=== PATIENT | male | born 1955 | race Caucasian/White ===

== ENCOUNTER 2017-11-19 21:02 | Inpatient (IN) | payer OTHER ==
[2017-11-19] MEDS ORDERED: AMPICILLIN-SULBACTAM 3 GM in SODIUM CHLORIDE 0.9% 100 ML IVPB STA (21:57)
[2017-11-19 22:37] LABS: Basophils % (A) 0 %; Eosinophils # (A) 0.2 k/uL (0-0.7); Eosinophils % (A) 2 %; HCT 48.6 % (39.0-53.0); HGB 16.4 gm/dL (13.0-17.5); Lymphocytes % (A) 14 %; MCH 30.3 pg (25.0-35.0); MCHC 33.7 g/dL (31.0-37.0); MCV 90.1 fL (80.0-100.0); Mean Platelet Volume 7.6; Monocytes # (A) 0.8 k/uL (0-1.0); Monocytes % (A) 6 %; Neutrophils # (A) 11.4 k/uL (1.3-7.7); Neutrophils % (A) 77 %; Platelet Count 415 k/uL (150-450); RDW 12.3 % (11.5-15.5); WBC 14.7 k/uL (3.8-10.6)
[2017-11-19 22:45] LABS: ALT 18 U/L (21-72); AST 21 U/L (17-59); Albumin 4.5 g/dL (3.5-5.0); Alkaline Phosphatase 119 U/L (38-126); Anion Gap 12 mmol/L; Blood Urea Nitrogen 7 mg/dL (9-20); Calcium 10.1 mg/dL (8.4-10.2); Carbon Dioxide 26 mmol/L (22-30); Chloride 101 mmol/L (98-107); Glucose 111 mg/dL (74-99); Potassium 3.8 mmol/L (3.5-5.1); Sodium 139 mmol/L (137-145); Total Bilirubin 2.7 mg/dL (0.2-1.3); Total Protein 8.1 g/dL (6.3-8.2)
[2017-11-19] MEDS: SODIUM CHLORIDE 0.9% 500 ML 500 ML IV SCH (23:20)
--- NOTE | 2017-11-19 23:38 | CT ---
EXAMINATION TYPE: CT soft tissue neck w con DATE OF EXAM: 11/19/2017 11:17 PM COMPARISON: None HISTORY: congestion CT DLP: 325.5 mGycm Automated exposure control for dose reduction was used. CONTRAST: CT scan of the neck is performed following with IV Contrast, patient injected with 100mL mL of Isovue 300. Axial images are obtained, coronal and sagittal reformatted images are reviewed. FINDINGS: There is normal branching pattern of the great vessels on the aortic arch. There is some heterogeneit y in the thyroid gland consistent with multinodular goiter. There is arterial flow in the vertebral and carotid arteries. There is normal contrast opacification of the jugular veins. Epiglottis appears normal. Subglottic trachea appears normal. Submandibular salivary glands appear normal. Parotid glands are symmetric. There is a 4 x 3 cm mixed density mass involving the right tonsil. This extends inferiorly into the h ypopharynx on the right side. The superior inferior extent of this abnormality is a proximally 6 cm. The mass crosses the midline and there is lobulated density on the left side of the posterior orophar ynx. There is mild mucosal thickening in the right-sided ethmoid sinus and to some extent the right side s phenoid sinus. There is minimal mucosal thickening at the floor right maxillary sinus. There is no ev idence of orbital mass. There are some spondylotic changes in the cervical spine. I see no bony destr uctive process. Mandible and maxilla appear intact. There is significant enlarged lymph nodes or tumor mass involving the anterior triangle on the right side. There is elevation of the right sternocleidomastoid mastoid muscle. This abnormality measures 4 x 3 cm. 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 There is a lso apparent tumor extension involving the anterior triangle right-sided cervical lymph nodes. Minimal ethmoid sphenoid and maxillary sinusitis.
[2017-11-19 23:58] LABS: Appearance,Urine Cloudy (Clear); Bilirubin,Urine Negative (Negative); Blood,Urine Small (Negative); Calcium Oxalate Crystals,Urine Moderate /hpf; Color,Urine Yellow; Glucose,Urine (UA) Negative (Negative); Hyaline Casts,Urine 1 /lpf (0-2); Ketones,Urine Negative (Negative); Leukocyte Esterase,Urine Negative (Negative); Mucus,Urine Moderate /hpf; Nitrite,Urine Negative (Negative); Protein,Urine 1+ (Negative); RBC,Urine 3 /hpf (0-5); Specific Gravity,Urine 1.018 (1.001-1.035); Squamous Epithelial Cell,Urine 1 /hpf (0-4); WBC,Urine 2 /hpf (0-5)
--- NOTE | 2017-11-20 00:15 | ED ---
General Adult HPI - General Source: patient, RN notes reviewed Mode of arrival: ambulatory Limitations: no limitations <Pipe Pereira - Last Filed: 11/19/17 23:58> <Priyanka Napoles P - Last Filed: 11/20/17 00:33> - General Chief complaint: Upper Respiratory Infection Stated complaint: congestion/poss sinus infection Time Seen by Provider: 11/19/17 21:37 - History of Present Illness Initial comments: 62-year-old male without any known past medical history presents to the emergency department for a chief complaint of congestion times one month. Patient states he has felt pressure in his face for about one month. He states he has swelling to the right side of his neck as well. Patient admits he has noticed that his voice began to sound different a few months ago. Patient states he has been a smoker his whole life but recently quit smoking a few weeks ago. Patient denies fevers or chills at home. Patient denies a sore throat but does admit that the right side of his tongue has been painful. Patient denies fevers or chills at home. Patient denies cough, shortness of breath, or difficulty breathing. Patient states he has not seen a doctor in over 35 years. Patient has no other complaints at this time including shortness of breath, chest pain, abdominal pain, nausea or vomiting, headache, or visual changes. (Pipe Pereira) - Related Data Allergies Allergy/AdvReac Type Severity Reaction Status Date / Time No Known Allergies Allergy Verified 11/19/17 21:14 Review of Systems ROS Other: All systems not noted in ROS Statement are negative. <Pipe Pereira - Last Filed: 11/19/17 23:58> ROS Other: All systems not noted in ROS Statement are negative. <Priyanka Napoles P - Last Filed: 11/20/17 00:33> ROS Statement: Those systems with pertinent positive or pertinent negative responses have been documented in the HPI. Past Medical History Past Medical History: No Reported History History of Any Multi-Drug Resistant Organisms: None Reported Past Surgical History: No Surgical Hx Reported Past Psychological History: No Psychological Hx Reported Smoking Status: Former smoker Past Alcohol Use History: None Reported Past Drug Use History: None Reported <Pipe Pereira - Last Filed: 11/19/17 23:58> General Exam Limitations: no limitations General appearance: alert, in no apparent distress Head exam: Present: atraumatic, normocephalic, normal inspection Eye exam: Present: normal appearance, PERRL, EOMI. Absent: scleral icterus, conjunctival injection, periorbital swelling ENT exam: Present: TM's normal bilaterally, normal external ear exam. Absent: normal oropharynx (Oropharynx appears erythematous/beefy and tonsillar pillars on right side of the pharynx appear irregular. ) Neck exam: Present: full ROM, lymphadenopathy (Patient has a very large cervical and submandibular lymph nodes noted to the right side of the neck.). Absent: tenderness, meningismus Respiratory exam: Present: normal lung sounds bilaterally. Absent: respiratory distress, wheezes, rales, rhonchi, stridor Cardiovascular Exam: Present: regular rate, normal rhythm, normal heart sounds. Absent: systolic murmur, diastolic murmur, rubs, gallop, clicks Neurological exam: Present: alert, oriented X3, CN II-XII intact Psychiatric exam: Present: normal affect, normal mood <Pipe Pereira P - Last Filed: 11/19/17 23:58> Vital Signs 11/19/17 11/20/17 21:10 00:02 Temperature 99.7 F H 98.0 F Pulse Rate 111 H 90 Respiratory 16 18 Rate Blood Pressure 142/84 174/92 O2 Sat by Pulse 98 98 Oximetry Medical Decision Making - Lab Data Result diagrams: 11/19/17 20:55 11/19/17 20:55 <Pipe Pereira P - Last Filed: 11/19/17 23:58> - Lab Data Result diagrams: 11/19/17 20:55 11/19/17 20:55 <Priyanka Napoles P - Last Filed: 11/20/17 00:33> - Medical Decision Making Pleasant 62-year-old male presents to the emergency department for a chief complaint of congestion times one month. Patient has not seen a doctor in over 35 years and does not have any known past medical history. Patient has been a smoker his whole life but recently quit "a few weeks ago." Patient admits he has noticed a change in his voice which began a few months ago. Patient thought this could be related to quitting smoking. On exam patient has large submandibular and cervical lymph nodes noted on the right side of the neck. Oropharynx appears beefy and erythematous. Right-sided tonsillar pillars appear irregular. Right side of the tongue is erythematous and there is mild breakdown. Suspected tumor involvement on exam. However as patient was mildly tachycardic with a low-grade temp of 99.7 and a chief complaint of sinusitis sepsis protocol was initiated and patient was started on IV antibiotics at the time. CBC showed a white count of 14.7. Bilirubin 2.7, CMP otherwise unremarkable. CT soft tissue neck with contrast shows a large lobulated right- sided pharyngeal mass consistent with tumor. There is also apparent tumor extension involving the anterior triangle right-sided cervical lymph nodes. Minimal sinusitis noted. Sepsis protocol was discontinued once pharyngeal mass was confirmed. Discussed these results with patient. At this time patient agrees to admission for the hospital for further evaluation. Will be admitted to medicine with ENT consult. (Pipe Pereira) I was available for consultation in the emergency department. The history and physical exam were done by the midlevel provider. I was consulted for this patient's care. I reviewed the case with the midlevel provider and based on their presentation of the patient, I agree with the assessment, medical decision making and plan of care as documented. (Priyanka Napoles) - Lab Data Lab Results 11/19/17 11/19/17 11/19/17 Range/Units 20:55 20:55 20:55 WBC 14.7 H (3.8-10.6) k/uL RBC 5.40 (4.30-5.90) m/uL Hgb 16.4 (13.0-17.5) gm/dL Hct 48.6 (39.0-53.0) % MCV 90.1 (80.0-100.0) fL MCH 30.3 (25.0-35.0) pg MCHC 33.7 (31.0-37.0) g/dL RDW 12.3 (11.5-15.5) % Plt Count 415 (150-450) k/uL Neutrophils % 77 % Lymphocytes % 14 % Monocytes % 6 % Eosinophils % 2 % Basophils % 0 % Neutrophils # 11.4 H (1.3-7.7) k/uL Lymphocytes # 2.0 (1.0-4.8) k/uL Monocytes # 0.8 (0-1.0) k/uL Eosinophils # 0.2 (0-0.7) k/uL Basophils # 0.0 (0-0.2) k/uL Sodium 139 (137-145) mmol/L Potassium 3.8 (3.5-5.1) mmol/L Chloride 101 (98-107) mmol/L Carbon Dioxide 26 (22-30) mmol/L Anion Gap 12 mmol/L BUN 7 L (9-20) mg/dL Creatinine 0.59 L (0.66-1.25) mg/dL Est GFR (CKD-EPI)AfAm >90 (>60 ml/min/1.73 sqM) Est GFR (CKD-EPI)NonAf >90 (>60 ml/min/1.73 sqM) Glucose 111 H (74-99) mg/dL Plasma Lactic Acid Sherman 1.6 (0.7-2.0) mmol/L Calcium 10.1 (8.4-10.2) mg/dL Total Bilirubin 2.7 H (0.2-1.3) mg/dL AST 21 (17-59) U/L ALT 18 L (21-72) U/L Alkaline Phosphatase 119 (38-126) U/L Total Protein 8.1 (6.3-8.2) g/dL Albumin 4.5 (3.5-5.0) g/dL Urine Color Urine Appearance (Clear) Urine pH (5.0-8.0) Ur Specific Interior (1.001-1.035) Urine Protein (Negative) Urine Glucose (UA) (Negative) Urine Ketones (Negative) Urine Blood (Negative) Urine Nitrite (Negative) Urine Bilirubin (Negative) Urine Urobilinogen (<2.0) mg/dL Ur Leukocyte Esterase (Negative) Urine RBC (0-5) /hpf Urine WBC (0-5) /hpf Ur Squamous Epith Cells (0-4) /hpf Calcium Oxalate Crystal (None) /hpf Hyaline Casts (0-2) /lpf Urine Mucus (None) /hpf 11/19/17 Range/Units 23:45 WBC (3.8-10.6) k/uL RBC (4.30-5.90) m/uL Hgb (13.0-17.5) gm/dL Hct (39.0-53.0) % MCV (80.0-100.0) fL MCH (25.0-35.0) pg MCHC (31.0-37.0) g/dL RDW (11.5-15.5) % Plt Count (150-450) k/uL Neutrophils % % Lymphocytes % % Monocytes % % Eosinophils % % Basophils % % Neutrophils # (1.3-7.7) k/uL Lymphocytes # (1.0-4.8) k/uL Monocytes # (0-1.0) k/uL Eosinophils # (0-0.7) k/uL Basophils # (0-0.2) k/uL Sodium (137-145) mmol/L Potassium (3.5-5.1) mmol/L Chloride (98-107) mmol/L Carbon Dioxide (22-30) mmol/L Anion Gap mmol/L BUN (9-20) mg/dL Creatinine (0.66-1.25) mg/dL Est GFR (CKD-EPI)AfAm (>60 ml/min/1.73 sqM) Est GFR (CKD-EPI)NonAf (>60 ml/min/1.73 sqM) Glucose (74-99) mg/dL Plasma Lactic Acid Sherman (0.7-2.0) mmol/L Calcium (8.4-10.2) mg/dL Total Bilirubin (0.2-1.3) mg/dL AST (17-59) U/L ALT (21-72) U/L Alkaline Phosphatase (38-126) U/L Total Protein (6.3-8.2) g/dL Albumin (3.5-5.0) g/dL Urine Color Yellow Urine Appearance Cloudy (Clear) Urine pH 6.0 (5.0-8.0) Ur Specific Interior 1.018 (1.001-1.035) Urine Protein 1+ H (Negative) Urine Glucose (UA) Negative (Negative) Urine Ketones Negative (Negative) Urine Blood Small H (Negative) Urine Nitrite Negative (Negative) Urine Bilirubin Negative (Negative) Urine Urobilinogen 8.0 (<2.0) mg/dL Ur Leukocyte Esterase Negative (Negative) Urine RBC 3 (0-5) /hpf Urine WBC 2 (0-5) /hpf Ur Squamous Epith Cells 1 (0-4) /hpf Calcium Oxalate Crystal Moderate H (None) /hpf Hyaline Casts 1 (0-2) /lpf Urine Mucus Moderate H (None) /hpf Disposition Time of Disposition: 00:15 <Pipe Pereira P - Last Filed: 11/19/17 23:58> <Priyanka Napoles P - Last Filed: 11/20/17 00:33> Clinical Impression: Pharyngeal mass Disposition: ADMITTED IP TO THIS HOSP Condition: Good Referrals: None,Stated [Primary Care Provider] - 1-2 days
[2017-11-20] MEDS ORDERED: NALOXONE 0.4 MG/ML 1 ML VIAL IV PRN (00:17)
[2017-11-20] MEDS ORDERED: ACETAMINOPHEN TAB 325 MG TAB PO PRN (00:17)
[2017-11-20] MEDS: SODIUM CHLORIDE 0.9% 500 ML 500 ML IV SCH ×3 (01:11→06:39)
[2017-11-20] MEDS: SODIUM CHLORIDE 0.9% 1,000 ML IV SCH ×3 (01:14→20:07)
[2017-11-20] MEDS: KETOROLAC 30 MG/ML 1 ML VIAL IVP PRN ×4 (01:15→20:06)
--- NOTE | 2017-11-20 13:45 | P.HPIM ---
History of Present Illness 62-year-old gentleman came in with the complaints of passing condition going on for about a month without any significant mass or discharge denied any cough runny nose. Patient the did smoke for years started noticing a mass in the right side of the neck patient had a soft tissue CAT scan which did show pharyngeal mass which is lobulated, ENT was consulted. Patient denied any fever chills nausea vomiting, any dental pain. She quit smoking a 3 weeks ago, denied any shortness of breath lightheadedness Review of Systems REVIEW OF SYSTEMS: CONSTITUTIONAL: No fever, no malaise, no fatigue. HEENT: No recent visual problems or hearing problems. Denied any sore throat. CARDIOVASCULAR: No chest pain, orthopnea, PND, no palpitations, no syncope. PULMONARY: No shortness of breath, no cough, no hemoptysis. GASTROINTESTINAL: No diarrhea, no nausea, no vomiting, no abdominal pain. Normoactive bowel sounds. NEUROLOGICAL: No headaches, no weakness, no numbness. HEMATOLOGICAL: Denies any bleeding or petechiae. GENITOURINARY: Denies any burning micturition, frequency, or urgency. MUSCULOSKELETAL/RHEUMATOLOGICAL: Denies any joint pain, swelling, or any muscle pain. ENDOCRINE: Denies any polyuria or polydipsia. The rest of the 14-point review of systems is negative. Past Medical History Past Medical History: No Reported History History of Any Multi-Drug Resistant Organisms: None Reported Past Surgical History: No Surgical Hx Reported Past Anesthesia/Blood Transfusion Reactions: No Reported Reaction Smoking Status: Former smoker - Past Family History Father Family Medical History: Cancer Additional Family Medical History / Comment(s): prostate cancer that spread to the brain Mother Family Medical History: Cancer Additional Family Medical History / Comment(s): ovarian cancer Sister(s) Family Medical History: Cancer Additional Family Medical History / Comment(s): breast cancer Medications and Allergies Home Medications Medication Instructions Recorded Confirmed Type Loratadine [Claritin] 10 mg PO DAILY PRN #30 tab 11/20/17 Rx Allergies Allergy/AdvReac Type Severity Reaction Status Date / Time No Known Allergies Allergy Verified 11/20/17 08:11 Physical Exam Vitals: Vital Signs Temp Pulse Pulse Resp BP BP Pulse Ox 11/20/17 07:13 98.2 F 73 16 147/83 99 11/20/17 05:30 89 18 11/20/17 01:48 98.3 F 89 18 164/89 97 11/20/17 01:40 89 18 11/20/17 01:17 98.2 F 86 20 147/89 98 11/20/17 00:02 98.0 F 90 18 174/92 98 11/19/17 21:10 99.7 F H 111 H 16 142/84 98 Intake and Output 11/19/17 11/20/17 11/20/17 22:59 06:59 14:59 Intake Total 1500 Balance 1500 Intake: Intake, IV Titration 1500 Amount Sodium Chloride 0.9% 1, 500 000 ml @ 100 mls/hr IV . Q10H DIANE Rx#:[id number] Sodium Chloride 0.9% 500 1000 ml @ 1000 mls/hr IV Q35M DIANE Rx#:[id number] Other: Voiding Method Toilet Toilet # Voids 2 Weight 81.647 kg 69.9 kg PHYSICAL EXAMINATION: GENERAL: The patient is alert and oriented x3, not in any acute distress. Well developed, well nourished. HEENT: Pupils are round and equally reacting to light. EOMI. No scleral icterus. No conjunctival pallor. Normocephalic, atraumatic. No pharyngeal erythema. No thyromegaly. Patient to no significant definitely congested but there is no tenderness in the maxillary ethmoid R mandibular sinus areas. Patient has a definite palpable right neck mass, hard in consistency CARDIOVASCULAR: S1 and S2 present. No murmurs, rubs, or gallops. PULMONARY: Chest is clear to auscultation, no wheezing or crackles. ABDOMEN: Soft, nontender, nondistended, normoactive bowel sounds. No palpable organomegaly. MUSCULOSKELETAL: No joint swelling or deformity. EXTREMITIES: No cyanosis, clubbing, or pedal edema. NEUROLOGICAL: Gross neurological examination did not reveal any focal deficits. SKIN: No rashes. Results CBC & Chem 7: 11/19/17 20:55 11/19/17 20:55 Labs: Abnormal Lab Results - Last 24 Hours (Table) 11/19/17 11/19/17 11/19/17 Range/Units 20:55 20:55 23:45 WBC 14.7 H (3.8-10.6) k/uL Neutrophils # 11.4 H (1.3-7.7) k/uL BUN 7 L (9-20) mg/dL Creatinine 0.59 L (0.66-1.25) mg/dL Glucose 111 H (74-99) mg/dL Total Bilirubin 2.7 H (0.2-1.3) mg/dL ALT 18 L (21-72) U/L Urine Protein 1+ H (Negative) Urine Blood Small H (Negative) Calcium Oxalate Crystal Moderate H (None) /hpf Urine Mucus Moderate H (None) /hpf Microbiology - Last 24 Hours (Table) 11/19/17 23:45 Urine Culture - Preliminary Urine,Clean Catch Thrombosis Risk Factor Assmnt - Choose All That Apply Any of the Below Risk Factors Present?: Yes Other Risk Factors: Yes Each Risk Factor Represents 2 Points: Age 61-74 years Other congenital or acquired thrombophilia - If yes, enter type in comment: No Thrombosis Risk Factor Assessment Total Risk Factor Score: 2 Thrombosis Risk Factor Assessment Level: Low Risk Assessment and Plan Plan: -Cough and congestion probably due to ALLERGIC rhinitis as a part do not believe patient needs antibiotics unless after ENT evaluation they believe antibiotics and patient will be discharged on antibiotics. Patient will be started on Claritin may benefit from Flonase. -Right-sided pharyngeal mass: Which may need biopsy and ENT will evaluate the patient and will decide on further plan depending on that will decide on his discharge -Leukocytosis reactive in nature -History of nicotine use which she recently quit Rule out urinary tract infection
--- NOTE | 2017-11-20 13:46 | P.DS ---
Providers Date of admission: 11/19/17 23:58 Attending physician: Tara Kumar Consults: 11/20/17 00:17 Consult Physician Stat Consulting Provider: Trevon Westbrook Reason/Comments: pharyngeal mass consistent with tumor Do you want consulting provider notified?: Yes Primary care physician: Stated None Hospital Course: Please refer to HPI and patient will be referred to Dr. Gatica as an outpatient and will follow-up with ENT as an outpatient Patient Condition at Discharge: Good Plan - Discharge Summary Discharge Rx Participant: No New Discharge Prescriptions: New Loratadine [Claritin] 10 mg PO DAILY PRN #30 tab PRN Reason: Cold Symptoms Discharge Medication List Loratadine [Claritin] 10 mg PO DAILY PRN #30 tab 11/20/17 [Rx] Follow up Appointment(s)/Referral(s): Raffi Gatica MD [REFERRING] - 1 Week None,Stated [Primary Care Provider] - 1-2 days Discharge Disposition: HOME SELF-CARE
[2017-11-20] MEDS ORDERED: RX INFO: IV CONTRAST WAS GIVEN 1 EACH MISC MISCELLANE PRN (17:02)
--- NOTE | 2017-11-20 17:16 | P.GSCN ---
History of Present Illness Consult date: 11/20/17 Reason for Consult: Throat swelling Requesting physician: Tara Kumar History of present illness: This is a 62-year-old white male who tells me that he's had a 50 pound weight loss in 2 months of significant difficulty swallowing. He feels a fullness to the right side of his throat and has developed a hot potato voice. 6 months ago he started noticing some swelling to the right neck and right throat. He ignored this but did quit smoking about 2 months ago. He has a 60-[id number]-apem history of smoking. His breathing has become slightly stridorous. He's not able to eat anything but a small amount of liquids. He is not in any distress but is concerned about his progressive throat closure and dysphagia and weight loss. CAT scan evaluation was done showing a large mass of the right oropharynx measuring about 6 cm with some cervical lymphadenopathy. I've been asked to consult regarding this mass. Review of Systems - Constitutional Reports lethargy, Reports malaise, Reports weakness, Reports weight loss, Denies chronic headaches, Denies sweats - EENT Ears, nose, mouth and throat: Reports ant. neck pain, Reports dysphagia, Reports odynophagia, Reports sore throat - Cardiovascular Denies claudication - Respiratory Reports cough - Gastrointestinal Denies bloating - Genitourinary Denies discharge - Musculoskeletal Denies atrophy - Integumentary Denies brittle nails - Neurological Denies balance difficulties - Psychiatric Denies anxiety attacks - Endocrine Endocrine Comment(s): Hot potato voice - Hematologic/Lymphatic Reports lymphadenopathy - Allergic/Immunologic Denies allergic rhinitis Past Medical History Past Medical History: No Reported History History of Any Multi-Drug Resistant Organisms: None Reported Past Surgical History: No Surgical Hx Reported Past Anesthesia/Blood Transfusion Reactions: No Reported Reaction Smoking Status: Former smoker - Past Family History Father Family Medical History: Cancer Additional Family Medical History / Comment(s): prostate cancer that spread to the brain Mother Family Medical History: Cancer Additional Family Medical History / Comment(s): ovarian cancer Sister(s) Family Medical History: Cancer Additional Family Medical History / Comment(s): breast cancer Medications and Allergies Home Medications Medication Instructions Recorded Confirmed Type Loratadine [Claritin] 10 mg PO DAILY PRN #30 tab 11/20/17 Rx Allergies Allergy/AdvReac Type Severity Reaction Status Date / Time No Known Allergies Allergy Verified 11/20/17 08:11 Surgical - Exam Osteopathic Statement: *. No significant issues noted on an osteopathic structural exam other than those noted in the History and Physical/Consult. Vital Signs Temp Pulse Resp BP Pulse Ox 99.7 F H 111 H 16 142/84 98 11/19/17 21:10 11/19/17 21:10 11/19/17 21:10 11/19/17 21:10 11/19/17 21:10 - General cachectic, chronically ill - Eyes PERRL, normal ocular movement - ENT Head is normal cephalic the face is symmetric. Ears the auricles are well- formed canals are clear. Nose is patent with a deviated septum. 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 normal pinna, normal nares, no no congestion - Neck no no masses, no no lymphadectomy - Respiratory normal expansion - Integumentary no rash, no growths - Neurologic normal coordination, normal sensation - Musculoskeletal normal gait - Psychiatric oriented to time, oriented to person, oriented to place, no speech is normal Results - Labs 11/19/17 20:55 11/19/17 20:55 Abnormal Lab Results - Last 24 Hours (Table) 11/19/17 11/19/17 11/19/17 Range/Units 20:55 20:55 23:45 WBC 14.7 H (3.8-10.6) k/uL Neutrophils # 11.4 H (1.3-7.7) k/uL BUN 7 L (9-20) mg/dL Creatinine 0.59 L (0.66-1.25) mg/dL Glucose 111 H (74-99) mg/dL Total Bilirubin 2.7 H (0.2-1.3) mg/dL ALT 18 L (21-72) U/L Urine Protein 1+ H (Negative) Urine Blood Small H (Negative) Calcium Oxalate Crystal Moderate H (None) /hpf Urine Mucus Moderate H (None) /hpf Microbiology - Last 24 Hours (Table) 11/19/17 23:45 Urine Culture - Preliminary Urine,Clean Catch Diabetes panel 11/19/17 Range/Units 20:55 Sodium 139 (137-145) mmol/L Potassium 3.8 (3.5-5.1) mmol/L Chloride 101 (98-107) mmol/L Carbon Dioxide 26 (22-30) mmol/L BUN 7 L (9-20) mg/dL Creatinine 0.59 L (0.66-1.25) mg/dL Glucose 111 H (74-99) mg/dL Calcium 10.1 (8.4-10.2) mg/dL AST 21 (17-59) U/L ALT 18 L (21-72) U/L Alkaline Phosphatase 119 (38-126) U/L Total Protein 8.1 (6.3-8.2) g/dL Albumin 4.5 (3.5-5.0) g/dL Calcium panel 11/19/17 Range/Units 20:55 Calcium 10.1 (8.4-10.2) mg/dL Albumin 4.5 (3.5-5.0) g/dL Pituitary panel 11/19/17 Range/Units 20:55 Sodium 139 (137-145) mmol/L Potassium 3.8 (3.5-5.1) mmol/L Chloride 101 (98-107) mmol/L Carbon Dioxide 26 (22-30) mmol/L BUN 7 L (9-20) mg/dL Creatinine 0.59 L (0.66-1.25) mg/dL Glucose 111 H (74-99) mg/dL Calcium 10.1 (8.4-10.2) mg/dL Adrenal panel 11/19/17 Range/Units 20:55 Sodium 139 (137-145) mmol/L Potassium 3.8 (3.5-5.1) mmol/L Chloride 101 (98-107) mmol/L Carbon Dioxide 26 (22-30) mmol/L BUN 7 L (9-20) mg/dL Creatinine 0.59 L (0.66-1.25) mg/dL Glucose 111 H (74-99) mg/dL Calcium 10.1 (8.4-10.2) mg/dL Total Bilirubin 2.7 H (0.2-1.3) mg/dL AST 21 (17-59) U/L ALT 18 L (21-72) U/L Alkaline Phosphatase 119 (38-126) U/L Total Protein 8.1 (6.3-8.2) g/dL Albumin 4.5 (3.5-5.0) g/dL Assessment and Plan (1) Cervical lymphadenopathy Current Visit: Yes Status: Acute Code(s): R59.0 - LOCALIZED ENLARGED LYMPH NODES SNOMED Code(s): 114482194 (2) Chronic stridor Current Visit: Yes Status: Acute Code(s): R06.1 - STRIDOR SNOMED Code(s): 48321400 (3) Dysphagia Current Visit: Yes Status: Acute Code(s): R13.10 - DYSPHAGIA, UNSPECIFIED SNOMED Code(s): 50901472 (4) Abnormal weight loss Current Visit: Yes Status: Acute Code(s): R63.4 - ABNORMAL WEIGHT LOSS SNOMED Code(s): 550976108 Plan: This patient has a very large 6 cm mass of the oropharynx extending from the nasopharynx down into the hypopharynx crossing the midline. He is developing some stridor and I do think a tracheotomy is needed along with a biopsy of this mass. A fine-needle aspiration is also recommended. Imaging has been ordered and I've consult did GI along with oncology as I suspect this mass is most likely malignant. We will be doing imaging tomorrow and biopsy on along with a tracheotomy. I anticipate he will be in the hospital for several days after tracheotomy. I talked to him and his in detail and have answered all her questions. I did tell him that I suspect this could be a malignancy and they understand this possibility. We will try to get him to eat a pured diet until a feeding tube can be placed. This patient's prognosis is guarded. A referral to a tertiary care center was also discussed and they will think about this option.
--- NOTE | 2017-11-20 17:18 | P.OP ---
Date of Procedure: 11/20/17 Preoperative Diagnosis: Oral pharyngeal mass, stridor, dysphagia Postoperative Diagnosis: Same Procedure(s) Performed: Flexible nasopharyngeal laryngoscopy Anesthesia: none Surgeon: Trevon Westbrook Estimated Blood Loss (ml): 0 Pathology: none sent Condition: stable Disposition: PACU Indications for Procedure: This patient has developed a hot potato voice dysphasia and weight loss. A mass was noted in his oropharynx and then evaluation of his airway was recommended. Operative Findings: Patient is a large 6 cm mass crossing the midline extending from the nasopharynx to the hypopharynx centered around the right tonsillar region. Description of Procedure: An EF type GP nasopharyngoscope was inserted and the patient's left nares and right nares. There is a mass noted in the right nasopharynx we passed the scope along the floor on the left side into the oropharynx and then into the hypopharynx. There was a mass obliterating most of the hypopharynx. The patient is able to breathe but there is some stridor developing. This is suspicious for malignancy.
[2017-11-20] MEDS: LORATADINE 10 MG TAB PO PRN (20:15)
[2017-11-21] MEDS: KETOROLAC 30 MG/ML 1 ML VIAL IVP PRN ×3 (01:18→13:19)
[2017-11-21] MEDS: SODIUM CHLORIDE 0.9% 1,000 ML IV SCH ×2 (05:33→18:44)
[2017-11-21] MEDS: IOPAMIDOL-300 CONTRAST 30 ML VIAL (ORAL USE) PO PRN ×2 (07:00→08:16)
--- NOTE | 2017-11-21 10:16 | CT ---
EXAMINATION TYPE: CT ChestAbdPelvis w con DATE OF EXAM: 11/21/2017 COMPARISON: None HISTORY: pharyngeal mass, possible mets CT DLP: 632.10 mGycm Automated exposure control for dose reduction was used. CONTRAST: CT scan of the chest, abdomen and pelvis is performed with Oral Contrast and with IV Contrast, patien t injected with 100 mL of Isovue 300. FINDINGS: LUNGS: The lungs are remarkable for emphysematous change, paraseptal emphysematous change at the apic es. No evident lung mass. There is no pleural effusion or pneumothorax seen. The tracheobronchial tr ee is patent. MEDIASTINUM: There are no greater than 1 cm hilar or mediastinal lymph nodes. No pericardial effusi on is seen. AORTA: No significant abnormality is seen. OTHER: No additional significant abnormality is seen. LIVER/GB: Within the posterior aspect of the right lobe of the liver at the level of the dome, axial image 44, coronal image 54 there is an enhancing focus measuring approximately 1.5 x 2 cm. Gallbladde r is normal. PANCREAS: No significant abnormality is seen. SPLEEN: No significant abnormality is seen. ADRENALS: No significant abnormality is seen. KIDNEYS: No significant abnormality is seen. REPRODUCTIVE ORGANS: No gross abnormality seen. BOWEL: No significant abnormality is seen. The appendix fills with contrast and is unremarkable. FREE AIR: No Free Air visible. ASCITES: None seen. RETROPERITONEAL ADENOPATHY: No retroperitoneal adenopathy is seen. LYMPH NODES: No greater than 1 cm abdominal or pelvic lymph nodes are appreciated. URINARY BLADDER: No significant abnormality is seen. PELVIC ADENOPATHY: None visualized. OSSEOUS STRUCTURES: Degenerative disc changes are present in the lumbar spine, there is multilevel sp ondylosis. IMPRESSION: Indeterminate right lobe liver lesion. Metastasis within the differential. Liver MRI with contrast may be of benefit.
--- NOTE | 2017-11-21 10:21 | P.CONS ---
History of Present Illness - Reason for Consult Consult date: 11/21/17 Dysphagia PEG tube evaluation Requesting physician: Tara Kumar - Chief Complaint Right neck swelling congestion - History of Present Illness 62-year-old male admitted with multiple complaints hoarseness, rhinitis, facial swelling, right neck edema with difficulty swallowing solids and liquids with mild odynophagia. CT soft tissue neck for 3 cm mixed with the mass involving the right tonsil extending inferiorly into the hypopharynx on the right side the mass crosses the midline and there is lobulated density in the left side of the posterior oropharynx. He underwent flexible nasopharyngeal laryngoscopy yesterday with findings of a large 6 m mass crossing the midline extending from the nasopharynx to the hypopharynx centered around the right tonsillar region. Consult requested for PEG tube evaluation for nutrition support and dysphagia secondary to the above CT endoscopic findings. Denies hematemesis hematochezia or melena. No history of gastric or bowel surgeries. Quit smoking 3 weeks ago. He is scheduled for triple endoscopy tracheostomy FNA tomorrow with ENT. White count 14.7. Hemoglobin 16.4. BUN 7. Creatinine 0.5. No aspirin and NSAIDs or anticoagulant medications. Review of Systems Constitutional: Denies fever, chills, sweats, weight gain, reports mild weight loss. HEENT: Negative for migraines, blurred vision or loss, earaches, reports increased nasal drainage, tinnitus, see HPI right neck swelling, reports dysphagia, and mild odynophagia. Cardiac: Negative for chest pain, arrhythmias, or palpitation. Respiratory: Negative for shortness of breath, hemoptysis, cough, or sputum production. Gastrointestinal: See HPI for pertinent findings. Genitourinary: Negative for hematuria, urgency, frequency, polyuria, dysuria, or penile discharge. Musculoskeletal: Negative for muscle aches, swelling, arthritis, and arthralgias. Neurologic: Negative for stroke or TIA. Endocrine: Negative for thyroid problems. Skin: Negative for rash or itching. Psychiatric: Negative history for depression and anxiety Past Medical History Past Medical History: No Reported History History of Any Multi-Drug Resistant Organisms: None Reported Past Surgical History: No Surgical Hx Reported Past Anesthesia/Blood Transfusion Reactions: No Reported Reaction Smoking Status: Former smoker - Past Family History Father Family Medical History: Cancer Additional Family Medical History / Comment(s): prostate cancer that spread to the brain Mother Family Medical History: Cancer Additional Family Medical History / Comment(s): ovarian cancer Sister(s) Family Medical History: Cancer Additional Family Medical History / Comment(s): breast cancer Medications and Allergies Home Medications Medication Instructions Recorded Confirmed Type Loratadine [Claritin] 10 mg PO DAILY PRN #30 tab 11/20/17 Rx Allergies Allergy/AdvReac Type Severity Reaction Status Date / Time No Known Allergies Allergy Verified 11/20/17 08:11 Physical Exam Vitals: Vital Signs Temp Pulse Resp BP BP Pulse Ox 11/21/17 07:15 97.9 F 79 18 137/87 98 11/21/17 04:00 15 11/20/17 23:57 98.2 F 63 15 125/72 97 11/20/17 23:42 71 16 11/20/17 20:10 71 16 11/20/17 19:32 97.4 F L 16 147/73 98 11/20/17 16:57 98 11/20/17 15:46 97.8 F 71 18 138/76 98 Intake and Output 11/20/17 11/21/17 11/21/17 22:59 06:59 14:59 Intake Total 565 Balance 565 Intake: Intake, IV Titration 300 Amount Sodium Chloride 0.9% 1, 300 000 ml @ 100 mls/hr IV . Q10H DIANE Rx#:[id number] Oral 265 Other: Voiding Method Toilet Toilet # Voids 2 General appearance: The patient is alert, oriented, in no acute distress. Voice is hoarse. HET: Head is normocephalic and atraumatic. Pupils are equal and reactive. Oropharynx is with noticeable right tonsillar mass erythematous with mild . Neck: Supple. Trachea midline. Heart: S1 S2. Regular rate and rhythm. Lungs: No crackles or wheezes are heard. Abdomen: Soft, nontender, nondistended with bowel sounds. No peritoneal signs. No palpable organomegaly or masses. Extremities: Normal skin color and turgor. No cyanosis, rash, ulceration, clubbing, or edema. Radial and pedal pulses are 2/4 bilaterally. Neurological: No focal deficits. Strength and sensation are grossly intact. Results CBC & Chem 7: 11/19/17 20:55 11/19/17 20:55 Labs: Microbiology - Last 24 Hours (Table) 11/19/17 20:55 Blood Culture - Preliminary Blood No Growth after 24 hours 11/19/17 23:45 Urine Culture - Preliminary Urine,Clean Catch Comments: CT neck report reviewed by Dr. Medina Assessment and Plan (1) Dysphagia Narrative/Plan: 62-year-old male admitted with multiple constitutional symptoms including rhinitis hoarseness right neck swelling and dysphagia mild odynophagia secondary to large 6 cm mass crossing the midline extending from the nasopharynx to the hypopharynx and around the right tonsillar region status post flexible nasopharyngeal laryngoscopy. Patient is unable to meet his nutritional needs secondary to tonsillar mass. Current Visit: Yes Status: Acute Code(s): R13.10 - DYSPHAGIA, UNSPECIFIED SNOMED Code(s): 61093949 (2) Pharyngeal mass Current Visit: Yes Status: Acute Code(s): J39.2 - OTHER DISEASES OF PHARYNX SNOMED Code(s): 872598203 Plan: 1. PEG tube insertion tomorrow morning 0700. Patient is scheduled for tracheostomy triple endoscopy FNA tomorrow with ENT. 2. Prealbumin. Dietary consultation for tube feeds. The orbitread operator has discussed the risks, benefits and alternative therapies for the above-mentioned procedure and for both sedation/analgesia as well as necessary blood product administration, if indicated, as they pertain to this patient. The patient has indicated understanding and acceptance of the risks and procedures discussed. Thank you for this kind referral and the opportunity to participate in the care of your patient. This consultation was discussed with Dr. Medina. The impression and plan of care have been directed as dictated.
--- NOTE | 2017-11-21 15:33 | P.PN ---
Subjective 60-year-old man was admitted the parapharyngeal mass in the right side found to have mass in the right nares extending up to the posterior hypopharynx there is a concern about airway obstruction because of which she and is recommending an emergency tracheostomy followed by PEG tube placement and then biopsy. Although at this point of time doesn't have any stridor. Constitutional: Denied any fatigue denied any fever. Cardio vascular: denied any chest pain, palpitations Gastrointestinal denied any nausea vomiting Pulmonary: Denied any shortness of breath cough Neurologic denied any new focal deficits Objective - Vital Signs Vital signs: Vital Signs Temp 98.0 F 11/21/17 11:15 Pulse 81 11/21/17 11:15 Resp 18 11/21/17 11:15 BP 143/76 11/21/17 11:15 Pulse Ox 98 11/21/17 11:15 Intake & Output 11/20/17 11/21/17 11/21/17 18:59 06:59 18:59 Intake Total 604 565 598 Balance 604 565 598 Weight 69.9 kg 69.9 kg Intake: Intake, IV Titration 300 Amount Sodium Chloride 0.9% 1, 300 000 ml @ 100 mls/hr IV . Q10H DIANE Rx#:[id number] Oral 604 265 598 Other: Voiding Method Toilet Toilet Toilet # Voids 1 2 3 - Exam PHYSICAL EXAMINATION: GENERAL: The patient is alert and oriented x3, not in any acute distress. Well developed, well nourished. HEENT: Pupils are round and equally reacting to light. EOMI. No scleral icterus. No conjunctival pallor. Normocephalic, atraumatic. No pharyngeal erythema. No thyromegaly. Patient has a right pharyngeal mass which is hard to palpate CARDIOVASCULAR: S1 and S2 present. No murmurs, rubs, or gallops. PULMONARY: Chest is clear to auscultation, no wheezing or crackles. ABDOMEN: Soft, nontender, nondistended, normoactive bowel sounds. No palpable organomegaly. MUSCULOSKELETAL: No joint swelling or deformity. EXTREMITIES: No cyanosis, clubbing, or pedal edema. NEUROLOGICAL: Gross neurological examination did not reveal any focal deficits. SKIN: No rashes. - Labs CBC & Chem 7: 11/19/17 20:55 11/19/17 20:55 Labs: Microbiology - Last 24 Hours (Table) 11/19/17 23:45 Urine Culture - Final Urine,Clean Catch 11/19/17 20:55 Blood Culture - Preliminary Blood No Growth after 24 hours Assessment and Plan Plan: -Right-sided nasopharyngeal mass: There is a concern of airway and the esophageal obstruction because of which patient will undergo tracheostomy and PEG tube placement followed by biopsy of this mass ENT evaluated the patient. -Leukocytosis reactive in nature -History of nicotine use which she recently quit Ruled out urinary tract infection
--- NOTE | 2017-11-21 16:17 | P.CONS ---
History of Present Illness - Reason for Consult Consult date: 11/21/17 oropharyngeal mass Requesting physician: Trevon Westbrook - Chief Complaint congestion, facila pressure, right neck mass - History of Present Illness Mr. Dotson is a very pleasant male pt with a benign past medical history. In the last month pt has had progressive swelling in the right neck, associated changes in speech,feelings of nasal congestion, mild dysphagia and audible breathing changes. The mass is hard but not painful. Pt denied fevers, night sweats, odynophagia, nausea, vomiting,chest pain, new cough, hemoptysis, abd pain, acute changes in bowel or bladder habits, swelling, bleeding or pain. Review of Systems 14 point ROS as stated in HPI Past Medical History Past Medical History: No Reported History History of Any Multi-Drug Resistant Organisms: None Reported Past Surgical History: No Surgical Hx Reported Past Anesthesia/Blood Transfusion Reactions: No Reported Reaction Past Psychological History: No Psychological Hx Reported Smoking Status: Former smoker Additional Past Alcohol Use History / Comment(s): Used to drink quite a bit of beer, quit several years ago Past Drug Use History: None Reported - Past Family History Father Family Medical History: Cancer Additional Family Medical History / Comment(s): prostate cancer that spread to the brain Mother Family Medical History: Cancer Additional Family Medical History / Comment(s): ovarian cancer Sister(s) Family Medical History: Cancer Additional Family Medical History / Comment(s): breast cancer Medications and Allergies Home Medications Medication Instructions Recorded Confirmed Type Loratadine [Claritin] 10 mg PO DAILY PRN #30 tab 11/20/17 Rx Allergies Allergy/AdvReac Type Severity Reaction Status Date / Time No Known Allergies Allergy Verified 11/20/17 08:11 Physical Exam Vitals: Vital Signs Temp Pulse Resp BP BP Pulse Ox 11/21/17 15:46 97.5 F L 75 18 139/81 98 11/21/17 11:15 98.0 F 81 18 143/76 98 11/21/17 07:15 97.9 F 79 18 137/87 98 11/21/17 04:00 15 11/20/17 23:57 98.2 F 63 15 125/72 97 11/20/17 23:42 71 16 11/20/17 20:10 71 16 11/20/17 19:32 97.4 F L 16 147/73 98 11/20/17 16:57 98 Intake and Output 11/21/17 11/21/17 11/21/17 06:59 14:59 22:59 Intake Total 598 Balance 598 Intake: Oral 598 Other: Voiding Method Toilet Toilet # Voids 3 Weight 69.9 kg - Constitutional General appearance: average body habitus, cooperative, no acute distress - EENT posterior, right soft palet deformity noted, not bleeding or draining Eyes: anicteric sclerae - Neck Elongated, hard, fixed mass approx 5cm in the anterior cervical chain, lymph node superior to that is palpable, there is mild trach deviation to the left, audible respirations, speech is impacted, nasal sounding Neck: lymphadenopathy, stridor - Respiratory Respiratory: bilateral: CTA - Cardiovascular Rhythm: regular Heart sounds: normal: S1, S2 Abnormal Heart Sounds: no systolic murmur, no diastolic murmur, no rub, no S3 Gallop, no S4 Gallop, no click, no other leg Peripheral Edema: bilateral: None - Gastrointestinal General gastrointestinal: no absent bowel sounds, no decreased bowel sounds, no distended, no hepatomegaly, no hyperactive bowel sounds, normal bowel sounds, no organomegaly, no rigid, no scaphoid, soft, no splenomegaly, no tenderness, no umbilical hernia, no ventral hernia - Integumentary Integumentary: normal - Neurologic Neurologic: CNII-XII intact - Musculoskeletal Musculoskeletal: strength equal bilaterally - Psychiatric Psychiatric: A&O x's 3, appropriate affect, intact judgment & insight Results CBC & Chem 7: 11/19/17 20:55 11/19/17 20:55 Labs: Microbiology - Last 24 Hours (Table) 11/19/17 23:45 Urine Culture - Final Urine,Clean Catch 11/19/17 20:55 Blood Culture - Preliminary Blood No Growth after 24 hours Comments: CT neck soft tissue report reviewed CT scan - abdomen: report reviewed CT scan - chest: report reviewed CT scan - pelvis: report reviewed Assessment and Plan (1) Pharyngeal mass Narrative/Plan: Pending biopsy with ENT Dr. Westbrook. Reviewed with pt concerns for malignancy and need for biopsy to determine origin-squamous cell, lymphoma...It was explained that no treatment plan or prognosis can be given until diagnosis and staging is complete. Pt verbalized understanding, is going to proceed with biopsy. We will plan for a PET outpatient and a f/u with Dr. Barron 3-5 days later for biopsy results/diagnosis, prognosis and treatment options. Current Visit: Yes Status: Acute Priority: High Code(s): J39.2 - OTHER DISEASES OF PHARYNX SNOMED Code(s): 003135780 (2) Cervical lymphadenopathy Current Visit: Yes Status: Acute Priority: High Code(s): R59.0 - LOCALIZED ENLARGED LYMPH NODES SNOMED Code(s): 544405868 (3) Dysphagia Narrative/Plan: PEG tube for feeding has already been discussed with pt and there is a consult for GI. Current Visit: Yes Status: Acute Priority: High Code(s): R13.10 - DYSPHAGIA, UNSPECIFIED SNOMED Code(s): 04326967 (4) Abnormal weight loss Narrative/Plan: Secondary to malignancy and from diet modification due to dysphagia Current Visit: Yes Status: Acute Priority: High Code(s): R63.4 - ABNORMAL WEIGHT LOSS SNOMED Code(s): 447540195 Plan: Attests: I have performed H&P and developed impression and plan of care of patient, discussed with dictator. I agree with dictated note, documented as a scribe.
[2017-11-21] MEDS: MORPHINE SULFATE 4 MG/ML SYRINGE IVP PRN ×2 (18:36→22:03)
[2017-11-21 20:20] LABS: INR 1.1 (<1.2); Prothrombin Time 10.8 sec (9.0-12.0)
[2017-11-22] MEDS: ONDANSETRON 4 MG/2 ML VIAL IVP PRN ×2 (01:00→13:41)
[2017-11-22] MEDS: SODIUM CHLORIDE 0.9% 1,000 ML IV SCH ×2 (03:47→15:55)
[2017-11-22] MEDS ORDERED: ceFAZolin IN SWFI 2 GM/20 ML SYRINGE IVP ONE (06:00)
[2017-11-22] MEDS ORDERED: DEXAMETHASONE SOD PHOSPHATE 10 MG/ML 1 ML VIAL IV ONE (06:01)
[2017-11-22] MEDS ORDERED: SCOPOLAMINE 1.5MG/72HR PATCH TRANSDERM ONE (06:01)
[2017-11-22] MEDS ORDERED: LACTATED RINGERS 1,000 ML IV SCH ×2 (06:01)
[2017-11-22] MEDS ORDERED: ONDANSETRON 4 MG/2 ML VIAL IVP ONE ×2 (06:01→08:42)
[2017-11-22] MEDS ORDERED: MIDAZOLAM 2 MG/2 ML VIAL IV PRN (06:01)
[2017-11-22] MEDS: MORPHINE SULFATE 4 MG/ML SYRINGE IVP PRN (06:40)
[2017-11-22] MEDS ORDERED: IV FLUID CONTINUATION 600 ML IV ONE (07:08)
--- NOTE | 2017-11-22 07:38 | P.PCN ---
Date of Procedure: 11/22/17 Procedure(s) Performed: Brief history: Patient is a 62-year-old pleasant white male, admitted to the hospital with cough dysphagia and hoarseness associated with loss of several weeks duration. He was diagnosed with a large hypopharyngeal mass and he scheduled for a couple of endoscopy today by Dr. Westbrook. In the meantime because of severe dysphagia and he is scheduled for an EGD with PEG tube placement today. Procedure performed: EGD with PEG tube placement Preoperative diagnosis: Hypopharyngeal mass/severe dysphagia to solids IV sedation by anesthesia Procedure: After informed consent was obtained with the patient as well as the family the patient was brought into the endoscopy unit. IV conscious sedation was administered by anesthesia under continuous monitoring. The Olympus GF 160 video endoscope was inserted into the mouth. There was a hypopharyngeal mass located on the right side of the hypopharynx. The esophagus intubated without any difficulty and was gradually advanced to the stomach and duodenum. The bulb and second part of the duodenum was visualized which appeared normal. The scope at this time was withdrawn to the stomach adequately insufflated with air. Adequate transillumination was achieved onto the anterior abdominal wall. At the site of adequate transillumination and maximal finger indentation, on the anterior abdominal wall, this area was sterilely prepped and draped. One percent Xylocaine was infiltrated into the skin and a small incision was made. Trocar and cannula was passed through the incision into the stomach cavity. The trocar was removed. Guidewire was passed through the cannula into the stomach cavity which was held by the snare that was passed through the scope. The guidewire along with the scope was gently withdrawn from the stomach esophagus out of the mouth. A 20-[place] [employer] PEG tube was passed over the guidewire and was gently advanced into the mouth and esophagus and stomach. With gentle traction the guidewire along with the PEG tube was pulled from the anterior abdominal wall until the internal bumper appeared to be in secure position. Repeat EGD was performed and the esophagus intubated without any difficulty and was advanced into the stomach. The internal bumper appeared to be in secure position. The visualized portions of the antrum body cardia and fundus of the stomach appeared normal. The esophagus was carefully examined as the scope was gradually being withdrawn which appeared normal. At this time external bumper was placed on the PEG tube closer to the anterior abdominal wall at 3 cm mohinder. The patient tolerated the procedure well. Impression: Successful 20-[place] [employer] PEG tube placement as described above. Recommendations: Findings of this examination were discussed with the patient's family. The patient will be started on tube feeds tomorrow. Post-PEG tube orders were written.
[2017-11-22] MEDS ORDERED: PHENYLEPHRINE-0.9% NACL SYG 1 MG/10 ML SYRINGE ONE (10:56)
[2017-11-22] MEDS ORDERED: LIDOCAINE 1% INJ 10MG/ML (20 ML MDV) ONE (10:56)
[2017-11-22] MEDS ORDERED: KETAMINE 10 MG/ML 20 ML VIAL ONE (10:56)
[2017-11-22] MEDS ORDERED: PROPOFOL 10 MG/ML 20 ML VIAL IV ONE (10:56)
[2017-11-22] MEDS ORDERED: MIDAZOLAM 2 MG/2 ML VIAL ONE (10:56)
[2017-11-22] MEDS ORDERED: IV FLUID CONTINUATION 1,000 ML IV ONE (10:59)
[2017-11-22] MEDS ORDERED: ceFAZolin 1,000 MG VIAL IVPB ONE (11:10)
[2017-11-22] MEDS ORDERED: LIDOCAINE 1%-EPI 1:100,000 30 ML VIAL SQ ONE (11:13)
[2017-11-22] MEDS ORDERED: FLUORESCEIN STRIPS 1 MG STRIP MISCELLANE ONE (11:14)
[2017-11-22] MEDS ORDERED: BUPIVACAIN-EPI 0.5%-1:200,000 30 ML VIAL SQ ONE (11:14)
[2017-11-22] MEDS ORDERED: EPINEPHrine 1 MG/ML (MDV) 30 ML VIAL IRRIGATION ONE (11:14)
[2017-11-22] MEDS ORDERED: LACTATED RINGERS 1,000 ML IV ONE (11:33)
--- NOTE | 2017-11-22 12:26 | OP ---
OPERATIVE REPORT DATE OF SERVICE: 11/22/2017. SURGEON: Trevon Westbrook D.O. ANESTHESIA: General. 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 OPERATIVE PROCEDURE: 1. Tracheotomy with ligation of thyroid isthmus and the isthmusectomy. 2. Fine-needle aspiration right neck mass and direct microscopic laryngoscopy with biopsy of oropharyngeal mass. BLOOD LOSS: Minimal. COMPLICATIONS: None. CONDITION: Excellent. OPERATIVE INDICATIONS: This patient has a large mass of the oropharynx causing stridor. Tracheotomy to secure his airway was recommended and biopsy of course was recommended. All risks, benefits, and alternative therapies were discussed. Consent was obtained and all questions were answered. OPERATIVE FINDINGS: Patient had a massive oropharyngeal mass, appears to be emanating from the right oropharynx in the tonsillar area emanating up into the nasopharynx down into the hypopharynx and across the midline to the left side of the throat. OPERATIVE PROCEDURE: This patient was taken to the operating room, placed in the supine position. IV sedation minimally was given to the patient. Neck was sterilely prepped and draped in usual fashion and the neck was injected with lidocaine 1% with epinephrine 1:100,000. A midline incision was made from the cricoid to the suprasternal notch and dissection was carried down to the strap muscles. The strap muscles were in the midline. The thyroid isthmus was identified and a thyroid isthmusectomy was performed utilizing a LigaSure, exposing the trachea. However, made an incision into the trachea between the second and third tracheal rings and an inferiorly-based flap was developed, an XLT Shiley tube #8 was inserted and nonfenestrated. The incision was closed with Vicryl utilizing a 4-0 Vicryl. The trach plates were sutured to the skin with the use of 3.0 and 2.0 silk and a trach tie was placed and the trach incision was closed appropriately. Excellent hemostasis was obtained. After the trach tube was inserted and the thyroid isthmusectomy was performed and the incision was closed, we ended at mouth and throat with an Jako laryngoscope. The patient had terrible dental care and his teeth were severely decayed. The laryngoscopy and biopsy was a bit limited and we did utilize the microscope, but because of the massive tumor, we were unable to extend into the entire length of the hypopharynx. Biopsies were taken of the right oropharynx and all instrumentation was removed. The patient tolerated this well. Neck underwent a fine-needle aspiration with a 22-gauge needle into a right neck mass. This was sent for pathology. Patient tolerated this well. Follow up will be in the office in 1 week. The patient is to be taken to the intensive care unit for close observation. His tracheotomy care by Respiratory Therapy has been ordered. MMODL / IJN: [id number] /
[2017-11-22 13:36] LABS: Glucose,Whole Blood 108 mg/dL (75-99)
--- NOTE | 2017-11-22 14:33 | P.CNPUL ---
History of Present Illness Consult date: 11/22/17 Requesting physician: Servando Jiménez Reason for consult: other (ICU management) Chief complaint: Right neck mass History of present illness: This is a 62-year-old white male, [id number] smoker, however he quit smoking about 2 months ago. Patient presented with 1 month history of progressive swelling in the right neck associated with speech changes and nasal congestion, dysphasia,and dysphagia. Patient has also been complaining of weight loss, lost about 40 pounds in the last few months. Mass was noted to be hard but not painful, he had no night sweats, no nausea no vomiting, no chest pain, no cough , no wheezing, no hemoptysis. Patient also developed a hot potato voice. Recently his breathing has become slightly stridorous, also unable to eat anything but a small amount of liquids patient was mostly concerned about the progressive closure of his throat and difficulty swallowing. He was also concerned about the weight loss. CT of the neck showed large mass in the right oropharynx measuring 6 AM with some cervical lymphadenopathy. Admitted and he was seen already by many consultants including ENT, oncology, gastroenterology, and he underwent tracheostomy today, lymph node biopsy and pharyngeal biopsy done by Dr. Zamarripa. Patient had fine-needle aspiration of the right neck mass, and direct microscopic H Heron P with biopsy of oropharyngeal mass. Postoperatively patient had tracheostomy in place, on 40% trach collar, admitted to the ICU, and I was asked to see him on consultation. Patient also underwent EGD and PEG tube placement by Dr. Rajan. Review of Systems 14 point review of systems were obtained, please refer to pertinent positives in HPI, otherwise remaining systems are negative. Past Medical History Past Medical History: No Reported History History of Any Multi-Drug Resistant Organisms: None Reported Past Surgical History: No Surgical Hx Reported Past Anesthesia/Blood Transfusion Reactions: No Reported Reaction Past Psychological History: No Psychological Hx Reported Smoking Status: Former smoker Additional Past Alcohol Use History / Comment(s): Used to drink quite a bit of beer, quit several years ago Past Drug Use History: None Reported - Past Family History Father Family Medical History: Cancer Additional Family Medical History / Comment(s): prostate cancer that spread to the brain Mother Family Medical History: Cancer Additional Family Medical History / Comment(s): ovarian cancer Sister(s) Family Medical History: Cancer Additional Family Medical History / Comment(s): breast cancer Medications and Allergies Home Medications Medication Instructions Recorded Confirmed Type Loratadine [Claritin] 10 mg PO DAILY PRN #30 tab 11/20/17 Rx Allergies Allergy/AdvReac Type Severity Reaction Status Date / Time No Known Allergies Allergy Verified 11/20/17 08:11 Physical Exam Vitals: Vital Signs Temp Pulse Pulse Resp BP Pulse Ox 11/22/17 13:00 99 18 146/72 98 11/22/17 12:45 97 18 133/82 99 11/22/17 12:30 99 18 147/81 99 11/22/17 12:14 98.3 F 96 20 124/73 94 L 11/22/17 10:32 79 18 137/82 97 11/22/17 10:00 78 20 133/71 94 L 11/22/17 09:30 76 20 135/70 93 L 11/22/17 09:00 77 20 124/74 96 11/22/17 08:53 80 18 154/79 95 11/22/17 08:45 85 20 154/79 96 11/22/17 08:30 83 20 150/62 96 11/22/17 08:15 90 20 155/62 97 11/22/17 08:00 85 20 162/83 96 11/22/17 07:51 97.3 F L 91 22 159/79 97 11/22/17 03:42 16 11/22/17 00:00 16 11/21/17 23:33 98.0 F 67 15 132/76 98 11/21/17 20:00 15 11/21/17 19:19 98.0 F 79 15 133/81 97 11/21/17 16:57 98 11/21/17 16:00 18 11/21/17 15:46 97.5 F L 75 18 139/81 98 Intake and Output 11/21/17 11/22/17 11/22/17 22:59 06:59 14:59 Intake Total 118 1000 Output Total 5 Balance 118 995 Intake: IV 1000 Oral 118 Output: Estimated Blood Loss 5 Other: Voiding Method Toilet Toilet # Voids 1 1 Physical Exam: Revealed a 62-year-old white male, resting in bed, tracheostomy in place, in no form of distress. Head: Atraumatic, normocephalic. HEENT:[Neck is supple.] Tracheostomy and trach collar in place, hard fixed mass approximately 5 cm in the anterior cervical chain, and superior lymph nodes palpable. PERRLA, EOMI, no icterus. Chest: [Harsh breath sound bilaterally, some rhonchi noted, no wheezes. Symmetrical expansion. No chest wall tenderness. Cardiac Exam: [Normal S1 and S2, no S3 gallop, no murmur.] Abdomen: [Soft, nontender, no megaly, no rebound, no guarding, normal bowel sounds.] Extremities: [No clubbing, no edema, no cyanosis.] Neurological Exam: [No focal neurologic deficit.] Lymphatics: As noted above. Musculoskeletal: Normal range of motion, no deformities. Psychiatric: Normal mood affect and mental status examination. Results - Laboratory Findings CBC and BMP: 11/19/17 20:55 11/19/17 20:55 PT/INR, D-dimer PT 10.8 sec (9.0-12.0) 11/21/17 19:45 INR 1.1 (<1.2) 11/21/17 19:45 Abnormal lab findings: Abnormal Labs 11/19/17 11/19/17 11/19/17 20:55 20:55 23:45 WBC 14.7 H Neutrophils # 11.4 H BUN 7 L Creatinine 0.59 L Glucose 111 H POC Glucose (mg/dL) Total Bilirubin 2.7 H ALT 18 L Prealbumin Urine Protein 1+ H Urine Blood Small H Calcium Oxalate Crystal Moderate H Urine Mucus Moderate H 11/21/17 11/22/17 19:45 13:34 WBC Neutrophils # BUN Creatinine Glucose POC Glucose (mg/dL) 108 H Total Bilirubin ALT Prealbumin 8.0 L Urine Protein Urine Blood Calcium Oxalate Crystal Urine Mucus - Diagnostic Findings Comments: CT of abdomen and chest neck pelvis report was noted. Assessment and Plan Assessment: Impression: 1 status post tracheostomy for impending respiratory failure secondary to large pharyngeal mass, status post biopsy of the mass, and fine-needle aspiration of cervical lymph node. 2 cervical lymphadenopathy considered to be malignant unless proven otherwise. 3 dysphagia secondary to neck mass 4 significant weight loss secondary to underlying malignancy 5 suspect some component of chronic obstructive lung disease 6 status post EGD and PEG tube placement 7 intermediate right lower lobe lesion may have to be further investigated once a tissue diagnosis is made on the pharyngeal mass. Recommendation: I fully agree with the present treatment plan, continue trach collar, titrate FiO2 to keep saturation above 90%, placed on bronchodilators, nutritional support via PEG to be started tomorrow, await final pathology from the biopsy of the pharyngeal mass and the lymph nodes. We'll continue to follow. Patient will be monitored in the ICU overnight. Time with Patient: Greater than 30
--- NOTE | 2017-11-22 15:37 | XR ---
EXAMINATION TYPE: XR chest 1V portable DATE OF EXAM: 11/22/2017 CLINICAL HISTORY: Difficulty breathing progress study. Tracheostomy tube placed today. TECHNIQUE: Single AP portable upright view of the chest is obtained. COMPARISON: CT from one day earlier FINDINGS: There is background chronic emphysematous change. There is suspected new tiny right apical pneumothorax. New tracheostomy tube is satisfactory in position. There is new pneumomediastinum supr aclavicular region, right greater than left. Some new patchy left basilar atelectasis is present. Rigo e subcutaneous emphysema may be present in the left lower lateral chest wall. Cardiac silhouette size is within normal limits. New pneumomediastinum is noted along left heart border. Osseous structures are intact. IMPRESSION: New tracheostomy tube satisfactory in position. New Pneumomediastinum is present. Suspect left-sided subcutaneous emphysema. Tiny right apical pneumothorax is noted. New left Basilar atelect asis. A Yellow level critical message alert has been initiated for Trevon Westbrook via the [employer] Critical Results System on 11/22/2017 3:34 PM. This message alert has been sent to Trevon benz via the preferences provided by the clinician for the receipt of Radiology Critical Findin gs. Message ID [id number].
[2017-11-22] MEDS: KETOROLAC 30 MG/ML 1 ML VIAL IVP PRN (15:54)
[2017-11-22] MEDS: IPRATROPIUM-ALBUTEROL 3 ML NEB INHALATION SCH ×2 (16:06→20:51)
[2017-11-22] MEDS ORDERED: METOCLOPRAMIDE 5 MG/ML 2 ML VIAL ONE (16:22)
--- NOTE | 2017-11-22 16:37 | P.PN ---
Subjective 62-year-old man was admitted the parapharyngeal mass in the right side found to have mass in the right nares extending up to the posterior hypopharynx there is a concern about airway obstruction because of which she and is recommending an emergency tracheostomy followed by PEG tube placement and then biopsy. Although at this point of time doesn't have any stridor. 11/22/2017 Patient underwent the tracheostomy, biopsy as well as PEG tube placement is admitted to ICU nonverbal now Objective - Vital Signs Vital signs: Vital Signs Temp 98.3 F 11/22/17 12:14 Pulse 93 11/22/17 16:23 Resp 18 11/22/17 13:00 BP 146/72 11/22/17 13:00 Pulse Ox 98 11/22/17 13:00 Intake & Output 11/21/17 11/22/17 11/22/17 18:59 06:59 18:59 Intake Total 716 1000 Output Total 5 Balance 716 995 Weight 69.9 kg Intake: IV 1000 Oral 716 Output: Estimated Blood Loss 5 Other: Voiding Method Toilet Toilet # Voids 3 1 - Exam PHYSICAL EXAMINATION: GENERAL: The patient is alert and oriented x3, not in any acute distress. Well developed, well nourished. Tracheostomy in place HEENT: Pupils are round and equally reacting to light. EOMI. No scleral icterus. No conjunctival pallor. Normocephalic, atraumatic. No pharyngeal erythema. No thyromegaly. Patient has a right pharyngeal mass which is hard to palpate CARDIOVASCULAR: S1 and S2 present. No murmurs, rubs, or gallops. PULMONARY: Chest is clear to auscultation, no wheezing or crackles. ABDOMEN: Soft, nontender, nondistended, normoactive bowel sounds. No palpable organomegaly. PEG Tube in place MUSCULOSKELETAL: No joint swelling or deformity. EXTREMITIES: No cyanosis, clubbing, or pedal edema. NEUROLOGICAL: Gross neurological examination did not reveal any focal deficits. SKIN: No rashes. - Labs CBC & Chem 7: 11/19/17 20:55 11/19/17 20:55 Labs: Abnormal Lab Results - Last 24 Hours (Table) 11/21/17 11/22/17 Range/Units 19:45 13:34 POC Glucose (mg/dL) 108 H (75-99) mg/dL Prealbumin 8.0 L (18.0-42.0) mg/dL Microbiology - Last 24 Hours (Table) 11/19/17 20:55 Blood Culture - Preliminary Blood No Growth after 48 hours Assessment and Plan Plan: -Right-sided nasopharyngeal mass: There is a concern of airway and the esophageal obstruction because of which patient went tracheostomy and PEG tube placement and biopsy biopsy for his nasopharyngeal mass -Leukocytosis reactive in nature -History of nicotine use which she recently quit Ruled out urinary tract infection
[2017-11-22] MEDS: PANTOPRAZOLE 40 MG/10 ML VIAL IV SCH (21:54)
[2017-11-23] MEDS: MORPHINE SULFATE 4 MG/ML SYRINGE IVP PRN ×3 (02:40→22:02)
[2017-11-23] MEDS: SODIUM CHLORIDE 0.9% 1,000 ML IV SCH ×2 (05:12→11:51)
[2017-11-23 05:15] LABS: Basophils % (A) 0 %; Eosinophils # (A) 0.1 k/uL (0-0.7); Eosinophils % (A) 1 %; HCT 39.8 % (39.0-53.0); Lymphocytes # (A) 1.5 k/uL (1.0-4.8); Lymphocytes % (A) 9 %; MCHC 32.8 g/dL (31.0-37.0); MCV 91.3 fL (80.0-100.0); Mean Platelet Volume 7.5; Monocytes # (A) 1.1 k/uL (0-1.0); Monocytes % (A) 7 %; Neutrophils # (A) 12.6 k/uL (1.3-7.7); Neutrophils % (A) 82 %; Platelet Count 353 k/uL (150-450); RBC 4.36 m/uL (4.30-5.90); RDW 12.4 % (11.5-15.5); WBC 15.3 k/uL (3.8-10.6)
[2017-11-23 05:19] LABS: HGB 13.1 gm/dL (13.0-17.5)
[2017-11-23 05:27] LABS: Anion Gap 8 mmol/L; Blood Urea Nitrogen 5 mg/dL (9-20); Calcium 8.8 mg/dL (8.4-10.2); Carbon Dioxide 25 mmol/L (22-30); Chloride 103 mmol/L (98-107); Glucose 74 mg/dL (74-99); Magnesium 1.6 mg/dL (1.6-2.3); Phosphorus 3.5 mg/dL (2.5-4.5); Potassium 3.6 mmol/L (3.5-5.1); Sodium 136 mmol/L (137-145)
[2017-11-23] MEDS ORDERED: Potassium Replacement Protocol 1 EACH MISC MISCELLANE PRN (05:33)
[2017-11-23] MEDS ORDERED: Magnesium Replacement Protocol 1 EACH MISC MISCELLANE PRN (05:34)
[2017-11-23] MEDS: MAGNESIUM SULFATE-D5W PMX 1 GM in DEXTROSE/WATER 1 100ML.BAG IVPB SCH ×2 (05:49→07:44)
[2017-11-23] MEDS: POTASSIUM CHLORIDE 10 MEQ in WATER FOR INJECTION 1 100ML.BAG IVPB SCH ×2 (05:49→11:12)
[2017-11-23] MEDS: PANTOPRAZOLE 40 MG/10 ML VIAL IV SCH ×2 (08:08→22:02)
[2017-11-23] MEDS: ENOXAPARIN 40 MG/0.4 ML SYRINGE SQ SCH (08:08)
[2017-11-23] MEDS: IPRATROPIUM-ALBUTEROL 3 ML NEB INHALATION SCH ×4 (09:06→20:48)
--- NOTE | 2017-11-23 10:16 | XR ---
EXAMINATION TYPE: XR chest 1V portable DATE OF EXAM: 11/23/2017 COMPARISON: 11/22/2017 INDICATION: Pneumomediastinum TECHNIQUE: Single frontal view of the chest is obtained. FINDINGS: The heart size is normal. The pulmonary vasculature is normal. The lungs are clear. Pneumomediastinum remains present. Tracheostomy tube is in the midline. Subcutaneous air is in the ri ght neck. This is diminished from comparison. IMPRESSION: 1. Persistent pneumomediastinum. 2. Diminishing right neck subcutaneous air. 3. Tracheostomy tube within the midline
--- NOTE | 2017-11-23 10:52 | P.PN ---
Subjective Progress Note Date: 11/23/17 Principal diagnosis: Large pharyngeal mass, status post tracheostomy postoperative day #1 This is a 62-year-old white male, [id number] smoker, however he quit smoking about 2 months ago. Patient presented with 1 month history of progressive swelling in the right neck associated with speech changes and nasal congestion, dysphasia,and dysphagia. Patient has also been complaining of weight loss, lost about 40 pounds in the last few months. Mass was noted to be hard but not painful, he had no night sweats, no nausea no vomiting, no chest pain, no cough , no wheezing, no hemoptysis. Patient also developed a hot potato voice. Recently his breathing has become slightly stridorous, also unable to eat anything but a small amount of liquids patient was mostly concerned about the progressive closure of his throat and difficulty swallowing. He was also concerned about the weight loss. CT of the neck showed large mass in the right oropharynx measuring 6 AM with some cervical lymphadenopathy. Admitted and he was seen already by many consultants including ENT, oncology, gastroenterology, and he underwent tracheostomy today, lymph node biopsy and pharyngeal biopsy done by Dr. Zamarripa. Patient had fine-needle aspiration of the right neck mass, and direct microscopic H Heron P with biopsy of oropharyngeal mass. Postoperatively patient had tracheostomy in place, on 40% trach collar, admitted to the ICU, and I was asked to see him on consultation. Patient also underwent EGD and PEG tube placement by Dr. Rajan. Patient was reevaluated today on 11/23/2017, doing well, he is postoperative day #1, status post tracheostomy, pharyngeal mass biopsy, cervical lymph node biopsy, and PEG tube placement. Patient remains on trach collar, doing quite well, relatively asymptomatic. Today we have started using the PEG tube, patient seems to be tolerating the feeding relatively well. No major issues overnight. His chest x-ray yesterday and today showed a small pneumomediastinum and small tiny apical pneumothorax. Basically the same today compared to yesterday. And there is some subcutaneous emphysema in the supraclavicular area noted. Hence I plan to transfer the patient out of the ICU to a medical floor today. Labs were reviewed relatively normal electrolytes , normal renal profile, and normal CBC except for WBC count of 15.3. Objective - Vital Signs Vital signs: Vital Signs Temp 98.5 F 11/23/17 08:00 Pulse 86 11/23/17 09:22 Resp 12 11/23/17 09:00 BP 160/90 11/23/17 09:00 Pulse Ox 99 11/23/17 09:00 Intake & Output 11/22/17 11/23/17 11/23/17 18:59 06:59 18:59 Intake Total 1150 1175 325 Output Total 455 300 0 Balance 695 875 325 Weight 46.6 kg 45 kg 45 kg Intake: IV 1150 1100 325 Magnesium Sulfate-D5w Pmx 100 100 1 gm In Dextrose/Water 1 100ml.bag @ 100 mls/hr IVPB Q1H DIANE Rx#: [id number] Potassium Chloride 10 meq 100 In Water For Injection 1 100ml.bag @ 100 mls/hr IVPB Q1H DIANE Rx#: [id number] Sodium Chloride 0.9% 1, 150 900 225 000 ml @ 75 mls/hr IV . [id number] DIANE Rx#:[id number] Oral 75 Output: Urine 450 300 0 Estimated Blood Loss 5 Other: Voiding Method Bedside Commode Bedside Commode Urinal Urinal # Bowel Movements 1 - Exam Physical Exam: 62-year-old in no distress tracheostomy in place, Head: Atraumatic, normocephalic. HEENT:[Neck is supple.] Tracheostomy and trach collar in place, hard fixed mass approximately 5 cm in the anterior cervical chain, and superior lymph nodes palpable. Chest: [Good and clear breath sounds bilaterally, no rhonchi no wheezes Cardiac Exam: [Normal S1 and S2, no S3 gallop, no murmur.] Abdomen: [Soft, nontender, no megaly, no rebound, no guarding, normal bowel sounds.] PEG tube is intact. Extremities: [No clubbing, no edema, no cyanosis.] Neurological Exam: [No focal neurologic deficit.] Alert oriented 3, nonverbal because of his tracheostomy Lymphatics: As noted above. Musculoskeletal: Normal range of motion, no deformities. Psychiatric: Normal mood affect and mental status examination. - Labs CBC & Chem 7: 11/23/17 04:21 11/23/17 04:21 Labs: Abnormal Lab Results - Last 24 Hours (Table) 11/22/17 11/23/17 11/23/17 Range/Units 13:34 04:21 04:21 WBC 15.3 H (3.8-10.6) k/uL Neutrophils # 12.6 H (1.3-7.7) k/uL Monocytes # 1.1 H (0-1.0) k/uL Sodium 136 L (137-145) mmol/L BUN 5 L (9-20) mg/dL Creatinine 0.49 L (0.66-1.25) mg/dL POC Glucose (mg/dL) 108 H (75-99) mg/dL Microbiology - Last 24 Hours (Table) 11/19/17 20:55 Blood Culture - Preliminary Blood No Growth after 72 hours Assessment and Plan Assessment: Impression: 1 status post tracheostomy for impending respiratory failure secondary to large pharyngeal mass, status post biopsy of the mass, and fine-needle aspiration of cervical lymph node. 2 cervical lymphadenopathy considered to be malignant unless proven otherwise. 3 dysphagia secondary to neck mass 4 significant weight loss secondary to underlying malignancy 5 suspect some component of chronic obstructive lung disease 6 status post EGD and PEG tube placement 7 intermediate right lower lobe of the liver lesion may have to be further investigated once a tissue diagnosis is made on the pharyngeal mass. Recommendation: Continue present supportive care measures, patient will be transferred out of the ICU to a regular medical floor, continue PEG tube feeding , nutritional support, GI and DVT prophylaxis, will follow. Time with Patient: Less than 30
--- NOTE | 2017-11-23 11:31 | P.PN ---
Subjective Progress Note Date: 11/23/17 Principal diagnosis: Dysphagia 62-year-old gentleman admitted with oropharyngeal mass dysphagia status post tracheotomy isthmusectomy FNA and PEG tube placement. Patient receiving tube feeds this morning without difficulty. Denies abdominal pain redness or drainage around site. Afebrile. Objective - Vital Signs Vital signs: Vital Signs Temp 98.5 F 11/23/17 08:00 Pulse 90 11/23/17 11:00 Resp 19 11/23/17 11:00 BP 146/84 11/23/17 11:00 Pulse Ox 100 11/23/17 11:00 Intake & Output 11/22/17 11/23/17 11/23/17 18:59 06:59 18:59 Intake Total 1150 1175 575 Output Total 455 300 0 Balance 695 875 575 Weight 46.6 kg 45 kg 45 kg Intake: IV 1150 1100 575 Magnesium Sulfate-D5w Pmx 100 100 1 gm In Dextrose/Water 1 100ml.bag @ 100 mls/hr IVPB Q1H DIANE Rx#: [id number] Potassium Chloride 10 meq 100 100 In Water For Injection 1 100ml.bag @ 100 mls/hr IVPB Q1H DIANE Rx#: [id number] Sodium Chloride 0.9% 1, 150 900 375 000 ml @ 75 mls/hr IV . [id number] DIANE Rx#:[id number] Oral 75 Output: Urine 450 300 0 Estimated Blood Loss 5 Other: Voiding Method Bedside Commode Bedside Commode Urinal Urinal # Bowel Movements 1 - Exam General appearance: The patient is alert, oriented, in no acute distress. HET: Head is normocephalic and atraumatic. Pupils are equal and reactive. Oropharynx is clear without lesions. Neck: Supple without lymphadenopathy. Trachea midline. Trach collar intact. Heart: S1 S2. Regular rate and rhythm. Lungs: No crackles or wheezes are heard. Abdomen: Soft, nontender, nondistended with bowel sounds. PEG tube infusing with feeds. No erythema or drainage. No peritoneal signs. No palpable organomegaly or masses. Extremities: Normal skin color and turgor. No cyanosis, rash, ulceration, clubbing, or edema. Radial and pedal pulses are 2/4 bilaterally. Neurological: No focal deficits. Strength and sensation are grossly intact. - Labs CBC & Chem 7: 11/23/17 04:21 11/23/17 04:21 Labs: Abnormal Lab Results - Last 24 Hours (Table) 11/22/17 11/23/17 11/23/17 Range/Units 13:34 04:21 04:21 WBC 15.3 H (3.8-10.6) k/uL Neutrophils # 12.6 H (1.3-7.7) k/uL Monocytes # 1.1 H (0-1.0) k/uL Sodium 136 L (137-145) mmol/L BUN 5 L (9-20) mg/dL Creatinine 0.49 L (0.66-1.25) mg/dL POC Glucose (mg/dL) 108 H (75-99) mg/dL Microbiology - Last 24 Hours (Table) 11/19/17 20:55 Blood Culture - Preliminary Blood No Growth after 72 hours Assessment and Plan (1) Dysphagia Narrative/Plan: 62-year-old male admitted with multiple constitutional symptoms including rhinitis hoarseness right neck swelling and dysphagia mild odynophagia secondary to large 6 cm mass crossing the midline extending from the nasopharynx to the hypopharynx and around the right tonsillar region status post tracheotomy isthmusectomy FNA PEG tube placement. Current Visit: Yes Status: Acute Priority: High Code(s): R13.10 - DYSPHAGIA, UNSPECIFIED SNOMED Code(s): 45875587 (2) Pharyngeal mass Current Visit: Yes Status: Acute Priority: High Code(s): J39.2 - OTHER DISEASES OF PHARYNX SNOMED Code(s): 501064831 Plan: 1. Continue with feeds as advised by dietitian. Continue GI prophylaxis. We' ll sign off and be available for questions or concerns. Assessment care discussed with Dr. Uriarte
[2017-11-23 12:31] LABS: Glucose,Whole Blood 111 mg/dL (75-99)
--- NOTE | 2017-11-23 15:37 | P.PN ---
Subjective 62-year-old man was admitted the parapharyngeal mass in the right side found to have mass in the right nares extending up to the posterior hypopharynx there is a concern about airway obstruction because of which she and is recommending an emergency tracheostomy followed by PEG tube placement and then biopsy. Although at this point of time doesn't have any stridor. 11/22/2017 Patient underwent the tracheostomy, biopsy as well as PEG tube placement is admitted to ICU nonverbal now 11/23/2017 Patient is clinically doing well family will undergo teaching for tracheostomy. Patient is at the 20 mL/h of PEG tube feedings which will be advanced to 50 mL an probably will be discharged home tomorrow. Objective - Vital Signs Vital signs: Vital Signs Temp 98.4 F 11/23/17 15:00 Pulse 96 11/23/17 15:00 Resp 16 11/23/17 15:00 BP 150/53 11/23/17 15:00 Pulse Ox 99 11/23/17 15:00 Intake & Output 11/22/17 11/23/17 11/23/17 18:59 06:59 18:59 Intake Total 1150 1175 575 Output Total 455 300 0 Balance 695 875 575 Weight 46.6 kg 45 kg 80 kg Intake: IV 1150 1100 575 Magnesium Sulfate-D5w Pmx 100 100 1 gm In Dextrose/Water 1 100ml.bag @ 100 mls/hr IVPB Q1H DIANE Rx#: [id number] Potassium Chloride 10 meq 100 100 In Water For Injection 1 100ml.bag @ 100 mls/hr IVPB Q1H DIANE Rx#: [id number] Sodium Chloride 0.9% 1, 150 900 375 000 ml @ 75 mls/hr IV . [id number] DIANE Rx#:[id number] Oral 75 Output: Urine 450 300 0 Estimated Blood Loss 5 Other: Voiding Method Bedside Commode Bedside Commode Urinal Urinal # Bowel Movements 1 - Exam PHYSICAL EXAMINATION: GENERAL: The patient is alert and oriented x3, not in any acute distress. Well developed, well nourished. Tracheostomy in place HEENT: Pupils are round and equally reacting to light. EOMI. No scleral icterus. No conjunctival pallor. Normocephalic, atraumatic. No pharyngeal erythema. No thyromegaly. Patient has a right pharyngeal mass which is hard to palpate CARDIOVASCULAR: S1 and S2 present. No murmurs, rubs, or gallops. PULMONARY: Chest is clear to auscultation, no wheezing or crackles. ABDOMEN: Soft, nontender, nondistended, normoactive bowel sounds. No palpable organomegaly. PEG Tube in place MUSCULOSKELETAL: No joint swelling or deformity. EXTREMITIES: No cyanosis, clubbing, or pedal edema. NEUROLOGICAL: Gross neurological examination did not reveal any focal deficits. SKIN: No rashes. - Labs CBC & Chem 7: 11/23/17 04:21 11/23/17 04:21 Labs: Abnormal Lab Results - Last 24 Hours (Table) 11/23/17 11/23/17 11/23/17 Range/Units 04:21 04:21 12:28 WBC 15.3 H (3.8-10.6) k/uL Neutrophils # 12.6 H (1.3-7.7) k/uL Monocytes # 1.1 H (0-1.0) k/uL Sodium 136 L (137-145) mmol/L BUN 5 L (9-20) mg/dL Creatinine 0.49 L (0.66-1.25) mg/dL POC Glucose (mg/dL) 111 H (75-99) mg/dL Microbiology - Last 24 Hours (Table) 11/19/17 20:55 Blood Culture - Preliminary Blood No Growth after 72 hours Assessment and Plan Plan: -Right-sided nasopharyngeal mass: There is a concern of airway and the esophageal obstruction because of which patient went tracheostomy and PEG tube placement and biopsy biopsy for his nasopharyngeal mass -Leukocytosis reactive in nature -History of nicotine use which she recently quit Ruled out urinary tract infection
[2017-11-23 18:14] LABS: Glucose,Whole Blood 130 mg/dL (75-99)
[2017-11-23] MEDS: KETOROLAC 30 MG/ML 1 ML VIAL IVP PRN (18:33)
[2017-11-23 20:08] LABS: Hemoglobin A1C 5.5 % (4.0-6.0)
[2017-11-23] MEDS: ONDANSETRON 4 MG/2 ML VIAL IVP PRN (22:34)
[2017-11-24 01:13] LABS: Glucose,Whole Blood 106 mg/dL (75-99)
[2017-11-24] MEDS: SODIUM CHLORIDE 0.9% 1,000 ML IV SCH ×2 (04:20→16:12)
[2017-11-24 06:43] LABS: Glucose,Whole Blood 141 mg/dL (75-99)
[2017-11-24] MEDS: IPRATROPIUM-ALBUTEROL 3 ML NEB INHALATION SCH ×4 (08:18→20:39)
[2017-11-24 08:32] LABS: Basophils % (A) 0 %; Eosinophils # (A) 0.2 k/uL (0-0.7); Eosinophils % (A) 2 %; HCT 39.4 % (39.0-53.0); HGB 12.6 gm/dL (13.0-17.5); Lymphocytes # (A) 0.9 k/uL (1.0-4.8); Lymphocytes % (A) 7 %; MCH 29.8 pg (25.0-35.0); MCHC 32.1 g/dL (31.0-37.0); Mean Platelet Volume 7.8; Monocytes % (A) 8 %; Neutrophils # (A) 10.3 k/uL (1.3-7.7); Neutrophils % (A) 83 %; Platelet Count 366 k/uL (150-450); RBC 4.24 m/uL (4.30-5.90); RDW 12.5 % (11.5-15.5); WBC 12.5 k/uL (3.8-10.6)
[2017-11-24 08:42] LABS: Anion Gap 7 mmol/L; Blood Urea Nitrogen 7 mg/dL (9-20); Calcium 8.7 mg/dL (8.4-10.2); Carbon Dioxide 27 mmol/L (22-30); Chloride 106 mmol/L (98-107); Glucose 130 mg/dL (74-99); Magnesium 1.9 mg/dL (1.6-2.3); Phosphorus 2.5 mg/dL (2.5-4.5); Potassium 3.5 mmol/L (3.5-5.1); Sodium 140 mmol/L (137-145)
[2017-11-24] MEDS: PANTOPRAZOLE 40 MG/10 ML VIAL IV SCH ×2 (09:41→21:54)
[2017-11-24] MEDS: ENOXAPARIN 40 MG/0.4 ML SYRINGE SQ SCH (09:41)
[2017-11-24 11:04] VITALS: BMI 27.3
[2017-11-24] MEDS ORDERED: POTASSIUM CHLORIDE ER 20 MEQ TAB.ER PO STA (12:09)
[2017-11-24 12:14] LABS: Glucose,Whole Blood 125 mg/dL (75-99)
[2017-11-24] MEDS: MORPHINE SULFATE 4 MG/ML SYRINGE IVP PRN (12:55)
[2017-11-24] MEDS: LORATADINE 10 MG TAB PO PRN (13:41)
[2017-11-24] MEDS: ONDANSETRON 4 MG/2 ML VIAL IVP PRN (13:43)
--- NOTE | 2017-11-24 16:03 | P.PN ---
Subjective 62-year-old man was admitted the parapharyngeal mass in the right side found to have mass in the right nares extending up to the posterior hypopharynx there is a concern about airway obstruction because of which she and is recommending an emergency tracheostomy followed by PEG tube placement and then biopsy. Although at this point of time doesn't have any stridor. 11/22/2017 Patient underwent the tracheostomy, biopsy as well as PEG tube placement is admitted to ICU nonverbal now 11/23/2017 Patient is clinically doing well family will undergo teaching for tracheostomy. Patient is at the 20 mL/h of PEG tube feedings which will be advanced to 50 mL an probably will be discharged home tomorrow. 11/24/2017 Tracheostomy oxygenation settings and the PEG tube feedings are being optimized Objective - Vital Signs Vital signs: Vital Signs Temp 98.2 F 11/24/17 15:00 Pulse 89 11/24/17 15:00 Resp 16 11/24/17 15:14 BP 138/78 11/24/17 15:00 Pulse Ox 97 11/24/17 15:00 Intake & Output 11/23/17 11/24/17 11/24/17 18:59 06:59 18:59 Intake Total 575 120 150 Output Total 0 Balance 575 120 150 Weight 80 kg 77 kg 77 kg Intake: IV 575 Magnesium Sulfate-D5w Pmx 100 1 gm In Dextrose/Water 1 100ml.bag @ 100 mls/hr IVPB Q1H DIANE Rx#: [id number] Potassium Chloride 10 meq 100 In Water For Injection 1 100ml.bag @ 100 mls/hr IVPB Q1H DIANE Rx#: [id number] Sodium Chloride 0.9% 1, 375 000 ml @ 75 mls/hr IV . [id number] DIANE Rx#:[id number] Tube Feeding 120 150 Output: Urine 0 Other: Voiding Method Bedside Commode Bedside Commode Urinal Urinal # Voids 1 2 - Exam PHYSICAL EXAMINATION: GENERAL: The patient is alert and oriented x3, not in any acute distress. Well developed, well nourished. Tracheostomy in place HEENT: Pupils are round and equally reacting to light. EOMI. No scleral icterus. No conjunctival pallor. Normocephalic, atraumatic. No pharyngeal erythema. No thyromegaly. Patient has a right pharyngeal mass which is hard to palpate CARDIOVASCULAR: S1 and S2 present. No murmurs, rubs, or gallops. PULMONARY: Chest is clear to auscultation, no wheezing or crackles. ABDOMEN: Soft, nontender, nondistended, normoactive bowel sounds. No palpable organomegaly. PEG Tube in place MUSCULOSKELETAL: No joint swelling or deformity. EXTREMITIES: No cyanosis, clubbing, or pedal edema. NEUROLOGICAL: Gross neurological examination did not reveal any focal deficits. SKIN: No rashes. - Labs CBC & Chem 7: 11/24/17 07:36 11/24/17 07:36 Labs: Abnormal Lab Results - Last 24 Hours (Table) 11/23/17 11/24/17 11/24/17 Range/Units 18:02 00:59 06:39 WBC (3.8-10.6) k/uL RBC (4.30-5.90) m/uL Hgb (13.0-17.5) gm/dL Neutrophils # (1.3-7.7) k/uL Lymphocytes # (1.0-4.8) k/uL BUN (9-20) mg/dL Creatinine (0.66-1.25) mg/dL Glucose (74-99) mg/dL POC Glucose (mg/dL) 130 H 106 H 141 H (75-99) mg/dL 11/24/17 11/24/17 11/24/17 Range/Units 07:36 07:36 12:13 WBC 12.5 H (3.8-10.6) k/uL RBC 4.24 L (4.30-5.90) m/uL Hgb 12.6 L (13.0-17.5) gm/dL Neutrophils # 10.3 H (1.3-7.7) k/uL Lymphocytes # 0.9 L (1.0-4.8) k/uL BUN 7 L (9-20) mg/dL Creatinine 0.51 L (0.66-1.25) mg/dL Glucose 130 H (74-99) mg/dL POC Glucose (mg/dL) 125 H (75-99) mg/dL Microbiology - Last 24 Hours (Table) 11/19/17 20:55 Blood Culture - Preliminary Blood No Growth after 96 hours Assessment and Plan Plan: -Right-sided nasopharyngeal mass: There is a concern of airway and the esophageal obstruction because of which patient went tracheostomy and PEG tube placement and biopsy biopsy for his nasopharyngeal mass -Leukocytosis reactive in nature -History of nicotine use which she recently quit Ruled out urinary tract infection
[2017-11-24 19:03] LABS: Glucose,Whole Blood 133 mg/dL (75-99)
[2017-11-24] MEDS: KETOROLAC 30 MG/ML 1 ML VIAL IVP PRN (20:19)
[2017-11-25 00:09] LABS: Glucose,Whole Blood 116 mg/dL (75-99)
[2017-11-25] MEDS: MORPHINE SULFATE 4 MG/ML SYRINGE IVP PRN (01:47)
[2017-11-25] MEDS: ONDANSETRON 4 MG/2 ML VIAL IVP PRN ×3 (05:53→20:48)
[2017-11-25] MEDS: SODIUM CHLORIDE 0.9% 1,000 ML IV SCH ×2 (05:54→18:18)
[2017-11-25 06:28] LABS: Glucose,Whole Blood 92 mg/dL (75-99)
[2017-11-25] MEDS: PANTOPRAZOLE 40 MG/10 ML VIAL IV SCH ×2 (07:56→20:45)
[2017-11-25] MEDS: ENOXAPARIN 40 MG/0.4 ML SYRINGE SQ SCH (07:56)
[2017-11-25] MEDS: IPRATROPIUM-ALBUTEROL 3 ML NEB INHALATION SCH ×4 (08:52→20:58)
[2017-11-25 09:26] LABS: Basophils % (A) 0 %; Eosinophils # (A) 0.5 k/uL (0-0.7); Eosinophils % (A) 3 %; HCT 38.7 % (39.0-53.0); HGB 13.1 gm/dL (13.0-17.5); Lymphocytes # (A) 1.3 k/uL (1.0-4.8); Lymphocytes % (A) 9 %; MCH 30.4 pg (25.0-35.0); MCHC 33.9 g/dL (31.0-37.0); MCV 89.9 fL (80.0-100.0); Mean Platelet Volume 7.7; Monocytes # (A) 0.9 k/uL (0-1.0); Monocytes % (A) 6 %; Neutrophils # (A) 11.3 k/uL (1.3-7.7); Neutrophils % (A) 80 %; Platelet Count 406 k/uL (150-450); RDW 12.4 % (11.5-15.5); WBC 14.1 k/uL (3.8-10.6)
[2017-11-25 09:41] LABS: Anion Gap 6 mmol/L; Blood Urea Nitrogen 8 mg/dL (9-20); Calcium 8.5 mg/dL (8.4-10.2); Carbon Dioxide 28 mmol/L (22-30); Chloride 108 mmol/L (98-107); Glucose 110 mg/dL (74-99); Magnesium 1.8 mg/dL (1.6-2.3); Phosphorus 2.9 mg/dL (2.5-4.5); Sodium 142 mmol/L (137-145)
[2017-11-25 09:45] LABS: Potassium 3.7 mmol/L (3.5-5.1)
[2017-11-25] MEDS: LORATADINE 10 MG TAB PO PRN (10:10)
--- NOTE | 2017-11-25 12:03 | P.PN ---
Subjective 62-year-old man was admitted the parapharyngeal mass in the right side found to have mass in the right nares extending up to the posterior hypopharynx there is a concern about airway obstruction because of which she and is recommending an emergency tracheostomy followed by PEG tube placement and then biopsy. Although at this point of time doesn't have any stridor. 11/22/2017 Patient underwent the tracheostomy, biopsy as well as PEG tube placement is admitted to ICU nonverbal now 11/23/2017 Patient is clinically doing well family will undergo teaching for tracheostomy. Patient is at the 20 mL/h of PEG tube feedings which will be advanced to 50 mL an probably will be discharged home tomorrow. 11/24/2017 Tracheostomy oxygenation settings and the PEG tube feedings are being optimized 11/25/2017 no overnight events Objective - Vital Signs Vital signs: Vital Signs Temp 98.4 F 11/25/17 06:11 Pulse 87 11/25/17 09:17 Resp 16 11/25/17 06:11 BP 163/81 11/25/17 06:11 Pulse Ox 98 11/25/17 06:11 Intake & Output 11/24/17 11/25/17 11/25/17 18:59 06:59 18:59 Intake Total 150 150 Balance 150 150 Weight 77 kg 79 kg Intake: Tube Feeding 150 150 Other: Voiding Method Bedside Commode Urinal # Voids 2 1 3 # Bowel Movements 3 - Exam PHYSICAL EXAMINATION: GENERAL: The patient is alert and oriented x3, not in any acute distress. Well developed, well nourished. Tracheostomy in place HEENT: Pupils are round and equally reacting to light. EOMI. No scleral icterus. No conjunctival pallor. Normocephalic, atraumatic. No pharyngeal erythema. No thyromegaly. Patient has a right pharyngeal mass which is hard to palpate CARDIOVASCULAR: S1 and S2 present. No murmurs, rubs, or gallops. PULMONARY: Chest is clear to auscultation, no wheezing or crackles. ABDOMEN: Soft, nontender, nondistended, normoactive bowel sounds. No palpable organomegaly. PEG Tube in place MUSCULOSKELETAL: No joint swelling or deformity. EXTREMITIES: No cyanosis, clubbing, or pedal edema. NEUROLOGICAL: Gross neurological examination did not reveal any focal deficits. SKIN: No rashes. - Labs CBC & Chem 7: 11/25/17 08:59 11/25/17 08:59 Labs: Abnormal Lab Results - Last 24 Hours (Table) 11/24/17 11/24/17 11/25/17 Range/Units 12:13 18:57 00:06 WBC (3.8-10.6) k/uL Hct (39.0-53.0) % Neutrophils # (1.3-7.7) k/uL Chloride (98-107) mmol/L BUN (9-20) mg/dL Creatinine (0.66-1.25) mg/dL Glucose (74-99) mg/dL POC Glucose (mg/dL) 125 H 133 H 116 H (75-99) mg/dL 11/25/17 11/25/17 Range/Units 08:59 08:59 WBC 14.1 H (3.8-10.6) k/uL Hct 38.7 L (39.0-53.0) % Neutrophils # 11.3 H (1.3-7.7) k/uL Chloride 108 H (98-107) mmol/L BUN 8 L (9-20) mg/dL Creatinine 0.48 L (0.66-1.25) mg/dL Glucose 110 H (74-99) mg/dL POC Glucose (mg/dL) (75-99) mg/dL Microbiology - Last 24 Hours (Table) 11/19/17 20:55 Blood Culture - Preliminary Blood No Growth after 120 hours Assessment and Plan Plan: -Right-sided nasopharyngeal mass: Status post tracheostomy and PEG tube placement and biopsy biopsy for his nasopharyngeal mass -Leukocytosis reactive in nature -History of nicotine use which she recently quit Ruled out urinary tract infection
[2017-11-25 12:17] LABS: Glucose,Whole Blood 134 mg/dL (75-99)
[2017-11-25] MEDS: HYDROcodone/APAP 5-325MG 1 EACH TAB PO PRN ×2 (13:10→21:59)
[2017-11-26 00:56] VITALS: RESP 18
[2017-11-26 01:16] LABS: Glucose,Whole Blood 128 mg/dL (75-99)
[2017-11-26] MEDS: ONDANSETRON 4 MG/2 ML VIAL IVP PRN ×2 (03:30→14:47)
[2017-11-26] MEDS: SODIUM CHLORIDE 0.9% 1,000 ML IV SCH (05:44)
[2017-11-26 06:37] LABS: Glucose,Whole Blood 114 mg/dL (75-99)
[2017-11-26 07:11] VITALS: BP 151/79; TEMP 98.6
[2017-11-26] MEDS: IPRATROPIUM-ALBUTEROL 3 ML NEB INHALATION SCH ×2 (07:20→10:52)
[2017-11-26 08:36] LABS: Anion Gap 5 mmol/L; Blood Urea Nitrogen 6 mg/dL (9-20); Calcium 8.7 mg/dL (8.4-10.2); Carbon Dioxide 33 mmol/L (22-30); Chloride 103 mmol/L (98-107); Glucose 97 mg/dL (74-99); Magnesium 1.8 mg/dL (1.6-2.3); Phosphorus 3.6 mg/dL (2.5-4.5); Sodium 141 mmol/L (137-145)
[2017-11-26 08:48] LABS: Basophils # (A) 0.1 k/uL (0-0.2); Basophils % (A) 0 %; Eosinophils # (A) 0.5 k/uL (0-0.7); Eosinophils % (A) 4 %; HGB 12.3 gm/dL (13.0-17.5); Lymphocytes # (A) 1.4 k/uL (1.0-4.8); Lymphocytes % (A) 12 %; MCH 30.1 pg (25.0-35.0); MCHC 33.2 g/dL (31.0-37.0); MCV 90.7 fL (80.0-100.0); Mean Platelet Volume 6.8; Monocytes # (A) 0.8 k/uL (0-1.0); Monocytes % (A) 7 %; Neutrophils # (A) 8.5 k/uL (1.3-7.7); Neutrophils % (A) 75 %; Platelet Count 428 k/uL (150-450); RBC 4.08 m/uL (4.30-5.90); RDW 12.5 % (11.5-15.5); WBC 11.4 k/uL (3.8-10.6)
[2017-11-26] MEDS: ENOXAPARIN 40 MG/0.4 ML SYRINGE SQ SCH (10:33)
[2017-11-26] MEDS: PANTOPRAZOLE 40 MG/10 ML VIAL IV SCH (10:33)
[2017-11-26 11:10] VITALS: PULSE 86
[2017-11-26 12:04] LABS: Glucose,Whole Blood 101 mg/dL (75-99)
--- NOTE | 2017-11-26 16:45 | P.DS ---
Providers Date of admission: 11/19/17 23:58 Expected date of discharge: 11/26/17 Attending physician: Tara Jiménez Consults: 11/20/17 00:17 Consult Physician Stat Consulting Provider: Trevon Trujillo Consult Reason/Comments: pharyngeal mass consistent with tumor Do you want consulting provider notified?: Yes 11/20/17 17:02 Consult Physician Routine Consulting Provider: Hemanth Gamboa Consult Reason/Comments: Oropharyngeal mass with neck nodes, biopsy Do you want consulting provider notified?: Yes, Notify in am 11/22/17 13:13 Consult Physician Stat Consulting Provider: Cory Chavez Consult Reason/Comments: ICU Management Do you want consulting provider notified?: Yes Primary care physician: Stated None Hospital Course: Final Diagnoses: -Right-sided nasopharyngeal mass: Status post tracheostomy and PEG tube placement and biopsy biopsy for his nasopharyngeal mass, pathology. -Leukocytosis reactive in nature -History of nicotine use which she recently quit Ruled out urinary tract infection, urine culture negative, asymptomatic Hospital course:62-year-old man was admitted the parapharyngeal mass in the right side found to have mass in the right nares extending up to the posterior hypopharynx there is a concern about airway obstruction because of which she and is recommending an emergency tracheostomy followed by PEG tube placement and then biopsy. Although at this point of time doesn't have any stridor. 11/22/2017 Patient underwent the tracheostomy, biopsy as well as PEG tube placement is admitted to ICU nonverbal now 11/23/2017 Patient is clinically doing well family will undergo teaching for tracheostomy. Patient is at the 20 mL/h of PEG tube feedings which will be advanced to 50 mL an probably will be discharged home tomorrow. 11/24/2017 Tracheostomy oxygenation settings and the PEG tube feedings are being optimized 11/25/2017 no overnight events 11/26/2017 pathology pending, home care /DME/supplies arranged/confirmed. Patient has been cleared by all consults for discharge. Patient is being discharged home in a stable condition with guarded prognosis. EXAMINATION: GENERAL: The patient is alert and oriented x3, not in any acute distress. Well developed, well nourished. Tracheostomy in place CARDIOVASCULAR: S1 and S2 present. No murmurs, rubs, or gallops. PULMONARY: Chest is clear to auscultation, no wheezing or crackles. ABDOMEN: Soft, nontender, nondistended, normoactive bowel sounds. No palpable organomegaly. PEG Tube in place NEUROLOGICAL: Gross neurological examination did not reveal any focal deficits. The impression and plan of care has been dictated as directed. : I performed a history and examination of this patient, discussed the same with the dictator. I agree with the dictator's note ,documented as a scribe. Any additional findings or plans will be noted. Time taken: 35 minutes Patient Condition at Discharge: Stable Plan - Discharge Summary Discharge Rx Participant: No New Discharge Prescriptions: New Loratadine [Claritin] 10 mg PO DAILY PRN #30 tab PRN Reason: Cold Symptoms HYDROcodone/APAP 5-325MG [[place] 5-325] 1 each PO Q6HR PRN #12 tab PRN Reason: Moderate Pain Ondansetron HCl [Zofran] 4 mg PO Q6HR PRN #20 tablet PRN Reason: Nausea Pantoprazole Sodium [Protonix] 40 mg PO DAILY #30 tablet.dr Discharge Medication List Loratadine [Claritin] 10 mg PO DAILY PRN #30 tab 11/20/17 [Rx] HYDROcodone/APAP 5-325MG [[place] 5-325] 1 each PO Q6HR PRN #12 tab 11/26/17 [Rx] Ondansetron HCl [Zofran] 4 mg PO Q6HR PRN #20 tablet 11/26/17 [Rx] Pantoprazole Sodium [Protonix] 40 mg PO DAILY #30 tablet. 11/26/17 [Rx] Follow up Appointment(s)/Referral(s): Cory Chavez MD [STAFF PHYSICIAN] - 2 Weeks Iván Barron MD [STAFF PHYSICIAN] - 1 Week Raffi Gatica MD [REFERRING] - 1 Week Trevon Trujillo DO [Doctor of Osteopathic Medicine] - 11/29/17 [facility], [NON-STAFF] - [facility], [REFERRING] - Ambulatory/Diagnostic Orders: Complete Blood Count w/diff [LAB.AMB] Time Frame: 3 Days, Location: None Selected Patient Instructions/Handouts: Tracheostomy Care (DC) Activity/Diet/Wound Care/Special Instructions: 1. [facility] to deliver trach supplies: (they contacted already to arrange delivery) - [phone] 2. Tube Feed Supplies: [facility] - will be delivered on 11/24/17 Rec: [facility] 1.5 BOLUS 5 cans daily=>1200cc, 1800kcal with 250cc H2O 4 x daily 3. stitches from trach site may be removed after 7 days. 11/29/17. should follow up with dr. trujillo's office for this.
== END 2017-11-26 16:55 | disposition home health service (06) | DRG 12 ==
LOC: EC 21:02 → 3OBS 23:58 → OBSVTOIN 23:58 → 6ICU 11-22 10:26 → 4MS4W 11-23 11:36
PROVIDERS: ADMIT Internal Medicine; ATTEND Internal Medicine
PROC: 0CJS8ZZ Inspection of Larynx, Via Natural or Artificial Opening Endoscopic (ICD-10-PCS; principal; 2017-11-20)
PROC: 0GBJ0ZZ Excision of Thyroid Gland Isthmus, Open Approach (ICD-10-PCS; 2017-11-22)
PROC: 07B Lymphatic and Hemic Systems, Excision (ICD-10-PCS; 2017-11-22)
PROC: 0CBM8ZX Excision of Pharynx, Via Natural or Artificial Opening Endoscopic, Diagnostic (ICD-10-PCS; 2017-11-22)
PROC: 0CB Mouth and Throat, Excision (ICD-10-PCS; 2017-11-22)
PROC: 0DH63UZ Insertion of Feeding Device into Stomach, Percutaneous Approach (ICD-10-PCS; 2017-11-22)
PROC: 0DJ08ZZ Inspection of Upper Intestinal Tract, Via Natural or Artificial Opening Endoscopic (ICD-10-PCS; 2017-11-22)
PROC: 3E0G76Z Introduction of Nutritional Substance into Upper GI, Via Natural or Artificial Opening (ICD-10-PCS; 2017-11-22)
PROC: 0B110F4 Bypass Trachea to Cutaneous with Tracheostomy Device, Open Approach (ICD-10-PCS; 2017-11-22 09:45)
DX: C11.8 Malignant neoplasm of overlapping sites of nasopharynx (principal); C77.0 Secondary and unspecified malignant neoplasm of lymph nodes of head, face and neck; T79.7XXA Traumatic subcutaneous emphysema, initial encounter; Z87.891 Personal history of nicotine dependence; J30.9 Allergic rhinitis, unspecified; K76.9 Liver disease, unspecified; R13.12 Dysphagia, oropharyngeal phase; Z80.3 Family history of malignant neoplasm of breast; Z80.42 Family history of malignant neoplasm of prostate; D72.828 Other elevated white blood cell count; Z80.41 Family history of malignant neoplasm of ovary; R63.4 Abnormal weight loss; Z68.28 Body mass index [BMI] 28.0-28.9, adult; R06.1 Stridor
CPT/HCPCS: 36415; 43246; 70491; 71045; 71260; 74177; 80048; 80053; 81001; 83036; 83605; 83735; 84100; 84134; 85025; 85610; 87040; 87086; 88173; 88305; 88342; 94640; 94760; 96361; 96365; 96374; 99284

== ENCOUNTER → 2017-12-01 | Outpatient (CLI) | payer SELFPAY ==
[2017-12-01 11:57] LABS: Basophils # (A) 0.1 k/uL (0-0.2); Basophils % (A) 0 %; Eosinophils # (A) 0.5 k/uL (0-0.7); Eosinophils % (A) 3 %; HCT 41.9 % (39.0-53.0); HGB 13.4 gm/dL (13.0-17.5); Lymphocytes # (A) 1.9 k/uL (1.0-4.8); Lymphocytes % (A) 14 %; MCV 93.8 fL (80.0-100.0); Mean Platelet Volume 7.2; Monocytes # (A) 0.9 k/uL (0-1.0); Monocytes % (A) 6 %; Neutrophils # (A) 10.6 k/uL (1.3-7.7); Neutrophils % (A) 75 %; Platelet Count 567 k/uL (150-450); RBC 4.47 m/uL (4.30-5.90); RDW 12.6 % (11.5-15.5); WBC 14.2 k/uL (3.8-10.6)
[2017-12-01 12:10] LABS: Anion Gap 11 mmol/L; Blood Urea Nitrogen 12 mg/dL (9-20); Calcium 9.9 mg/dL (8.4-10.2); Carbon Dioxide 28 mmol/L (22-30); Chloride 100 mmol/L (98-107); Glucose 97 mg/dL (74-99); Potassium 5.6 mmol/L (3.5-5.1); Sodium 139 mmol/L (137-145)
== END ==
LOC: LABWHC1 10:38
PROVIDERS: ATTEND Nurse Practitioner
DX: D64.9 Anemia, unspecified (principal); J39.2 Other diseases of pharynx
CPT/HCPCS: 36415; 80048; 85025

== ENCOUNTER → 2017-12-01 | Outpatient (CLI) | payer SELFPAY ==
--- NOTE | 2017-12-02 18:29 | PE ---
EXAMINATION TYPE: PET CT fusion skull to thigh DATE OF EXAM: 12/01/2017 CLINICAL HISTORY: 62-year-old male initial staging head and neck cancer. Patient with tracheostomy Oc tober 2017. TECHNIQUE: Following the intravenous administration of 10.5 mCi of F-18 FDG, initial coned-down therese ging of the head and neck was performed followed by whole body images from the skull base to the midt high. Images are reviewed on the computer in the coronal, axial, and sagittal planes. Reconstructed rotating images are created on independent workstation and reviewed on the computer. A localizatio n and attenuation correction CT is performed in conjunction with the PET scan. Glucose level: 87 mg/dL CTDI: 3.42 & 3.25 mGy DLP: 264.06 & 97.81 mGy-cm COMPARISON: CT neck 11/19/[address] body 11/21/2017. FINDINGS: PET: There is a very large hypermetabolic fungating mass extending along the lower nasopharynx left parame tom region but then involving the soft palate and region of the palatine tonsils, right greater than left and irregular extension into the right base of the tongue and extending into the right paraphar yngeal space. There is essentially obliterates the lower nasopharyngeal airway. The mass measures up to 6.6 cm wide, refer to PET image 36 and up to 5.6 cm craniocaudal on the sagittal reconstruction im ages. Max SUV 22.2. In addition, there is a 1.3 cm soft tissue nodularity in the right parapharyngeal space showing inten se uptake, max SUV 8.4. Large conglomerate soft tissue mass right level 2A measuring up to 4.0 cm, max SUV 11.0. A couple submandibular lymph nodes measure up to 1.7 cm, max SUV 7.1. Right-sided level 2/3 lymph node located deep to the sternocleidomastoid measures 1.9 cm, max SUV 8.4 . Right-sided level 4 lymph node measuring up to 1.7 cm, access to the 9.2. There is soft tissue thickening and increased signal along the patient's tracheostomy, max SUV 16.2, suspected to be postsurgical inflammation. Focal intense nodular uptake along the skin surface marginating the tracheostomy, axial image 59 and 61, measuring 7 mm on the right and 1.4 cm on the left shows intense uptake as well, max SUV 10.7 on the right and 9.0 on the left. Again, given cutaneous location marginating the tracheostomy, reactive inflammation is suspected. Focal borderline moderate increased uptake along the left side of the cricoid cartilage without CT co rrelate. Average liver SUV 1.9. There is focal moderate uptake at the patient's PEG tube site at the level of the anterior abdominal wall, max SUV 3.9 likely reactive inflammation. There is focal intense uptake at the anus, max SUV without any clear CT correlate. Otherwise, physiologic FDG uptake within the abdomen and pelvis. Scattered mild to borderline moderate uptake within the spine especially the mid thoracic vertebra an d lower lumbar vertebra, max SUV 3.3 [address] degenerative. ATTENUATION CORRECTION CT: Heart normal size without pericardial effusion. Coronary vessel calcifications are present. No thora cic lymphadenopathy by CT size criteria. Tracheostomy tube is present. Biapical pleural-parenchymal scarring with mild diffuse bronchial wall thickening and mild centrilobular emphysema. No consolidati on or pleural effusion. No suspicious pulmonary nodules. No dilated small bowel, free fluid, or free air. No mesenteric or retroperitoneal lymphadenopathy. No rmal appendix. No significant stool burden. No pericolonic inflammatory change. Circumferential bladder wall thickening. Vas deferens calcifications can be seen with diabetes. No ab normal fluid collection the pelvis or pelvic lymphadenopathy. Bones: Degenerative changes throughout the spine. Osseous process. Accentuated upper thoracic kyphosi s. IMPRESSION: 1. Intensely hypermetabolic fungating mass extending along (and obliterating) the lower nasopharynx, extending to involve the soft palate, down along the palatine tonsils, and the right base of the tong ue. The mass crosses the midline but has asymmetrically greater involvement towards the right with ov erall size measuring up to 6.6 x 5.6 cm. 2. Right-sided metastatic cervical lymphadenopathy including levels station 1B, 2A (largest conglomer ate mass measuring up to 4.0 cm), station 2/3, and station 4. Additional metastatic focus to the righ t parapharyngeal space. 3. There is intense metabolic uptake with soft tissue thickening along the patient's tracheostomy and additional nodular thickened areas (measuring up to 1.4 cm) involving the skin surface on either soraya e of the tracheostomy. This is suspected to be secondary to postsurgical inflammation rather than goyo plasm. Similarly, focal uptake at the patient's PEG site is also felt to be reactive to the procedure . 4. Otherwise, no evidence for metastatic disease in the chest, abdomen, or pelvis. Specifically, no h ypermetabolism at the posteromedial right liver lobe lesion seen on 11/21/2017. This finding may repr esent a flash filling hemangioma or area of vascular shunting. 5. Incidental: COPD with mild emphysema and circumferential bladder wall thickening that could be sec ondary to cystitis or chronic bladder wall hypertrophy.
== END | disposition home or self-care (01) ==
LOC: RADPETMAIN 11:20
PROVIDERS: ATTEND Internal Medicine Hematology & Oncology
DX: C13.2 Malignant neoplasm of posterior wall of hypopharynx (principal); R59.0 Localized enlarged lymph nodes; R93.89 Abnormal findings on diagnostic imaging of other specified body structures; Z98.890 Other specified postprocedural states
CPT/HCPCS: 78815; A9552

== ENCOUNTER → 2018-02-09 | Outpatient (CLI) | payer OTHER ==
--- NOTE | 2018-02-11 10:11 | PE ---
EXAMINATION TYPE: PET CT fusion skull to thigh DATE OF EXAM: 02/09/2018 COMPARISON: CT soft tissue neck 11/19/2017 Prior PET/CT: 12/01/2017 HISTORY: Squamous cell carcinoma head and neck TECHNIQUE: Following the intravenous administration of 9.03 mCi of F-18 FDG, whole body images are p erformed from the skull base to the midthigh. Images are reviewed on the computer in the coronal, ax ial, and sagittal planes. Reconstructed rotating images are created on independent workstation and r eviewed on the computer. A localization and attenuation correction CT is performed in conjunction w ith the PET scan. DLP: 99.42 and 263.85 mGycm SCAN: Subsequent Blood glucose: 74 mg/dL Average Mediastinum SUV: 1.5 Average Liver SUV: 2.21 FINDINGS: NECK: Tracheostomy tube is evident. There is a large soft tissue mass extending from the skull base to the posterior nasal pharynx extend ing into the posterior oral and hypopharynx. This has marked increased radiotracer within the range o f 10-12. There is extension posteriorly laterally into the neck greater on the right side. A small fo cus of the left jugulodigastric region is likely a metastatic node. Example image 24, SUV of 6.2. The re may be some extension into the posterior right maxillary sinus, SUV 3.3. There is a right submandibular lymph node with SUV of 3.75 suspicious for metastatic lesion. PET imag e 35 there is a focus of radiotracer accumulation within the posterior larynx on the left. PET image 35, SUV 4.0. There is a focus of radiotracer accumulation within the right supraclavicular region wit h an SUV value of 3.09 suspicious for metastatic lesion. PET image 33. There is some intense uptake in the right neck lateral to the thyroid, PET image 41. This has an SUV value of 4.2 and is suspicious for metastatic lymph node. THORAX: There is some mild increased uptake within the left posterior hilar region, patent image 67 w ith an SUV value of 2.23. This is nonspecific. Early metastasis is not excluded. This is a new findin g. ABDOMEN: Liver appears heterogenous. Suspicious uptake within the abdomen. There is some inflammatory change of the PEG tube insertion site. PELVIS: There may be some focal uptake within the L5 anterior right portion of the vertebral body. OSSEOUS STRUCTURES: There is some mild uptake within the mid to upper thoracic vertebral body, at therese ge 59, this appears to be approximately T5. Metastatic lesion is not excluded. Some increase uptake m ay be within the body of T8 as well. SUV value 2.13, PET image 79. LOCALIZATION CT: Thyroid is slightly prominent. Soft tissue mass in the posterior nasopharynx hypopha rynx is again evident. Soft tissue extension posterior lateral right neck is evident. There are enlar ged lymph nodes bilaterally corresponding to the areas of radiotracer uptake. Right submandibular butch nopathy appears more extensive than PET scan images. Small left submandibular lymph nodes are present . Right supraclavicular lymphadenopathy is again evident. The ascending thoracic aorta at the level t he main pulmonary artery is 3.4 cm. The main pulmonary artery the bifurcation is 2.3 cm. Some prostat e prominence is present. This appears to have posterior impression on the urinary bladder with calcif ication of the seminal vesicles. COMPARISON: The left parotid region lymph node appears to be increasing in size and radiotracer uptak e from comparison. Previous sites of radiotracer accumulation within the neck appears stable. Inflamm atory change around the tracheostomy tube has diminished over the interval. The left hilar uptake is new. Heterogeneity within the liver is increased over the interval. Radiotracer within the spine disc ussed above appears unchanged. IMPRESSION: 1. Extensive radiotracer accumulation within the posterior nasopharynx into the hypopharynx. There ar e multiple previously identified lymph nodes in the right neck, right submandibular region and right supraclavicular region compatible with the patient's reported neoplasm with metastatic lesions. 2. A left jugulodigastric lymph node has increased in size and radiotracer from previous examination. 3. There is some new intermediate signal in the posterior left hilar region.
== END | disposition home or self-care (01) ==
LOC: RADPETMAIN 12:22
PROVIDERS: ATTEND Radiology Radiation Oncology
DX: C44.42 Squamous cell carcinoma of skin of scalp and neck (principal); Z87.891 Personal history of nicotine dependence; R59.0 Localized enlarged lymph nodes
CPT/HCPCS: 78815; A9552

== ENCOUNTER 2018-02-20 12:57 | Observation (INO) | payer OTHER ==
--- NOTE | 2018-02-20 14:36 | ED ---
Recheck HPI - General Chief Complaint: Recheck/Abnormal Lab/Rx Stated Complaint: bleeding from trach Time Seen by Provider: 02/20/18 14:23 Source: family, RN notes reviewed, old records reviewed Mode of arrival: ambulatory Limitations: no limitations - History of Present Illness Initial Comments: This is a 63-year-old male the ER for evaluation, patient resents ER for evaluation. Tracheostomy recheck, patient states history gastric is not been working for the last 2 weeks especially the last week he has lost ability to talk having constant mucus feeling his trach, inability to breathe or sleep, difficulty with eating. Denies fevers. Has no specific pain. Patient very emotional, and anxious currently. MD Complaint: wound re-check (Tracheostomy recheck) -: week(s) Returns Today for: wound recheck Symptoms Since Prior Visit: no new symptoms Context: planned re-check Associated Symptoms: none Treatments Prior to Arrival: other - Related Data Home Medications Medication Instructions Recorded Confirmed HYDROcodone/APAP 5-325MG [[place] 1 - 2 tab PO Q4H PRN 02/20/18 02/20/18 5-325] Hyoscyamine Sulfate [Levsin-Sl] 0.125 mg SUBLINGUAL Q4H 02/20/18 02/20/18 Mag Hydrox/Al Hydrox/Simeth 30 ml PO Q4H PRN 02/20/18 02/20/18 [Maalox] Ranitidine HCl [Zantac] 150 mg PO DAILY 02/20/18 02/20/18 Sennosides [Senna] 8.6 mg PO HS 02/20/18 02/20/18 fentaNYL 25MCG/HR PATCH [Duragesic 1 patch TRANSDERM Q72H 02/20/18 02/20/18 25MCG/HR] Previous Rx's Medication Instructions Recorded Loratadine [Claritin] 10 mg PO DAILY PRN #30 tab 11/20/17 Ondansetron HCl [Zofran] 4 mg PO Q6HR PRN #20 tablet 11/26/17 Allergies Allergy/AdvReac Type Severity Reaction Status Date / Time No Known Allergies Allergy Verified 02/20/18 14:22 Review of Systems ROS Statement: Those systems with pertinent positive or pertinent negative responses have been documented in the HPI. ROS Other: All systems not noted in ROS Statement are negative. Past Medical History Past Medical History: No Reported History Additional Past Medical History / Comment(s): throat cancer History of Any Multi-Drug Resistant Organisms: None Reported Past Surgical History: No Surgical Hx Reported Past Anesthesia/Blood Transfusion Reactions: No Reported Reaction Past Psychological History: Anxiety Smoking Status: Former smoker Past Alcohol Use History: None Reported Past Drug Use History: None Reported - Past Family History Father Family Medical History: Cancer Additional Family Medical History / Comment(s): prostate cancer that spread to the brain Mother Family Medical History: Cancer Additional Family Medical History / Comment(s): ovarian cancer Sister(s) Family Medical History: Cancer Additional Family Medical History / Comment(s): breast cancer General Exam - General Exam Comments Initial Comments: Stridor is Limitations: no limitations General appearance: alert, in no apparent distress Head exam: Present: atraumatic, normocephalic, normal inspection Eye exam: Present: normal appearance, PERRL, EOMI. Absent: scleral icterus, conjunctival injection, periorbital swelling ENT exam: Present: normal exam, mucous membranes moist Neck exam: Present: normal inspection. Absent: tenderness, meningismus, lymphadenopathy Respiratory exam: Present: normal lung sounds bilaterally. Absent: respiratory distress, wheezes, rales, rhonchi, stridor Cardiovascular Exam: Present: regular rate, normal rhythm, normal heart sounds. Absent: systolic murmur, diastolic murmur, rubs, gallop, clicks GI/Abdominal exam: Present: soft, normal bowel sounds. Absent: distended, tenderness, guarding, rebound, rigid Extremities exam: Present: normal inspection, full ROM, normal capillary refill. Absent: tenderness, pedal edema, joint swelling, calf tenderness Back exam: Present: normal inspection Neurological exam: Present: alert, oriented X3, CN II-XII intact Psychiatric exam: Present: normal affect, normal mood Skin exam: Present: warm, dry, intact, normal color. Absent: rash Course Vital Signs 02/20/18 13:20 Temperature 98 F Pulse Rate 86 Respiratory 20 Rate Blood Pressure 119/76 O2 Sat by Pulse 99 Oximetry - Reevaluation(s) Reevaluation #1: 02/20/18 18:02 Records reviewed Reevaluation #2: 02/20/18 18:[address] Valles regarding patient, advised is CAT scan soft tissue neck as well as chest Reevaluation #3: 02/20/18 18:03 Spoke with patient and at length regarding findings, they're aware, family various that it frequency of which he takes to clean the trach as well as patient's shortness of breath and inability to get rest as well as inability to eat, they're uneasy about prognosis, Priyanka comfortable being discharged - Consultations Consultation #1: Spoke with Dr. Kaufman, except for admission Medical Decision Making - Medical Decision Making 63 male the ER for evaluation, patient feels that is tracheostomy is malfunction , we did do a CAT scan here today which is negative, patient is to be admitted for both continued ENT consult as well as oncology consult - Lab Data Result diagrams: 02/20/18 15:36 02/20/18 15:36 Lab Results 02/20/18 02/20/18 02/20/18 Range/Units 15:36 15:36 15:36 WBC 11.6 H (3.8-10.6) k/uL RBC 4.64 (4.30-5.90) m/uL Hgb 13.8 (13.0-17.5) gm/dL Hct 42.5 (39.0-53.0) % MCV 91.6 (80.0-100.0) fL MCH 29.7 (25.0-35.0) pg MCHC 32.4 (31.0-37.0) g/dL RDW 13.6 (11.5-15.5) % Plt Count 407 (150-450) k/uL Neutrophils % 75 % Lymphocytes % 12 % Monocytes % 7 % Eosinophils % 3 % Basophils % 1 % Neutrophils # 8.7 H (1.3-7.7) k/uL Lymphocytes # 1.4 (1.0-4.8) k/uL Monocytes # 0.8 (0-1.0) k/uL Eosinophils # 0.4 (0-0.7) k/uL Basophils # 0.1 (0-0.2) k/uL Sodium 139 (137-145) mmol/L Potassium 4.3 (3.5-5.1) mmol/L Chloride 101 (98-107) mmol/L Carbon Dioxide 30 (22-30) mmol/L Anion Gap 8 mmol/L BUN 14 (9-20) mg/dL Creatinine 0.55 L (0.66-1.25) mg/dL Est GFR (CKD-EPI)AfAm >90 (>60 ml/min/1.73 sqM) Est GFR (CKD-EPI)NonAf >90 (>60 ml/min/1.73 sqM) Glucose 95 (74-99) mg/dL Calcium 9.7 (8.4-10.2) mg/dL Phosphorus 4.7 H (2.5-4.5) mg/dL Magnesium 1.9 (1.6-2.3) mg/dL Total Bilirubin 0.6 (0.2-1.3) mg/dL AST 27 (17-59) U/L ALT 37 (21-72) U/L Alkaline Phosphatase 131 H (38-126) U/L Total Creatine Kinase 21 L (55-170) U/L CK-MB (CK-2) 0.5 (0.0-2.4) ng/mL CK-MB (CK-2) Rel Index 2.4 Total Protein 6.7 (6.3-8.2) g/dL Albumin 3.6 (3.5-5.0) g/dL Disposition Clinical Impression: Pharyngeal mass, Chronic stridor, Dysphagia Disposition: ADMITTED IP TO THIS HOSP Condition: Fair Is patient prescribed a controlled substance at d/c from ED?: No Referrals: Iván Barron MD [STAFF PHYSICIAN] - 1-2 days
--- NOTE | 2018-02-20 14:46 | XR ---
EXAMINATION TYPE: XR chest 1V portable DATE OF EXAM: 02/20/2018 COMPARISON: Chest x-ray November 23, 2017. Most recent PET/CT February 09, 2018 HISTORY: Chest pain per order. Bleeding from trach per patient. History of metastatic throat cancer. TECHNIQUE: Single frontal view of the chest is obtained. FINDINGS: There is background chronic emphysematous change without suspicious focal air space opacit y, pleural effusion, or pneumothorax seen. Tracheostomy tube is redemonstrated. Interval resolution of pneumomediastinum noted. The cardiac silhouette size remains within normal limits. The osseous s tructures remain somewhat demineralized. IMPRESSION: Chronic emphysematous change without acute pulmonary process.
[2018-02-20] MEDS ORDERED: SODIUM CHLORIDE 0.9% 1,000 ML IV STA (15:18)
[2018-02-20] MEDS ORDERED: RX INFO: IV CONTRAST WAS GIVEN 1 EACH MISC MISCELLANE PRN (15:18)
[2018-02-20 16:16] LABS: Basophils # (A) 0.1 k/uL (0-0.2); Basophils % (A) 1 %; Eosinophils # (A) 0.4 k/uL (0-0.7); Eosinophils % (A) 3 %; HCT 42.5 % (39.0-53.0); HGB 13.8 gm/dL (13.0-17.5); Lymphocytes # (A) 1.4 k/uL (1.0-4.8); Lymphocytes % (A) 12 %; MCH 29.7 pg (25.0-35.0); MCHC 32.4 g/dL (31.0-37.0); MCV 91.6 fL (80.0-100.0); Mean Platelet Volume 7.1; Monocytes # (A) 0.8 k/uL (0-1.0); Monocytes % (A) 7 %; Neutrophils # (A) 8.7 k/uL (1.3-7.7); Neutrophils % (A) 75 %; Platelet Count 407 k/uL (150-450); RBC 4.64 m/uL (4.30-5.90); RDW 13.6 % (11.5-15.5); WBC 11.6 k/uL (3.8-10.6)
[2018-02-20 16:41] LABS: ALT 37 U/L (21-72); AST 27 U/L (17-59); Albumin 3.6 g/dL (3.5-5.0); Alkaline Phosphatase 131 U/L (38-126); Anion Gap 8 mmol/L; Blood Urea Nitrogen 14 mg/dL (9-20); Calcium 9.7 mg/dL (8.4-10.2); Carbon Dioxide 30 mmol/L (22-30); Chloride 101 mmol/L (98-107); Glucose 95 mg/dL (74-99); Magnesium 1.9 mg/dL (1.6-2.3); Phosphorus 4.7 mg/dL (2.5-4.5); Potassium 4.3 mmol/L (3.5-5.1); Sodium 139 mmol/L (137-145); Total Bilirubin 0.6 mg/dL (0.2-1.3); Total Protein 6.7 g/dL (6.3-8.2)
--- NOTE | 2018-02-20 16:48 | CT ---
EXAMINATION TYPE: CT neck chest w con DATE OF EXAM: 02/20/2018 COMPARISON: CT chest abdomen and pelvis November 21, 2017. PET/CT February 09, 2018. HISTORY: Patient pulled on trach today and is having bleeding from trach. Known metastatic throat can cer. CT DLP: 495.6 mGycm. Automated Exposure Control for Dose Reduction was Utilized. TECHNIQUE: CT scan of the neck and thorax are performed following with IV Contrast, patient injected with 100 mL of Isovue 300. FINDINGS: NECK: Extensive tumor filling nasopharyngeal and oropharyngeal airway is redemonstrated with metastat ic neck adenopathy bilaterally again seen. Below this tracheostomy tube is satisfactory and stable in position just below the vocal cords. There is mass effect on the internal carotid arteries due to la rge tumor burden but patency is seen near [place]. LUNGS: Mild emphysematous change in the upper lungs is redemonstrated with scattered bleb formation a nd reticulation. There is new reticulation in the lower lungs. There is new patchy groundglass opacit y in the left lower lobe axial image 39. No pleural effusion or pneumothorax is identified bilaterall y. Additional foci of groundglass opacity are developing in the inferior right upper lobe as well as portions of right middle and lower lobes. No suspicious new nodules or masses are identified MEDIASTINUM: There are no greater than 1 cm hilar or mediastinal lymph nodes. No LAD distribution i s present cardiomegaly or pericardial effusion is seen. Moderate coronary artery calcification is pre sent. OTHER: Multilevel spurring in the spine is redemonstrated. Percutaneous gastrostomy tube is stable a nd satisfactory in position. Excretion in kidneys is noted. IMPRESSION: No suspicious new finding seen to account for tracheostomy bleeding. Known diffuse metast atic throat cancer redemonstrated without significant interval change. Developing multifocal alveolar opacities could reflect edema, hemorrhage, or infiltrates.
[2018-02-20 16:51] LABS: Creatine Kinase MB 0.5 ng/mL (0.0-2.4)
[2018-02-20] MEDS ORDERED: methylPREDNISolone SOD SUCCI 125 MG/2 ML VIAL IV STA (17:53)
[2018-02-20] MEDS: methylPREDNISolone SOD SUCCI 125 MG/2 ML VIAL IV SCH (19:19)
[2018-02-20] MEDS: IPRATROPIUM-ALBUTEROL 3 ML NEB INHALATION SCH (19:48)
[2018-02-20 20:51] LABS: Glucose,Whole Blood 145 mg/dL (75-99)
[2018-02-20] MEDS ORDERED: MAG HYDROX/AL HYDROX/SIMETH 30 ML CUP PO PRN (21:06)
[2018-02-20] MEDS: HYOSCYAMINE ORAL DROPS 1.875 MG/15 ML BOTTLE SUBLINGUAL SCH (21:45)
[2018-02-20] MEDS: SENNOSIDES 8.6 MG TAB PO SCH (21:45)
[2018-02-20] MEDS: ONDANSETRON 4 MG TAB PO PRN (21:45)
[2018-02-20] MEDS: HYDROcodone/APAP 5-325MG 1 EACH TAB PO PRN (21:47)
[2018-02-20] MEDS: SODIUM CHLORIDE 0.9% 1,000 ML IV SCH (22:07)
--- NOTE | 2018-02-20 23:44 | P.CNPUL ---
History of Present Illness Consult date: 02/20/18 Reason for consult: dyspnea, cough, COPD Chief complaint: Increased shortness of breath and excessive mucus production History of present illness: 63-year-old male has limited capacity to express himself due to tracheostomy, patient has a history of throat cancer, he is status post tracheostomy for the last 1 week having excessive amount of respiratory secretions thick tenacious came into the hospital for further evaluation has been admitted into the hospital for trach care, tracheostomy appears to be working fairly well, his admitted chest x-ray is suggestive of COPD-like finding no active infiltrates have been noted, the computed tomography scan of the neck and chest revealed extensive tumor filling the nasopharyngeal and oropharyngeal airway with metastatic cervical lymphadenopathy bilaterally, the tracheostomy is in a stable position below the cords, extensive tumor extension around internal carotid and [place] noted, the lung windows reveal emphysematous changes with blebs formation, patchy infiltrate in the left lower lobe cannot be excluded, some infiltrate patchy interstitial with a groundglass attenuation in the right upper lobe and right midlung field area, no nodule or mass noted, oxygenation is stable on the trach collar as well as on room air in mid 90s, white cell count is 11,000, patient did receive a dose of IV steroid which was helpful would benefit from the broad-spectrum antibiotics as well Review of Systems All systems: negative Past Medical History Past Medical History: No Reported History Additional Past Medical History / Comment(s): throat cancer History of Any Multi-Drug Resistant Organisms: None Reported Past Surgical History: No Surgical Hx Reported Past Anesthesia/Blood Transfusion Reactions: No Reported Reaction Past Psychological History: Anxiety Smoking Status: Former smoker Past Alcohol Use History: None Reported Additional Past Alcohol Use History / Comment(s): Used to drink quite a bit of beer, quit several years ago Past Drug Use History: None Reported - Past Family History Father Family Medical History: Cancer Additional Family Medical History / Comment(s): prostate cancer that spread to the brain Mother Family Medical History: Cancer Additional Family Medical History / Comment(s): ovarian cancer Sister(s) Family Medical History: Cancer Additional Family Medical History / Comment(s): breast cancer Medications and Allergies Home Medications Medication Instructions Recorded Confirmed Type Loratadine [Claritin] 10 mg PO DAILY PRN #30 tab 11/20/17 02/20/18 Rx Ondansetron HCl [Zofran] 4 mg PO Q6HR PRN #20 tablet 11/26/17 02/20/18 Rx HYDROcodone/APAP 5-325MG [[place] 1 - 2 tab PO Q4H PRN 02/20/18 02/20/18 History 5-325] Hyoscyamine Sulfate [Levsin-Sl] 0.125 mg SUBLINGUAL Q4H 02/20/18 02/20/18 History Mag Hydrox/Al Hydrox/Simeth 30 ml PO Q4H PRN 02/20/18 02/20/18 History [Maalox] Ranitidine HCl [Zantac] 150 mg PO DAILY 02/20/18 02/20/18 History Sennosides [Senna] 8.6 mg PO HS 02/20/18 02/20/18 History fentaNYL 25MCG/HR PATCH [Durages[place] 1 patch TRANSDERM Q72H 02/20/18 02/20/18 History 25MCG/HR] Allergies Allergy/AdvReac Type Severity Reaction Status Date / Time No Known Allergies Allergy Verified 02/20/18 14:22 Physical Exam Vitals: Vital Signs Temp Pulse Pulse Resp BP BP Pulse Ox 02/20/18 23:00 96.8 F L 86 20 111/65 94 L 02/20/18 20:02 81 02/20/18 19:55 97.4 F L 85 17 113/76 96 02/20/18 19:49 81 02/20/18 18:17 81 18 107/77 94 L 02/20/18 13:20 98 F 86 20 119/76 99 Intake and Output 02/20/18 02/20/18 02/21/18 14:59 22:59 06:59 Other: Weight 70.307 kg 70.3 kg - Constitutional General appearance: average body habitus, cooperative, disheveled, mild distress - EENT Eyes: EOMI, PERRLA, poor dentition Ears: bilateral: normal - Neck Tracheostomy intact, Neck: normal ROM Thyroid: bilateral: normal size - Respiratory Respiratory: bilateral: diminished, rhonchi, wheezing - Cardiovascular Rhythm: regular Heart sounds: normal: S1, S2 - Gastrointestinal General gastrointestinal: normal bowel sounds, soft - Neurologic Neurologic: CNII-XII intact - Musculoskeletal Musculoskeletal: gait normal, generalized weakness, strength equal bilaterally - Psychiatric Psychiatric: A&O x's 3, appropriate affect, intact judgment & insight Results - Laboratory Findings CBC and BMP: 02/20/18 15:36 02/20/18 15:36 Abnormal lab findings: Abnormal Labs 02/20/18 02/20/18 02/20/18 15:36 15:36 15:36 WBC 11.6 H Neutrophils # 8.7 H Creatinine 0.55 L POC Glucose (mg/dL) Phosphorus 4.7 H Alkaline Phosphatase 131 H Total Creatine Kinase 21 L 02/20/18 20:41 WBC Neutrophils # Creatinine POC Glucose (mg/dL) 145 H Phosphorus Alkaline Phosphatase Total Creatine Kinase - Diagnostic Findings Chest x-ray: report reviewed, image reviewed CT scan - chest: report reviewed, image reviewed (Finding as noted above) Assessment and Plan Assessment: Acute purulent tracheobronchitis Acute COPD exacerbation Stance is stage IV throat cancer Tracheostomy appears to be intact with good air movement and flow and stable hemodynamics and saturation Plan: IV steroids Trach cares suctioning and cleaning Broad-spectrum antibiotics Other recommendations pending plan of care as per clinical response of the patient Time with Patient: Greater than 30
[2018-02-21] MEDS: HYOSCYAMINE ORAL DROPS 1.875 MG/15 ML BOTTLE SUBLINGUAL SCH ×6 (01:24→21:19)
[2018-02-21] MEDS: methylPREDNISolone SOD SUCCI 125 MG/2 ML VIAL IV SCH ×4 (01:24→17:44)
[2018-02-21] MEDS: SODIUM CHLORIDE 0.9% 1,000 ML IV SCH ×2 (05:55→12:52)
[2018-02-21] MEDS: HYDROcodone/APAP 5-325MG 1 EACH TAB PO PRN ×2 (05:58→20:00)
[2018-02-21] MEDS: ONDANSETRON 4 MG TAB PO PRN (05:58)
[2018-02-21] MEDS: IPRATROPIUM-ALBUTEROL 3 ML NEB INHALATION SCH ×4 (07:15→20:19)
--- NOTE | 2018-02-21 07:21 | P.PN ---
Subjective Progress Note Date: 02/21/18 Principal diagnosis: Acute COPD exacerbation, purulent tracheobronchitis, metastatic stage IV throat cancer, respiratory failure related to above and multifactorial process 02/21/2018, patient seen eval reexamined during the morning rounds clinically has been doing relatively better cough congestion shortness of breath is still there, patient is somewhat anxious has difficulty in expressing himself, patient feels that IV steroids have been helping, broad-spectrum antibiotics have been ordered, follow clinical course closely 63-year-old male has limited capacity to express himself due to tracheostomy, patient has a history of throat cancer, he is status post tracheostomy for the last 1 week having excessive amount of respiratory secretions thick tenacious came into the hospital for further evaluation has been admitted into the hospital for trach care, tracheostomy appears to be working fairly well, his admitted chest x-ray is suggestive of COPD-like finding no active infiltrates have been noted, the computed tomography scan of the neck and chest revealed extensive tumor filling the nasopharyngeal and oropharyngeal airway with metastatic cervical lymphadenopathy bilaterally, the tracheostomy is in a stable position below the cords, extensive tumor extension around internal carotid and [place] noted, the lung windows reveal emphysematous changes with blebs formation, patchy infiltrate in the left lower lobe cannot be excluded, some infiltrate patchy interstitial with a groundglass attenuation in the right upper lobe and right midlung field area, no nodule or mass noted, oxygenation is stable on the trach collar as well as on room air in mid 90s, white cell count is 11,000, patient did receive a dose of IV steroid which was helpful would benefit from the broad-spectrum antibiotics as well Objective - Vital Signs Vital signs: Vital Signs Temp 96.8 F L 02/20/18 23:00 Pulse 86 02/20/18 23:00 Resp 20 02/20/18 23:00 BP 111/65 02/20/18 23:00 Pulse Ox 94 L 02/20/18 23:00 Intake & Output 02/20/18 02/21/18 02/21/18 18:59 06:59 18:59 Weight 70.307 kg 70.3 kg Other: # Voids 2 - Exam Constitutional General appearance: average body habitus, cooperative, disheveled, mild distress - EENT Eyes: EOMI, PERRLA, poor dentition Ears: bilateral: normal - Neck Tracheostomy intact, Neck: normal ROM Thyroid: bilateral: normal size - Respiratory Respiratory: bilateral: diminished, rhonchi, wheezing - Cardiovascular Rhythm: regular Heart sounds: normal: S1, S2 - Gastrointestinal General gastrointestinal: normal bowel sounds, soft - Neurologic Neurologic: CNII-XII intact - Musculoskeletal Musculoskeletal: gait normal, generalized weakness, strength equal bilaterally - Psychiatric Psychiatric: A&O x's 3, appropriate affect, intact judgment & insight - Labs CBC & Chem 7: 02/20/18 15:36 02/20/18 15:36 Labs: Abnormal Lab Results - Last 24 Hours (Table) 02/20/18 02/20/18 02/20/18 Range/Units 15:36 15:36 15:36 WBC 11.6 H (3.8-10.6) k/uL Neutrophils # 8.7 H (1.3-7.7) k/uL Creatinine 0.55 L (0.66-1.25) mg/dL POC Glucose (mg/dL) (75-99) mg/dL Phosphorus 4.7 H (2.5-4.5) mg/dL Alkaline Phosphatase 131 H (38-126) U/L Total Creatine Kinase 21 L (55-170) U/L 02/20/18 Range/Units 20:41 WBC (3.8-10.6) k/uL Neutrophils # (1.3-7.7) k/uL Creatinine (0.66-1.25) mg/dL POC Glucose (mg/dL) 145 H (75-99) mg/dL Phosphorus (2.5-4.5) mg/dL Alkaline Phosphatase (38-126) U/L Total Creatine Kinase (55-170) U/L Assessment and Plan Assessment: Acute purulent tracheobronchitis Acute COPD exacerbation Stance is stage IV throat cancer Tracheostomy appears to be intact with good air movement and flow and stable hemodynamics and saturation Plan: IV steroids Trach cares suctioning and cleaning Broad-spectrum antibiotics Other recommendations pending plan of care as per clinical response of the patient Time with Patient: Greater than 30
[2018-02-21 07:37] LABS: Glucose,Whole Blood 163 mg/dL (75-99)
[2018-02-21] MEDS: ENOXAPARIN 40 MG/0.4 ML SYRINGE SQ SCH (08:20)
[2018-02-21] MEDS: LORazepam 1 MG TAB PO PRN ×2 (08:20→15:41)
[2018-02-21] MEDS: FAMOTIDINE 20 MG TAB PO SCH (08:20)
[2018-02-21] MEDS: INSULIN ASPART 100 UNIT/ML 1 ML 10 ML VIAL SQ SCH ×4 (08:20→20:50)
--- NOTE | 2018-02-21 08:58 | XR ---
EXAMINATION TYPE: XR chest 1V portable DATE OF EXAM: 02/21/2018 CLINICAL HISTORY: Difficulty breathing progress study. TECHNIQUE: Single AP portable upright view of the chest is obtained. COMPARISON: Chest x-ray and CT neck/chest from one day earlier FINDINGS: A tracheostomy tube is redemonstrated. Chronic emphysematous change with faint opacities i n the bases left greater than right is better appreciated on CT than plain film. No new suspicious fo emily airspace opacity, pleural effusion, or pneumothorax is evident. Cardiac silhouette size is stable and within normal limits. Multilevel spurring in the spine is redemonstrated. IMPRESSION: Patchy left greater than right bibasilar opacities seen better on CT than plain film. No new focal infiltrate is present.
[2018-02-21] MEDS ORDERED: LORATADINE 10 MG TAB PO PRN (09:00)
[2018-02-21] MEDS ORDERED: AZITHROMYCIN 500 MG TAB PO SCH (09:00)
[2018-02-21] MEDS: ONDANSETRON 4 MG/2 ML VIAL IVP PRN ×2 (11:49→20:00)
[2018-02-21 12:29] LABS: Glucose,Whole Blood 136 mg/dL (75-99)
[2018-02-21 14:03] LABS: Hemoglobin A1C 5.6 % (4.0-6.0)
--- NOTE | 2018-02-21 16:56 | P.GSCN ---
History of Present Illness Consult date: 02/21/18 Reason for Consult: Shortness of breath Requesting physician: Raphael Kaufman History of present illness: This is a 63-year-old white male with a unresectable oral pharyngeal mass currently in hospice. He presented to the emergency room last night and the emergency room physician performed a CAT scan. Patient has a trach tube in place. I've been asked to consult regarding the shortness of breath. Review of Systems - Constitutional Reports anorexia, Reports weakness, Denies chronic headaches - EENT Ears, nose, mouth and throat: Reports headache, Reports mouth pain - Cardiovascular Denies claudication - Respiratory Reports cough with sputum - Gastrointestinal Denies belching - Genitourinary Denies discharge - Musculoskeletal Denies gait dysfunction - Integumentary Denies change in hair/nails - Neurological Denies balance difficulties - Psychiatric Denies anxiety attacks - Endocrine Denies excessive thirst - Hematologic/Lymphatic Denies easy bleeding - Allergic/Immunologic Denies allergic rhinitis Past Medical History Past Medical History: No Reported History Additional Past Medical History / Comment(s): throat cancer History of Any Multi-Drug Resistant Organisms: None Reported Past Surgical History: No Surgical Hx Reported Past Anesthesia/Blood Transfusion Reactions: No Reported Reaction Past Psychological History: Anxiety Smoking Status: Former smoker Past Alcohol Use History: None Reported Additional Past Alcohol Use History / Comment(s): Used to drink quite a bit of beer, quit several years ago Past Drug Use History: None Reported - Past Family History Father Family Medical History: Cancer Additional Family Medical History / Comment(s): prostate cancer that spread to the brain Mother Family Medical History: Cancer Additional Family Medical History / Comment(s): ovarian cancer Sister(s) Family Medical History: Cancer Additional Family Medical History / Comment(s): breast cancer Medications and Allergies Home Medications Medication Instructions Recorded Confirmed Type Loratadine [Claritin] 10 mg PO DAILY PRN #30 tab 11/20/17 02/20/18 Rx Ondansetron HCl [Zofran] 4 mg PO Q6HR PRN #20 tablet 11/26/17 02/20/18 Rx HYDROcodone/APAP 5-325MG [[place] 1 - 2 tab PO Q4H PRN 02/20/18 02/20/18 History 5-325] Hyoscyamine Sulfate [Levsin-Sl] 0.125 mg SUBLINGUAL Q4H 02/20/18 02/20/18 History Mag Hydrox/Al Hydrox/Simeth 30 ml PO Q4H PRN 02/20/18 02/20/18 History [Maalox] Ranitidine HCl [Zantac] 150 mg PO DAILY 02/20/18 02/20/18 History Sennosides [Senna] 8.6 mg PO HS 02/20/18 02/20/18 History fentaNYL 25MCG/HR PATCH [Duragesic 1 patch TRANSDERM Q72H 02/20/18 02/20/18 History 25MCG/HR] Allergies Allergy/AdvReac Type Severity Reaction Status Date / Time No Known Allergies Allergy Verified 02/20/18 14:22 Surgical - Exam Osteopathic Statement: *. No significant issues noted on an osteopathic structural exam other than those noted in the History and Physical/Consult. Vital Signs Temp Pulse Resp BP Pulse Ox 98 F 86 20 119/76 99 02/20/18 13:20 02/20/18 13:20 02/20/18 13:20 02/20/18 13:20 02/20/18 13:20 Head is normocephalic the face is symmetric there's no abnormal movements is no tenderness to the sinuses are mastoids is no nodules ruptured and parasites on scalp. Auricles are well-formed canals are clear. Nose is patent. Mouth and throat large oral pharyngeal mass noted. Neck shows cervical lymphadenopathy and a obstructed trach tube in place that trach tube is in #8 nonfenestrated trach tube that is filled with crusting and scabbing. - Eyes PERRL - ENT normal pinna - Respiratory normal expansion - Abdomen Abdomen: soft - Integumentary no rash - Neurologic normal sensation - Musculoskeletal normal gait, normal posture - Psychiatric oriented to time, oriented to person, oriented to place, memory intact Results - Labs 02/20/18 15:36 02/20/18 15:36 Abnormal Lab Results - Last 24 Hours (Table) 02/20/18 02/21/18 02/21/18 Range/Units 20:41 07:34 12:27 POC Glucose (mg/dL) 145 H 163 H 136 H (75-99) mg/dL Diabetes panel 02/20/18 Range/Units 21:05 Hemoglobin A1c 5.6 (4.0-6.0) % Assessment and Plan Assessment: Throat cancer (1) Shortness of breath Current Visit: Yes Status: Acute Code(s): R06.02 - SHORTNESS OF BREATH SNOMED Code(s): 322187323 (2) Tracheostomy malfunction Current Visit: Yes Status: Acute Code(s): J95.03 - MALFUNCTION OF TRACHEOSTOMY STOMA SNOMED Code(s): 004740687 Plan: This patient's shortness of breath is secondary to an obstructed trach tube. I changed the trach tube to a #8 Silver Ajit tube. Patient had immediate relief of his shortness of breath. Trach care was recommended through the respiratory therapist. Patient will follow up with me on an as-needed basis.
[2018-02-21 17:09] LABS: Glucose,Whole Blood 168 mg/dL (75-99)
--- NOTE | 2018-02-21 17:40 | HP ---
HISTORY AND PHYSICAL CHIEF COMPLAINT: A 63-year-old white male with tracheostomy with obstruction of tracheostomy on high dose because he could not breathe. He actually could not breathe. He just had a trach replaced with a metal trach today. He is breathing much better. He is having severe runny nose, nose plugging. Chest x-ray shows COPD. No active infiltrates. CT showed extensive tumor filling the nasopharyngeal and oropharyngeal airway with metastatic cervical lymphadenopathy. He is going to been taken off the hospice. He is supposed to be getting chemotherapy on discharge. His emphysema with blebs. Patchy infiltrate in the lower lobes. He is on antibiotics at this time. REVIEW OF SYSTEMS: Fourteen point review of systems negative except for mentioned. PAST MEDICAL HISTORY: Throat cancer, anxiety. SOCIAL HISTORY: Former smoker. He used to drink bear a lot. Quit several years ago. FAMILY HISTORY: Father with prostate cancer. Mother with cancer ovarian, sister cancer of the breast. HOME MEDICINES: 1. Fentanyl patch. 2. Senna. 3. Zantac. 4. Levsin. 5. Gates. 6. Zofran. 7. Claritin. 8. High dose anxiety medicines. ALLERGIES: No known drug allergies. PHYSICAL EXAM: VITAL SIGNS: O2 sats 94 to 99% on 2 L. Blood pressure is 107-119 over 70s. Pulse is 80s, temp 98, weight is 70 kg, average body habitus. HEENT pupils equal, round, reactive to light and accommodation. NECK: Trachea is intact. Cardiovascular: S1-S2. GI: Soft. NEUROLOGIC: Cranial nerves are intact. PSYCH: Fair mood and affect. LABORATORY DATA: White count 11.6, hemoglobin is 13.8. CT scan of the chest as mentioned above. ASSESSMENT: 1. Purulent tracheobronchitis. 2. Chronic obstructive pulmonary disease exacerbation. 3. Stage IV throat cancer. 4. Tracheostomy. PLAN: Steroids IV, broad-spectrum antibiotics, await for Pulmonary to clear from discharge from pulmonary standpoint prior to going home. MMODL / IJN: [id number] /
--- NOTE | 2018-02-21 17:49 | P.CONS ---
History of Present Illness - Reason for Consult Consult date: 02/21/18 head/neck malignancy Requesting physician: Curtis Johnson - Chief Complaint aspiration, trach tube malfunction - History of Present Illness Mr. Dotson is a pleasant male pt of Dr. Barron who was initially seen in consult at [facility] 11/19/17. He presented with 1 month of progressive swelling in the right neck, associated with changes in speech, feeling of nasal congestion, audible changes in breath sounds and difficulty swallowing. The mass was hard but not painful. CT neck showed a 4 by 3 cm mass involving the right tonsil extending inferiorly into the hypopharynx on the right, downward extension measuring approximately 6 cm, mass crossed the midline. Tumor was also felt to involve anterior triangle right-sided cervical lymph nodes. CT CAP was negative other than a 1.5 x 2 cm focus in the liver, which was felt to be indeterminate. Patient was seen by various specialties, including ENT, gastroenterology, and pulmonary medicine. He was felt to be in danger of imminent airway compromise and underwent tracheostomy. As he was having significant difficulty in swallowing already, he also had an EGD with PEG placement. He had biopsies on 11/22/17, from the pharyngeal mass, as well as FNA of one of the right-sided neck nodes. 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 The mass measured 6.6 cm by 5.6 cm. 1.3 cm nodularity in the right parapharyngeal space was noted showing intense uptake with SUV of 8.4, while SUV in the mass was 22.2. There was large , dominant soft tissue mass in the right level IIA measuring 4 cm with max SUV 11. A couple of submandibular nodes were involved measuring 1.7 cm with SUV of 7.1 There was evidence of right cervical lymph node involvement, with level 2/3 lymph nodes measuring 1.9 cm, SUV 8.4, level IV lymph node measuring 1.7 cm, SUV 9.2. There was no evidence of distant metastatic disease. Plan was for neoadjuvant chemo/XRT with curative intent. He was seen for his first office visit on 12/04/17. He was referred to Rad Onc. After their evaluation of his PET, it was felt that he would benefit from induction chemo then concurrent treatment. Pt was unable to psychologically manage his diagnosis initially so, he opted out of treatment for hosipce. Pt closed his case with hospice and is seeking active treatment at this time. Pt is admitted for aspiration pneumonia, his states he has had trouble since the length of his trach tube was shortened. Pt has not had fevers, mass is bigger, still not painful. No other c/o on a 14 point ROS. Review of Systems 14 point ROS is negative except as stated HPI Past Medical History Past Medical History: No Reported History Additional Past Medical History / Comment(s): throat cancer History of Any Multi-Drug Resistant Organisms: None Reported Past Surgical History: No Surgical Hx Reported Past Anesthesia/Blood Transfusion Reactions: No Reported Reaction Past Psychological History: Anxiety Smoking Status: Former smoker Past Alcohol Use History: None Reported Additional Past Alcohol Use History / Comment(s): Used to drink quite a bit of beer, quit several years ago Past Drug Use History: None Reported - Past Family History Father Family Medical History: Cancer Additional Family Medical History / Comment(s): prostate cancer that spread to the brain Mother Family Medical History: Cancer Additional Family Medical History / Comment(s): ovarian cancer Sister(s) Family Medical History: Cancer Additional Family Medical History / Comment(s): breast cancer Medications and Allergies Home Medications Medication Instructions Recorded Confirmed Type Loratadine [Claritin] 10 mg PO DAILY PRN #30 tab 11/20/17 02/20/18 Rx Ondansetron HCl [Zofran] 4 mg PO Q6HR PRN #20 tablet 11/26/17 02/20/18 Rx HYDROcodone/APAP 5-325MG [[place] 1 - 2 tab PO Q4H PRN 02/20/18 02/20/18 History 5-325] Hyoscyamine Sulfate [Levsin-Sl] 0.125 mg SUBLINGUAL Q4H 02/20/18 02/20/18 History Mag Hydrox/Al Hydrox/Simeth 30 ml PO Q4H PRN 02/20/18 02/20/18 History [Maalox] Ranitidine HCl [Zantac] 150 mg PO DAILY 02/20/18 02/20/18 History Sennosides [Senna] 8.6 mg PO HS 02/20/18 02/20/18 History fentaNYL 25MCG/HR PATCH [[place] 1 patch TRANSDERM Q72H 02/20/18 02/20/18 History 25MCG/HR] Allergies Allergy/AdvReac Type Severity Reaction Status Date / Time No Known Allergies Allergy Verified 02/20/18 14:22 Physical Exam Vitals: Vital Signs Temp Pulse Pulse Resp BP BP Pulse Ox 02/21/18 07:00 97.5 F L 119 H 18 131/78 100 02/20/18 23:00 96.8 F L 86 20 111/65 94 L 02/20/18 20:02 81 02/20/18 19:55 97.4 F L 85 17 113/76 96 02/20/18 19:49 81 02/20/18 18:17 81 18 107/77 94 L Intake and Output 02/20/18 02/21/18 02/21/18 22:59 06:59 14:59 Intake Total 1200 Balance 1200 Intake: Tube Feeding 1200 Other: # Voids 2 Weight 70.3 kg 70.3 kg - Constitutional General appearance: average body habitus, cooperative, no acute distress - EENT 3-4 cm mass on the right neck, anterior supraclavicular adenpathy, 1 area of adenopathy on the left Eyes: anicteric sclerae, EOMI - Neck Neck: lymphadenopathy - Respiratory Respiratory: bilateral: CTA - Cardiovascular Heart sounds: normal: S1, S2 leg Peripheral Edema: bilateral: Trace - Gastrointestinal General gastrointestinal: no absent bowel sounds, no decreased bowel sounds, no distended, no hepatomegaly, no hyperactive bowel sounds, normal bowel sounds, no organomegaly, no rigid, no scaphoid, soft, no splenomegaly, no tenderness, no umbilical hernia, no ventral hernia - Integumentary Integumentary: normal - Neurologic Neurologic: CNII-XII intact - Musculoskeletal Musculoskeletal: strength equal bilaterally - Psychiatric Psychiatric: A&O x's 3, appropriate affect, intact judgment & insight Results CBC & Chem 7: 02/20/18 15:36 02/20/18 15:36 Labs: Abnormal Lab Results - Last 24 Hours (Table) 02/20/18 02/20/18 02/20/18 Range/Units 15:36 15:36 15:36 WBC 11.6 H (3.8-10.6) k/uL Neutrophils # 8.7 H (1.3-7.7) k/uL Creatinine 0.55 L (0.66-1.25) mg/dL POC Glucose (mg/dL) (75-99) mg/dL Phosphorus 4.7 H (2.5-4.5) mg/dL Alkaline Phosphatase 131 H (38-126) U/L Total Creatine Kinase 21 L (55-170) U/L 02/20/18 02/21/18 02/21/18 Range/Units 20:41 07:34 12:27 WBC (3.8-10.6) k/uL Neutrophils # (1.3-7.7) k/uL Creatinine (0.66-1.25) mg/dL POC Glucose (mg/dL) 145 H 163 H 136 H (75-99) mg/dL Phosphorus (2.5-4.5) mg/dL Alkaline Phosphatase (38-126) U/L Total Creatine Kinase (55-170) U/L Comments: CT report of neck,chest reviewed Chest x-ray: report reviewed Assessment and Plan (1) Squamous cell carcinoma Narrative/Plan: Of the head/neck. Pt is interested in treatment. Dr. Barron did review the images and the disease still looks limited and there may still be a possibility of cure. Chemo/Radiation was discussed. Pt has had time to work through his personal issues and does want active treatment and is willing to proceed. Orders have been sent in the office for the same. Treatment will begin outpatient. Pt does understand that he needs to be treated for the aspiration pneumonia before treatment can begin. Will defer mgmt of the same to appropriate specialties. Current Visit: Yes Status: Acute Priority: High Code(s): C44.92 - SQUAMOUS CELL CARCINOMA OF SKIN, UNSPECIFIED SNOMED Code(s): 037545009 Plan: Attests: I have performed H&P and developed impression and plan of care for pt, discussed with dictator. I agree with dictated note, documented as a scribe.
[2018-02-21] MEDS: DOXYCYCLINE 100 MG CAP PO SCH (20:01)
[2018-02-21] MEDS: SENNOSIDES 8.6 MG TAB PO SCH (20:01)
[2018-02-21 20:42] LABS: Glucose,Whole Blood 133 mg/dL (75-99)
[2018-02-22] MEDS: methylPREDNISolone SOD SUCCI 125 MG/2 ML VIAL IV SCH ×3 (01:06→13:01)
[2018-02-22] MEDS: ONDANSETRON 4 MG/2 ML VIAL IVP PRN ×4 (01:07→20:44)
[2018-02-22] MEDS: HYOSCYAMINE ORAL DROPS 1.875 MG/15 ML BOTTLE SUBLINGUAL SCH ×8 (01:07→23:09)
[2018-02-22] MEDS: SODIUM CHLORIDE 0.9% 1,000 ML IV SCH ×3 (01:07→20:44)
[2018-02-22] MEDS: HYDROcodone/APAP 5-325MG 1 EACH TAB PO PRN (05:41)
[2018-02-22 07:16] LABS: Glucose,Whole Blood 199 mg/dL (75-99)
[2018-02-22] MEDS: IPRATROPIUM-ALBUTEROL 3 ML NEB INHALATION SCH ×4 (07:17→19:14)
[2018-02-22] MEDS: INSULIN ASPART 100 UNIT/ML 1 ML 10 ML VIAL SQ SCH ×4 (07:54→20:51)
[2018-02-22] MEDS: DOXYCYCLINE 100 MG CAP PO SCH ×2 (07:55→20:45)
[2018-02-22] MEDS: ENOXAPARIN 40 MG/0.4 ML SYRINGE SQ SCH (07:55)
[2018-02-22] MEDS: FAMOTIDINE 20 MG TAB PO SCH (07:55)
[2018-02-22 08:11] LABS: Basophils % (A) 0 %; Eosinophils % (A) 0 %; HCT 39.3 % (39.0-53.0); HGB 12.8 gm/dL (13.0-17.5); Lymphocytes # (A) 1.2 k/uL (1.0-4.8); Lymphocytes % (A) 5 %; MCH 30.4 pg (25.0-35.0); MCHC 32.6 g/dL (31.0-37.0); MCV 93.2 fL (80.0-100.0); Monocytes # (A) 0.9 k/uL (0-1.0); Monocytes % (A) 4 %; Neutrophils # (A) 24.3 k/uL (1.3-7.7); Neutrophils % (A) 91 %; Platelet Count 463 k/uL (150-450); RBC 4.22 m/uL (4.30-5.90); RDW 13.9 % (11.5-15.5); WBC 26.7 k/uL (3.8-10.6)
[2018-02-22 08:32] LABS: ALT 31 U/L (21-72); AST 27 U/L (17-59); Albumin 3.2 g/dL (3.5-5.0); Alkaline Phosphatase 101 U/L (38-126); Anion Gap 6 mmol/L; Blood Urea Nitrogen 18 mg/dL (9-20); Calcium 9.7 mg/dL (8.4-10.2); Carbon Dioxide 25 mmol/L (22-30); Chloride 113 mmol/L (98-107); Glucose 165 mg/dL (74-99); Potassium 4.5 mmol/L (3.5-5.1); Sodium 144 mmol/L (137-145); Total Bilirubin 0.4 mg/dL (0.2-1.3); Total Protein 6.1 g/dL (6.3-8.2)
--- NOTE | 2018-02-22 10:24 | XR ---
EXAMINATION TYPE: XR chest 1V portable DATE OF EXAM: 02/22/2018 COMPARISON: 02/21/2018 HISTORY: Alveolar edema. Shortness of breath. TECHNIQUE: Single frontal view of the chest is obtained. FINDINGS: There is redemonstration of a median tracheostomy tube. Again there is chronic emphysemato us changes. A faint opacity seen on the prior CT of 02/20/2018 are better appreciated on CT than on rad iograph. Radiographically no focal consolidation, pleural effusion or pneumothorax is seen. Cardia me diastinal silhouette is within normal limits. Mild multilevel degenerative changes of the thoracic sp ine are noted. IMPRESSION: Radiographically there is no acute cardiopulmonary process. The known bibasilar opacitie s are best seen on CT.
[2018-02-22 11:48] LABS: Glucose,Whole Blood 125 mg/dL (75-99)
--- NOTE | 2018-02-22 15:36 | P.PN ---
Subjective Progress Note Date: 02/22/18 Principal diagnosis: Acute COPD exacerbation, purulent tracheobronchitis, metastatic stage IV throat cancer, respiratory failure related to above and multifactorial process 02/22/2018, patient seen wayne examined during rounds clinically she is today he is doing slightly better complaining of some issues associated with IV steroid with nausea, patient is status post new #8 Silver Ajit tube 02/21/2018, patient seen eval reexamined during the morning rounds clinically has been doing relatively better cough congestion shortness of breath is still there, patient is somewhat anxious has difficulty in expressing himself, patient feels that IV steroids have been helping, broad-spectrum antibiotics have been ordered, follow clinical course closely 63-year-old male has limited capacity to express himself due to tracheostomy, patient has a history of throat cancer, he is status post tracheostomy for the last 1 week having excessive amount of respiratory secretions thick tenacious came into the hospital for further evaluation has been admitted into the hospital for [facility] care, tracheostomy appears to be working fairly well, his admitted chest x-ray is suggestive of COPD-like finding no active infiltrates have been noted, the computed tomography scan of the neck and chest revealed extensive tumor filling the nasopharyngeal and oropharyngeal airway with metastatic cervical lymphadenopathy bilaterally, the tracheostomy is in a stable position below the cords, extensive tumor extension around internal carotid and [place] noted, the lung windows reveal emphysematous changes with blebs formation, patchy infiltrate in the left lower lobe cannot be excluded, some infiltrate patchy interstitial with a groundglass attenuation in the right upper lobe and right midlung field area, no nodule or mass noted, oxygenation is stable on the trach collar as well as on room air in mid 90s, white cell count is 11,000, patient did receive a dose of IV steroid which was helpful would benefit from the broad-spectrum antibiotics as well Objective - Vital Signs Vital signs: Vital Signs Temp 98.4 F 02/22/18 15:00 Pulse 93 02/22/18 15:00 Resp 18 02/22/18 15:00 BP 129/76 02/22/18 15:00 Pulse Ox 99 02/22/18 15:00 Intake & Output 02/21/18 02/22/18 02/22/18 18:59 06:59 18:59 Intake Total 2400 1250 Balance 2400 1250 Weight 70.3 kg 68 kg Intake: IV 850 Sodium Chloride 0.9% 1, 800 000 ml @ 100 mls/hr IV . Q10H DIANE Rx#:[id number] cefTRIAXone 1,000 mg In 50 Sodium Chloride 0.9% 50 ml @ 100 mls/hr IVPB Q24HR DIANE Rx#:[id number] Tube Feeding 2400 400 - Exam Constitutional General appearance: average body habitus, cooperative, disheveled, mild distress - EENT Eyes: EOMI, PERRLA, poor dentition Ears: bilateral: normal - Neck Tracheostomy intact, Neck: normal ROM Thyroid: bilateral: normal size - Respiratory Respiratory: bilateral: diminished, rhonchi, wheezing - Cardiovascular Rhythm: regular Heart sounds: normal: S1, S2 - Gastrointestinal General gastrointestinal: normal bowel sounds, soft - Neurologic Neurologic: CNII-XII intact - Musculoskeletal Musculoskeletal: gait normal, generalized weakness, strength equal bilaterally - Psychiatric Psychiatric: A&O x's 3, appropriate affect, intact judgment & insight - Labs CBC & Chem 7: 02/22/18 07:39 02/22/18 07:39 Labs: Abnormal Lab Results - Last 24 Hours (Table) 02/21/18 02/21/18 02/22/18 Range/Units 17:07 20:40 07:14 WBC (3.8-10.6) k/uL RBC (4.30-5.90) m/uL Hgb (13.0-17.5) gm/dL Plt Count (150-450) k/uL Neutrophils # (1.3-7.7) k/uL Chloride (98-107) mmol/L Creatinine (0.66-1.25) mg/dL Glucose (74-99) mg/dL POC Glucose (mg/dL) 168 H 133 H 199 H (75-99) mg/dL Total Protein (6.3-8.2) g/dL Albumin (3.5-5.0) g/dL 02/22/18 02/22/18 02/22/18 Range/Units 07:39 07:39 11:40 WBC 26.7 H (3.8-10.6) k/uL RBC 4.22 L (4.30-5.90) m/uL Hgb 12.8 L (13.0-17.5) gm/dL Plt Count 463 H (150-450) k/uL Neutrophils # 24.3 H (1.3-7.7) k/uL Chloride 113 H (98-107) mmol/L Creatinine 0.60 L (0.66-1.25) mg/dL Glucose 165 H (74-99) mg/dL POC Glucose (mg/dL) 125 H (75-99) mg/dL Total Protein 6.1 L (6.3-8.2) g/dL Albumin 3.2 L (3.5-5.0) g/dL Assessment and Plan Assessment: Acute purulent tracheobronchitis Acute COPD exacerbation Stance is stage IV throat cancer Tracheostomy changed as per ENT services Plan: IV steroids, we'll lower down Trach cares suctioning and cleaning Broad-spectrum antibiotics Other recommendations pending plan of care as per clinical response of the patient Time with Patient: Greater than 30
[2018-02-22 15:37] VITALS: BMI 24.2
[2018-02-22 17:01] LABS: Glucose,Whole Blood 167 mg/dL (75-99)
[2018-02-22 20:32] LABS: Glucose,Whole Blood 135 mg/dL (75-99)
[2018-02-22] MEDS: methylPREDNISolone SOD SUCCI 40 MG/ML 1 ML VIAL IV SCH (20:45)
[2018-02-22] MEDS: SENNOSIDES 8.6 MG TAB PO SCH (20:45)
[2018-02-22] MEDS: LORazepam 1 MG TAB PO PRN (23:21)
[2018-02-23] MEDS: ONDANSETRON 4 MG/2 ML VIAL IVP PRN ×3 (01:44→20:16)
[2018-02-23] MEDS: HYOSCYAMINE ORAL DROPS 1.875 MG/15 ML BOTTLE SUBLINGUAL SCH ×6 (03:31→23:37)
[2018-02-23] MEDS: SODIUM CHLORIDE 0.9% 1,000 ML IV SCH ×2 (06:00→15:07)
[2018-02-23 07:13] LABS: Glucose,Whole Blood 130 mg/dL (75-99)
[2018-02-23] MEDS: IPRATROPIUM-ALBUTEROL 3 ML NEB INHALATION SCH ×4 (07:18→19:32)
[2018-02-23] MEDS: FAMOTIDINE 20 MG TAB PO SCH (07:53)
[2018-02-23] MEDS: ENOXAPARIN 40 MG/0.4 ML SYRINGE SQ SCH (07:53)
[2018-02-23] MEDS: DOXYCYCLINE 100 MG CAP PO SCH (07:53)
[2018-02-23] MEDS: INSULIN ASPART 100 UNIT/ML 1 ML 10 ML VIAL SQ SCH ×4 (07:54→20:28)
[2018-02-23] MEDS: methylPREDNISolone SOD SUCCI 40 MG/ML 1 ML VIAL IV SCH ×2 (07:54→20:16)
--- NOTE | 2018-02-23 11:36 | PN ---
PROGRESS NOTE DATE OF SERVICE: 02/22/2018 SUBJECTIVE: A 63-year-old white male with COPD, tracheobronchitis, metastatic stage IV throat cancer, respiratory failure secondary to the above, status post new tracheostomy placement which required high-dose Ativan for him to breathe at home due to significant nervousness over his breathing. Tracheostomy stable position with extension around the internal carotid [place] with associated chemotherapy starting up when he goes home. Chest x-ray shows left lower lobe infiltrate, ground-glass attenuation right upper lobe, right lung mid lobe. He is on broad-spectrum antibiotics and steroids. Blood pressure over 120s/70s, temp 98.4, pulse 93, respiratory rate 16 to 18, O2 is 93. GENERAL: Thin, cachectic, nervous-appearing man, trachea intact. CARDIOVASCULAR: S1, S2. LUNGS: Diminished lung flow. GI: Soft. NEUROLOGIC: Cranial nerves are intact. PSYCH: Fair mood and affect. White count 26.7, hemoglobin 12.3. ASSESSMENT: 1. Acute purulent tracheobronchitis. 2. Chronic obstructive pulmonary disease exacerbation. 3. Stage IV throat cancer. Trach in place. Cut down his steroids. Trach care, broad-spectrum antibiotics. Possible discharge if patient is cleared for discharge by Pulmonology. MMODL / IJN: [id number] /
[2018-02-23 12:05] LABS: Glucose,Whole Blood 118 mg/dL (75-99)
[2018-02-23 12:21] LABS: Basophils % (A) 0 %; Eosinophils # (A) 0.2 k/uL (0-0.7); Eosinophils % (A) 1 %; HCT 41.9 % (39.0-53.0); HGB 14.3 gm/dL (13.0-17.5); Lymphocytes # (A) 2.4 k/uL (1.0-4.8); Lymphocytes % (A) 10 %; MCH 30.8 pg (25.0-35.0); MCHC 34.2 g/dL (31.0-37.0); MCV 90.1 fL (80.0-100.0); Monocytes # (A) 1.4 k/uL (0-1.0); Monocytes % (A) 6 %; Neutrophils # (A) 20.1 k/uL (1.3-7.7); Neutrophils % (A) 83 %; Platelet Count 473 k/uL (150-450); RBC 4.65 m/uL (4.30-5.90); WBC 24.3 k/uL (3.8-10.6)
[2018-02-23 15:39] LABS: Anion Gap 9 mmol/L; Blood Urea Nitrogen 18 mg/dL (9-20); Calcium 9.8 mg/dL (8.4-10.2); Carbon Dioxide 19 mmol/L (22-30); Chloride 117 mmol/L (98-107); Glucose 120 mg/dL (74-99); Potassium 4.6 mmol/L (3.5-5.1); Sodium 145 mmol/L (137-145)
[2018-02-23 17:15] LABS: Glucose,Whole Blood 106 mg/dL (75-99)
[2018-02-23] MEDS: SENNOSIDES 8.6 MG TAB PO SCH (20:16)
[2018-02-23 20:24] LABS: Glucose,Whole Blood 110 mg/dL (75-99)
--- NOTE | 2018-02-23 21:21 | PN ---
PROGRESS NOTE SUBJECTIVE: 63-year-old white male with trach care, shortness of breath due to pneumonia, leukocytosis, a white count [id number], steroids have been decreased to 40 q.12. Antibiotics have been switched off doxycycline to something else per pulmonology due to GI upset. Ativan has not been used hardly at all as he is breathing better with a trach. CARDIOVASCULAR: S1-S2. LUNGS: Scattered rhonchi and wheeze. : No suprapubic tenderness. HEMATOLOGY: Negative Homans. ASSESSMENT: 1. Esophageal cancer metastatic. 2. Shortness of breath secondary to above with trach prior tracheostomy plugging with new trach placed. Please see further orders. MMODL / IJN: [id number] /
[2018-02-24] MEDS: SODIUM CHLORIDE 0.9% 1,000 ML IV SCH ×3 (02:18→22:36)
[2018-02-24] MEDS: HYOSCYAMINE ORAL DROPS 1.875 MG/15 ML BOTTLE SUBLINGUAL SCH ×5 (03:13→21:12)
[2018-02-24] MEDS: methylPREDNISolone SOD SUCCI 40 MG/ML 1 ML VIAL IV SCH ×2 (07:24→21:11)
[2018-02-24] MEDS: ENOXAPARIN 40 MG/0.4 ML SYRINGE SQ SCH (07:25)
[2018-02-24] MEDS: INSULIN ASPART 100 UNIT/ML 1 ML 10 ML VIAL SQ SCH ×4 (07:25→21:11)
[2018-02-24] MEDS: FAMOTIDINE 20 MG TAB PO SCH (07:25)
[2018-02-24] MEDS: IPRATROPIUM-ALBUTEROL 3 ML NEB INHALATION SCH ×4 (07:33→20:24)
[2018-02-24 07:39] LABS: Glucose,Whole Blood 131 mg/dL (75-99)
[2018-02-24 08:37] LABS: Basophils % (A) 0 %; Eosinophils # (A) 0.1 k/uL (0-0.7); Eosinophils % (A) 1 %; HCT 42.1 % (39.0-53.0); HGB 13.2 gm/dL (13.0-17.5); Lymphocytes # (A) 2.4 k/uL (1.0-4.8); Lymphocytes % (A) 12 %; MCHC 31.4 g/dL (31.0-37.0); MCV 92.3 fL (80.0-100.0); Mean Platelet Volume 6.9; Monocytes # (A) 1.3 k/uL (0-1.0); Monocytes % (A) 7 %; Neutrophils # (A) 15.4 k/uL (1.3-7.7); Neutrophils % (A) 79 %; Platelet Count 461 k/uL (150-450); RBC 4.56 m/uL (4.30-5.90); RDW 13.7 % (11.5-15.5); WBC 19.6 k/uL (3.8-10.6)
[2018-02-24 08:50] LABS: ALT 95 U/L (21-72); AST 62 U/L (17-59); Albumin 3.3 g/dL (3.5-5.0); Alkaline Phosphatase 105 U/L (38-126); Anion Gap 7 mmol/L; Blood Urea Nitrogen 12 mg/dL (9-20); Calcium 9.3 mg/dL (8.4-10.2); Carbon Dioxide 29 mmol/L (22-30); Chloride 106 mmol/L (98-107); Glucose 122 mg/dL (74-99); Potassium 3.6 mmol/L (3.5-5.1); Sodium 142 mmol/L (137-145); Total Bilirubin 0.9 mg/dL (0.2-1.3); Total Protein 6.2 g/dL (6.3-8.2)
--- NOTE | 2018-02-24 10:08 | P.PN ---
Subjective Progress Note Date: 02/23/18 Principal diagnosis: Acute COPD exacerbation, purulent tracheobronchitis, metastatic stage IV throat cancer, respiratory failure related to above and multifactorial process 02/23/2018, patient seen eval examined during the rounds, patient had transient episode of some numbness in the hand bilaterally after antibiotics which has been stopped the numbness has resolved now no more episode has been noted, patient overall has been doing well will monitor observe for another 24 hours patient has been refusing steroids as well, patient has been having some nausea but has refused Zofran 02/22/2018, patient seen evrios examined during rounds clinically she is today he is doing slightly better complaining of some issues associated with IV steroid with nausea, patient is status post new #8 Silver Ajit tube 02/21/2018, patient seen evrios reexamined during the morning rounds clinically has been doing relatively better cough congestion shortness of breath is still there, patient is somewhat anxious has difficulty in expressing himself, patient feels that IV steroids have been helping, broad-spectrum antibiotics have been ordered, follow clinical course closely 63-year-old male has limited capacity to express himself due to tracheostomy, patient has a history of throat cancer, he is status post tracheostomy for the last 1 week having excessive amount of respiratory secretions thick tenacious came into the hospital for further evaluation has been admitted into the [facility], tracheostomy appears to be working fairly well, his admitted chest x-ray is suggestive of COPD-like finding no active infiltrates have been noted, the computed tomography scan of the neck and chest revealed extensive tumor filling the nasopharyngeal and oropharyngeal airway with metastatic cervical lymphadenopathy bilaterally, the tracheostomy is in a stable position below the cords, extensive tumor extension around internal carotid and [place] noted, the lung windows reveal emphysematous changes with blebs formation, patchy infiltrate in the left lower lobe cannot be excluded, some infiltrate patchy interstitial with a groundglass attenuation in the right upper lobe and right midlung field area, no nodule or mass noted, oxygenation is stable on the trach collar as well as on room air in mid 90s, white cell count is 11,000, patient did receive a dose of IV steroid which was helpful would benefit from the broad-spectrum antibiotics as well Objective - Vital Signs Vital signs: Vital Signs Temp 98.7 F 02/24/18 07:00 Pulse 75 02/24/18 07:00 Resp 18 02/24/18 07:00 BP 158/81 02/24/18 07:00 Pulse Ox 98 02/24/18 07:00 Intake & Output 02/23/18 02/24/18 02/24/18 18:59 06:59 18:59 Intake Total 800 1200 400 Output Total 450 Balance 800 750 400 Weight 68.5 kg Intake: Tube Feeding 800 1200 400 Output: Urine 450 Other: Voiding Method Toilet Toilet Toilet # Bowel Movements 1 - Exam Constitutional General appearance: average body habitus, cooperative, disheveled, mild distress - EENT Eyes: EOMI, PERRLA, poor dentition Ears: bilateral: normal - Neck Tracheostomy intact, Neck: normal ROM Thyroid: bilateral: normal size - Respiratory Respiratory: bilateral: diminished, rhonchi, wheezing - Cardiovascular Rhythm: regular Heart sounds: normal: S1, S2 - Gastrointestinal General gastrointestinal: normal bowel sounds, soft - Neurologic Neurologic: CNII-XII intact - Musculoskeletal Musculoskeletal: gait normal, generalized weakness, strength equal bilaterally - Psychiatric Psychiatric: A&O x's 3, appropriate affect, intact judgment & insight - Labs CBC & Chem 7: 02/24/18 08:13 02/24/18 08:13 Labs: Abnormal Lab Results - Last 24 Hours (Table) 02/23/18 02/23/18 02/23/18 Range/Units 11:43 12:03 14:30 WBC 24.3 H (3.8-10.6) k/uL Plt Count 473 H (150-450) k/uL Neutrophils # 20.1 H (1.3-7.7) k/uL Monocytes # 1.4 H (0-1.0) k/uL Chloride 117 H (98-107) mmol/L Carbon Dioxide 19 L (22-30) mmol/L Creatinine 0.56 L (0.66-1.25) mg/dL Glucose 120 H (74-99) mg/dL POC Glucose (mg/dL) 118 H (75-99) mg/dL AST (17-59) U/L ALT (21-72) U/L Total Protein (6.3-8.2) g/dL Albumin (3.5-5.0) g/dL 02/23/18 02/23/18 02/24/18 Range/Units 17:05 20:20 07:21 WBC (3.8-10.6) k/uL Plt Count (150-450) k/uL Neutrophils # (1.3-7.7) k/uL Monocytes # (0-1.0) k/uL Chloride (98-107) mmol/L Carbon Dioxide (22-30) mmol/L Creatinine (0.66-1.25) mg/dL Glucose (74-99) mg/dL POC Glucose (mg/dL) 106 H 110 H 131 H (75-99) mg/dL AST (17-59) U/L ALT (21-72) U/L Total Protein (6.3-8.2) g/dL Albumin (3.5-5.0) g/dL 02/24/18 02/24/18 Range/Units 08:13 08:13 WBC 19.6 H (3.8-10.6) k/uL Plt Count 461 H (150-450) k/uL Neutrophils # 15.4 H (1.3-7.7) k/uL Monocytes # 1.3 H (0-1.0) k/uL Chloride (98-107) mmol/L Carbon Dioxide (22-30) mmol/L Creatinine 0.64 L (0.66-1.25) mg/dL Glucose 122 H (74-99) mg/dL POC Glucose (mg/dL) (75-99) mg/dL AST 62 H (17-59) U/L ALT 95 H (21-72) U/L Total Protein 6.2 L (6.3-8.2) g/dL Albumin 3.3 L (3.5-5.0) g/dL Assessment and Plan Assessment: Nonspecific symptoms of numbness in the hand for transient episode time likely related to hyperventilation and severe anxiety improved and resolved now Acute purulent tracheobronchitis, symptoms have improved will monitor off of antibiotics and the steroids Acute COPD exacerbation, continued to improve plan as above Stance is stage IV throat cancer Tracheostomy changed as per ENT services Plan: Observe off of antibiotics breathing treatment and steroids Trach cares suctioning and cleaning Other recommendations pending plan of care as per clinical response of the patient Time with Patient: Greater than 30
--- NOTE | 2018-02-24 10:09 | P.PN ---
Subjective Progress Note Date: 02/24/18 Principal diagnosis: Acute COPD exacerbation, purulent tracheobronchitis, metastatic stage IV throat cancer, respiratory failure related to above and multifactorial process 02/24/2018, patient seen eval examined during the rounds he is sitting upright in the bed breathing comfortably hemodynamic status stable patient has refused to on the antibiotics breathing treatments and steroids, he is complaining of some stomach discomfort, he has been on Pepcid he has some stool which is negative for C. diff, agree with discharge planning later on today or tomorrow 02/23/2018, patient seen eval examined during the rounds, patient had transient episode of some numbness in the hand bilaterally after antibiotics which has been stopped the numbness has resolved now no more episode has been noted, patient overall has been doing well will monitor observe for another 24 hours patient has been refusing steroids as well, patient has been having some nausea but has refused Zofran 02/22/2018, patient seen eval examined during rounds clinically she is today he is doing slightly better complaining of some issues associated with IV steroid with nausea, patient is status post new #8 Silver Ajit tube 02/21/2018, patient seen eval reexamined during the morning rounds clinically has been doing relatively better cough congestion shortness of breath is still there, patient is somewhat anxious has difficulty in expressing himself, patient feels that IV steroids have been helping, broad-spectrum antibiotics have been ordered, follow clinical course closely 63-year-old male has limited capacity to express himself due to tracheostomy, patient has a history of throat cancer, he is status post tracheostomy for the last 1 week having excessive amount of respiratory secretions thick tenacious came into the hospital for further evaluation has been admitted into the hospital for trach care, tracheostomy appears to be working fairly well, his admitted chest x-ray is suggestive of COPD-like finding no active infiltrates have been noted, the computed tomography scan of the neck and chest revealed extensive tumor filling the nasopharyngeal and oropharyngeal airway with metastatic cervical lymphadenopathy bilaterally, the tracheostomy is in a stable position below the cords, extensive tumor extension around internal carotid and [place] of [place] noted, the lung windows reveal emphysematous changes with blebs formation, patchy infiltrate in the left lower lobe cannot be excluded, some infiltrate patchy interstitial with a groundglass attenuation in the right upper lobe and right midlung field area, no nodule or mass noted, oxygenation is stable on the trach collar as well as on room air in mid 90s, white cell count is 11,000, patient did receive a dose of IV steroid which was helpful would benefit from the broad-spectrum antibiotics as well Objective - Vital Signs Vital signs: Vital Signs Temp 98.7 F 02/24/18 07:00 Pulse 75 02/24/18 07:00 Resp 18 02/24/18 07:00 BP 158/81 02/24/18 07:00 Pulse Ox 98 02/24/18 07:00 Intake & Output 02/23/18 02/24/18 02/24/18 18:59 06:59 18:59 Intake Total 800 1200 400 Output Total 450 Balance 800 750 400 Weight 68.5 kg Intake: Tube Feeding 800 1200 400 Output: Urine 450 Other: Voiding Method Toilet Toilet Toilet # Bowel Movements 1 - Exam Constitutional General appearance: average body habitus, cooperative, disheveled, mild distress - EENT Eyes: EOMI, PERRLA, poor dentition Ears: bilateral: normal - Neck Tracheostomy intact, Neck: normal ROM Thyroid: bilateral: normal size - Respiratory Respiratory: bilateral: diminished, rhonchi, wheezing - Cardiovascular Rhythm: regular Heart sounds: normal: S1, S2 - Gastrointestinal General gastrointestinal: normal bowel sounds, soft - Neurologic Neurologic: CNII-XII intact - Musculoskeletal Musculoskeletal: gait normal, generalized weakness, strength equal bilaterally - Psychiatric Psychiatric: A&O x's 3, appropriate affect, intact judgment & insight - Labs CBC & Chem 7: 02/24/18 08:13 02/24/18 08:13 Labs: Abnormal Lab Results - Last 24 Hours (Table) 02/23/18 02/23/18 02/23/18 Range/Units 11:43 12:03 14:30 WBC 24.3 H (3.8-10.6) k/uL Plt Count 473 H (150-450) k/uL Neutrophils # 20.1 H (1.3-7.7) k/uL Monocytes # 1.4 H (0-1.0) k/uL Chloride 117 H (98-107) mmol/L Carbon Dioxide 19 L (22-30) mmol/L Creatinine 0.56 L (0.66-1.25) mg/dL Glucose 120 H (74-99) mg/dL POC Glucose (mg/dL) 118 H (75-99) mg/dL AST (17-59) U/L ALT (21-72) U/L Total Protein (6.3-8.2) g/dL Albumin (3.5-5.0) g/dL 02/23/18 02/23/18 02/24/18 Range/Units 17:05 20:20 07:21 WBC (3.8-10.6) k/uL Plt Count (150-450) k/uL Neutrophils # (1.3-7.7) k/uL Monocytes # (0-1.0) k/uL Chloride (98-107) mmol/L Carbon Dioxide (22-30) mmol/L Creatinine (0.66-1.25) mg/dL Glucose (74-99) mg/dL POC Glucose (mg/dL) 106 H 110 H 131 H (75-99) mg/dL AST (17-59) U/L ALT (21-72) U/L Total Protein (6.3-8.2) g/dL Albumin (3.5-5.0) g/dL 02/24/18 02/24/18 Range/Units 08:13 08:13 WBC 19.6 H (3.8-10.6) k/uL Plt Count 461 H (150-450) k/uL Neutrophils # 15.4 H (1.3-7.7) k/uL Monocytes # 1.3 H (0-1.0) k/uL Chloride (98-107) mmol/L Carbon Dioxide (22-30) mmol/L Creatinine 0.64 L (0.66-1.25) mg/dL Glucose 122 H (74-99) mg/dL POC Glucose (mg/dL) (75-99) mg/dL AST 62 H (17-59) U/L ALT 95 H (21-72) U/L Total Protein 6.2 L (6.3-8.2) g/dL Albumin 3.3 L (3.5-5.0) g/dL Assessment and Plan Assessment: Nonspecific symptoms of numbness in the hand for transient episode time likely related to hyperventilation and severe anxiety improved and resolved now Acute purulent tracheobronchitis, symptoms have improved will monitor off of antibiotics and the steroids Acute COPD exacerbation, continued to improve plan as above Stance is stage IV throat cancer Tracheostomy changed as per ENT services Plan: Observe off of antibiotics breathing treatment and steroids Trach cares suctioning and cleaning Other recommendations pending plan of care as per clinical response of the patient Time with Patient: Greater than 30
[2018-02-24 12:03] LABS: Glucose,Whole Blood 137 mg/dL (75-99)
--- NOTE | 2018-02-24 17:04 | PN ---
PROGRESS NOTE DATE OF SERVICE: 02/24/2018 He was seen on February2018. He is complaining of abdominal pain. He has been tolerating his tube feeds. His tracheostomy has been changed. On physical examination, blood pressure is 122/70, respiratory rate of 22, pulse rate 85, temperature 99 degrees Fahrenheit, O2 saturation on trach collar is 98%. HEENT reveals tracheostomy in place. Chest is relatively clear. Abdomen is soft, mildly tender. PEG tube is in place. There is no edema. Labs and medications were reviewed. IMPRESSION: 1. Head and neck cancer, status post tracheostomy. 2. Esophageal cancer. 3. Abdominal pain, etiology which is unclear for which we will have the patient seen by General surgery and await their evaluation. MMODL / IJN: [id number] /
[2018-02-24 17:26] LABS: Glucose,Whole Blood 118 mg/dL (75-99)
[2018-02-24] MEDS: LORazepam 1 MG TAB PO PRN ×2 (18:21→22:33)
[2018-02-24] MEDS: HYDROcodone/APAP 5-325MG 1 EACH TAB PO PRN ×2 (18:21→22:34)
[2018-02-24 20:37] LABS: Glucose,Whole Blood 124 mg/dL (75-99)
[2018-02-24] MEDS: SENNOSIDES 8.6 MG TAB PO SCH (21:11)
[2018-02-25] MEDS: HYOSCYAMINE ORAL DROPS 1.875 MG/15 ML BOTTLE SUBLINGUAL SCH ×4 (00:20→12:11)
[2018-02-25 06:06] VITALS: BP 126/70; RESP 18; TEMP 98.8
[2018-02-25 07:11] LABS: Glucose,Whole Blood 151 mg/dL (75-99)
[2018-02-25] MEDS: IPRATROPIUM-ALBUTEROL 3 ML NEB INHALATION SCH ×5 (07:22→15:27)
[2018-02-25] MEDS: FAMOTIDINE 20 MG TAB PO SCH (08:12)
[2018-02-25] MEDS: HYDROcodone/APAP 5-325MG 1 EACH TAB PO PRN (08:12)
[2018-02-25] MEDS: INSULIN ASPART 100 UNIT/ML 1 ML 10 ML VIAL SQ SCH ×2 (08:14→12:49)
[2018-02-25] MEDS: ENOXAPARIN 40 MG/0.4 ML SYRINGE SQ SCH (08:14)
[2018-02-25] MEDS: LORazepam 1 MG TAB PO PRN ×2 (08:14→15:02)
[2018-02-25] MEDS: methylPREDNISolone SOD SUCCI 40 MG/ML 1 ML VIAL IV SCH (08:14)
--- NOTE | 2018-02-25 08:15 | P.GSCN ---
History of Present Illness Consult date: 02/25/18 History of present illness: Mr. 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 This area was found in November 2017 and was concerning for imminent airway compromise. Secondary to this, he did undergo a tracheostomy and PEG placement. After this initial diagnosis, recommendation was made for neoadjuvant chemotherapy and radiation therapy with curative intent. Initially, the patient did not opt for treatment and opted for hospice instead. He recently closed this case with hospice and is seeking active treatment. He was admitted for aspiration pneumonia. While admitted, he has been on consistent tube feeding and states that he is feeling distended and bloated and having abdominal pain. He is also complaining of diarrhea. With his complaints yesterday, the rate of tube feeding was lowered and he states he feels much better since the tube feeding rate was lowered. He normally is on bolus tube feeding at home. He also states that he has had improvement in his bowel function. Currently, he does not have any abdominal pain. He denies any nausea or vomiting episodes. He denies any fevers, chills , chest pain or shortness of breath at this time. Review of Systems All systems: negative Past Medical History Past Medical History: No Reported History Additional Past Medical History / Comment(s): throat cancer History of Any Multi-Drug Resistant Organisms: None Reported Past Surgical History: No Surgical Hx Reported Past Anesthesia/Blood Transfusion Reactions: No Reported Reaction Past Psychological History: Anxiety Smoking Status: Former smoker Past Alcohol Use History: None Reported Additional Past Alcohol Use History / Comment(s): Used to drink quite a bit of beer, quit several years ago Past Drug Use History: None Reported - Past Family History Father Family Medical History: Cancer Additional Family Medical History / Comment(s): prostate cancer that spread to the brain Mother Family Medical History: Cancer Additional Family Medical History / Comment(s): ovarian cancer Sister(s) Family Medical History: Cancer Additional Family Medical History / Comment(s): breast cancer Medications and Allergies Home Medications Medication Instructions Recorded Confirmed Type Loratadine [Claritin] 10 mg PO DAILY PRN #30 tab 11/20/17 02/20/18 Rx Ondansetron HCl [Zofran] 4 mg PO Q6HR PRN #20 tablet 11/26/17 02/20/18 Rx HYDROcodone/APAP 5-325MG [[place] 1 - 2 tab PO Q4H PRN 02/20/18 02/20/18 History 5-325] Hyoscyamine Sulfate [Levsin-Sl] 0.125 mg SUBLINGUAL Q4H 02/20/18 02/20/18 History Mag Hydrox/Al Hydrox/Simeth 30 ml PO Q4H PRN 02/20/18 02/20/18 History [Maalox] Ranitidine HCl [Zantac] 150 mg PO DAILY 02/20/18 02/20/18 History Sennosides [Senna] 8.6 mg PO HS 02/20/18 02/20/18 History fentaNYL 25MCG/HR PATCH [Duragesic 1 patch TRANSDERM Q72H 02/20/18 02/20/18 History 25MCG/HR] Allergies Allergy/AdvReac Type Severity Reaction Status Date / Time No Known Allergies Allergy Verified 02/20/18 14:22 Surgical - Exam Osteopathic Statement: *. No significant issues noted on an osteopathic structural exam other than those noted in the History and Physical/Consult. Vital Signs Temp Pulse Resp BP Pulse Ox 98 F 86 20 119/76 99 02/20/18 13:20 02/20/18 13:20 02/20/18 13:20 02/20/18 13:20 02/20/18 13:20 - General no distress - Eyes PERRL, normal ocular movement - ENT Trach in place - Respiratory No difficulty with respiration - Abdomen Soft, nontender, nondistended, no rebound, no guarding, PEG tube is in place with no surrounding skin changes - Psychiatric oriented to time, oriented to person, oriented to place Results - Labs 02/24/18 08:13 02/24/18 08:13 Abnormal Lab Results - Last 24 Hours (Table) 02/24/18 02/24/18 02/24/18 Range/Units 08:13 08:13 11:58 WBC 19.6 H (3.8-10.6) k/uL Plt Count 461 H (150-450) k/uL Neutrophils # 15.4 H (1.3-7.7) k/uL Monocytes # 1.3 H (0-1.0) k/uL Creatinine 0.64 L (0.66-1.25) mg/dL Glucose 122 H (74-99) mg/dL POC Glucose (mg/dL) 137 H (75-99) mg/dL AST 62 H (17-59) U/L ALT 95 H (21-72) U/L Total Protein 6.2 L (6.3-8.2) g/dL Albumin 3.3 L (3.5-5.0) g/dL 02/24/18 02/24/18 02/25/18 Range/Units 17:07 20:37 07:09 WBC (3.8-10.6) k/uL Plt Count (150-450) k/uL Neutrophils # (1.3-7.7) k/uL Monocytes # (0-1.0) k/uL Creatinine (0.66-1.25) mg/dL Glucose (74-99) mg/dL POC Glucose (mg/dL) 118 H 124 H 151 H (75-99) mg/dL AST (17-59) U/L ALT (21-72) U/L Total Protein (6.3-8.2) g/dL Albumin (3.5-5.0) g/dL Diabetes panel 02/24/18 Range/Units 08:13 Sodium 142 (137-145) mmol/L Potassium 3.6 (3.5-5.1) mmol/L Chloride 106 (98-107) mmol/L Carbon Dioxide 29 (22-30) mmol/L BUN 12 (9-20) mg/dL Creatinine 0.64 L (0.66-1.25) mg/dL Glucose 122 H (74-99) mg/dL Calcium 9.3 (8.4-10.2) mg/dL AST 62 H (17-59) U/L ALT 95 H (21-72) U/L Alkaline Phosphatase 105 (38-126) U/L Total Protein 6.2 L (6.3-8.2) g/dL Albumin 3.3 L (3.5-5.0) g/dL Calcium panel 02/24/18 Range/Units 08:13 Calcium 9.3 (8.4-10.2) mg/dL Albumin 3.3 L (3.5-5.0) g/dL Pituitary panel 02/24/18 Range/Units 08:13 Sodium 142 (137-145) mmol/L Potassium 3.6 (3.5-5.1) mmol/L Chloride 106 (98-107) mmol/L Carbon Dioxide 29 (22-30) mmol/L BUN 12 (9-20) mg/dL Creatinine 0.64 L (0.66-1.25) mg/dL Glucose 122 H (74-99) mg/dL Calcium 9.3 (8.4-10.2) mg/dL Adrenal panel 02/24/18 Range/Units 08:13 Sodium 142 (137-145) mmol/L Potassium 3.6 (3.5-5.1) mmol/L Chloride 106 (98-107) mmol/L Carbon Dioxide 29 (22-30) mmol/L BUN 12 (9-20) mg/dL Creatinine 0.64 L (0.66-1.25) mg/dL Glucose 122 H (74-99) mg/dL Calcium 9.3 (8.4-10.2) mg/dL Total Bilirubin 0.9 (0.2-1.3) mg/dL AST 62 H (17-59) U/L ALT 95 H (21-72) U/L Alkaline Phosphatase 105 (38-126) U/L Total Protein 6.2 L (6.3-8.2) g/dL Albumin 3.3 L (3.5-5.0) g/dL Assessment and Plan Plan: 63-year-old male with abdominal pain - Abdominal pain is likely secondary to intolerance towards tube feeding. Abdominal pain did resolve with lowering of the rate of the tube feeding. I do recommend that when the patient is discharged that he continues his bolus tube feeding. He states that he does see a newspaper reporter outside of the hospital and tube feeding should be adjusted according to the newspaper reporter recommendations based on laboratory values. - The PEG tube looks to be in place without any significant leakage around the tube site. - Continue tube feeding as tolerated - No plan for any acute surgical intervention Thank you for this consultation, I look forward in providing in this patient's care
[2018-02-25] MEDS: SODIUM CHLORIDE 0.9% 1,000 ML IV SCH (08:52)
[2018-02-25] MEDS: ONDANSETRON 4 MG/2 ML VIAL IVP PRN (08:52)
--- NOTE | 2018-02-25 11:43 | P.PN ---
Subjective Progress Note Date: 02/25/18 Principal diagnosis: Acute COPD exacerbation, purulent tracheobronchitis, metastatic stage IV throat cancer, respiratory failure related to above and multifactorial process 02/25/2018, patient seen eval reexamined during the rounds clinically has been doing well cuff congestion shortness of breath has been stable intermittent abdominal discomfort has been stable as well patient has been eval by surgical services no active surgical plans patient to continue his tube feed as recommended and follow-up with the nutritional services on outpatient basis standpoint patient can be discharged home with follow-up on outpatient basis 02/24/2018, patient seen eval examined during the rounds he is sitting upright in the bed breathing comfortably hemodynamic status stable patient has refused to on the antibiotics breathing treatments and steroids, he is complaining of some stomach discomfort, he has been on Pepcid he has some stool which is negative for C. diff, agree with discharge planning later on today or tomorrow 02/23/2018, patient seen eval examined during the rounds, patient had transient episode of some numbness in the hand bilaterally after antibiotics which has been stopped the numbness has resolved now no more episode has been noted, patient overall has been doing well will monitor observe for another 24 hours patient has been refusing steroids as well, patient has been having some nausea but has refused Zofran 02/22/2018, patient seen eval examined during rounds clinically she is today he is doing slightly better complaining of some issues associated with IV steroid with nausea, patient is status post new #8 Silver Ajit tube 02/21/2018, patient seen eval reexamined during the morning rounds clinically has been doing relatively better cough congestion shortness of breath is still there, patient is somewhat anxious has difficulty in expressing himself, patient feels that IV steroids have been helping, broad-spectrum antibiotics have been ordered, follow clinical course closely 63-year-old male has limited capacity to express himself due to tracheostomy, patient has a history of throat cancer, he is status post tracheostomy for the last 1 week having excessive amount of respiratory secretions thick tenacious came into the hospital for further evaluation has been admitted into the hospital for trach care, tracheostomy appears to be working fairly well, his admitted chest x-ray is suggestive of COPD-like finding no active infiltrates have been noted, the computed tomography scan of the neck and chest revealed extensive tumor filling the nasopharyngeal and oropharyngeal airway with metastatic cervical lymphadenopathy bilaterally, the tracheostomy is in a stable position below the cords, extensive tumor extension around internal carotid and seminole of [place] noted, the lung windows reveal emphysematous changes with blebs formation, patchy infiltrate in the left lower lobe cannot be excluded, some infiltrate patchy interstitial with a groundglass attenuation in the right upper lobe and right midlung field area, no nodule or mass noted, oxygenation is stable on the trach collar as well as on room air in mid 90s, white cell count is 11,000, patient did receive a dose of IV steroid which was helpful would benefit from the broad-spectrum antibiotics as well Objective - Vital Signs Vital signs: Vital Signs Temp 98.8 F 02/25/18 06:05 Pulse 88 02/25/18 07:45 Resp 18 02/25/18 06:05 BP 126/70 02/25/18 06:05 Pulse Ox 97 02/25/18 06:05 Intake & Output 02/24/18 02/25/18 02/25/18 18:59 06:59 18:59 Intake Total 800 1200 400 Balance 800 1200 400 Weight 68.5 kg Intake: Tube Feeding 800 1200 400 Other: Voiding Method Toilet # Voids 1 - Exam Constitutional General appearance: average body habitus, cooperative, disheveled, mild distress - EENT Eyes: EOMI, PERRLA, poor dentition Ears: bilateral: normal - Neck Tracheostomy intact, Neck: normal ROM Thyroid: bilateral: normal size - Respiratory Respiratory: bilateral: diminished, rhonchi, wheezing - Cardiovascular Rhythm: regular Heart sounds: normal: S1, S2 - Gastrointestinal General gastrointestinal: normal bowel sounds, soft - Neurologic Neurologic: CNII-XII intact - Musculoskeletal Musculoskeletal: gait normal, generalized weakness, strength equal bilaterally - Psychiatric Psychiatric: A&O x's 3, appropriate affect, intact judgment & insight - Labs CBC & Chem 7: 02/24/18 08:13 02/24/18 08:13 Labs: Abnormal Lab Results - Last 24 Hours (Table) 02/24/18 02/24/18 02/24/18 Range/Units 11:58 17:07 20:37 POC Glucose (mg/dL) 137 H 118 H 124 H (75-99) mg/dL 02/25/18 Range/Units 07:09 POC Glucose (mg/dL) 151 H (75-99) mg/dL Assessment and Plan Assessment: Nonspecific symptoms of numbness in the hand for transient episode time likely related to hyperventilation and severe anxiety improved and resolved now Nonspecific abdominal pain likely related to tube feed patient to go back on his original feeding formula as well as bolus as he was getting before Acute purulent tracheobronchitis, symptoms have improved will monitor off of antibiotics and the steroids Acute COPD exacerbation, continued to improve plan as above stage IV throat cancer Tracheostomy changed as per ENT services Plan: Observe off of antibiotics breathing treatment and steroids Trach cares suctioning and cleaning Other recommendations pending plan of care as per clinical response of the patient Time with Patient: Greater than 30
[2018-02-25 12:36] LABS: Glucose,Whole Blood 165 mg/dL (75-99)
[2018-02-25 15:45] VITALS: PULSE 84
== END 2018-02-25 16:27 | disposition home health service (06) ==
LOC: EC 12:57 → 4MS4W 17:53
PROVIDERS: ADMIT Family Medicine; ATTEND Family Medicine
DX: J69.0 Pneumonitis due to inhalation of food and vomit (principal); C77.0 Secondary and unspecified malignant neoplasm of lymph nodes of head, face and neck; J44.1 Chronic obstructive pulmonary disease with (acute) exacerbation; R13.10 Dysphagia, unspecified; R64 Cachexia; J20.9 Acute bronchitis, unspecified; J44.0 Chronic obstructive pulmonary disease with (acute) lower respiratory infection; R19.7 Diarrhea, unspecified; F41.9 Anxiety disorder, unspecified; J95.03 Malfunction of tracheostomy stoma; Z80.3 Family history of malignant neoplasm of breast; Z80.42 Family history of malignant neoplasm of prostate; Z93.1 Gastrostomy status; Z87.891 Personal history of nicotine dependence; J96.90 Respiratory failure, unspecified, unspecified whether with hypoxia or hypercapnia; C14.0 Malignant neoplasm of pharynx, unspecified; Z79.899 Other long term (current) drug therapy; Z79.891 Long term (current) use of opiate analgesic
CPT/HCPCS: 96376 ×5; 96361 ×5; 96365; 96366 ×3; 96372 ×5; 96375 ×2; 99285; 36415; 94640 ×2; 80053 ×3; 80048; 82550; 82553; 83735; 84100; 85025 ×4; 83036; 71045 ×3; 70491; 71260; G0378 ×6; J2920 ×3; J2930 ×3; J2405 ×4; J1650 ×5; J0696 ×3; Q9967

== ENCOUNTER 2018-03-28 10:25 | Emergency (ER) | payer OTHER ==
[2018-03-28 10:31] VITALS: RESP 18
[2018-03-28] MEDS ORDERED: DEXAMETHASONE SOD PHOSPHATE 10 MG/ML 1 ML VIAL IV STA (11:00)
[2018-03-28] MEDS ORDERED: SODIUM CHLORIDE 0.9% 1,000 ML IV STA (11:01)
--- NOTE | 2018-03-28 11:13 | ED ---
General Adult HPI <Carlos Washburn - Last Filed: 03/28/18 15:59> - General Source: patient, RN notes reviewed, old records reviewed Mode of arrival: ambulatory Limitations: no limitations <Manish Pineda - Last Filed: 03/28/18 20:54> - General Chief complaint: Shortness of Breath Stated complaint: spike, Ca patient Time Seen by Provider: 03/28/18 10:37 - History of Present Illness Initial comments: 62-year-old male patient with past medical history of stage IV esophageal cancer currently receiving chemotherapy, patient has a tracheostomy as well as a PEG tube. Patient reports that he feels as if the mass in his esophagus is pushing on his tracheostomy tube as concerned that it may fall out. Pt denies all other complaints today. Systemic: Pt denies fatigue, myalgia, fever/chills, rash. Pt denies weakness, night sweats, weight loss. Neuro: Pt denies headache, visual disturbances, syncope or pre-syncope. HEENT: Pt denies ocular discharge or irritation, otalgia, rhinorrhea, pharyngitis or notable lymphadenopathy. Cardiopulmonary: Pt denies chest pain, SOB, heart palpitations, dyspnea on exertion. Abdominal/GI: Pt denies abdominal pain, n/v/d. : Pt denies dysuria, burning w/ urination, frequency/urgency. Denies new onset urinary or bowel incontinence. MSK: Pt denies myalgia, loss of strength or function in extremities. Neuro: Pt denies new onset weakness, paresthesias. (Manish Pineda) - Related Data Home Medications Medication Instructions Recorded Confirmed HYDROcodone/APAP 5-325MG [Howell 1 - 2 tab PO Q4H PRN 02/20/18 03/28/18 5-325] Hyoscyamine Sulfate [Levsin-Sl] 0.125 mg SUBLINGUAL Q4H 02/20/18 03/28/18 fentaNYL 25MCG/HR PATCH [Duragesic 1 patch TRANSDERM Q72H 02/20/18 03/28/18 25MCG/HR] LORazepam [Ativan] 1 mg PO TID PRN 03/04/18 03/28/18 Pantoprazole [Protonix] 40 mg PO DAILY 03/04/18 03/28/18 Previous Rx's Medication Instructions Recorded Loratadine [Claritin] 10 mg PO DAILY PRN #30 tab 11/20/17 Ondansetron HCl [Zofran] 4 mg PO Q6HR PRN #20 tablet 11/26/17 Allergies Allergy/AdvReac Type Severity Reaction Status Date / Time No Known Allergies Allergy Verified 03/28/18 10:50 Review of Systems ROS Other: All systems not noted in ROS Statement are negative. <Carlos Washburn - Last Filed: 03/28/18 15:59> ROS Other: All systems not noted in ROS Statement are negative. <Manish Pineda - Last Filed: 03/28/18 20:54> ROS Statement: Those systems with pertinent positive or pertinent negative responses have been documented in the HPI. Past Medical History Past Medical History: Cancer Additional Past Medical History / Comment(s): throat cancer History of Any Multi-Drug Resistant Organisms: None Reported Past Surgical History: No Surgical Hx Reported Additional Past Surgical History / Comment(s): tracheostomy, and PEG tube Past Anesthesia/Blood Transfusion Reactions: No Reported Reaction Past Psychological History: Anxiety Smoking Status: Former smoker Past Alcohol Use History: None Reported Past Drug Use History: None Reported - Past Family History Father Family Medical History: Cancer Additional Family Medical History / Comment(s): prostate cancer that spread to the brain Mother Family Medical History: Cancer Additional Family Medical History / Comment(s): ovarian cancer Sister(s) Family Medical History: Cancer Additional Family Medical History / Comment(s): breast cancer <Manish Pineda - Last Filed: 03/28/18 20:54> General Exam <Carlos Washburn - Last Filed: 03/28/18 15:59> Limitations: no limitations <Manish Pineda - Last Filed: 03/28/18 20:54> - General Exam Comments Initial Comments: Constitutional: NAD, AOX3, Pt has pleasant affect. HEENT: NC/AT, trachea midline, neck supple, no lymphadenopathy. External ears appear normal, without discharge. Mucous membranes moist. Eyes PERRLA, EOM intact. There is no scleral icterus. No pallor noted. Tracheostomy tube in place. Cardiopulmonary: RRR, no murmurs, rubs or gallops, no JVD noted. Lungs CTAB in anterior and posterior alegria. No peripheral edema. Tracheostomy tube in place, patent. Abdominal exam: Abdomen soft and non-distended. Abdomen non-tender to palpation in all 4 quadrants. Bowel sounds active in LLQ. No hepatosplenomegaly. No ecchymosis Neuro: CN II-XII grossly intact. No nuchal rigidity. MSK: No posterior calf tenderness bilaterally, homans sign negative bilaterally. Posterior tibialis and radial pulse +2 bilaterally. Sensation intact in upper and lower extremities. Full active ROM in upper and lower extremities, 5/5 stregnth. (Manish Pineda) Vital Signs 03/28/18 03/28/18 03/28/18 10:26 11:30 12:19 Temperature 97.5 F L Pulse Rate 100 93 Respiratory 18 18 Rate Blood Pressure 142/91 120/80 O2 Sat by Pulse 99 100 100 Oximetry 03/28/18 03/28/18 15:27 16:28 Temperature 98.6 F Pulse Rate 98 94 Respiratory 18 18 Rate Blood Pressure 126/82 122/87 O2 Sat by Pulse 100 98 Oximetry Medical Decision Making - Lab Data Result diagrams: 03/28/18 11:50 03/28/18 11:50 <Carlos Washburn - Last Filed: 03/28/18 15:59> - Lab Data Result diagrams: 03/28/18 11:50 03/28/18 11:50 - EKG Data -: EKG Interpreted by Pr (and dr morocho) <Manish Pineda - Last Filed: 03/28/18 20:54> - Medical Decision Making 62-year-old male with dyspnea, history of oropharyngeal cancer, status post tracheostomy. Patient's trach is patent, with suction in the emergency department with no blood, no malocclusion. CT is performed that shows improvement of oropharyngeal cancer cells, this is above the level of the tracheostomy. Airway is patent, trach is patent. I discussed case with Dr. Moeller who is familiar with this patient. It was felt at that this time the patient is stable for outpatient follow-up. I did feel anxiety may be a component of the patient's symptoms. (Carlos Washburn) 62-year-old male patient with past medical history of stage IV esophageal cancer currently receiving chemotherapy, patient has a tracheostomy as well as a PEG tube. Patient reports that he feels as if the mass in his esophagus is pushing on his tracheostomy tube as concerned that it may fall out. Pt denies all other complaints today. Patient vital signs stable. Physical exam displayed patent tracheostomy. O2 investigations revealed nonpresence of CBC, CMP, coagulation studies. Troponin negative. EKG not concerning for acute ischemia. Chest x-ray displayed no acute process. Ultrasound of head and neck is nondiagnostic. CT is performed that shows improvement of oropharyngeal cancer cells, this is above the level of the tracheostomy. Patient was seen by Dr. Morocho who discussed case with Dr. Carranza. Conjunctivae of the patient is stable for outpatient follow-up. Patient is agreeable with this plan. Patient edition follow-up with respective oncologist and primary care provider. Patient to return to ED if new signs symptoms develop or condition worsens in any way. Case discussed in depth and seen by Dr. Morocho. (Manish Pineda) - Lab Data Lab Results 03/28/18 03/28/18 03/28/18 Range/Units 11:50 11:50 11:50 WBC 10.9 H (3.8-10.6) k/uL RBC 4.64 (4.30-5.90) m/uL Hgb 14.0 (13.0-17.5) gm/dL Hct 42.4 (39.0-53.0) % MCV 91.4 (80.0-100.0) fL MCH 30.1 (25.0-35.0) pg MCHC 33.0 (31.0-37.0) g/dL RDW 14.2 (11.5-15.5) % Plt Count 379 (150-450) k/uL Neutrophils % 87 % Lymphocytes % 8 % Monocytes % 3 % Eosinophils % 2 % Basophils % 0 % Neutrophils # 9.5 H (1.3-7.7) k/uL Lymphocytes # 0.8 L (1.0-4.8) k/uL Monocytes # 0.3 (0-1.0) k/uL Eosinophils # 0.2 (0-0.7) k/uL Basophils # 0.0 (0-0.2) k/uL PT 10.1 (9.0-12.0) sec INR 0.9 (<1.2) APTT 24.9 (22.0-30.0) sec Sodium 140 (137-145) mmol/L Potassium 4.4 (3.5-5.1) mmol/L Chloride 104 (98-107) mmol/L Carbon Dioxide 26 (22-30) mmol/L Anion Gap 10 mmol/L BUN 17 (9-20) mg/dL Creatinine 0.58 L (0.66-1.25) mg/dL Est GFR (CKD-EPI)AfAm >90 (>60 ml/min/1.73 sqM) Est GFR (CKD-EPI)NonAf >90 (>60 ml/min/1.73 sqM) Glucose 114 H (74-99) mg/dL Calcium 9.9 (8.4-10.2) mg/dL Total Bilirubin 1.5 H (0.2-1.3) mg/dL AST 35 (17-59) U/L ALT 85 H (21-72) U/L Alkaline Phosphatase 101 (38-126) U/L Troponin I (0.000-0.034) ng/mL Total Protein 7.0 (6.3-8.2) g/dL Albumin 4.2 (3.5-5.0) g/dL 03/28/18 Range/Units 11:50 WBC (3.8-10.6) k/uL RBC (4.30-5.90) m/uL Hgb (13.0-17.5) gm/dL Hct (39.0-53.0) % MCV (80.0-100.0) fL MCH (25.0-35.0) pg MCHC (31.0-37.0) g/dL RDW (11.5-15.5) % Plt Count (150-450) k/uL Neutrophils % % Lymphocytes % % Monocytes % % Eosinophils % % Basophils % % Neutrophils # (1.3-7.7) k/uL Lymphocytes # (1.0-4.8) k/uL Monocytes # (0-1.0) k/uL Eosinophils # (0-0.7) k/uL Basophils # (0-0.2) k/uL PT (9.0-12.0) sec INR (<1.2) APTT (22.0-30.0) sec Sodium (137-145) mmol/L Potassium (3.5-5.1) mmol/L Chloride (98-107) mmol/L Carbon Dioxide (22-30) mmol/L Anion Gap mmol/L BUN (9-20) mg/dL Creatinine (0.66-1.25) mg/dL Est GFR (CKD-EPI)AfAm (>60 ml/min/1.73 sqM) Est GFR (CKD-EPI)NonAf (>60 ml/min/1.73 sqM) Glucose (74-99) mg/dL Calcium (8.4-10.2) mg/dL Total Bilirubin (0.2-1.3) mg/dL AST (17-59) U/L ALT (21-72) U/L Alkaline Phosphatase (38-126) U/L Troponin I <0.012 (0.000-0.034) ng/mL Total Protein (6.3-8.2) g/dL Albumin (3.5-5.0) g/dL - EKG Data EKG Comments: Ventricular rate 109, MS interval 142, QRS 80, QT/QTC 322/433. Sinus tachycardia, otherwise normal EKG. (Manish Pineda) Disposition <Carlos Washburn Carlos - Last Filed: 03/28/18 15:59> Is patient prescribed a controlled substance at d/c from ED?: No Time of Disposition: 16:03 <Manish Pineda - Last Filed: 03/28/18 20:54> Clinical Impression: Esophageal carcinoma Disposition: HOME SELF-CARE Condition: Stable Instructions (If sedation given, give patient instructions): Tracheostomy Care (ED), Tracheotomy (DC) Additional Instructions: Patient to adhere to previously discussed treatment plan and will take medication(s) as directed. Patient to follow up with PCP in 1-2 days. Patient to return to ED if symptoms do not improve. Please follow up with Dr. Velazquez tomorrow Please follow up with oncologist and pcp in 1-2 days Please return to ED if new signs or symptoms develop Referrals: Raphael Kaufman MD [Primary Care Provider] - 1-2 days Tonio Velazquez MD [STAFF PHYSICIAN] - 1-2 days
[2018-03-28 12:04] LABS: Basophils % (A) 0 %; Eosinophils # (A) 0.2 k/uL (0-0.7); Eosinophils % (A) 2 %; HCT 42.4 % (39.0-53.0); Lymphocytes # (A) 0.8 k/uL (1.0-4.8); Lymphocytes % (A) 8 %; MCH 30.1 pg (25.0-35.0); MCV 91.4 fL (80.0-100.0); Mean Platelet Volume 7.9; Monocytes # (A) 0.3 k/uL (0-1.0); Monocytes % (A) 3 %; Neutrophils # (A) 9.5 k/uL (1.3-7.7); Neutrophils % (A) 87 %; Platelet Count 379 k/uL (150-450); RBC 4.64 m/uL (4.30-5.90); RDW 14.2 % (11.5-15.5); WBC 10.9 k/uL (3.8-10.6)
[2018-03-28 12:14] LABS: ALT 85 U/L (21-72); AST 35 U/L (17-59); Albumin 4.2 g/dL (3.5-5.0); Alkaline Phosphatase 101 U/L (38-126); Anion Gap 10 mmol/L; Blood Urea Nitrogen 17 mg/dL (9-20); Calcium 9.9 mg/dL (8.4-10.2); Carbon Dioxide 26 mmol/L (22-30); Chloride 104 mmol/L (98-107); Glucose 114 mg/dL (74-99); Potassium 4.4 mmol/L (3.5-5.1); Sodium 140 mmol/L (137-145); Total Bilirubin 1.5 mg/dL (0.2-1.3)
[2018-03-28 12:15] LABS: INR 0.9 (<1.2); Partial Thromboplastin Time 24.9 sec (22.0-30.0); Prothrombin Time 10.1 sec (9.0-12.0)
--- NOTE | 2018-03-28 12:52 | XR ---
EXAMINATION TYPE: XR chest 2V DATE OF EXAM: 03/28/2018 COMPARISON: 02/22/2018 INDICATION: Difficulty breathing TECHNIQUE: Frontal and lateral views of the chest are obtained. FINDINGS: The heart size is normal. The pulmonary vasculature is normal. The lungs are clear. Tracheostomy tube is in the midline. No significant interval changes evident. IMPRESSION: 1. No acute pulmonary process.
--- NOTE | 2018-03-28 13:00 | CT ---
EXAMINATION TYPE: CT soft tissue neck w con DATE OF EXAM: 03/28/2018 HISTORY: Pt feels mass behind tracheostomy, IMANI, history of throat CA COMPARISON: 02/20/2018 CT DLP: 220.5 mGycm. Automated Exposure Control for Dose Reduction was Utilized. TECHNIQUE: CT scan of the neck is performed with IV Contrast, patient injected with 100 mL of Isovue 300, axial images are obtained, coronal and sagittal reformatted images are reviewed. FINDINGS: Airway: The tracheostomy creates spray artifact and obscures visualization posterior to the tracheost bree with the patient feels a mass. Tracheostomy terminates above the francisca and is appropriately plac ed. The previously seen large oropharyngeal mass appears to have been surgically resected in the interim. There is irregularity and contour of the right oropharynx at the level of the uvula bilaterally that may represent residual mass or granulation tissue. Follow-up PET/CT could further evaluate this find ing. Parotid/submandibular glands: No gross abnormality seen. Carotid/Vascular Structures: No hemodynamically significant stenosis is seen of the carotid or verteb ral vasculature of the neck. Left vertebral artery is dominant. Osseous Structures: Moderate multilevel degenerative changes of the cervical spine are noted. Paranas al sinuses are well aerated. Other: Thyroid gland is enlarged and heterogenous. Mild centrilobular and paraseptal emphysematous ch anges are seen of the lung apices. Pathologic adenopathy is seen within the right neck posterior to the sternocleidomastoid at the level of the hyoid measuring 1.0 cm in short axis and posterior to the sternocleidomastoid at the level of angle of mandible measuring 1.4 cm in short axis as well as at the level of the thyroid measuring 1. 3 cm in short axis. IMPRESSION: 1. In the location of the patient's stated mass posterior to the tracheostomy there is extensive spra y artifact created from the tracheostomy and exam is nondiagnostic at this location. Ultrasound could be attempted to be performed. The enlarged and heterogenous thyroid gland is seen posterior to the t racheostomy. 2. There appears to be interval surgical resection of the patient's known oropharyngeal carcinoma how ever irregular contour of the oropharynx at the level of the uvula is seen and may represent granulat ion tissue or residual mass. Follow-up PET CT as clinically indicated. 3. Pathologic right cervical chain adenopathy from the level of the mandible to the level of the thyr oid gland.
[2018-03-28] MEDS ORDERED: MORPHINE SULFATE 4 MG/ML SYRINGE IV STA (14:42)
[2018-03-28] MEDS ORDERED: LORazepam 2 MG/ML INJ IV STA (14:42)
--- NOTE | 2018-03-28 14:46 | US ---
EXAMINATION TYPE: US thyroid st tissue head/neck DATE OF EXAM: 03/28/2018 COMPARISON: CT CLINICAL HISTORY: Pain. Patient states feeling pressure at trache tube. Attempted visualization of trache tube area. Unable to sonographically see abnormality of patient ar ea of complaint due to trache tube base and bone structures. IMPRESSION: 1. Ultrasound is nondiagnostic.
[2018-03-28] MEDS ORDERED: HYDROcodone/APAP 7.5-325MG 1 EACH TAB PO ONE (14:54)
[2018-03-28 16:29] VITALS: BP 122/87; PULSE 94; TEMP 98.6
== END 2018-03-28 16:27 | disposition home or self-care (01) ==
LOC: EC 10:25
DX: C15.9 Malignant neoplasm of esophagus, unspecified (principal); R00.0 Tachycardia, unspecified; Z93.0 Tracheostomy status; Z93.1 Gastrostomy status; Z92.21 Personal history of antineoplastic chemotherapy; Z87.891 Personal history of nicotine dependence; Z79.891 Long term (current) use of opiate analgesic; Z79.899 Other long term (current) drug therapy; Z53.8 Procedure and treatment not carried out for other reasons
CPT/HCPCS: 36415; 93005; 36410; 76937; 80053; 84484; 85025; 85610; 85730; 71046; 76536; 70491; 99285; 96374; 96375; 96361; J2060; J1100; Q9967

== ENCOUNTER 2018-03-30 11:20 | Inpatient (IN) | payer OTHER ==
[2018-03-30] MEDS ORDERED: SODIUM CHLORIDE 0.9% 1,000 ML IV STA ×2 (12:06→13:57)
[2018-03-30] MEDS ORDERED: LORazepam 2 MG/ML INJ IV STA (12:21)
[2018-03-30] MEDS ORDERED: MORPHINE SULFATE 4 MG/ML SYRINGE IVP STA (12:23)
[2018-03-30 12:47] LABS: Basophils % (A) 0 %; Eosinophils # (A) 0.3 k/uL (0-0.7); Eosinophils % (A) 3 %; HCT 42.3 % (39.0-53.0); HGB 14.6 gm/dL (13.0-17.5); Lymphocytes # (A) 0.9 k/uL (1.0-4.8); Lymphocytes % (A) 10 %; MCH 31.1 pg (25.0-35.0); MCHC 34.5 g/dL (31.0-37.0); Mean Platelet Volume 8.2; Monocytes # (A) 0.2 k/uL (0-1.0); Monocytes % (A) 2 %; Neutrophils # (A) 7.6 k/uL (1.3-7.7); Neutrophils % (A) 84 %; Platelet Count 355 k/uL (150-450); WBC 9.1 k/uL (3.8-10.6)
[2018-03-30 12:54] LABS: ALT 69 U/L (21-72); AST 35 U/L (17-59); Albumin 4.3 g/dL (3.5-5.0); Alkaline Phosphatase 102 U/L (38-126); Amylase 118 U/L (30-110); Anion Gap 12 mmol/L; Blood Urea Nitrogen 19 mg/dL (9-20); Calcium 10.2 mg/dL (8.4-10.2); Carbon Dioxide 23 mmol/L (22-30); Chloride 107 mmol/L (98-107); Glucose 105 mg/dL (74-99); Lipase 177 U/L (23-300); Potassium 4.6 mmol/L (3.5-5.1); Sodium 142 mmol/L (137-145); Total Protein 7.3 g/dL (6.3-8.2)
--- NOTE | 2018-03-30 12:55 | ED ---
General Adult HPI <Delon Treviño - Last Filed: 03/30/18 15:34> - General Source: patient, EMS Mode of arrival: EMS <Gris Sosa - Last Filed: 03/30/18 18:39> - General Chief complaint: Abdominal Pain Stated complaint: abd pain Time Seen by Provider: 03/30/18 12:04 - History of Present Illness Initial comments: 63-year-old male with recent diagnosis of throat cancer with trach in place as well as headache 2. Presents today for chief complaint of abdominal pain x 1 day. Family states patient told him last night he was vomiting and having diarrhea last night throughout the course of the night and complaining of abdominal pain. She denies any melena, hematochezia or hematemesis. She is unable to localize a dull pain, stating it is diffuse. Patient denies any radiation of pain. Eyes having experienced this in the past. Familed stated they did note a small amount of redness and discharge from the PEG tube, deny dysfunction. Pt PEG tube was placed by Dr. García. Patient was evaluated 2 days prior for PEG tube placement and difficulty breathing. Patient states when patient's anxiety appears high and he has not taken his medication he appear short of breath, however when he does take his medication he appears comfortable. Patient states that since discharge patient has not been complaining of shortness of breath however this new complaint of abdominal pain nausea, vomiting and diarrhea. Patient is due for chemotherapy on Sunday. Patient uses board, nodding and shaking head to answer review of systems, denies any other positive, patient denies any recent fever, chills, chest pain, back pain, numbness or tingling, dysuria or hematuria, headaches or visual changes, or any other complaints. Upon arrival pt appears uncomfortable. HR elevated. (Gris Sosa) - Related Data Home Medications Medication Instructions Recorded Confirmed HYDROcodone/APAP 5-325MG [[place] 1 - 2 tab PO Q4H PRN 02/20/18 03/30/18 5-325] Hyoscyamine Sulfate [Levsin-Sl] 0.125 mg SUBLINGUAL Q4H 02/20/18 03/30/18 fentaNYL 25MCG/HR PATCH [Duragesic 1 patch TRANSDERM Q72H 02/20/18 03/30/18 25MCG/HR] LORazepam [Ativan] 1 mg PO TID PRN 03/04/18 03/30/18 Pantoprazole [Protonix] 40 mg PO DAILY 03/04/18 03/30/18 Previous Rx's Medication Instructions Recorded Loratadine [Claritin] 10 mg PO DAILY PRN #30 tab 11/20/17 Ondansetron HCl [Zofran] 4 mg PO Q6HR PRN #20 tablet 11/26/17 Allergies Allergy/AdvReac Type Severity Reaction Status Date / Time No Known Allergies Allergy Verified 03/30/18 14:53 Review of Systems ROS Other: All systems not noted in ROS Statement are negative. <Delon Treviño - Last Filed: 03/30/18 15:34> ROS Other: All systems not noted in ROS Statement are negative. <Gris Sosa - Last Filed: 03/30/18 18:39> ROS Statement: Those systems with pertinent positive or pertinent negative responses have been documented in the HPI. Past Medical History Past Medical History: Cancer Additional Past Medical History / Comment(s): throat cancer History of Any Multi-Drug Resistant Organisms: None Reported Past Surgical History: No Surgical Hx Reported Additional Past Surgical History / Comment(s): tracheostomy, and PEG tube Past Anesthesia/Blood Transfusion Reactions: No Reported Reaction Past Psychological History: Anxiety Smoking Status: Former smoker Past Alcohol Use History: None Reported Past Drug Use History: None Reported - Past Family History Father Family Medical History: Cancer Additional Family Medical History / Comment(s): prostate cancer that spread to the brain Mother Family Medical History: Cancer Additional Family Medical History / Comment(s): ovarian cancer Sister(s) Family Medical History: Cancer Additional Family Medical History / Comment(s): breast cancer <Gris Sosa - Last Filed: 03/30/18 18:39> General Exam <Delon Treviño - Last Filed: 03/30/18 15:34> <Gris Sosa - Last Filed: 03/30/18 18:39> - General Exam Comments Initial Comments: General: The patient is awake and alert, in no distress, and does not appear acutely ill. Eye: +3 mm pupils are equal, round and reactive to light, extra-ocular movements are intact. No nystagmus. There is normal conjunctiva bilaterally. No signs of icterus. Ears, nose, mouth and throat: There are moist mucous membranes and no oral lesions. Neck: The neck is supple, trachea in place. No evidence of redness or drainage. Cardiovascular: There is a regular rate and rhythm. No murmur, rub or gallop is appreciated. Respiratory: Lungs are clear to auscultation,breath sounds are equal. No wheezes, stridor, rales, or rhonchi. Pt does appear short of breath, mildly labored. Gastrointestinal: No noted diaphoresis, jaundice, pallor, protecting postures or squirming. Symmetrical pigmentation of abdomen without signs of inflammation. PEG tube in place small amount of yellowish discharge near site, mild erythema.. Umbilicus mildline, inverted without swelling. No dilated veins. Abdomen no noted abdominal distention. No visible masses. No peristalsis, aortic pulsations, or ventral hernia. Bowel sounds audible in all 4 quadrants, unremarkable. Patient diffusely tender to palpation. However no rigidity or guarding. Liver edge, not palpable. Spleen edge, right and left kidney not palpable. Superior bladder margin non-tender. Special Testing: Negative Humphreys, Rovsing, McBurney, Scarlett, cutaneous hyperesthesia. Iliopsoas and obturator tests negative bilaterally. (+) heel jar.. No CVA tenderness. Negative leo turners or cullens sign Musculoskeletal: Normal ROM, no tenderness. Strength 5/5. Sensation intact. Radial pulses equal bilaterally 2+. Neurological: A&O x 3. CN II-XII intact, There are no obvious motor or sensory deficits. Coordination appears grossly intact. Unable to speak clearly due to trach. Skin: Skin is warm and dry and no rashes or lesions are noted. Psychiatric: Cooperative, appropriate mood & affect, normal judgment. (Gris Sosa) Course <Delon Treviño - Last Filed: 03/30/18 15:34> <Gris Sosa - Last Filed: 03/30/18 18:39> Vital Signs 03/30/18 03/30/18 03/30/18 11:22 14:28 16:00 Temperature 97.3 F L 97.7 F Pulse Rate 107 H 82 Pulse Rate [ 76 Left Sitting Brachial] Respiratory 24 16 16 Rate Blood Pressure 127/89 121/79 Blood Pressure 121/79 [Left Arm Sitting] O2 Sat by Pulse 100 100 100 Oximetry 03/30/18 16:14 Temperature Pulse Rate 86 Pulse Rate [ Left Sitting Brachial] Respiratory 20 Rate Blood Pressure 130/77 Blood Pressure [Left Arm Sitting] O2 Sat by Pulse 100 Oximetry - Reevaluation(s) Reevaluation #1: 03/30/18 13:56 Patient reevaluated by myself, Dr. Treviño. Abdomen is soft, nondistended. Nonrigid. There is mild tenderness more so to the lower abdomen. Patient and family updated. Patient does have history of mouth cancer. There has been no involvement known of the abdomen. Patient does not have a regular surgeon that he sees. Case was discussed in detail with Dr. العلي, who will assess patient. She does recommend IV fluid resuscitation and antibiotics such as Zosyn. Dr. Kaufman has been paged. 03/30/18 15:14 Call again received from Dr. العلي who did notice if patient has previously seen Dr. Cespedes and recommend calling him. Case was discussed with Dr. Cespedes stated that Dr. brar is on-call and recommends calling him. Case was discussed with Dr. brar who is in the OR and defers the case to surgical on- call. 03/30/18 15:35 Case was again discussed with Dr. العلي who did come evaluate patient. ( Delon Treviño) Procedures - Sepsis Sepsis Focused Exam #1 Time Sepsis Criteria Met: 13:55 Sepsis Focused Exam Date: 03/30/18 Sepsis Focused Exam Time: 14:00 Sepsis Focused Exam Complete: Yes Vital Signs & RN Notes Reviewed: Yes Capillary Refill: < 2 Seconds: Fingers, Toes Peripheral Pulses: Normal: Radial (R), Radial (L) Skin Color: Normal for Patient Respiratory Exam: normal lung sounds Cardiovascular Exam: tachycardia <Delon Treviño - Last Filed: 03/30/18 15:34> Medical Decision Making - Lab Data Result diagrams: 03/30/18 11:42 03/30/18 11:42 <Delon Treviño - Last Filed: 03/30/18 15:34> - Lab Data Result diagrams: 03/30/18 11:42 03/30/18 11:42 <Gris Sosa - Last Filed: 03/30/18 18:39> - Medical Decision Making 63-year-old male presenting for abdominal pain nausea vomiting diarrhea. Laboratory values revealed elevated lactic acid of 4.5 patient was given IV hydration. Patient's abdominal pain concerning for acute abdomen, patient received CT abdomen and pelvis with contrast revealing findings concerning for pneumoperitoneum with possible pneumatosis, and free air was noted. In addition patient had complaints of shortness of breath and was tachycardic with history of cancer concerned for possibility of pulmonary and was on, patient received CT angiogram which revealed (-) study for PE. Surgery was consulted recommended starting patient on zosyn. Patient is NPO with peg and was give IV hydration. At this time feel patient is stable, patient will be admitted to the floor with medicine consult. Hemonc will be on consult as patient has active cancer with current chemotherapy regime. Pt admitted to the floor in stable condition, appearing comfortable with improvement of abdominal pain. ( Gris Sosa) - Lab Data Lab Results 03/30/18 03/30/18 03/30/18 Range/Units 11:42 11:42 11:42 WBC 9.1 (3.8-10.6) k/uL RBC 4.70 (4.30-5.90) m/uL Hgb 14.6 (13.0-17.5) gm/dL Hct 42.3 (39.0-53.0) % MCV 90.0 (80.0-100.0) fL MCH 31.1 (25.0-35.0) pg MCHC 34.5 (31.0-37.0) g/dL RDW 14.0 (11.5-15.5) % Plt Count 355 (150-450) k/uL Neutrophils % 84 % Lymphocytes % 10 % Monocytes % 2 % Eosinophils % 3 % Basophils % 0 % Neutrophils # 7.6 (1.3-7.7) k/uL Lymphocytes # 0.9 L (1.0-4.8) k/uL Monocytes # 0.2 (0-1.0) k/uL Eosinophils # 0.3 (0-0.7) k/uL Basophils # 0.0 (0-0.2) k/uL PT (9.0-12.0) sec INR (<1.2) APTT (22.0-30.0) sec Sodium 142 (137-145) mmol/L Potassium 4.6 (3.5-5.1) mmol/L Chloride 107 (98-107) mmol/L Carbon Dioxide 23 (22-30) mmol/L Anion Gap 12 mmol/L BUN 19 (9-20) mg/dL Creatinine 0.50 L (0.66-1.25) mg/dL Est GFR (CKD-EPI)AfAm >90 (>60 ml/min/1.73 sqM) Est GFR (CKD-EPI)NonAf >90 (>60 ml/min/1.73 sqM) Glucose 105 H (74-99) mg/dL Lactic Ac Sepsis Rflx Plasma Lactic Acid Sherman 4.7 H* (0.7-2.0) mmol/L Calcium 10.2 (8.4-10.2) mg/dL Total Bilirubin 3.0 H (0.2-1.3) mg/dL AST 35 (17-59) U/L ALT 69 (21-72) U/L Alkaline Phosphatase 102 (38-126) U/L Troponin I (0.000-0.034) ng/mL Total Protein 7.3 (6.3-8.2) g/dL Albumin 4.3 (3.5-5.0) g/dL Amylase 118 H (30-110) U/L Lipase 177 (23-300) U/L Urine Color Urine Appearance (Clear) Urine pH (5.0-8.0) Ur Specific [place] (1.001-1.035) Urine Protein (Negative) Urine Glucose (UA) (Negative) Urine Ketones (Negative) Urine Blood (Negative) Urine Nitrite (Negative) Urine Bilirubin (Negative) Urine Urobilinogen (<2.0) mg/dL Ur Leukocyte Esterase (Negative) Urine RBC (0-5) /hpf Urine WBC (0-5) /hpf Amorphous Sediment (None) /hpf 03/30/18 03/30/18 03/30/18 Range/Units 11:42 11:42 13:00 WBC (3.8-10.6) k/uL RBC (4.30-5.90) m/uL Hgb (13.0-17.5) gm/dL Hct (39.0-53.0) % MCV (80.0-100.0) fL MCH (25.0-35.0) pg MCHC (31.0-37.0) g/dL RDW (11.5-15.5) % Plt Count (150-450) k/uL Neutrophils % % Lymphocytes % % Monocytes % % Eosinophils % % Basophils % % Neutrophils # (1.3-7.7) k/uL Lymphocytes # (1.0-4.8) k/uL Monocytes # (0-1.0) k/uL Eosinophils # (0-0.7) k/uL Basophils # (0-0.2) k/uL PT 10.2 (9.0-12.0) sec INR 0.9 (<1.2) APTT 25.0 (22.0-30.0) sec Sodium (137-145) mmol/L Potassium (3.5-5.1) mmol/L Chloride (98-107) mmol/L Carbon Dioxide (22-30) mmol/L Anion Gap mmol/L BUN (9-20) mg/dL Creatinine (0.66-1.25) mg/dL Est GFR (CKD-EPI)AfAm (>60 ml/min/1.73 sqM) Est GFR (CKD-EPI)NonAf (>60 ml/min/1.73 sqM) Glucose (74-99) mg/dL Lactic Ac Sepsis Rflx Plasma Lactic Acid Sherman (0.7-2.0) mmol/L Calcium (8.4-10.2) mg/dL Total Bilirubin (0.2-1.3) mg/dL AST (17-59) U/L ALT (21-72) U/L Alkaline Phosphatase (38-126) U/L Troponin I <0.012 (0.000-0.034) ng/mL Total Protein (6.3-8.2) g/dL Albumin (3.5-5.0) g/dL Amylase (30-110) U/L Lipase (23-300) U/L Urine Color Yellow Urine Appearance Turbid (Clear) Urine pH 7.5 (5.0-8.0) Ur Specific [place] 1.014 (1.001-1.035) Urine Protein Trace H (Negative) Urine Glucose (UA) Negative (Negative) Urine Ketones Negative (Negative) Urine Blood Negative (Negative) Urine Nitrite Negative (Negative) Urine Bilirubin Negative (Negative) Urine Urobilinogen 2.0 (<2.0) mg/dL Ur Leukocyte Esterase Negative (Negative) Urine RBC 4 (0-5) /hpf Urine WBC 5 (0-5) /hpf Amorphous Sediment Occasional H (None) /hpf 03/30/18 Range/Units 13:06 WBC (3.8-10.6) k/uL RBC (4.30-5.90) m/uL Hgb (13.0-17.5) gm/dL Hct (39.0-53.0) % MCV (80.0-100.0) fL MCH (25.0-35.0) pg MCHC (31.0-37.0) g/dL RDW (11.5-15.5) % Plt Count (150-450) k/uL Neutrophils % % Lymphocytes % % Monocytes % % Eosinophils % % Basophils % % Neutrophils # (1.3-7.7) k/uL Lymphocytes # (1.0-4.8) k/uL Monocytes # (0-1.0) k/uL Eosinophils # (0-0.7) k/uL Basophils # (0-0.2) k/uL PT (9.0-12.0) sec INR (<1.2) APTT (22.0-30.0) sec Sodium (137-145) mmol/L Potassium (3.5-5.1) mmol/L Chloride (98-107) mmol/L Carbon Dioxide (22-30) mmol/L Anion Gap mmol/L BUN (9-20) mg/dL Creatinine (0.66-1.25) mg/dL Est GFR (CKD-EPI)AfAm (>60 ml/min/1.73 sqM) Est GFR (CKD-EPI)NonAf (>60 ml/min/1.73 sqM) Glucose (74-99) mg/dL Lactic Ac Sepsis Rflx Y Plasma Lactic Acid [place] (0.7-2.0) mmol/L Calcium (8.4-10.2) mg/dL Total Bilirubin (0.2-1.3) mg/dL AST (17-59) U/L ALT (21-72) U/L Alkaline Phosphatase (38-126) U/L Troponin I (0.000-0.034) ng/mL Total Protein (6.3-8.2) g/dL Albumin (3.5-5.0) g/dL Amylase (30-110) U/L Lipase (23-300) U/L Urine Color Urine Appearance (Clear) Urine pH (5.0-8.0) Ur Specific [place] (1.001-1.035) Urine Protein (Negative) Urine Glucose (UA) (Negative) Urine Ketones (Negative) Urine Blood (Negative) Urine Nitrite (Negative) Urine Bilirubin (Negative) Urine Urobilinogen (<2.0) mg/dL Ur Leukocyte Esterase (Negative) Urine RBC (0-5) /hpf Urine WBC (0-5) /hpf Amorphous Sediment (None) /hpf Disposition <Delon Treviño - Last Filed: 03/30/18 15:34> Is patient prescribed a controlled substance at d/c from ED?: No Time of Disposition: 14:24 Decision to Admit Reason: Admit from EC Decision Date: 03/30/18 Decision Time: 14:25 <Gris Sosa - Last Filed: 03/30/18 18:39> Clinical Impression: Pneumatosis intestinalis of large intestine, Lactic acidosis, Large bowel ischemia Disposition: ADMITTED IP TO THIS HOSP Condition: Critical
[2018-03-30 12:58] LABS: INR 0.9 (<1.2); Prothrombin Time 10.2 sec (9.0-12.0)
[2018-03-30 13:19] LABS: Amorphous Sediment,Urine Occasional /hpf; Appearance,Urine Turbid (Clear); Bilirubin,Urine Negative (Negative); Blood,Urine Negative (Negative); Color,Urine Yellow; Glucose,Urine (UA) Negative (Negative); Ketones,Urine Negative (Negative); Leukocyte Esterase,Urine Negative (Negative); Nitrite,Urine Negative (Negative); PH, Urine 7.5 (5.0-8.0); Protein,Urine Trace (Negative); RBC,Urine 4 /hpf (0-5); Specific Gravity,Urine 1.014 (1.001-1.035); WBC,Urine 5 /hpf (0-5)
--- NOTE | 2018-03-30 13:37 | CT ---
EXAMINATION TYPE: CT angio chest DATE OF EXAM: 03/30/2018 COMPARISON: HISTORY: elevated ddimer CT DLP: 518.8 mGycm CONTRAST: CT chest with contrast and 3D reconstruction with MIP imaging is performed with IV Contrast, patient injected with 100 mL of Isovue 370. Contrast-enhanced CT of the chest was performed through the course of the pulmonary arteries with drake g and mediastinal window settings submitted. 3D reconstruction with MIP imaging was also performed. PULMONARY ARTERIES: The pulmonary arteries and their major tributaries are patent. I do not see jocelyne dence for sizable filling defect to suggest pulmonary embolic process. LUNGS: The lungs are clear and free of infiltrate. No evidence for atelectasis. No pulmonary nodule or mass is detected. No pleural effusion. Emphysematous changes noted. Tracheostomy tube identifie d. MEDIASTINUM: Thoracic aorta is of normal caliber.The heart is not enlarged. No evidence for mediast inal mass. No mediastinal lymph nodes greater than 1cm. HILAR STRUCTURES: No evidence for mass. No hilar lymph nodes greater than 1 cm. UPPER ABDOMEN: No significant abnormality is seen. IMPRESSION: 1. No evidence for Pulmonary embolism at this time.
--- NOTE | 2018-03-30 13:43 | CT ---
EXAMINATION TYPE: CT abdomen pelvis w con DATE OF EXAM: 03/30/2018 COMPARISON: HISTORY: Abd pain CT DLP: 357.6 mGycm CONTRAST: CT scan of the abdomen and pelvis is performed without Oral Contrast and with IV Contrast, patient in jected with 100 mL of Isovue 300. FINDINGS: LUNG BASES-: No visible nodule. No infiltrate. LIVER/GB: No calcified gallstones. No space occupying hepatic lesion. Biliary tree is of normal ca liber. PANCREAS: No inflammation. No distinct mass. SPLEEN: No splenic enlargement. No lesion seen. ADRENALS: No nodule. No thickening. KIDNEYS/BLADDER: No hydronephrosis. No nephrolithiasis. No distinct renal mass. Urinary bladder ca lcification noted measuring 1.7 cm BOWEL: There is evidence of pneumoperitoneum. There appears to be pneumatosis within the right hemico carrie. Correlate for possible ischemic/ infarcted bowel. There is evidence of a PEG tube. Small bowel i leus noted. No inflammation. Normal-appearing appendix. GENITAL ORGANS: No gross abnormality. LYMPH NODES: No greater than 1cm abdominal or pelvic lymph nodes are appreciated. AORTA: No significant abnormality. OSSEOUS STRUCTURES: Degenerative changes lumbar spine. OTHER: No significant additional abnormality is seen. IMPRESSION: 1. There is evidence of pneumoperitoneum. There appears to be pneumatosis within the right hemicolon. Correlate for possible ischemic/ infarcted bowel. Discussed with ER staff at the time of interpretation.
[2018-03-30] MEDS ORDERED: SODIUM CHLORIDE 0.9% 500 ML 500 ML IV STA (13:59)
[2018-03-30] MEDS ORDERED: NALOXONE 0.4 MG/ML 1 ML VIAL IV PRN (14:29)
--- NOTE | 2018-03-30 15:59 | P.GSCN ---
History of Present Illness Consult date: 03/30/18 History of present illness: CHIEF COMPLAINT: Abdominal pain HISTORY OF PRESENT ILLNESS: The patient is a 63-year-old male who was recently seen in the emergency room on , 3 days ago as he complains of moderate secretions along his tracheostomy. 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 He had triple upper endoscopy including awake tracheostomy placed by Dr. Westbrook 11/22/2017. He is 4 months out. He has seen oncologist Dr. Barron. He presents today with vague right upper quadrant abdominal pain. CT of the chest including abdomen and pelvis is consistent with localized pneumoperitoneum involving the right colon. No reports of fevers or chills. No peritonitis. His main concern includes increased secretions along his metal tracheostomy. His reports that prior to his diagnosis, he had not seen a doctor any denies any abdominal surgeries with exception of placement of the PEG tube. PAST MEDICAL HISTORY: See list. PAST SURGICAL HISTORY: See list. MEDICATIONS: See list. ALLERGIES: See list. SOCIAL HISTORY: No illicit drug use FAMILY HISTORY: No reports of Crohn's disease or inflammatory bowel disease REVIEW OF ORGAN SYSTEMS: CONSTITUTIONAL: No fevers or chills HEENT: Has trouble swallowing. History of pharyngeal mass including oral pharyngeal cancer. ENDOCRINE: No reports of thyroid disorders. No diabetes. CARDIOVASCULAR: No heart attack. No chest pain. Last EKG 03/28/2018 demonstrates sinus bradycardia RESPIRATORY: No shortness of breath or pneumonia. GASTROINTESTINAL: No reports of recent blood in stools. History of gastroesophageal reflux disease NEURO: No reports of stroke or seizure disorders. PSYCH: No depression or suicidal ideation. Has anxiety HEMATOLOGIC: No easy bruising or bleeding LYMPHATIC: The patient denies any lumps and bumps around the neck. GENITOURINARY: Denies any blood in urine or increased urinary frequency. MUSCULOSKELETAL: Denies back pain, stiffness or joint arthritis. SKIN: No skin cancer or rash. PHYSICAL EXAM: VITAL SIGNS: Reviewed GENERAL: Well-developed in no acute distress. Nontoxic in appearance. HEENT: No sclera icterus. Extraocular movements grossly intact. Moist buccal mucosa. Head is atraumatic, normocephalic. Hears conversational speech. No nasal drainage. NECK: Metal tracheostomy tube with secretions. No cellulitis. CHEST: Non-labored respirations and equal bilateral excursions. CARDIOVASCULAR: Regular rate with regular rhythm. Palpable 2+ radial pulses. ABDOMEN: Soft. Nondistended. No peritonitis. Minimal right upper quadrant tenderness. No abdominal wall cellulitis. PEG tube intact left upper abdomen. MUSCULOSKELETAL: No clubbing, cyanosis or edema. NEUROLOGIC: No focal or lateralizing signs. Cranial nerves II through XII grossly intact. PSYCH: Appropriate affect. Alert and oriented to person, place and time. SKIN: Well perfused. Good skin turgor. LABS: Reviewed STUDIES: Reviewed ASSESSMENT: 1. Abnormal computed tomography scan 2. Abdominal pain 3. Pneumatosis, right colon 4. Oropharyngeal cancer 5. PEG tube status PLAN: 1. Surgical intervention with exploratory laparotomy right hemicolectomy possible ostomy was described to the patient and family. 2. IV fluid hydration for elevated lactic acidosis 3. IV antibiotics 4. DVT prophylaxis 5. Consultation to ENT for history of metal tracheostomy including complications per patient 6. EKG review demonstrated sinus bradycardia. Patient reports 2 separate procedures within the last 4 months without sequelae following surgery 7. Continue nothing by mouth status 8. Agree with oncology consultation with history of oropharyngeal cancer Thank you for this kind consultation. Past Medical History Past Medical History: Cancer Additional Past Medical History / Comment(s): throat cancer History of Any Multi-Drug Resistant Organisms: None Reported Past Surgical History: No Surgical Hx Reported Additional Past Surgical History / Comment(s): tracheostomy, and PEG tube Past Anesthesia/Blood Transfusion Reactions: No Reported Reaction Past Psychological History: Anxiety Smoking Status: Former smoker Past Alcohol Use History: None Reported Past Drug Use History: None Reported - Past Family History Father Family Medical History: Cancer Additional Family Medical History / Comment(s): prostate cancer that spread to the brain Mother Family Medical History: Cancer Additional Family Medical History / Comment(s): ovarian cancer Sister(s) Family Medical History: Cancer Additional Family Medical History / Comment(s): breast cancer Medications and Allergies Home Medications Medication Instructions Recorded Confirmed Type Loratadine [Claritin] 10 mg PO DAILY PRN #30 tab 11/20/17 03/30/18 Rx Ondansetron HCl [Zofran] 4 mg PO Q6HR PRN #20 tablet 11/26/17 03/30/18 Rx HYDROcodone/APAP 5-325MG [[place] 1 - 2 tab PO Q4H PRN 02/20/18 03/30/18 History 5-325] Hyoscyamine Sulfate [Levsin-Sl] 0.125 mg SUBLINGUAL Q4H 02/20/18 03/30/18 History fentaNYL 25MCG/HR PATCH [Duragesic 1 patch TRANSDERM Q72H 02/20/18 03/30/18 History 25MCG/HR] LORazepam [Ativan] 1 mg PO TID PRN 03/04/18 03/30/18 History Pantoprazole [Protonix] 40 mg PO DAILY 03/04/18 03/30/18 History Allergies Allergy/AdvReac Type Severity Reaction Status Date / Time No Known Allergies Allergy Verified 03/30/18 14:53 Surgical - Exam Vital Signs Temp Pulse Resp BP Pulse Ox 97.3 F L 107 H 24 127/89 100 03/30/18 11:22 03/30/18 11:22 03/30/18 11:22 03/30/18 11:22 03/30/18 11:22 Results - Labs 03/30/18 11:42 03/30/18 11:42 Abnormal Lab Results - Last 24 Hours (Table) 03/30/18 03/30/18 03/30/18 Range/Units 11:42 11:42 11:42 Lymphocytes # 0.9 L (1.0-4.8) k/uL Creatinine 0.50 L (0.66-1.25) mg/dL Glucose 105 H (74-99) mg/dL Plasma Lactic Acid Sherman 4.7 H* (0.7-2.0) mmol/L Total Bilirubin 3.0 H (0.2-1.3) mg/dL Amylase 118 H (30-110) U/L Urine Protein (Negative) Amorphous Sediment (None) /hpf 03/30/18 Range/Units 13:00 Lymphocytes # (1.0-4.8) k/uL Creatinine (0.66-1.25) mg/dL Glucose (74-99) mg/dL Plasma Lactic Acid Sherman (0.7-2.0) mmol/L Total Bilirubin (0.2-1.3) mg/dL Amylase (30-110) U/L Urine Protein Trace H (Negative) Amorphous Sediment Occasional H (None) /hpf Diabetes panel 03/30/18 Range/Units 11:42 Sodium 142 (137-145) mmol/L Potassium 4.6 (3.5-5.1) mmol/L Chloride 107 (98-107) mmol/L Carbon Dioxide 23 (22-30) mmol/L BUN 19 (9-20) mg/dL Creatinine 0.50 L (0.66-1.25) mg/dL Glucose 105 H (74-99) mg/dL Calcium 10.2 (8.4-10.2) mg/dL AST 35 (17-59) U/L ALT 69 (21-72) U/L Alkaline Phosphatase 102 (38-126) U/L Total Protein 7.3 (6.3-8.2) g/dL Albumin 4.3 (3.5-5.0) g/dL Calcium panel 03/30/18 Range/Units 11:42 Calcium 10.2 (8.4-10.2) mg/dL Albumin 4.3 (3.5-5.0) g/dL Pituitary panel 03/30/18 Range/Units 11:42 Sodium 142 (137-145) mmol/L Potassium 4.6 (3.5-5.1) mmol/L Chloride 107 (98-107) mmol/L Carbon Dioxide 23 (22-30) mmol/L BUN 19 (9-20) mg/dL Creatinine 0.50 L (0.66-1.25) mg/dL Glucose 105 H (74-99) mg/dL Calcium 10.2 (8.4-10.2) mg/dL Adrenal panel 03/30/18 Range/Units 11:42 Sodium 142 (137-145) mmol/L Potassium 4.6 (3.5-5.1) mmol/L Chloride 107 (98-107) mmol/L Carbon Dioxide 23 (22-30) mmol/L BUN 19 (9-20) mg/dL Creatinine 0.50 L (0.66-1.25) mg/dL Glucose 105 H (74-99) mg/dL Calcium 10.2 (8.4-10.2) mg/dL Total Bilirubin 3.0 H (0.2-1.3) mg/dL AST 35 (17-59) U/L ALT 69 (21-72) U/L Alkaline Phosphatase 102 (38-126) U/L Total Protein 7.3 (6.3-8.2) g/dL Albumin 4.3 (3.5-5.0) g/dL - Imaging CT scan - abdomen: report reviewed, image reviewed CT scan - pelvis: report reviewed, image reviewed (No free fluid in the pelvis. Localized free air involving the right colon.) Assessment and Plan (1) Lactic acidosis Current Visit: Yes Status: Acute Code(s): E87.2 - ACIDOSIS SNOMED Code(s) : 26581754 (2) Large bowel ischemia Current Visit: Yes Status: Acute Code(s): K55.9 - VASCULAR DISORDER OF INTESTINE, UNSPECIFIED SNOMED Code(s): 84640603 (3) Pneumatosis intestinalis of large intestine Current Visit: Yes Status: Acute Code(s): K63.89 - OTHER SPECIFIED DISEASES OF INTESTINE SNOMED Code(s): 959420784 (4) Dysphagia Current Visit: No Status: Acute Priority: High Code(s): R13.10 - DYSPHAGIA , UNSPECIFIED SNOMED Code(s): 18047161 (5) Esophageal carcinoma Current Visit: No Status: Acute Code(s): C15.9 - MALIGNANT NEOPLASM OF ESOPHAGUS, UNSPECIFIED SNOMED Code(s): 760102738 (6) Pharyngeal mass Current Visit: No Status: Acute Priority: High Code(s): J39.2 - OTHER DISEASES OF PHARYNX SNOMED Code(s): 685537928 (7) Squamous cell carcinoma Current Visit: No Status: Acute Priority: High Code(s): C44.92 - SQUAMOUS CELL CARCINOMA OF SKIN, UNSPECIFIED SNOMED Code(s): 709508912 (8) Tracheostomy malfunction Current Visit: No Status: Acute Code(s): J95.03 - MALFUNCTION OF TRACHEOSTOMY STOMA SNOMED Code(s): 501138605 (9) Gastroesophageal reflux Current Visit: Yes Status: Acute Code(s): K21.9 - GASTRO-ESOPHAGEAL REFLUX DISEASE WITHOUT ESOPHAGITIS SNOMED Code(s): 761636810 (10) Anxiety Current Visit: Yes Status: Acute Code(s): F41.9 - ANXIETY DISORDER, UNSPECIFIED SNOMED Code(s): 10646789
--- NOTE | 2018-03-30 17:02 | P.CONS ---
History of Present Illness - Reason for Consult Consult date: 03/30/18 chemotherapy current head and neck cancer Requesting physician: Gris Sosa - Chief Complaint depression, pain - History of Present Illness Mr. Dotson is a pleasant male pt of Dr. Barron who was initially seen in consult at [facility] 11/19/17. He presented with 1 month of progressive swelling in the right neck, associated with changes in speech, feeling of nasal congestion, audible changes in breath sounds and difficulty swallowing. The mass was hard but not painful. CT neck showed a 4 by 3 cm mass involving the right tonsil extending inferiorly into the hypopharynx on the right, downward extension measuring approximately 6 cm, mass crossed the midline. Tumor was also felt to involve anterior triangle right-sided cervical lymph nodes. CT CAP was negative other than a 1.5 x 2 cm focus in the liver, which was felt to be indeterminate. Patient was seen by various specialties, including ENT, gastroenterology, and pulmonary medicine. He was felt to be in danger of imminent airway compromise and underwent tracheostomy. As he was having significant difficulty in swallowing already, he also had an EGD with PEG placement. He had biopsies on 11/22/17, from the pharyngeal mass, as well as FNA of one of the right-sided neck nodes. 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 The mass measured 6.6 cm by 5.6 cm. 1.3 cm nodularity in the right parapharyngeal space was noted showing intense uptake with SUV of 8.4, while SUV in the mass was 22.2. There was large , dominant soft tissue mass in the right level IIA measuring 4 cm with max SUV 11. A couple of submandibular nodes were involved measuring 1.7 cm with SUV of 7.1 There was evidence of right cervical lymph node involvement, with level 2/3 lymph nodes measuring 1.9 cm, SUV 8.4, level IV lymph node measuring 1.7 cm, SUV 9.2. There was no evidence of distant metastatic disease. Plan was for neoadjuvant chemo/XRT with curative intent. He was seen for his first office visit on 12/04/17. He was referred to Rad Onc. After their evaluation of his PET, it was felt that he would benefit from induction chemo then concurrent treatment. Pt was unable to psychologically manage his diagnosis initially so, he opted out of treatment for hosipce. He later changed his mind and decided to pursue treatment. He was started on concurrent treatment with Taxol, Carboplatin and weekly erbitux. He is status post two cycles, last on 03/24/18. Seen in office in follow-up on 03/19/18. Patient had rash under control, feedings through J tube tolerated, he was tired and his biggest anticipation was the hope of swallowing and eating again. We discussed seeing speech therapy after next cycle to re-assess. he does have trach and did have a recent admission for aspiration pneumonia. On Sunday I received a call from [employer] who stated the patients called and left a message about the patient. She stated in the message the patient was striking himself, he did proceed to Emergency for further evaluation. He was complaining of diarrhea, abdominal pain and cramping with associated nausea. The area can not be pinpointed. CT of the chest including abdomen and pelvis is consistent with localized pneumoperitoneum involving the right colon. No reports of fevers or chills. No peritonitis. His main concern includes increased secretions along his metal tracheostomy. He also is concerned about his future treatments not having a port as he is a hard IV start. General Surgery did evaluate patient and exp lap with poss hemicolectomy and ostomy were discussed with him and his . This was to further assess the findings on CT scan. Oncology has been consulted as he is currently undergoing chemotherapy and radiation under the care of Dr. Barron Pt is admitted for aspiration pneumonia, his states he has had trouble since the length of his trach tube was shortened. Review of Systems A 14 point review assessed and completed and all neg except hpi Past Medical History Past Medical History: Cancer Additional Past Medical History / Comment(s): throat cancer History of Any Multi-Drug Resistant Organisms: None Reported Past Surgical History: No Surgical Hx Reported Additional Past Surgical History / Comment(s): tracheostomy, and PEG tube Past Anesthesia/Blood Transfusion Reactions: No Reported Reaction Past Psychological History: Anxiety Smoking Status: Former smoker Past Alcohol Use History: None Reported Past Drug Use History: None Reported - Past Family History Father Family Medical History: Cancer Additional Family Medical History / Comment(s): prostate cancer that spread to the brain Mother Family Medical History: Cancer Additional Family Medical History / Comment(s): ovarian cancer Sister(s) Family Medical History: Cancer Additional Family Medical History / Comment(s): breast cancer Medications and Allergies Home Medications Medication Instructions Recorded Confirmed Type Loratadine [Claritin] 10 mg PO DAILY PRN #30 tab 11/20/17 03/30/18 Rx Ondansetron HCl [Zofran] 4 mg PO Q6HR PRN #20 tablet 11/26/17 03/30/18 Rx HYDROcodone/APAP 5-325MG [[place] 1 - 2 tab PO Q4H PRN 02/20/18 03/30/18 History 5-325] Hyoscyamine Sulfate [Levsin-Sl] 0.125 mg SUBLINGUAL Q4H 02/20/18 03/30/18 History fentaNYL 25MCG/HR PATCH [Duragesic 1 patch TRANSDERM Q72H 02/20/18 03/30/18 History 25MCG/HR] LORazepam [Ativan] 1 mg PO TID PRN 03/04/18 03/30/18 History Pantoprazole [Protonix] 40 mg PO DAILY 03/04/18 03/30/18 History Allergies Allergy/AdvReac Type Severity Reaction Status Date / Time No Known Allergies Allergy Verified 03/30/18 14:53 Physical Exam Vitals: Vital Signs Temp Pulse Resp BP Pulse Ox 03/30/18 16:14 86 20 130/77 100 03/30/18 14:28 82 16 121/79 100 03/30/18 11:22 97.3 F L 107 H 24 127/89 100 Intake and Output 03/30/18 03/30/18 03/30/18 06:59 14:59 22:59 Other: Weight 66.678 kg Gen: No acute distress alert Next: trach collar rashing from treatment on face and neck Lungs: Rhonchi and diminished, no increased effort Heart: tachy, Reg Abdomen: Sofdt, Tender, Gaurding Extrem: No edema Neuurolog: Alert and appropriate Results CBC & Chem 7: 03/30/18 11:42 03/30/18 11:42 Labs: Abnormal Lab Results - Last 24 Hours (Table) 03/30/18 03/30/18 03/30/18 Range/Units 11:42 11:42 11:42 Lymphocytes # 0.9 L (1.0-4.8) k/uL Creatinine 0.50 L (0.66-1.25) mg/dL Glucose 105 H (74-99) mg/dL Plasma Lactic Acid Sherman 4.7 H* (0.7-2.0) mmol/L Total Bilirubin 3.0 H (0.2-1.3) mg/dL Amylase 118 H (30-110) U/L Urine Protein (Negative) Amorphous Sediment (None) /hpf 03/30/18 Range/Units 13:00 Lymphocytes # (1.0-4.8) k/uL Creatinine (0.66-1.25) mg/dL Glucose (74-99) mg/dL Plasma Lactic Acid Sherman (0.7-2.0) mmol/L Total Bilirubin (0.2-1.3) mg/dL Amylase (30-110) U/L Urine Protein Trace H (Negative) Amorphous Sediment Occasional H (None) /hpf CT scan - abdomen: report reviewed CT scan - chest: report reviewed CT scan - pelvis: report reviewed Assessment and Plan Plan: Assessment and Recommendations: 1. Head and Neck Cancer: - Currently on Chemotherapy, status Post Cycle Two with Carboplatin, Taxol and Erbitux (Antibody) - Treatment on hold until acute situation improved/resolved 2. Persistent abdomen Pain, Nausea, Vomiting and Diarrhea: - CT Scan of abd revealed CT of the chest including abdomen and pelvis is consistent with localized pneumoperitoneum involving the right colon. - Surgery is following and possible plan of exp lap per Dr. Hernandez - Supportive care, NPO, IV Hydration at this time to continue 3. Depression and Anxiety further related to diagnosis and treatment entities - Property Condition Assessor in cancer center is following along with patient 4. Increased Secretions secondary to treatment and malignancy - this appears to be one of patients main focus's of distress - Speech therapy after initial acute situation resolved. Plan: - Continue home fentanyl patch 25mcg - After surgery and recovery plan for psychiatric consultation and recs for long tern anti-depressants. Patient states he needs 1mg of ativan every 2 hours at home sometimes to control anxiety and he still does not sleep through this, he cries and describes him as being in a bad and sad place. thank you for allowing us to participate in the care of your patient Physician Attest: I have discussed the above history and physical and devloped the complete impression and plan and agree with dictation, dictated as a scribe.
[2018-03-30] MEDS: SODIUM CHLORIDE 0.9% 1,000 ML IV SCH (17:34)
[2018-03-30] MEDS: MORPHINE SULFATE 4 MG/ML SYRINGE IV PRN ×2 (17:39→21:16)
[2018-03-30] MEDS: PIPERACILLIN-TAZOBACTAM 3.375 GM in SODIUM CHLORIDE 0.9% 100 ML IVPB SCH ×2 (17:41→23:10)
[2018-03-30] MEDS ORDERED: ONDANSETRON 4 MG TAB PO PRN (18:11)
[2018-03-30] MEDS: LORazepam 2 MG/ML INJ IV PRN (21:53)
[2018-03-31] MEDS: MORPHINE SULFATE 4 MG/ML SYRINGE IV PRN ×2 (03:52→09:18)
[2018-03-31] MEDS: SODIUM CHLORIDE 0.9% 1,000 ML IV SCH ×2 (06:29→17:26)
[2018-03-31 06:50] LABS: Basophils % (A) 0 %; Eosinophils # (A) 0.6 k/uL (0-0.7); Eosinophils % (A) 5 %; HCT 35.7 % (39.0-53.0); Lymphocytes # (A) 1.2 k/uL (1.0-4.8); Lymphocytes % (A) 11 %; MCH 30.8 pg (25.0-35.0); MCHC 32.7 g/dL (31.0-37.0); MCV 94.3 fL (80.0-100.0); Mean Platelet Volume 7.5; Monocytes # (A) 0.2 k/uL (0-1.0); Monocytes % (A) 2 %; Neutrophils # (A) 8.8 k/uL (1.3-7.7); Neutrophils % (A) 81 %; Platelet Count 279 k/uL (150-450); RBC 3.78 m/uL (4.30-5.90); RDW 14.2 % (11.5-15.5); WBC 10.8 k/uL (3.8-10.6)
[2018-03-31 06:59] LABS: HGB 11.6 gm/dL (13.0-17.5)
[2018-03-31 07:01] LABS: Prothrombin Time 10.8 sec (9.0-12.0)
[2018-03-31 07:04] LABS: ALT 50 U/L (21-72); AST 25 U/L (17-59); Alkaline Phosphatase 67 U/L (38-126); Anion Gap 5 mmol/L; Blood Urea Nitrogen 11 mg/dL (9-20); Calcium 8.6 mg/dL (8.4-10.2); Carbon Dioxide 23 mmol/L (22-30); Chloride 114 mmol/L (98-107); Glucose 83 mg/dL (74-99); Potassium 3.5 mmol/L (3.5-5.1); Sodium 142 mmol/L (137-145); Total Bilirubin 2.6 mg/dL (0.2-1.3); Total Protein 5.5 g/dL (6.3-8.2)
[2018-03-31] MEDS: PIPERACILLIN-TAZOBACTAM 3.375 GM in SODIUM CHLORIDE 0.9% 100 ML IVPB SCH ×3 (08:06→23:11)
--- NOTE | 2018-03-31 08:11 | HP ---
HISTORY AND PHYSICAL SUBJECTIVE: 63-year-old white male admitted with acute abdominal pain, ischemic bowel. He is going to be taken to surgery tonight or tomorrow morning due to increased abdominal pain and ischemic bowel. He is severely anxious. No chest pain or shortness of breath. REVIEW OF SYSTEMS: Fourteen point review of systems negative except for mentioned in HPI. PHYSICAL EXAMINATION: Vital signs stable. Afebrile. Cardiovascular S1, S2. LUNGS: Clear. GI: Increased bowel sounds. Increased tenderness, diffuse across the abdomen. Hematology: Negative Homans. Psych: Fair mood and affect. ASSESSMENT: 1. Acute abdominal pain. 2. Ischemic bowel. 3. Metastatic cancer. 4. Esophageal cancer. 5. Tracheostomy tube. 6. Anxiety. Please see further orders. Possible surgery soon. Clearance with EKG will be done. Please see further orders. MMODL / IJN: [id number] /
[2018-03-31] MEDS ORDERED: ceFAZolin IN SWFI 2 GM/20 ML SYRINGE IVP ONE (10:00)
[2018-03-31] MEDS ORDERED: metroNIDAZOLE-NS PMX 500 MG in SALINE 100 100ML.BAG IVPB ONE (10:00)
[2018-03-31] MEDS ORDERED: SODIUM CHLORIDE 0.9% 1,000 ML IV ONE (11:50)
[2018-03-31] MEDS ORDERED: MIDAZOLAM 2 MG/2 ML VIAL IVP ONE (12:03)
[2018-03-31] MEDS ORDERED: fentaNYL (PF) 50 MCG/ML 2 ML AMP IVP ONE ×2 (12:06→12:14)
[2018-03-31] MEDS ORDERED: PROPOFOL 10 MG/ML 20 ML VIAL IV ONE (12:15)
[2018-03-31] MEDS ORDERED: PHENYLEPHRINE-0.9% NACL SYG 1 MG/10 ML SYRINGE ONE (12:15)
[2018-03-31] MEDS ORDERED: ROCURONIUM BROMIDE 10 MG/ML 10 ML VIAL IV ONE (12:15)
[2018-03-31] MEDS ORDERED: ePHEDrine SULFATE/0.9% NACL/PF 50 MG/5 ML SYRINGE IV ONE (12:15)
[2018-03-31] MEDS ORDERED: GLYCOPYRROLATE 0.2 MG/ML 2 ML VIAL ONE (12:15)
[2018-03-31] MEDS ORDERED: NEOSTIGMINE 1 MG/ML 10 ML VIAL ONE (12:15)
--- NOTE | 2018-03-31 12:23 | P.HPADDEND ---
H&P Addendum H&P Addendum Date: 03/31/18 Extended discussion performed with patient's family including that he was due for port placement on Sunday04/05/2018 for chemotherapy for oropharyngeal cancer. As a result, laparotomy with ostomy creation will be performed to allow for chemotherapy without sequelae. At this time, port placement contraindicated for contaminated case. Alternatives for central venous catheter may be discussed with interventional radiology. Anticipated inpatient hospitalization at least 7-10 days described. Patient has a PEG tube which may allow for early nutrition. Patient will be full CODE STATUS for duration of operation. Patient is aware that he will be full CODE STATUS for his surgery. Time for coordination of care including discussion of care plan and goals 32 minutes
[2018-03-31] MEDS ORDERED: LACTATED RINGERS 1,000 ML IV ONE ×5 (12:45→13:45)
[2018-03-31] MEDS ORDERED: NALOXONE 0.4 MG/ML 1 ML VIAL IV PRN (13:07)
[2018-03-31] MEDS ORDERED: ONDANSETRON 4 MG/2 ML VIAL IVP PRN (15:18)
[2018-03-31] MEDS ORDERED: METOCLOPRAMIDE 5 MG/ML 2 ML VIAL IVP PRN (15:18)
--- NOTE | 2018-03-31 15:45 | P.OP ---
Date of Procedure: 03/31/18 Description of Procedure: SURGEON: KAVON FLOWERS MD AWARD CLERK: NONE. PREOPERATIVE DIAGNOSIS: 1. Pneumoperitoneum per abnormal computed tomography scan 2. Ischemic right colon per abnormal computed tomography scan 3. Oropharyngeal cancer 4. Tracheostomy status 5. Gastrostomy tube status 6. Gastroesophageal reflux disease 7. Anxiety disorder POSTOPERATIVE DIAGNOSIS: 1. Pneumoperitoneum per abnormal computed tomography scan 2. Ischemic right colon per abnormal computed tomography scan 3. Oropharyngeal cancer 4. Tracheostomy status 5. Gastrostomy tube status 6. Gastroesophageal reflux disease 7. Anxiety disorder OPERATION: 1. Open exploratory laparotomy with extended right hemicolectomy 2. Placement of right lower quadrant end ileostomy 3. Abdominal lavage 3 L normal saline ANESTHESIA: General with epidural. ESTIMATED BLOOD LOSS: 50 cc. SPECIMENS REMOVED: Right colon resection, extended CONDITION: Stable. DISPOSITION: To the Floor. COMPLICATIONS: None. OPERATIVE FINDINGS: 1. Confirm pneumoperitoneum along the colon mesentery involving the ascending coaling to proximal transverse colon 2. Ischemic changes confirmed of the right colon with ischemic demarcation at mid transverse colon resected to viable tissue 3. Sigmoid colon unremarkable with the exception of diverticulosis 4. No diffuse peritonitis identified 5. Gastrostomy tube with anchor embedded in subcutaneous tissue at midline of abdomen adding complexity to case 6. Liver unremarkable for metastatic disease 7. Gallbladder mildly dilated 8. Distal transverse colon and descending colon unremarkable 9. Small bowel unremarkable 10. Resection performed 10 cm proximal to ileocecal valve INDICATIONS: The patient is a 63-year-old male who 4 months ago was diagnosed with oropharyngeal cancer. The tracheostomy and gastrostomy tube were placed 4 months ago. Patient came in with a normal computed tomography scan demonstrating pneumoperitoneum involving the right abdomen as well as bowel ischemia involving the right colon. Separately, patient's family report he was scheduled to undergo placement of a port placement for chemotherapy. Surgical intervention was advised with exploratory laparotomy and bowel resection and ostomy creation. Benefits and risks of the procedures were discussed. Informed consent was obtained. The patient's family were at bedside. Patient was initially no code however turned to full code only for duration of the surgery. He was also on scheduled antibiotics. DESCRIPTION: An epidural was placed per anesthesia. The patient was brought to the operating room. After general induction, a Dean catheter was placed. The abdomen was prepped and draped in standard sterile fashion. Ioban draping was also placed. Prior to incision, a timeout protocol was confirmed with surgical team regarding patient's name including procedures to be performed. Preoperative medications were confirmed. A #10 blade was used to enter along the epigastrium and extended down to the pubis. Carefully the abdomen was entered using electro- Bovie cautery. The small bowel was unremarkable. Separately, a gastrostomy tube was found directly at the midline of the upper abdomen adding complexity to case for incision. Further investigation of the gastrostomy tube demonstrated abnormal placement of the gastrostomy anchor embedded in the subcutaneous tissue. An off mid-line incision was carefully extended below the subxiphoid after protecting the gastrostomy tube. Initial attention was brought to the right colon where the mesentery had moderate pockets of air consistent with pneumoperitoneum. Dusky appearance of the right colon to the midtransverse colon was confirmed with clear demarcation and nondistended distal colon was confirmed. The sigmoid colon was remarkable only for diverticulosis. The rest of the small intestine was unremarkable. The liver was unremarkable. The gallbladder was slightly distended. The posterior aspect of the stomach was unremarkable. Next, the area of demarcation along the mid transverse colon was found and an extended right hemicolectomy was performed after creating windows along the transverse mesocolon using Bovie cautery. Enseal was used to divide the transverse mesocolon and mesentery. The mid transverse colon was resected using 60 mm purple Covidien tri-stapler. The staple line was hemostatic. The rest of the right colon was mobilized carefully to the ileocecal valve. Hemostasis was excellent. At 10 cm proximal to the ileocecal valve, the ileum was resected using 45 mm morocho staple load Covidien tri-stapler. The rest of the colon, cecum, appendix was mobilized using combination of electrocautery cautery including Enseal and passed off as specimen en total. The remnant distal transverse colon was marked using 2-0 Prolene. An end ileostomy was brought out through the right lower quadrant after making a circular 1 cm incision along the subcutaneous tissue using a #10 blade. Muscle-splitting technique was performed to deliver the end ileostomy to the right lower quadrant. The abdomen had been copiously irrigated with 3 L warm normal saline solution prior to bringing out the ileostomy. Hemostasis was excellent with minimal blood loss. The abdomen was dried using towels. All sponge count was verified as correct. Gloves were exchanged to minimize contamination for incisional closure and Ioban draping was used throughout the case. The abdomen was closed using double stranded 0 PDS. The subcutaneous tissue was irrigated in a similar fashion. The skin incision along the umbilicus was reapproximated using interrupted 3-0 Vicryl for the dermis. An Optifoam incisional length dressing was placed. Attempted PREVENA device was used however moderate air leak was confirmed for involvement of his PEG tube and wound vac device was abandoned. The end ileostomy was matured using 3-0 Vicryl along each quadrant using dermal , serosal, mucosal bites for projection of 1 cm above the skin. An ostomy appliance was measured and placed after cleansing the skin and using an adhesive sure prep. At the end of the procedure, needle, sponge, and instrument count had been verified correct by the surgical services coordinator. The patient was sent to the postanesthesia care unit in stable condition. Intraoperative findings were described to the patient's family who were very pleased with the level of care. Ostomy education including management of disconnected distal colon were reviewed with the family.
[2018-03-31] MEDS: ROPIVACAINE 300 MG, HYDROMORPHONE (PF) 5 MG in SODIUM CHLORIDE 0.9% 190 ML EPIDURAL PRN (15:46)
--- NOTE | 2018-03-31 18:41 | PN ---
PROGRESS NOTE SUBJECTIVE: This is a CARDIOVASCULAR: S1, S2. LUNGS: Clear. GI: Soft. HEMATOLOGY: Negative Homans. PSYCH: Fair mood and affect. He is status post surgery per Dr. Yap. Prognosis guarded. Follow up in next 24 to 48 hours. DIAGNOSES: 1. Pneumoperitoneum. 2. Ischemic right colon. 3. Oropharyngeal cancer. 4. Tracheostomy. 5. Gastrostomy. 6. Gastroesophageal reflux disease. 7. Anxiety. Follow up in next 24-48 hours for postop care. MMODL / IJN: [id number] /
[2018-03-31] MEDS: LORazepam 2 MG/ML INJ IV PRN (19:56)
[2018-03-31] MEDS: HYDROmorphone 0.5 MG/0.5 ML SYRINGE IVP PRN (20:41)
[2018-03-31] MEDS: HEPARIN SODIUM,PORCINE 5,000 UNIT/ML 1 ML VIAL SQ SCH (20:42)
[2018-04-01] MEDS: LORazepam 2 MG/ML INJ IV PRN ×3 (02:43→21:54)
[2018-04-01] MEDS: HYDROmorphone 0.5 MG/0.5 ML SYRINGE IVP PRN ×2 (02:43→07:21)
--- NOTE | 2018-04-01 06:15 | P.PN ---
Progress Note - Text Progress Note Date: 04/01/18 63-year-old male status post exploratory laparotomy right colectomy. Epidural catheter running at 12 ML's an hour, patient has a history of chronic pain secondary to malignancy. No motor sensory deficits. Pain control is adequate less than 4 out of 10 in severity. Patient resting comfortably. Continue epidural with current settings.
[2018-04-01 06:50] LABS: Basophils % (A) 1 %; Eosinophils # (A) 0.4 k/uL (0-0.7); Eosinophils % (A) 6 %; HGB 11.7 gm/dL (13.0-17.5); Lymphocytes # (A) 1.1 k/uL (1.0-4.8); Lymphocytes % (A) 15 %; MCH 31.4 pg (25.0-35.0); MCHC 33.5 g/dL (31.0-37.0); MCV 93.7 fL (80.0-100.0); Mean Platelet Volume 7.4; Monocytes # (A) 0.2 k/uL (0-1.0); Monocytes % (A) 2 %; Neutrophils # (A) 5.8 k/uL (1.3-7.7); Neutrophils % (A) 76 %; Platelet Count 252 k/uL (150-450); RBC 3.73 m/uL (4.30-5.90); RDW 13.8 % (11.5-15.5); WBC 7.6 k/uL (3.8-10.6)
[2018-04-01 07:03] LABS: ALT 48 U/L (21-72); AST 21 U/L (17-59); Albumin 2.8 g/dL (3.5-5.0); Alkaline Phosphatase 68 U/L (38-126); Anion Gap 3 mmol/L; Blood Urea Nitrogen 7 mg/dL (9-20); Calcium 8.4 mg/dL (8.4-10.2); Carbon Dioxide 27 mmol/L (22-30); Chloride 108 mmol/L (98-107); Glucose 90 mg/dL (74-99); Magnesium 1.6 mg/dL (1.6-2.3); Phosphorus 3.1 mg/dL (2.5-4.5); Sodium 138 mmol/L (137-145); Total Bilirubin 3.3 mg/dL (0.2-1.3); Total Protein 5.1 g/dL (6.3-8.2)
[2018-04-01] MEDS: SODIUM CHLORIDE 0.9% 1,000 ML IV SCH ×2 (07:23→17:58)
--- NOTE | 2018-04-01 07:54 | P.PN ---
Progress Note - Text Progress Note Date: 03/31/18 Clinically stable following surgery. Will start tube feeds in 48 hrs. Will need assessment for rehab. Goal for discharge Sun/.
[2018-04-01] MEDS ORDERED: HYDROmorphone 0.5 MG/0.5 ML SYRINGE IVP STA (09:06)
[2018-04-01] MEDS: PANTOPRAZOLE 40 MG/10 ML VIAL IV SCH (09:11)
[2018-04-01] MEDS: HEPARIN SODIUM,PORCINE 5,000 UNIT/ML 1 ML VIAL SQ SCH ×2 (09:11→21:46)
[2018-04-01] MEDS: PIPERACILLIN-TAZOBACTAM 3.375 GM in SODIUM CHLORIDE 0.9% 100 ML IVPB SCH ×3 (09:11→23:04)
--- NOTE | 2018-04-01 10:05 | P.PN ---
Subjective Progress Note Date: 04/01/18 HISTORY OF PRESENT ILLNESS: Patient examined at the bedside. S/P right hemicolectomy with ileostomy. Patient is complaining of severe pain. Epidural is infusing at 12cc/hr. WBC 7.6. Hemoglobin 11.7. PHYSICAL EXAM: VITAL SIGNS: Currently stable. GENERAL: Well-developed in no acute distress, but appears uncomfortable. HEENT: Trach noted. No sclera icterus. Extraocular movements grossly intact. Moist buccal mucosa. Head is atraumatic, normocephalic. Hears conversational speech. No nasal drainage. NECK: Supple without lymphadenopathy. CHEST: Non-labored respirations and equal bilateral excursions. CARDIOVASCULAR: Regular rate with regular rhythm. Palpable 2+ radial pulses. ABDOMEN: Soft. Nondistended. Tenderness noted. Ileostomy with dark brown liquid output. Dressings with serosanguineous drainage noted. PEG tube clamped. MUSCULOSKELETAL: No clubbing, cyanosis or edema. NEUROLOGIC: No focal or lateralizing signs. Cranial nerves II through XII grossly intact. PSYCH: Appropriate affect. Alert and oriented to person, place and time. SKIN: Well perfused. Good skin turgor. ASSESSMENT: 1. Pneumoperitoneum, S/P right hemicolectomy with ileostomy 2. Oropharyngeal cancer, s/p trach and peg tube placement PLAN: 1. Continue NPO status. May begin tube feedings tomorrow 2. Pain control. Continue epidural. Increase breakthrough dilaudid dose to 1mg. 3. 0.5mg Dilaudid IVP x 1 dose now 4. Incentive spirometry 5. Social work on consult for rehab placement Nurse practitioner note has been reviewed by physician. Signing provider agrees with the documented findings, assessment, and plan of care. Objective - Vital Signs Vital signs: Vital Signs Temp 98.1 F 04/01/18 08:00 Pulse 91 04/01/18 08:00 Resp 16 04/01/18 08:00 BP 126/72 04/01/18 08:00 Pulse Ox 98 04/01/18 08:00 Intake & Output 03/31/18 04/01/18 04/01/18 18:59 06:59 18:59 Intake Total 3150 100 Output Total 1650 2700 Balance 1500 -2600 Weight 69.5 kg Intake: IV 3150 Intake, IV Titration 100 Amount Piperacillin-Tazobactam 3 100 .375 gm In Sodium Chloride 0.9% 100 ml @ 25 mls/hr IVPB Q8HR [facility] Rx# :[id number] Output: Urine 1600 2700 Uretheral (Dean) 450 Estimated Blood Loss 50 Other: Voiding Method Indwelling Catheter Indwelling Catheter Indwelling Catheter # Voids 1 - Labs CBC & Chem 7: 04/01/18 06:33 04/01/18 06:33 Labs: Abnormal Lab Results - Last 24 Hours (Table) 04/01/18 04/01/18 Range/Units 06:33 06:33 RBC 3.73 L (4.30-5.90) m/uL Hgb 11.7 L (13.0-17.5) gm/dL Hct 35.0 L (39.0-53.0) % Chloride 108 H (98-107) mmol/L BUN 7 L (9-20) mg/dL Creatinine 0.58 L (0.66-1.25) mg/dL Total Bilirubin 3.3 H (0.2-1.3) mg/dL Total Protein 5.1 L (6.3-8.2) g/dL Albumin 2.8 L (3.5-5.0) g/dL Assessment and Plan (1) Pneumoperitoneum Current Visit: Yes Status: Acute Code(s): K66.8 - OTHER SPECIFIED DISORDERS OF PERITONEUM SNOMED Code(s): 95706306 (2) S/P colectomy Current Visit: Yes Status: Acute Code(s): Z90.49 - ACQUIRED ABSENCE OF OTHER SPECIFIED PARTS OF DIGESTIVE TRACT SNOMED Code(s): 264265873 (3) Lactic acidosis Current Visit: Yes Status: Acute Code(s): E87.2 - ACIDOSIS SNOMED Code(s) : 31339300 (4) Dysphagia Current Visit: No Status: Acute Priority: High Code(s): R13.10 - DYSPHAGIA , UNSPECIFIED SNOMED Code(s): 09656818 (5) Esophageal carcinoma Current Visit: No Status: Acute Code(s): C15.9 - MALIGNANT NEOPLASM OF ESOPHAGUS, UNSPECIFIED SNOMED Code(s): 858203277
[2018-04-01] MEDS: HYDROmorphone 1 MG/ML 1 ML SYRINGE IVP PRN ×3 (15:34→21:47)
[2018-04-01] MEDS: HYDROCORTISONE 1% CREAM 454 GM JAR TOPICAL SCH ×2 (17:58→21:46)
--- NOTE | 2018-04-01 19:00 | P.PN ---
Subjective Progress Note Date: 04/01/18 Principal diagnosis: pneumoperitoneum, on treatment for In f/u pt c/o abd discomfort at incision, not unrealistic pain, he did require aggressive pain mgmt last night, no fever, nausea, vomiting. No c/o r/t trach, no excessive secretions Objective - Vital Signs Vital signs: Vital Signs Temp 98.0 F 04/01/18 16:00 Pulse 85 04/01/18 16:00 Resp 16 04/01/18 16:00 BP 134/83 04/01/18 16:00 Pulse Ox 98 04/01/18 16:00 Intake & Output 03/31/18 04/01/18 04/01/18 18:59 06:59 18:59 Intake Total 3150 100 625 Output Total 1650 2700 700 Balance 1500 -2600 -75 Weight 69.5 kg 69.5 kg Intake: IV 3150 Intake, IV Titration 100 625 Amount Piperacillin-Tazobactam 3 100 100 .375 gm In Sodium Chloride 0.9% 100 ml @ 25 mls/hr IVPB Q8HR [facility] Rx# :[id number] Sodium Chloride 0.9% 1, 525 000 ml @ 75 mls/hr IV . [id number] [facility] Rx#:[id number] Output: Urine 1600 2700 700 Uretheral (Dean) 450 Estimated Blood Loss 50 Other: Voiding Method Indwelling Catheter Indwelling Catheter Indwelling Catheter # Voids 1 - Constitutional General appearance: Present: average body habitus, cooperative, mild distress - EENT EENT Comment(s): trach does not have foul odor, no thick secretions draining or s/s infection around the tube Eyes: Present: anicteric sclerae, EOMI - Respiratory Respiratory: bilateral: CTA - Cardiovascular Heart sounds: normal: S1, S2 Abnormal Heart Sounds: Absent: systolic murmur, diastolic murmur, rub, S3 Gallop , S4 Gallop, click, other - Gastrointestinal Gastrointestinal Comment(s): lower abd midline incision has small amount of bloody drainage on it, no redness around dressing noted, there is small amt of dark fluid noted in ostomy. The abd does not look red, not hot to touch, no BS at 1 min auscultation - Integumentary Integumentary Comment(s): macular/papular rash on chest consistent with EGRF rash, red, confluent rash noted near fentanyl patch, not the same rash, no puritis - Neurologic Neurologic: Present: CNII-XII intact - Musculoskeletal Musculoskeletal: Present: strength equal bilaterally - Psychiatric Psychiatric: Present: A&O x's 3, appropriate affect, intact judgment & insight - Labs CBC & Chem 7: 04/01/18 06:33 04/01/18 06:33 Labs: Abnormal Lab Results - Last 24 Hours (Table) 04/01/18 04/01/18 Range/Units 06:33 06:33 RBC 3.73 L (4.30-5.90) m/uL Hgb 11.7 L (13.0-17.5) gm/dL Hct 35.0 L (39.0-53.0) % Chloride 108 H (98-107) mmol/L BUN 7 L (9-20) mg/dL Creatinine 0.58 L (0.66-1.25) mg/dL Total Bilirubin 3.3 H (0.2-1.3) mg/dL Total Protein 5.1 L (6.3-8.2) g/dL Albumin 2.8 L (3.5-5.0) g/dL Assessment and Plan (1) Esophageal carcinoma Narrative/Plan: Pt is s/p cycle 2 day 1 of treatment, he is actually having a good subjective response to treatment with improvement in speech and breathing. Pending healing from recent surgery so further treatment plans are on hold at this time. Current Visit: Yes Status: Chronic Priority: Medium Code(s): C15.9 - MALIGNANT NEOPLASM OF ESOPHAGUS, UNSPECIFIED SNOMED Code(s): 240644685 (2) Drug-induced skin rash Narrative/Plan: Secondary to EGFR antagonist. Actually, rash is indicative of treatment being effective. Will treat locally with topical steroid at this time. If progression can add doxycycline, use steroids only if rash gets out of control The rash by the fentanyl patch looks different so, will reevaluate in AM to see if better with topical or if another approach is needed or if adhesive reaction. Current Visit: Yes Status: Acute Priority: Medium Code(s): L27.0 - GEN SKIN ERUPTION DUE TO DRUGS AND MEDS TAKEN INTERNALLY SNOMED Code(s): 94052901
--- NOTE | 2018-04-01 23:48 | PN ---
PROGRESS NOTE SUBJECTIVE: White male, status post surgery, colostomy placement, status post right hemicolectomy, ileostomy, severe pain, epidural infusing, hemoglobin stable, white count stable. OBJECTIVE: Vital signs stable. Afebrile. Abdomen shows ileostomy bag with dark brown liquid. PEG tube. Musculoskeletal, good range of motion. Psych, fair mood and affect. ASSESSMENT: 1. Status post right hemicolectomy and ileostomy. 2. Oropharyngeal cancer, status post trach and PEG tube placement. 3. Pneumoperitoneum. PLAN: Patient is n.p.o. Tube feeding. Pain control. Rehab placement. MMODL / IJN: [id number] /
[2018-04-02] MEDS: HYDROmorphone 1 MG/ML 1 ML SYRINGE IVP PRN ×3 (01:55→13:50)
[2018-04-02] MEDS: ROPIVACAINE 300 MG, HYDROMORPHONE (PF) 5 MG in SODIUM CHLORIDE 0.9% 190 ML EPIDURAL PRN (04:13)
[2018-04-02] MEDS: LORazepam 2 MG/ML INJ IV PRN ×2 (06:13→12:37)
[2018-04-02] MEDS: HEPARIN SODIUM,PORCINE 5,000 UNIT/ML 1 ML VIAL SQ SCH ×2 (09:17→20:39)
[2018-04-02] MEDS: PIPERACILLIN-TAZOBACTAM 3.375 GM in SODIUM CHLORIDE 0.9% 100 ML IVPB SCH ×3 (09:18→23:58)
[2018-04-02] MEDS: PANTOPRAZOLE 40 MG/10 ML VIAL IV SCH (09:18)
[2018-04-02] MEDS: HYDROCORTISONE 1% CREAM 454 GM JAR TOPICAL SCH ×4 (09:27→20:40)
--- NOTE | 2018-04-02 11:18 | P.PN ---
Subjective Progress Note Date: 04/02/18 HISTORY OF PRESENT ILLNESS: Patient examined at the bedside. S/P right hemicolectomy with ileostomy. Patient states his pain is better controlled today. Epidural infusing at 9cc/hr. Vital signs are stable. He is afebrile. PHYSICAL EXAM: VITAL SIGNS: Currently stable. GENERAL: Well-developed in no acute distress, but appears uncomfortable. HEENT: Trach noted. No sclera icterus. Extraocular movements grossly intact. Moist buccal mucosa. Head is atraumatic, normocephalic. Hears conversational speech. No nasal drainage. NECK: Supple without lymphadenopathy. CHEST: Non-labored respirations and equal bilateral excursions. CARDIOVASCULAR: Regular rate with regular rhythm. Palpable 2+ radial pulses. ABDOMEN: Soft. Nondistended. Ileostomy with dark brown liquid output. Dressings with serosanguineous drainage noted. PEG tube clamped. MUSCULOSKELETAL: No clubbing, cyanosis or edema. NEUROLOGIC: No focal or lateralizing signs. Cranial nerves II through XII grossly intact. PSYCH: Appropriate affect. Alert and oriented to person, place and time. SKIN: Well perfused. Good skin turgor. ASSESSMENT: 1. Pneumoperitoneum, S/P right hemicolectomy with ileostomy 2. Oropharyngeal cancer, s/p trach and peg tube placement PLAN: 1. Consult dietary 2. Begin tube feedings 3. Pain control 4. Continue epidural. Will DC epidural and hodgson tomorrow 5. Social work on consult for rehab placement 6. Anticipate discharge within the next 24-48 hours Nurse practitioner note has been reviewed by physician. Signing provider agrees with the documented findings, assessment, and plan of care. Objective - Vital Signs Vital signs: Vital Signs Temp 98.2 F 04/02/18 08:00 Pulse 90 04/02/18 08:00 Resp 20 04/02/18 08:00 BP 114/64 04/02/18 08:00 Pulse Ox 100 04/02/18 08:00 Intake & Output 04/01/18 04/02/18 04/02/18 18:59 06:59 18:59 Intake Total 625 200 Output Total 700 1900 800 Balance -75 -1700 -800 Weight 69.5 kg 71 kg Intake: Intake, IV Titration 625 200 Amount Piperacillin-Tazobactam 3 100 200 .375 gm In Sodium Chloride 0.9% 100 ml @ 25 mls/hr IVPB Q8HR [facility] Rx# :[id number] Sodium Chloride 0.9% 1, 525 000 ml @ 75 mls/hr IV . [id number] [facility] Rx#:[id number] Output: Urine 700 1900 700 Stool 100 Other: Voiding Method Indwelling Catheter Indwelling Catheter Indwelling Catheter - Labs CBC & Chem 7: 04/01/18 06:33 04/01/18 06:33 Assessment and Plan (1) Pneumoperitoneum Current Visit: Yes Status: Acute Code(s): K66.8 - OTHER SPECIFIED DISORDERS OF PERITONEUM SNOMED Code(s): 86862670 (2) S/P colectomy Current Visit: Yes Status: Acute Code(s): Z90.49 - ACQUIRED ABSENCE OF OTHER SPECIFIED PARTS OF DIGESTIVE TRACT SNOMED Code(s): 144817182 (3) Lactic acidosis Current Visit: Yes Status: Acute Code(s): E87.2 - ACIDOSIS SNOMED Code(s) : 97465387 (4) Dysphagia Current Visit: No Status: Acute Priority: High Code(s): R13.10 - DYSPHAGIA , UNSPECIFIED SNOMED Code(s): 46869032 (5) Esophageal carcinoma Current Visit: Yes Status: Chronic Priority: Medium Code(s): C15.9 - MALIGNANT NEOPLASM OF ESOPHAGUS, UNSPECIFIED SNOMED Code(s): 681373356
--- NOTE | 2018-04-02 11:57 | P.PN ---
Progress Note - Text Progress Note Date: 04/02/18 Epidural rounds Patient is status post ex-lap evaluated due 2 catheter Plan to remove catheter tomorrow Patient denies any pain reports VAS 4 out of [address] collar in place PEG tube in place Epidural site looks clean dry and intact Paramedian to the epidural site are signs of a rash attributed to the chemotherapy per primary team Continue epidural management and possible DC tomorrow
--- NOTE | 2018-04-02 14:27 | P.PN ---
Subjective Progress Note Date: 04/02/18 Principal diagnosis: pneumoperitoneum, on treatment for esophageal adenocarcinoma In f/u pt is sitting up in bed today, pain is much better controlled, he wants his trach tube changed, the current device is too lose and rubs the tumor. He is using PEG withou indigestion, nausea, no fevers. Objective - Vital Signs Vital signs: Vital Signs Temp 97.5 F L 04/02/18 12:00 Pulse 93 04/02/18 12:00 Resp 20 04/02/18 12:00 BP 143/83 04/02/18 12:00 Pulse Ox 94 L 04/02/18 12:00 Intake & Output 04/01/18 04/02/18 04/02/18 18:59 06:59 18:59 Intake Total 625 200 Output Total 700 1900 800 Balance -75 -1700 -800 Weight 69.5 kg 71 kg Intake: Intake, IV Titration 625 200 Amount Piperacillin-Tazobactam 3 100 200 .375 gm In Sodium Chloride 0.9% 100 ml @ 25 mls/hr IVPB Q8HR [facility] Rx# :[id number] Sodium Chloride 0.9% 1, 525 000 ml @ 75 mls/hr IV . [id number] [facility] Rx#:[id number] Output: Urine 700 1900 700 Stool 100 Other: Voiding Method Indwelling Catheter Indwelling Catheter Indwelling Catheter - Exam A&O x 4, NAD, respirations even and unlabored, rash on chest, upper back and face is stable, r/t erbitux. The rash in the bilateral axilla areas is stable as well, red, slightly raised, not same rash. Abd incision is intact. - Constitutional General appearance: Present: average body habitus, cooperative, no acute distress - EENT Eyes: Present: anicteric sclerae, EOMI ENT: Present: hearing grossly normal - Neurologic Neurologic: Present: CNII-XII intact - Musculoskeletal Musculoskeletal: Present: strength equal bilaterally - Psychiatric Psychiatric: Present: A&O x's 3, appropriate affect, intact judgment & insight - Labs CBC & Chem 7: 04/01/18 06:33 04/01/18 06:33 Assessment and Plan (1) Esophageal carcinoma Narrative/Plan: Pt is s/p cycle 2 day 1 of treatment, he is actually having a good subjective response to treatment with improvement in speech and breathing. Pending healing from recent surgery. Treatment will be held at least 4 weeks post op. Encouraged pt to use the time until resumption of treatment to rehabilitate and get stronger Current Visit: Yes Status: Chronic Priority: Medium Code(s): C15.9 - MALIGNANT NEOPLASM OF ESOPHAGUS, UNSPECIFIED SNOMED Code(s): 691884920 (2) Drug-induced skin rash Narrative/Plan: Secondary to EGFR antagonist. Only the face, chest and upper back rash is from Tx. Local topical Tx is stabilizing the rash. If progression can add doxycycline, use steroids only if rash gets out of control The rash in the anterior axilla seems to be an adhesive reaction or possibly a fungal reaction. It is not worse or better today, cont to monitor. Fentanyl adhesive has been tolerated for several months now so not felt to be related to that adhesive. Current Visit: Yes Status: Acute Priority: Medium Code(s): L27.0 - GEN SKIN ERUPTION DUE TO DRUGS AND MEDS TAKEN INTERNALLY SNOMED Code(s): 18005085
[2018-04-02] MEDS: SODIUM CHLORIDE 0.9% 1,000 ML IV SCH ×2 (18:35→23:07)
[2018-04-02] MEDS ORDERED: DIAZEPAM 5 MG TAB PO PRN (20:23)
[2018-04-03] MEDS: MORPHINE SULFATE 4 MG/ML SYRINGE IV PRN ×3 (00:03→14:48)
--- NOTE | 2018-04-03 04:12 | PN ---
PROGRESS NOTE 63-year-old white male status post colectomy with colostomy. CARDIOVASCULAR: S1-S2. LUNGS: Transmitted upper airway sounds. GI: Soft. PSYCH: Anxious, nervous, depressed. Apparently he has pulled out his PEG tube, his IVs today and possibly his trach. Get psychiatry counseling at this time for possible suicidal ideations and depression. Apparently, he told his she was to bribe the nurses to let him sign out and sneak out the back door. ASSESSMENT: 1. Pneumoperitoneum. 2. Esophageal carcinoma. 3. Drug-induced skin rash. 4. Status post ischemic bowel with colectomy. Continue current treatment. ( ) the next 24 to 48 hours. Psych consult pending. Valium will be given. Ativan will be held. Other pain medicines will be withheld. MMODL / IJN: [id number] /
[2018-04-03] MEDS: PIPERACILLIN-TAZOBACTAM 3.375 GM in SODIUM CHLORIDE 0.9% 100 ML IVPB SCH ×3 (09:49→23:34)
[2018-04-03] MEDS: PANTOPRAZOLE 40 MG/10 ML VIAL IV SCH (09:49)
[2018-04-03] MEDS: HYDROCORTISONE 1% CREAM 454 GM JAR TOPICAL SCH ×3 (09:50→20:12)
--- NOTE | 2018-04-03 10:01 | P.PN ---
<Radha Roblero A - Last Filed: 04/03/18 09:52> Subjective Progress Note Date: 04/03/18 HISTORY OF PRESENT ILLNESS: Patient examined at the bedside. S/P right hemicolectomy with ileostomy. Patient ripped out his epidural and IV yesterday. Patient communicating by writing on white board. Patient writes "I thought I was dreaming". Reports his pain is tolerable at this time. Tube feeding is infusing at 20cc/hr. Psych has been consulted for evaluation as patient apparently told his yesterday he wanted to go home and kill himself. Patient asking if he is going to be discharged today. Patient began crying and wrote "My left me". Explained to patient that it was 8am and his was at home and would be up to see him later as she has been here everyday to visit. Social work and case management have been working on discharge plan. The patient plans to return home at discharge rather than [facility]. PHYSICAL EXAM: VITAL SIGNS: Currently stable. GENERAL: Well-developed in no acute distress. HEENT: Trach noted. No sclera icterus. Extraocular movements grossly intact. Moist buccal mucosa. Head is atraumatic, normocephalic. Hears conversational speech. No nasal drainage. NECK: Supple without lymphadenopathy. CHEST: Non-labored respirations and equal bilateral excursions. CARDIOVASCULAR: Regular rate with regular rhythm. Palpable 2+ radial pulses. ABDOMEN: Soft. Nondistended. Ileostomy with dark brown liquid output. Gauze dressing without drainage noted. PEG tube intact. MUSCULOSKELETAL: No clubbing, cyanosis or edema. NEUROLOGIC: No focal or lateralizing signs. Cranial nerves II through XII grossly intact. PSYCH: Appropriate affect. Alert and oriented to person, place and time. SKIN: Well perfused. Good skin turgor. ASSESSMENT: 1. Pneumoperitoneum, S/P right hemicolectomy with ileostomy 2. Oropharyngeal cancer, s/p trach and peg tube placement PLAN: 1. Advance tube feedings to goal rate of 50cc/hr. 2. Psych on consult. Await evaluation. 3. Optifoam ordered. Please place to midline abdominal incision. 4. PT/OT 5. Pain control 6. Social work and case management working on discharge plan. Plan is to return home with home care rather than [facility]. Nurse practitioner note has been reviewed by physician. Signing provider agrees with the documented findings, assessment, and plan of care. Objective - Vital Signs Vital signs: Vital Signs Temp 98.5 F 04/03/18 04:00 Pulse 81 04/03/18 04:00 Resp 20 04/03/18 04:00 BP 112/62 04/03/18 04:00 Pulse Ox 100 04/03/18 04:00 Intake & Output 04/02/18 04/03/18 04/03/18 18:59 06:59 18:59 Output Total 800 2200 Balance -800 -2200 Weight 61.9 kg Output: Urine 700 1800 Stool 100 400 Other: Voiding Method Indwelling Catheter Indwelling Catheter - Labs CBC & Chem 7: 04/01/18 06:33 04/01/18 06:33 Assessment and Plan (1) Pneumoperitoneum Current Visit: Yes Status: Acute Code(s): K66.8 - OTHER SPECIFIED DISORDERS OF PERITONEUM SNOMED Code(s): 60920526 (2) S/P colectomy Current Visit: Yes Status: Acute Code(s): Z90.49 - ACQUIRED ABSENCE OF OTHER SPECIFIED PARTS OF DIGESTIVE TRACT SNOMED Code(s): 782922830 (3) Lactic acidosis Current Visit: Yes Status: Acute Code(s): E87.2 - ACIDOSIS SNOMED Code(s) : 35865777 (4) Dysphagia Current Visit: No Status: Acute Priority: High Code(s): R13.10 - DYSPHAGIA , UNSPECIFIED SNOMED Code(s): 48199588 (5) Esophageal carcinoma Current Visit: Yes Status: Chronic Priority: Medium Code(s): C15.9 - MALIGNANT NEOPLASM OF ESOPHAGUS, UNSPECIFIED SNOMED Code(s): 781899253 <Heather Yap N - Last Filed: 04/03/18 16:24> Subjective Otherwise patient surgically stable. Patient may be discharged to home with home health care when medically stable after correction of potassium and magnesium advised Objective - Vital Signs Vital signs: Vital Signs Temp 98.2 F 04/03/18 08:00 Pulse 79 04/03/18 12:00 Resp 18 04/03/18 12:00 BP 128/78 04/03/18 12:00 Pulse Ox 100 04/03/18 12:00 Intake & Output 04/02/18 04/03/18 04/03/18 18:59 06:59 18:59 Output Total 800 2200 2800 Balance -800 -2200 -2800 Weight 61.9 kg 61.9 kg Output: Urine 700 1800 2800 Stool 100 400 0 Other: Voiding Method Indwelling Catheter Indwelling Catheter Indwelling Catheter - Labs CBC & Chem 7: 04/03/18 10:16 04/03/18 10:16 Labs: Abnormal Lab Results - Last 24 Hours (Table) 04/03/18 04/03/18 Range/Units 10:16 10:16 RBC 3.77 L (4.30-5.90) m/uL Hgb 11.8 L (13.0-17.5) gm/dL Hct 35.0 L (39.0-53.0) % Lymphocytes # 0.7 L (1.0-4.8) k/uL Potassium 2.9 L (3.5-5.1) mmol/L BUN 3 L (9-20) mg/dL Creatinine 0.43 L (0.66-1.25) mg/dL Glucose 134 H (74-99) mg/dL Magnesium 1.5 L (1.6-2.3) mg/dL Assessment and Plan (1) Lactic acidosis Current Visit: Yes Status: Acute Code(s): E87.2 - ACIDOSIS SNOMED Code(s) : 03683175 (2) Large bowel ischemia Current Visit: Yes Status: Acute Code(s): K55.9 - VASCULAR DISORDER OF INTESTINE, UNSPECIFIED SNOMED Code(s): 30375700 (3) Pneumatosis intestinalis of large intestine Current Visit: Yes Status: Acute Code(s): K63.89 - OTHER SPECIFIED DISEASES OF INTESTINE SNOMED Code(s): 867663795 (4) Dysphagia Current Visit: No Status: Acute Priority: High Code(s): R13.10 - DYSPHAGIA , UNSPECIFIED SNOMED Code(s): 20127815 (5) Esophageal carcinoma Current Visit: Yes Status: Chronic Priority: Medium Code(s): C15.9 - MALIGNANT NEOPLASM OF ESOPHAGUS, UNSPECIFIED SNOMED Code(s): 014103754 (6) Pharyngeal mass Current Visit: No Status: Acute Priority: High Code(s): J39.2 - OTHER DISEASES OF PHARYNX SNOMED Code(s): 075150945 (7) Squamous cell carcinoma Current Visit: No Status: Acute Priority: High Code(s): C44.92 - SQUAMOUS CELL CARCINOMA OF SKIN, UNSPECIFIED SNOMED Code(s): 301376638 (8) Tracheostomy malfunction Current Visit: No Status: Acute Code(s): J95.03 - MALFUNCTION OF TRACHEOSTOMY STOMA SNOMED Code(s): 190042591 (9) Gastroesophageal reflux Current Visit: Yes Status: Acute Code(s): K21.9 - GASTRO-ESOPHAGEAL REFLUX DISEASE WITHOUT ESOPHAGITIS SNOMED Code(s): 175659978 (10) Anxiety Current Visit: Yes Status: Acute Code(s): F41.9 - ANXIETY DISORDER, UNSPECIFIED SNOMED Code(s): 04836381
[2018-04-03 10:46] LABS: Basophils % (A) 0 %; Eosinophils # (A) 0.4 k/uL (0-0.7); Eosinophils % (A) 5 %; HGB 11.8 gm/dL (13.0-17.5); Lymphocytes # (A) 0.7 k/uL (1.0-4.8); Lymphocytes % (A) 9 %; MCH 31.4 pg (25.0-35.0); MCHC 33.8 g/dL (31.0-37.0); MCV 92.9 fL (80.0-100.0); Mean Platelet Volume 7.9; Monocytes # (A) 0.4 k/uL (0-1.0); Monocytes % (A) 5 %; Neutrophils # (A) 6.2 k/uL (1.3-7.7); Neutrophils % (A) 80 %; Platelet Count 287 k/uL (150-450); RBC 3.77 m/uL (4.30-5.90); RDW 13.5 % (11.5-15.5); WBC 7.7 k/uL (3.8-10.6)
[2018-04-03 10:59] LABS: Anion Gap 6 mmol/L; Blood Urea Nitrogen 3 mg/dL (9-20); Calcium 8.5 mg/dL (8.4-10.2); Carbon Dioxide 28 mmol/L (22-30); Chloride 104 mmol/L (98-107); Glucose 134 mg/dL (74-99); Magnesium 1.5 mg/dL (1.6-2.3); Potassium 2.9 mmol/L (3.5-5.1); Sodium 138 mmol/L (137-145)
[2018-04-03] MEDS: HYDROcodone/APAP 10-325MG 1 EACH TAB PO PRN ×2 (12:46→20:13)
[2018-04-03] MEDS: SODIUM CHLORIDE 0.9% 1,000 ML IV SCH (12:48)
[2018-04-03] MEDS ORDERED: Magnesium Replacement Protocol 1 EACH MISC MISCELLANE PRN (15:12)
[2018-04-03] MEDS ORDERED: Potassium Replacement Protocol 1 EACH MISC MISCELLANE PRN (15:13)
--- NOTE | 2018-04-03 15:36 | P.CN ---
Psychiatric Consult - . Consult date: 04/03/18 Consult:: 04/03/18 13:27 states he wants to go home and kill himself although his interaction with clinicians status mental status examination normal Assessment and Plan Assessment: 63-year-old male with recent diagnosis of throat cancer with trach in place as well as headache 2. Presents today for chief complaint of abdominal pain x 1 day. Family states patient told him last night he was vomiting and having diarrhea last night throughout the course of the night and complaining of abdominal pain. She denies any melena, hematochezia or hematemesis. She is unable to localize a dull pain, stating it is diffuse. Patient denies any radiation of pain. Eyes having experienced this in the past. Familed stated they did note a small amount of redness and discharge from the PEG tube, deny dysfunction. Pt PEG tube was placed by Dr. García. Patient was evaluated 2 days prior for PEG tube placement and difficulty breathing. Patient states when patient's anxiety appears high and he has not taken his medication he appear short of breath, however when he does take his medication he appears comfortable. Patient states that since discharge patient has not been complaining of shortness of breath however this new complaint of abdominal pain nausea, vomiting and diarrhea. Patient is due for chemotherapy on Sunday. Patient uses board, nodding and shaking head to answer review of systems, denies any other positive, patient denies any recent fever, chills, chest pain, back pain, numbness or tingling, dysuria or hematuria, headaches or visual changes, or any other complaints. Upon arrival pt appears uncomfortable. HR elevated. (Gris Sosa) - Related Data Home Medications Medication Instructions Recorded Confirmed HYDROcodone/APAP 5-325MG [[place] 1 - 2 tab PO Q4H PRN 02/20/18 03/30/18 5-325] Hyoscyamine Sulfate [Levsin-Sl] 0.125 mg SUBLINGUAL Q4H 02/20/18 03/30/18 fentaNYL 25MCG/HR PATCH [Duragesic 1 patch TRANSDERM Q72H 02/20/18 03/30/18 25MCG/HR] LORazepam [Ativan] 1 mg PO TID PRN 03/04/18 03/30/18 Pantoprazole [Protonix] 40 mg PO DAILY 03/04/18 03/30/18 Previous Rx's Medication Instructions Recorded Loratadine [Claritin] 10 mg PO DAILY PRN #30 tab 11/20/17 Ondansetron HCl [Zofran] 4 mg PO Q6HR PRN #20 tablet 11/26/17 Allergies Allergy/AdvReac Type Severity Reaction Status Date / Time No Known Allergies Allergy Verified 03/30/18 14:53 Past Medical History Past Medical History: Cancer Additional Past Medical History / Comment(s): throat cancer History of Any Multi-Drug Resistant Organisms: None Reported Past Surgical History: No Surgical Hx Reported Additional Past Surgical History / Comment(s): tracheostomy, and PEG tube Past Anesthesia/Blood Transfusion Reactions: No Reported Reaction Past Psychological History: Anxiety Smoking Status: Former smoker Past Alcohol Use History: None Reported Past Drug Use History: None Reported - Past Family History Father Family Medical History: Cancer Additional Family Medical History / Comment(s): prostate cancer that spread to the brain Mother Family Medical History: Cancer Additional Family Medical History / Comment(s): ovarian cancer Sister(s) Family Medical History: Cancer Additional Family Medical History / Comment(s): breast cancer Mental Status Examination - General Appearance: [ casual, appears older than stated age Speech/Language: [ slow, soft Attitude/Behavior: [ guarded, withdrawn Mood: [depressed, anxious, irritable, fearful, hopelessness Affect: [lively, flat, Orientation: [time, person, place situation] Thought Content: [wnl, Risk Factors: [denies suicidal (ideations, plan), and/or Homicidal (ideations, plan), other] Perception: [hallucinations ( visual, Thought Processes: [goal-oriented Concentration/Attention Span: [ impaired] [Per observation and interview with the patient] Recent Memory: [wnl] [3 out of 3 in 3 minutes] Remote Memory: [wnl, ] [past events, as related history] Intelligence: [average] [based on history, based on vocabulary, syntax, grammar , and content] Judgement: [good] [per patient's behavior/history of present illness] Insight: [good [understanding severity of illness/history of present illness Psychiatric impression:adjustment disorder with psychosis Psychiatric recommendation:zoloft 25 mg and risperdal 1 mg po qhs Thank you for the consult Corky An D.O. PhD] (1) Adjustment disorder with depressed mood Current Visit: Yes Status: Acute Priority: High Code(s): F43.21 - ADJUSTMENT DISORDER WITH DEPRESSED MOOD SNOMED Code(s): 16665302 Time with Patient: Greater than 30
--- NOTE | 2018-04-03 16:50 | P.PN ---
Progress Note - Text Progress Note Date: 04/03/18 I personally came bedside where the patient's mood has improved. He is aware that I will be out of town for the rest of the week with care being observed by covering surgeon. Patient has not had any ostomy teaching. I personally spoke to Thalia Cameron who will see the patient tomorrow morning prior to transfer to rehab.
--- NOTE | 2018-04-03 17:54 | P.PN ---
Subjective Progress Note Date: 04/03/18 Principal diagnosis: Pneumoperitoneum He is feeling much better today, just still very weak and decreased performance Objective - Vital Signs Vital signs: Vital Signs Temp 98.2 F 04/03/18 08:00 Pulse 79 04/03/18 16:00 Resp 18 04/03/18 16:00 BP 128/78 04/03/18 12:00 Pulse Ox 100 04/03/18 12:00 Intake & Output 04/02/18 04/03/18 04/03/18 18:59 06:59 18:59 Output Total 800 2200 2800 Balance -800 -2200 -2800 Weight 61.9 kg 61.9 kg Output: Urine 700 1800 2800 Stool 100 400 0 Other: Voiding Method Indwelling Catheter Indwelling Catheter Indwelling Catheter - Exam Gen: No acute distress alert Next: trach collar rashing from treatment on face and neck Lungs: Rhonchi and diminished, no increased effort Heart: tachy, Reg Abdomen: Sofdt, Tender, Gaurding, evidence surgery Extrem: No edema Neuurolog: Alert and appropriate - Labs CBC & Chem 7: 04/03/18 10:16 04/03/18 10:16 Labs: Abnormal Lab Results - Last 24 Hours (Table) 04/03/18 04/03/18 Range/Units 10:16 10:16 RBC 3.77 L (4.30-5.90) m/uL Hgb 11.8 L (13.0-17.5) gm/dL Hct 35.0 L (39.0-53.0) % Lymphocytes # 0.7 L (1.0-4.8) k/uL Potassium 2.9 L (3.5-5.1) mmol/L BUN 3 L (9-20) mg/dL Creatinine 0.43 L (0.66-1.25) mg/dL Glucose 134 H (74-99) mg/dL Magnesium 1.5 L (1.6-2.3) mg/dL Assessment and Plan Plan: Assessment and Recommendations: 1. Head and Neck Cancer: - Currently on Chemotherapy, status Post Cycle Two with Carboplatin, Taxol and Erbitux (Antibody) - Treatment on hold until acute situation improved/resolved 2. Persistent abdomen Pain, Nausea, Vomiting and Diarrhea: - Ststus post surgicval intervention, recovering well 3. Depression and Anxiety further related to diagnosis and treatment entities - [employer] in cancer center is following along with patient 4. Increased Secretions secondary to treatment and malignancy - this appears to be one of patients main focus's of distress - Speech therapy after initial acute situation resolved. - New Trach Placed and patient is happier about this, much more comfortable Plan: - Will hold chemotherapy at this time till improved performance and recovery of surgery, will await re-evaluation after ECF - Rehab Physician Attest: I have discussed the above history and physical and devloped the complete impression and plan and agree with dictation, dictated as a scribe.
[2018-04-03] MEDS: MAGNESIUM SULFATE-D5W PMX 1 GM in DEXTROSE/WATER 1 100ML.BAG IVPB SCH ×2 (18:05→20:15)
[2018-04-03] MEDS: POTASSIUM BICARBONATE/CIT AC 20 MEQ TABLET.EFF NG-TUBE SCH ×3 (18:06→21:59)
[2018-04-03] MEDS: HYOSCYAMINE ORAL DROPS 1.875 MG/15 ML BOTTLE PO PRN ×2 (18:07→22:00)
[2018-04-03] MEDS: HEPARIN SODIUM,PORCINE 5,000 UNIT/ML 1 ML VIAL SQ SCH ×2 (20:00→20:14)
[2018-04-03] MEDS ORDERED: SERTRALINE 25 MG TAB PEG/G-TUBE SCH (21:00)
[2018-04-03] MEDS ORDERED: risperiDONE ORAL SOLN 5 MG/5 ML CUP PEG/G-TUBE SCH (21:00)
[2018-04-04] MEDS: SODIUM CHLORIDE 0.9% 1,000 ML IV SCH ×2 (01:30→17:53)
[2018-04-04] MEDS: MORPHINE SULFATE 4 MG/ML SYRINGE IV PRN ×2 (02:41→10:40)
--- NOTE | 2018-04-04 05:05 | PN ---
PROGRESS NOTE SUBJECTIVE: This is a 63-year-old white male status post day 2 colectomy due to ischemic bowel. Patient is less confused than yesterday. He was seen by psychiatrist ordered Risperdal and Zoloft for depression. Continues on antibiotics for prophylactic postsurgical. Much less confused at this time. Ajit tube placed tonight, which will be done. Vital signs stable, afebrile. CARDIOVASCULAR: S1, S2. LUNGS: Clear. GI: Soft. HEMATOLOGY: Negative Homans. ASSESSMENT: 1. Esophageal cancer. 2. Depression. 3. Status post colectomy. PLAN: Risperdal, Zoloft started. Continue pain control. Please see further orders. MMODL / IJN: [id number] /
[2018-04-04] MEDS: PIPERACILLIN-TAZOBACTAM 3.375 GM in SODIUM CHLORIDE 0.9% 100 ML IVPB SCH ×2 (09:01→18:10)
[2018-04-04 10:31] LABS: Anion Gap 6 mmol/L; Blood Urea Nitrogen 3 mg/dL (9-20); Calcium 8.9 mg/dL (8.4-10.2); Carbon Dioxide 31 mmol/L (22-30); Chloride 104 mmol/L (98-107); Glucose 138 mg/dL (74-99); Potassium 3.6 mmol/L (3.5-5.1); Sodium 141 mmol/L (137-145)
[2018-04-04] MEDS: PANTOPRAZOLE 40 MG/10 ML VIAL IV SCH (10:39)
[2018-04-04] MEDS: HEPARIN SODIUM,PORCINE 5,000 UNIT/ML 1 ML VIAL SQ SCH (10:39)
[2018-04-04] MEDS: HYDROCORTISONE 1% CREAM 454 GM JAR TOPICAL SCH ×2 (10:39→12:59)
[2018-04-04 11:55] VITALS: RESP 16
[2018-04-04] MEDS: HYOSCYAMINE ORAL DROPS 1.875 MG/15 ML BOTTLE PO PRN (12:58)
[2018-04-04 14:23] VITALS: BMI 23.1
[2018-04-04 18:54] VITALS: BP 139/80; PULSE 100; TEMP 98.7
--- NOTE | 2018-04-04 22:42 | P.PN ---
Progress Note - Text Progress Note Date: 04/04/18 Patient was seen today prior to discharge. Doing well at this time. He is tolerating his diet. He was doing ostomy changes with the ostomy nurse today. He is anxious to go home today. He is afebrile. Incision is clean and dry. Patient will follow up in one week to [address] العلي.
--- NOTE | 2018-04-05 11:07 | CDI ---
Documentation Clarification Form Date: 04/05/2018 9:51:00 AM From: Jada Miller Nikki Manning, [address] Hours-8:30 am & 5 pm M-F Admit Date: 03/30/2018 2:24:00 PM Patient Name: Jonathan Dotson Visit Number: [id number] Discharge Date: 04/04/2018 7:48:00 PM ATTENTION: The Clinical Documentation Specialists (CDI) and [facility] Coding Staff appreciate your assistance in clarifying documentation. Please respond to the clarification below the line at the bottom and electronically sign. The CDI & [facility] Coding staff will review the response and follow-up if needed. Please note: Queries are made part of the Legal Health Record. If you have any questions, please contact the author of this message via ITS. Dr. Raphael Kaufman Sepsis criteria met is documented in the ED Note. History/Risk Factors: Ischemia intestine, Trach/ PEG status WBC 9.1, 10.8, 7.6 Lactic acid: 4.7, 1.8 Vitals signs on admission: T 97.3, BP 127/89, IA 107, RR 20 Treatment: IV abx In your professional opinion, please clarify if these findings signify one of the following conditions. Sepsis ruled out Sepsis ruled in Severe Sepsis Septic Shock Other, please specify Unable to determine MTDD
--- NOTE | 2018-04-09 05:55 | DS ---
DISCHARGE SUMMARY Please add to the discharge DISCHARGE DIAGNOSIS: Sepsis, ruled in. MMODL / IJN: [id number] /
== END 2018-04-04 19:48 | disposition home health service (06) | DRG 854 ==
LOC: EC 11:20 → 3SCARD 14:24
PROVIDERS: ADMIT Family Medicine; ATTEND Family Medicine
PROC: 0D1B0Z4 Bypass Ileum to Cutaneous, Open Approach (ICD-10-PCS; 2018-03-31)
PROC: 0DTF0ZZ Resection of Right Large Intestine, Open Approach (ICD-10-PCS; principal; 2018-03-31 10:00)
PROC: 3E0G76Z Introduction of Nutritional Substance into Upper GI, Via Natural or Artificial Opening (ICD-10-PCS; 2018-04-01)
DX: A41.9 Sepsis, unspecified organism (principal); K55.9 Vascular disorder of intestine, unspecified; E87.2 Acidosis; C77.0 Secondary and unspecified malignant neoplasm of lymph nodes of head, face and neck; Z93.0 Tracheostomy status; K66.8 Other specified disorders of peritoneum; Z93.1 Gastrostomy status; R13.10 Dysphagia, unspecified; C14.8 Malignant neoplasm of overlapping sites of lip, oral cavity and pharynx; F41.9 Anxiety disorder, unspecified; K21.9 Gastro-esophageal reflux disease without esophagitis; K63.89 Other specified diseases of intestine; C44.92 Squamous cell carcinoma of skin, unspecified; F32.9 Major depressive disorder, single episode, unspecified; G89.3 Neoplasm related pain (acute) (chronic); L27.0 Generalized skin eruption due to drugs and medicaments taken internally; F43.21 Adjustment disorder with depressed mood; K57.30 Diverticulosis of large intestine without perforation or abscess without bleeding; R00.0 Tachycardia, unspecified; Z66 Do not resuscitate; T45.1X5A Adverse effect of antineoplastic and immunosuppressive drugs, initial encounter; T50.906A Underdosing of unspecified drugs, medicaments and biological substances, initial encounter; Z91.128 Patient's intentional underdosing of medication regimen for other reason; Z79.899 Other long term (current) drug therapy; Z92.21 Personal history of antineoplastic chemotherapy; Z87.891 Personal history of nicotine dependence; Z80.42 Family history of malignant neoplasm of prostate; Z80.3 Family history of malignant neoplasm of breast
CPT/HCPCS: 36415; 71275; 74177; 80048; 80053; 81001; 82150; 83605; 83690; 83735; 84100; 84484; 85025; 85610; 85730; 86850; 86900; 86901; 88307; 96361; 96374; 96375; 99285

== ENCOUNTER 2018-04-19 21:50 | Emergency (ER) | payer OTHER ==
--- NOTE | 2018-04-19 22:15 | ED ---
General Adult HPI - General Chief complaint: Abdominal Pain Stated complaint: Inverted stoma Time Seen by Provider: 04/19/18 22:05 Source: patient Mode of arrival: ambulatory Limitations: no limitations - History of Present Illness Initial comments: Dictation was produced using [employer] dictation software. please excuse any grammatical, word or spelling errors. Chief Complaint: 63-year-old male with past medical history of throat cancer, tracheostomy, PEG tube, ostomy resents with inverted ostomy and abdominal pain. History of Present Illness: 60-year-old male with past medical history of throat cancer, tracheostomy, PEG tube, ostomy presents with inverted ostomy and abdominal pain. Patient was sent in by his home nurse come to the emergency department for further care. He was told that he will likely need an ultrasound and surgical consultation for further intervention of his ostomy. His ostomy procedure was allegedly performed by Dr. Yap. Chart review shows that patient had this procedure performed and UA. This is a right lower quadrant and ileostomy. Patient states she's been having these symptoms of abdominal pain at his stoma site intermittently for approximately one week. His family member noted that his stoma is inverted. The ROS documented in this emergency department record has been reviewed and confirmed by me. Those systems with pertinent positive or negative responses have been documented in the HPI. All other systems are other negative and/or noncontributory. PHYSICAL EXAM: General Impression: Alert and oriented x3, not in acute distress HEENT: Normocephalic atraumatic, extra-ocular movements intact, pupils equal and reactive to light bilaterally, mucous membranes moist, trach in place Cardiovascular: Heart regular rate and rhythm, S1&S2 audible, no murmurs, rubs or gallops Chest: Lungs clear to auscultation bilaterally, no rhonchi, no wheeze, no rales Abdomen: Bowel sounds present, abdomen soft, mild diffuse abdominal tenderness, non-distended, no organomegaly, and ileostomy site is in place with stool in the ostomy bag Musculoskeletal: Pulses present and equal in all extremities, no peripheral edema Motor: Power 5/5 bilaterally, no focal deficits noted Neurological: CN II-XII grossly intact, no focal motor or sensory deficits noted Skin: Intact with no visualized rashes Psych: Normal affect and mood ED course: 63-year-old male presents with ileostomy inversion. Vital signs upon arrival are within acceptable limits.Patient stoma appears well on physical examination. Patient stoma was not in fact inverted however slightly retracted according to what patient's family member says. Patient has significant skin breakdown about the area abdomen surrounding the stoma. Patient is given stoma adhesive and stoma bag was replaced.X-ray was performed showing no acute processes. Still that was replaced. Patient instructed and counseled on appropriate stoma bag placement. Patient is provided some of stoma adhesive powder. Stoma bag was placed and was functioning appropriately. There is no leakage noted. Consultation on appropriate stoma site care. Patient case was discussed with Dr. Cespedes who agrees with the plan he had no further check shins on stoma site care. Patient clear for discharge. Told to follow-up with general surgeon. - Related Data Home Medications Medication Instructions Recorded Confirmed HYDROcodone/APAP 5-325MG [[place] 1 - 2 tab PO Q4H PRN 02/20/18 04/19/18 5-325] Hyoscyamine Sulfate [Levsin-Sl] 0.125 mg SUBLINGUAL Q4H 02/20/18 04/19/18 fentaNYL 25MCG/HR PATCH [Duragesic 1 patch TRANSDERM Q72H 02/20/18 04/19/18 25MCG/HR] LORazepam [Ativan] 1 mg PO TID PRN 03/04/18 04/19/18 Pantoprazole [Protonix] 40 mg PO DAILY 03/04/18 04/19/18 Cool Solution (Unknown) 5 ml PO Q6HR 04/19/18 04/19/18 Previous Rx's Medication Instructions Recorded Loratadine [Claritin] 10 mg PO DAILY PRN #30 tab 11/20/17 Ondansetron HCl [Zofran] 4 mg PO Q6HR PRN #20 tablet 11/26/17 Sertraline [Zoloft] 25 mg PEG/G-TUBE HS tab 04/04/18 risperiDONE ORAL SOLN [RisperDAL 1 mg PEG/G-TUBE HS cup 04/04/18 ORAL SOLN] Allergies Allergy/AdvReac Type Severity Reaction Status Date / Time adhesive tape AdvReac Rash/Hives Verified 04/19/18 22:30 latex AdvReac Rash/Hives Verified 04/19/18 22:30 Review of Systems ROS Statement: Those systems with pertinent positive or pertinent negative responses have been documented in the HPI. ROS Other: All systems not noted in ROS Statement are negative. Past Medical History Past Medical History: Cancer Additional Past Medical History / Comment(s): throat cancer History of Any Multi-Drug Resistant Organisms: None Reported Past Surgical History: No Surgical Hx Reported Additional Past Surgical History / Comment(s): tracheostomy, and PEG tube, colostomy Past Anesthesia/Blood Transfusion Reactions: No Reported Reaction Past Psychological History: Anxiety Smoking Status: Former smoker Past Alcohol Use History: None Reported Past Drug Use History: None Reported - Past Family History Father Family Medical History: Cancer Additional Family Medical History / Comment(s): prostate cancer that spread to the brain Mother Family Medical History: Cancer Additional Family Medical History / Comment(s): ovarian cancer Sister(s) Family Medical History: Cancer Additional Family Medical History / Comment(s): breast cancer General Exam Limitations: no limitations Course Vital Signs 04/19/18 04/19/18 21:55 23:37 Temperature 97.7 F 98.1 F Pulse Rate 95 76 Respiratory 20 17 Rate Blood Pressure 112/68 126/83 O2 Sat by Pulse 98 99 Oximetry Disposition Clinical Impression: Dermatitis, History of creation of ostomy Disposition: HOME SELF-CARE Condition: Good Is patient prescribed a controlled substance at d/c from ED?: No Referrals: Heather Yap MD [STAFF PHYSICIAN] - 1-2 days Time of Disposition: 23:42
--- NOTE | 2018-04-19 22:55 | XR ---
EXAM: XR Abdomen, 1 Views CLINICAL HISTORY: : Pain TECHNIQUE: Frontal view of the abdomen/pelvis COMPARISON: No relevant prior studies available. FINDINGS: Intraperitoneal space: No free air. Gastrointestinal tract: Unremarkable. No dilation. Bones/joints: Unremarkable. IMPRESSION: Unremarkable KUB
[2018-04-19 23:39] VITALS: RESP 17; TEMP 98.1
[2018-04-20 01:10] VITALS: BP 146/86; PULSE 82
== END 2018-04-20 01:09 | disposition home or self-care (01) ==
LOC: EC 21:50
DX: L30.9 Dermatitis, unspecified (principal); Z87.891 Personal history of nicotine dependence; Z91.040 Latex allergy status; Z91.09 Other allergy status, other than to drugs and biological substances; Z79.891 Long term (current) use of opiate analgesic; Z79.899 Other long term (current) drug therapy; Z85.819 Personal history of malignant neoplasm of unspecified site of lip, oral cavity, and pharynx; Z93.0 Tracheostomy status; Z93.1 Gastrostomy status; Z93.2 Ileostomy status
CPT/HCPCS: 74018; 99284

== ENCOUNTER 2018-04-21 15:58 | Observation (INO) | payer OTHER ==
[2018-04-21] MEDS ORDERED: MORPHINE SULFATE 4 MG/ML SYRINGE IVP STA (16:57)
--- NOTE | 2018-04-21 17:09 | ED ---
General Adult HPI - General Chief complaint: Wound/Laceration Stated complaint: Ostomy issues Time Seen by Provider: 04/21/18 16:29 Source: patient Mode of arrival: ambulatory Limitations: no limitations - History of Present Illness Initial comments: 63-year-old male presenting with ostomy dysfunction. Patient's states the ostomy was placed 3 weeks prior. They presented on April 19 due to poor seal and the ostomy being retracted. They followed up with Dr. العلي but at that time the ostomy reverted back to normal. The states today she attempted to contact the on-call surgical physician he stated he was unable to help her. She then contacted Dr. Chavez who directed them to come to the emergency department for admission. They deny any fevers or chills but states the patient's skin is macerated secondary to the chronic stool exposure. He admits to dull pain around the ostomy site. - Related Data Home Medications Medication Instructions Recorded Confirmed HYDROcodone/APAP 5-325MG [Alpha 1 - 2 tab PO Q4H PRN 02/20/18 04/19/18 5-325] Hyoscyamine Sulfate [Levsin-Sl] 0.125 mg SUBLINGUAL Q4H 02/20/18 04/19/18 fentaNYL 25MCG/HR PATCH [Duragesic 1 patch TRANSDERM Q72H 02/20/18 04/19/18 25MCG/HR] LORazepam [Ativan] 1 mg PO TID PRN 03/04/18 04/19/18 Pantoprazole [Protonix] 40 mg PO DAILY 03/04/18 04/19/18 Cool Solution (Unknown) 5 ml PO Q6HR 04/19/18 04/19/18 Previous Rx's Medication Instructions Recorded Loratadine [Claritin] 10 mg PO DAILY PRN #30 tab 11/20/17 Ondansetron HCl [Zofran] 4 mg PO Q6HR PRN #20 tablet 11/26/17 Sertraline [Zoloft] 25 mg PEG/G-TUBE HS tab 04/04/18 risperiDONE ORAL SOLN [RisperDAL 1 mg PEG/G-TUBE HS cup 04/04/18 ORAL SOLN] Allergies Allergy/AdvReac Type Severity Reaction Status Date / Time adhesive tape AdvReac Rash/Hives Verified 04/21/18 22:08 latex AdvReac Rash/Hives Verified 04/21/18 22:08 Review of Systems ROS Statement: Those systems with pertinent positive or pertinent negative responses have been documented in the HPI. Review of Systems Constitutional: Denies fever, chills Eyes: Denies change in vision, Denies pain Ears, nose, mouth, throat: Denies headaches, Denies sore throat Cardiovascular: Denies chest pain. Denies palpitations Respiratory: Denies shortness of breath, Denies cough Gastrointestinal: Positive abdominal pain. Denies nausea, vomiting, diarrhea. Genitourinary: Denies hematuria, Denies infections Musculoskeletal: Denies pain, Denies swelling Integumentary: Positive wound Neurological: Denies headache, focal weakness, focal numbness Psychiatric: Denies anxiety, Denies depression Hematologic/Lymphatic: Denies easy bleeding or bruising ROS Other: All systems not noted in ROS Statement are negative. Past Medical History Past Medical History: Cancer Additional Past Medical History / Comment(s): throat cancer History of Any Multi-Drug Resistant Organisms: None Reported Past Surgical History: No Surgical Hx Reported Additional Past Surgical History / Comment(s): tracheostomy, and PEG tube, colostomy Past Anesthesia/Blood Transfusion Reactions: No Reported Reaction Past Psychological History: Anxiety Smoking Status: Former smoker Past Alcohol Use History: None Reported Past Drug Use History: None Reported - Past Family History Father Family Medical History: Cancer Additional Family Medical History / Comment(s): prostate cancer that spread to the brain Mother Family Medical History: Cancer Additional Family Medical History / Comment(s): ovarian cancer Sister(s) Family Medical History: Cancer Additional Family Medical History / Comment(s): breast cancer General Exam - General Exam Comments Initial Comments: General: Awake, alert, No acute Distress HENT: Normocephalic. Atraumatic Eyes: PERRL. EOMI. No scleral icterus. No injected conjunctiva Neck: Full ROM. Tracheostomy present Chest/Lungs: Clear to auscultation bilaterally. No wheezing, rhonchi, or rales Cardiac: Regular rate, rhythm. No murmurs or rubs Abdomen/GI: Ileostomy present with liquid brown stool, macerated skin. No rebound, guarding, or rigidity. Musculoskeletal: Full ROM Skin: Warm, dry, intact. Erythematous around ostomy site. Neurologic: A/Ox3, no weakness, no sensory deficit, no abnormal gait, no coordination deficit Limitations: no limitations Course Vital Signs 04/21/18 04/21/18 04/21/18 16:25 17:30 18:00 Temperature 98.2 F Pulse Rate 95 Respiratory 18 Rate Blood Pressure 105/72 96/69 95/71 O2 Sat by Pulse 100 96 96 Oximetry 04/21/18 04/21/18 04/21/18 18:30 19:00 22:23 Temperature 98.0 F Pulse Rate 71 Respiratory 16 Rate Blood Pressure 94/75 104/77 114/77 O2 Sat by Pulse 96 97 97 Oximetry Procedures - EJ/Peripheral Line No standard instances Indications: other (patient family request secondary to multiple recent blood draws and poor vascular access ) Skin Cleansed in Sterile Fashion: Yes Size: 20 Dressing Placed: Tegaderm, tape Patient Tolerated Procedure: well, no complications Medical Decision Making - Medical Decision Making 63-year-old male presenting with ostomy dysfunction. Initial exam the patient is awake alert he's in no acute distress his vital signs are stable. He is not having any abdominal pain sides at the area of maceration surrounding his ostomy site. Attempt was made to use a convex ostomy bag for the patient's inverted ostomy. There was a better seal, however there is still stool leaking from the inferior aspect of the ostomy dressing. I spoke with Dr. Jones who was agreeable to admission with consultation to Dr. Yap for ostomy dysfunction. Patient currently stable for transfer to the floor. - Lab Data Result diagrams: 04/21/18 17:10 04/21/18 17:10 Lab Results 04/21/18 04/21/18 04/21/18 Range/Units 17:10 17:10 17:10 WBC 11.4 H (3.8-10.6) k/uL RBC 4.37 (4.30-5.90) m/uL Hgb 13.7 (13.0-17.5) gm/dL Hct 40.6 (39.0-53.0) % MCV 93.0 (80.0-100.0) fL MCH 31.3 (25.0-35.0) pg MCHC 33.7 (31.0-37.0) g/dL RDW 14.7 (11.5-15.5) % Plt Count 298 (150-450) k/uL Neutrophils % 73 % Lymphocytes % 14 % Monocytes % 8 % Eosinophils % 4 % Basophils % 1 % Neutrophils # 8.3 H (1.3-7.7) k/uL Lymphocytes # 1.6 (1.0-4.8) k/uL Monocytes # 0.9 (0-1.0) k/uL Eosinophils # 0.4 (0-0.7) k/uL Basophils # 0.1 (0-0.2) k/uL PT 11.0 (9.0-12.0) sec INR 1.0 (<1.2) Sodium 137 (137-145) mmol/L Potassium 4.3 (3.5-5.1) mmol/L Chloride 100 (98-107) mmol/L Carbon Dioxide 27 (22-30) mmol/L Anion Gap 10 mmol/L BUN 20 (9-20) mg/dL Creatinine 0.65 L (0.66-1.25) mg/dL Est GFR (CKD-EPI)AfAm >90 (>60 ml/min/1.73 sqM) Est GFR (CKD-EPI)NonAf >90 (>60 ml/min/1.73 sqM) Glucose 101 H (74-99) mg/dL Calcium 10.2 (8.4-10.2) mg/dL Disposition Clinical Impression: Complication of ostomy Disposition: ADMITTED IP TO THIS [facility] Condition: Good Referrals: Raphael Kaufman MD [Primary Care Provider] - 1-2 days Decision to Admit Reason: Admit from EC Decision Date: 04/21/18 Decision Time: 21:57
[2018-04-21 17:25] LABS: Basophils # (A) 0.1 k/uL (0-0.2); Basophils % (A) 1 %; Eosinophils # (A) 0.4 k/uL (0-0.7); Eosinophils % (A) 4 %; HCT 40.6 % (39.0-53.0); HGB 13.7 gm/dL (13.0-17.5); Lymphocytes # (A) 1.6 k/uL (1.0-4.8); Lymphocytes % (A) 14 %; MCH 31.3 pg (25.0-35.0); MCHC 33.7 g/dL (31.0-37.0); Mean Platelet Volume 7.2; Monocytes # (A) 0.9 k/uL (0-1.0); Monocytes % (A) 8 %; Neutrophils # (A) 8.3 k/uL (1.3-7.7); Neutrophils % (A) 73 %; Platelet Count 298 k/uL (150-450); RBC 4.37 m/uL (4.30-5.90); RDW 14.7 % (11.5-15.5); WBC 11.4 k/uL (3.8-10.6)
[2018-04-21 17:40] LABS: Anion Gap 10 mmol/L; Blood Urea Nitrogen 20 mg/dL (9-20); Calcium 10.2 mg/dL (8.4-10.2); Carbon Dioxide 27 mmol/L (22-30); Chloride 100 mmol/L (98-107); Glucose 101 mg/dL (74-99); Potassium 4.3 mmol/L (3.5-5.1); Sodium 137 mmol/L (137-145)
[2018-04-21] MEDS ORDERED: SODIUM CHLORIDE 0.9% 1,000 ML IV ONE (19:22)
[2018-04-21] MEDS ORDERED: NALOXONE 0.4 MG/ML 1 ML VIAL IV PRN (21:43)
[2018-04-21] MEDS ORDERED: HYDROcodone/APAP 5-325MG 1 EACH TAB PO PRN (21:48)
[2018-04-21] MEDS ORDERED: LORATADINE 10 MG TAB PO PRN (21:48)
[2018-04-21] MEDS ORDERED: ONDANSETRON 4 MG TAB PO PRN (21:48)
[2018-04-21] MEDS: MORPHINE SULFATE 4 MG/ML SYRINGE IV PRN (22:25)
[2018-04-21] MEDS: HYOSCYAMINE ORAL DROPS 1.875 MG/15 ML BOTTLE SUBLINGUAL SCH (23:49)
[2018-04-22] MEDS: HYOSCYAMINE ORAL DROPS 1.875 MG/15 ML BOTTLE SUBLINGUAL SCH ×6 (01:33→22:10)
[2018-04-22] MEDS: MORPHINE SULFATE 4 MG/ML SYRINGE IV PRN (06:55)
[2018-04-22] MEDS: LORazepam 1 MG TAB PO SCH ×2 (07:31→21:45)
[2018-04-22] MEDS: PANTOPRAZOLE 40 MG TABLET PO SCH (07:33)
[2018-04-22 11:05] VITALS: BMI 21.3
--- NOTE | 2018-04-22 12:32 | HP ---
HISTORY AND PHYSICAL CHIEF COMPLAINT: This is a 63-year-old male came in with ostomy dysfunction. Ostomy was placed 3 weeks prior. He has been to the ER twice due to ostomy seal breaking and leaking of ostomy for multiple times. He is unable to take care of it and the ER doctor is unable to fix it. He is admitted for ostomy care. MEDICATIONS: Medications at home include [place], Levsin, Duragesic patch, Ativan, Protonix. REVIEW OF SYSTEMS: Fourteen-point review of systems negative except for mentioned in HPI. Tracheostomy surgery, PEG tube, colostomy. His anxiety severe. FAMILY HISTORY: Father with prostate cancer. Mother with ovarian cancer. PHYSICAL EXAMINATION: Temperature 98.2, pulse is 90s to 105, pulse is 90 to 95, respiratory rate 16 to 18. GI: Ostomy leaking. LUNGS: Decreased breath sounds. CARDIOVASCULAR: S1, S2. INTEGUMENT: Dry mucous membranes. ASSESSMENT: 1. Complication of ostomy and ostomy dysfunction. 2. History of esophageal cancer. 3. Severe anxiety, depression, bipolar. Continue current home medicines. Await for ostomy fixing per Surgery. MMODL / IJN: [id number] /
[2018-04-22] MEDS: SODIUM CHLORIDE 0.9% 1,000 ML IV SCH (12:49)
--- NOTE | 2018-04-22 17:14 | P.GSCN ---
History of Present Illness Consult date: 04/22/18 Reason for Consult: Ileostomy difficulties History of present illness: Patient had an exporter laparotomy with end ileostomy placement approximately 3 weeks ago. This was performed by Dr. العلي. Initially was having no issues with the ileostomy however over the last week or so has had difficulty keeping the appliance intact. He has had significant leaking. He has had some irritation of the skin from that. Denies pain currently. A different ostomy appliance was placed by the stomal therapist today. Doing better currently. Review of Systems The patient denies any acute changes in vision or hearing, no chest pain or shortness of breath, no dysuria or hematuria, no headache, no runny nose, no rectal bleeding or melena, no unexplained weight loss Past Medical History Past Medical History: Cancer Additional Past Medical History / Comment(s): throat cancer History of Any Multi-Drug Resistant Organisms: None Reported Past Surgical History: No Surgical Hx Reported Additional Past Surgical History / Comment(s): tracheostomy, and PEG tube, colostomy Past Anesthesia/Blood Transfusion Reactions: No Reported Reaction Past Psychological History: Anxiety Smoking Status: Former smoker Past Alcohol Use History: None Reported Past Drug Use History: None Reported - Past Family History Father Family Medical History: Cancer Additional Family Medical History / Comment(s): prostate cancer that spread to the brain Mother Family Medical History: Cancer Additional Family Medical History / Comment(s): ovarian cancer Sister(s) Family Medical History: Cancer Additional Family Medical History / Comment(s): breast cancer Medications and Allergies Home Medications Medication Instructions Recorded Confirmed Type Loratadine [Claritin] 10 mg PO DAILY PRN #30 tab 11/20/17 04/21/18 Rx Ondansetron HCl [Zofran] 4 mg PO Q6HR PRN #20 tablet 11/26/17 04/21/18 Rx HYDROcodone/APAP 5-325MG [[place] 1 - 2 tab PEG/G-TUBE Q4H PRN 02/20/18 04/21/18 History 5-325] Hyoscyamine Sulfate [Levsin-Sl] 0.125 mg SUBLINGUAL Q4H 02/20/18 04/21/18 History fentaNYL 25MCG/HR PATCH [Duragesic 1 patch TRANSDERM Q72H 02/20/18 04/21/18 History 25MCG/HR] LORazepam [Ativan] 1 mg PO TID PRN 03/04/18 04/21/18 History Pantoprazole [Protonix] 40 mg PEG/G-TUBE DAILY 03/04/18 04/21/18 History Sertraline [Zoloft] 25 mg PEG/G-TUBE HS tab 04/04/18 04/21/18 Rx risperiDONE ORAL SOLN [RisperDAL 1 mg PEG/G-TUBE HS cup 04/04/18 04/21/18 Rx ORAL SOLN] Cool Solution (Unknown) 5 ml PO Q6HR 04/19/18 04/21/18 History Allergies Allergy/AdvReac Type Severity Reaction Status Date / Time adhesive tape AdvReac Rash/Hives Verified 04/21/18 22:08 latex AdvReac Rash/Hives Verified 04/21/18 22:08 Surgical - Exam Vital Signs Temp Pulse Resp BP Pulse Ox 98.2 F 95 18 105/72 100 04/21/18 16:25 04/21/18 16:25 04/21/18 16:25 04/21/18 16:25 04/21/18 16:25 Physical exam: General: Well-developed, malnourished appearing HEENT: Normocephalic, sclerae nonicteric, trach noted Abdomen: Nontender, nondistended, right-sided abdominal wall skin irritation with ostomy appliance intact without leakage currently Extremities: No edema Neuro: Alert and oriented Results - Labs 04/21/18 17:10 04/21/18 17:10 Abnormal Lab Results - Last 24 Hours (Table) 04/21/18 04/21/18 Range/Units 17:10 17:10 WBC 11.4 H (3.8-10.6) k/uL Neutrophils # 8.3 H (1.3-7.7) k/uL Creatinine 0.65 L (0.66-1.25) mg/dL Glucose 101 H (74-99) mg/dL Diabetes panel 04/21/18 Range/Units 17:10 Sodium 137 (137-145) mmol/L Potassium 4.3 (3.5-5.1) mmol/L Chloride 100 (98-107) mmol/L Carbon Dioxide 27 (22-30) mmol/L BUN 20 (9-20) mg/dL Creatinine 0.65 L (0.66-1.25) mg/dL Glucose 101 H (74-99) mg/dL Calcium 10.2 (8.4-10.2) mg/dL Calcium panel 04/21/18 Range/Units 17:10 Calcium 10.2 (8.4-10.2) mg/dL Pituitary panel 04/21/18 Range/Units 17:10 Sodium 137 (137-145) mmol/L Potassium 4.3 (3.5-5.1) mmol/L Chloride 100 (98-107) mmol/L Carbon Dioxide 27 (22-30) mmol/L BUN 20 (9-20) mg/dL Creatinine 0.65 L (0.66-1.25) mg/dL Glucose 101 H (74-99) mg/dL Calcium 10.2 (8.4-10.2) mg/dL Adrenal panel 04/21/18 Range/Units 17:10 Sodium 137 (137-145) mmol/L Potassium 4.3 (3.5-5.1) mmol/L Chloride 100 (98-107) mmol/L Carbon Dioxide 27 (22-30) mmol/L BUN 20 (9-20) mg/dL Creatinine 0.65 L (0.66-1.25) mg/dL Glucose 101 H (74-99) mg/dL Calcium 10.2 (8.4-10.2) mg/dL Assessment and Plan (1) Complication of ostomy Narrative/Plan: Patient's ostomy is viable. It is above the level of the skin surface currently. Hopefully with the new ostomy appliance we will have better seal. Appreciate stomal therapy input. We'll follow. Current Visit: Yes Status: Acute Code(s): [id number] - SNOMED Code(s): 227488312
[2018-04-22] MEDS: SERTRALINE 25 MG TAB PEG/G-TUBE SCH (21:45)
[2018-04-22] MEDS: risperiDONE ORAL SOLN 5 MG/5 ML CUP PEG/G-TUBE SCH (21:45)
[2018-04-22] MEDS: [UNRECOGNIZED DRUG - OTHER] PO SCH (23:35)
[2018-04-23] MEDS: HYOSCYAMINE ORAL DROPS 1.875 MG/15 ML BOTTLE SUBLINGUAL SCH ×6 (02:15→20:32)
[2018-04-23] MEDS: SODIUM CHLORIDE 0.9% 1,000 ML IV SCH ×2 (03:40→13:21)
[2018-04-23] MEDS: [UNRECOGNIZED DRUG - OTHER] PO SCH ×3 (05:14→17:22)
[2018-04-23] MEDS: PANTOPRAZOLE 40 MG TABLET PO SCH (08:42)
[2018-04-23] MEDS: LORazepam 1 MG TAB PO SCH ×2 (08:42→20:58)
--- NOTE | 2018-04-23 11:40 | FL ---
EXAMINATION TYPE: FL barium swallow w video DATE OF EXAM: 04/23/2018 MODIFIED SWALLOW / DEGLUTITION STUDY CLINICAL HISTORY: Dysphagia. TECHNIQUE: Deglutition study is performed utilizing thin liquid barium, honey and nectar thick liqui d barium, barium thick applesauce, and barium coated cracker. COMPARISON: None. FINDINGS: The oral and pharyngeal phases show satisfactory initiation and propagation with all modali ties tested. There is vallecular pooling. There is penetration upon ingestion of thin barium, honey, and nectar. 1.39 minutes of fluoroscopy. No images submitted. IMPRESSION: Aspiration as discussed above.
[2018-04-23 11:48] LABS: Glucose,Whole Blood 102 mg/dL (75-99)
--- NOTE | 2018-04-23 12:22 | P.PN ---
<Radha Roblero A - Last Filed: 04/23/18 12:17> Subjective Progress Note Date: 04/23/18 CHIEF COMPLAINT: Colostomy leaking/surrounding skin irritation HISTORY OF PRESENT ILLNESS: Patient examined at the bedside. Patient is awake and alert. Denies abdominal pain. Denies nausea or vomiting. Colostomy broke open last night and had to be changed. However, since that time colostomy seal has been intact without leakage. Tube feedings are infusing. PHYSICAL EXAM: VITAL SIGNS: Currently stable. GENERAL: Well-developed in no acute distress. HEENT: Trach noted. No sclera icterus. Extraocular movements grossly intact. Moist buccal mucosa. Head is atraumatic, normocephalic. Hears conversational speech. No nasal drainage. CHEST: Non-labored respirations and equal bilateral excursions. CARDIOVASCULAR: Regular rate with regular rhythm. Palpable 2+ radial pulses. ABDOMEN: Soft. Nondistended. Ostomy to right lower quadrant. PEG tube to left side of abdomen. MUSCULOSKELETAL: No clubbing, cyanosis or edema. NEUROLOGIC: No focal or lateralizing signs. Cranial nerves II through XII grossly intact. PSYCH: Appropriate affect. Alert and oriented to person, place and time. SKIN: Well perfused. Good skin turgor. ASSESSMENT: 1. Complication of ostomy, leaking PLAN: Continue tube feedings. New ostomy appliance seems to be helping. No leaking today. Ostomy resource on consult. Recommendations and input appreciated. Will continue to follow. Nurse practitioner note has been reviewed by physician. Signing provider agrees with the documented findings, assessment, and plan of care. Objective - Vital Signs Vital signs: Vital Signs Temp 97.0 F L 04/23/18 05:00 Pulse 62 04/23/18 08:00 Resp 16 04/23/18 08:00 BP 100/61 04/23/18 05:00 Pulse Ox 100 04/23/18 05:00 Intake & Output 04/22/18 04/23/18 04/23/18 18:59 06:59 18:59 Intake Total 1220 320 Balance 1220 320 Weight 58 kg 52.5 kg Intake: Intake, IV Titration 900 Amount Sodium Chloride 0.9% 1, 900 000 ml @ 75 mls/hr IV . [id number] [facility] Rx#:[id number] Tube Feeding 320 320 Other: Voiding Method Urinal Urinal Urinal # Voids 3 3 # Bowel Movements 2 - Labs CBC & Chem 7: 04/21/18 17:10 04/21/18 17:10 Labs: Abnormal Lab Results - Last 24 Hours (Table) 04/23/18 Range/Units 11:40 POC Glucose (mg/dL) 102 H (75-99) mg/dL <BronwynrolaSampson - Last Filed: 04/23/18 16:37> Subjective As above. Patient had 1 episode of leaking from the ostomy appliance last night. He has been better since that time. Tolerating diet. Will observe ostomy appliance overnight. Possible discharge tomorrow. Outpatient Port-A-Ca th planned. Objective - Vital Signs Vital signs: Vital Signs Temp 97.3 F L 04/23/18 13:00 Pulse 69 04/23/18 15:57 Resp 18 04/23/18 15:57 BP 105/64 04/23/18 13:00 Pulse Ox 100 04/23/18 13:00 Intake & Output 04/22/18 04/23/18 04/23/18 18:59 06:59 18:59 Intake Total 1220 960 Balance 1220 960 Weight 58 kg 52.5 kg Intake: Intake, IV Titration 900 Amount Sodium Chloride 0.9% 1, 900 000 ml @ 75 mls/hr IV . [id number] [facility] Rx#:[id number] Tube Feeding 320 960 Other: Voiding Method Urinal Urinal Urinal # Voids 3 3 3 # Bowel Movements 2 - Labs CBC & Chem 7: 04/21/18 17:10 04/21/18 17:10 Labs: Abnormal Lab Results - Last 24 Hours (Table) 04/23/18 Range/Units 11:40 POC Glucose (mg/dL) 102 H (75-99) mg/dL Assessment and Plan (1) Complication of ostomy Current Visit: Yes Status: Acute Code(s): [id number] - SNOMED Code(s): 234800280
[2018-04-23 16:44] LABS: Glucose,Whole Blood 126 mg/dL (75-99)
--- NOTE | 2018-04-23 20:28 | PN ---
PROGRESS NOTE SUBJECTIVE: This is a 63-year-old white male with colostomy dysfunction. He had a swallow test that showed aspiration, pooling of fluid in the throat. Remains on PEG tube feedings. Unable to get the colostomy to stop leaking. Dr. García has seen him, recommended that he stay overnight one more night to get the colostomy to stop leaking. CARDIOVASCULAR: S1, S2. LUNGS: Scattered rhonchi. Trach in neck. Colostomy intact. Some mild leaking around the edges. PSYCH: Fair mood and affect. ASSESSMENT: 1. Colostomy dysfunction. 2. Esophageal cancer. 3. Oropharyngeal dysphagia. 4. Acute hypoxemic respiratory failure with trach in place. Monitor him one more night. Possible discharge home tomorrow. Nothing by mouth due to failed swallow evaluation. MMODL / IJN: [id number] /
[2018-04-23] MEDS: risperiDONE ORAL SOLN 5 MG/5 ML CUP PEG/G-TUBE SCH (20:33)
[2018-04-23] MEDS: SERTRALINE 25 MG TAB PEG/G-TUBE SCH (20:33)
[2018-04-24] MEDS: [UNRECOGNIZED DRUG - OTHER] PO SCH ×2 (00:03→05:49)
[2018-04-24 01:01] LABS: Glucose,Whole Blood 106 mg/dL (75-99)
[2018-04-24] MEDS: HYOSCYAMINE ORAL DROPS 1.875 MG/15 ML BOTTLE SUBLINGUAL SCH ×3 (01:45→09:31)
[2018-04-24] MEDS: SODIUM CHLORIDE 0.9% 1,000 ML IV SCH (05:59)
[2018-04-24 06:56] LABS: Glucose,Whole Blood 113 mg/dL (75-99)
[2018-04-24] MEDS: PANTOPRAZOLE 40 MG TABLET PO SCH (09:31)
[2018-04-24] MEDS: LORazepam 1 MG TAB PO SCH (09:31)
[2018-04-24 12:03] LABS: Glucose,Whole Blood 123 mg/dL (75-99)
--- NOTE | 2018-04-24 12:22 | P.PN ---
Subjective Progress Note Date: 04/24/18 Principal diagnosis: Ileostomy dysfunction Patient doing well today. No drainage from the ostomy appliance over night. No pain at this time. Tolerating diet. Objective - Vital Signs Vital signs: Vital Signs Temp 97.9 F 04/24/18 04:56 Pulse 69 04/24/18 08:00 Resp 16 04/24/18 08:00 BP 108/70 04/24/18 04:56 Pulse Ox 99 04/24/18 04:56 Intake & Output 04/23/18 04/24/18 04/24/18 18:59 06:59 18:59 Intake Total 960 690 240 Balance 960 690 240 Intake: Tube Feeding 960 690 240 Other: Voiding Method Urinal Toilet Toilet Urinal Urinal # Voids 3 - Exam Abdomen: Soft, nondistended, ostomy intact, parastomal skin irritation improved - Labs CBC & Chem 7: 04/21/18 17:10 04/21/18 17:10 Labs: Abnormal Lab Results - Last 24 Hours (Table) 04/23/18 04/24/18 04/24/18 Range/Units 16:42 00:58 06:45 POC Glucose (mg/dL) 126 H 106 H 113 H (75-99) mg/dL 04/24/18 Range/Units 11:51 POC Glucose (mg/dL) 123 H (75-99) mg/dL Assessment and Plan (1) Complication of ostomy Narrative/Plan: Agree with plans for discharge. Will schedule outpatient Port-A-Cath placement. Current Visit: Yes Status: Acute Code(s): [id number] - SNOMED Code(s): 457595842
[2018-04-24 13:05] VITALS: BP 118/72; PULSE 77; RESP 18; TEMP 97.8
== END 2018-04-24 13:35 | disposition home health service (06) ==
LOC: EC 15:58 → 3NMEDONC 21:44
PROVIDERS: ADMIT Family Medicine; ATTEND Family Medicine
DX: K94.13 Enterostomy malfunction (principal); J96.01 Acute respiratory failure with hypoxia; R13.12 Dysphagia, oropharyngeal phase; F41.9 Anxiety disorder, unspecified; F31.9 Bipolar disorder, unspecified; C14.0 Malignant neoplasm of pharynx, unspecified; C15.9 Malignant neoplasm of esophagus, unspecified; Z87.891 Personal history of nicotine dependence; Z91.040 Latex allergy status; Z91.048 Other nonmedicinal substance allergy status; Z79.899 Other long term (current) drug therapy; Z80.3 Family history of malignant neoplasm of breast; Z80.41 Family history of malignant neoplasm of ovary; Z80.42 Family history of malignant neoplasm of prostate; Z80.8 Family history of malignant neoplasm of other organs or systems; Z93.0 Tracheostomy status; Z93.1 Gastrostomy status
CPT/HCPCS: 96376 ×2; 96361; 96374; 99284; 36415; 92610; 92526; 92611; 80048; 85025; 85610; 74230; G0378 ×4; J2270 ×2

== ENCOUNTER → 2018-04-26 | Day surgery (SDC) | payer OTHER ==
[2018-04-25 10:45] VITALS: BMI 21.6
[~2018-04-26] MED LIST: DEXAMETHASONE SOD PHOSPHATE 10 MG/ML 1 ML VIAL IV ONE; HEPARIN SODIUM,PORCINE 100 UNIT/ML 5 ML VIAL IV ONE; HEPARIN SODIUM,PORCINE 5,000 UNIT/ML 1 ML VIAL SQ ONE; HYDROcodone/APAP 5-325MG 1 EACH TAB PO PRN; HYDROmorphone 0.5 MG/0.5 ML SYRINGE IVP PRN; LACTATED RINGERS 1,000 ML IV SCH; LIDOCAINE (PF) 10 MG/ML 2 ML VIAL SQ ONE; LIDOCAINE 1% 20 ML VIAL (10MG/ML) FOR IV START INTRADERMA PRN; LIDOCAINE 1% INJ 10MG/ML (20 ML MDV) ONE; MIDAZOLAM (PF) 2 MG/2 ML VIAL IV PRN; MIDAZOLAM 2 MG/2 ML VIAL ONE; NALOXONE 0.4 MG/ML 1 ML VIAL IV PRN; ONDANSETRON 4 MG/2 ML VIAL IVP ONE; PHENYLEPHRINE-0.9% NACL SYG 1 MG/10 ML SYRINGE ONE; PROPOFOL 10 MG/ML 20 ML VIAL IV ONE; Pre Op ABX Message 1 EACH MISC MISCELLANE ONE; SCOPOLAMINE 1.5MG/72HR PATCH TRANSDERM ONE; SODIUM CHLORIDE 0.9% 50 ML with ceFAZolin 1,000 MG IV ONE; SUCCINYLCHOLINE CHLORIDE 100 MG/5 ML SYR IV ONE; fentaNYL (PF) 50 MCG/ML 2 ML AMP ONE
--- NOTE | 2018-04-26 07:54 | P.GSHP ---
History of Present Illness H&P Date: 04/26/18 Chief Complaint: Head and neck cancer 63-year-old male who is here today for Port-A-Cath placement. Patient being treated for head and neck cancer. Patient recently had evidence of colonic perforation requiring laparotomy and bowel resection and ileostomy. Patient to begin chemotherapy through the Port-A-Cath on Sunday. He has not had a port previously. Past Medical History Past Medical History: Cancer Additional Past Medical History / Comment(s): throat cancer History of Any Multi-Drug Resistant Organisms: None Reported Past Surgical History: No Surgical Hx Reported Additional Past Surgical History / Comment(s): tracheostomy, and PEG tube, colostomy Past Anesthesia/Blood Transfusion Reactions: No Reported Reaction Smoking Status: Former smoker - Past Family History Father Family Medical History: Cancer Additional Family Medical History / Comment(s): prostate cancer that spread to the brain Mother Family Medical History: Cancer Additional Family Medical History / Comment(s): ovarian cancer Sister(s) Family Medical History: Cancer Additional Family Medical History / Comment(s): breast cancer Medications and Allergies Home Medications Medication Instructions Recorded Confirmed Type Loratadine [Claritin] 10 mg PO DAILY PRN #30 tab 11/20/17 04/26/18 Rx Ondansetron HCl [Zofran] 4 mg PO Q6HR PRN #20 tablet 11/26/17 04/26/18 Rx HYDROcodone/APAP 5-325MG [[place] 1 - 2 tab PEG/G-TUBE Q4H PRN 02/20/18 04/26/18 History 5-325] Hyoscyamine Sulfate [Levsin-Sl] 0.125 mg SUBLINGUAL Q4H 02/20/18 04/26/18 History fentaNYL 25MCG/HR PATCH [Duragesic 1 patch TRANSDERM Q72H 02/20/18 04/26/18 History 25MCG/HR] LORazepam [Ativan] 1 mg PO TID PRN 03/04/18 04/26/18 History Pantoprazole [Protonix] 40 mg PEG/G-TUBE DAILY 03/04/18 04/26/18 History Sertraline [Zoloft] 25 mg PEG/G-TUBE HS tab 04/04/18 04/26/18 Rx risperiDONE ORAL SOLN [RisperDAL 1 mg PEG/G-TUBE HS cup 04/04/18 04/26/18 Rx ORAL SOLN] Cool Solution (Unknown) 5 ml PO Q6HR 04/19/18 04/26/18 History Allergies Allergy/AdvReac Type Severity Reaction Status Date / Time adhesive tape AdvReac Rash/Hives Verified 04/26/18 07:06 latex AdvReac Rash/Hives Verified 04/26/18 07:06 Surgical - Exam Vital Signs Temp Pulse Resp BP Pulse Ox 98.1 F 79 16 139/76 100 04/26/18 07:10 04/26/18 07:10 04/26/18 07:10 04/26/18 07:10 04/26/18 07:10 Physical exam: General: Well-developed, well-nourished HEENT: Normocephalic, sclerae nonicteric, tracheostomy in place Abdomen: Nontender, nondistended, PEG tube and ileostomy Extremities: No edema Neuro: Alert and oriented Assessment and Plan (1) Squamous cell carcinoma Narrative/Plan: Will proceed with Port-A-Cath placement at this time. Risks of bleeding, infection, DVT, pneumothorax, catheter malfunction, anesthesia related complications were discussed. The patient understands and wishes to proceed. Current Visit: No Status: Acute Priority: High Code(s): C44.92 - SQUAMOUS CELL CARCINOMA OF SKIN, UNSPECIFIED SNOMED Code(s): 689051280
[2018-04-26 09:44] VITALS: TEMP 97.2
--- NOTE | 2018-04-26 09:48 | P.OP ---
Date of Procedure: 04/26/18 Procedure(s) Performed: PREOPERATIVE DIAGNOSIS: Head and neck cancer POSTOPERATIVE DIAGNOSIS: Same PROCEDURE: Port-A-Cath placement SURGEON: Ricky EBL: Minimal ANESTHESIA: General COMPLICATIONS: None OPERATIVE PROCEDURE: Patient was brought and placed on the operative table in the supine position. The patient was sedated per anesthesia that time. The chest and neck were prepped and draped in usual sterile fashion. The ultrasound probe was used to identify the location of the right internal jugular vein. The skin was localized with lidocaine. The Seldinger needle was advanced into the IJ under ultrasound guidance. The wire was advanced through the needle under fluoroscopic guidance into the superior vena cava. A port pocket was created in the right infraclavicular location. The catheter was tunneled from the wire entrance site to the port pocket. The port was then connected to the catheter. The dilator introducer was threaded over the guidewire. The guidewire and dilator were then removed. The catheter was advanced through the introducer and introducer was then removed. The tip was seen to be in the right atrial junction. Port was flushed with both saline and a Hep-Lock solution. There was good flow both in and out of the port. The port was sutured in underlying tissues using 3-0 silk sutures. The subcutaneous tissues were reapproximated using 3-0 Vicryl sutures and the skin at both locations using 4-0 Monocryl sutures. Skin glue and sterile dressings then applied. DISPOSITION: Stable to recovery room
[2018-04-26 10:08] VITALS: RESP 16
[2018-04-26 10:14] VITALS: BP 149/87; PULSE 78
--- NOTE | 2018-04-26 10:48 | XR ---
EXAMINATION TYPE: XR chest 1V confirm line [facility] DATE OF EXAM: 04/26/2018 COMPARISON: None HISTORY: Status post Port-A-Cath placement TECHNIQUE: Single frontal view of the chest is obtained. FINDINGS: Tracheostomy tube is overlying appropriate position. There is a Port-A-Cath in the right pe ctoral region and the catheter is overlying superior vena cava via the right jugular approach. There is no focal air space opacity, pleural effusion, or pneumothorax seen. The cardiac silhouette size is within normal limits. The osseous structures are intact. IMPRESSION: No evident complication status post Port-A-Cath placement
--- NOTE | 2018-04-26 10:53 | FL ---
Fluoroscopy HISTORY: Port-A-Cath placement 5 seconds fluoroscopy time supplied to the referring clinician. 1 intraoperative C-arm images docume nt the procedure. See dictated report from general surgery.
== END ==
LOC: OR 06:46
PROVIDERS: ATTEND Surgery
DX: C76.0 Malignant neoplasm of head, face and neck (principal); K21.9 Gastro-esophageal reflux disease without esophagitis; G89.29 Other chronic pain; F11.20 Opioid dependence, uncomplicated; Z93.0 Tracheostomy status; Z93.2 Ileostomy status; Z93.1 Gastrostomy status; Z87.891 Personal history of nicotine dependence; Z85.819 Personal history of malignant neoplasm of unspecified site of lip, oral cavity, and pharynx; Z80.42 Family history of malignant neoplasm of prostate; Z80.8 Family history of malignant neoplasm of other organs or systems; Z80.41 Family history of malignant neoplasm of ovary; Z80.3 Family history of malignant neoplasm of breast; Z79.899 Other long term (current) drug therapy; Z91.040 Latex allergy status; Z91.048 Other nonmedicinal substance allergy status; Z90.49 Acquired absence of other specified parts of digestive tract
CPT/HCPCS: 77001; 36561; C1788; J2250; J2001 ×2; J1644; J1642; J1100; J2405; J3010; J0690; J2370; J0330; J2704

== ENCOUNTER → 2018-05-11 | Outpatient (CLI) | payer OTHER ==
--- NOTE | 2018-05-13 08:42 | PE ---
"EXAMINATION TYPE: PET CT fusion skull to thigh DATE OF EXAM: 05/11/2018 COMPARISON: Most recent PET/CT February 09, [address] is. Whole body CT March 30, 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 TECHNIQUE: Following the intravenous administration of 9.49 mCi of F-18 FDG, whole body images are p erformed from the skull base to the midthigh. Images are reviewed on the computer in the coronal, ax ial, and sagittal planes. Reconstructed rotating images are created on independent workstation and r eviewed on the computer. A noncontrast CT is performed in conjunction with the PET scan. SCAN: Subsequent Scan FINDINGS: SKULL BASE AND NECK: Marked interval improvement in oropharyngeal mass or neoplasm with right paraph aryngeal extension or adenopathy. Small focus of residual hypermetabolic uptake to right of midline a xial image 37 through 40 is noted measuring roughly 2.2 x 1.6 cm, there is mucosal extension to the a irway at level of the vallecula and piriform sinus. This is markedly improved over most recent PET/CT and shows continued improvement over last few neck CTs. Max SUV at this level on current study is 4. 23. Symmetric uptake at level of vocal cords axial image 51 is presumed product of phonation. There is ma rked interval improvement in right supraclavicular adenopathy with residual 1.1 x 0.8 cm ametabolic l ymph node axial image 56. No new areas of suspicious hypermetabolic uptake are seen. CHEST, MEDIASTINUM, AND HILAR REGION: No new areas of hypermetabolic uptake are present. ABDOMEN AND PELVIS: No new areas of abnormal hypermetabolic uptake are seen. OSSEOUS STRUCTURES: Persistent sclerotic focus transverse process left T9 level axial image 102 witho ut hypermetabolic uptake. No areas of abnormal hypermetabolic uptake in osseous structures identified. OTHER CT: Tracheostomy tube redemonstrated. Persistent right internal jugular Mediport catheter termi nating in SVC. New pneumomediastinum near catheter tip with air surrounding right pulmonary artery ax ial image 86. One was considerably long tracheostomy. Other etiologies not excluded. Bilateral gyneco mastia is noted. PEG tube redemonstrated. 2 mm calculus upper pole right kidney axial image 136 redemonstrated. There is new right-sided ostomy with partial right-sided colectomy. Diverticula in the transverse colon is redemonstrated. Calcification of the vas deferens bilaterally is again seen. There is 1.6 cm dependen t calculus in bladder redemonstrated. There is multilevel spurring in the spine. There is facet arthropathy lower lumbar levels. S-shaped s coliotic curvature is present. IMPRESSION: 1. Marked interval improvement in large throat cancer with right-sided extension or adenopathy. Some residual active neoplasm is present. Improvement in right-sided neck and supraclavicular adenopathy w ith no residual active enlarged adenopathy. No new suspicious hypermetabolic uptake is present. 2. New pneumomediastinum is present. Consider further clinical workup. Tracheostomy tube leak would b een differential. A Yellow level critical message alert has been initiated for Trevon Westbrook DO via the [employer] | Critical Results System on 05/13/2018 8:39 AM. This message alert has been sent to Trevon styles DO via the preferences provided by the clinician for the receipt of Radiology Critical Findings. Message ID [id number]."
== END | disposition home or self-care (01) ==
LOC: RADPETMAIN 11:07
PROVIDERS: ATTEND Radiology Radiation Oncology
DX: C14.0 Malignant neoplasm of pharynx, unspecified (principal); J98.2 Interstitial emphysema; C44.42 Squamous cell carcinoma of skin of scalp and neck; Z87.891 Personal history of nicotine dependence
CPT/HCPCS: 78815; A9552

== ENCOUNTER 2018-05-21 13:02 | Emergency (ER) | payer OTHER ==
[2018-05-21 13:12] VITALS: BP 105/64; PULSE 77; RESP 18; TEMP 97.9
--- NOTE | 2018-05-21 14:12 | XR ---
EXAMINATION TYPE: XR chest 2V DATE OF EXAM: 05/21/2018 COMPARISON: NONE HISTORY: Shortness of breath TECHNIQUE: Frontal and lateral views of the chest are obtained. FINDINGS: Scattered senescent parenchymal changes noted. Hyperinflation compatible with COPD. Tracheostomy tube is unchanged in position as is Mediport catheter. No evidence for infiltrate. No evidence for atelectasis. Heart size is stable. Mediastinal structures are stable and grossly unremarkable. No evidence for hilar prominence. Degenerative changes dorsal spine. IMPRESSION: 1. No evidence for acute pulmonary disease.
--- NOTE | 2018-05-21 14:30 | ED ---
Recheck HPI - General Chief Complaint: Recheck/Abnormal Lab/Rx Stated Complaint: air going into chest from Trach Time Seen by Provider: 05/21/18 13:25 Source: patient Mode of arrival: ambulatory Limitations: no limitations - History of Present Illness Initial Comments: 63-year-old male with history of oropharynx cancer presents today for chief complaint of sent by provider for evaluation of incidental finding of pneumomediastinum. Patient states he had a PET scan obtained 05/13/18. Pt states there was pneumomediastinum present on this imaging study. Patient states he was notified until today of the finding. He states he was told to come to the emergency department for further evaluation. Patient denies any symptoms. He denies any chest pain dyspnea dyspnea upon exertion he has a fever or chills night sweats or pain with deep inspiration. Patient states he has felt like himself he denies any changes from his baseline. Patient upon arrival is ambulating without difficulty. Vital signs within normal limits. Remaining review of systems negative, patient denies any recent back pain, abdominal pain, nausea or vomiting, numbness or tingling, dysuria or hematuria, constipation or diarrhea, headaches or visual changes, or any other complaints. - Related Data Home Medications Medication Instructions Recorded Confirmed HYDROcodone/APAP 5-325MG [[place] 1 - 2 tab PEG/G-TUBE Q4H PRN 02/20/18 05/21/18 5-325] Hyoscyamine Sulfate [Levsin-Sl] 0.125 mg SUBLINGUAL Q4H PRN 02/20/18 05/21/18 fentaNYL 25MCG/HR PATCH [Duragesic 1 patch TRANSDERM Q72H 02/20/18 05/21/18 25MCG/HR] LORazepam [Ativan] 1 mg PEG/G-TUBE TID PRN 03/04/18 05/21/18 Loratadine [Claritin] 10 mg PEG/G-TUBE DAILY PRN 05/21/18 05/21/18 Ondansetron Odt [Zofran Odt] 4 mg PO Q6H PRN 05/21/18 05/21/18 Sertraline 20mg Ml 20 mg PEG/G-TUBE HS 05/21/18 05/21/18 risperiDONE ORAL SOLN [RisperDAL 5 mg PEG/G-TUBE HS 05/21/18 05/21/18 ORAL SOLN] Allergies Allergy/AdvReac Type Severity Reaction Status Date / Time adhesive tape AdvReac Rash/Hives Verified 05/21/18 13:17 latex AdvReac Rash/Hives Verified 05/21/18 13:17 Review of Systems ROS Statement: Those systems with pertinent positive or pertinent negative responses have been documented in the HPI. ROS Other: All systems not noted in ROS Statement are negative. Past Medical History Past Medical History: Cancer Additional Past Medical History / Comment(s): esophageal cancer History of Any Multi-Drug Resistant Organisms: None Reported Past Surgical History: No Surgical Hx Reported Additional Past Surgical History / Comment(s): tracheostomy, and PEG tube, colostomy Past Anesthesia/Blood Transfusion Reactions: No Reported Reaction Past Psychological History: Anxiety Smoking Status: Former smoker Past Alcohol Use History: None Reported Past Drug Use History: None Reported - Past Family History Father Family Medical History: Cancer Additional Family Medical History / Comment(s): prostate cancer that spread to the brain Mother Family Medical History: Cancer Additional Family Medical History / Comment(s): ovarian cancer Sister(s) Family Medical History: Cancer Additional Family Medical History / Comment(s): breast cancer General Exam - General Exam Comments Initial Comments: General: The patient is awake and alert, in no distress, and does not appear acutely ill. Eye: Pupils are equal, round and reactive to light, extra-ocular movements are intact. No nystagmus. There is normal conjunctiva bilaterally. No signs of icterus. Ears, nose, mouth and throat: There are moist mucous membranes and no oral lesions. Neck: The neck is supple, there is no tenderness or JVD. Tracheostomy in place. Cardiovascular: There is a regular rate and rhythm. No murmur, rub or gallop is appreciated. Respiratory: Lungs are clear to auscultation, respirations are non-labored, breath sounds are equal. No wheezes, stridor, rales, or rhonchi. Gastrointestinal: Soft, non-distended, non-tender abdomen without masses or organomegaly noted. There is no rebound or guarding present. Musculoskeletal: No crepitus to palpation of the chest wall. Normal ROM, no tenderness. Strength 5/5. Sensation intact. Pulses equal bilaterally 2+. Neurological: A&O x 3. CN II-XII intact, There are no obvious motor or sensory deficits. Coordination appears grossly intact. Speech is normal. Skin: Skin is warm and dry and no rashes or lesions are noted. Psychiatric: Cooperative, appropriate mood & affect, normal judgment. Limitations: no limitations Course Vital Signs 05/21/18 13:08 Temperature 97.9 F Pulse Rate 77 Respiratory 18 Rate Blood Pressure 105/64 O2 Sat by Pulse 100 Oximetry Medical Decision Making - Medical Decision Making 63-year-old male presenting for evaluation of possible pneumomediastinum. Chest x-ray revealed no evidence of air in the mediastinum. This was reviewed by myself, radiology as well as attending provider Dr. Morin. Patient denies any current symptoms. Patient appears well vital signs within normal limits. Patient denies history of fever. Most likely pneumomediastinum was due to a leak of the tracheostomy. It appears as though there has resolved. Patient is asymptomatic. And imaging studies were +9 days prior. At this time we feel patient has no current pneumomediastinum and is stable for outpatient follow-up with primary care provider hematology oncology as well as Dr. Zamarripa in the next week. Patient is agreeable plan of care as well as discharge. Patient discharged appearing well I had discussed the case throughout patient's course emergency Department with attending provider Dr. Morin who recommended discharge after discussing case and history/physical at length. Disposition Clinical Impression: Need for reassessment, Pneumomediastinum Disposition: HOME SELF-CARE Condition: Good Additional Instructions: Please follow-up with family doctor in the next 2 days with ENT, Dr. Westbrook. Please return to emergency room if the symptoms increase or worsen or for any other concerns, shortness of breath, chest pain, fevers, chills or night sweats. Is patient prescribed a controlled substance at d/c from ED?: No Referrals: Raphael Kaufman MD [Primary Care Provider] - 1-2 days Trevon Westbrook DO [Doctor of Osteopathic Medicine] - 1-2 days Time of Disposition: 14:30
== END 2018-05-21 14:40 | disposition home or self-care (01) ==
LOC: EC 13:02
DX: J98.2 Interstitial emphysema (principal); F41.9 Anxiety disorder, unspecified; Z85.01 Personal history of malignant neoplasm of esophagus; Z85.818 Personal history of malignant neoplasm of other sites of lip, oral cavity, and pharynx; Z87.891 Personal history of nicotine dependence; Z79.899 Other long term (current) drug therapy; Z79.891 Long term (current) use of opiate analgesic; Z91.040 Latex allergy status; Z91.048 Other nonmedicinal substance allergy status; Z93.1 Gastrostomy status
CPT/HCPCS: 71046; 99283

== ENCOUNTER 2018-06-20 08:32 | Emergency (ER) | payer OTHER ==
[2018-06-20 08:38] VITALS: TEMP 97.7
[2018-06-20] MEDS ORDERED: SODIUM CHLORIDE 0.9% 1,000 ML IV STA (08:51)
--- NOTE | 2018-06-20 08:55 | ED ---
SOB HPI - General Chief Complaint: Shortness of Breath Stated Complaint: IMANI Time Seen by Provider: 06/20/18 08:40 Source: patient, RN notes reviewed, old records reviewed Limitations: no limitations - History of Present Illness Initial Comments: This is a 63-year-old male with a history of esophageal cancer a former smoker who states she's not been diagnosed with asthma or COPD who states he had the onset this morning of shortness of breath about 5 AM. No fevers chills nausea vomiting sweats no cough or phlegm production he does feel like his trach is not working properly. He also has been having some urinary urgency. No other complaints he does state he was seen in Dr. Barron's office yesterday by a nurse practitioner who thought she heard some crackles at the base of one of his lungs. MD Complaint: shortness of breath - Related Data Home Medications Medication Instructions Recorded Confirmed HYDROcodone/APAP 5-325MG [[place] 1 - 2 tab PEG/G-TUBE Q4H PRN 02/20/18 06/20/18 5-325] Hyoscyamine Sulfate [Levsin-Sl] 0.125 mg SUBLINGUAL Q4H PRN 02/20/18 06/20/18 fentaNYL 25MCG/HR PATCH [Durages[place] 1 patch TRANSDERM Q72H 02/20/18 06/20/18 25MCG/HR] LORazepam [Ativan] 1 mg PEG/G-TUBE TID PRN 03/04/18 06/20/18 Ondansetron Odt [Zofran Odt] 4 mg PO Q6H PRN 05/21/18 06/20/18 Sertraline 20mg Ml 20 mg PEG/G-TUBE HS 05/21/18 06/20/18 risperiDONE ORAL SOLN [RisperDAL 5 mg PEG/G-TUBE HS 05/21/18 06/20/18 ORAL SOLN] Loratadine Oral Soln [Claritin 10 mg PEG/G-TUBE DAILY PRN 06/20/18 06/20/18 Oral Soln] rOPINIRole HCL [Requip] 0.25 - 0.5 mg PEG/G-TUBE HS 06/20/18 06/20/18 Allergies Allergy/AdvReac Type Severity Reaction Status Date / Time adhesive tape Allergy Rash/Hives Verified 06/20/18 09:36 latex Allergy Rash/Hives Verified 06/20/18 09:36 Review of Systems ROS Statement: Those systems with pertinent positive or pertinent negative responses have been documented in the HPI. ROS Other: All systems not noted in ROS Statement are negative. Past Medical History Past Medical History: Cancer Additional Past Medical History / Comment(s): esophageal cancer History of Any Multi-Drug Resistant Organisms: None Reported Past Surgical History: No Surgical Hx Reported Additional Past Surgical History / Comment(s): tracheostomy, and PEG tube, colostomy Past Anesthesia/Blood Transfusion Reactions: No Reported Reaction Past Psychological History: Anxiety Smoking Status: Former smoker Past Alcohol Use History: None Reported Past Drug Use History: None Reported - Past Family History Father Family Medical History: Cancer Additional Family Medical History / Comment(s): prostate cancer that spread to the brain Mother Family Medical History: Cancer Additional Family Medical History / Comment(s): ovarian cancer Sister(s) Family Medical History: Cancer Additional Family Medical History / Comment(s): breast cancer General Exam - General Exam Comments Initial Comments: This is a well-developed well-nourished awake alert oriented history male Limitations: no limitations General appearance: alert, anxious Head exam: Present: atraumatic, normocephalic, normal inspection Eye exam: Present: normal appearance, PERRL, EOMI. Absent: scleral icterus, conjunctival injection, periorbital swelling ENT exam: Present: normal exam, mucous membranes moist Neck exam: Present: full ROM, other (Tracheostomy is in place no stridor JVD or bruits). Absent: tenderness, meningismus, lymphadenopathy Respiratory exam: Present: normal lung sounds bilaterally. Absent: respiratory distress, wheezes, rales, rhonchi, stridor Cardiovascular Exam: Present: regular rate, normal rhythm, normal heart sounds. Absent: systolic murmur, diastolic murmur, rubs, gallop, clicks GI/Abdominal exam: Present: soft, normal bowel sounds. Absent: distended, tenderness, guarding, rebound, rigid Extremities exam: Present: normal inspection, full ROM, normal capillary refill. Absent: tenderness, pedal edema, joint swelling, calf tenderness Back exam: Present: normal inspection Neurological exam: Present: alert, oriented X3, CN II-XII intact Psychiatric exam: Present: normal affect, normal mood Skin exam: Present: warm, dry, intact, normal color. Absent: rash Course Vital Signs 06/20/18 06/20/18 06/20/18 08:35 08:37 11:33 Temperature 97.7 F Pulse Rate 91 76 Respiratory 18 20 16 Rate Blood Pressure 115/74 100/67 O2 Sat by Pulse 98 100 Oximetry 06/20/18 12:00 Temperature Pulse Rate 71 Respiratory 18 Rate Blood Pressure 96/55 O2 Sat by Pulse 100 Oximetry Medical Decision Making - Medical Decision Making Patient did have an episode of hypotension which did resolve after IV fluids. Patient is asymptomatic this time especially since his inner cannula was change in his trach. I did discuss the case with Dr. Grayson at [facility] he feels at this time there is no further workup to do on this patient in light of the history and the previous trach. Patient will be discharged to follow-up with his doctor return when necessary the patient and family are in agreement with this. - Lab Data Result diagrams: 06/20/18 09:26 06/20/18 09:26 Lab Results 06/20/18 06/20/18 06/20/18 Range/Units 09:26 09:26 09:26 WBC 5.1 (3.8-10.6) k/uL RBC 3.56 L (4.30-5.90) m/uL Hgb 11.8 L (13.0-17.5) gm/dL Hct 35.0 L (39.0-53.0) % MCV 98.2 (80.0-100.0) fL MCH 33.1 (25.0-35.0) pg MCHC 33.7 (31.0-37.0) g/dL RDW 14.2 (11.5-15.5) % Plt Count 213 (150-450) k/uL Neutrophils % 85 % Lymphocytes % 6 % Monocytes % 3 % Eosinophils % 6 % Basophils % 0 % Neutrophils # 4.3 (1.3-7.7) k/uL Lymphocytes # 0.3 L (1.0-4.8) k/uL Monocytes # 0.1 (0-1.0) k/uL Eosinophils # 0.3 (0-0.7) k/uL Basophils # 0.0 (0-0.2) k/uL PT 10.0 (9.0-12.0) sec INR 0.9 (<1.2) APTT 26.1 (22.0-30.0) sec D-Dimer 0.64 H (<0.60) mg/L FEU Sodium 139 (137-145) mmol/L Potassium 3.4 L (3.5-5.1) mmol/L Chloride 106 (98-107) mmol/L Carbon Dioxide 24 (22-30) mmol/L Anion Gap 9 mmol/L BUN 13 (9-20) mg/dL Creatinine 0.37 L (0.66-1.25) mg/dL Est GFR (CKD-EPI)AfAm >90 (>60 ml/min/1.73 sqM) Est GFR (CKD-EPI)NonAf >90 (>60 ml/min/1.73 sqM) Glucose 91 (74-99) mg/dL Calcium 9.2 (8.4-10.2) mg/dL Magnesium 1.7 (1.6-2.3) mg/dL Total Bilirubin 1.5 H (0.2-1.3) mg/dL AST 24 (17-59) U/L ALT 32 (21-72) U/L Alkaline Phosphatase 63 (38-126) U/L Troponin I (0.000-0.034) ng/mL NT-Pro-B Natriuret Pep pg/mL Total Protein 6.2 L (6.3-8.2) g/dL Albumin 3.7 (3.5-5.0) g/dL Urine Color Urine Appearance (Clear) Urine pH (5.0-8.0) Ur Specific [place] (1.001-1.035) Urine Protein (Negative) Urine Glucose (UA) (Negative) Urine Ketones (Negative) Urine Blood (Negative) Urine Nitrite (Negative) Urine Bilirubin (Negative) Urine Urobilinogen (<2.0) mg/dL Ur Leukocyte Esterase (Negative) Urine RBC (0-5) /hpf Urine WBC (0-5) /hpf Amorphous Sediment (None) /hpf Urine Mucus (None) /hpf 06/20/18 06/20/18 06/20/18 Range/Units 09:26 09:26 09:26 WBC (3.8-10.6) k/uL RBC (4.30-5.90) m/uL Hgb (13.0-17.5) gm/dL Hct (39.0-53.0) % MCV (80.0-100.0) fL MCH (25.0-35.0) pg MCHC (31.0-37.0) g/dL RDW (11.5-15.5) % Plt Count (150-450) k/uL Neutrophils % % Lymphocytes % % Monocytes % % Eosinophils % % Basophils % % Neutrophils # (1.3-7.7) k/uL Lymphocytes # (1.0-4.8) k/uL Monocytes # (0-1.0) k/uL Eosinophils # (0-0.7) k/uL Basophils # (0-0.2) k/uL PT (9.0-12.0) sec INR (<1.2) APTT (22.0-30.0) sec D-Dimer (<0.60) mg/L FEU Sodium (137-145) mmol/L Potassium (3.5-5.1) mmol/L Chloride (98-107) mmol/L Carbon Dioxide (22-30) mmol/L Anion Gap mmol/L BUN (9-20) mg/dL Creatinine (0.66-1.25) mg/dL Est GFR (CKD-EPI)AfAm (>60 ml/min/1.73 sqM) Est GFR (CKD-EPI)NonAf (>60 ml/min/1.73 sqM) Glucose (74-99) mg/dL Calcium (8.4-10.2) mg/dL Magnesium (1.6-2.3) mg/dL Total Bilirubin (0.2-1.3) mg/dL AST (17-59) U/L ALT (21-72) U/L Alkaline Phosphatase (38-126) U/L Troponin I <0.012 (0.000-0.034) ng/mL NT-Pro-B Natriuret Pep 199 pg/mL Total Protein (6.3-8.2) g/dL Albumin (3.5-5.0) g/dL Urine Color Yellow Urine Appearance Turbid (Clear) Urine pH 6.5 (5.0-8.0) Ur Specific [place] 1.017 (1.001-1.035) Urine Protein 1+ H (Negative) Urine Glucose (UA) Negative (Negative) Urine Ketones Negative (Negative) Urine Blood Small H (Negative) Urine Nitrite Negative (Negative) Urine Bilirubin Negative (Negative) Urine Urobilinogen <2.0 (<2.0) mg/dL Ur Leukocyte Esterase Negative (Negative) Urine RBC 35 H (0-5) /hpf Urine WBC 6 H (0-5) /hpf Amorphous Sediment Rare H (None) /hpf Urine Mucus Rare H (None) /hpf - Radiology Data Radiology results: report reviewed (I did review the imaging and report is evidence of small amount of right subcutaneous emphysema in the neck), image reviewed Disposition Clinical Impression: Tracheostomy complication, Hypotensive episode, Dehydration, Squamous cell carcinoma Disposition: HOME SELF-CARE Condition: Good Instructions (If sedation given, give patient instructions): Tracheostomy Care (ED) Is patient prescribed a controlled substance at d/c from ED?: No Referrals: Raphael Kaufman MD [Primary Care Provider] - 1-2 days
[2018-06-20 09:38] LABS: Basophils % (A) 0 %; Eosinophils # (A) 0.3 k/uL (0-0.7); Eosinophils % (A) 6 %; HGB 11.8 gm/dL (13.0-17.5); Lymphocytes # (A) 0.3 k/uL (1.0-4.8); Lymphocytes % (A) 6 %; MCH 33.1 pg (25.0-35.0); MCHC 33.7 g/dL (31.0-37.0); MCV 98.2 fL (80.0-100.0); Mean Platelet Volume 7.7; Monocytes # (A) 0.1 k/uL (0-1.0); Monocytes % (A) 3 %; Neutrophils # (A) 4.3 k/uL (1.3-7.7); Neutrophils % (A) 85 %; Platelet Count 213 k/uL (150-450); RBC 3.56 m/uL (4.30-5.90); RDW 14.2 % (11.5-15.5); WBC 5.1 k/uL (3.8-10.6)
--- NOTE | 2018-06-20 09:53 | XR ---
EXAMINATION TYPE: XR chest 2V DATE OF EXAM: 06/20/2018 COMPARISON: 05/21/2018 HISTORY: 63-year-old male difficulty in breathing, shortness of breath TECHNIQUE: AP and lateral views FINDINGS: Tracheostomy cannula remains in place. Right anterior chest wall injection port with catheter tip at the mid SVC level. Heart normal size. Aorta within normal limits. Mild interstitial prominence is unc hanged. No consolidation or pleural effusion. There is mild subcutaneous emphysema along the base of the right neck IMPRESSION: 1. Mild subcutaneous emphysema along the right base of the neck. Correlate for potential etiologies i ncluding cellulitis with gas forming organism, tracheostomy tube leak, recent biopsy or other iatroge dulce cause, etc. 2. Otherwise, no acute cardiopulmonary process.
[2018-06-20 10:01] LABS: ALT 32 U/L (21-72); AST 24 U/L (17-59); Albumin 3.7 g/dL (3.5-5.0); Alkaline Phosphatase 63 U/L (38-126); Anion Gap 9 mmol/L; Blood Urea Nitrogen 13 mg/dL (9-20); Calcium 9.2 mg/dL (8.4-10.2); Carbon Dioxide 24 mmol/L (22-30); Chloride 106 mmol/L (98-107); Glucose 91 mg/dL (74-99); Magnesium 1.7 mg/dL (1.6-2.3); Potassium 3.4 mmol/L (3.5-5.1); Sodium 139 mmol/L (137-145); Total Bilirubin 1.5 mg/dL (0.2-1.3); Total Protein 6.2 g/dL (6.3-8.2)
[2018-06-20 10:05] LABS: INR 0.9 (<1.2); Partial Thromboplastin Time 26.1 sec (22.0-30.0)
[2018-06-20 10:15] LABS: Amorphous Sediment,Urine Rare /hpf; Appearance,Urine Turbid (Clear); Bilirubin,Urine Negative (Negative); Blood,Urine Small (Negative); Color,Urine Yellow; Glucose,Urine (UA) Negative (Negative); Ketones,Urine Negative (Negative); Leukocyte Esterase,Urine Negative (Negative); Mucus,Urine Rare /hpf; Nitrite,Urine Negative (Negative); PH, Urine 6.5 (5.0-8.0); Protein,Urine 1+ (Negative); RBC,Urine 35 /hpf (0-5); Specific Gravity,Urine 1.017 (1.001-1.035); Urobilinogen,Urine <2.0 mg/dL (<2.0)
[2018-06-20 10:25] LABS: D-Dimer 0.64 mg/L FEU (<0.60)
[2018-06-20] MEDS ORDERED: SODIUM CHLORIDE 0.9% 500 ML 500 ML IV STA (12:26)
[2018-06-20 14:04] VITALS: BP 102/68; PULSE 67; RESP 16
== END 2018-06-20 14:07 | disposition home or self-care (01) ==
LOC: EC 08:32
DX: J95.00 Unspecified tracheostomy complication (principal); E86.0 Dehydration; I95.9 Hypotension, unspecified; C44.92 Squamous cell carcinoma of skin, unspecified; J98.2 Interstitial emphysema; R39.15 Urgency of urination; F41.9 Anxiety disorder, unspecified; Z87.891 Personal history of nicotine dependence; Z85.01 Personal history of malignant neoplasm of esophagus; Z91.040 Latex allergy status; Z91.048 Other nonmedicinal substance allergy status; Z79.891 Long term (current) use of opiate analgesic; Z79.899 Other long term (current) drug therapy; Z93.1 Gastrostomy status
CPT/HCPCS: 36415; 71046; 80053; 81001; 83735; 83880; 84484; 85025; 85379; 85610; 85730; 93005; 96360; 96361; 99285

== ENCOUNTER 2018-06-25 22:04 | Emergency (ER) | payer OTHER ==
[2018-06-25 22:30] VITALS: BP 95/61; PULSE 77; RESP 19; TEMP 98.5
--- NOTE | 2018-06-25 22:52 | ED ---
Male Urogenital HPI - General Chief complaint: Urogenital Stated complaint: unable to urinate Source: patient Mode of arrival: ambulatory Limitations: language barrier - History of Present Illness Initial comments: Jonathan is a pleasant 63-year-old gentleman with a history of throat cancer for which she is undergoing chemo and radiation. Patient also has a trach. Patient presents to the emergency department today for evaluation of inability to urinate. Patient has been experiencing some dysuria for a while. He has had his urine checked multiple times in the past and has been determined to be aseptic pyuria or sterile pyuria with no bacteria found. However, this is gone, worse over the past 3-4 days and today the patient has been unable to urinate. - Related Data Home Medications Medication Instructions Recorded Confirmed HYDROcodone/APAP 5-325MG [[place] 1 - 2 tab PEG/G-TUBE Q4H PRN 02/20/18 06/25/18 5-325] Hyoscyamine Sulfate [Levsin-Sl] 0.125 mg SUBLINGUAL Q4H PRN 02/20/18 06/25/18 fentaNYL 25MCG/HR PATCH [Duragesic 1 patch TRANSDERM Q72H 02/20/18 06/25/18 25MCG/HR] LORazepam [Ativan] 1 mg PEG/G-TUBE TID PRN 03/04/18 06/25/18 Ondansetron Odt [Zofran Odt] 4 mg PO Q6H PRN 05/21/18 06/25/18 Sertraline 20mg Ml 20 mg PEG/G-TUBE HS 05/21/18 06/25/18 risperiDONE ORAL SOLN [RisperDAL 5 mg PEG/G-TUBE HS 05/21/18 06/25/18 ORAL SOLN] Loratadine Oral Soln [Claritin 10 mg PEG/G-TUBE DAILY PRN 06/20/18 06/25/18 Oral Soln] rOPINIRole HCL [Requip] 0.25 - 0.5 mg PEG/G-TUBE HS 06/20/18 06/25/18 Previous Rx's Medication Instructions Recorded Cephalexin [Keflex] 500 mg PO Q6HR 7 Days #28 cap 06/25/18 Allergies Allergy/AdvReac Type Severity Reaction Status Date / Time adhesive tape Allergy Rash/Hives Verified 06/25/18 22:43 latex Allergy Rash/Hives Verified 06/25/18 22:43 Review of Systems ROS Statement: Those systems with pertinent positive or pertinent negative responses have been documented in the HPI. ROS Other: All systems not noted in ROS Statement are negative. Past Medical History Past Medical History: Cancer Additional Past Medical History / Comment(s): esophageal cancer with trach, History of Any Multi-Drug Resistant Organisms: None Reported Past Surgical History: No Surgical Hx Reported Additional Past Surgical History / Comment(s): tracheostomy, and PEG tube, colostomy, Past Anesthesia/Blood Transfusion Reactions: No Reported Reaction Past Psychological History: Anxiety Smoking Status: Former smoker Past Alcohol Use History: None Reported Past Drug Use History: None Reported - Past Family History Father Family Medical History: Cancer Additional Family Medical History / Comment(s): prostate cancer that spread to the brain Mother Family Medical History: Cancer Additional Family Medical History / Comment(s): ovarian cancer Sister(s) Family Medical History: Cancer Additional Family Medical History / Comment(s): breast cancer General Exam - General Exam Comments Initial Comments: Physical Exam GENERAL: Chronically ill-appearing, cachectic, trach in place HENT: Temporal wasting Oral mucosa with signs of stomatitis Trach in place EYES: PERRL, EOMI PULMONARY: Unlabored respirations CARDIOVASCULAR: RRR ABDOMEN: Soft and nontender with normal bowel sounds. SKIN: Dry : Normal external genitalia, Dean catheter placed NEUROLOGIC: Minimally verbal due to painful stomatitis MUSCULOSKELETAL: Atrophy Limitations: language barrier Course Vital Signs 06/25/18 22:25 Temperature 98.5 F Pulse Rate 77 Respiratory 19 Rate Blood Pressure 95/61 O2 Sat by Pulse 100 Oximetry Medical Decision Making - Medical Decision Making Patient was seen and evaluated, history was obtained from the patient's bedside Patient has been unable to urinate throughout the day today. Dean catheter was placed. Dark og urine was obtained. Patient has been taking Azo for [id number] Pyridium. Therefore, there is discoloration. Urinalysis and culture were ordered Given the patient has a history of pyuria now having worsening symptoms and a Dean in place. We will treat with Keflex Patient was advised to continue using his mouth wash for stomatitis follow-up with urology next week for evaluation of the catheter - Lab Data Lab Results 06/25/18 Range/Units 22:43 Urine Color Dark Brown Urine Appearance Clear (Clear) Urine pH 6.5 (5.0-8.0) Ur Specific [place] 1.008 (1.001-1.035) Urine Protein Negative (Negative) Urine Glucose (UA) Negative (Negative) Urine Ketones Negative (Negative) Urine Blood Negative (Negative) Urine Nitrite Positive (Negative) Urine Bilirubin 1+ H (Negative) Urine Urobilinogen 2.0 (<2.0) mg/dL Ur Leukocyte Esterase Negative (Negative) Urine RBC 6 H (0-5) /hpf Urine WBC 1 (0-5) /hpf Ur Squamous Epith Cells <1 (0-4) /hpf Urine Bacteria Rare H (None) /hpf Urine Mucus Rare H (None) /hpf Disposition Clinical Impression: Benign prostatic hypertrophy with urinary retention Disposition: HOME SELF-CARE Condition: Good Instructions (If sedation given, give patient instructions): Dean Catheter Placement and Care (ED) Prescriptions: Cephalexin [Keflex] 500 mg PO Q6HR 7 Days #28 cap Is patient prescribed a controlled substance at d/c from ED?: No Referrals: Raphael Kaufman MD [Primary Care Provider] - 1-2 days Kevin Dozier MD [STAFF PHYSICIAN] - 1-2 days
[2018-06-25] MEDS ORDERED: CEPHALEXIN 500MG STARTER PACK 4 CAP BTL PO STA (22:58)
[2018-06-26 04:22] LABS: Appearance,Urine Clear (Clear); Bacteria,Urine Rare /hpf; Bilirubin,Urine 1+ (Negative); Blood,Urine Negative (Negative); Color,Urine Dark Brown; Glucose,Urine (UA) Negative (Negative); Ketones,Urine Negative (Negative); Leukocyte Esterase,Urine Negative (Negative); Mucus,Urine Rare /hpf; Nitrite,Urine Positive (Negative); PH, Urine 6.5 (5.0-8.0); Protein,Urine Negative (Negative); RBC,Urine 6 /hpf (0-5); Specific Gravity,Urine 1.008 (1.001-1.035); Squamous Epithelial Cell,Urine <1 /hpf (0-4); WBC,Urine 1 /hpf (0-5)
== END 2018-06-25 23:00 | disposition home or self-care (01) ==
LOC: EC 22:04
DX: N40.1 Benign prostatic hyperplasia with lower urinary tract symptoms (principal); F41.9 Anxiety disorder, unspecified; Z85.01 Personal history of malignant neoplasm of esophagus; Z85.89 Personal history of malignant neoplasm of other organs and systems; Z87.891 Personal history of nicotine dependence; Z79.899 Other long term (current) drug therapy; Z91.040 Latex allergy status; Z91.048 Other nonmedicinal substance allergy status; Z93.0 Tracheostomy status
CPT/HCPCS: 51702; 51798; 81001; 99284

== ENCOUNTER 2018-07-15 18:51 | Emergency (ER) | payer OTHER ==
[2018-07-15 19:02] VITALS: RESP 18
[2018-07-15] MEDS ORDERED: PIPERACILLIN-TAZOBACTAM 3.375 GM in SODIUM CHLORIDE 0.9% 100 ML IVPB STA (19:16)
[2018-07-15] MEDS ORDERED: ACETAMINOPHEN TAB 500 MG TAB PO STA (19:29)
[2018-07-15] MEDS ORDERED: IBUPROFEN 600 MG TAB PO STA (19:29)
--- NOTE | 2018-07-15 19:29 | ED ---
General Adult HPI - General Source: patient, family, RN notes reviewed Mode of arrival: ambulatory Limitations: no limitations <Curtis Gotti - Last Filed: 07/15/18 20:49> <Pasha Kessler - Last Filed: 07/15/18 23:10> - General Chief complaint: Upper Respiratory Infection Stated complaint: fall, spike, fever, tracea Time Seen by Provider: 07/15/18 19:00 - History of Present Illness Initial comments: This is a 63-year-old male who presents to the emergency department with a past medical history significant for throat cancer for which she has had a trach and since last November. Patient also states he had a colostomy placed in March. He does not know the reason why. Patient comes in today because he has had a fever all day today and he is been coughing up a lot more sputum through his trachea. Patient denies any chest pain. Patient denies abdominal pain. Patient denies lightheadedness dizziness or near syncopal episode. Patient denies palpitations. Patient also complains of dysuria. Patient denies any hematuria. According to the patient's the patient did fall today but he did denies any injury. (Curtis Gotti) - Related Data Home Medications Medication Instructions Recorded Confirmed HYDROcodone/APAP 5-325MG [[place] 1 - 2 tab PEG/G-TUBE Q4H PRN 02/20/18 07/15/18 5-325] Hyoscyamine Sulfate [Levsin-Sl] 0.125 mg PEG/G-TUBE Q4H PRN 02/20/18 07/15/18 fentaNYL 25MCG/HR PATCH [Duragesic 1 patch TRANSDERM Q72H 02/20/18 07/15/18 25MCG/HR] LORazepam [Ativan] 1 mg PEG/G-TUBE TID PRN 03/04/18 07/15/18 Ondansetron Odt [Zofran Odt] 4 mg PEG/G-TUBE Q6H PRN 05/21/18 07/15/18 Sertraline 20mg Ml 25 mg PEG/G-TUBE HS PRN 05/21/18 07/15/18 risperiDONE ORAL SOLN [RisperDAL 1 mg PEG/G-TUBE HS 05/21/18 07/15/18 ORAL SOLN] Loratadine Oral Soln [Claritin 10 mg PEG/G-TUBE DAILY PRN 06/20/18 07/15/18 Oral Soln] rOPINIRole HCL [Requip] 0.25 - 0.5 mg PEG/G-TUBE HS 06/20/18 07/15/18 Doxycycline Monohydrate 25mg/5ml 100 mg PEG/G-TUBE BID 07/15/18 07/15/18 Lidocaine Viscous 2% [Xylocaine 10 ml MUCOUS MEM QID PRN 07/15/18 07/15/18 Viscous] Tamsulosin [Flomax] 0.4 mg PEG/G-TUBE HS 07/15/18 07/15/18 Previous Rx's Medication Instructions Recorded Levofloxacin 750 mg PO DAILY #7 tablet 07/15/18 Allergies Allergy/AdvReac Type Severity Reaction Status Date / Time adhesive tape Allergy Rash/Hives Verified 07/15/18 19:33 latex Allergy Rash/Hives Verified 07/15/18 19:33 Review of Systems ROS Other: All systems not noted in ROS Statement are negative. <Curtis Gotti - Last Filed: 07/15/18 20:49> ROS Other: All systems not noted in ROS Statement are negative. <Pasha Kessler - Last Filed: 07/15/18 23:10> ROS Statement: Those systems with pertinent positive or pertinent negative responses have been documented in the HPI. Past Medical History Past Medical History: Cancer Additional Past Medical History / Comment(s): esophageal cancer with trach, History of Any Multi-Drug Resistant Organisms: None Reported Past Surgical History: No Surgical Hx Reported Additional Past Surgical History / Comment(s): tracheostomy, and PEG tube, colostomy, Past Anesthesia/Blood Transfusion Reactions: No Reported Reaction Past Psychological History: Anxiety Smoking Status: Former smoker - Past Family History Father Family Medical History: Cancer Additional Family Medical History / Comment(s): prostate cancer that spread to the brain Mother Family Medical History: Cancer Additional Family Medical History / Comment(s): ovarian cancer Sister(s) Family Medical History: Cancer Additional Family Medical History / Comment(s): breast cancer <Curtis Gotti - Last Filed: 07/15/18 20:49> General Exam Limitations: no limitations <Curtis Gotti - Last Filed: 07/15/18 20:49> - General Exam Comments Initial Comments: GENERAL: Patient is well-developed and well-nourished. Patient is nontoxic and well- hydrated and is in mild distress. ENT: Neck is soft and supple. No significant lymphadenopathy is noted. Oropharynx is clear. Moist mucous membranes. Neck has full range of motion without eliciting any pain. EYES: The sclera were anicteric and conjunctiva were pink and moist. Extraocular movements were intact and pupils were equal round and reactive to light. Eyelids were unremarkable. PULMONARY: She has bilateral rhonchi in the bases. CARDIOVASCULAR: There is a regular rate and rhythm without any murmurs gallops or rubs. ABDOMEN: Soft and nontender with normal bowel sounds. No palpable organomegaly was noted. There is no palpable pulsatile mass. Patient has a colostomy bag SKIN: Skin is clear with no lesions or rashes and otherwise unremarkable. NEUROLOGIC: Patient is alert and oriented x3. Cranial nerves II through XII are grossly int act. Motor and sensory are also intact. Normal speech, volume and content. Symmetrical smile. MUSCULOSKELETAL: Normal extremities with adequate strength and full range of motion. No lower extremity swelling or edema. No calf tenderness. LYMPHATICS: No significant lymphadenopathy is noted PSYCHIATRIC: Normal psychiatric evaluation. (Curtis Gotti) Course Vital Signs 07/15/18 07/15/18 07/15/18 18:58 20:24 22:10 Temperature 101.8 F H 98.8 F Pulse Rate 94 79 Respiratory 18 18 18 Rate Blood Pressure 107/61 88/54 O2 Sat by Pulse 99 99 Oximetry Medical Decision Making <Curtis Gotti - Last Filed: 07/15/18 20:49> - Lab Data Result diagrams: 07/15/18 20:37 07/15/18 20:37 <Pasha Kessler - Last Filed: 07/15/18 23:10> - Medical Decision Making EKG shows a sinus rhythm at 80 bpm CO interval 218 QRS 74 QT interval 340 QTC is 41 per patient's EKG shows no ST segment elevation or depression or T wave abnormalities are noted. Dr. Vick taking over the care of this patient at 9 PM (Curtis Gotti) I receive this patient is a sign out pending the lab studies. The patient is feeling much better, when I review the results with him. He is wanting to go home and does have an appointment with the oncologist in the morning. I discussed the case with Dr. Akers, of oncology who would like the patient to receive prescription for Levofloxacin and see the oncologist at the infusion clinic tomorrow (Pasha Kessler) - Lab Data Lab Results 07/15/18 07/15/18 07/15/18 Range/Units 20:15 20:20 20:37 WBC 2.9 L (3.8-10.6) k/uL RBC 3.34 L (4.30-5.90) m/uL Hgb 11.1 L (13.0-17.5) gm/dL Hct 32.8 L (39.0-53.0) % MCV 98.2 (80.0-100.0) fL MCH 33.2 (25.0-35.0) pg MCHC 33.8 (31.0-37.0) g/dL RDW 15.7 H (11.5-15.5) % Plt Count 282 (150-450) k/uL Neutrophils % (Manual) 56 % Band Neutrophils % 14 % Lymphocytes % (Manual) 24 % Monocytes % (Manual) 5 % Eosinophils % (Manual) 3 % Neutrophils # (Manual) 2.00 (1.3-7.7) k/uL Lymphocytes # (Manual) 0.70 L (1.0-4.8) k/uL Monocytes # (Manual) 0.15 (0-1.0) k/uL Eosinophils # (Manual) 0.09 (0-0.7) k/uL Nucleated RBCs 0 (0-0) /100 WBC Manual Slide Review Performed Polychromasia Present Poikilocytosis (manual Present Anisocytosis (manual) Present Macrocytosis Slight PT (9.0-12.0) sec INR (<1.2) APTT (22.0-30.0) sec Sodium (137-145) mmol/L Potassium (3.5-5.1) mmol/L Chloride (98-107) mmol/L Carbon Dioxide (22-30) mmol/L Anion Gap mmol/L BUN (9-20) mg/dL Creatinine (0.66-1.25) mg/dL Est GFR (CKD-EPI)AfAm (>60 ml/min/1.73 sqM) Est GFR (CKD-EPI)NonAf (>60 ml/min/1.73 sqM) Glucose (74-99) mg/dL Plasma Lactic Acid [place] (0.7-2.0) mmol/L Calcium (8.4-10.2) mg/dL Total Bilirubin (0.2-1.3) mg/dL AST (17-59) U/L ALT (21-72) U/L Alkaline Phosphatase (38-126) U/L Total Protein (6.3-8.2) g/dL Albumin (3.5-5.0) g/dL Urine Color Light Red Urine Appearance Cloudy (Clear) Urine pH 6.0 (5.0-8.0) Ur Specific [place] 1.028 (1.001-1.035) Urine Protein 2+ H (Negative) Urine Glucose (UA) Negative (Negative) Urine Ketones Negative (Negative) Urine Blood Moderate H (Negative) Urine Nitrite Negative (Negative) Urine Bilirubin Negative (Negative) Urine Urobilinogen <2.0 (<2.0) mg/dL Ur Leukocyte Esterase Negative (Negative) Urine RBC >182 H (0-5) /hpf Calcium Oxalate Crystal Many H (None) /hpf Hyaline Casts 10 H (0-2) /lpf Urine Mucus Few H (None) /hpf Influenza Type A RNA Not Detected (Not Detectd) Influenza Type B (PCR) Not Detected (Not Detectd) 07/15/18 07/15/18 07/15/18 Range/Units 20:37 20:37 20:37 WBC (3.8-10.6) k/uL RBC (4.30-5.90) m/uL Hgb (13.0-17.5) gm/dL Hct (39.0-53.0) % MCV (80.0-100.0) fL MCH (25.0-35.0) pg MCHC (31.0-37.0) g/dL RDW (11.5-15.5) % Plt Count (150-450) k/uL Neutrophils % (Manual) % Band Neutrophils % % Lymphocytes % (Manual) % Monocytes % (Manual) % Eosinophils % (Manual) % Neutrophils # (Manual) (1.3-7.7) k/uL Lymphocytes # (Manual) (1.0-4.8) k/uL Monocytes # (Manual) (0-1.0) k/uL Eosinophils # (Manual) (0-0.7) k/uL Nucleated RBCs (0-0) /100 WBC Manual Slide Review Polychromasia Poikilocytosis (manual Anisocytosis (manual) Macrocytosis PT 10.2 (9.0-12.0) sec INR 0.9 (<1.2) APTT 26.1 (22.0-30.0) sec Sodium 140 (137-145) mmol/L Potassium 4.0 (3.5-5.1) mmol/L Chloride 102 (98-107) mmol/L Carbon Dioxide 29 (22-30) mmol/L Anion Gap 9 mmol/L BUN 19 (9-20) mg/dL Creatinine 0.53 L (0.66-1.25) mg/dL Est GFR (CKD-EPI)AfAm >90 (>60 ml/min/1.73 sqM) Est GFR (CKD-EPI)NonAf >90 (>60 ml/min/1.73 sqM) Glucose 98 (74-99) mg/dL Plasma Lactic Acid [place] 1.6 (0.7-2.0) mmol/L Calcium 9.6 (8.4-10.2) mg/dL Total Bilirubin 0.8 (0.2-1.3) mg/dL AST 20 (17-59) U/L ALT 25 (21-72) U/L Alkaline Phosphatase 70 (38-126) U/L Total Protein 6.7 (6.3-8.2) g/dL Albumin 3.9 (3.5-5.0) g/dL Urine Color Urine Appearance (Clear) Urine pH (5.0-8.0) Ur Specific [place] (1.001-1.035) Urine Protein (Negative) Urine Glucose (UA) (Negative) Urine Ketones (Negative) Urine Blood (Negative) Urine Nitrite (Negative) Urine Bilirubin (Negative) Urine Urobilinogen (<2.0) mg/dL Ur Leukocyte Esterase (Negative) Urine RBC (0-5) /hpf Calcium Oxalate Crystal (None) /hpf Hyaline Casts (0-2) /lpf Urine Mucus (None) /hpf Influenza Type A RNA (Not Detectd) Influenza Type B (PCR) (Not Detectd) Disposition <Curtis Gotti - Last Filed: 07/15/18 20:49> Is patient prescribed a controlled substance at d/c from ED?: No <Pasha Kessler - Last Filed: 07/15/18 23:10> Clinical Impression: Fever, Hematuria, Cough Disposition: HOME SELF-CARE Condition: Fair Instructions (If sedation given, give patient instructions): Fever in Adults (ED) Prescriptions: Levofloxacin 750 mg PO DAILY #7 tablet Referrals: Raphael Kaufman MD [Primary Care Provider] - 1-2 days Juan Akers MD [STAFF PHYSICIAN] - 1-2 days
--- NOTE | 2018-07-15 19:52 | XR ---
EXAMINATION TYPE: XR chest 2V DATE OF EXAM: 07/15/2018 COMPARISON: 06/20/2018 HISTORY: Fever TECHNIQUE: Frontal and lateral views of the chest are obtained. FINDINGS: There is tracheostomy tube. There is right central venous catheter with tip in the superio r vena cava. Heart and mediastinum are normal. Lungs are clear. There is no pleural effusion. There a re chest leads. Bony thorax is intact. IMPRESSION: No active cardiopulmonary disease. Normal heart. No change.
[2018-07-15] MEDS: SODIUM CHLORIDE 0.9% 500 ML 500 ML IV SCH ×2 (20:28→21:25)
[2018-07-15 20:40] LABS: Appearance,Urine Cloudy (Clear); Bilirubin,Urine Negative (Negative); Blood,Urine Moderate (Negative); Calcium Oxalate Crystals,Urine Many /hpf; Color,Urine Light Red; Glucose,Urine (UA) Negative (Negative); Hyaline Casts,Urine 10 /lpf (0-2); Ketones,Urine Negative (Negative); Leukocyte Esterase,Urine Negative (Negative); Mucus,Urine Few /hpf; Nitrite,Urine Negative (Negative); Protein,Urine 2+ (Negative); RBC,Urine >182 /hpf (0-5); Specific Gravity,Urine 1.028 (1.001-1.035); Urobilinogen,Urine <2.0 mg/dL (<2.0)
[2018-07-15 20:54] LABS: HCT 32.8 % (39.0-53.0); HGB 11.1 gm/dL (13.0-17.5); MCH 33.2 pg (25.0-35.0); MCHC 33.8 g/dL (31.0-37.0); MCV 98.2 fL (80.0-100.0); Macrocytosis Slight; Mean Platelet Volume 7.7; Platelet Count 282 k/uL (150-450); RBC 3.34 m/uL (4.30-5.90); RDW 15.7 % (11.5-15.5); WBC 2.9 k/uL (3.8-10.6)
[2018-07-15 21:00] LABS: ALT 25 U/L (21-72); AST 20 U/L (17-59); African American GFR (CKD) >90 (>60 ml/min/1.73 sqM); Albumin 3.9 g/dL (3.5-5.0); Alkaline Phosphatase 70 U/L (38-126); Anion Gap 9 mmol/L; Blood Urea Nitrogen 19 mg/dL (9-20); Calcium 9.6 mg/dL (8.4-10.2); Carbon Dioxide 29 mmol/L (22-30); Chloride 102 mmol/L (98-107); Glucose 98 mg/dL (74-99); Sodium 140 mmol/L (137-145); Total Bilirubin 0.8 mg/dL (0.2-1.3); Total Protein 6.7 g/dL (6.3-8.2)
[2018-07-15 21:01] LABS: INR 0.9 (<1.2); Partial Thromboplastin Time 26.1 sec (22.0-30.0); Prothrombin Time 10.2 sec (9.0-12.0)
[2018-07-15 21:18] LABS: Band Neutrophils % 14 %; Eosinophils # (M) 0.09 k/uL (0-0.7); Monocytes # (M) 0.15 k/uL (0-1.0); Neutrophils % (M) 56 %; Nucleated Red Blood Cells 0 /100 WBC (0-0); Total Cells Counted 200
[2018-07-15 21:19] LABS: Anisocytosis (M) Present; Polychromasia Present
[2018-07-15 21:22] LABS: Poikilocytosis (M) Present
[2018-07-15 22:11] VITALS: TEMP 98.8
[2018-07-15] MEDS ORDERED: LEVOFLOXACIN 750 MG TAB PO STA (22:45)
[2018-07-15 23:14] VITALS: BP 90/60; PULSE 77
== END 2018-07-15 23:14 | disposition home or self-care (01) ==
LOC: EC 18:51
DX: R50.9 Fever, unspecified (principal); R31.9 Hematuria, unspecified; R05 Cough; R09.89 Other specified symptoms and signs involving the circulatory and respiratory systems; Z87.891 Personal history of nicotine dependence; Z91.040 Latex allergy status; Z91.048 Other nonmedicinal substance allergy status; Z79.891 Long term (current) use of opiate analgesic; Z79.899 Other long term (current) drug therapy; Z85.01 Personal history of malignant neoplasm of esophagus; Z85.12 Personal history of malignant neoplasm of trachea; Z93.3 Colostomy status; Z93.0 Tracheostomy status; Z80.42 Family history of malignant neoplasm of prostate
CPT/HCPCS: 99285; 96365; 36415; 93005; 80053; 83605; 85025; 85610; 85730; 81001; 87040; 87086; 87502; 71046; J2543

== ENCOUNTER → 2018-08-28 | Outpatient (CLI) | payer OTHER ==
--- NOTE | 2018-08-28 10:33 | FL ---
Modified barium swallow. HISTORY: Dysphagia. Modified barium swallow was performed with the department of speech pathology. The patient was prese nted with various consistencies of barium. Aspiration with thin liquid barium and puree mixture. Examination was subsequently terminated. Full report is to follow from the department of speech pathology. Impression: Aspiration with thin liquid barium and puree mixture.
== END | disposition home or self-care (01) ==
LOC: RADFLMAIN 09:43
PROVIDERS: ATTEND Radiology Radiation Oncology
DX: C10.9 Malignant neoplasm of oropharynx, unspecified (principal); C77.0 Secondary and unspecified malignant neoplasm of lymph nodes of head, face and neck; Z87.891 Personal history of nicotine dependence; Z92.3 Personal history of irradiation; Z92.21 Personal history of antineoplastic chemotherapy
CPT/HCPCS: 74230

== ENCOUNTER → 2018-10-05 | Outpatient (CLI) | payer OTHER ==
--- NOTE | 2018-10-07 11:21 | PE ---
EXAMINATION TYPE: PET CT fusion skull to thigh DATE OF EXAM: 10/05/2018 COMPARISON: CTA chest 03/30/2018 Prior PET/CT: 05/11/2018 HISTORY: Head and neck cancer, throat TECHNIQUE: Following the intravenous administration of 11.244 mCi of F-18 FDG, whole body images are performed from the skull base to the midthigh. Images are reviewed on the computer in the coronal, axial, and sagittal planes. Reconstructed rotating images are created on independent workstation and reviewed on the computer. A localization and attenuation correction CT is performed in conjunction with the PET scan. DLP: 79.99+260.65 mGycm SCAN: Subsequent Blood glucose: 82 mg/dL Average Mediastinum SUV: 0.36 Average Liver SUV: 2.32 FINDINGS: Head and neck imaging: A subtle small lymph node with mild increased uptake of 3.31 SUV in the right neck, PET image 63, may be present. This is lateral to the thyroid lobe. There is increased uptake at the right posterior tongue with an SUV value of approximately 7.33. NECK: There is corresponding uptake of the marked focal uptake within the posterior right tongue bas e with an SUV value of 5.43. PET image 37. THORAX: No abnormal uptake within the mediastinum or lung alegria. Some abnormal uptake may be within the transverse process. See osseous structures below ABDOMEN: No abnormal uptake PELVIS: There is focal increased radiotracer at the level of the anus with an SUV value of 5.42. Dire ct visualization is recommended. OSSEOUS STRUCTURES: There is focal uptake within the posterior medial left transverse process, PET im age 109, SUV 2.99. LOCALIZATION CT: There is fullness on the right fossa of [place] compared to the left. Right tons illar pillar appears somewhat full. Coronary artery calcification is noted. Ascending thoracic aorta at the level the main pulmonary artery is 3.3 cm previously occasions 2.2 cm. Ostomy is on the right. COMPARISON: The abnormal area within the posterior right tongue appears smaller although SUV values h ave increased from 3.84 to as high as 7.33. IMPRESSION: 1. A focus of increased radiotracer accumulation within the right posterior tongue and hypopharynx re gion appears diminished in size and extension from the comparison study of 05/11/2018 PET scan. Howeve r, SUV values have increased. 2. There appears to be a focus of radiotracer accumulation at the level of the veins. Direct visualiz ation is recommended.
== END | disposition home or self-care (01) ==
LOC: RADPETMAIN 08:41
PROVIDERS: ATTEND Internal Medicine Hematology & Oncology
DX: C76.0 Malignant neoplasm of head, face and neck (principal)
CPT/HCPCS: 78815; A9552

== ENCOUNTER 2018-10-28 14:44 | Emergency (ER) | payer OTHER ==
[2018-10-28 14:50] VITALS: TEMP 98.2
--- NOTE | 2018-10-28 15:55 | ED ---
General Adult HPI - General Chief complaint: Recheck/Abnormal Lab/Rx Stated complaint: Feeding Tube Issues Time Seen by Provider: 10/28/18 15:08 Source: patient Mode of arrival: ambulatory Limitations: no limitations - History of Present Illness Initial comments: Patient is a 63-year-old male presenting to the emergency Department with complaints of a possible infected PEG tube. Patient's states that she's been noticing some yellow drainage around the tube as well as having trouble passing his feedings and medications through the tube. states the tube was placed approximately one year ago. Patient has mild pain surrounding the tube. Patient denies fever, chills, nausea, vomiting. Patient recently had a biopsy of his throat performed at [facility] in [place] secondary to esophageal cancer. Patient has no other complaints at this time. Upon arrival to ER, vital signs are stable. - Related Data Home Medications Medication Instructions Recorded Confirmed HYDROcodone/APAP 5-325MG [[place] 1 - 2 tab PEG/G-TUBE Q4H PRN 02/20/18 07/16/18 5-325] Hyoscyamine Sulfate [Levsin-Sl] 0.125 mg PEG/G-TUBE Q4H PRN 02/20/18 07/16/18 fentaNYL 25MCG/HR PATCH [Duragesic 1 patch TRANSDERM Q72H 02/20/18 07/16/18 25MCG/HR] LORazepam [Ativan] 1 mg PEG/G-TUBE TID PRN 03/04/18 07/16/18 Ondansetron Odt [Zofran Odt] 4 mg PEG/G-TUBE Q6H PRN 05/21/18 07/16/18 Sertraline 20mg Ml 25 mg PEG/G-TUBE HS PRN 05/21/18 07/16/18 risperiDONE ORAL SOLN [RisperDAL 1 mg PEG/G-TUBE HS 05/21/18 07/16/18 ORAL SOLN] Loratadine Oral Soln [Claritin 10 mg PEG/G-TUBE DAILY PRN 06/20/18 07/16/18 Oral Soln] rOPINIRole HCL [Requip] 0.25 - 0.5 mg PEG/G-TUBE HS 06/20/18 07/16/18 Doxycycline Monohydrate 25mg/5ml 100 mg PEG/G-TUBE BID 07/15/18 07/16/18 Lidocaine Viscous 2% [Xylocaine 10 ml MUCOUS MEM QID PRN 07/15/18 07/16/18 Viscous] Tamsulosin [Flomax] 0.4 mg PEG/G-TUBE HS 07/15/18 07/16/18 Previous Rx's Medication Instructions Recorded Levofloxacin 750 mg PO DAILY #7 tablet 07/15/18 Allergies Allergy/AdvReac Type Severity Reaction Status Date / Time adhesive tape Allergy Rash/Hives Verified 07/16/18 09:24 latex Allergy Rash/Hives Verified 07/16/18 09:24 Review of Systems ROS Statement: Those systems with pertinent positive or pertinent negative responses have been documented in the HPI. ROS Other: All systems not noted in ROS Statement are negative. Past Medical History Past Medical History: Cancer Additional Past Medical History / Comment(s): esophageal cancer with trach, biopsy of throat History of Any Multi-Drug Resistant Organisms: None Reported Past Surgical History: No Surgical Hx Reported Additional Past Surgical History / Comment(s): tracheostomy, and PEG tube, colostomy, Past Anesthesia/Blood Transfusion Reactions: No Reported Reaction Past Psychological History: Anxiety Smoking Status: Former smoker Past Alcohol Use History: None Reported Past Drug Use History: None Reported - Past Family History Father Family Medical History: Cancer Additional Family Medical History / Comment(s): prostate cancer that spread to the brain Mother Family Medical History: Cancer Additional Family Medical History / Comment(s): ovarian cancer Sister(s) Family Medical History: Cancer Additional Family Medical History / Comment(s): breast cancer General Exam - General Exam Comments Initial Comments: GENERAL: Well-appearing, well-nourished and in no acute distress. HEAD: Atraumatic, normocephalic. EYES: Pupils equal round and reactive to light, extraocular movements intact, sclera anicteric, conjunctiva are normal. ENT: TMs normal, nares patent, oropharynx erythematous, without exudates. Moist mucous membranes. NECK: Normal range of motion. Erythematous and swelling present secondary to previous radiation treatments for esophageal cancer. Patient also had a biopsy performed. LUNGS: Breath sounds clear to auscultation bilaterally and equal. No wheezes rales or rhonchi. HEART: Regular rate and rhythm without murmurs, rubs or gallops. ABDOMEN: Mild tenderness surrounding the PEG tube. There is some mild erythema surrounding the tube. Soft, normoactive bowel sounds. No guarding, no rebound. No masses appreciated. : Deferred EXTREMITIES: Normal range of motion, no pitting or edema. No clubbing or cyanosis. NEUROLOGICAL: Cranial nerves II through XII grossly intact. Normal speech, normal gait. PSYCH: Normal mood, normal affect. SKIN: Warm, Dry, normal turgor, no rashes or lesions noted. Limitations: no limitations Course Vital Signs 10/28/18 10/28/18 14:47 14:50 Temperature 98.2 F Pulse Rate 93 90 Respiratory 18 16 Rate Blood Pressure 118/78 120/80 O2 Sat by Pulse 98 98 Oximetry Procedures - Procedures Initial comment: Patient has a [employer] scientific PEG tube that was inserted one year ago by Dr. Medina. The adapter was a broken and patient has not been able to receive feedings or medications. A new adapter was found in place. Adapter was flushed twice with saline and had success. Medical Decision Making - Medical Decision Making Patient is a 63-year-old male presenting with possible clogged PEG tube. Patient's states she had a hard time passing his feeding and medications through yesterday evening. Patient is currently receiving treatment for esophageal cancer. On exam of patient's PEG tube, there is some mild irritation surrounding the tube. No signs of infection at this time. Upon review of patient's prior reports, the PEG tube is called a [employer] scientific. The patient at has been broken. A new adapter has been placed and patient's PEG tube was flushed twice with success. CBC, CMP, UA are all within normal limits. Patient is stable for discharge at this time. Patient does have a follow-up appointment with his doctor in 3 days. Return parameters were disc ussed with the patient and and they verbalized understanding. Case discussed with Dr. Johnson. - Lab Data Result diagrams: 10/28/18 15:55 10/28/18 15:55 Lab Results 10/28/18 10/28/18 10/28/18 Range/Units 15:55 15:55 15:55 WBC 10.4 (3.8-10.6) k/uL RBC 3.89 L (4.30-5.90) m/uL Hgb 12.3 L (13.0-17.5) gm/dL Hct 37.3 L (39.0-53.0) % MCV 95.8 (80.0-100.0) fL MCH 31.7 (25.0-35.0) pg MCHC 33.1 (31.0-37.0) g/dL RDW 13.5 (11.5-15.5) % Plt Count 410 (150-450) k/uL Neutrophils % 82 % Lymphocytes % 4 % Monocytes % 7 % Eosinophils % 4 % Basophils % 1 % Neutrophils # 8.5 H (1.3-7.7) k/uL Lymphocytes # 0.4 L (1.0-4.8) k/uL Monocytes # 0.7 (0-1.0) k/uL Eosinophils # 0.5 (0-0.7) k/uL Basophils # 0.1 (0-0.2) k/uL Sodium 140 (137-145) mmol/L Potassium 4.4 (3.5-5.1) mmol/L Chloride 98 (98-107) mmol/L Carbon Dioxide 33 H (22-30) mmol/L Anion Gap 9 mmol/L BUN 20 (9-20) mg/dL Creatinine 0.54 L (0.66-1.25) mg/dL Est GFR (CKD-EPI)AfAm >90 (>60 ml/min/1.73 sqM) Est GFR (CKD-EPI)NonAf >90 (>60 ml/min/1.73 sqM) Glucose 90 (74-99) mg/dL Calcium 10.0 (8.4-10.2) mg/dL Total Bilirubin 0.5 (0.2-1.3) mg/dL AST 22 (17-59) U/L ALT 23 (21-72) U/L Alkaline Phosphatase 107 (38-126) U/L Total Protein 7.1 (6.3-8.2) g/dL Albumin 3.9 (3.5-5.0) g/dL Urine Color Yellow Urine Appearance Cloudy (Clear) Urine pH 7.5 (5.0-8.0) Ur Specific [place] 1.016 (1.001-1.035) Urine Protein Trace H (Negative) Urine Glucose (UA) Negative (Negative) Urine Ketones Negative (Negative) Urine Blood Small H (Negative) Urine Nitrite Negative (Negative) Urine Bilirubin Negative (Negative) Urine Urobilinogen <2.0 (<2.0) mg/dL Ur Leukocyte Esterase Trace H (Negative) Urine RBC 71 H (0-5) /hpf Amorphous Sediment Rare H (None) /hpf Urine Mucus Rare H (None) /hpf Disposition Clinical Impression: PEG tube malfunction Disposition: HOME SELF-CARE Condition: Stable Additional Instructions: Please return to the Emergency Department if symptoms worsen or any other concer ns. Follow-up with doctor as discussed. Is patient prescribed a controlled substance at d/c from ED?: No Referrals: Raphael Kaufman MD [Primary Care Provider] - 1-2 days
[2018-10-28 16:09] LABS: Basophils # (A) 0.1 k/uL (0-0.2); Basophils % (A) 1 %; Eosinophils # (A) 0.5 k/uL (0-0.7); Eosinophils % (A) 4 %; HCT 37.3 % (39.0-53.0); HGB 12.3 gm/dL (13.0-17.5); Lymphocytes # (A) 0.4 k/uL (1.0-4.8); Lymphocytes % (A) 4 %; MCH 31.7 pg (25.0-35.0); MCHC 33.1 g/dL (31.0-37.0); MCV 95.8 fL (80.0-100.0); Mean Platelet Volume 6.3; Monocytes # (A) 0.7 k/uL (0-1.0); Monocytes % (A) 7 %; Neutrophils # (A) 8.5 k/uL (1.3-7.7); Neutrophils % (A) 82 %; Platelet Count 410 k/uL (150-450); RBC 3.89 m/uL (4.30-5.90); RDW 13.5 % (11.5-15.5); WBC 10.4 k/uL (3.8-10.6)
[2018-10-28 16:16] LABS: Amorphous Sediment,Urine Rare /hpf; Appearance,Urine Cloudy (Clear); Bilirubin,Urine Negative (Negative); Blood,Urine Small (Negative); Color,Urine Yellow; Glucose,Urine (UA) Negative (Negative); Ketones,Urine Negative (Negative); Leukocyte Esterase,Urine Trace (Negative); Mucus,Urine Rare /hpf; Nitrite,Urine Negative (Negative); PH, Urine 7.5 (5.0-8.0); Protein,Urine Trace (Negative); RBC,Urine 71 /hpf (0-5); Specific Gravity,Urine 1.016 (1.001-1.035); Urobilinogen,Urine <2.0 mg/dL (<2.0)
[2018-10-28 16:26] LABS: ALT 23 U/L (21-72); AST 22 U/L (17-59); African American GFR (CKD) >90 (>60 ml/min/1.73 sqM); Albumin 3.9 g/dL (3.5-5.0); Alkaline Phosphatase 107 U/L (38-126); Anion Gap 9 mmol/L; Blood Urea Nitrogen 20 mg/dL (9-20); Carbon Dioxide 33 mmol/L (22-30); Chloride 98 mmol/L (98-107); Glucose 90 mg/dL (74-99); Potassium 4.4 mmol/L (3.5-5.1); Sodium 140 mmol/L (137-145); Total Bilirubin 0.5 mg/dL (0.2-1.3); Total Protein 7.1 g/dL (6.3-8.2)
[2018-10-28 18:43] VITALS: BP 120/80; PULSE 90; RESP 16
== END 2018-10-28 18:39 | disposition home or self-care (01) ==
LOC: EC 14:44
DX: K94.23 Gastrostomy malfunction (principal); F41.9 Anxiety disorder, unspecified; Z79.899 Other long term (current) drug therapy; Z91.040 Latex allergy status; Z85.01 Personal history of malignant neoplasm of esophagus; Z92.3 Personal history of irradiation; Z87.891 Personal history of nicotine dependence; Z91.048 Other nonmedicinal substance allergy status; Z98.890 Other specified postprocedural states
CPT/HCPCS: 36415; 80053; 81001; 85025; 99283

== ENCOUNTER → 2018-12-17 | Outpatient (CLI) | payer OTHER ==
[2018-12-17 15:27] LABS: HCT 40.7 % (39.0-53.0); HGB 13.4 gm/dL (13.0-17.5); MCH 31.7 pg (25.0-35.0); MCV 96.2 fL (80.0-100.0); Mean Platelet Volume 6.6; Platelet Count 315 k/uL (150-450); RBC 4.23 m/uL (4.30-5.90); RDW 13.5 % (11.5-15.5); WBC 10.5 k/uL (3.8-10.6)
[2018-12-17 15:35] LABS: ALT 27 U/L (21-72); AST 27 U/L (17-59); African American GFR (CKD) >90 (>60 ml/min/1.73 sqM); Albumin 4.7 g/dL (3.5-5.0); Alkaline Phosphatase 95 U/L (38-126); Anion Gap 10 mmol/L; Blood Urea Nitrogen 24 mg/dL (9-20); Calcium 10.6 mg/dL (8.4-10.2); Carbon Dioxide 29 mmol/L (22-30); Chloride 98 mmol/L (98-107); Glucose 116 mg/dL (74-99); Potassium 4.7 mmol/L (3.5-5.1); Sodium 137 mmol/L (137-145); Total Bilirubin 0.8 mg/dL (0.2-1.3)
== END | disposition home or self-care (01) ==
LOC: LABPAT 14:29
PROVIDERS: ATTEND Surgery Plastic and Reconstructive Surgery
DX: Z01.812 Encounter for preprocedural laboratory examination (principal)
CPT/HCPCS: 36415; 80053; 85027

== ENCOUNTER 2018-12-20 13:04 | Inpatient (IN) | payer OTHER ==
[2018-12-17 14:08] VITALS: BMI 22.6
--- NOTE | 2018-12-20 09:56 | P.GSHP ---
History of Present Illness H&P Date: 12/20/18 CHIEF COMPLAINT: History of end ileostomy for perforated colon. HISTORY OF PRESENT ILLNESS: Jonathan Dotson is a 63-year-old male who comes in with a history of perforated colon back in March of 2018, which is now over 7-8 months ago. He has a complicated history of oropharyngeal cancer, and had chemo/radiation. He presents with a note stating that he is clear from oropharyngeal cancer. He has not had chemo in a while, however he is still pending to follow up with Dr. Barron. He is also looking to remove his port. He has an ileostomy. He presents in consultation for ileostomy reversal. PAST MEDICAL HISTORY: Please see list. PAST SURGICAL HISTORY: Please see list. MEDICATIONS: Please see list. ALLERGIES: Please see list. SOCIAL HISTORY: No illicit drug use FAMILY HISTORY: No reports of Crohn disease or ulcerative colitis. REVIEW OF ORGAN SYSTEMS: Additionally reports: CONSTITUTIONAL: No fevers or chills. Has weight loss from chemotherapy. EYES: Denies any trouble with vision. No glasses. HEENT: No difficulties with hearing. No nosebleeds. Has tracheostomy. RESPIRATORY: Past pneumonia. Denies any troubles with breathing or dyspnea on exertion. Has asthma. CARDIOVASCULAR: Denies any chest pain, palpitations, or recent heart attacks. GASTROINTESTINAL: Denies fatty food intolerance. Denies change in bowel habits and gas bloat. GENITOURINARY: Denies any blood in urine or increased urinary frequency. NEUROLOGICAL: Denies any numbness or tingling along the distal extremities. No seizure disorders or headaches. MUSCULOSKELETAL: Has back pain, stiffness or joint arthritis. SKIN: No current skin cancer. No rash. PSYCHIATRIC: Has depression. No suicidal thoughts. Has anxiety. ENDOCRINE: Denies current thyroid disorders. Denies any blood sugar glucose intolerance. HEME/LYMPHATIC: Denies any lumps and bumps around the neck. No recent deep venous thrombosis. ALLERGY/IMMUNOLOGY: No immunoglobulin therapy. No immune deficiencies. Past chemotherapy. BREAST: Denies current breast lumps, pain or nipple discharge. PHYSICAL EXAM: Patient is a 63-year-old male. Abdomen: Ileostomy functioning and patent, liquid stool. PEG tube placement without cellulitis. CONSTITUTIONAL: Well developed and in no acute distress. Vitals reviewed. EYES: Conjuctivae without sclera icterus. Pupils are equally round and reactive to light. Extraocular movements grossly intact. HEAD, EARS, NOSE, THROAT: Moist buccal mucosa. Head is atraumatic, normocephalic. Hears conversational speech. No nasal drainage. Has tracheostomy. NECK: Supple. No JV distention. No thyroidomegaly. RESPIRATORY: Non-labored respirations and equal bilateral excursions. No gross wheezes. CARDIOVASCULAR: Regular rate and rhythm. Extremities without moderate edema. Palpable 2+ radial pulses. LYMPH: No neck lymphadenopathy. No axillary lymphadenopathy. MUSCULOSKELETAL: Nail and fingers with good capillary refill. SKIN: Warm and well perfused with good skin turgor. NEUROLOGIC: Cranial nerves I through XII grossly intact. Sensation upper and extremities intact. No focal or lateralizing signs. PSYCH: Appropriate affect. Alert and oriented to person, place and time. Displays appropriate insight. ASSESSMENT: 1. History of ischemic colitis, status post right hemicolectomy. 2. Ileostomy status. 3. History of oropharyngeal cancer. 4. PEG tube status. PLAN: 1. Open reversal of ileostomy was described for which he is high risk with active chemotherapy. 2. He wants the port removed. 3. Overall, he is extremely high risk with his history of oropharyngeal cancer, PEG tube status including recent chemo/radiation. Past Medical History Past Medical History: Cancer, Osteoarthritis (OA) Additional Past Medical History / Comment(s): esophageal cancer with trach, " ABDOMINAL PAIN NEEDED A BOWEL RESECTION", TRACHEOSTOMY REMOVED, HAS A PEG TUBE. ILEOSTOMY History of Any Multi-Drug Resistant Organisms: None Reported Past Surgical History: Bowel Resection Additional Past Surgical History / Comment(s): tracheostomy, and PEG tube, ILEOSTOMY Past Anesthesia/Blood Transfusion Reactions: No Reported Reaction Smoking Status: Former smoker - Past Family History Father Family Medical History: Cancer Additional Family Medical History / Comment(s): prostate cancer that spread to the brain Mother Family Medical History: Cancer Additional Family Medical History / Comment(s): ovarian cancer Sister(s) Family Medical History: Cancer Additional Family Medical History / Comment(s): breast cancer Medications and Allergies Home Medications Medication Instructions Recorded Confirmed Type HYDROcodone/APAP 5-325MG [[place] 1 tab PEG/G-TUBE HS 02/20/18 12/17/18 History 5-325] fentaNYL 25MCG/HR PATCH [Duragesic 1 patch TRANSDERM Q72H 02/20/18 12/17/18 History 25MCG/HR] Sertraline 20mg Ml 100 mg PEG/G-TUBE AC-BRKFST PRN 05/21/18 12/17/18 History risperiDONE ORAL SOLN [RisperDAL 2 mg PEG/G-TUBE HS 05/21/18 12/17/18 History ORAL SOLN] Allergies Allergy/AdvReac Type Severity Reaction Status Date / Time adhesive tape Allergy Rash/Hives Verified 12/17/18 14:03 latex Allergy Rash/Hives Verified 12/17/18 14:03
[~2018-12-20 13:04] MED LIST changes: +ACETAMINOPHEN TAB 500 MG TAB PO ONE; +ALVIMOPAN 12 MG CAPSULE PO ONE; +Antibiotics per Pharmacy 1 EACH MISC MISCELLANE PRN; -HEPARIN SODIUM,PORCINE 100 UNIT/ML 5 ML VIAL IV ONE; -HYDROcodone/APAP 5-325MG 1 EACH TAB PO PRN; -LIDOCAINE (PF) 10 MG/ML 2 ML VIAL SQ ONE; -LIDOCAINE 1% 20 ML VIAL (10MG/ML) FOR IV START INTRADERMA PRN; -LIDOCAINE 1% INJ 10MG/ML (20 ML MDV) ONE; +MELOXICAM 7.5 MG TAB PO ONE; -MIDAZOLAM (PF) 2 MG/2 ML VIAL IV PRN; +MIDAZOLAM 2 MG/2 ML VIAL IV PRN; -MIDAZOLAM 2 MG/2 ML VIAL ONE; -NALOXONE 0.4 MG/ML 1 ML VIAL IV PRN; -PHENYLEPHRINE-0.9% NACL SYG 1 MG/10 ML SYRINGE ONE; -PROPOFOL 10 MG/ML 20 ML VIAL IV ONE; -Pre Op ABX Message 1 EACH MISC MISCELLANE ONE; -SODIUM CHLORIDE 0.9% 50 ML with ceFAZolin 1,000 MG IV ONE; -SUCCINYLCHOLINE CHLORIDE 100 MG/5 ML SYR IV ONE; -fentaNYL (PF) 50 MCG/ML 2 ML AMP ONE; +metroNIDAZOLE-NS PMX 500 MG in SALINE 1 100ML.BAG IVPB ONE
--- NOTE | 2018-12-20 14:08 | P.HPADDEND ---
H&P Addendum H&P Addendum Date: 12/20/18 Secondary emergency trauma case, ileostomy reversal case deferred for tomorrow.
[2018-12-20] MEDS ORDERED: POLYETHYLENE GLYCOL LYTES SOLN 4,000 ML SOLN.RECON PO ONE (20:18)
[2018-12-20] MEDS ORDERED: TEMAZEPAM 15 MG CAP PO ONE (21:00)
[2018-12-20] MEDS: NEOMYCIN 500 MG TAB PO SCH ×2 (21:10→22:34)
[2018-12-20] MEDS: metroNIDAZOLE 500 MG TAB PO SCH ×2 (21:20→22:33)
[2018-12-20] MEDS ORDERED: diphenhydrAMINE 50 MG/ML 1 ML VIAL IVP PRN (23:41)
[2018-12-21] MEDS ORDERED: metroNIDAZOLE-NS PMX 500 MG in SALINE 1 100ML.BAG IVPB ONE (05:00)
[2018-12-21 06:22] LABS: ALT 26 U/L (21-72); AST 25 U/L (17-59); African American GFR (CKD) >90 (>60 ml/min/1.73 sqM); Albumin 4.4 g/dL (3.5-5.0); Alkaline Phosphatase 101 U/L (38-126); Anion Gap 11 mmol/L; Blood Urea Nitrogen 23 mg/dL (9-20); Calcium 10.6 mg/dL (8.4-10.2); Carbon Dioxide 26 mmol/L (22-30); Chloride 100 mmol/L (98-107); Glucose 78 mg/dL (74-99); Sodium 137 mmol/L (137-145); Total Bilirubin 1.6 mg/dL (0.2-1.3); Total Protein 7.4 g/dL (6.3-8.2)
[2018-12-21] MEDS: metroNIDAZOLE 500 MG TAB PO SCH (06:29)
[2018-12-21 06:31] LABS: Basophils % (A) 1 %; Eosinophils # (A) 0.2 k/uL (0-0.7); Eosinophils % (A) 4 %; HCT 37.9 % (39.0-53.0); HGB 12.9 gm/dL (13.0-17.5); Lymphocytes # (A) 0.6 k/uL (1.0-4.8); Lymphocytes % (A) 9 %; MCH 32.1 pg (25.0-35.0); MCV 94.5 fL (80.0-100.0); Mean Platelet Volume 6.7; Monocytes # (A) 0.7 k/uL (0-1.0); Monocytes % (A) 10 %; Neutrophils # (A) 4.5 k/uL (1.3-7.7); Neutrophils % (A) 72 %; Platelet Count 256 k/uL (150-450); RBC 4.01 m/uL (4.30-5.90); RDW 13.4 % (11.5-15.5); WBC 6.3 k/uL (3.8-10.6)
[2018-12-21] MEDS: NEOMYCIN 500 MG TAB PO SCH (06:46)
--- NOTE | 2018-12-21 08:55 | P.PN ---
Subjective Progress Note Date: 12/21/18 CHIEF COMPLAINT: Perforated ischemic right colitis HISTORY OF PRESENT ILLNESS: The patient is a 63-year-old male who comes in with history of perforated ischemic colitis and ileostomy. No reports of abdominal pain. He tolerated his prep. He is completely NPO with a PEG tube. ROS: No reports of nausea and vomiting. No fevers or chills. No new chest pain. PHYSICAL EXAM: VITAL SIGNS: Reviewed CONSTITUTIONAL: Well developed and in no acute distress. EYES: Conjuctivae without sclera icterus. Extraocular movements grossly intact. HEAD, EARS, NOSE, THROAT: Moist buccal mucosa. Head is atraumatic, normocephalic. Hears conversational speech. No nasal drainage. NECK: Supple. No thyroidomegaly. RESPIRATORY: Non-labored respirations and equal bilateral excursions. CARDIOVASCULAR: Palpable 2+ radial pulses. Regular rate. Regular rhythm. ABDOMEN: Soft, non-tender. Non-distended. Ileostomy viable and pink. MUSCULOSKELETAL: No gross deformity of the lower extremities noted. No clubbing. No cyanosis. SKIN: Good skin turgor. Well perfused. NEUROLOGIC: Cranial nerves I through XII grossly intact. No focal or lateralizing signs. PSYCH: Appropriate affect. Alert and oriented to person, place and time. CLINICAL LABS: White blood cell count normal ASSESSMENT: 1. Perforated ischemic right colitis 2. Ileostomy status PLAN: 1. All questions were addressed. 2. Will proceed with open ileostomy reversal. Objective - Vital Signs Vital signs: Vital Signs Temp 97.9 F 12/21/18 00:41 Pulse 54 L 12/21/18 07:43 Resp 14 12/21/18 07:43 BP 111/66 12/21/18 00:41 Pulse Ox 100 12/21/18 00:41 Intake & Output 12/20/18 12/21/18 12/21/18 18:59 06:59 18:59 Intake Total 400 Balance 400 Intake: Other 400 - Labs CBC & Chem 7: 12/24/18 06:20 12/24/18 06:20 Labs: Abnormal Lab Results - Last 24 Hours (Table) 12/21/18 12/21/18 Range/Units 05:28 05:28 RBC 4.01 L (4.30-5.90) m/uL Hgb 12.9 L (13.0-17.5) gm/dL Hct 37.9 L (39.0-53.0) % Lymphocytes # 0.6 L (1.0-4.8) k/uL BUN 23 H (9-20) mg/dL Calcium 10.6 H (8.4-10.2) mg/dL Total Bilirubin 1.6 H (0.2-1.3) mg/dL
[2018-12-21] MEDS ORDERED: fentaNYL (PF) 50 MCG/ML 2 ML AMP ONE (11:31)
[2018-12-21] MEDS ORDERED: NEOSTIGMINE 1 MG/ML 10 ML VIAL ONE (11:31)
[2018-12-21] MEDS ORDERED: GLYCOPYRROLATE 0.2 MG/ML 2 ML VIAL ONE (11:31)
[2018-12-21] MEDS ORDERED: ePHEDrine SULFATE/0.9% NACL/PF 50 MG/5 ML SYRINGE IV ONE (11:31)
[2018-12-21] MEDS ORDERED: LIDOCAINE 1% INJ 10MG/ML (20 ML MDV) ONE (11:31)
[2018-12-21] MEDS ORDERED: PHENYLEPHRINE-0.9% NACL SYG 1 MG/10 ML SYRINGE ONE (11:31)
[2018-12-21] MEDS ORDERED: PROPOFOL 10 MG/ML 20 ML VIAL IV ONE (11:31)
[2018-12-21] MEDS ORDERED: SUCCINYLCHOLINE CHLORIDE 100 MG/5 ML SYR IV ONE (11:31)
[2018-12-21] MEDS ORDERED: ROCURONIUM BROMIDE 10 MG/ML 10 ML VIAL IV ONE (11:31)
[2018-12-21] MEDS ORDERED: NALBUPHINE 10 MG/ML (1 ML AMP) IV PRN (11:36)
[2018-12-21] MEDS ORDERED: SODIUM CHLORIDE 0.9% 1,000 ML IV ONE ×2 (11:36→16:24)
[2018-12-21] MEDS ORDERED: NALOXONE 0.4 MG/ML 1 ML VIAL IV PRN (11:36)
[2018-12-21] MEDS ORDERED: LIDOCAINE 1% 20 ML VIAL (10MG/ML) FOR IV START INTRADERMA PRN (11:37)
[2018-12-21] MEDS ORDERED: HYDROmorphone 0.5 MG/0.5 ML SYRINGE IVP PRN (11:37)
[2018-12-21] MEDS ORDERED: DEXAMETHASONE SOD PHOSPHATE 10 MG/ML 1 ML VIAL IV ONE (11:37)
[2018-12-21] MEDS ORDERED: ONDANSETRON 4 MG/2 ML VIAL IVP ONE (11:37)
[2018-12-21] MEDS ORDERED: ONDANSETRON 4 MG/2 ML VIAL IVP PRN ×2 (11:37→14:05)
[2018-12-21] MEDS ORDERED: LACTATED RINGERS 1,000 ML IV ONE ×4 (11:59→14:43)
[2018-12-21] MEDS ORDERED: LIDOCAINE 1%-EPI 1:100,000 20 ML VIAL SQ ONE (12:11)
[2018-12-21] MEDS ORDERED: HYDROmorphone 1 MG/ML 1 ML SYRINGE IVP PRN (14:05)
--- NOTE | 2018-12-21 14:05 | P.OP ---
Date of Procedure: 12/21/18 Description of Procedure: Date of Procedure: 12/21/18 SURGEON: KAVON FLOWERS MD COPPING MACHINE OPERATOR: None. PREOPERATIVE DIAGNOSES: 1. Ileostomy status 2. Perforated ischemic right colitis with sequelae, s/p right hemicolectomy 3. Oropharyngeal cancer 4. Tracheostomy status 5. Gastrostomy tube status 6. Gastroesophageal reflux disease 7. Anxiety disorder 8. Central venous port for chemotherapy POSTOPERATIVE DIAGNOSES: 1. Ileostomy status 2. Perforated ischemic right colitis with sequelae, s/p right hemicolectomy 3. Oropharyngeal cancer 4. Tracheostomy status 5. Gastrostomy tube status 6. Gastroesophageal reflux disease 7. Anxiety disorder 8. Central venous port for chemotherapy OPERATION: 1. Open ileostomy reversal 2. Removal of right internal jugular venous Port-A-Cath 3. Application of 13-cm PREVENA wound vac system, right lower quadrant Anesthesia: GETA, local Estimated Blood Loss (ml): 50 Pathology: other (Ileostomy) Condition: stable Disposition: floor COMPLICATIONS: None. Operative Findings: 1. Uncomplicated removal of right internal venous jugular Port-A-Cath 2. Prolene suture of transverse colon identified for ileostomy reversal 3. Covidien 60 mm tri-stapler morocho load used to disconnect ileostomy along abdominal wall 4. Ileo-colostomy created using purple load 60 mm Covidien staplers 5. Defect of ileocolic mesentery closed using 3-0 silk 6. Negative wound VAC system placed along ileostomy site after closing the fascia with 0 Vicryl 7. Midline incision closed using 3-0 Vicryl 8. Clean closure set used for clean contaminated case INDICATIONS: The patient is a 63-year-old male who presents with ileostomy following perforated right ischemic colitis and right hemicolectomy. Also, he has completed treatment for oropharyngeal cancer and chemotherapy. Now he presents for ileostomy reversal including removal of Port-A-Cath. Benefits and risks of surgical intervention including bleeding, infection, and open exploration was reviewed at length. Informed consent was obtained. DESCRIPTION OF PROCEDURE: The patient was brought to the operating room, laid in supine position. After general induction, the abdomen was prepped and draped in standard sterile fashion including the right chest wall. Attention was brought to the area of the port site, whereby a total of 30 mL of local was infiltrated into the skin for a field block. A #15 blade was used to incise along the previous cicatrix. Electro- Bovie cautery was used to control for hemostasis. Adhesions were lysed around the Mediport. The port was extracted without sequelae. Pressure for 2 minutes was placed along the internal jugular vein. Hemostasis was checked along the pocket of the Port-A-Cath site. The wound was closed in layers using 3-0 Vicryl for the deep subcutaneous tissues followed by 4-0 Monocryl in a running subcuticular fashion. Dermabond was applied to the skin. Once dried a 4 x 4 Optifoam was placed. Next, attention was brought to the ileostomy that was dressed using a 4 x 4 and Tegaderm. The rest of the abdomen were prepped and draped in standard sterile fashion. A Dean catheter was placed. A timeout protocol was confirmed with surgical team regarding the patient's name, including procedure to be performed. Preoperative medications were also given within an hour of incision. DVT prophylaxis had included heparin 5000 units subcutaneously including bilateral SCDs. A midline incision was made using #10 blade along the previous cicatrix. Carefully the abdomen was entered without enterotomy. A Bookwalter retractor was used for maximum exposure. Next, the Prolene sutures were found of the transverse colon and mobilized using Enseal. Next, attention was brought to the end ileostomy which was resected using 60 mm morocho load. A goyo-lumen was created after creating enterotomies along the transverse colon and ileum. The neolumen was created using 60 mm purple load and closed using similar staple load. The mesenteric defect was oversewn using 2-0 VLOC. The fascial defect of the ileostomy site was closed using 0 Vicryl. A midline incision was oversewn using double stranded 0-PDS after using a clean closure set were all gloves and gowns were changed. The skin incisions were cleansed using dilute hydrogen peroxide. The skin was reapproximated using 3-0 Vicryl. A optifoam dressing was placed along the midline. The ileostomy site was reapproximated using skin monae followed by PREVENA 13- cm wound VAC system. At the end of the procedure, the needle, sponge, and instrument count was verified correct by the surgical pathologist. Specimen had included the prior ileostomy. The patient was taken to the postanesthesia care unit in stable condition.
[2018-12-21] MEDS: ROPIVACAINE 400 MG, HYDROMORPHONE (PF) 5 MG in SODIUM CHLORIDE 0.9% 170 ML EPIDURAL PRN (15:22)
[2018-12-21] MEDS: LACTATED RINGERS 1,000 ML IV SCH (16:18)
[2018-12-21] MEDS: SODIUM CHLORIDE 0.9% 1,000 ML IV SCH (16:51)
[2018-12-21] MEDS: metroNIDAZOLE-NS PMX 500 MG in SALINE 1 100ML.BAG IVPB SCH ×2 (18:03→22:40)
[2018-12-21] MEDS: HEPARIN SODIUM,PORCINE 5,000 UNIT/ML 1 ML VIAL SQ SCH (21:48)
[2018-12-22] MEDS: SODIUM CHLORIDE 0.9% 1,000 ML IV SCH ×3 (02:30→21:43)
[2018-12-22] MEDS: metroNIDAZOLE-NS PMX 500 MG in SALINE 1 100ML.BAG IVPB SCH (05:09)
[2018-12-22] MEDS: METOCLOPRAMIDE 5 MG/ML 2 ML VIAL IVP PRN ×2 (06:35→21:43)
[2018-12-22 07:26] LABS: Basophils # (A) 0.1 k/uL (0-0.2); Basophils % (A) 1 %; Eosinophils # (A) 0.2 k/uL (0-0.7); Eosinophils % (A) 2 %; HCT 34.2 % (39.0-53.0); HGB 11.4 gm/dL (13.0-17.5); Lymphocytes # (A) 0.1 k/uL (1.0-4.8); Lymphocytes % (A) 1 %; MCH 32.4 pg (25.0-35.0); MCHC 33.5 g/dL (31.0-37.0); MCV 96.7 fL (80.0-100.0); Mean Platelet Volume 6.9; Monocytes # (A) 0.6 k/uL (0-1.0); Monocytes % (A) 6 %; Neutrophils # (A) 9.7 k/uL (1.3-7.7); Neutrophils % (A) 89 %; Platelet Count 252 k/uL (150-450); RBC 3.53 m/uL (4.30-5.90); RDW 13.4 % (11.5-15.5)
[2018-12-22 07:40] LABS: African American GFR (CKD) >90 (>60 ml/min/1.73 sqM); Anion Gap 10 mmol/L; Blood Urea Nitrogen 13 mg/dL (9-20); Calcium 8.7 mg/dL (8.4-10.2); Carbon Dioxide 26 mmol/L (22-30); Chloride 101 mmol/L (98-107); Glucose 125 mg/dL (74-99); Potassium 3.7 mmol/L (3.5-5.1); Sodium 137 mmol/L (137-145)
--- NOTE | 2018-12-22 08:58 | P.PN ---
Progress Note - Text Progress Note Date: 12/22/18 Patient without complaints. Pain controlled. Denies headache or leg weakness. Epidural @ 8 ml VSS Back - epidural site clean and dry A/P POD#1 s/p exploratory laparotomy with ileostomy reversal - continue epidural
[2018-12-22] MEDS: HEPARIN SODIUM,PORCINE 5,000 UNIT/ML 1 ML VIAL SQ SCH ×2 (09:53→21:42)
[2018-12-22] MEDS: KETOROLAC 30 MG/ML 1 ML VIAL IVP PRN (09:53)
[2018-12-22] MEDS ORDERED: SODIUM CHLORIDE 0.9% 1,000 ML IV ONE (11:20)
--- NOTE | 2018-12-22 11:23 | P.PN ---
Subjective Progress Note Date: 12/22/18 CHIEF COMPLAINT: Perforated ischemic right colitis HISTORY OF PRESENT ILLNESS: The patient is a 63-year-old male who is postop day 1 status post ileostomy reversal. Pain is well-controlled. He does complain of moderate dizziness including upon standing. He has orthostatic hypotension. Nurse is at bedside. Family is at bedside. He is completely nothing by mouth status from pre-existing oropharyngeal cancer. All nutrition is via PEG tube. From discussion with nurse, he did have residuals. Now residuals are resolved. No current nausea and vomiting at this time. ROS: No reports of nausea and vomiting. No fevers or chills. No new chest pain. PHYSICAL EXAM: VITAL SIGNS: Reviewed CONSTITUTIONAL: Well developed and in no acute distress. EYES: Conjuctivae without sclera icterus. Extraocular movements grossly intact. HEAD, EARS, NOSE, THROAT: Moist buccal mucosa. Head is atraumatic, normocephalic. Hears conversational speech. No nasal drainage. NECK: Supple. No thyroidomegaly. Previous tach site. RESPIRATORY: Non-labored respirations and equal bilateral excursions. CARDIOVASCULAR: Palpable 2+ radial pulses. Regular rate. Regular rhythm. MUSCULOSKELETAL: No gross deformity of the lower extremities noted. No clubbing. No cyanosis. SKIN: Good skin turgor. Well perfused. NEUROLOGIC: Cranial nerves I through XII grossly intact. No focal or lateralizing signs. PSYCH: Appropriate affect. Alert and oriented to person, place and time. ABDOMEN: Incisions clean dry and intact. : Dark og urine ASSESSMENT: 1. Perforated ischemic right colitis 2. Ileostomy status PLAN: 1. IV fluid bolus 1000 mL secondary to dehydration and orthostatic hypotension. Objective - Vital Signs Vital signs: Vital Signs Temp 98.4 F 12/22/18 08:07 Pulse 77 12/22/18 08:07 Resp 14 12/22/18 08:07 BP 94/61 12/22/18 10:56 Pulse Ox 97 12/22/18 08:07 Intake & Output 12/21/18 12/22/18 12/22/18 18:59 06:59 18:59 Intake Total 1914.85 1602.9 Output Total 100 990 Balance 1814.85 612.9 Weight 63.503 kg Intake: IV 1900 Intake, IV Titration 14.85 1122.9 Amount Ropivacaine 400 mg 14.85 72.9 Hydromorphone (Pf) 5 mg In Sodium Chloride 0.9% 170 ml @ Per Protocol EPIDURAL .Q0M PRN Rx#: [id number] Sodium Chloride 0.9% 1, 900 000 ml @ 100 mls/hr IV . Q10H [facility] Rx#:[id number] ceFAZolin 2 gm In Sodium 50 Chloride 0.9% 50 ml @ 100 mls/hr IVPB Q8HR [facility] Rx# :[id number] metroNIDAZOLE-NS PMX 500 100 mg In Saline 1 100ml.bag @ 100 mls/hr IVPB Q6HR [facility] Rx#:[id number] Tube Feeding 480 Output: Urine 50 990 Estimated Blood Loss 50 Other: Voiding Method Indwelling Catheter Indwelling Catheter # Voids 2 1 - Labs CBC & Chem 7: 12/24/18 06:20 12/24/18 06:20 Labs: Abnormal Lab Results - Last 24 Hours (Table) 12/22/18 12/22/18 Range/Units 06:31 06:31 WBC 11.0 H (3.8-10.6) k/uL RBC 3.53 L (4.30-5.90) m/uL Hgb 11.4 L (13.0-17.5) gm/dL Hct 34.2 L (39.0-53.0) % Neutrophils # 9.7 H (1.3-7.7) k/uL Lymphocytes # 0.1 L (1.0-4.8) k/uL Creatinine 0.56 L (0.66-1.25) mg/dL Glucose 125 H (74-99) mg/dL
[2018-12-22] MEDS: LACTATED RINGERS 1,000 ML IV SCH (12:48)
[2018-12-22] MEDS: ROPIVACAINE 400 MG, HYDROMORPHONE (PF) 5 MG in SODIUM CHLORIDE 0.9% 170 ML EPIDURAL PRN (16:01)
[2018-12-23] MEDS: KETOROLAC 30 MG/ML 1 ML VIAL IVP PRN ×2 (02:50→11:53)
[2018-12-23 07:25] LABS: Basophils % (A) 0 %; Eosinophils # (A) 0.5 k/uL (0-0.7); Eosinophils % (A) 5 %; HCT 32.3 % (39.0-53.0); HGB 10.8 gm/dL (13.0-17.5); Lymphocytes # (A) 0.3 k/uL (1.0-4.8); Lymphocytes % (A) 3 %; MCH 32.6 pg (25.0-35.0); MCHC 33.5 g/dL (31.0-37.0); MCV 97.2 fL (80.0-100.0); Mean Platelet Volume 6.3; Monocytes # (A) 0.6 k/uL (0-1.0); Monocytes % (A) 6 %; Neutrophils # (A) 8.6 k/uL (1.3-7.7); Neutrophils % (A) 84 %; Platelet Count 236 k/uL (150-450); RBC 3.33 m/uL (4.30-5.90); RDW 13.6 % (11.5-15.5); WBC 10.3 k/uL (3.8-10.6)
[2018-12-23 07:32] LABS: ALT 19 U/L (21-72); AST 32 U/L (17-59); African American GFR (CKD) >90 (>60 ml/min/1.73 sqM); Albumin 2.5 g/dL (3.5-5.0); Alkaline Phosphatase 58 U/L (38-126); Anion Gap 4 mmol/L; Blood Urea Nitrogen 8 mg/dL (9-20); Calcium 8.5 mg/dL (8.4-10.2); Carbon Dioxide 27 mmol/L (22-30); Chloride 108 mmol/L (98-107); Glucose 87 mg/dL (74-99); Potassium 3.2 mmol/L (3.5-5.1); Sodium 139 mmol/L (137-145); Total Bilirubin 0.7 mg/dL (0.2-1.3); Total Protein 4.8 g/dL (6.3-8.2)
--- NOTE | 2018-12-23 08:09 | P.PN ---
Progress Note - Text Progress Note Date: 12/23/18 Patient with more abdominal discomfort today. Epidural decreased to 4 ml/hr from 8 ml/hr due to patient having episodes of hypotension 12/22. Denies headache or leg weakness. VSS Epidural site clean and dry A/P POD#2 s/p exploratory laparotomy with ileostomy reversal - increase epidural to 6 ml/hr if patient's BP allows
[2018-12-23] MEDS ORDERED: TAMSULOSIN 0.4 MG CAP.ER.24H PO SCH (08:30)
[2018-12-23] MEDS: ALVIMOPAN 12 MG CAPSULE PO SCH ×2 (08:44→20:26)
[2018-12-23] MEDS: PANTOPRAZOLE 40 MG/10 ML VIAL IVP SCH (08:45)
[2018-12-23] MEDS: HEPARIN SODIUM,PORCINE 5,000 UNIT/ML 1 ML VIAL SQ SCH ×2 (08:45→20:26)
[2018-12-23] MEDS: LACTATED RINGERS 1,000 ML IV SCH (08:52)
[2018-12-23] MEDS: SODIUM CHLORIDE 0.9% 1,000 ML IV SCH (08:52)
[2018-12-23] MEDS: METOCLOPRAMIDE 5 MG/ML 2 ML VIAL IVP PRN (11:53)
--- NOTE | 2018-12-23 11:57 | P.PN ---
Subjective Progress Note Date: 12/23/18 CHIEF COMPLAINT: History of end ileostomy for perforated colon HISTORY OF PRESENT ILLNESS: 63-year-old male who is status post open ileostomy reversal and removal of right internal jugular venous Port-A-Cath performed on 12/21/2018. Patient examined this morning at the bedside. He reports slight nausea but denies emesis. 2 feeding was infusing overnight at 60 mL an hour. Patient began having increased abdominal pain and heartburn. His tube feedings were stopped. He states his symptoms have resolved this morning. He denies passing flatus or having a bowel movement. Patient reports he was dizzy yesterday which has also improved this morning. Patient's pain is controlled at this time. Epidurals infusing at 4 mL an hour. WBC 10.3. Hemoglobin 10.8. PHYSICAL EXAM: VITAL SIGNS: Reviewed GENERAL: Well-developed in no acute distress. HEENT: No sclera icterus. Extraocular movements grossly intact. Moist buccal mucosa. Head is atraumatic, normocephalic. Hears conversational speech. No nasal drainage. NECK: Supple without lymphadenopathy. CHEST: Non-labored respirations and equal bilateral excursions. CARDIOVASCULAR: Regular rate with regular rhythm. Palpable 2+ radial pulses. ABDOMEN: Soft. Nondistended. Appropriate surgical tenderness. Midline incision CDI. Abdominal binder present. PEG tube noted. Currently clamped. MUSCULOSKELETAL: No clubbing, cyanosis or edema. NEUROLOGIC: No focal or lateralizing signs. Cranial nerves II through XII grossly intact. PSYCH: Appropriate affect. Alert and oriented to person, place and time. SKIN: Well perfused. Good skin turgor. ASSESSMENT: 1. History of perforated ischemic colitis, status post open ileostomy reversal and removal of right internal jugular Port-A-Cath PLAN: 1. Continue epidural for pain management. Will DC tomorrow (POD #3) 2. Continue hodgson catheter while epidural in place 3. Continue to hold tube feedings 4. Continue Entereg. Continue Reglan. 5. Incentive spirometry 6. Activity as tolerated 7. Replace potassium. Check magnesium level. Nurse practitioner note has been reviewed by physician. Signing provider agrees with the documented findings, assessment, and plan of care. Objective - Vital Signs Vital signs: Vital Signs Temp 98.5 F 12/23/18 07:25 Pulse 70 12/23/18 07:25 Resp 12 12/23/18 07:25 BP 105/62 12/23/18 07:25 Pulse Ox 96 12/23/18 07:25 Intake & Output 12/22/18 12/23/18 12/23/18 18:59 06:59 18:59 Intake Total 2815.067 850 Output Total 355 690 Balance 2460.067 160 Weight 63.503 kg Intake: Intake, IV Titration 2035.067 850 Amount Ropivacaine 400 mg 135.067 Hydromorphone (Pf) 5 mg In Sodium Chloride 0.9% 170 ml @ Per Protocol EPIDURAL .Q0M PRN Rx#: [id number] Sodium Chloride 0.9% 1, 800 850 000 ml @ 100 mls/hr IV . Q10H DIANE Rx#:[id number] Sodium Chloride 0.9% 1, 1000 000 ml @ 999 mls/hr IV . Q1H1M ONE Rx#:[id number] ceFAZolin 2 gm In Sodium 100 Chloride 0.9% 50 ml @ 100 mls/hr IVPB Q8HR DIANE Rx# :[id number] Tube Feeding 540 Other 240 Output: Urine 355 690 Other: Voiding Method Indwelling Catheter Indwelling Catheter Indwelling Catheter # Voids 1 - Labs CBC & Chem 7: 12/23/18 06:47 12/23/18 06:47 Labs: Abnormal Lab Results - Last 24 Hours (Table) 12/23/18 12/23/18 Range/Units 06:47 06:47 RBC 3.33 L (4.30-5.90) m/uL Hgb 10.8 L (13.0-17.5) gm/dL Hct 32.3 L (39.0-53.0) % Neutrophils # 8.6 H (1.3-7.7) k/uL Lymphocytes # 0.3 L (1.0-4.8) k/uL Potassium 3.2 L (3.5-5.1) mmol/L Chloride 108 H (98-107) mmol/L BUN 8 L (9-20) mg/dL Creatinine 0.48 L (0.66-1.25) mg/dL ALT 19 L (21-72) U/L Total Protein 4.8 L (6.3-8.2) g/dL Albumin 2.5 L (3.5-5.0) g/dL
[2018-12-23] MEDS: POTASSIUM CHLORIDE 10 MEQ in WATER FOR INJECTION 1 100ML.BAG IVPB SCH ×4 (13:59→20:26)
[2018-12-23] MEDS: 0.9% NACL WITH KCL 40 MEQ/L 1,000 ML IV SCH (17:57)
[2018-12-23] MEDS: MAGNESIUM SULFATE-D5W PMX 1 GM in DEXTROSE/WATER 1 100ML.BAG IVPB SCH (22:53)
[2018-12-24] MEDS: MAGNESIUM SULFATE-D5W PMX 1 GM in DEXTROSE/WATER 1 100ML.BAG IVPB SCH ×3 (00:18→02:59)
--- NOTE | 2018-12-24 06:34 | P.PN ---
Progress Note - Text am 33-year-old male with a status post explore lap with ileostomy reversal by Dr. Yap. has an epidural catheter for postop pain control with the solution running at 4 mL an hour with a VAS of 2, no motor or sensory deficits noted, dressing clean dry and intact. Plan to DC epidural nurse informed
[2018-12-24 07:15] LABS: Basophils # (A) 0.1 k/uL (0-0.2); Basophils % (A) 1 %; Eosinophils # (A) 0.4 k/uL (0-0.7); Eosinophils % (A) 5 %; HCT 35.3 % (39.0-53.0); HGB 11.4 gm/dL (13.0-17.5); Lymphocytes # (A) 0.2 k/uL (1.0-4.8); Lymphocytes % (A) 3 %; MCH 31.6 pg (25.0-35.0); MCHC 32.3 g/dL (31.0-37.0); Mean Platelet Volume 7.3; Monocytes # (A) 0.6 k/uL (0-1.0); Monocytes % (A) 8 %; Neutrophils # (A) 6.3 k/uL (1.3-7.7); Neutrophils % (A) 81 %; Platelet Count 189 k/uL (150-450); RDW 13.5 % (11.5-15.5); WBC 7.7 k/uL (3.8-10.6)
[2018-12-24] MEDS: 0.9% NACL WITH KCL 40 MEQ/L 1,000 ML IV SCH (07:17)
[2018-12-24 07:44] VITALS: BP 124/68; PULSE 76; RESP 12; TEMP 98
[2018-12-24 08:15] LABS: African American GFR (CKD) >90 (>60 ml/min/1.73 sqM); Anion Gap 6 mmol/L; Blood Urea Nitrogen 5 mg/dL (9-20); Carbon Dioxide 27 mmol/L (22-30); Chloride 104 mmol/L (98-107); Glucose 108 mg/dL (74-99); Sodium 137 mmol/L (137-145)
[2018-12-24 08:19] LABS: Potassium 3.4 mmol/L (3.5-5.1)
[2018-12-24] MEDS: PANTOPRAZOLE 40 MG/10 ML VIAL IVP SCH (09:23)
[2018-12-24] MEDS: HEPARIN SODIUM,PORCINE 5,000 UNIT/ML 1 ML VIAL SQ SCH (09:29)
[2018-12-24] MEDS: ALVIMOPAN 12 MG CAPSULE PO SCH (09:29)
--- NOTE | 2018-12-24 13:09 | P.DS ---
Providers Date of admission: 12/20/18 13:04 Expected date of discharge: 12/24/18 Attending physician: Heather Yap Primary care physician: Raphael Kaufman [facility] Course: 63-year-old male with a history of end ileostomy for perforated colon who is status post open ileostomy reversal and removal of right internal jugular venous Port-A-Cath performed on 12/21/2018. Patient is doing well postoperatively without any immediate complications. 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 He has been tolerating tube feedings and having bowel movements. Pain is controlled with oral medications. Vital signs have been stable. He is stable for discharge home today. Please see EMR for further hospital course details. Discharge Diagnosis: 1. History of perforated ischemic colitis, status post open ileostomy reversal and removal of right internal jugular Port-A-Cath Nurse practitioner note has been reviewed by physician. Signing provider agrees with the documented findings, assessment, and plan of care. Patient Condition at Discharge: Stable Plan - Discharge Summary Discharge Rx Participant: Yes New Discharge Prescriptions: Continue HYDROcodone/APAP 5-325MG [Dunnellon 5-325] 1 tab PEG/G-TUBE HS fentaNYL 25MCG/HR PATCH [Duragesic 25MCG/HR] 1 patch TRANSDERM Q72H risperiDONE ORAL SOLN [RisperDAL ORAL SOLN] 2 mg PEG/G-TUBE HS Sertraline 20mg Ml 100 mg PEG/G-TUBE AC-BRKFST PRN PRN Reason: Anxiety Discharge Medication List HYDROcodone/APAP 5-325MG [Dunnellon 5-325] 1 tab PEG/G-TUBE HS 02/20/18 [History] fentaNYL 25MCG/HR PATCH [Duragesic 25MCG/HR] 1 patch TRANSDERM Q72H 02/20/18 [History] Sertraline 20mg Ml 100 mg PEG/G-TUBE AC-BRKFST PRN 05/21/18 [History] risperiDONE ORAL SOLN [RisperDAL ORAL SOLN] 2 mg PEG/G-TUBE HS 05/21/18 [History] Follow up Appointment(s)/Referral(s): Raphael Kafuman MD [Primary Care Provider] - 01/03/19 10:15 am Heather Yap MD [STAFF PHYSICIAN] - 12/31/18 3:40 pm
== END 2018-12-24 15:43 | disposition home or self-care (01) | DRG 331 ==
LOC: 2ORMAIN 13:04 → EDSTATUS 13:15 → 4SSUR 13:47
PROVIDERS: ADMIT Surgery Plastic and Reconstructive Surgery; ATTEND Surgery Plastic and Reconstructive Surgery
PROC: 0JPT0WZ Removal of Totally Implantable Vascular Access Device from Trunk Subcutaneous Tissue and Fascia, Open Approach (ICD-10-PCS; 2018-12-21)
PROC: 0DBB0ZZ Excision of Ileum, Open Approach (ICD-10-PCS; principal; 2018-12-21 07:30)
PROC: 05PYX3Z Removal of Infusion Device from Upper Vein, External Approach (ICD-10-PCS; 2018-12-21 07:30)
DX: Z43.2 Encounter for attention to ileostomy (principal); Z93.0 Tracheostomy status; I95.1 Orthostatic hypotension; E86.0 Dehydration; J45.909 Unspecified asthma, uncomplicated; F41.9 Anxiety disorder, unspecified; F32.9 Major depressive disorder, single episode, unspecified; K21.9 Gastro-esophageal reflux disease without esophagitis; M19.90 Unspecified osteoarthritis, unspecified site; Z93.1 Gastrostomy status; Z79.891 Long term (current) use of opiate analgesic; Z79.899 Other long term (current) drug therapy; Z85.818 Personal history of malignant neoplasm of other sites of lip, oral cavity, and pharynx; Z87.19 Personal history of other diseases of the digestive system; Z92.21 Personal history of antineoplastic chemotherapy; Z92.3 Personal history of irradiation; Z87.891 Personal history of nicotine dependence; Z91.040 Latex allergy status; Z91.048 Other nonmedicinal substance allergy status; Z80.42 Family history of malignant neoplasm of prostate; Z80.8 Family history of malignant neoplasm of other organs or systems; Z80.41 Family history of malignant neoplasm of ovary; Z80.3 Family history of malignant neoplasm of breast
CPT/HCPCS: 80048; 80053; 83735; 85025; 86850; 86900; 86901; 88304

== ENCOUNTER → 2019-01-11 | Outpatient (CLI) | payer OTHER ==
--- NOTE | 2019-01-13 12:27 | PE ---
EXAMINATION TYPE: PET CT fusion skull to thigh DATE OF EXAM: 01/11/2019 COMPARISON: Prior PET/CT October 05, 2018 and older studies HISTORY: Throat cancer completed chemotherapy in June and radiation treatment in July. TECHNIQUE: Following the intravenous administration of 11.244 mCi of F-18 FDG, whole body images are performed from the skull base to the midthigh. Images are reviewed on the computer in the coronal, axial, and sagittal planes. Reconstructed rotating images are created on independent workstation and reviewed on the computer. A noncontrast CT is performed in conjunction with the PET scan. Dedicate d PET/CT imaging of the neck is also performed SCAN: Subsequent Scan FINDINGS: SKULL BASE AND NECK: Areas of mild hypermetabolic uptake right lateral oral cavity near image 35 stacy wn improvement from prior study with diminished soft tissue thickening also present. Hypermetabolic u ptake right base of tongue prior study shows marked improvement with persistent asymmetric mild hyper metabolic uptake. No new areas of suspicious hypermetabolic uptake. CHEST, MEDIASTINUM, AND HILAR REGION: New hypermetabolic uptake anterior right chest wall with Max HUFFMAN V of 2.88 on axial image 50. This correlates with irregular soft tissue density presumed focal cellul itis or inflammatory change. No additional areas of new hypermetabolic uptake are identified. ABDOMEN AND PELVIS: No new areas of suspicious hypermetabolic uptake. OSSEOUS STRUCTURES: Increasing hypermetabolic uptake corresponds to sclerosis focus left T9 transvers e process axial image 81, max SUV is 5.42. There is additional hypermetabolic sclerotic lesion right iliac bone near the ischial tuberosity axial image 196 with max SUV of 5.[address]: Coronary artery calcification is redemonstrated. Bilateral gynecomastia again seen. Suspect left thyroid nodule axial image 40. PEG tube redemonstrated. Right-sided partial colectomy changes again seen. Interval reversal of right -sided ostomy. Scar tissue at this level is now present. Large calcified intraluminal calculus in the bladder. Mild diffuse uptake left shoulder region is presumed postinflammatory. IMPRESSION: Improved hypermetabolic uptake in the right oral cavity and tongue base however progressi ve osseous metastatic disease is felt present.
== END | disposition home or self-care (01) ==
LOC: RADPETMAIN 09:27
PROVIDERS: ATTEND Internal Medicine Hematology & Oncology
DX: C76.0 Malignant neoplasm of head, face and neck (principal); R93.89 Abnormal findings on diagnostic imaging of other specified body structures
CPT/HCPCS: 78815; A9552

== ENCOUNTER → 2019-01-27 | Outpatient (CLI) | payer OTHER ==
--- NOTE | 2019-01-27 22:54 | MR ---
EXAMINATION TYPE: MR thoracic spine wo con DATE OF EXAM: 01/27/2019 COMPARISON: PET/CT January 11, 2019 HISTORY: Mid back pain, hx throat ca w/bone mets TECHNIQUE: Multiplanar, multisequence imaging of thoracic spine is performed without contrast, patien t cannot complete postcontrast imaging due to pain. FINDINGS: Spinal cord shows normal course, caliber, and signal as it courses the thoracic spine. Reese tebral body heights and alignment are satisfactory. Moderate multilevel anterior spurring is redemons trated. Bone marrow signal intensity is overall slightly heterogeneous without discrete lesion clearl y seen. Posterior disc herniation and T3-T4 and to lesser degree T8-T9 level on sagittal images minim ally effaces the anterior thecal sac. Review of the axial images shows no no additional significant disc herniation at any thoracic level. Visualized portion of thorax and upper abdomen show no suspicious abnormality. IMPRESSION: No osseous metastatic disease clearly identified on thoracic spine MRI without contrast. Lesion left T9 rib origin seen better on recent PET/CT less well visualized on MRI images. Some mild degenerative changes are noted as detailed above.
--- NOTE | 2019-01-27 23:00 | MR ---
EXAMINATION TYPE: MR hip RT wo con DATE OF EXAM: 01/27/2019 COMPARISON: PET CT January 11, 2019 HISTORY: Rt hip pain, hx throat ca w/bone mets Standard multiplanar, multisequence MRI departmental protocol Multiplanar, multisequence images of the pelvis focusing on right hip were acquired. FINDINGS: There is diminished T1 signal near level of right ischial tuberosity with better visualized abnormal T2 hyperintense signal measuring 18 x 17 mm axial image 11 series 501 corresponding to area of suspicion on recent PET/CT. Second lesion near a shield tuberosity axial image 90 slightly smalle r measuring 18 x 12 mm cyst noted corresponding to axial image 196 and PET/CT extending towards the l ateral aspect of the inferior pelvic ramus. No definitive additional osseous lesions clearly seen. Symmetric small bilateral hip joint effusions presumed physiologic. Moderate superior joint space loss in both hips redemonstrated. Femoral head sh apes are maintained bilaterally. Muscle bulk is preserved bilaterally. No suspicious groin adenopathy or hernia. Intraluminal calculus in the bladder redemonstrated coronal image 11 measuring 15 mm long axis. IMPRESSION: Confirmation of 2 suspected osseous metastatic lesions near region of right ischial tuber osity as first identified on recent PET CT
== END | disposition home or self-care (01) ==
LOC: RADMRIMAIN 19:51
PROVIDERS: ATTEND Internal Medicine Hematology & Oncology
DX: M47.814 Spondylosis without myelopathy or radiculopathy, thoracic region (principal); S24.153A Other incomplete lesion at T7-T10 level of thoracic spinal cord, initial encounter; C79.51 Secondary malignant neoplasm of bone
CPT/HCPCS: 72146

== ENCOUNTER → 2019-02-07 | Outpatient (CLI) | payer OTHER ==
--- NOTE | 2019-02-07 14:39 | FL ---
Modified barium swallow. HISTORY: Dysphagia. Modified barium swallow was performed with the department of speech pathology. The patient was prese nted with various consistencies of barium. There is aspiration with thin liquid barium and honey thick barium. Examination was subsequently term inated. Full report is to follow from the department of speech pathology. Impression: There is aspiration with thin liquid barium and honey thick barium.
== END | disposition home or self-care (01) ==
LOC: RADFLMAIN 11:23
PROVIDERS: ATTEND Family Medicine
DX: C10.9 Malignant neoplasm of oropharynx, unspecified (principal); R13.12 Dysphagia, oropharyngeal phase
CPT/HCPCS: 74230

== ENCOUNTER → 2019-07-25 | Outpatient (CLI) | payer OTHER ==
--- NOTE | 2019-07-25 15:09 | PE ---
Nuclear medicine PET/CT HISTORY: Head and neck cancer, subsequent Patient received 11.7 mCi F-18 FDG intravenously in delayed scanning was performed from skull base to the mid thighs. Small [id number] images were obtained through the head and neck. Correlation to prior nuclear medicine PET/CT 04/04/2019 Head and neck: Similar uptake is noted at the level of the lateral margins of the tongue, posterior a spect of the tongue towards the right of midline but show less intense appearance as compared to prio r exam. Uptake described on prior exam along the submandibular glands likely rather related to the fl oor the mouth and has also improved compared to prior exam. There is a large amount of streak artifact present due to dental amalgam. Localization of some uptake in the right may be attributable to the mandible. CHEST: There is no evident adenopathy present. No evident lung mass. No mediastinal, axillary, or hil ar adenopathy, no pleural pericardial effusion. Abdomen is stable. Osseous structures show a similar distribution of abnormal uptake. IMPRESSION: There is improvement in uptake within the head and neck with additional focus noted possi rhea related to patient's mandible. Abnormal bone uptake shows a similar distribution to prior exam.
== END | disposition home or self-care (01) ==
LOC: RADPETMAIN 07:54
PROVIDERS: ATTEND Internal Medicine Hematology & Oncology
DX: C76.0 Malignant neoplasm of head, face and neck (principal)
CPT/HCPCS: 78815; A9552

== ENCOUNTER 2019-08-29 09:59 | Day surgery (SDC) | payer OTHER ==
[2019-08-28 11:36] VITALS: BMI 26.8
[~2019-08-29 09:59] MED LIST changes: -ACETAMINOPHEN TAB 500 MG TAB PO ONE; -ALVIMOPAN 12 MG CAPSULE PO ONE; -Antibiotics per Pharmacy 1 EACH MISC MISCELLANE PRN; -DEXAMETHASONE SOD PHOSPHATE 10 MG/ML 1 ML VIAL IV ONE; -HEPARIN SODIUM,PORCINE 5,000 UNIT/ML 1 ML VIAL SQ ONE; -HYDROmorphone 0.5 MG/0.5 ML SYRINGE IVP PRN; +LIDOCAINE 1% (10MG/ML) FOR IV START INTRADERMA PRN; -MELOXICAM 7.5 MG TAB PO ONE; -MIDAZOLAM 2 MG/2 ML VIAL IV PRN; -ONDANSETRON 4 MG/2 ML VIAL IVP ONE; -SCOPOLAMINE 1.5MG/72HR PATCH TRANSDERM ONE; -metroNIDAZOLE-NS PMX 500 MG in SALINE 1 100ML.BAG IVPB ONE
[2019-08-29 10:56] VITALS: RESP 16; TEMP 98.6
[2019-08-29] MEDS ORDERED: LIDOCAINE 1% INJ 10MG/ML (20 ML MDV) ONE (11:47)
[2019-08-29] MEDS ORDERED: PROPOFOL 10 MG/ML 20 ML VIAL IV ONE (11:47)
[2019-08-29] MEDS ORDERED: IV FLUID CONTINUATION 500 ML IV ONE (12:07)
[2019-08-29] MEDS ORDERED: LACTATED RINGERS 1,000 ML IV ONE (12:07)
--- NOTE | 2019-08-29 12:08 | P.PCN ---
Date of Procedure: 08/29/19 Procedure(s) Performed: BRIEF HISTORY: Patient is 64-year-old, pleasant, white male diagnosed with head and neck CA in November 2017 at which time he underwent a PEG tube placement. Please status post chemoradiation and remains in clinical remission. He is here for evaluate of dysphagia and PEG malfunction.. PROCEDURE PERFORMED: Attempted EGD and 20-[employer] balloon PEG tube replacement. PREOPERATIVE DIAGNOSIS: dysphagia/PEG tube malfunction. IV sedation per anesthesia. PROCEDURE: After informed consent was obtained, the patient was brought into the endoscopy unit. IV sedation was administered by Anesthesia under continuous monitoring. Initially the Olympus GIF-140 video endoscope was inserted into the mouth. 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 At this time I proceeded with removing the previously placed PEG tube By applying gentle traction from anterior abdominal wall. Subsequently a 20-[employer] balloon replacement PEG tube was placed into the existing gastrostomy site and advanced nto the stomach and the balloon was inflated with 20 mL of water. External bumper was placed at 4 cm mohinder. Patient tolerated the procedure well. IMPRESSION: 1. Attempted EGD and the scope could not be advanced to the upper esophageal sphincter because of the stricture. 2. PEG tube replacement as described above. RECOMMENDATIONS: The findings of this examination were discussed with the patient as well as his family. He will resume tube feeds today..
[2019-08-29 12:28] VITALS: BP 113/72; PULSE 66
== END 2019-08-29 12:40 | disposition home or self-care (01) ==
LOC: ORWHC2ENDO 09:59
PROVIDERS: ATTEND Internal Medicine Gastroenterology
DX: K94.23 Gastrostomy malfunction (principal); Z85.89 Personal history of malignant neoplasm of other organs and systems; Z92.3 Personal history of irradiation; Z92.21 Personal history of antineoplastic chemotherapy
CPT/HCPCS: 43246; J2001; J2704

== ENCOUNTER 2019-08-30 19:07 | Observation (INO) | payer OTHER ==
--- NOTE | 2019-08-30 19:34 | ED ---
General Adult HPI - General Chief complaint: GI Bleed Stated complaint: vomitting blood/incision bleeding Time Seen by Provider: 08/30/19 19:21 Source: patient, family Mode of arrival: wheelchair Limitations: no limitations - History of Present Illness Initial comments: Dictation was produced using [employer] dictation software. please excuse any gramm atical, word or spelling errors. This patient was cared for during a federal and state declared state of emergency secondary to Covid 19 Chief Complaint: 64-year-old male presents with bloody emesis and epigastric pain. History of Present Illness: Patient's 64-year-old male since yesterday he's been having epigastric pain and bloody emesis. Yesterday patient had attempted upper EGD done by GI doctor. 2 years ago patient had a PEG tube placed. Yesterday he had evaluation for attempted EGD and PEG tube replacement. According to family member at bedside they were not able to pass the scope passed esophagus because of blockages. Patient states that ever since yesterday he's been having worsening symptoms. The ROS documented in this emergency department record has been reviewed and confirmed by me. Those systems with pertinent positive or negative responses have been documented in the HPI. All other systems are other negative and/or noncontributory. PHYSICAL EXAM: General Impression: Alert and oriented x3, acute distress secondary to pain HEENT: Normocephalic atraumatic, extra-ocular movements intact, pupils equal and reactive to light bilaterally, mucous membranes moist, no oropharyngeal bleeding Cardiovascular: Heart regular rate and rhythm Chest: Able to complete full sentences, no retractions, no tachypnea Abdomen: abdomen soft, epigastric tenderness to palpation, non-distended, no organomegaly Musculoskeletal: Pulses present and equal in all extremities, no peripheral edema Motor: no focal deficits noted Neurological: CN II-XII grossly intact, no focal motor or sensory deficits noted Skin: Intact with no visualized rashes Psych: Normal affect and mood ED course: 64-year-old male presents with epigastric pain and bloody vomiting since yesterday status post EGD attempt and PEG tube replacement. Patient having active hematemesis at this time. He does appear to be stable. He does have some mild epigastric tenderness to palpation. X-ray shows a little bit of irritation however no induration or signs of infection. Laboratory evaluation obtained. CBC is within acceptable limits. Coag panel is negative. Metabolic panel shows no acute process. Patient does have a lactic acidosis of 3.5. Sedentary clear what is causing this lactic acidosis. Given maladies and symptoms CT abdomen and pelvis was obtained to evaluate for abdominal ischemia. CT shows possible malpositioning of the PEG tube. There is also some cancerous lesions that are seen. Given possible malpositioning those seen on the CT. pegogram was obtained showing good positioning. Patient be admitted. Case is discussed with Dr. Kaufman was went except patient's care. GI on consult. EKG interpretation: Ventricular rate 85, normal sinus rhythm,. 122, QRS 80, QTc 433. No IL prolongation, no QTC prolongation, no ST or T-wave changes noted.. Overall, this EKG is unremarkable - Related Data Home Medications Medication Instructions Recorded Confirmed ALPRAZolam [Xanax] 0.5 mg PO BID 08/28/19 08/30/19 PARoxetine HCL [Paxil] 10 mg PO DAILY 08/28/19 08/30/19 Allergies Allergy/AdvReac Type Severity Reaction Status Date / Time adhesive tape Allergy Rash/Hives Verified 08/30/19 22:01 latex Allergy Rash/Hives Verified 08/30/19 22:01 Review of Systems ROS Statement: Those systems with pertinent positive or pertinent negative responses have been documented in the HPI. ROS Other: All systems not noted in ROS Statement are negative. Past Medical History Past Medical History: Cancer, Osteoarthritis (OA) Additional Past Medical History / Comment(s): esophageal cancer with trach, " ABDOMINAL PAIN NEEDED A BOWEL RESECTION", TRACHEOSTOMY REMOVED History of Any Multi-Drug Resistant Organisms: None Reported Past Surgical History: Bowel Resection Additional Past Surgical History / Comment(s): tracheostomy, and PEG tube, colostomy, Past Anesthesia/Blood Transfusion Reactions: No Reported Reaction Past Psychological History: Anxiety, Depression Smoking Status: Former smoker Past Alcohol Use History: None Reported Past Drug Use History: None Reported - Past Family History Father Family Medical History: Cancer Additional Family Medical History / Comment(s): prostate cancer that spread to the brain Mother Family Medical History: Cancer Additional Family Medical History / Comment(s): ovarian cancer Sister(s) Family Medical History: Cancer Additional Family Medical History / Comment(s): breast cancer General Exam Limitations: no limitations Course Vital Signs 08/30/19 08/30/19 19:11 22:20 Temperature 98.5 F Pulse Rate 87 79 Respiratory 20 18 Rate Blood Pressure 115/75 111/63 O2 Sat by Pulse 98 97 Oximetry Medical Decision Making - Lab Data Result diagrams: 08/30/19 19:39 08/30/19 19:39 Lab Results 08/30/19 08/30/19 08/30/19 Range/Units 19:39 19:39 19:39 WBC 12.6 H (3.8-10.6) k/uL RBC 4.79 (4.30-5.90) m/uL Hgb 15.4 (13.0-17.5) gm/dL Hct 44.8 (39.0-53.0) % MCV 93.5 (80.0-100.0) fL MCH 32.1 (25.0-35.0) pg MCHC 34.3 (31.0-37.0) g/dL RDW 13.3 (11.5-15.5) % Plt Count 209 (150-450) k/uL Neutrophils % 88 % Lymphocytes % 4 % Monocytes % 5 % Eosinophils % 1 % Basophils % 0 % Neutrophils # 11.2 H (1.3-7.7) k/uL Lymphocytes # 0.5 L (1.0-4.8) k/uL Monocytes # 0.7 (0-1.0) k/uL Eosinophils # 0.1 (0-0.7) k/uL Basophils # 0.0 (0-0.2) k/uL PT (9.0-12.0) sec INR (<1.2) APTT (22.0-30.0) sec Sodium 137 (137-145) mmol/L Potassium 4.5 (3.5-5.1) mmol/L Chloride 101 (98-107) mmol/L Carbon Dioxide 21 L (22-30) mmol/L Anion Gap 15 mmol/L BUN 17 (9-20) mg/dL Creatinine 0.62 L (0.66-1.25) mg/dL Est GFR (CKD-EPI)AfAm >90 (>60 ml/min/1.73 sqM) Est GFR (CKD-EPI)NonAf >90 (>60 ml/min/1.73 sqM) Glucose 146 H (74-99) mg/dL Lactic Ac Sepsis Rflx Plasma Lactic Acid Sherman (0.7-2.0) mmol/L Calcium 9.8 (8.4-10.2) mg/dL Total Bilirubin 2.2 H (0.2-1.3) mg/dL AST 33 (17-59) U/L ALT 19 (4-49) U/L Alkaline Phosphatase 130 H (38-126) U/L Total Protein 7.9 (6.3-8.2) g/dL Albumin 4.7 (3.5-5.0) g/dL Blood Type O Positive Blood Type Recheck O Pos Bld Type Recheck Status No Antibody Screen NEGATIVE Spec Expiration Date 09/02/2019 - 233808/30/19 08/30/19 08/30/19 Range/Units 19:50 20:15 20:59 WBC (3.8-10.6) k/uL RBC (4.30-5.90) m/uL Hgb (13.0-17.5) gm/dL Hct (39.0-53.0) % MCV (80.0-100.0) fL MCH (25.0-35.0) pg MCHC (31.0-37.0) g/dL RDW (11.5-15.5) % Plt Count (150-450) k/uL Neutrophils % % Lymphocytes % % Monocytes % % Eosinophils % % Basophils % % Neutrophils # (1.3-7.7) k/uL Lymphocytes # (1.0-4.8) k/uL Monocytes # (0-1.0) k/uL Eosinophils # (0-0.7) k/uL Basophils # (0-0.2) k/uL PT 10.3 (9.0-12.0) sec INR 1.0 (<1.2) APTT 24.1 (22.0-30.0) sec Sodium (137-145) mmol/L Potassium (3.5-5.1) mmol/L Chloride (98-107) mmol/L Carbon Dioxide (22-30) mmol/L Anion Gap mmol/L BUN (9-20) mg/dL Creatinine (0.66-1.25) mg/dL Est GFR (CKD-EPI)AfAm (>60 ml/min/1.73 sqM) Est GFR (CKD-EPI)NonAf (>60 ml/min/1.73 sqM) Glucose (74-99) mg/dL Lactic Ac Sepsis Rflx Y Plasma Lactic Acid Sherman 3.5 H* (0.7-2.0) mmol/L Calcium (8.4-10.2) mg/dL Total Bilirubin (0.2-1.3) mg/dL AST (17-59) U/L ALT (4-49) U/L Alkaline Phosphatase (38-126) U/L Total Protein (6.3-8.2) g/dL Albumin (3.5-5.0) g/dL Blood Type Blood Type Recheck Bld Type Recheck Status Antibody Screen Spec Expiration Date Disposition Clinical Impression: GI bleed Disposition: ADMITTED IP TO THIS [facility] Condition: Fair Referrals: Raphael Kaufman MD [Primary Care Provider] - 1-2 days Decision Time: 23:43
[2019-08-30 19:55] LABS: Basophils % (A) 0 %; Eosinophils # (A) 0.1 k/uL (0-0.7); Eosinophils % (A) 1 %; HCT 44.8 % (39.0-53.0); HGB 15.4 gm/dL (13.0-17.5); Lymphocytes # (A) 0.5 k/uL (1.0-4.8); Lymphocytes % (A) 4 %; MCH 32.1 pg (25.0-35.0); MCHC 34.3 g/dL (31.0-37.0); MCV 93.5 fL (80.0-100.0); Mean Platelet Volume 8.4; Monocytes # (A) 0.7 k/uL (0-1.0); Monocytes % (A) 5 %; Neutrophils # (A) 11.2 k/uL (1.3-7.7); Neutrophils % (A) 88 %; Platelet Count 209 k/uL (150-450); RBC 4.79 m/uL (4.30-5.90); RDW 13.3 % (11.5-15.5); WBC 12.6 k/uL (3.8-10.6)
[2019-08-30 19:59] LABS: ALT 19 U/L (4-49); AST 33 U/L (17-59); African American GFR (CKD) >90 (>60 ml/min/1.73 sqM); Albumin 4.7 g/dL (3.5-5.0); Alkaline Phosphatase 130 U/L (38-126); Anion Gap 15 mmol/L; Blood Urea Nitrogen 17 mg/dL (9-20); Calcium 9.8 mg/dL (8.4-10.2); Carbon Dioxide 21 mmol/L (22-30); Chloride 101 mmol/L (98-107); Glucose 146 mg/dL (74-99); Non-African American GFR(CKD) >90 (>60 ml/min/1.73 sqM); Potassium 4.5 mmol/L (3.5-5.1); Sodium 137 mmol/L (137-145); Total Bilirubin 2.2 mg/dL (0.2-1.3); Total Protein 7.9 g/dL (6.3-8.2)
[2019-08-30] MEDS ORDERED: ONDANSETRON 4 MG/2 ML VIAL IVP STA ×2 (20:31→23:12)
[2019-08-30] MEDS ORDERED: MORPHINE SULFATE 4 MG/ML SYRINGE IVP STA ×2 (20:31→23:12)
[2019-08-30 20:44] LABS: Partial Thromboplastin Time 24.1 sec (22.0-30.0); Prothrombin Time 10.3 sec (9.0-12.0)
--- NOTE | 2019-08-30 22:14 | CT ---
EXAMINATION TYPE: CT abdomen pelvis w con DATE OF EXAM: 08/30/2019 COMPARISON: 07/25/2019 HISTORY: 64-year-old male PEG tube replaced on 08/29/2019. Vomiting blood today with abdominal pain. TECHNIQUE: Contiguous axial scanning of the abdomen and pelvis following administration of 100 ml Iso fanny 300 IV contrast. Delayed images through the kidneys and coronal/sagittal reconstructions perform ed. CT DLP: 799.1 mGycm Automated exposure control for dose reduction was used. FINDINGS: Heart normal size without pericardial effusion. Mild to moderate circumferential thickening distal esophagus. No pleural effusion. The previous PEG tube seen on 07/25/2019 PET/CT has been exchanged. There is now a large inflated ball oon which is positioned distally and embedded in the region of the distal gastric antrum or hilar reg ion. Proximally, there is moderate fluid distention of the stomach. No focal liver lesion or biliary ductal dilatation. Portal venous system is patent. Gallbladder, adrenal glands, kidneys, spleen, pancreas appear within normal limits. No dilated small bowel, free fluid, or free air. No mesenteric or retroperitoneal lymphadenopathy. Changes of partial right hemicolectomy with ileal colonic anastomosis. Mild stool burden. Mild sigmoi d diverticulosis. No pericolic inflammatory change. Bladder partially distended with a large 2.5 cm bladder calculus on the left. No abnormal fluid colle ction in the pelvis or pelvic lymphadenopathy. Bones: Abnormal sclerosis right ischium was hypermetabolic on prior PET/CT. Anterior endplate spondyl osis lower thoracic and upper lumbar spine. Focal sclerosis involving the left T9 transverse process was also hypermetabolic. 7.7 x 2.9 x 6.9 cm ovoid fatty tumor within the subcutaneous layer of the right lateral thoracoabdomi nal junction. Strandy densities are present within. This area was not seen to be hypermetabolic on e 02/01/2020 PET/CT and can be followed clinically. IMPRESSION: 1. PEG TUBE EXCHANGED IN THE INTERVAL FROM 07/25/2019. THE NEW BALLOON IS DISTALLY POSITIONED, POSSIBL Y IMPACTED AT THE LEVEL OF THE DISTAL GASTRIC ANTRUM OR PYLORIC REGION. IT MAY BE STUCK IN THIS REGIO N. THERE IS MODERATE FLUID DISTENTION OF THE STOMACH PROXIMALLY AND A SECONDARY PARTIAL OBSTRUCTION I S NOT EXCLUDED. THERE IS ALSO NEW WALL THICKENING OF THE DISTAL ESOPHAGUS THAT COULD REFLECT ESOPHAGI TIS. 2. CONSIDERATION SHOULD BE GIVEN TO DEFLATING THE BALLOON AND REINFLATING AFTER PULLING BACK TO AN AP PROPRIATE POSITION. 3. A 7.7 X 6.9 CM FATTY TUMOR WITHIN THE SUBCUTANEOUS LAYER OF THE RIGHT LATERAL THORACOABDOMINAL SUJATHA CTION. THERE ARE STRANDY DENSITIES WITHIN BUT NO HYPERMETABOLISM ON THE RECENT PET/CT. ATYPICAL LIPOM ATOUS TUMOR IS POSSIBLE. THIS AREA SHOULD BE FOLLOWED CLINICALLY TO ENSURE STABILITY. IF ANY GROWTH I S NOTED, THE PATIENT CAN BE REFERRED TO ORTHOPEDIC ONCOLOGY A LOW-GRADE LIPOSARCOMA WOULD THEN BE IN THE DIFFERENTIAL. 4. KNOWN OSSEOUS METASTATIC DISEASE INVOLVING THE LEFT T9 TRANSVERSE PROCESS AND THE RIGHT ISCHIUM. 5. KNOWN 2.5 CM LEFT BLADDER CALCULUS, SIGMOID DIVERTICULOSIS, AND PARTIAL RIGHT HEMICOLECTOMY.
--- NOTE | 2019-08-30 23:26 | XR ---
EXAMINATION TYPE: XR abdomen 1V DATE OF EXAM: 08/30/2019 COMPARISON: 04/19/2018 HISTORY: Check tube placement TECHNIQUE: 30 mL of Isovue was injected into the gastrostomy tube. FINDINGS: There is contrast opacification of the proximal duodenum. There is no evidence of any contr ast extravasation. There is no sign of a bowel obstruction. Lung bases are clear of consolidation. IMPRESSION: Gastrostomy tube appears in good position. No contrast extravasation. Nonacute abdomen.
[2019-08-30] MEDS ORDERED: NALOXONE 0.4 MG/ML 1 ML VIAL IV PRN (23:33)
[2019-08-30] MEDS ORDERED: ACETAMINOPHEN TAB 325 MG TAB PO PRN (23:33)
[2019-08-30] MEDS ORDERED: PANTOPRAZOLE 40 MG/10 ML VIAL IVP STA (23:35)
[2019-08-30] MEDS: SODIUM CHLORIDE 0.9% 1,000 ML IV SCH (23:38)
[2019-08-31] MEDS: MORPHINE SULFATE 4 MG/ML SYRINGE IV PRN ×3 (03:29→12:16)
[2019-08-31] MEDS ORDERED: ONDANSETRON 4 MG/2 ML VIAL IVP PRN (06:50)
--- NOTE | 2019-08-31 09:02 | HP ---
HISTORY AND PHYSICAL This is a 64-year-old white male with GI bleed, vomiting blood, rectal bleeding. He had EGD yesterday and it was unable to get through due to esophageal stricture. He has had epigastric pain and emesis since then. He normally gets food through his PEG tube and medicines through his PEG tube. He is admitted for possible GI bleeding and some bleeding status post EGD. Will monitor hemoglobins. Wait for GI recommendations. HOME MEDICINES: See old chart. PHYSICAL EXAMINATION: Cardiovascular S1, S2. Lungs with mild wheeze x4. Head normocephalic, atraumatic. Pupils equal, round, reactive. Psych: A little anxious, nervous. Skin with no rash, excoriations or bruising. Neurologic cranial nerves are intact. Musculoskeletal is decent. Temp 98.5, pulse 79-87, respiratory 18-20, O2 97-98, blood pressure is I11-115 over 60 to 70s. LABORATORY DATA: Labs are reviewed. IMAGING: CT of the abdomen and pelvis was obtained for abdominal ischemia. PEG tube was placed. Cancerous lesions. EKG no arrhythmia. FAMILY HISTORY: Father with cancer of the prostate. Mother with cancer of the ovaries. Sister with cancer of the breast. ASSESSMENT: 1. Gastrointestinal bleed, status post EGD. 2. Lactic acidosis, which is improved overnight. PLAN: Wait for GI recommendations prior to discharging him home. Wait for CBC this morning. Lactic acidosis is improving. 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 Please see further orders. MMODL / IJN: [id number] /
[2019-08-31 09:06] LABS: Basophils % (A) 0 %; Eosinophils # (A) 0.1 k/uL (0-0.7); Eosinophils % (A) 1 %; HCT 43.5 % (39.0-53.0); HGB 13.9 gm/dL (13.0-17.5); Lymphocytes # (A) 0.6 k/uL (1.0-4.8); Lymphocytes % (A) 6 %; MCH 29.8 pg (25.0-35.0); MCV 93.1 fL (80.0-100.0); Mean Platelet Volume 7.9; Monocytes # (A) 0.7 k/uL (0-1.0); Monocytes % (A) 7 %; Neutrophils # (A) 8.5 k/uL (1.3-7.7); Neutrophils % (A) 84 %; Platelet Count 245 k/uL (150-450); RBC 4.67 m/uL (4.30-5.90); RDW 13.4 % (11.5-15.5); WBC 10.1 k/uL (3.8-10.6)
--- NOTE | 2019-08-31 13:02 | XR ---
EXAMINATION TYPE: XR abdomen 1V , ONE VIEW DATE OF EXAM ORDERED: 08/31/2019 HISTORY: Peg tube placement. COMPARISON: Previous study dated 08/30/2019. FINDINGS: There is contrast within the stomach, duodenum and colon from a previous barium examinatio n there is a PEG tube. Its tip projects over the body of the stomach. There is spondylosis deformans present within the spine.. IMPRESSION: THANK YOU PROJECTS OVER THE MID BODY OF THE STOMACH AND INJECTED CONTRAST IS SEEN WITHIN THE FUNDUS A ND ALSO IN THE PROXIMAL JEJUNUM CONFIRMING TUBE POSITIONING.
[2019-08-31 16:27] VITALS: BMI 26.8
[2019-08-31] MEDS: SODIUM CHLORIDE 0.9% 1,000 ML IV SCH ×2 (20:18→20:19)
--- NOTE | 2019-08-31 23:37 | P.CONS ---
History of Present Illness - Reason for Consult Consult date: 08/31/19 Abdominal pain Requesting physician: Raphael Kaufman - Chief Complaint Abdominal pain - History of Present Illness 64-year-old male with a medical history significant for head and neck cancer diagnosed in November 2017 status post previous PEG tube placement. The patient underwent chemoradiation and is currently in clinical remission. He was seen on Sunday due to complaints of oropharyngeal dysphagia and PEG tube malfunction. At that time EGD was attempted however the scope could not be advanced to the upper esophageal sphincter due to stricture formation and PEG tube replacement was performed with an externally placed PEG tube. However after the procedure the patient reported complaints of persistent abdominal pain, nausea and vomiting. The patient contacted the on-call service and was instructed to go to the emergency department for further evaluation. In the ED the patient had computed tomography scan performed with multiple findings including possible malposition PEG tube with balloon in the distal stomach and distention of the proximal stomach suggestive of possible obstruction as well as other findings. Patient was admitted for further evaluation. On questioning he has been having abdominal pain diffusely across his abdomen with associated nausea and vomiting. Laboratory evaluation significant for hemoglobin normal at 13.9, WBC 10, platelet count 245,000, INR 1, total bilirubin 2.2, alkaline phosphatase 230, AST 33 and ALT 19. X-ray with IV contrast with the PEG tube performed after the computed tomography scan describes a PEG tube which was in place. However on evaluation in the patient's room he continues to report abdominal pain, nausea and vomiting. Review of Systems REVIEW OF SYSTEMS: CONSTITUTIONAL: Denies any fevers, chills, weight change or fatigue. CARDIOVASCULAR: Denies any chest pain, palpitations high or low blood pressures RESPIRATORY: Denies any shortness of breath, hemoptysis or cough. GENITOURINARY: No dysuria or hematuria. MUSCULOSKELETAL: No weakness reported. SKIN: Denies any new rashes or lesions, jaundice or pallor. PSYCHIATRIC: Denies any depression or anxiety. NEUROLOGY: Denies headache, denies any new focal deficits. EARS/NOSE/THROAT: No recent hearing change, congestion, nasal discharge or sore throat. EYES: No pain in eyes, discharge or change in vision. GASTROINTESTINAL: As per HPI. Past Medical History Past Medical History: Cancer, Osteoarthritis (OA) Additional Past Medical History / Comment(s): Esophageal cancer with trach, PEG tube x2 years History of Any Multi-Drug Resistant Organisms: None Reported Past Surgical History: Bowel Resection Additional Past Surgical History / Comment(s): Tracheostomy, and PEG tube, colostomy reversed December (2018) Past Anesthesia/Blood Transfusion Reactions: No Reported Reaction Past Psychological History: Anxiety, Depression Smoking Status: Former smoker Past Alcohol Use History: None Reported Additional Past Alcohol Use History / Comment(s): Used to drink quite a bit of beer, quit 2006. Quit smoking 2017 Past Drug Use History: None Reported - Past Family History Father Family Medical History: Cancer Additional Family Medical History / Comment(s): prostate cancer that spread to the brain Mother Family Medical History: Cancer Additional Family Medical History / Comment(s): ovarian cancer Sister(s) Family Medical History: Cancer Additional Family Medical History / Comment(s): breast cancer Medications and Allergies Home Medications Medication Instructions Recorded Confirmed Type ALPRAZolam [Xanax] 0.5 mg PO BID 08/28/19 08/30/19 History PARoxetine HCL [Paxil] 10 mg PO DAILY 08/28/19 08/30/19 History Allergies Allergy/AdvReac Type Severity Reaction Status Date / Time adhesive tape Allergy Rash/Hives Verified 08/30/19 22:01 latex Allergy Rash/Hives Verified 08/30/19 22:01 Physical Exam Vitals: Vital Signs Temp Pulse Pulse Resp BP BP Pulse Ox 08/31/19 08:00 68 16 08/31/19 07:00 97.8 F 68 16 130/73 99 08/31/19 00:35 98.5 F 89 16 130/87 98 08/30/19 22:20 79 18 111/63 97 08/30/19 19:11 98.5 F 87 20 115/75 98 Intake and Output 08/30/19 08/31/19 08/31/19 22:59 06:59 14:59 Other: Voiding Method Toilet Toilet # Voids 0 Weight 75.296 kg 75.296 kg On physical examination, patient appears comfortable in no apparent distress. HEAD: Normocephalic, atraumatic. EYES: No scleral icterus. No conjunctival injection. MOUTH: No lesions, tongue midline. NECK: Trachea midline, no gross abnormalities. CHEST: Clear to auscultation with no wheezing or rhonchi appreciated. HEART: Regular rate and rhythm. ABDOMEN: Soft, PEG tube site intact. Bowel sounds are positive. No organomegaly. No guarding or rigidity. EXTREMITIES: No pedal edema. SKIN: No rashes, no jaundice. NEUROLOGIC: Alert and oriented x3. No focal deficits. Results CBC & Chem 7: 08/31/19 08:40 08/30/19 19:39 Labs: Abnormal Lab Results - Last 24 Hours (Table) 08/30/19 08/30/19 08/30/19 Range/Units 19:39 19:39 19:50 WBC 12.6 H (3.8-10.6) k/uL Neutrophils # 11.2 H (1.3-7.7) k/uL Lymphocytes # 0.5 L (1.0-4.8) k/uL Carbon Dioxide 21 L (22-30) mmol/L Creatinine 0.62 L (0.66-1.25) mg/dL Glucose 146 H (74-99) mg/dL Plasma Lactic Acid Sherman 3.5 H* (0.7-2.0) mmol/L Total Bilirubin 2.2 H (0.2-1.3) mg/dL Alkaline Phosphatase 130 H (38-126) U/L 08/31/19 Range/Units 08:40 WBC (3.8-10.6) k/uL Neutrophils # 8.5 H (1.3-7.7) k/uL Lymphocytes # 0.6 L (1.0-4.8) k/uL Carbon Dioxide (22-30) mmol/L Creatinine (0.66-1.25) mg/dL Glucose (74-99) mg/dL Plasma Lactic Acid Sherman (0.7-2.0) mmol/L Total Bilirubin (0.2-1.3) mg/dL Alkaline Phosphatase (38-126) U/L Assessment and Plan (1) PEG tube malfunction Narrative/Plan: 64-year-old male with history of head and neck cancer diagnosed in 2018 status post chemoradiation currently in remission. Patient suffers from oropharyngeal dysphagia and requires PEG tube feedings for nutrition. Presented for outpatient EGD which was incomplete secondary to proximal esophageal stricture. He underwent external PEG tube replacement. After the procedure the patient had abdominal pain and nausea and vomiting. He was instructed to come to the hospital for further evaluation. He T scan on presentation with multiple findings including distended stomach with possible impaction of the PEG tube balloon in the stomach. This was followed by x-ray of the abdomen with injection of IV dye through the PEG tube which stated that the PEG tube was in place. He was seen in the hospital on the medical floor continuing to report persistent nausea, abdominal pain and vomiting. At this time the patient's had deflation of his PEG to at bedside the PEG tube was then removed and the stomach decompressed. The PEG tube was then reinserted into his stomach and the internal balloon reinflated with 20 mL of saline with the bumper at 4 cm. The patient felt that the abdominal pain was improved at this time. Current Visit: Yes Status: Acute Code(s): K94.23 - GASTROSTOMY MALFUNCTION SNOMED Code(s): 130331280 (2) Dysphagia Current Visit: No Status: Acute Priority: High Code(s): R13.10 - DYSPHAGIA, UNSPECIFIED SNOMED Code(s): 86306693 Plan: Supportive care Nothing by mouth PEG tube was adjusted at bedside Plan is for repeat x-ray of the abdomen in 2 hours after PEG tube readjustments, if the PEG tube appears to be in adequate position okay to restart tube feeds. If patient remains asymptomatic okay for discharge tomorrow Thank you for allowing us to participate in the care of the patient
[2019-09-01] MEDS: SODIUM CHLORIDE 0.9% 1,000 ML IV SCH ×2 (05:39→16:13)
[2019-09-01 07:45] LABS: Basophils % (A) 0 %; Eosinophils # (A) 0.2 k/uL (0-0.7); Eosinophils % (A) 2 %; HCT 42.1 % (39.0-53.0); HGB 13.5 gm/dL (13.0-17.5); Lymphocytes # (A) 0.7 k/uL (1.0-4.8); Lymphocytes % (A) 8 %; MCH 30.2 pg (25.0-35.0); MCV 94.4 fL (80.0-100.0); Mean Platelet Volume 8.4; Monocytes # (A) 0.8 k/uL (0-1.0); Monocytes % (A) 8 %; Neutrophils # (A) 7.8 k/uL (1.3-7.7); Neutrophils % (A) 80 %; Platelet Count 232 k/uL (150-450); RBC 4.46 m/uL (4.30-5.90); RDW 13.4 % (11.5-15.5); WBC 9.8 k/uL (3.8-10.6)
[2019-09-01 07:48] VITALS: RESP 18
[2019-09-01 07:57] LABS: ALT 20 U/L (4-49); AST 30 U/L (17-59); African American GFR (CKD) >90 (>60 ml/min/1.73 sqM); Albumin 3.8 g/dL (3.5-5.0); Alkaline Phosphatase 101 U/L (38-126); Anion Gap 8 mmol/L; Blood Urea Nitrogen 16 mg/dL (9-20); Carbon Dioxide 26 mmol/L (22-30); Chloride 108 mmol/L (98-107); Glucose 97 mg/dL (74-99); Non-African American GFR(CKD) >90 (>60 ml/min/1.73 sqM); Sodium 142 mmol/L (137-145); Total Bilirubin 1.3 mg/dL (0.2-1.3); Total Protein 6.6 g/dL (6.3-8.2)
--- NOTE | 2019-09-01 14:30 | P.DS ---
Providers Date of admission: 08/30/19 23:35 Expected date of discharge: 09/01/19 Attending physician: Raphael Kaufman Consults: 08/30/19 23:34 Consult Physician Routine Consulting Provider: Mich Delgado Consult Reason/Comments: Gi bleed Do you want consulting provider notified?: Yes Primary care physician: Raphael Kaufman [facility] Course: Final diagnoses Abdominal pain with hematemesis, PEG tube malfunction. attempted OP EGD secondary to proximal esophageal stricture and PEG tube replacement . CT reporting malposition PEG tube, status post repositioning. Hemoglobin stable. Dysphagia secondary to the above Esophageal cancer, status post chemoradiation History of perforated ischemic colitis, status post open ileostomy reversal Osteoarthritis Anxiety, depression Former smoker History of alcohol abuse Hospital course: This a 64-year-old gentleman admitted with abdominal pain, accompanied by nausea and vomiting multiple other medical issues. Outpatient patient had undergone EGD incomplete secondary to esophageal stricture as well as PEG tube replacement. Postprocedure continued to have abdominal pain, nausea vomiting. Evaluated by GI. CT reporting malposition PEG tube. PEG tube repositioned, tolerating tube feeds with minimal to no residuals. Significant clinical improvement. Cleared by GI for discharge. Patient is being discharged home in stable condition with guarded prognosis. The impression and plan of care has been dictated as directed. Dr.: I performed a history and examination of this patient, discussed the same with the dictator. I agree with the dictator's note ,documented as a scribe. Any additional findings or plans will be noted. Patient Condition at Discharge: Stable Plan - Discharge Summary Discharge Rx Participant: No New Discharge Prescriptions: Continue PARoxetine HCL [Paxil] 10 mg PO DAILY ALPRAZolam [Xanax] 0.5 mg PO BID Discharge Medication List ALPRAZolam [Xanax] 0.5 mg PO BID 08/28/19 [History] PARoxetine HCL [Paxil] 10 mg PO DAILY 08/28/19 [History] Follow up Appointment(s)/Referral(s): Raphael Kaufman MD [Primary Care Provider] - 09/02/19 9:00 am Activity/Diet/Wound Care/Special Instructions: PEG tube feeding as recommended per GI. Strict aspiration precautions.
[2019-09-01 15:03] VITALS: BP 128/80; PULSE 71; TEMP 98.7
--- NOTE | 2019-09-01 15:41 | PN ---
PROGRESS NOTE DATE OF DICTATION: 09/01/2019 This patient 64-year-old pleasant white male admitted to the hospital for diffuse abdominal pain following PEG tube replacement on Sunday. The patient was seen by Dr. Delgado, and the PEG tube balloon was deflated and reinserted back and the balloon inflated; and after that PEG tube placement was done with a CT of the abdomen showing it to be in good position. The patient was started on tube feeds yesterday and he is doing much better now. He denies any abdominal pain. Overall he is feeling well. Tolerating tube feeds well. No nausea, no vomiting. Abdominal pain has completely resolved. PHYSICAL EXAMINATION: Blood pressure 135/75 pulse rate 79, temperature 98.1. HEENT examination unremarkable. Conjunctivae pink. Sclerae anicteric. Oral cavity no lesions. NECK: No JVD or lymph node enlargement. CHEST: Clear to auscultation. HEART: Regular rate and rhythm. ABDOMEN: Soft. Bowel sounds are positive. No organomegaly. EXTREMITIES: No pedal edema. NEUROLOGIC: Alert and oriented x3. No focal deficits. LABS: Labs from today show WBC 9.8, hemoglobin 13.5, platelets normal. IMPRESSION: 1. Severe abdominal pain post PEG tube placement 3 days ago. PEG tube was readjusted yesterday. The balloon was deflated and re-inserted and inflated again, and now he is doing well. Abdominal pain has resolved. Tube feeds are going; tolerating well. 2. History of head and neck carcinoma diagnosed 2 years ago, status post chemoradiation. RECOMMENDATIONS: 1. Continue tube feeds. 2. He can be discharged home today. 3. Follow up in the office as needed if he has any PEG tube issues. Thank you for this consultation. MMODL / IJN: [id number] /
== END 2019-09-01 16:19 | disposition home or self-care (01) ==
LOC: EC 19:07 → 4SSUR 23:35
PROVIDERS: ADMIT Family Medicine; ATTEND Family Medicine
DX: K94.23 Gastrostomy malfunction (principal); R10.13 Epigastric pain; R10.84 Generalized abdominal pain; K92.0 Hematemesis; K62.5 Hemorrhage of anus and rectum; R13.12 Dysphagia, oropharyngeal phase; E87.2 Acidosis; C15.9 Malignant neoplasm of esophagus, unspecified; M19.90 Unspecified osteoarthritis, unspecified site; F41.9 Anxiety disorder, unspecified; F32.9 Major depressive disorder, single episode, unspecified; F10.11 Alcohol abuse, in remission; K22.2 Esophageal obstruction; Z87.891 Personal history of nicotine dependence; Z03.818 Encounter for observation for suspected exposure to other biological agents ruled out; Z92.21 Personal history of antineoplastic chemotherapy; Z92.3 Personal history of irradiation; Z87.19 Personal history of other diseases of the digestive system; Z98.890 Other specified postprocedural states; Z79.899 Other long term (current) drug therapy; Z91.09 Other allergy status, other than to drugs and biological substances; Z91.040 Latex allergy status; Z90.49 Acquired absence of other specified parts of digestive tract; Z80.42 Family history of malignant neoplasm of prostate; Z80.8 Family history of malignant neoplasm of other organs or systems; Z80.41 Family history of malignant neoplasm of ovary; Z80.3 Family history of malignant neoplasm of breast
CPT/HCPCS: 96376 ×2; 96361 ×2; 96375 ×2; 96374; 99285; 36415; 93005; 86900; 86901; 80053 ×2; 83605; 85025 ×3; 85610; 85730; 86850; 74018 ×2; 74177; 43761; G0378 ×2; U0003; J2270 ×2; J2405 ×2; C9113; Q9967 ×2

== ENCOUNTER → 2019-10-21 | Outpatient (CLI) | payer OTHER ==
[2019-10-21 12:57] LABS: Basophils % (A) 1 %; Eosinophils # (A) 0.4 k/uL (0-0.7); Eosinophils % (A) 6 %; HCT 41.7 % (39.0-53.0); HGB 13.4 gm/dL (13.0-17.5); Lymphocytes # (A) 0.5 k/uL (1.0-4.8); Lymphocytes % (A) 9 %; MCH 30.5 pg (25.0-35.0); MCHC 32.2 g/dL (31.0-37.0); MCV 94.6 fL (80.0-100.0); Mean Platelet Volume 8.2; Monocytes # (A) 0.6 k/uL (0-1.0); Monocytes % (A) 11 %; Neutrophils % (A) 69 %; Platelet Count 213 k/uL (150-450); RBC 4.41 m/uL (4.30-5.90); RDW 14.2 % (11.5-15.5); WBC 5.8 k/uL (3.8-10.6)
[2019-10-21 13:10] LABS: African American GFR (CKD) >90 (>60 ml/min/1.73 sqM); Anion Gap 11 mmol/L; Blood Urea Nitrogen 22 mg/dL (9-20); Calcium 9.7 mg/dL (8.4-10.2); Carbon Dioxide 27 mmol/L (22-30); Chloride 100 mmol/L (98-107); Glucose 88 mg/dL (74-99); Non-African American GFR(CKD) >90 (>60 ml/min/1.73 sqM); Potassium 4.5 mmol/L (3.5-5.1); Sodium 138 mmol/L (137-145)
[2019-10-21 13:14] LABS: Appearance,Urine Clear (Clear); Bilirubin,Urine Negative (Negative); Blood,Urine Negative (Negative); Color,Urine Yellow; Glucose,Urine (UA) Negative (Negative); Ketones,Urine Negative (Negative); Leukocyte Esterase,Urine Negative (Negative); Nitrite,Urine Negative (Negative); PH, Urine 6.5 (5.0-8.0); Protein,Urine Negative (Negative); Specific Gravity,Urine 1.015 (1.001-1.035); Urobilinogen,Urine <2.0 mg/dL (<2.0)
== END | disposition home or self-care (01) ==
LOC: LABPAT 11:07
PROVIDERS: ATTEND Urology
DX: Z01.818 Encounter for other preprocedural examination (principal); N21.0 Calculus in bladder; R35.0 Frequency of micturition
CPT/HCPCS: 36415; 80048; 81003; 85025; 87086

== ENCOUNTER → 2019-10-23 | Outpatient (CLI) | payer OTHER ==
[2019-10-23 07:43] LABS: African American GFR (CKD) >90 (>60 ml/min/1.73 sqM); Blood Urea Nitrogen 21 mg/dL (9-20); Non-African American GFR(CKD) >90 (>60 ml/min/1.73 sqM)
--- NOTE | 2019-10-23 09:57 | CT ---
EXAMINATION TYPE: CT ChestAbdPelvis w con DATE OF EXAM: 10/23/2019 COMPARISON: CT August 30, 2019. PET CT July 25, 2019 and older studies. HISTORY: bone mets, throat CA CT DLP: 1314.6 mGycm. Automated Exposure Control for Dose Reduction was Utilized. CONTRAST: CT scan of the thorax, abdomen and pelvis is performed with IV Contrast, patient injected with 100 mL of Isovue 300. FINDINGS: LUNGS: Mild underlying emphysematous change with scattered peripheral blebs and peripheral reticulati on or fibrosis. No suspicious new pulmonary nodules or masses. No pleural effusion or pneumothorax se en. MEDIASTINUM: There are no new greater than 1 cm hilar or mediastinal lymph nodes. No cardiomegaly o r pericardial effusion is seen. Coronary artery calcification is redemonstrated. Suspect stable left -sided thyroid nodules. OTHER: Small degree of bilateral subareolar gynecomastia redemonstrated. Stable subcentimeter nodular ity left lateral chest wall near axilla measures 32, new slightly more suspicious 8 x 6 mm slightly l arger nodule axial image 35 noted. Stable 6.3 x 2.8 cm right lateral ovoid fatty lesion near the thor acoabdominal junction axial image 54 favored benign lesion, some strandy soft tissue densities remain present. Atypical Lipomatous Tumor Is Possible. This Area Should Be Followed Clinically To Ensure S tability. If Any Growth Is Noted, The Patient Can Be Referred To Orthopedic Oncology As A Low-Grade L iposarcoma Would Then Be In The Differential. No significant interval change noted. LIVER/GB: No significant abnormality is appreciated. PANCREAS: No significant abnormality is seen. SPLEEN: No significant abnormality is seen. ADRENALS: No significant abnormality is seen. KIDNEYS: Persistent large dependent 2.8 cm calculus in the bladder. BOWEL: PEG tube redemonstrated. Oral contrast reaches level of rectum. No suspicious small or large b owel dilatation. Surgical changes from right-sided partial colectomy redemonstrated. GENITAL ORGANS: Calcification of vas deferens bilaterally redemonstrated. LYMPH NODES: No greater than 1cm abdominal or pelvic lymph nodes are appreciated. OSSEOUS STRUCTURES: Multilevel spurring in the spine redemonstrated. No obvious new suspicious focal lytic or sclerotic lesions. Persistent sclerosis right acetabulum coronal image 56 and sclerotic lesi on near junction left T9 transverse process and posterior rib coronal image 71. OTHER: No significant additional abnormality is seen. IMPRESSION: Stable Osseous metastatic disease seen better on PET/CT. No new suspicious mass or adenop athy identified to suggest neoplastic progression
--- NOTE | 2019-10-23 10:03 | CT ---
EXAMINATION TYPE: CT soft tissue neck w con DATE OF EXAM: 10/23/2019 HISTORY: bone mets, throat CA COMPARISON: CT neck March 28, 2018 and older studies. PET/CT July 25, [address] DLP: 332.4 mGycm. Automated Exposure Control for Dose Reduction was Utilized. TECHNIQUE: CT scan of the neck is performed with IV Contrast, patient injected with 100 mL of Isovue 300, axial images are obtained, coronal and sagittal reformatted images are reviewed. FINDINGS: Airway: Persistent patent nasopharyngeal and oropharyngeal airway. Some prevertebral soft tissue thic kening near C2-C3 level is unchanged from most recent PET/CT. Stable left-sided thyroid nodule axial image 26. Parotid/submandibular glands: Stable some mild to moderate generalized atrophy of the bilateral subma ndibular glands. Stable mild adjacent fat stranding presumed posttreatment change. Carotid/Vascular Structures: No significant abnormality seen. Osseous Structures: Multilevel spurring in the spine redemonstrated. Other: No obvious new suspicious greater than 1 cm enlarging neck adenopathy. Stable few small scatte red tiny submandibular lymph nodes. IMPRESSION: No obvious new mass or adenopathy to suggest local active neoplastic recurrence.
== END | disposition home or self-care (01) ==
LOC: RADCTMAIN 06:53
PROVIDERS: ATTEND Internal Medicine Hematology & Oncology
DX: C79.51 Secondary malignant neoplasm of bone (principal); C76.0 Malignant neoplasm of head, face and neck
CPT/HCPCS: 82565; 84520; 70491; 71260; 74177; 36415; Q9967

== ENCOUNTER 2019-10-27 05:42 | Day surgery (SDC) | payer OTHER ==
[2019-10-22 12:55] VITALS: BMI 26.8
--- NOTE | 2019-10-26 20:11 | P.HPIHPCON ---
History of Present Illness H&P Date: 10/27/19 Mr Dotson is 64 yo male with hx of 2.8 cm calculi in the bladder. Option of cystolithotimy vs cystolithalopaxy were discussed with him. Discussed risk and benefit of each for each approach. He agreed to proceed with cystolithalopaxy. Discussed the risk which includes bleeding, infection and bladder perforation. Also discussed risk from anesthesia. He understood all risks and agreed to proceed Consent for Procedure: I have explained the operation/procedure to the patient, including the risks, benefits, side effects, alternative therapies (including not receiving the proposed treatment or service), the likelihood of the patient achieving his/her goals, and potential recuperation problems for the procedure/sedation/analgesia, as well as any blood products, if indicated. I also explained to the patient the risks, benefits and side effects of the alternatives, as well as the risks related to not receiving the proposed procedure, care, treatment, or services. Past Medical History Past Medical History: Cancer, Osteoarthritis (OA) Additional Past Medical History / Comment(s): Esophageal cancer, PEG tube x2 years, bladder stone, hx bowel rupture History of Any Multi-Drug Resistant Organisms: None Reported Past Surgical History: Bowel Resection Additional Past Surgical History / Comment(s): hx Tracheostomy, and PEG tube- last insterted 08/2019, iliostomy/later reversed December) Past Anesthesia/Blood Transfusion Reactions: Motion Sickness Smoking Status: Former smoker - Past Family History Father Family Medical History: Cancer Additional Family Medical History / Comment(s): prostate cancer that spread to the brain Mother Family Medical History: Cancer Additional Family Medical History / Comment(s): ovarian cancer Sister(s) Family Medical History: Cancer Additional Family Medical History / Comment(s): breast cancer Medications and Allergies Home Medications Medication Instructions Recorded Confirmed Type ALPRAZolam [Xanax] 0.5 mg PO BID 08/28/19 10/22/19 History PARoxetine HCL [Paxil] 10 mg PO HS 08/28/19 10/22/19 History Tamsulosin HCl [Flomax] 0.4 mg PO QAM 10/22/19 10/22/19 History Allergies Allergy/AdvReac Type Severity Reaction Status Date / Time adhesive tape Allergy Rash/Hives Verified 10/22/19 12:46 latex Allergy Rash/Hives Verified 10/22/19 12:46 Surgical - Exam - General well developed, well nourished, no distress, no pain - Eyes PERRL, normal ocular movement - Respiratory normal expansion, normal respiratory effort - Abdomen Abdomen: soft, non tender - Psychiatric oriented to time, oriented to person, oriented to place Assessment and Plan Assessment: 64 yo male with 2.8 cm bladder stone -OR for Cystolithalopaxy
[2019-10-27] MEDS ORDERED: HYDROmorphone 0.5 MG/0.5 ML SYRINGE IVP PRN (05:59)
[2019-10-27] MEDS ORDERED: LACTATED RINGERS 1,000 ML IV SCH (05:59)
[2019-10-27] MEDS ORDERED: ONDANSETRON 4 MG/2 ML VIAL IVP ONE (05:59)
[2019-10-27] MEDS ORDERED: DEXAMETHASONE SOD PHOSPHATE 10 MG/ML 1 ML VIAL IV ONE (05:59)
[2019-10-27] MEDS ORDERED: LIDOCAINE 1% (10MG/ML) FOR IV START INTRADERMA ONE (06:35)
[2019-10-27] MEDS ORDERED: DEXAMETHASONE SOD PHOSPHATE 10 MG/ML 1 ML VIAL ONE (07:09)
[2019-10-27] MEDS ORDERED: PROPOFOL 10 MG/ML 20 ML VIAL IV ONE (07:09)
[2019-10-27] MEDS ORDERED: PHENYLEPHRINE-0.9% NACL SYG 1 MG/10 ML SYRINGE ONE (07:09)
[2019-10-27] MEDS ORDERED: fentaNYL (PF) 50 MCG/ML 2 ML AMP ONE (07:09)
[2019-10-27] MEDS ORDERED: LIDOCAINE 1% INJ 10MG/ML (20 ML MDV) ONE (07:09)
[2019-10-27] MEDS ORDERED: SUCCINYLCHOLINE CHLORIDE 100 MG/5 ML SYR IV ONE (07:09)
[2019-10-27] MEDS ORDERED: ePHEDrine SULFATE/0.9% NACL/PF 50 MG/5 ML SYRINGE IV ONE (07:09)
[2019-10-27] MEDS ORDERED: MIDAZOLAM 2 MG/2 ML VIAL ONE (07:09)
[2019-10-27] MEDS ORDERED: LACTATED RINGERS 1,000 ML IV ONE (08:08)
--- NOTE | 2019-10-27 08:10 | P.OP ---
Date of Procedure: 10/27/19 Preoperative Diagnosis: Bladder stone Postoperative Diagnosis: Same Procedure(s) Performed: Cystolitholapaxy Implants: None Anesthesia: BLAINE Surgeon: Russ Ogden Estimated Blood Loss (ml): 10 Pathology: other (Bladder stone) Condition: stable Disposition: PACU Indications for Procedure: Mr Dotson is 64 yo male with hx of 2.8 cm calculi in the bladder. Option of cystolithotimy vs cystolithalopaxy were discussed with him. Discussed risk and benefit of each for each approach. He agreed to proceed with cystolithalopaxy. Discussed the risk which includes bleeding, infection and bladder perforation. Also discussed risk from anesthesia. He understood all risks and agreed to proceed Operative Findings: Large bladder stone Description of Procedure: Patient was brought to the operating room, general anesthesia was induced. He was prepped and draped in sterile fashion a placement dorsal lithotomy position. Cystoscopy fitted with a 25 sheath was inserted per urethra. Cystoscopy was performed which showed no abnormality within the bladder but it did show a large bladder stone. At this time attention was carried to the bladder stone which was fragmented using the holmium laser. Stone fragments were removed using the Dian evacuator. Repeat cystoscopy showed no sizable fragments or injury to the bladder. A 20-Maltese catheter was left in place with return of clear urine. The patient tolerated the procedure well was taken to PACU in stable condition
[2019-10-27 08:37] VITALS: TEMP 97.1
[2019-10-27 08:45] VITALS: RESP 16
[2019-10-27 11:03] VITALS: BP 118/74; PULSE 72
== END 2019-10-27 11:07 | disposition home or self-care (01) ==
LOC: OR 05:42
PROVIDERS: ATTEND Urology
DX: N21.0 Calculus in bladder (principal); Z91.040 Latex allergy status; Z91.048 Other nonmedicinal substance allergy status; Z79.899 Other long term (current) drug therapy; Z85.01 Personal history of malignant neoplasm of esophagus; M19.90 Unspecified osteoarthritis, unspecified site; Z90.49 Acquired absence of other specified parts of digestive tract; Z87.891 Personal history of nicotine dependence; Z80.42 Family history of malignant neoplasm of prostate; Z80.8 Family history of malignant neoplasm of other organs or systems; Z80.41 Family history of malignant neoplasm of ovary; Z80.3 Family history of malignant neoplasm of breast
CPT/HCPCS: 82365; 52318; C1758; J2250; J1100; J0690; J2405; J2001; J3010; J2370; J0330; J2704

== ENCOUNTER → 2020-01-27 | Outpatient (CLI) | payer MEDICARE, OTHER ==
[2020-01-27 13:14] LABS: African American GFR (CKD) >90 (>60 ml/min/1.73 sqM); Blood Urea Nitrogen 20 mg/dL (9-20); Non-African American GFR(CKD) >90 (>60 ml/min/1.73 sqM)
--- NOTE | 2020-01-28 09:15 | CT ---
EXAMINATION TYPE: CT soft tissue neck w con DATE OF EXAM: 01/27/2020 HISTORY: F/U for esophageal CA COMPARISON: CT neck October 23, 2019 and older CTs. Most recent PET CT July 25, 2019 and older PET [address]s. CT DLP: 693.03 mGycm. Automated Exposure Control for Dose Reduction was Utilized. TECHNIQUE: CT scan of the neck is performed with IV Contrast, patient injected with 100 mL of Isovue 300, axial images are obtained, coronal and sagittal reformatted images are reviewed. FINDINGS: Airway: Patent nasopharyngeal and oropharyngeal airway redemonstrated. Stable prevertebral soft tissu e thickening C2 and C3 level from most recent CT. Recent upper gauze and vallecula remains within nor mal limits. Stable greater than 1 cm posterior lower pole left thyroid nodule. Abnormal thickening of the hypopharyngeal airway at level of vocal cords sagittal image 57 is less prominent than most rece nt CT at level of aryepiglottic folds. Parotid/submandibular glands: Stable mild/moderate generalized atrophy of bilateral submandibular gla nds. Parotid glands remain symmetric and within normal limits. Carotid/Vascular Structures: No significant abnormality is seen. Larger caliber left vertebral artery redemonstrated. Osseous Structures: Moderate multilevel spurring of cervical spine redemonstrated. Other: Mild fat stranding over the submental region inferior to mandible remains present. No obvious new greater than 1 cm neck adenopathy. No definitive enlarging lymph nodes. IMPRESSION: No obvious new mass or adenopathy to suggest local active neoplastic recurrence.
--- NOTE | 2020-01-28 09:38 | CT ---
EXAMINATION TYPE: CT ChestAbdPelvis w con DATE OF EXAM: 01/27/2020 COMPARISON: CT October 23, 2019 and older studies. HISTORY: F/U for esophageal CA CT DLP: 1484.97 mGycm. Automated Exposure Control for Dose Reduction was Utilized. CONTRAST: CT scan of the thorax, abdomen and pelvis is performed with oral and with IV Contrast, patient inject ed with 100 mL of Isovue 300. FINDINGS: LUNGS: Mild to moderate underlying emphysematous change with scattered peripheral blebs and periphera l reticulation or fibrosis is redemonstrated and slightly more prominent from most recent CT. No susp icious new or enlarging pulmonary nodules or masses. Is 5 x 3 mm posterior right upper lung nodule or scar like opacity axial image 16 unchanged from most recent study. No pleural effusion or pneumothor ax seen. MEDIASTINUM: There are no new greater than 1 cm hilar or mediastinal lymph nodes. No cardiomegaly o r pericardial effusion is seen. Coronary artery calcification is redemonstrated. Left-sided thyroid nodules are redemonstrated. OTHER: Small degree of bilateral subareolar gynecomastia redemonstrated. Stable subcentimeter nodular ity left lateral chest wall near axilla axial image 20 and stable 8 x 6 mm slightly larger nodule axi al image 25 inferiorly noted. Right lateral ovoid fatty lesion near the thoracoabdominal junction axial image 50 on the current goldy dy is only partially imaged on this study. LIVER/GB: Contracted gallbladder on current study. PANCREAS: No significant abnormality is seen. SPLEEN: No significant abnormality is seen. ADRENALS: No significant abnormality is seen. KIDNEYS: Symmetric cortical medullary uptake and excretion without concerning renal mass or hydroneph rosis seen bilaterally. Presumed interval successful treatment of the prior visualized 2.8 cm calculu s in the bladder which is not clearly seen currently. BOWEL: PEG tube redemonstrated. Oral contrast reaches level of rectum. No suspicious small or large b owel dilatation. Surgical changes from right-sided partial colectomy and bowel anastomosis redemonstr ated. Occasional distal colonic diverticula redemonstrated. GENITAL ORGANS: Prominent Calcification of vas deferens bilaterally redemonstrated. Stable prostate g land measures upper limits of normal in size bulging on bladder base. LYMPH NODES: No greater than 1cm abdominal or pelvic lymph nodes are appreciated. OSSEOUS STRUCTURES: Multilevel spurring in the spine redemonstrated. No obvious new suspicious focal lytic or sclerotic lesions. Persistent sclerosis right acetabulum coronal image 75 current study and sclerotic lesion near junction left T9 transverse process and posterior rib coronal image 91 current study. Increasing sclerosis superior sternum coronal image 35 and axial image 23 is noted. OTHER: Mild/moderate calcified plaque of the aorta extends into branch vessels. 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 Otherwise no significan t interval change from most recent CT.
== END | disposition home or self-care (01) ==
LOC: RADCTMAIN 12:34
PROVIDERS: ATTEND Internal Medicine Hematology & Oncology
DX: Z03.89 Encounter for observation for other suspected diseases and conditions ruled out (principal); C76.0 Malignant neoplasm of head, face and neck
CPT/HCPCS: 82565; 84520; 70491; 71260; 74177; 36415; Q9967

== ENCOUNTER 2020-02-16 14:25 | Inpatient (IN) | payer MEDICARE, OTHER ==
[2020-02-16] MEDS ORDERED: SODIUM CHLORIDE 0.9% 1,000 ML IV STA (16:29)
[2020-02-16] MEDS ORDERED: ACETAMINOPHEN TAB 500 MG TAB PEG/G-TUBE STA (16:29)
--- NOTE | 2020-02-16 17:21 | ED ---
General Adult HPI - General Chief complaint: Neck Pain/Injury Stated complaint: Neck Pain/Blurry Vision Time Seen by Provider: 02/16/20 16:19 Source: patient, RN notes reviewed Mode of arrival: ambulatory Limitations: no limitations, language barrier - History of Present Illness Initial comments: This a 65-year-old male presents emergency Department with chief complaint of left-sided intermittent blurred vision, neck discomfort. Patient states is dull headache. Patient states she just does not feel well. He does admit that he has a history of throat cancer treatment with radiation and chemotherapy states he sees Dr. henriquez states he had no prior surgery he does not eat or drink orally states that he has a PEG tube. Patient noted have a fever on triage though he has no complaints of this denies cough congestion shortness breath abdominal pain nausea and diarrhea constipation no sick contacts. Patient states she's been having symptoms since [place] - Related Data Home Medications Medication Instructions Recorded Confirmed ALPRAZolam [Xanax] 0.5 mg PO BID 08/28/19 10/22/19 PARoxetine HCL [Paxil] 10 mg PO HS 08/28/19 10/22/19 Tamsulosin HCl [Flomax] 0.4 mg PO QAM 10/22/19 10/22/19 Nivolumab [Opdivo] 100 mg IV QMONTHLY 10/27/19 10/27/19 Previous Rx's Medication Instructions Recorded Cephalexin [Keflex] 500 mg PO Q8HR #15 cap 10/27/19 Ibuprofen 600 mg PO Q8H PRN #20 tab 10/27/19 Allergies Allergy/AdvReac Type Severity Reaction Status Date / Time adhesive tape Allergy Rash/Hives Verified 02/16/20 14:34 latex Allergy Rash/Hives Verified 02/16/20 14:34 Review of Systems ROS Statement: Those systems with pertinent positive or pertinent negative responses have been documented in the HPI. ROS Other: All systems not noted in ROS Statement are negative. Past Medical History Past Medical History: Cancer, Osteoarthritis (OA) Additional Past Medical History / Comment(s): Esophageal cancer with trach, PEG tube x2 years History of Any Multi-Drug Resistant Organisms: None Reported Past Surgical History: Bowel Resection Additional Past Surgical History / Comment(s): Tracheostomy, and PEG tube, colostomy reversed December (2018) Past Anesthesia/Blood Transfusion Reactions: No Reported Reaction Past Psychological History: Anxiety, Depression Smoking Status: Former smoker Past Alcohol Use History: None Reported Past Drug Use History: None Reported - Past Family History Father Family Medical History: Cancer Additional Family Medical History / Comment(s): prostate cancer that spread to the brain Mother Family Medical History: Cancer Additional Family Medical History / Comment(s): ovarian cancer Sister(s) Family Medical History: Cancer Additional Family Medical History / Comment(s): breast cancer General Exam Limitations: no limitations General appearance: alert, in no apparent distress Head exam: Present: atraumatic, normocephalic, normal inspection Eye exam: Present: normal appearance, PERRL, EOMI. Absent: scleral icterus, conjunctival injection, periorbital swelling ENT exam: Present: mucous membranes moist, TM's normal bilaterally. Absent: normal exam, normal oropharynx Neck exam: Present: tenderness, full ROM, other (No vertebral tenderness over reported area of pain). Absent: normal inspection (Enlargement of the submandibular space and anterior neck), meningismus, lymphadenopathy Respiratory exam: Present: normal lung sounds bilaterally. Absent: respiratory distress, wheezes, rales, rhonchi, stridor Cardiovascular Exam: Present: normal rhythm, tachycardia, normal heart sounds. Absent: systolic murmur, diastolic murmur, rubs, gallop, clicks GI/Abdominal exam: Present: soft, normal bowel sounds, other (PEG tube noted). Absent: distended, tenderness, guarding, rebound, rigid Back exam: Absent: CVA tenderness (R), CVA tenderness (L) Neurological exam: Present: alert, oriented X3, CN II-XII intact, reflexes normal, other (Finger to nose intact bilaterally without over shooting). Absent: motor sensory deficit Course Vital Signs 02/16/20 02/16/20 02/16/20 14:31 17:09 18:00 Temperature 102.0 F H 100.9 F H 98.8 F Pulse Rate 112 H 104 H 99 Respiratory 18 18 18 Rate Blood Pressure 134/79 122/76 111/62 O2 Sat by Pulse 98 98 97 Oximetry Medical Decision Making - Medical Decision Making Patient CT does not reveal an acute abnormality. Patient had persistent symptoms for over 10 days. Patient does have a noted fever on and immunologic' s. Patient will be admitted for blood cultures, started on IV antibiotics patient's PCP was contacted, oncology with consult to neurology. - Lab Data Result diagrams: 02/16/20 17:05 02/16/20 17:05 Lab Results 02/16/20 02/16/20 02/16/20 Range/Units 17:05 17:05 17:05 WBC 3.8 (3.8-10.6) k/uL RBC 4.09 L (4.30-5.90) m/uL Hgb 13.3 (13.0-17.5) gm/dL Hct 37.9 L (39.0-53.0) % MCV 92.6 (80.0-100.0) fL MCH 32.5 (25.0-35.0) pg MCHC 35.1 (31.0-37.0) g/dL RDW 13.2 (11.5-15.5) % Plt Count 192 (150-450) k/uL MPV 7.8 Neutrophils % 84 % Lymphocytes % 5 % Monocytes % 7 % Eosinophils % 2 % Basophils % 1 % Neutrophils # 3.2 (1.3-7.7) k/uL Lymphocytes # 0.2 L (1.0-4.8) k/uL Monocytes # 0.3 (0-1.0) k/uL Eosinophils # 0.1 (0-0.7) k/uL Basophils # 0.0 (0-0.2) k/uL Sodium 136 L (137-145) mmol/L Potassium 4.1 (3.5-5.1) mmol/L Chloride 100 (98-107) mmol/L Carbon Dioxide 26 (22-30) mmol/L Anion Gap 10 mmol/L BUN 22 H (9-20) mg/dL Creatinine 0.67 (0.66-1.25) mg/dL Est GFR (CKD-EPI)AfAm >90 (>60 ml/min/1.73 sqM) Est GFR (CKD-EPI)NonAf >90 (>60 ml/min/1.73 sqM) Glucose 89 (74-99) mg/dL Plasma Lactic Acid Sherman 2.3 H* (0.7-2.0) mmol/L Calcium 8.9 (8.4-10.2) mg/dL Total Bilirubin 0.7 (0.2-1.3) mg/dL AST 91 H (17-59) U/L ALT 103 H (4-49) U/L Alkaline Phosphatase 98 (38-126) U/L Total Protein 7.2 (6.3-8.2) g/dL Albumin 4.0 (3.5-5.0) g/dL Urine Color Urine Appearance (Clear) Urine pH (5.0-8.0) Ur Specific Luther (1.001-1.035) Urine Protein (Negative) Urine Glucose (UA) (Negative) Urine Ketones (Negative) Urine Blood (Negative) Urine Nitrite (Negative) Urine Bilirubin (Negative) Urine Urobilinogen (<2.0) mg/dL Ur Leukocyte Esterase (Negative) Amorphous Sediment (None) /hpf Coronavirus (PCR) (Not Detectd) 02/16/20 02/16/20 Range/Units 17:05 17:44 WBC (3.8-10.6) k/uL RBC (4.30-5.90) m/uL Hgb (13.0-17.5) gm/dL Hct (39.0-53.0) % MCV (80.0-100.0) fL MCH (25.0-35.0) pg MCHC (31.0-37.0) g/dL RDW (11.5-15.5) % Plt Count (150-450) k/uL MPV Neutrophils % % Lymphocytes % % Monocytes % % Eosinophils % % Basophils % % Neutrophils # (1.3-7.7) k/uL Lymphocytes # (1.0-4.8) k/uL Monocytes # (0-1.0) k/uL Eosinophils # (0-0.7) k/uL Basophils # (0-0.2) k/uL Sodium (137-145) mmol/L Potassium (3.5-5.1) mmol/L Chloride (98-107) mmol/L Carbon Dioxide (22-30) mmol/L Anion Gap mmol/L BUN (9-20) mg/dL Creatinine (0.66-1.25) mg/dL Est GFR (CKD-EPI)AfAm (>60 ml/min/1.73 sqM) Est GFR (CKD-EPI)NonAf (>60 ml/min/1.73 sqM) Glucose (74-99) mg/dL Plasma Lactic Acid Sherman (0.7-2.0) mmol/L Calcium (8.4-10.2) mg/dL Total Bilirubin (0.2-1.3) mg/dL AST (17-59) U/L ALT (4-49) U/L Alkaline Phosphatase (38-126) U/L Total Protein (6.3-8.2) g/dL Albumin (3.5-5.0) g/dL Urine Color Yellow Urine Appearance Turbid (Clear) Urine pH 8.0 (5.0-8.0) Ur Specific Luther 1.020 (1.001-1.035) Urine Protein 1+ H (Negative) Urine Glucose (UA) Negative (Negative) Urine Ketones Negative (Negative) Urine Blood Negative (Negative) Urine Nitrite Negative (Negative) Urine Bilirubin Negative (Negative) Urine Urobilinogen 2.0 (<2.0) mg/dL Ur Leukocyte Esterase Negative (Negative) Amorphous Sediment Occasional H (None) /hpf Coronavirus (PCR) Not Detected (Not Detectd) Disposition Clinical Impression: Fever, unknown origin, Immunocompromised, Blurred vision, left eye, Cervical pain, Esophageal cancer Disposition: ADMITTED IP TO THIS [facility] Condition: Serious Referrals: Raphael Kaufman MD [Primary Care Provider] - 1-2 days
[2020-02-16 17:27] LABS: Basophils % (A) 1 %; Eosinophils # (A) 0.1 k/uL (0-0.7); Eosinophils % (A) 2 %; HCT 37.9 % (39.0-53.0); HGB 13.3 gm/dL (13.0-17.5); Lymphocytes # (A) 0.2 k/uL (1.0-4.8); Lymphocytes % (A) 5 %; MCH 32.5 pg (25.0-35.0); MCHC 35.1 g/dL (31.0-37.0); MCV 92.6 fL (80.0-100.0); Mean Platelet Volume 7.8; Monocytes # (A) 0.3 k/uL (0-1.0); Monocytes % (A) 7 %; Neutrophils # (A) 3.2 k/uL (1.3-7.7); Neutrophils % (A) 84 %; Platelet Count 192 k/uL (150-450); RBC 4.09 m/uL (4.30-5.90); RDW 13.2 % (11.5-15.5); WBC 3.8 k/uL (3.8-10.6)
[2020-02-16 17:38] LABS: ALT 103 U/L (4-49); AST 91 U/L (17-59); African American GFR (CKD) >90 (>60 ml/min/1.73 sqM); Alkaline Phosphatase 98 U/L (38-126); Anion Gap 10 mmol/L; Blood Urea Nitrogen 22 mg/dL (9-20); Calcium 8.9 mg/dL (8.4-10.2); Carbon Dioxide 26 mmol/L (22-30); Chloride 100 mmol/L (98-107); Glucose 89 mg/dL (74-99); Non-African American GFR(CKD) >90 (>60 ml/min/1.73 sqM); Potassium 4.1 mmol/L (3.5-5.1); Sodium 136 mmol/L (137-145); Total Bilirubin 0.7 mg/dL (0.2-1.3); Total Protein 7.2 g/dL (6.3-8.2)
--- NOTE | 2020-02-16 17:38 | XR ---
EXAMINATION TYPE: XR chest 2V DATE OF EXAM: 02/16/2020 COMPARISON: 07/15/2018 HISTORY: Fever TECHNIQUE: 2 views FINDINGS: There is some coarsening of interstitial markings. Heart size is normal. There are no hilar masses. There is mild pleural thickening right lung apex. There is no evidence of mediastinal adenop athy. IMPRESSION: Mild pulmonary fibrotic changes. Increased interstitial density in the lower lobes compar ed to old exam. No heart failure seen.
--- NOTE | 2020-02-16 17:42 | CT ---
EXAMINATION TYPE: CT brain ash wo con DATE OF EXAM: 02/16/2020 COMPARISON: None HISTORY: Neck pain and left eye blurriness x 10 days. History of throat cancer. CT DLP: 1394 mGycm Automated exposure control for dose reduction was used. There is cerebral cortical atrophy. There is no mass effect nor midline shift. There is no sign of in tracranial hemorrhage. There is no evidence of cerebral edema. Calvarium is intact. There is no evide nce of orbital mass. Skull base is intact. There is normal aeration of the mastoid sinuses. Cervical vertebra have normal alignment. There is degenerative mild spur formation of the endplates t hroughout the cervical spine. There is no compression fracture. Facet joints are intact. IMPRESSION: Mild cervical multilevel spondylotic changes. No fracture. Cerebral atrophy. No acute intracranial abnormality.
[2020-02-16 18:21] LABS: Amorphous Sediment,Urine Occasional /hpf; Appearance,Urine Turbid (Clear); Bilirubin,Urine Negative (Negative); Blood,Urine Negative (Negative); Color,Urine Yellow; Glucose,Urine (UA) Negative (Negative); Ketones,Urine Negative (Negative); Leukocyte Esterase,Urine Negative (Negative); Nitrite,Urine Negative (Negative); Protein,Urine 1+ (Negative)
[2020-02-16] MEDS ORDERED: CEFEPIME 2 GM in SODIUM CHLORIDE 0.9% 100 ML IVPB STA (18:45)
[2020-02-16] MEDS ORDERED: ONDANSETRON 4 MG/2 ML VIAL IVP PRN (18:48)
[2020-02-16] MEDS ORDERED: NALOXONE 0.4 MG/ML 1 ML VIAL IV PRN (18:48)
[2020-02-16] MEDS ORDERED: NIVOLUMAB 100 MG/10 ML IV SCH (20:15)
[2020-02-16] MEDS ORDERED: VANCOMYCIN IV PER PHARMACY 1 EACH MISC MISCELLANE PRN (20:17)
[2020-02-16] MEDS ORDERED: VANCOMYCIN 1,500 MG in SODIUM CHLORIDE 0.9% 250 ML IVPB ONE (21:00)
--- NOTE | 2020-02-16 21:02 | CT ---
EXAMINATION TYPE: CT chest wo con DATE OF EXAM: 02/16/2020 COMPARISON: 01/27/2020 HISTORY: Fever w/ unknow origin, immunocompromised CT DLP: 327 mGycm Automated exposure control for dose reduction was used. Images were obtained from the thoracic inlet to the diaphragm with no contrast. There is some reticular infiltrate and pleural thickening at the right lung apex. There is minimal pu lmonary emphysema. There is mild subpleural interstitial reticular density in the medial left lower l obe. There is similar change in the posterior right midlung field in the superior segment right lower lobe. There is no suspicious pulmonary mass. There is no pleural effusion. Heart size is normal. The re is no pericardial effusion. Upper abdominal soft tissues appear intact. There is gastrostomy tube noted. There is coronary artery calcification. There is no mediastinal adenopathy. There are no hilar masses . There is degenerative spurring in the lower thoracic spine. Sternum is intact. There is no compressio n fracture. IMPRESSION: Bilateral minimal pulmonary changes consistent with some interstitial fibrosis. Minimal emphysema. No adverse change compared to old exam.
[2020-02-16] MEDS: ALPRAZolam 0.5 MG TAB PEG/G-TUBE SCH (21:57)
[2020-02-16] MEDS: PARoxetine 10 MG TAB PEG/G-TUBE SCH (21:57)
[2020-02-16] MEDS: ACETAMINOPHEN TAB 325 MG TAB PEG/G-TUBE PRN (21:57)
--- NOTE | 2020-02-16 22:49 | HP ---
HISTORY AND PHYSICAL 65-year-old white male came to the emergency room with left-sided intermittent blurred vision, neck discomfort and dull headache. Did not feel well. Fever of 102. Recently had throat cancer treatment with radiation chemotherapy. He does not eat or drink, uses a PEG tube. He denies cough, congestion, shortness of breath. A chest x-ray did come back for worsening pneumonia, possibly infiltrates for which CT scan will be ordered tonight. Temperature in the ER is 102 degrees Fahrenheit. Home medicines: Xanax 0.5 b.i.d., Paxil 10 mg daily, Flomax 0.4 daily, Optiva 100 mg IV monthly, DVTs, Keflex 500 q.8 hours, ibuprofen 600 q.8 hours. ALLERGIES: ADHESIVE AND LATEX. 14-point review of systems otherwise negative. PAST MEDICAL HISTORY: Throat cancer, osteoarthritis, esophageal cancer with trach, PEG tube x 2 years, bowel resection, history of anxiety, depression. SOCIAL HISTORY: Former smoker. No alcohol. No drugs. FAMILY HISTORY: Father with cancer of the prostate going to the brain. Mother with cancer ovaries, history of cancer of the breast. PHYSICAL EXAMINATION: T-max is a 102 degrees Fahrenheit, temp now is 98, pulse 99-112, respiratory rate 18- 20, blood pressure is 111 to 130s over 60s to 70s. O2 97 to 98 on room air. Heart is tachycardic. No murmurs, rubs, gallops. GI is soft. PEG tube noted. Abdomen CVA tenderness. Neck is supple. No mass. Pupils equal, round, reactive. External ear canals within normal limits. Neck is supple. Neurologic: Cranial nerves intact. CT of the head and neck were normal. Blood cultures, IV antibiotics, vanc and cefepime will be ordered. Possible worsening of a pneumonia. As abnormal chest x-ray, we will order CT scan tonite. He has lactic acidosis secondary to dehydration, possible infection. Fever unknown origin, immunocompromised. Blurred vision, left eye. Rule out CVA/TIA. Neurology has been consult as well as Infectious Disease. MMODL / IJN: [id number] /
[2020-02-16] MEDS: PANTOPRAZOLE SODIUM 40 MG GRANULE PKT PEG/G-TUBE SCH (23:39)
[2020-02-17] MEDS: VANCOMYCIN 1,500 MG in SODIUM CHLORIDE 0.9% 250 ML IVPB SCH ×3 (04:45→20:14)
[2020-02-17] MEDS: CEFEPIME 2 GM in SODIUM CHLORIDE 0.9% 100 ML IVPB SCH ×2 (06:31→18:35)
[2020-02-17 06:33] LABS: Basophils % (A) 0 %; Eosinophils # (A) 0.1 k/uL (0-0.7); Eosinophils % (A) 2 %; HCT 35.6 % (39.0-53.0); HGB 12.2 gm/dL (13.0-17.5); Lymphocytes # (A) 0.3 k/uL (1.0-4.8); Lymphocytes % (A) 8 %; MCH 32.4 pg (25.0-35.0); MCHC 34.1 g/dL (31.0-37.0); Mean Platelet Volume 7.5; Monocytes # (A) 0.3 k/uL (0-1.0); Monocytes % (A) 8 %; Neutrophils # (A) 3.2 k/uL (1.3-7.7); Neutrophils % (A) 80 %; Platelet Count 177 k/uL (150-450); RBC 3.75 m/uL (4.30-5.90); RDW 13.4 % (11.5-15.5); WBC 4.1 k/uL (3.8-10.6)
[2020-02-17] MEDS ORDERED: VANCOMYCIN 1,750 MG in SODIUM CHLORIDE 0.9% 500 ML 500 ML IVPB SCH (08:00)
[2020-02-17] MEDS: TAMSULOSIN 0.4 MG CAP.ER.24H PO SCH (09:00)
[2020-02-17] MEDS: ALPRAZolam 0.5 MG TAB PEG/G-TUBE SCH ×2 (09:00→20:15)
[2020-02-17] MEDS: PANTOPRAZOLE SODIUM 40 MG GRANULE PKT PEG/G-TUBE SCH (09:00)
[2020-02-17 09:56] LABS: African American GFR (CKD) 114.8 (60.0-200.0); Albumin 3.8 g/dL (3.80-4.90); Albumin/Globulin Ratio 1.81 (1.60-3.17); Anion Gap 5.8 mmol/L (4.00-12.00); BUN/Creat Ratio 27.14 Ratio (12.00-20.00); Calcium 8.7 mg/dL (8.7-10.3); Carbon Dioxide 27.2 mmol/L (21.6-31.8); Globulin 2.1 g/dL (1.6-3.3); Potassium 4.6 mmol/L (3.5-5.5); Total Protein 5.9 g/dL (6.2-8.2)
--- NOTE | 2020-02-17 11:40 | P.CNNES ---
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 The patient stated that since 2019 he's been having bilateral frontal headaches, it's constant, it's 5-6/10, there is no radiation associated with this. He denies any photophobia, phonophobia, nausea or vomiting. He denies that he has to be in a dark quiet place. He also has an intermittent entire left blurry vision that can last hours to days. Sometimes he states the bad that he has diplopia which is [id number] over the left eye as well. And it's also intermittent. He also has mid cervical pain since that time and that is also 5-6 out of 10, dull, there is no radiation, it's constant. He denies any weakness of the upper or lower extremity or any numbness of upper or lower extremity. Denies any difficulty getting his words out that. He does have the chronic dysarthria from his cancer but otherwise no worsening of his the voice. He denies any ringing in the ears or hearing loss. He notes that that he has a fever. Patient has his fluid intake through his PEG tube and cannot eat or drink orally which is chronic. The patient follows up with Dr. Barron (Heme/Oncologist). Patient stated that regarding his pharyngeal cancer he had chemotherapy and radiation therapy. The radiation therapy is focal and the last time he had it was the an JulyAugust 2018. He is currently on Opdivo (Nivolumab). Workup in the hospital consisted of: Initial vital signs: Blood pressure of 134/79, heart rate of 112, respiratory of 18, temperature of 102 Fahrenheit oral and pulse ox of 98% at room air. CT of the head is reported as able atrophy. No acute intracranial abnormality. CT of the cervical spine is reported as mild cervical multilevel spondylitic changes at. No fractures. CT of the chest is reported as bilateral minimal pulmonary changes consistent with some interstitial fibrosis at. Minimal emphysema. No adverse change compared to old exam. The labs white blood cell is 3.8. Sodium is 136. AST is 91 and the ALT is 103. The plasma lactic acid vein is 2.3. Upon reviewing the patient's medical records: Dr. Chavez on 11/22/2017 he reports that the patient had history of progressive swelling in the right neck associate with speech changes and nasal congestion, dysphagia. Also it it's documented in the in the note that the patient has "potato voice". He also the been complaining of weight loss for the last few months in 2018. CT of the neck showed large mass in the right oral pharynx with some cervical lymphadenopathy. Patient had many consultants and patient underwent tracheostomy as well as note biopsy and the pharyngeal biopsy. Patient also had right neck mass fine-needle aspiration. 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 He also had a right colon biopsy which is reported as acute and resolving ischemic colitis with focal luminal surface pseudomembrane (collected on 03/31/2018). Review of Systems Review of system: The 12 point system was reviewed and apparent positive and negative per HPI. Past Medical History Past Medical History: Cancer, Osteoarthritis (OA) Additional Past Medical History / Comment(s): Esophageal cancer with trach, PEG tube x2 years History of Any Multi-Drug Resistant Organisms: None Reported Past Surgical History: Bowel Resection Additional Past Surgical History / Comment(s): Tracheostomy, and PEG tube, colostomy reversed December (2018) Past Anesthesia/Blood Transfusion Reactions: No Reported Reaction Past Psychological History: Anxiety, Depression Smoking Status: Former smoker Past Alcohol Use History: None Reported Past Drug Use History: None Reported - Past Family History Father Family Medical History: Cancer Additional Family Medical History / Comment(s): prostate cancer that spread to the brain Mother Family Medical History: Cancer Additional Family Medical History / Comment(s): ovarian cancer Sister(s) Family Medical History: Cancer Additional Family Medical History / Comment(s): breast cancer Medications and Allergies Home Medications Medication Instructions Recorded Confirmed Type PARoxetine HCL [Paxil] 10 mg PEG/G-TUBE HS 08/28/19 02/16/20 History Tamsulosin HCl [Flomax] 0.4 mg PEG/G-TUBE DAILY 10/22/19 02/16/20 History Nivolumab [Opdivo] 100 mg IV QMONTHLY 10/27/19 02/16/20 History ALPRAZolam [Xanax] 0.5 mg PEG/G-TUBE BID 02/16/20 02/16/20 History Omeprazole 20 mg PEG/G-TUBE BID 02/16/20 02/16/20 History Allergies Allergy/AdvReac Type Severity Reaction Status Date / Time adhesive tape Allergy Rash/Hives Verified 02/16/20 19:06 latex Allergy Rash/Hives Verified 02/16/20 19:06 Physical Examination - Vital Signs Vital Signs: Vital Signs Temp Pulse Pulse Resp BP BP Pulse Ox 02/17/20 09:00 91 17 02/17/20 08:00 99 F 91 17 145/78 94 L 02/17/20 02:00 98.0 F 79 17 108/62 98 02/16/20 20:10 67 18 112/63 96 02/16/20 19:20 92 18 110/70 96 02/16/20 18:00 98.8 F 99 18 111/62 97 02/16/20 17:09 100.9 F H 104 H 18 122/76 98 02/16/20 14:31 102.0 F H 112 H 18 134/79 98 Intake and Output 02/16/20 02/17/20 02/17/20 22:59 06:59 14:59 Other: # Voids 3 GENERAL: The patient is lying in bed and is not in acute distress. ENT: Bilateral anterior throat seems enlarged (according to patient chronic). No nucal ridigity noted. CHEST: The heart rate is regular rate rhythm. No murmurs to auscultation. LUNG: Clear to auscultation bilaterally no wheezing noted throughout. Not labored breathing. ABDOMEN/GI: Bowel sounds present in all 4 quadrants. No tenderness to palpation throughout. NEUROLOGICAL: Higher mental function: The patient is awake, alert, oriented to self, place and time. Patient is following commands. No aphasia and no neglect. Cranial nerves: Visual acuity: OD 20/40 and 20/200 OS without correction. The pupils are round, equal and reactive to light and accommodation. Visual alegria are full to confrontation throughout and no diplopia noted throughout. Extraocular movement is intact no nystagmus is noted. Facial sensation is normal to touch throughout. The facial strength is normal throughout. Hearing is normal bilaterally to hand rub. Tongue is midline and moved [id number] without any difficulty. Has mild to minimal moderate dysarthria (chronic). Kinsey ulder shrug is normal bilaterally. Motor: Gait is normal with normal arms swings. The strength is 5 over 5 throughout. Normal tone and bulk. Cerebellum: Normal finger to nose bilaterally. Sensation: Sensation is normal to touch throughout. Reflexes (right/left): 2+ throughout. Plantars: Right is upgoing at baseline. While left is downgoing. Results Urinalysis is negative for urinary tract infection. El virus PCR was not detected. - Laboratory Findings CBC and BMP: 02/17/20 06:02 02/17/20 06:02 Abnormal Lab Findings: Abnormal Labs 02/16/20 02/16/20 02/16/20 17:05 17:05 17:05 RBC 4.09 L Hgb Hct 37.9 L Lymphocytes # 0.2 L Sodium 136 L BUN 22 H BUN/Creatinine Ratio Plasma Lactic Acid Sherman 2.3 H* AST 91 H ALT 103 H Total Protein Urine Protein Amorphous Sediment 02/16/20 02/17/20 02/17/20 17:44 06:02 06:02 RBC 3.75 L Hgb 12.2 L Hct 35.6 L Lymphocytes # 0.3 L Sodium BUN BUN/Creatinine Ratio 27.14 H Plasma Lactic Acid Sherman AST 62 H ALT 82 H Total Protein 5.9 L Urine Protein 1+ H Amorphous Sediment Occasional H Assessment and Plan Assessment: This is a 65-year-old gentleman right of oropharyngeal mass with 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 1. Intermittent blurry vision of left eye with diplopia and bilateral frontal headaches. Need to rule out metastasis of pharyngeal cancer. 2. History of right oropharyngeal mass with invasive poorly differentiated squamous cell carcinoma on the pharyngeal biopsy status post chemotherapy and focal radiation 3. Dysphagia due to #2 status post PEG tube 4. Mild Dysarthria #2 5. Cervical spondylosis 6. Pyrexia 7. Elevated liver function test 8. X tobacco use (80-[id number] smoker quit 2018) Plan: Recommend MRI of the brain and orbit to rule out any metastasis. I ordered TSH level. Oncology team is consulted Regarding the etiology of the fever, infection disease is consulted. If fever etiology is unknown possibly consider lumbar puncture (patient is responding appropriately without nausea, vomitting etc). Currently the patient is on vancomycin and the cefepime. Defer the rest of the medical management to the primary team. The plan was discussed with the patient. Thank you for the consultation. Kana Marte MD Neuro-hospitalist Time with Patient: Greater than 30
--- NOTE | 2020-02-17 16:03 | MR ---
EXAMINATION TYPE: MR brain/orbits wo/w con DATE OF EXAM: 02/17/2020 COMPARISON: None HISTORY: Headache and blurry vision. CONTRAST: Performed utilizing 7.5 mL intravenous Gadavist gadolinium contrast. TECHNIQUE: Multiplanar, multiecho imaging on a 3.0 Larisa magnet is performed through the brain. Stud y is performed within 24 hours of arrival to the hospital. The craniovertebral junction is normal. The pituitary is normal. Diffusion-weighted imaging is performed. No abnormal hyperintensity is present to suggest an acute i ntracranial infarct or acute ischemic change. There are some scattered deep white matter changes which are nonspecific but can be related to microv ascular ischemic change. This would include within the brainstem within the frontal lobe subcortical white matter bilaterally, more so on the left. Within the right steele radiata, and subcortical regio ns right parietal and left frontal lobes and within the left centrum semiovale. Attention is paid to the orbits. The globes are symmetrical. Intraconal and extraconal fat appears un remarkable. Extraocular muscles as visualized are normal and symmetrical. Optic nerves appear normal. Optic chiasm is visualized is normal. Superior ophthalmic veins appear to be patent. Following contrast administration no abnormal enhancement is evident within the brain or within the v isualized orbits Ventricles and sulci are prominent for the patient age. IMPRESSIONS: 1. Scattered chronic appearing deep white matter changes with age-related atrophy. 2. Normal-appearing orbits. 3. No suspicious changes to suggest metastatic disease.
--- NOTE | 2020-02-17 20:00 | P.CONS ---
History of Present Illness - Reason for Consult Consult date: 02/17/20 Cancer care Requesting physician: Bryson Johnson - Chief Complaint Fever - History of Present Illness Patient is well known to us for treatment of head and neck cancer. He presented with fever and some left eye blurriness which has since resolved. Most recently on opdivo treatment. No unilateral weakness or paresthesias. His peg tube site is angry red, no drainage. Review of Systems All systems: negative Constitutional: Reports as per HPI Past Medical History Past Medical History: Cancer, Osteoarthritis (OA) Additional Past Medical History / Comment(s): Esophageal cancer with trach, PEG tube x2 years History of Any Multi-Drug Resistant Organisms: None Reported Past Surgical History: Bowel Resection Additional Past Surgical History / Comment(s): Tracheostomy, and PEG tube, colostomy reversed December (2018) Past Anesthesia/Blood Transfusion Reactions: No Reported Reaction Past Psychological History: Anxiety, Depression Smoking Status: Former smoker Past Alcohol Use History: None Reported Past Drug Use History: None Reported - Past Family History Father Family Medical History: Cancer Additional Family Medical History / Comment(s): prostate cancer that spread to the brain Mother Family Medical History: Cancer Additional Family Medical History / Comment(s): ovarian cancer Sister(s) Family Medical History: Cancer Additional Family Medical History / Comment(s): breast cancer Medications and Allergies Home Medications Medication Instructions Recorded Confirmed Type PARoxetine HCL [Paxil] 10 mg PEG/G-TUBE HS 08/28/19 02/16/20 History Tamsulosin HCl [Flomax] 0.4 mg PEG/G-TUBE DAILY 10/22/19 02/16/20 History Nivolumab [Opdivo] 100 mg IV QMONTHLY 10/27/19 02/16/20 History ALPRAZolam [Xanax] 0.5 mg PEG/G-TUBE BID 02/16/20 02/16/20 History Omeprazole 20 mg PEG/G-TUBE BID 02/16/20 02/16/20 History Allergies Allergy/AdvReac Type Severity Reaction Status Date / Time adhesive tape Allergy Rash/Hives Verified 02/16/20 19:06 latex Allergy Rash/Hives Verified 02/16/20 19:06 Physical Exam Vitals: Vital Signs Temp Pulse Pulse Resp BP BP Pulse Ox 02/17/20 14:00 98.4 F 84 16 110/67 97 02/17/20 09:00 91 17 02/17/20 08:00 99 F 91 17 145/78 94 L 02/17/20 02:00 98.0 F 79 17 108/62 98 02/16/20 20:10 67 18 112/63 96 Intake and Output 02/17/20 02/17/20 02/17/20 06:59 14:59 22:59 Other: # Voids 3 1 - Constitutional General appearance: cooperative, no acute distress - EENT Eyes: EOMI, PERRLA ENT: NA/AT, normal oropharynx - Neck Neck: lymphadenopathy - Respiratory Respiratory: bilateral: diminished - Cardiovascular Rhythm: regular - Gastrointestinal Peg site erythema General gastrointestinal: soft - Integumentary Integumentary: pale - Neurologic Neurologic: CNII-XII intact - Musculoskeletal Musculoskeletal: generalized weakness, strength equal bilaterally - Psychiatric Psychiatric: A&O x's 3, appropriate affect, intact judgment & insight Results CBC & Chem 7: 02/18/20 04:27 02/18/20 04:27 Labs: Abnormal Lab Results - Last 24 Hours (Table) 02/17/20 02/17/20 02/17/20 Range/Units 06:02 06:02 15:12 RBC 3.75 L (4.30-5.90) m/uL Hgb 12.2 L (13.0-17.5) gm/dL Hct 35.6 L (39.0-53.0) % Lymphocytes # 0.3 L (1.0-4.8) k/uL BUN/Creatinine Ratio 27.14 H (12.00-20.00) Ratio AST 62 H (14-35) U/L ALT 82 H (10-49) U/L C-Reactive Protein 64.1 H (<10.0) mg/L Total Protein 5.9 L (6.2-8.2) g/dL Microbiology - Last 24 Hours (Table) 02/16/20 17:05 Blood Culture - Preliminary Blood No Growth after 24 hours MRI - head: report reviewed Assessment and Plan (1) Blurred vision, left eye Current Visit: Yes Status: Acute Code(s): H53.8 - OTHER VISUAL DISTURBANCES SNOMED Code(s): 484703228 (2) Esophageal cancer Current Visit: Yes Status: Acute Code(s): C15.9 - MALIGNANT NEOPLASM OF ESOPHAGUS, UNSPECIFIED SNOMED Code(s): 015768193 (3) Fever, unknown origin Current Visit: Yes Status: Acute Code(s): R50.9 - FEVER, UNSPECIFIED SNOMED Code(s): 5441970 Plan: CT soft tisue of neck Varma cultures negative at this time, likely from peg tube, monitor and cover with abx Immune side effects and blood work completed.
[2020-02-17] MEDS: ACETAMINOPHEN TAB 325 MG TAB PEG/G-TUBE PRN (20:14)
[2020-02-17] MEDS: PARoxetine 10 MG TAB PEG/G-TUBE SCH (20:14)
--- NOTE | 2020-02-17 23:27 | CONS ---
CONSULTATION DATE OF SERVICE: 02/17/2020 REASON FOR CONSULTATION: Fever. HISTORY OF PRESENT ILLNESS: The patient is a 65-year-old male with a past medical history significant for throat cancer in this patient status post radiation and chemotherapy and follows with Dr. Barron. The patient did have a PEG tube for feeding. The patient presented to the ER yesterday afternoon for complaint of neck discomfort, left-sided intermittent blurred vision. The patient denies having any URI symptoms. Denies having any chest pain. No shortness of breath or cough. Denies any abdominal pain. He did have some diarrhea with a few loose stools for the last few days, but mentioned no bowel movement since has been in the hospital. Denies any burning or frequency of urine. The patient's symptoms have been going on since William. The patient did not recall any fever at home. However, on presentation to the hospital, the patient did have a fever of 102 degrees Fahrenheit. The patient did have mild tachycardia. The patient sating 98-97 percent on room air and denies any shortness of breath. The patient did have a normal white count, though did have lymphopenia. The patient did have elevated lactic acid 2.3. Did have elevated liver enzymes. CRP was elevated. Urine is negative. El PCR came back negative. Patient's chest x-ray did not show any acute infiltrate. CT of the cervical spine did not reveal any acute findings. CT of the chest reported bilateral minimal pulmonary changes consistent with some interstitial fibrosis, minimal emphysema, however, no change compared to old exam. An MRI of the orbits and brain did not show any evidence of metastatic disease. The patient has been started on cefepime and vancomycin. He was admitted to the hospital. Infectious Disease was consulted for further management of antibiotic therapy. REVIEW OF SYSTEMS: Positive points have been mentioned in HPI. Rest of the systems are negative. PAST MEDICAL HISTORY: Esophageal cancer, history of osteoarthritis, bowel resection. PAST SURGICAL HISTORY: Tracheostomy, PEG tube, colostomy which was reversed in 2019. Also with a history of SOCIAL HISTORY: Remote history of smoking. No drinking or drug use. FAMILY HISTORY: Father history of metastatic prostate cancer. Mother history of ovarian cancer. ALLERGIES: To ADHESIVE TAPE and LATEX. MEDICATIONS: Include the patient is currently on vancomycin, Flomax, Paxil, Protonix, Zofran, Narcan, cefepime 2 g q.12h. Xanax and Tylenol. PHYSICAL EXAMINATION: Blood pressure 146/80 with a pulse of 80, temperature 98.1. He is 97% on room air. General description is an elderly male lying in bed in no distress. No tachypnea or accessory muscles of respiration use. HEENT: Examination shows no pallor or scleral icterus. Oral mucous membranes dry. Neck trachea central, no thyromegaly. Lungs unlabored breathing, decreased breath sounds at the bases. No wheeze. HEART: S1, S2. Regular rate and rhythm. ABDOMEN: Soft, no tenderness. No guarding. No rigidity. Extremities: No edema of the feet. Skin examination: No rash or mass palpable. Neurological: Patient is awake, alert, oriented x3. Mood and affect normal. LABS: Hemoglobin is 12.8, white count of 4.1. Urine was negative. BUN of 19, creatinine 0.7. Lactic acid was elevated. Liver enzymes are elevated. El PCR negative. CT and MRI report as mentioned above. DIAGNOSTIC IMPRESSION AND PLAN: Patient admitted to the hospital with sepsis in this patient who did have a fever, elevated lactic acid, elevated liver enzymes in this patient workup so far negative including a negative UA and negative CT chest did not show any evidence of pneumonia with question of possible abdominal source was related to his throat cancer/viral syndrome. PLAN: 1. We will obtain a CT of abdomen and pelvis with contrast in the a.m. 2. Discontinue vancomycin and cefepime. 3. We will start the patient on Unasyn 3 grams q.6 hours. 4. We will follow on his clinical condition and culture to further adjust medication if needed. Thank you for this consultation. Will follow this patient along with you. MMODL / IJN: [id number] /
[2020-02-18] MEDS ORDERED: VANCOMYCIN TROUGH DUE 1 EACH MISC MISCELLANE ONE (04:00)
[2020-02-18 05:10] LABS: African American GFR (CKD) >90 (>60 ml/min/1.73 sqM); Non-African American GFR(CKD) >90 (>60 ml/min/1.73 sqM)
[2020-02-18] MEDS: CEFEPIME 2 GM in SODIUM CHLORIDE 0.9% 100 ML IVPB SCH (05:21)
[2020-02-18] MEDS: VANCOMYCIN 1,500 MG in SODIUM CHLORIDE 0.9% 250 ML IVPB SCH (05:21)
[2020-02-18] MEDS: ALPRAZolam 0.5 MG TAB PEG/G-TUBE SCH ×2 (08:43→21:16)
[2020-02-18] MEDS: TAMSULOSIN 0.4 MG CAP.ER.24H PO SCH (08:43)
[2020-02-18] MEDS: PANTOPRAZOLE SODIUM 40 MG GRANULE PKT PEG/G-TUBE SCH (08:43)
[2020-02-18 11:32] LABS: Basophils % (A) 0 %; Eosinophils # (A) 0.1 k/uL (0-0.7); Eosinophils % (A) 3 %; HCT 36.3 % (39.0-53.0); HGB 12.1 gm/dL (13.0-17.5); Lymphocytes # (A) 0.3 k/uL (1.0-4.8); Lymphocytes % (A) 8 %; MCH 32.2 pg (25.0-35.0); MCHC 33.3 g/dL (31.0-37.0); MCV 96.7 fL (80.0-100.0); Mean Platelet Volume 9.3; Monocytes # (A) 0.3 k/uL (0-1.0); Monocytes % (A) 7 %; Neutrophils # (A) 2.9 k/uL (1.3-7.7); Neutrophils % (A) 80 %; Platelet Count 187 k/uL (150-450); RBC 3.75 m/uL (4.30-5.90); RDW 13.5 % (11.5-15.5); WBC 3.7 k/uL (3.8-10.6)
--- NOTE | 2020-02-18 12:50 | P.PN ---
Subjective Progress Note Date: 02/18/20 She was seen at bedside and he stated that the his condition has been improving since initial presentation. He said his headache is very subtle over the bilateral frontal region. Denies photophobia, phonophobia, nausea or vomitting. Denies weakness or numbness. He feels his vision over the left eye is improving. Patient denies of any focal weakness, numbness. Objective - Vital Signs Vital signs: Vital Signs Temp 99.6 F 02/18/20 08:00 Pulse 94 02/18/20 08:00 Resp 16 02/18/20 08:00 BP 109/67 02/18/20 08:00 Pulse Ox 97 02/18/20 08:00 Intake & Output 02/17/20 02/18/20 02/18/20 18:59 06:59 18:59 Weight 80.286 kg Other: Voiding Method Toilet # Voids 1 1 - Exam GENERAL: The patient is lying in bed and is not in acute distress. NEUROLOGICAL: Higher mental function: The patient is awake, alert, oriented to self, place and time. Patient is following commands. No aphasia and no neglect. Cranial nerves: The pupils are round, equal and reactive to light and accommodation. Visual alegria are full to confrontation throughout and no diplopia noted throughout. Extraocular movement is intact no nystagmus is noted. Facial sensation is normal to touch throughout. The facial strength is normal throughout. Hearing is normal bilaterally to hand rub. Tongue is midline and moved [id number] without any difficulty. Has mild to minimal mo derate dysarthria (chronic). Shoulder shrug is normal bilaterally. Motor: Gait is normal with normal arms swings. The strength is 5 over 5 throughout. Normal tone and bulk. Cerebellum: Normal finger to nose bilaterally. Sensation: Sensation is normal to touch throughout. Reflexes (right/left): 2+ throughout. Plantars: Right is upgoing at baseline. While left is downgoing. 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 1. Intermittent blurry vision of left eye with diplopia and bilateral frontal headaches. Unsure exact Etiology. Possibly TIA. 2. History of right oropharyngeal mass with invasive poorly differentiated squamous cell carcinoma on the pharyngeal biopsy status post chemotherapy and focal radiation 3. Dysphagia due to #2 status post PEG tube 4. Mild Dysarthria #2 5. Cervical spondylosis 6. Pyrexia 7. Elevated liver function test 8. X tobacco use (98-xnyk-hrky smoker quit 2018) Plan: MRI the brain as well as orbit is reported as scattered chronic appearing deep white matter changes with age-related atrophy. Normal appearing orbits. No suspicious changes assessment metastatic disease. TSH level: 2.53 (normal). Ordered 2-D echo as well as lipid panel. I started the patient on 81 aspirin and Lipitor 10 mg daily. He has slight elevation of liver function. I also ordered routine EEG to rule out any underlying seizure especially of the patient's been having repeated episode of the left blurry vision and diplopia da ughter transient. I'll not start the patient on antiepileptic drug unless there is epileptiform di scharges or seizure on EEG. Oncology team is consulted Regarding the etiology of the fever, infection disease is consulted. If fever etiology is unknown possibly consider lumbar puncture (patient is responding appropriately without nausea, vomitting etc). Will Defer the rest of the medical management to the primary team. The patient needs to follow-up with neurologist and Ophthamologist as outpatient within 1-2 weeks. The plan was discussed with the patient and his nurse. Kana Marte MD Neuro-hospitalist Time with Patient: Less than 30
[2020-02-18] MEDS: AMPICILLIN-SULBACTAM 3 GM in SODIUM CHLORIDE 0.9% 100 ML IVPB SCH ×2 (12:59→17:44)
[2020-02-18] MEDS: ASPIRIN 81 MG PO SCH (12:59)
--- NOTE | 2020-02-18 15:16 | P.PN ---
Subjective Progress Note Date: 02/18/20 Principal diagnosis: Fever Erythema at peg tube site, patient states he frequently has irritation there. Objective - Vital Signs Vital signs: Vital Signs Temp 99.6 F 02/18/20 08:00 Pulse 94 02/18/20 08:00 Resp 16 02/18/20 08:00 BP 109/67 02/18/20 08:00 Pulse Ox 97 02/18/20 08:00 Intake & Output 02/17/20 02/18/20 02/18/20 18:59 06:59 18:59 Weight 80.286 kg Other: Voiding Method Toilet # Voids 1 1 - Exam - Constitutional General appearance: cooperative, no acute distress - EENT Eyes: EOMI, PERRLA ENT: NA/AT, normal oropharynx - Neck Neck: lymphadenopathy - Respiratory Respiratory: bilateral: diminished - Cardiovascular Rhythm: regular - Gastrointestinal Peg site erythema General gastrointestinal: soft - Integumentary Integumentary: pale - Neurologic Neurologic: CNII-XII intact - Musculoskeletal Musculoskeletal: generalized weakness, strength equal bilaterally - Psychiatric Psychiatric: A&O x's 3, appropriate affect, intact judgment & insight - Labs CBC & Chem 7: 02/18/20 04:27 02/18/20 04:27 Labs: Abnormal Lab Results - Last 24 Hours (Table) 02/17/20 02/18/20 02/18/20 Range/Units 15:12 04:27 04:27 WBC 3.7 L (3.8-10.6) k/uL RBC 3.75 L (4.30-5.90) m/uL Hgb 12.1 L (13.0-17.5) gm/dL Hct 36.3 L (39.0-53.0) % Lymphocytes # 0.3 L (1.0-4.8) k/uL Creatinine 0.63 L (0.66-1.25) mg/dL C-Reactive Protein 64.1 H (<10.0) mg/L Microbiology - Last 24 Hours (Table) 02/16/20 17:05 Blood Culture - Preliminary Blood No Growth after 24 hours Assessment and Plan (1) Blurred vision, left eye Current Visit: Yes Status: Acute Code(s): H53.8 - OTHER VISUAL DISTURBANCES SNOMED Code(s): 357045556 (2) Esophageal cancer Current Visit: Yes Status: Acute Code(s): C15.9 - MALIGNANT NEOPLASM OF ESOPHAGUS, UNSPECIFIED SNOMED Code(s): 846921564 (3) Fever, unknown origin Current Visit: Yes Status: Acute Code(s): R50.9 - FEVER, UNSPECIFIED SNOMED Code(s): 5539195 Plan: CT soft tisue of neck Varma cultures negative at this time, likely from peg tube, monitor and cover with abx Blood work stable Will update .
--- NOTE | 2020-02-18 16:03 | CT ---
EXAMINATION TYPE: CT soft tissue neck w con DATE OF EXAM: 02/18/2020 COMPARISON: 01/27/2020 HISTORY: Esophageal CA CT DLP: 407.4 mGycm CONTRAST: Patient injected with 100 mL of Isovue 300. TECHNIQUE: Axial images at 3 mm thick sections. Reconstructed images in the coronal plane and sagitt al plane are reviewed. FINDINGS: Limited CT sections are obtained the lung apices. There is thickening at the right apex. CT neck: The torus tubarius and fossa of Rosenmuller are normal. Student Specialist spaces are normal. Para nasal sinuses and mastoid air cells are clear. Parotid glands appear normal and symmetrical. Submandibular glands, are normal. Parapharyngeal spac es are normal. No suspicious adenopathy is evident. There is asymmetry of the hypopharynx. There is thickening of the left tonsillar pillar. Diffuse soft tissue swelling is throughout the hypopharynx. There is increased vascularity through the retrophary ngeal space. There is some asymmetry at the level the vocal cord. Heterogenous appearance to the thyroid with an enlarged left lobe thyroid. This could be further eval uated with ultrasound. Osseous structures are normal. IMPRESSIONS: 1. Diffuse thickening through the hypopharynx greater on the left hand side into the tonsillar pillar suspicious for neoplasm. Increased vascularity in the retropharyngeal space appears to be present. F indings are worsening from the comparison of 01/27/2020.
--- NOTE | 2020-02-18 17:15 | ECHOF ---
Referral Reason:tia MEASUREMENTS -------- HEIGHT: 167.6 cm WEIGHT: 80.3 kg BP: RVIDd: 3.2 cm (< 3.3) IVSd: 1.3 cm (0.6 - 1.1) LVIDd: 3.6 cm (3.9 - 5.3) LVPWd: 1.3 cm (0.6 - 1.1) IVSs: 1.7 cm LVIDs: 2.3 cm LVPWs: 1.9 cm LA Diam: 3.2 cm (2.7 - 3.8) Ao Diam: 3.6 cm (2.0 - 3.7) AV Cusp: 2.0 cm (1.5 - 2.6) MV EXCURSION: 16.920 mm (> 18.000) MV EF SLOPE: 82 mm/s (70 - 150) EPSS: 0.3 cm MV E Rony: 0.76 m/s MV DecT: 252 ms MV A Rony: 0.96 m/s MV E/A Ratio: 0.79 RAP: 5.00 mmHg RVSP: 24.48 mmHg FINDINGS -------- Sinus rhythm. This was a technically good study. The left ventricular size is normal. There is borderline concentric left ventricular hypertrophy. Overall left ventricular systolic function is normal with, an EF between 60 - 65 %. The right ventricle is normal in size. The left atrial size is normal. The right atrium is normal in size. Interatrial and interventricular septum intact. The aortic valve is trileaflet and appears structurally normal. There is trace to mild mitral regurgitation. Mild tricuspid regurgitation present. Right ventricular systolic pressure is normal at < 35 mmHg. Trace/mild (physiologic) pulmonic regurgitation. The aortic root size is normal. Normal inferior vena cava with normal inspiratory collapse consistent with estimated right atrial pre ssure of 5 mmHg. There is no pericardial effusion. CONCLUSIONS -------- 1. The left ventricular size is normal. 2. There is borderline concentric left ventricular hypertrophy. 3. Overall left ventricular systolic function is normal with, an EF between 60 - 65 %. 4. The aortic valve is trileaflet and appears structurally normal. 5. There is trace to mild mitral regurgitation. 6. Mild tricuspid regurgitation present. 7. Trace/mild (physiologic) pulmonic regurgitation. 8. There is no pericardial effusion. PAINTER FOREMAN: Selina Moreland RDCS
--- NOTE | 2020-02-18 18:33 | EEG ---
ELECTROENCEPHALOGRAM REPORT DATE OF SERVICE: 02/18/2020 CLINICAL HISTORY: This is a 65-year-old gentleman with repeated transient episode of left blurry vision as well as diplopia. The video EEG is obtained to evaluate for seizure and epileptiform activity. RELEVANT MEDICATION: The patient is not on any antiepileptic drug. EEG TYPE: A routine 21-channel EEG is performed with video using the 10/20 electrode placement system. DESCRIPTION: Wakefulness only is obtained. During wakefulness, there is a posterior-dominant rhythm of low to moderate voltage, reactive, well modulated, of 6.5 to 7.5 hertz activity. There is no physiological stage II seen. INTERICTAL AND ICTAL: None. ACTIVATION PROCEDURE: Photic stimulation did not evoke a posterior driving response. Hyperventilation is not performed. CLINICAL INTERPRETATION: This is an abnormal routine EEG. The background slowing is suggestive of mild encephalopathy of unspecified etiology. There are no focal slowing, epileptiform discharges or seizure during the study. Clinical correlation is recommended. LEATHA / REGULON: [id number] / MTDJerry
--- NOTE | 2020-02-18 20:18 | PN ---
PROGRESS NOTE This is a 65-year-old white male on IV Zosyn. Waiting for a CT scan of the abdomen tomorrow to look for abdominal source of infection. Neurology cleared him with a normal MRI and orbits. CARDIOVASCULAR: S1, S2. LUNGS: Clear. GI: Soft. HEMATOLOGY: Negative Homans. ASSESSMENT: Acute febrile infection; unclear etiology. CT scan of the abdomen to rule out abdominal findings. Wait for Neurology to get recommendations, but I suspect he is okay that way. He appears to be stable tonight. Will follow up in next 24 to 48 hours. MMODL / IJN: [id number] /
[2020-02-18] MEDS: ATORVASTATIN 10 MG TAB PO SCH (21:16)
[2020-02-18] MEDS: PARoxetine 10 MG TAB PEG/G-TUBE SCH (21:16)
--- NOTE | 2020-02-18 22:49 | PN ---
PROGRESS NOTE DATE OF SERVICE: 02/18/2020 REASON FOR FOLLOWUP: Fever. INTERVAL HISTORY: The patient is currently afebrile. The patient is breathing comfortably. Denies having any chest pain or shortness of breath or cough. No abdominal pain or diarrhea. PHYSICAL EXAMINATION: Blood pressure 109/67, pulse of 94, temperature 99.6. He is 97% on room air. General description is an elderly male lying in bed in no distress. RESPIRATORY SYSTEM: Unlabored breathing with decreased breath sounds at the base. No wheeze. HEART: S1, S2. Regular rate and rhythm. ABDOMEN: Soft. No tenderness. LABS: Hemoglobin is 12.1, white count 3.7, creatinine 0.63. Vancomycin trough was 18.2. Blood culture has been negative. DIAGNOSTIC IMPRESSION AND PLAN: Patient with a fever in this patient who did have a history of throat cancer, on chemo and radiation with a PEG tube. CT did show diffuse thickening left side and the tonsillar pillar suspicious for neoplasm; slightly worse than January. Patient to continue with Unasyn while waiting for the culture to finalize. Check a CT of abdomen and pelvis tomorrow and monitor his clinical course closely. MMODL / IJN: [id number] /
[2020-02-19] MEDS: AMPICILLIN-SULBACTAM 3 GM in SODIUM CHLORIDE 0.9% 100 ML IVPB SCH ×4 (00:26→18:08)
[2020-02-19 06:49] LABS: African American GFR (CKD) >90 (>60 ml/min/1.73 sqM); Non-African American GFR(CKD) >90 (>60 ml/min/1.73 sqM)
[2020-02-19] MEDS: IOPAMIDOL CONTRAST (ORAL USE) VIAL PO PRN ×2 (08:07→09:07)
[2020-02-19] MEDS: TAMSULOSIN 0.4 MG CAP.ER.24H PO SCH (10:49)
[2020-02-19] MEDS: ASPIRIN 81 MG PO SCH (10:49)
[2020-02-19] MEDS: PANTOPRAZOLE SODIUM 40 MG GRANULE PKT PEG/G-TUBE SCH (10:49)
[2020-02-19] MEDS: ALPRAZolam 0.5 MG TAB PEG/G-TUBE SCH ×2 (10:49→20:00)
--- NOTE | 2020-02-19 10:59 | CT ---
EXAMINATION TYPE: CT abdomen pelvis wo con DATE OF EXAM: 02/19/2020 COMPARISON: 01/27/2020 HISTORY: 65-year-old male fever CT DLP: 411.8 mGycm. Automated exposure control for dose reduction was used. TECHNIQUE: Contiguous axial scanning of the abdomen and pelvis without IV contrast. Coronal and sagit ruth reconstructions performed. FINDINGS: Heart normal size with trace anterior pericardial fluid. Trace effusions are noted. There is strandy basilar atelectasis. Noncontrast appearance of the liver, gallbladder, adrenal glands, spleen, pancreas show no gross abno rmality. A few scattered punctate 1 to 2 mm nonobstructive renal calculi on both sides. No hydronephrosis. Redemonstrated Dean catheter with balloon that appears appropriately positioned within the stomach. No dilated small bowel, free fluid, or free air. No mesenteric or retroperitoneal lymphadenopathy see n. Oral contrast progressed to the sigmoid colon. There is sigmoid diverticulosis without pericolonic in flammatory change. Moderate circumferential bladder wall thickening. No abnormal fluid collection in the pelvis or pelvi c lymphadenopathy. Minimal presacral edema. Bones: Stable sclerosis of the right ischium and left T9 transverse process compatible with known oss eous metastatic disease. DISH within the lower thoracic spine. IMPRESSION: 1. Moderate bladder wall thickening. Correlate to exclude cystitis. 2. Sigmoid diverticulosis without convincing evidence for acute diverticulitis. 3. Trace pleural effusions. PEG tube in place. 4. Punctate nonobstructive renal calculi on both sides. 5. Sclerosis within the right ischium and left T9 transverse process compatible with known osseous m etastatic disease.
--- NOTE | 2020-02-19 12:53 | P.PN ---
Subjective Progress Note Date: 02/19/20 She was seen at bedside and he stated that the his condition has been improving since initial presentation. He denies any further blurry vision or diplopia. He states his headaches has improved compared to presentation. Objective - Vital Signs Vital signs: Vital Signs Temp 98.5 F 02/19/20 07:46 Pulse 90 02/19/20 07:46 Resp 20 02/19/20 07:46 BP 107/65 02/19/20 07:46 Pulse Ox 96 02/19/20 07:46 Intake & Output 02/18/20 02/19/20 02/19/20 18:59 06:59 18:59 Intake Total 300 Balance 300 Weight 80.286 kg 76.204 kg Intake: Tube Feeding 300 - Exam GENERAL: The patient is lying in bed and is not in acute distress. NEUROLOGICAL: Higher mental function: The patient is awake, alert, oriented to self, place and time. Patient is following commands. No aphasia and no neglect. Cranial nerves: The pupils are round, equal and reactive to light and accommodation. Visual alegria are full to confrontation throughout and no diplopia noted throughout. Extraocular movement is intact no nystagmus is noted. Facial sensation is normal to touch throughout. The facial strength is normal throughout. Hearing is normal bilaterally to hand rub. Tongue is midline and moved [id number] without any difficulty. Has mild to minimal moderate dysarthria (chronic). Shoulder shrug is normal bilaterally. Motor: Gait is normal with normal arms swings. The strength is 5 over 5 throughout. Normal tone and bulk. Cerebellum: Normal finger to nose bilaterally. Sensation: Sensation is normal to touch throughout. Reflexes (right/left): 2+ throughout. Plantars: Right is upgoing at baseline. While left is downgoing. 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 1. Intermittent blurry vision of left eye with diplopia and bilateral frontal headaches----resolved. Unsure exact Etiology. Possibly TIA. 2. 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 Dysphagia due to #2 status post PEG tube 4. Mild Dysarthria #2 5. Cervical spondylosis 6. Pyrexia 7. Elevated liver function test 8. X tobacco use ([id number] smoker quit 2018) Plan: MRI the brain as well as orbit is reported as scattered chronic appearing deep white matter changes with age-related atrophy. Normal appearing orbits. No suspicious changes assessment metastatic disease. TSH level: 2.53 (normal). 2-D echo: Overall left ventricular systolic function is normal with ejection fraction of 66 5%. Left atrial size is normal. Lipid panel. Contiue 81 aspirin and Lipitor 10 mg daily. Continue Lipitor 10 mg daily (low dose because of slight elevated LFT's). Routine EE abnormal routine EEG. The back is on this is as above mild encephalopathy of unspecified etiology. There are no focal slowing, perform discharges or seizure during the study. Oncology team is consulted Will Defer the rest of the medical management to the primary team. The patient needs to follow-up with neurologist and Ophthamologist as outpatient within 1-2 weeks. The plan was discussed with the patient and his nurse. There is no further neurological work-up needed at this time. We will sign off. Please reconsult neurology if needed. Kana Marte MD Neuro-hospitalist Time with Patient: Less than 30
--- NOTE | 2020-02-19 17:29 | PN ---
PROGRESS NOTE 65-year-old white male white count 3.7, hemoglobin 12.1. He has had no further fevers in the hospital since admission. Blood pressure is 90s to 110 over 60s to 70s. O2 98 on room air, respiratory 16 to 18, respiratory rate 20. Lungs are clear. Cardiovascular: S1-S2. Hematology: Negative Homans'. Psych: Fair mood and affect. He had a CT scan of the abdomen and pelvis today which showed moderate bladder wall thickening. Correlate to exclude cystitis. IMPRESSION: 1. Sigmoid diverticulosis. 2. Trace pleural effusion. 3. PEG tube. 4. Nonobstructive renal kidney calculi. 5. Sclerosis due to possible osseous metastasis disease. Await for Dr. Smith's recommendations of antibiotic prior to discharge. His urine was negative for any infection, so possibly may be able to be discharged home in the next day or 2. Waiting for recommendations per Infectious Disease. MMODL / IJN: [id number] /
[2020-02-19] MEDS: PARoxetine 10 MG TAB PEG/G-TUBE SCH (20:00)
[2020-02-19] MEDS: ATORVASTATIN 10 MG TAB PO SCH (20:00)
--- NOTE | 2020-02-19 22:27 | PN ---
PROGRESS NOTE DATE OF SERVICE: 02/19/2020 REASON FOR FOLLOWUP: Fever. INTERVAL HISTORY: Patient did have a low-grade fever of 99.4 last night. The patient is afebrile since then. The patient overall is feeling better. He is breathing comfortably. Denies having any chest pain. No shortness of breath or cough. No abdominal pain. No diarrhea. PHYSICAL EXAMINATION: Blood pressure 130/72 with a pulse of 87, temperature 98.2. He is 98% room air. General description: The patient is an elderly male lying in bed in no distress. Respiratory system: Unlabored breathing. Clear to auscultation. No wheeze or crackles. Heart S1, S2. Regular rate and rhythm. ABDOMEN: Soft, no tenderness. LABS: Blood culture negative. Creatinine 0.68. The patient did have a CT of abdomen and pelvis with moderate bladder wall draining for cystitis and abdomen. DIAGNOSTIC IMPRESSION AND PLAN: Patient with a fever with concern for possible cystitis. was not significantly positive, patient white count and fever did respond to the Unasyn to continue. Will repeat his UA as the patient remains to be febrile. Hopefully finish therapy with oral Augmentin. Continue supportive care. MMODL / IJN: [id number] /
[2020-02-20] MEDS: AMPICILLIN-SULBACTAM 3 GM in SODIUM CHLORIDE 0.9% 100 ML IVPB SCH ×4 (00:42→19:21)
[2020-02-20] MEDS: ACETAMINOPHEN TAB 325 MG TAB PEG/G-TUBE PRN ×2 (00:43→20:46)
[2020-02-20 04:07] LABS: Amorphous Sediment,Urine Occasional /hpf; Appearance,Urine Turbid (Clear); Bacteria,Urine Rare /hpf; Bilirubin,Urine Negative (Negative); Blood,Urine Negative (Negative); Color,Urine Yellow; Glucose,Urine (UA) Negative (Negative); Ketones,Urine Negative (Negative); Leukocyte Esterase,Urine Negative (Negative); Mucus,Urine Occasional /hpf; Nitrite,Urine Negative (Negative); PH, Urine 7.5 (5.0-8.0); Protein,Urine 1+ (Negative); RBC,Urine 2 /hpf (0-5); Specific Gravity,Urine 1.024 (1.001-1.035); Squamous Epithelial Cell,Urine 1 /hpf (0-4); Urobilinogen,Urine <2.0 mg/dL (<2.0); WBC,Urine 1 /hpf (0-5)
[2020-02-20 06:55] LABS: Basophils % (A) 0 %; Eosinophils # (A) 0.1 k/uL (0-0.7); Eosinophils % (A) 3 %; HCT 32.7 % (39.0-53.0); HGB 11.4 gm/dL (13.0-17.5); Lymphocytes # (A) 0.3 k/uL (1.0-4.8); Lymphocytes % (A) 11 %; MCH 32.2 pg (25.0-35.0); MCHC 34.9 g/dL (31.0-37.0); MCV 92.4 fL (80.0-100.0); Mean Platelet Volume 7.4; Monocytes # (A) 0.1 k/uL (0-1.0); Monocytes % (A) 5 %; Neutrophils # (A) 2.3 k/uL (1.3-7.7); Neutrophils % (A) 79 %; Platelet Count 176 k/uL (150-450); RBC 3.53 m/uL (4.30-5.90); RDW 13.3 % (11.5-15.5); WBC 2.9 k/uL (3.8-10.6)
[2020-02-20] MEDS: TAMSULOSIN 0.4 MG CAP.ER.24H PO SCH (08:55)
[2020-02-20] MEDS: PANTOPRAZOLE SODIUM 40 MG GRANULE PKT PEG/G-TUBE SCH (08:55)
[2020-02-20] MEDS: ASPIRIN 81 MG PO SCH (08:55)
[2020-02-20] MEDS: ALPRAZolam 0.5 MG TAB PEG/G-TUBE SCH ×2 (08:55→20:45)
[2020-02-20 10:10] LABS: African American GFR (CKD) 114.8 (60.0-200.0); Albumin 3.4 g/dL (3.80-4.90); Albumin/Globulin Ratio 1.7 (1.60-3.17); Anion Gap 7.9 mmol/L (4.00-12.00); BUN/Creat Ratio 22.86 Ratio (12.00-20.00); Carbon Dioxide 26.1 mmol/L (21.6-31.8); Chol/HDL Ratio 3.91; LDL Cholesterol,Calculated 41.2 mg/dL (0.0-131.0); Potassium 3.4 mmol/L (3.5-5.5); Total Bilirubin 0.5 mg/dL (0.2-1.2); Total Protein 5.4 g/dL (6.2-8.2); VLDL Calculation 22.8 mg/dL (5.00-40.00)
[2020-02-20 12:01] VITALS: BMI 27.1
--- NOTE | 2020-02-20 16:01 | P.PN ---
Subjective Progress Note Date: 02/20/20 Principal diagnosis: Fever Ct of soft tissue neck reviewed, possible appearance of progression with changes. PET as outpatient, ENT to assess. Objective - Vital Signs Vital signs: Vital Signs Temp 99.0 F 02/20/20 14:00 Pulse 99 02/20/20 14:00 Resp 17 02/20/20 14:00 BP 112/56 02/20/20 14:00 Pulse Ox 100 02/20/20 14:00 Intake & Output 02/19/20 02/20/20 02/20/20 18:59 06:59 18:59 Weight 76.204 kg 76.204 kg Other: # Voids 2 - Exam - Constitutional General appearance: cooperative, no acute distress - EENT Eyes: EOMI, PERRLA ENT: NA/AT, normal oropharynx - Neck Neck: lymphadenopathy - Respiratory Respiratory: bilateral: diminished - Cardiovascular Rhythm: regular - Gastrointestinal Peg site erythema General gastrointestinal: soft - Integumentary Integumentary: pale - Neurologic Neurologic: CNII-XII intact - Musculoskeletal Musculoskeletal: generalized weakness, strength equal bilaterally - Psychiatric Psychiatric: A&O x's 3, appropriate affect, intact judgment & insight - Labs CBC & Chem 7: 02/20/20 06:21 02/20/20 06:21 Labs: Abnormal Lab Results - Last 24 Hours (Table) 02/20/20 02/20/20 02/20/20 Range/Units 03:22 06:21 06:21 WBC 2.9 L (3.8-10.6) k/uL RBC 3.53 L (4.30-5.90) m/uL Hgb 11.4 L (13.0-17.5) gm/dL Hct 32.7 L (39.0-53.0) % Lymphocytes # 0.3 L (1.0-4.8) k/uL Potassium 3.4 L (3.5-5.5) mmol/L BUN/Creatinine Ratio 22.86 H (12.00-20.00) Ratio Glucose 162 H (70-110) mg/dL Calcium 8.0 L (8.7-10.3) mg/dL AST 50 H (14-35) U/L ALT 62 H (10-49) U/L Total Protein 5.4 L (6.2-8.2) g/dL Albumin 3.40 L (3.80-4.90) g/dL HDL Cholesterol 22.0 L (40.0-60.0) mg/dL Urine Protein 1+ H (Negative) Amorphous Sediment Occasional H (None) /hpf Urine Bacteria Rare H (None) /hpf Urine Mucus Occasional H (None) /hpf Microbiology - Last 24 Hours (Table) 02/16/20 17:05 Blood Culture - Preliminary Blood No Growth after 72 hours Assessment and Plan (1) Blurred vision, left eye Status: Acute Code(s): H53.8 - OTHER VISUAL DISTURBANCES SNOMED Code(s): 676805503 (2) Esophageal cancer Status: Acute Code(s): C15.9 - MALIGNANT NEOPLASM OF ESOPHAGUS, UNSPECIFIED SNOMED Code(s): 425941072 (3) Fever, unknown origin Status: Acute Code(s): R50.9 - FEVER, UNSPECIFIED SNOMED Code(s): 1472338 Plan: CT soft tisue of neck - Appears consistent with possible progression, further work-up outpatient PET and ENT Evaluation. Varma cultures negative at this time, likely from peg tube, monitor and cover with abx physician Attest: I have completed the full history and physical and agree with above dictation, dictated as a scribe
[2020-02-20] MEDS: HYDROPHILIC CREAM 180 GM TUBE TOPICAL SCH (17:43)
--- NOTE | 2020-02-20 18:15 | PN ---
PROGRESS NOTE DATE OF SERVICE: 02/20/2020 REASON FOR FOLLOWUP: Fever possible abdominal source. INTERVAL HISTORY: The patient is currently afebrile. The patient is feeling better. Breathing comfortably. Denies having any chest pain. No shortness of breath or cough. No abdominal pain. Did have minimal diarrhea. PHYSICAL EXAMINATION: Blood pressure 120/86, pulse of 99, temperature 99. He is 100% on room air. General description: The patient is an elderly male lying in bed in no distress. Respiratory system: Unlabored breathing, clear to auscultation anteriorly. Heart S1, S2. Regular rate and rhythm. ABDOMEN: Soft, no tenderness. LABS: Hemoglobin 11.4, white count 2.9, BUN of 16, creatinine 0.7. Blood culture negative. DIAGNOSTIC IMPRESSION AND PLAN: Patient with fever, possible abdominal source versus related to his inflammation noted at this point. The patient clinically responded to Unasyn to finish a short course of oral Augmentin 875 b.i.d. for about a week and close outpatient followup. MMODL / IJN: [id number] /
[2020-02-20] MEDS: ATORVASTATIN 10 MG TAB PO SCH (20:45)
[2020-02-20] MEDS: PARoxetine 10 MG TAB PEG/G-TUBE SCH (20:45)
[2020-02-21] MEDS: AMPICILLIN-SULBACTAM 3 GM in SODIUM CHLORIDE 0.9% 100 ML IVPB SCH ×2 (00:50→05:51)
[2020-02-21 08:22] VITALS: BP 116/70; PULSE 89; RESP 17; TEMP 98.8
[2020-02-21] MEDS: PANTOPRAZOLE SODIUM 40 MG GRANULE PKT PEG/G-TUBE SCH (08:24)
[2020-02-21] MEDS: TAMSULOSIN 0.4 MG CAP.ER.24H PO SCH (08:24)
[2020-02-21] MEDS: HYDROPHILIC CREAM 180 GM TUBE TOPICAL SCH (08:24)
[2020-02-21] MEDS: ALPRAZolam 0.5 MG TAB PEG/G-TUBE SCH (08:24)
[2020-02-21] MEDS: ASPIRIN 81 MG PO SCH (08:24)
[2020-02-21] MEDS ORDERED: AMOXIC-POT CLAV 875-125MG 1 EACH TAB PO SCH (10:45)
--- NOTE | 2020-02-21 11:40 | PN ---
PROGRESS NOTE DATE OF SERVICE: 02/20/2020 This is a 65-year-old white male with fearful abdominal source. He had severe vision abnormalities which were ruled out with MRI for any acute neurologic event. Blood pressure is 120s over 80s, temp 98, pulse in the high 90s. O2 is 100% on room air. No distress. Unlabored breathing. Lungs are clear. Cardiac regular rate and rhythm. Psych fair mood and affect. Neurologic alert and oriented x3. He is demanding to go home. Blood cultures have been negative. White count is 2.9, creatinine 0.7, BUN is 16. ASSESSMENT: Fever, possible abdominal source versus some inflammation from his cancer. Unasyn will be given another day and possibly home for oral Augmentin as an outpatient. MMODL / IJN: [id number] /
--- NOTE | 2020-02-26 20:54 | DS ---
DISCHARGE SUMMARY DISCHARGE MEDICATIONS: 1. Paxil 10 mg per PEG tube. 2. Flomax 0.4 mg per PEG tube. 3. Opdivo 100 IV q.month. 4. Xanax 0.5 PEG tube b.i.d. 5. Omeprazole 20 mg PEG tube b.i.d. 6. Aspirin 81 mg daily. 7. Augmentin 875 q.12 hours p.r.n. for 7 days. 8. Lipitor 10 mg daily. 9. Acetaminophen 325 q.6 hours p.r.n. The patient came in with a fever of unknown origin, a fever up to 102. We are unsure what caused this fever. He was also seen by Neurology for acute diplopia. The assessment was intermittent blurred vision with diplopia. Bilateral frontal headaches resolved. Unsure etiology. History of right oropharyngeal mass, invasive poorly differentiated squamous cell carcinoma, status post chemotherapy and focal radiation. Dysphagia secondary to the cancer. Esophageal dysmobility with PEG tube. Dysarthria. Cervical spondylosis. Pyrexia. Elevated liver enzymes, tobacco use. MRI of the brain was done which showed chronic changes. No metastases. Echo showed normal ejection fraction. Medications were adjusted. Infectious Disease saw him for fever. Their recommendation was possible abdominal source versus chronic inflammation. No source was found for his fever. We gave him Augmentin 875 b.i.d. for a week to go home on. While he was in the hospital he was on IV Unasyn. Follow up as an outpatient. No signs of further cancer or metastasis seen. MMODL / IJN: [id number] /
== END 2020-02-21 12:50 | disposition home or self-care (01) | DRG 864 ==
LOC: EC 14:25 → 4SSUR 18:48 → 5NMEDONC 02-17 11:45
PROVIDERS: ADMIT Family Medicine; ATTEND Family Medicine
PROC: 3E0G76Z Introduction of Nutritional Substance into Upper GI, Via Natural or Artificial Opening (ICD-10-PCS; principal; 2020-02-18)
DX: R50.9 Fever, unspecified (principal); C15.9 Malignant neoplasm of esophagus, unspecified; E87.2 Acidosis; H53.2 Diplopia; H53.8 Other visual disturbances; R51.9 Headache, unspecified; C14.0 Malignant neoplasm of pharynx, unspecified; D72.810 Lymphocytopenia; K57.30 Diverticulosis of large intestine without perforation or abscess without bleeding; M47.812 Spondylosis without myelopathy or radiculopathy, cervical region; N20.0 Calculus of kidney; R13.10 Dysphagia, unspecified; Z79.899 Other long term (current) drug therapy; Z80.3 Family history of malignant neoplasm of breast; Z80.42 Family history of malignant neoplasm of prostate; Z87.891 Personal history of nicotine dependence; Z92.21 Personal history of antineoplastic chemotherapy; Z92.3 Personal history of irradiation; Z93.1 Gastrostomy status; Z20.822 Contact with and (suspected) exposure to COVID-19; R94.5 Abnormal results of liver function studies; Z90.49 Acquired absence of other specified parts of digestive tract; M19.90 Unspecified osteoarthritis, unspecified site; R00.0 Tachycardia, unspecified; Z91.040 Latex allergy status; Z80.41 Family history of malignant neoplasm of ovary
CPT/HCPCS: 36415; 70450; 70491; 70543; 70553; 71046; 71250; 72125; 74176; 80053; 80061; 80202; 81001; 82533; 82565; 82607; 82746; 83605; 83921; 84145; 84443; 85025; 86140; 87040; 87635; 93306; 95816; 96361; 96365; 96366; 96367; 99285

== ENCOUNTER 2020-03-02 14:38 | Inpatient (IN) | payer MEDICARE, OTHER ==
--- NOTE | 2020-03-02 15:12 | ED ---
General Adult HPI - General Chief complaint: Weakness Stated complaint: Weakness Time Seen by Provider: 03/02/20 15:05 Source: patient, family, RN notes reviewed Mode of arrival: ambulatory Limitations: no limitations - History of Present Illness Initial comments: Patient is a pleasant 65-year-old male presenting to the emergency Department with generalized weakness and fatigue. Symptoms have been occurring for several weeks now. Patient has increased fatigue. Patient is not tolerating oral intake anymore. Patient does have a PEG tube supplement. No cough or dyspnea. No abdominal pain. No dysuria. Patient is still having intermittent fevers. Patient is on therapy for history of throat cancer. Patient has had some swelling of his throat and has had a recent scope done this past week. Patient was sent over by Dr. Gardner. - Related Data Home Medications Medication Instructions Recorded Confirmed PARoxetine HCL [Paxil] 10 mg PEG/G-TUBE HS 08/28/19 03/02/20 Tamsulosin HCl [Flomax] 0.4 mg PEG/G-TUBE DAILY 10/22/19 03/02/20 Nivolumab [Opdivo] 100 mg IV QMONTHLY 10/27/19 03/02/20 ALPRAZolam [Xanax] 0.5 mg PEG/G-TUBE BID 02/16/20 03/02/20 Omeprazole 20 mg PEG/G-TUBE BID 02/16/20 03/02/20 Acetaminophen Tab [Tylenol] 650 mg PEG/G-TUBE Q4H PRN 03/02/20 03/02/20 Aspirin 81 mg PEG/G-TUBE DAILY 03/02/20 03/02/20 Atorvastatin [Lipitor] 10 mg PEG/G-TUBE HS 03/02/20 03/02/20 Allergies Allergy/AdvReac Type Severity Reaction Status Date / Time adhesive tape Allergy Rash/Hives Verified 03/02/20 15:38 latex Allergy Rash/Hives Verified 03/02/20 15:38 Review of Systems ROS Statement: Those systems with pertinent positive or pertinent negative responses have been documented in the HPI. ROS Other: All systems not noted in ROS Statement are negative. Constitutional: Reports: fever, chills Eyes: Denies: eye pain ENT: Denies: ear pain Respiratory: Denies: cough Cardiovascular: Denies: chest pain Endocrine: Reports: fatigue Gastrointestinal: Denies: abdominal pain Genitourinary: Denies: dysuria Musculoskeletal: Denies: back pain Skin: Denies: rash Neurological: Denies: headache Past Medical History Past Medical History: Cancer, Osteoarthritis (OA) Additional Past Medical History / Comment(s): Esophageal cancer with trach, PEG tube x2 years History of Any Multi-Drug Resistant Organisms: None Reported Past Surgical History: Bowel Resection Additional Past Surgical History / Comment(s): Tracheostomy, and PEG tube, colostomy reversed December (2018) Past Anesthesia/Blood Transfusion Reactions: No Reported Reaction Past Psychological History: Anxiety, Depression Smoking Status: Former smoker Past Alcohol Use History: None Reported Past Drug Use History: None Reported - Past Family History Father Family Medical History: Cancer Additional Family Medical History / Comment(s): prostate cancer that spread to the brain Mother Family Medical History: Cancer Additional Family Medical History / Comment(s): ovarian cancer Sister(s) Family Medical History: Cancer Additional Family Medical History / Comment(s): breast cancer General Exam Limitations: no limitations General appearance: alert, in no apparent distress Head exam: Present: atraumatic, normocephalic Eye exam: Present: normal appearance, PERRL ENT exam: Present: normal exam Neck exam: Absent: tenderness, meningismus Respiratory exam: Present: normal lung sounds bilaterally Cardiovascular Exam: Present: regular rate, normal rhythm GI/Abdominal exam: Present: soft. Absent: tenderness Extremities exam: Present: normal inspection Neurological exam: Present: alert. Absent: motor sensory deficit Psychiatric exam: Present: normal affect, normal mood Skin exam: Present: normal color Course Vital Signs 03/02/20 14:45 Temperature 98.9 F Pulse Rate 79 Respiratory 18 Rate Blood Pressure 103/62 O2 Sat by Pulse 93 L Oximetry EKG Findings - EKG Comments: EKG Findings:: Normal sinus rhythm and 94. VT 154. QRS 78. QT 348. QTC 435. Normal axis. Normal QRS. No acute ST change. Medical Decision Making - Medical Decision Making Patient reevaluated and updated. Case was discussed with Dr. Kaufman, who will admit his patient with consult with Dr. Barron and Dr. chavis from infectious disease - Lab Data Result diagrams: 03/02/20 15:29 03/02/20 15:29 Lab Results 03/02/20 03/02/20 03/02/20 Range/Units 15:29 15:29 15:29 WBC 3.3 L (3.8-10.6) k/uL RBC 3.84 L (4.30-5.90) m/uL Hgb 11.7 L (13.0-17.5) gm/dL Hct 35.4 L (39.0-53.0) % MCV 92.2 (80.0-100.0) fL MCH 30.6 (25.0-35.0) pg MCHC 33.2 (31.0-37.0) g/dL RDW 13.7 (11.5-15.5) % Plt Count 254 (150-450) k/uL MPV 7.9 Neutrophils % 77 % Lymphocytes % 11 % Monocytes % 4 % Eosinophils % 5 % Basophils % 0 % Neutrophils # 2.5 (1.3-7.7) k/uL Lymphocytes # 0.3 L (1.0-4.8) k/uL Monocytes # 0.1 (0-1.0) k/uL Eosinophils # 0.2 (0-0.7) k/uL Basophils # 0.0 (0-0.2) k/uL PT 10.0 (9.0-12.0) sec INR 0.9 (<1.2) APTT 20.9 L (22.0-30.0) sec Sodium (137-145) mmol/L Potassium (3.5-5.1) mmol/L Chloride (98-107) mmol/L Carbon Dioxide (22-30) mmol/L Anion Gap mmol/L BUN (9-20) mg/dL Creatinine (0.66-1.25) mg/dL Est GFR (CKD-EPI)AfAm (>60 ml/min/1.73 sqM) Est GFR (CKD-EPI)NonAf (>60 ml/min/1.73 sqM) Glucose (74-99) mg/dL Plasma Lactic Acid Sherman (0.7-2.0) mmol/L Calcium (8.4-10.2) mg/dL Total Bilirubin (0.2-1.3) mg/dL AST (17-59) U/L ALT (4-49) U/L Alkaline Phosphatase (38-126) U/L Total Protein (6.3-8.2) g/dL Albumin (3.5-5.0) g/dL Coronavirus (PCR) Not Detected (Not Detectd) 03/02/20 03/02/20 Range/Units 15:29 15:29 WBC (3.8-10.6) k/uL RBC (4.30-5.90) m/uL Hgb (13.0-17.5) gm/dL Hct (39.0-53.0) % MCV (80.0-100.0) fL MCH (25.0-35.0) pg MCHC (31.0-37.0) g/dL RDW (11.5-15.5) % Plt Count (150-450) k/uL MPV Neutrophils % % Lymphocytes % % Monocytes % % Eosinophils % % Basophils % % Neutrophils # (1.3-7.7) k/uL Lymphocytes # (1.0-4.8) k/uL Monocytes # (0-1.0) k/uL Eosinophils # (0-0.7) k/uL Basophils # (0-0.2) k/uL PT (9.0-12.0) sec INR (<1.2) APTT (22.0-30.0) sec Sodium 133 L (137-145) mmol/L Potassium 4.2 (3.5-5.1) mmol/L Chloride 98 (98-107) mmol/L Carbon Dioxide 27 (22-30) mmol/L Anion Gap 8 mmol/L BUN 16 (9-20) mg/dL Creatinine 0.63 L (0.66-1.25) mg/dL Est GFR (CKD-EPI)AfAm >90 (>60 ml/min/1.73 sqM) Est GFR (CKD-EPI)NonAf >90 (>60 ml/min/1.73 sqM) Glucose 92 (74-99) mg/dL Plasma Lactic Acid Sherman 2.4 H* (0.7-2.0) mmol/L Calcium 8.7 (8.4-10.2) mg/dL Total Bilirubin 1.0 (0.2-1.3) mg/dL AST 63 H (17-59) U/L ALT 78 H (4-49) U/L Alkaline Phosphatase 96 (38-126) U/L Total Protein 6.7 (6.3-8.2) g/dL Albumin 3.3 L (3.5-5.0) g/dL Coronavirus (PCR) (Not Detectd) - Radiology Data Radiology results: image reviewed (Chest x-ray does have some changes consistent with interstitial lung disease.) Disposition Clinical Impression: Fever, Dehydration Disposition: ADMITTED IP TO THIS HOSP Is patient prescribed a controlled substance at d/c from ED?: No Referrals: Rahpael Kaufman MD [Primary Care Provider] - 1-2 days Decision Time: 16:29
[2020-03-02] MEDS: SODIUM CHLORIDE 0.9% 1,000 ML IV SCH (15:34)
[2020-03-02 15:37] LABS: Basophils % (A) 0 %; Eosinophils # (A) 0.2 k/uL (0-0.7); Eosinophils % (A) 5 %; HCT 35.4 % (39.0-53.0); HGB 11.7 gm/dL (13.0-17.5); Lymphocytes # (A) 0.3 k/uL (1.0-4.8); Lymphocytes % (A) 11 %; MCH 30.6 pg (25.0-35.0); MCHC 33.2 g/dL (31.0-37.0); MCV 92.2 fL (80.0-100.0); Mean Platelet Volume 7.9; Monocytes # (A) 0.1 k/uL (0-1.0); Monocytes % (A) 4 %; Neutrophils # (A) 2.5 k/uL (1.3-7.7); Neutrophils % (A) 77 %; Platelet Count 254 k/uL (150-450); RBC 3.84 m/uL (4.30-5.90); RDW 13.7 % (11.5-15.5); WBC 3.3 k/uL (3.8-10.6)
[2020-03-02 15:45] LABS: INR 0.9 (<1.2)
[2020-03-02 15:49] LABS: ALT 78 U/L (4-49); AST 63 U/L (17-59); African American GFR (CKD) >90 (>60 ml/min/1.73 sqM); Albumin 3.3 g/dL (3.5-5.0); Alkaline Phosphatase 96 U/L (38-126); Anion Gap 8 mmol/L; Blood Urea Nitrogen 16 mg/dL (9-20); Calcium 8.7 mg/dL (8.4-10.2); Carbon Dioxide 27 mmol/L (22-30); Chloride 98 mmol/L (98-107); Glucose 92 mg/dL (74-99); Non-African American GFR(CKD) >90 (>60 ml/min/1.73 sqM); Potassium 4.2 mmol/L (3.5-5.1); Sodium 133 mmol/L (137-145); Total Protein 6.7 g/dL (6.3-8.2)
--- NOTE | 2020-03-02 15:55 | XR ---
EXAMINATION TYPE: XR chest 2V DATE OF EXAM: 03/02/2020 COMPARISON: Prior chest x-ray 02/16/2020 HISTORY: Fever and weakness TECHNIQUE: Frontal and lateral views of the chest are obtained. FINDINGS: There is no focal air space opacity, pleural effusion, or pneumothorax seen. The cardiac silhouette size is within normal limits. Apical pleural thickening on the right is again noted. There is some mild prominence of interstitium. Aorta is dense, there are coronary artery calcifications. The osseous structures are intact. IMPRESSION: No acute cardiopulmonary process, stable findings of interstitial lung disease, coronary artery disease.
[2020-03-02 16:00] LABS: Partial Thromboplastin Time 20.9 sec (22.0-30.0)
[2020-03-02 16:44] LABS: Appearance,Urine Clear (Clear); Bilirubin,Urine Negative (Negative); Blood,Urine Negative (Negative); Color,Urine Yellow; Glucose,Urine (UA) Negative (Negative); Ketones,Urine Negative (Negative); Leukocyte Esterase,Urine Negative (Negative); Nitrite,Urine Negative (Negative); PH, Urine 6.5 (5.0-8.0); Protein,Urine 1+ (Negative); RBC,Urine <1 /hpf (0-5); Specific Gravity,Urine 1.017 (1.001-1.035); Squamous Epithelial Cell,Urine <1 /hpf (0-4); Urobilinogen,Urine <2.0 mg/dL (<2.0); WBC,Urine 1 /hpf (0-5)
[2020-03-02] MEDS ORDERED: NALOXONE 0.4 MG/ML 1 ML VIAL IV PRN (17:01)
[2020-03-02] MEDS ORDERED: IBUPROFEN 400 MG TAB PO PRN (17:01)
[2020-03-02] MEDS ORDERED: ACETAMINOPHEN TAB 325 MG TAB PO PRN (17:01)
--- NOTE | 2020-03-02 21:58 | HP ---
HISTORY AND PHYSICAL This patient is a 65-year-old white male who came into the hospital with fatigue, weakness and fevers at home. Since he left the hospital last week he has had significant neck swelling with redness in his anterior neck. He states after some kind of nasal was done, he started swelling in his neck. He has a large amount of swelling on his anterior neck. We have to do a CT scan to rule out abscess. I suspect his fever is coming from cellulitis of his neck. He has a history of throat cancer, which apparently is in remission, and he had a recent scope done this past week. Dr. Barron sent him here for admission due to fevers and possible sepsis. HOME MEDICINES: 1. Paxil 10 mg per PEG tube. 2. Flomax 0.4 mg per PEG tube. 3. Nivolumab (Opdivo) 100 IV monthly. 4. mg via PEG tube b.i.d. 5. Aspirin 81 mg daily. 6. Lipitor 10 mg PEG tube daily. ALLERGIES: ADHESIVE TAPE, LATEX. REVIEW OF SYSTEMS: Fourteen-point review of systems except for mentioned in HPI is negative. PAST MEDICAL HISTORY: Esophageal throat cancer, adenocarcinoma, osteoarthritis, PEG tube for esophageal dysmobility, bowel resection, tracheostomy, colostomy reversal anxiety, depression, former smoker. FAMILY HISTORY: Father with cancer, prostate. Mother with cancer, ovaries. Sister with cancer of the breast. PHYSICAL EXAMINATION: He looks weak, disheveled. Integument shows severe swelling in his anterior neck, circumferential, like a neck scarf pattern with a large amount of soft tissue swelling with redness throughout the anterior neck. CARDIOVASCULAR: S1, S2. LUNGS: Clear. GI: Soft. HEMATOLOGY: Negative Homans. PSYCH: Fair mood and affect. Integument otherwise normal. Vascular is normal. Dorsalis pedis, posterior tibial. EKG sinus rhythm. Consult Infectious Disease. His white count is low at 3.3, hemoglobin 11.7, sodium 133, BUN 16, creatinine 0.63. Creatinine 0.63. Lactic acid is high at 2.4. ASSESSMENT: 1. Lactic acidosis. 2. Cellulitis and febrile infection most likely coming from neck cellulitis. 3. Dehydration. 4. History of esophageal cancer. Started on Unasyn. CT scan of his neck without contrast. Wait for recommendations from Infectious Disease. Lactic acidosis will be treated with fluid rehydration. Elevated liver enzymes secondary to possible dehydration or liver inflammation of unclear etiology. May be due to cancer. Please see further orders. MMODL / IJN: [id number] /
[2020-03-02] MEDS: ATORVASTATIN 10 MG TAB PEG/G-TUBE SCH (22:42)
[2020-03-02] MEDS: PANTOPRAZOLE SODIUM 40 MG GRANULE PKT PEG/G-TUBE SCH (22:42)
[2020-03-02] MEDS: PARoxetine 10 MG TAB PEG/G-TUBE SCH (22:42)
[2020-03-02] MEDS: ALPRAZolam 0.5 MG TAB PEG/G-TUBE SCH (22:42)
--- NOTE | 2020-03-02 23:08 | CT ---
EXAMINATION TYPE: CT neck chest without con DATE OF EXAM: 03/02/2020 COMPARISON: HISTORY: Anterior neck swelling x approximately [address] DLP: 806.3 mGycm Automated exposure control for dose reduction was used. Images were obtained without contrast from the level of the orbits to the diaphragm. The lungs are clear of consolidation. There is no evidence of a pulmonary mass. There is no pleural e ffusion. There is no pericardial effusion. Heart size is fairly normal. There is some mild coronary a rtery calcification. There is no mediastinal adenopathy. Thoracic aorta shows no sign of aneurysm. Th ere are no hilar masses. There is minimal subsegmental atelectasis at the lung bases. The thoracic spine is intact. There is no compression fracture. There is spurring in the mid and lowe r thoracic spine. The sternum is intact. Cervical vertebra show multilevel mild spondylotic changes. There is no compression fracture. There is prevertebral soft tissue swelling at the C1 and C2 and C3 level. Swelling measures up to 1 c m in thickness. There is some mild effacement of the hypopharyngeal airway. The epiglottis appears no rmal. Adenoids are within normal limits. The tongue is intact. Thyroid cartilage appears normal. Thyroid gland is intact. There is some asymmetric enlargement of th e left thyroid lobe compared to the right. There are a few anterior triangle cervical lymph nodes onur t measure up to 1 cm. There is no significant cervical adenopathy. There is fatty replacement of the parotid glands. There is some atrophy of the submandibular salivary glands. There is some soft tissue swelling around the glottis at the C4 and C5 level. There is narro wing of the airway. There is mild subcutaneous edema of the anterior neck. IMPRESSION: Mild subsegmental atelectasis and fibrotic changes in the lungs. No suspicious pulmonary mass. Mild a therosclerotic vascular disease. Mild prevertebral soft tissue swelling and also circumferential subglottic and glottic swelling consi stent with edema and inflammatory process. Developing retropharyngeal abscess is possible. Follow-up recommended. There is subcutaneous edema. Narrowing of the airway. Tumor is not excluded.
[2020-03-03] MEDS: AMPICILLIN-SULBACTAM 1.5 GM in SODIUM CHLORIDE 0.9% 50 ML IVPB SCH ×3 (00:18→15:24)
[2020-03-03] MEDS: SODIUM CHLORIDE 0.9% 1,000 ML IV SCH ×3 (00:21→11:57)
[2020-03-03 06:39] LABS: Basophils % (A) 0 %; Eosinophils # (A) 0.1 k/uL (0-0.7); Eosinophils % (A) 4 %; HCT 28.5 % (39.0-53.0); Lymphocytes # (A) 0.3 k/uL (1.0-4.8); Lymphocytes % (A) 10 %; MCH 31.7 pg (25.0-35.0); MCHC 34.3 g/dL (31.0-37.0); MCV 92.4 fL (80.0-100.0); Monocytes # (A) 0.2 k/uL (0-1.0); Monocytes % (A) 6 %; Neutrophils # (A) 2.3 k/uL (1.3-7.7); Neutrophils % (A) 76 %; Platelet Count 235 k/uL (150-450); RBC 3.09 m/uL (4.30-5.90); RDW 13.4 % (11.5-15.5)
[2020-03-03 06:56] LABS: HGB 9.8 gm/dL (13.0-17.5)
[2020-03-03] MEDS: PANTOPRAZOLE SODIUM 40 MG GRANULE PKT PEG/G-TUBE SCH ×2 (08:19→21:51)
[2020-03-03] MEDS: TAMSULOSIN 0.4 MG CAP.ER.24H PO SCH (08:19)
[2020-03-03] MEDS: ALPRAZolam 0.5 MG TAB PEG/G-TUBE SCH ×2 (08:19→21:51)
[2020-03-03] MEDS: ASPIRIN 81 MG PEG/G-TUBE SCH (08:19)
[2020-03-03] MEDS ORDERED: PANTOPRAZOLE 40 MG/10 ML VIAL IV SCH (09:00)
--- NOTE | 2020-03-03 10:24 | P.CONS ---
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 tobacco user (51-musg-opin smoker quit 2018. Patient has a PEG tube for nutrition and does not take oral intake which is chronic. Patient was seen during recent hospitalization by oncology with concern for appearance of progression on CAT scan soft tissue of the neck and patient was to have outpatient PET scan done and ENT to assess. Patient was discharged on February 20. Patient presents complaining of fever of 100.6 at home. He feels that he has not any and proved from when he was discharged and admitted last. He denies having any neck pain. He denies any nausea, vomiting. No abdominal pain. He denies any chest pain, shortness of breath or cough. Patient has been afebrile, heart rate 92, blood pressure 100/62 and pulse ox 96% on room air. CAT scan of the neck reveals mild subsegmental atelectasis and fibrotic changes in the lungs. No suspicious pulmonary mass. Mild atherosclerotic vascular disease. Mild prevertebral soft tissue swelling and also circumferential subglottic and glottic swelling consistent with edema and inflammatory process. Developing retropharyngeal abscess is possible. There is subcutaneous edema. Narrowing of the airway. Tumor is not excluded. Patient states that he last saw ENT and [place] about a year ago. REVIEW OF SYSTEMS Constitutional: Reports fever, no chills, no night sweats. No weight change. No weakness, fatigue or lethargy. EENT: No headache. No nasal drainage or congestion. No epistaxis. No sore throat. Lungs: No shortness of breath, cough, no sputum production. No wheezing. Cardiovascular: No chest pain, no lower extremity edema. No lightheadedness or dizziness. No syncopal episodes. Abdominal: No abdominal pain. No nausea, vomiting. No diarrhea. No constipation. No loss of appetite. Genitourinary: No dysuria, increased frequency, urgency. No urinary retention. Musculoskeletal: No myalgias. No muscle weakness. Integumentary: No wounds, no lesions. No rash or pruritus. Neurologic: No aphasia. No facial droop. No change in mentation. Endocrine: No abnormal blood sugars. PHYSICAL EXAMINATION Gen: This is a 65-year-old male. He is resting but appears to be comfortable. HEENT: Head is atraumatic, normocephalic. Pupils equal, round. Sclerae is anicteric. NECK: Supple. No JVD. No lymphadenopathy. No thyromegaly. LUNGS: Clear to auscultation. No wheezes or rhonchi. No intercostal retractions. HEART: Regular rate and rhythm. No murmur. ABDOMEN: Soft. Bowel sounds are present. No masses. No tenderness. EXTREMITIES: No pedal edema. No calf tenderness. NEUROLOGICAL: Patient is awake, alert and oriented x3. Cranial nerves 2 through 12 are grossly intact. 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 PLAN Continue Unasyn 1.5 g every 8 hours Consult with ENT Further recommendations based on patient's progress. Thank you kindly for this consultation. The above dictated assessment and findings were discussed with Dr. Smith. The impression and plan of care have been directed as dictated. Angela Sow nurse practitioner acting as scribe for Dr. Smith. Past Medical History Past Medical History: Cancer, Osteoarthritis (OA) Additional Past Medical History / Comment(s): Esophageal cancer with trach, PEG tube x2 years History of Any Multi-Drug Resistant Organisms: None Reported Past Surgical History: Bowel Resection Additional Past Surgical History / Comment(s): Tracheostomy, and PEG tube, co lostomy reversed December (2018) Past Anesthesia/Blood Transfusion Reactions: No Reported Reaction Smoking Status: Former smoker - Past Family History Father Family Medical History: Cancer Additional Family Medical History / Comment(s): prostate cancer that spread to t he brain Mother Family Medical History: Cancer Additional Family Medical History / Comment(s): ovarian cancer Sister(s) Family Medical History: Cancer Additional Family Medical History / Comment(s): breast cancer Medications and Allergies Home Medications Medication Instructions Recorded Confirmed Type PARoxetine HCL [Paxil] 10 mg PEG/G-TUBE HS 08/28/19 03/02/20 History Tamsulosin HCl [Flomax] 0.4 mg PEG/G-TUBE DAILY 10/22/19 03/02/20 History Nivolumab [Opdivo] 100 mg IV QMONTHLY 10/27/19 03/02/20 History ALPRAZolam [Xanax] 0.5 mg PEG/G-TUBE BID 02/16/20 03/02/20 History Omeprazole 20 mg PEG/G-TUBE BID 02/16/20 03/02/20 History Acetaminophen Tab [Tylenol] 650 mg PEG/G-TUBE Q4H PRN 03/02/20 03/02/20 History Aspirin 81 mg PEG/G-TUBE DAILY 03/02/20 03/02/20 History Atorvastatin [Lipitor] 10 mg PEG/G-TUBE HS 03/02/20 03/02/20 History Allergies Allergy/AdvReac Type Severity Reaction Status Date / Time adhesive tape Allergy Rash/Hives Verified 03/02/20 15:38 latex Allergy Rash/Hives Verified 03/02/20 15:38 Physical Exam Vitals: Vital Signs Temp Pulse Pulse Resp BP BP Pulse Ox 03/03/20 05:58 98.3 F 92 20 100/62 96 03/02/20 19:30 98.6 F 96 18 124/76 96 03/02/20 18:15 94 16 115/77 97 03/02/20 17:12 92 16 114/84 97 03/02/20 14:45 98.9 F 79 18 103/62 93 L Intake and Output 03/02/20 03/03/20 03/03/20 22:59 06:59 14:59 Intake Total 0 Balance 0 Intake: Oral 0 Other: # Voids 2 Weight 78.925 kg Results CBC & Chem 7: 03/03/20 04:35 03/02/20 15:29 Labs: Abnormal Lab Results - Last 24 Hours (Table) 03/02/20 03/02/20 03/02/20 Range/Units 15:29 15:29 15:29 WBC 3.3 L (3.8-10.6) k/uL RBC 3.84 L (4.30-5.90) m/uL Hgb 11.7 L (13.0-17.5) gm/dL Hct 35.4 L (39.0-53.0) % Lymphocytes # 0.3 L (1.0-4.8) k/uL APTT 20.9 L (22.0-30.0) sec Sodium 133 L (137-145) mmol/L Creatinine 0.63 L (0.66-1.25) mg/dL Plasma Lactic Acid Sherman (0.7-2.0) mmol/L AST 63 H (17-59) U/L ALT 78 H (4-49) U/L Albumin 3.3 L (3.5-5.0) g/dL Urine Protein (Negative) 03/02/20 03/02/20 03/03/20 Range/Units 15:29 16:38 04:35 WBC 3.0 L (3.8-10.6) k/uL RBC 3.09 L (4.30-5.90) m/uL Hgb 9.8 L D (13.0-17.5) gm/dL Hct 28.5 L (39.0-53.0) % Lymphocytes # 0.3 L (1.0-4.8) k/uL APTT (22.0-30.0) sec Sodium (137-145) mmol/L Creatinine (0.66-1.25) mg/dL Plasma Lactic Acid Sherman 2.4 H* (0.7-2.0) mmol/L AST (17-59) U/L ALT (4-49) U/L Albumin (3.5-5.0) g/dL Urine Protein 1+ H (Negative)
[2020-03-03 10:40] LABS: African American GFR (CKD) 122.3 (60.0-200.0); Albumin 3.1 g/dL (3.80-4.90); Albumin/Globulin Ratio 1.55 (1.60-3.17); Anion Gap 9.2 mmol/L (4.00-12.00); BUN/Creat Ratio 23.33 Ratio (12.00-20.00); Calcium 7.9 mg/dL (8.7-10.3); Carbon Dioxide 25.8 mmol/L (21.6-31.8); Non-African American GFR(CKD) 105.5 (60.0-200.0); Total Bilirubin 0.8 mg/dL (0.2-1.2); Total Protein 5.1 g/dL (6.2-8.2)
[2020-03-03] MEDS: CLOTRIMAZOLE TROCHE 10 MG TROCHE MUCOUS MEM SCH ×3 (11:50→22:19)
[2020-03-03] MEDS: FLUCONAZOLE IN NACL,ISO-OSM 100 MG in SALINE 1 50ML.BAG IVPB SCH (11:50)
--- NOTE | 2020-03-03 14:33 | P.CONS ---
History of Present Illness - Reason for Consult Consult date: 03/03/20 Head/Neck malignancy Requesting physician: Delon Treviño - Chief Complaint weakenss - History of Present Illness Mr. Dotson is a pleasant male pt of Dr. Barron seen in consult at [facility] 11/19/17 when he presented with swelling in the right neck, progressive x 1 month. Associated changes in speech, feeling of nasal congestion, dysphagia, audible changes in breath sounds. The mass was hard but not painful. CT neck showed a 4 x 3 cm mass involving the right tonsil, extending inferiorly into the hypopharynx on the right. The downward extension measured approx 6 cm, mass crossed the midline, felt to involve rt anterior triangle cervical lymph nodes. CT CAP was negative other than a 1.5 x 2 cm focus in the liver, which was indeterminate. The patient was seen by various specialties, including ENT, GI, and Pulmonary. He was felt to be in danger of imminent airway compromise and underwent tracheostomy. As he was having significant difficulty in swallowing already, he also had an EGD with PEG placement. Biopsies on 11/22/17, from the pharyngeal mass, as well as FNA of one of the right-sided neck nodes. 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 Staging PET 12/03/17, very large hypermetabolic fungating mass extending along the lower nasopharynx, involving the soft palate, and the region of the palatine tonsils with extension into the right base of tongue and the right parapharyngeal space. The lower right nasopharyngeal airway was obliterated. The mass measured 6.6 cm by 5.6 cm. 1.3 cm nodularity in the right parapharyngeal space was noted showing intense uptake with SUV of 8.4, while SUV in the mass was 22.2. There was large, dominant soft tissue mass in the right level IIA measuring 4 cm with max SUV 11. A couple of submandibular nodes were involved measuring 1.7 cm with SUV of 7.1 There was evidence of right cervical lymph node involvement, with level 2/3 lymph nodes measuring 1.9 cm, SUV 8.4, level IV lymph node measuring 1.7 cm, SUV 9.2. Inflammatory uptake was noted around the tracheostomy, and PEG tube site. No evidence of distant metastatic disease. He was to start chemo but, opted for hospice, the impact of the diagnosis and treatment plan psychologically were not manageable for him. Late 01/29 he and his family decided to come off hospice and seek active treatm ent. Restaging PET done. This showed additional disease in the rt Cervical area, left upper cervical node. The choice of chemo regimen was changed to Carbo/Taxol/Erbitux due to decline in his PS. He completed 3 cycles 05/13/18, with an excellent response, clinically and by PET. He completed chemo/XRT 07/31. Tracheostomy was removed in 08/30. PET 09/30 showed improved uptake in the temi area, with decrease in soft tissue at the primary site though uptake was slightly increased. He was then seen by Dr Grayson, with multiple biopsies. Per the pt, one area was suspicious, but felt to be most likely negative on second opinion. PET from 01/11/19 showed further decrease in uptake in the base of the tongue and temi areas but, new uptake with sclerosis in transverse process of T9 and the rt hip. MRI did not show suspicious findings in the thoracic spine but, the lesions in the right hip area were suspicious. Referred for a bone biopsy which he had on 03/12/19 from [facility]. Path positive for squamous cell carcinoma consistent with metastatic head and neck primary. Had XRT to the T9 lesion, completed 04/07/19. He started 2nd line systemic therapy with IO Opdivo on 04/18/19. He has been on monthly infusions since, s/p 12 cycles, PET scans have showed no disease progression. At home, home care nurse called ofc to report low grade fever, rec was to have pt come to hospital. Pancultures collected, empiric abx ordered. Pt states he does not take in anything orally, he uses PEG for all intake, denies odynophagia, he manages his secretions, neck is swollen with mild discomfort when palpated, he had all his teeth extracted in Nov. denies any oral pain, ear pain, IMANI, new onset cough, abd pain, distension, nausea, acute changes in bowel or bladder habits. Being tested for flu and covid. Review of Systems 14 point ROS is negative except as stated in HPI Past Medical History Past Medical History: Cancer, Osteoarthritis (OA) Additional Past Medical History / Comment(s): Esophageal cancer with trach, PEG tube x2 years History of Any Multi-Drug Resistant Organisms: None Reported Past Surgical History: Bowel Resection Additional Past Surgical History / Comment(s): Tracheostomy, and PEG tube, colostomy reversed December (2018) Past Anesthesia/Blood Transfusion Reactions: No Reported Reaction Smoking Status: Former smoker - Past Family History Father Family Medical History: Cancer Additional Family Medical History / Comment(s): prostate cancer that spread to the brain Mother Family Medical History: Cancer Additional Family Medical History / Comment(s): ovarian cancer Sister(s) Family Medical History: Cancer Additional Family Medical History / Comment(s): breast cancer Medications and Allergies Home Medications Medication Instructions Recorded Confirmed Type PARoxetine HCL [Paxil] 10 mg PEG/G-TUBE HS 08/28/19 03/02/20 History Tamsulosin HCl [Flomax] 0.4 mg PEG/G-TUBE DAILY 10/22/19 03/02/20 History Nivolumab [Opdivo] 100 mg IV QMONTHLY 10/27/19 03/02/20 History ALPRAZolam [Xanax] 0.5 mg PEG/G-TUBE BID 02/16/20 03/02/20 History Omeprazole 20 mg PEG/G-TUBE BID 02/16/20 03/02/20 History Acetaminophen Tab [Tylenol] 650 mg PEG/G-TUBE Q4H PRN 03/02/20 03/02/20 History Aspirin 81 mg PEG/G-TUBE DAILY 03/02/20 03/02/20 History Atorvastatin [Lipitor] 10 mg PEG/G-TUBE HS 03/02/20 03/02/20 History Allergies Allergy/AdvReac Type Severity Reaction Status Date / Time adhesive tape Allergy Rash/Hives Verified 03/02/20 15:38 latex Allergy Rash/Hives Verified 03/02/20 15:38 Physical Exam Vitals: Vital Signs Temp Pulse Pulse Resp BP BP Pulse Ox 03/03/20 05:58 98.3 F 92 20 100/62 96 03/02/20 19:30 98.6 F 96 18 124/76 96 03/02/20 18:15 94 16 115/77 97 03/02/20 17:12 92 16 114/84 97 03/02/20 14:45 98.9 F 79 18 103/62 93 L Intake and Output 03/02/20 03/03/20 03/03/20 22:59 06:59 14:59 Intake Total 0 Balance 0 Intake: Oral 0 Other: # Voids 2 Weight 78.925 kg - Constitutional General appearance: average body habitus, cooperative, no acute distress - EENT Eyes: anicteric sclerae, edentulous, EOMI ENT: hearing grossly normal, pharyngeal erythema, thrush (severe) - Neck bilateral anterior neck swelling visible, mild redness, slightly warm to touch, no pain with palpation of the neck, trach scar, tongue deviates to the right, no palpable LN in cervical, supraclavicular or axilla - Respiratory Respiratory: bilateral: CTA - Cardiovascular Rhythm: regular Heart sounds: normal: S1, S2 Abnormal Heart Sounds: no systolic murmur, no diastolic murmur, no rub, no S3 Gallop, no S4 Gallop, no click, no other leg Peripheral Edema: bilateral: None - Gastrointestinal PEG tube General gastrointestinal: no absent bowel sounds, no decreased bowel sounds, no distended, no hepatomegaly, no hyperactive bowel sounds, normal bowel sounds, no organomegaly, no rigid, no scaphoid, soft, no splenomegaly, no tenderness, no umbilical hernia, no ventral hernia - Integumentary Integumentary: no calor, no cellulitis, no cyanotic, no decreased turgor, no flushed, no jaundiced, normal, pale, no rash, no ulcer - Neurologic Neurologic: CNII-XII intact - Musculoskeletal Musculoskeletal: strength equal bilaterally - Psychiatric Psychiatric: A&O x's 3, appropriate affect, intact judgment & insight Results CBC & Chem 7: 03/03/20 04:35 03/03/20 04:35 Labs: Abnormal Lab Results - Last 24 Hours (Table) 03/02/20 03/02/20 03/02/20 Range/Units 15:29 15:29 15:29 WBC 3.3 L (3.8-10.6) k/uL RBC 3.84 L (4.30-5.90) m/uL Hgb 11.7 L (13.0-17.5) gm/dL Hct 35.4 L (39.0-53.0) % Lymphocytes # 0.3 L (1.0-4.8) k/uL APTT 20.9 L (22.0-30.0) sec Sodium 133 L (137-145) mmol/L Creatinine 0.63 L (0.66-1.25) mg/dL Plasma Lactic Acid Sherman (0.7-2.0) mmol/L AST 63 H (17-59) U/L ALT 78 H (4-49) U/L Albumin 3.3 L (3.5-5.0) g/dL Urine Protein (Negative) 03/02/20 03/02/20 03/03/20 Range/Units 15:29 16:38 04:35 WBC 3.0 L (3.8-10.6) k/uL RBC 3.09 L (4.30-5.90) m/uL Hgb 9.8 L D (13.0-17.5) gm/dL Hct 28.5 L (39.0-53.0) % Lymphocytes # 0.3 L (1.0-4.8) k/uL APTT (22.0-30.0) sec Sodium (137-145) mmol/L Creatinine (0.66-1.25) mg/dL Plasma Lactic Acid Sherman 2.4 H* (0.7-2.0) mmol/L AST (17-59) U/L ALT (4-49) U/L Albumin (3.5-5.0) g/dL Urine Protein 1+ H (Negative) Comments: CT neck report reviewed Chest x-ray: report reviewed CT scan - chest: report reviewed Assessment and Plan (1) Fever, unknown origin Narrative/Plan: ID consulted, pancultures pending, empiric abx. Neck possible source? Current Visit: Yes Status: Acute Priority: High Code(s): R50.9 - FEVER, UNSPECIFIED SNOMED Code(s): 0638810 (2) Thrush Narrative/Plan: Pt can manage secretions-clotrimazole arlet, IV diflucan. Salt and soda rinse Current Visit: Yes Status: Acute Priority: High Code(s): B37.0 - CANDIDAL STOMATITIS SNOMED Code(s): 79582850 (3) Squamous cell carcinoma Narrative/Plan: Pt has been on Opdivo since early last year and doing well. CT of neck and chest reports prevertebral swelling, epiglottis and glottis swelling, SQ edema in anterior neck. Treatment restaging PET scan is due, pending treatment of suspected infection. Current Visit: No Status: Chronic Priority: Medium Code(s): C44.92 - SQUAMOUS CELL CARCINOMA OF SKIN, UNSPECIFIED SNOMED Code(s): 386992546
[2020-03-03] MEDS: SALT AND SODA MOUTHWASH 1,000 ML PO SCH ×3 (15:24→21:50)
--- NOTE | 2020-03-03 20:58 | P.GSCN ---
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 Treatment was recommended initially but the patient declined treatment and elected hospice care. Many months later he changed his mind and treatment was instituted. He underwent radiation therapy along with chemotherapy. Recent PET scan demonstrates increased uptake in the mandible and still has positive findings of the head and neck region. He has been seeing a Dr. Earl and Dr. Earl has done several biopsies I'm unaware of the results. He has no stridor. His dysphagia has been long-standing any takes all nutrients through a feeding tube. He denies any thr oat pain. He was admitted because of fever of unknown origin but his white count is actually low and his fever is no longer present. I've been asked to evaluate the patient regarding this fever of unknown origin and to rule out a retropharyngeal abscess. I did review the results of the CAT scan films and there is significant asymmetry possibly from radiation therapy possibly from persistent malignancy. He does not have an elevated white count and he is no longer dealing with a fever. He denies any throat pain or any changes in the head and neck. Review of Systems - Constitutional Reports lethargy - EENT Ears, nose, mouth and throat: Denies epistaxis, Denies headache - Cardiovascular Denies chest pain - Respiratory Denies cough - Gastrointestinal Denies bloating - Genitourinary Denies dysuria - Musculoskeletal Denies fractures - Integumentary Denies change in hair/nails - Neurological Denies balance difficulties - Endocrine Reports fatigue - Hematologic/Lymphatic Denies easy bleeding Past Medical History Past Medical History: Cancer, Osteoarthritis (OA) Additional Past Medical History / Comment(s): Esophageal cancer with trach, PEG tube x2 years History of Any Multi-Drug Resistant Organisms: None Reported Past Surgical History: Bowel Resection Additional Past Surgical History / Comment(s): Tracheostomy, and PEG tube, colostomy reversed December (2018) Past Anesthesia/Blood Transfusion Reactions: No Reported Reaction Smoking Status: Former smoker - Past Family History Father Family Medical History: Cancer Additional Family Medical History / Comment(s): prostate cancer that spread to the brain Mother Family Medical History: Cancer Additional Family Medical History / Comment(s): ovarian cancer Sister(s) Family Medical History: Cancer Additional Family Medical History / Comment(s): breast cancer Medications and Allergies Home Medications Medication Instructions Recorded Confirmed Type PARoxetine HCL [Paxil] 10 mg PEG/G-TUBE HS 08/28/19 03/02/20 History Tamsulosin HCl [Flomax] 0.4 mg PEG/G-TUBE DAILY 10/22/19 03/02/20 History Nivolumab [Opdivo] 100 mg IV QMONTHLY 10/27/19 03/02/20 History ALPRAZolam [Xanax] 0.5 mg PEG/G-TUBE BID 02/16/20 03/02/20 History Omeprazole 20 mg PEG/G-TUBE BID 02/16/20 03/02/20 History Acetaminophen Tab [Tylenol] 650 mg PEG/G-TUBE Q4H PRN 03/02/20 03/02/20 History Aspirin 81 mg PEG/G-TUBE DAILY 03/02/20 03/02/20 History Atorvastatin [Lipitor] 10 mg PEG/G-TUBE HS 03/02/20 03/02/20 History Allergies Allergy/AdvReac Type Severity Reaction Status Date / Time adhesive tape Allergy Rash/Hives Verified 03/02/20 15:38 latex Allergy Rash/Hives Verified 03/02/20 15:38 Surgical - Exam Osteopathic Statement: *. No significant issues noted on an osteopathic structural exam other than those noted in the History and Physical/Consult. Vital Signs Temp Pulse Resp BP Pulse Ox 98.9 F 79 18 103/62 93 L 03/02/20 14:45 03/02/20 14:45 03/02/20 14:45 03/02/20 14:45 03/02/20 14:45 - General This patient has male pattern baldness and has no tumors or masses of the scalp. There is no evidence of any auricular dysfunction or problems with the tympanic membrane. The canals are clear. Nose is patent. Mouth and throat patient has deviation of the soft palate the radiation therapy no obvious tumors or masses are seen. No redness is noted. No postnasal drainage is seen. Neck shows previous tracheotomy incision and radiation changes noted. no distress - Eyes PERRL, normal ocular movement - ENT normal pinna, normal nares, normal mucosa - Respiratory normal expansion, normal respiratory effort - Integumentary no rash, no growths - Neurologic normal coordination, normal sensation - Musculoskeletal normal gait - Psychiatric oriented to time, oriented to person, oriented to place, speech is normal, memory intact Results - Labs 03/03/20 04:35 03/03/20 04:35 Abnormal Lab Results - Last 24 Hours (Table) 03/03/20 03/03/20 Range/Units 04:35 04:35 WBC 3.0 L (3.8-10.6) k/uL RBC 3.09 L (4.30-5.90) m/uL Hgb 9.8 L D (13.0-17.5) gm/dL Hct 28.5 L (39.0-53.0) % Lymphocytes # 0.3 L (1.0-4.8) k/uL BUN/Creatinine Ratio 23.33 H (12.00-20.00) Ratio Calcium 7.9 L (8.7-10.3) mg/dL AST 42 H (14-35) U/L ALT 57 H (10-49) U/L Total Protein 5.1 L (6.2-8.2) g/dL Albumin 3.10 L (3.80-4.90) g/dL Albumin/Globulin Ratio 1.55 L (1.60-3.17) g/dL Diabetes panel 03/03/20 Range/Units 04:35 Sodium 135 (135-145) mmol/L Potassium 4.0 (3.5-5.5) mmol/L Chloride 100 (96-109) mmol/L Carbon Dioxide 25.8 (21.6-31.8) mmol/L BUN 14.0 (9.0-27.0) mg/dL Creatinine 0.6 (0.6-1.5) mg/dL Glucose 82 (70-110) mg/dL Calcium 7.9 L (8.7-10.3) mg/dL AST 42 H (14-35) U/L ALT 57 H (10-49) U/L Alkaline Phosphatase 87 (41-126) U/L Total Protein 5.1 L (6.2-8.2) g/dL Albumin 3.10 L (3.80-4.90) g/dL Calcium panel 03/03/20 Range/Units 04:35 Calcium 7.9 L (8.7-10.3) mg/dL Albumin 3.10 L (3.80-4.90) g/dL Pituitary panel 03/03/20 Range/Units 04:35 Sodium 135 (135-145) mmol/L Potassium 4.0 (3.5-5.5) mmol/L Chloride 100 (96-109) mmol/L Carbon Dioxide 25.8 (21.6-31.8) mmol/L BUN 14.0 (9.0-27.0) mg/dL Creatinine 0.6 (0.6-1.5) mg/dL Glucose 82 (70-110) mg/dL Calcium 7.9 L (8.7-10.3) mg/dL Adrenal panel 03/03/20 Range/Units 04:35 Sodium 135 (135-145) mmol/L Potassium 4.0 (3.5-5.5) mmol/L Chloride 100 (96-109) mmol/L Carbon Dioxide 25.8 (21.6-31.8) mmol/L BUN 14.0 (9.0-27.0) mg/dL Creatinine 0.6 (0.6-1.5) mg/dL Glucose 82 (70-110) mg/dL Calcium 7.9 L (8.7-10.3) mg/dL Total Bilirubin 0.8 (0.2-1.2) mg/dL AST 42 H (14-35) U/L ALT 57 H (10-49) U/L Alkaline Phosphatase 87 (41-126) U/L Total Protein 5.1 L (6.2-8.2) g/dL Albumin 3.10 L (3.80-4.90) g/dL Assessment and Plan (1) Hypopharyngeal lesion Current Visit: Yes Status: Acute Code(s): J39.2 - OTHER DISEASES OF PHARYNX SNOMED Code(s): 972752484 Plan: Due to the fact that this patient has no further temperature and does not exhibit an elevated white count and is now it's evidence of abscess I doubt that the patient's dealing with a retropharyngeal abscess. He has significant irregularity on CAT scan to the hypopharynx either secondary to a combination of radiation therapy and her persistent malignancy to the hypopharynx. He has no ability to swallow and has not been able swallow for very long period of time. He denies any stridor or respiratory difficulties. I suspect persistent malignancy in the hypopharynx with extension to the mandible. Repeat biopsies would confirm this suspicion. The patient has been previously biopsied by ano ther social studies department chair by the name of Dr. Grayson. I do not have those biopsy results that the patient may need repeat endoscopy and biopsies. This patient should follow up with his social studies department chair Dr. Grayson for hypopharyngeal assessment as he may consider repeat biopsy. Since the patient has no stridor and no evidence of infection I will be signing off on this case. Please do not hesitate to reconsult me if my services are needed. Time with Patient: Greater than 30
[2020-03-03] MEDS: ATORVASTATIN 10 MG TAB PEG/G-TUBE SCH (21:50)
[2020-03-03] MEDS: PARoxetine 10 MG TAB PEG/G-TUBE SCH (21:51)
--- NOTE | 2020-03-03 23:25 | PN ---
PROGRESS NOTE We started him on Unasyn for cellulitis of the neck. Wait for Dr. Smith's recommendation. Surgical consultation. Got a neck/chest CT scan which showed asymmetric enlargement of the left thyroid lobe compared to the right, a few anterior triangle cervical lymph nodes measuring up to 1 cm, subcutaneous edema, anterior neck. IV antibiotics to be continued. ENT consult. Circumferential subglottic and glottic swelling consistent with edema, inflammatory process. Continue with Unasyn. Wait for ENT and Infectious Disease to see him. Prognosis guarded. MMODL / IJN: [id number] /
[2020-03-04] MEDS: SALT AND SODA MOUTHWASH 1,000 ML PO SCH ×6 (00:43→23:28)
[2020-03-04] MEDS: CLOTRIMAZOLE TROCHE 10 MG TROCHE MUCOUS MEM SCH ×6 (00:43→23:19)
[2020-03-04] MEDS: AMPICILLIN-SULBACTAM 1.5 GM in SODIUM CHLORIDE 0.9% 50 ML IVPB SCH ×4 (00:43→23:28)
[2020-03-04] MEDS: SODIUM CHLORIDE 0.9% 1,000 ML IV SCH ×4 (00:44→22:50)
[2020-03-04 07:08] LABS: Basophils % (A) 1 %; Eosinophils # (A) 0.1 k/uL (0-0.7); Eosinophils % (A) 4 %; HCT 28.8 % (39.0-53.0); HGB 9.9 gm/dL (13.0-17.5); Lymphocytes # (A) 0.3 k/uL (1.0-4.8); Lymphocytes % (A) 10 %; MCH 31.7 pg (25.0-35.0); MCHC 34.4 g/dL (31.0-37.0); MCV 92.1 fL (80.0-100.0); Mean Platelet Volume 7.9; Monocytes # (A) 0.1 k/uL (0-1.0); Monocytes % (A) 4 %; Neutrophils # (A) 2.1 k/uL (1.3-7.7); Neutrophils % (A) 80 %; Platelet Count 243 k/uL (150-450); RBC 3.12 m/uL (4.30-5.90); RDW 13.6 % (11.5-15.5); WBC 2.7 k/uL (3.8-10.6)
[2020-03-04] MEDS: ASPIRIN 81 MG PEG/G-TUBE SCH (10:12)
[2020-03-04] MEDS: ALPRAZolam 0.5 MG TAB PEG/G-TUBE SCH ×2 (10:12→21:13)
[2020-03-04] MEDS: TAMSULOSIN 0.4 MG CAP.ER.24H PO SCH (10:12)
[2020-03-04] MEDS: PANTOPRAZOLE SODIUM 40 MG GRANULE PKT PEG/G-TUBE SCH ×2 (10:12→22:50)
--- NOTE | 2020-03-04 11:32 | P.PN ---
Subjective Progress Note Date: 03/04/20 HISTORY OF PRESENT ILLNESS This is 65-year-old male with history of right of oropharyngeal mass with inva sive poorly differential squamous cell carcinoma s/p chemotherapy and focal radiation, history of tobacco use, 50 year smoker and quit in 2018. tobacco user ([id number] smoker quit 2018. Patient has a PEG tube for nutrition and does not take oral intake which is chronic. Patient was seen during recent hospitalization by oncology with concern for appearance of progression on CAT scan soft tissue of the neck and patient was to have outpatient PET scan done and ENT to assess. Patient was discharged on February 20. Patient presents complaining of fever of 100.6 at home. He feels that he has not any and proved from when he was discharged and admitted last. He denies having any neck pain. He denies any nausea, vomiting. No abdominal pain. He denies any chest pain, shortness of breath or cough. Patient has been afebrile, heart rate 92, blood pressure 100/62 and pulse ox 96% on room air. CAT scan of the neck reveals mild subsegmental atelectasis and fibrotic changes in the lungs. No suspicious pulmonary mass. Mild atherosclerotic vascular disease. Mild prevertebral soft tissue swelling and also circumferential subglottic and glottic swelling consistent with edema and inflammatory process. Developing retropharyngeal abscess is possible. There is subcutaneous edema. Narrowing of the airway. Tumor is not excluded. Patient states that he last saw ENT and [place] a bout a year ago. 03/04: Patient denies any further fevers. He denies any chest pain, shortness of breath or cough. No abdominal pain. He states the swelling in his throat seems to be better. He has been seen by ENT and outs the patient has a retropharyngeal abscess. CAT scan irregularity could be a combination of radiation therapy and malignancy to the hypopharynx. Recommendations to follow up with his invisible braces orthodontist Dr. Grayson for hypopharyngeal assessment as he may consider repeat biopsy. Patient is afebrile, heart rate 104, blood pressure 114/65, pulse ox 94% on room air. Repeat WBC 2.7, hemoglobin 9.9. PHYSICAL EXAMINATION Gen: This is a 65-year-old male. He is resting but appears to be comfortable. HEENT: Head is atraumatic, normocephalic. Pupils equal, round. Sclerae is anicteric. NECK: Supple. No JVD. No lymphadenopathy. No thyromegaly. No stridor. LUNGS: Clear to auscultation. No wheezes or rhonchi. No intercostal retractions. HEART: Regular rate and rhythm. No murmur. ABDOMEN: Soft. Bowel sounds are present. No masses. No tenderness. EXTREMITIES: No pedal edema. No calf tenderness. NEUROLOGICAL: Patient is awake, alert and oriented x3. Cranial nerves 2 through 12 are grossly intact. ASSESSMENT Fever Possible Retropharyngeal abscess Oropharyngeal carcinoma status post radiation and focal radiation. PLAN Continue Unasyn 1.5 g every 8 hours Consult with ENT appreciated Further recommendations based on patient's progress. Thank you kindly for this consultation. The above dictated assessment and findings were discussed with Dr. Smith. The impression and plan of care have been directed as dictated. Angela Sow nurse practitioner acting as scribe for Dr. Smith. Objective - Vital Signs Vital signs: Vital Signs Temp 99.4 F 03/04/20 03:50 Pulse 104 H 03/04/20 03:50 Resp 20 03/03/20 13:15 BP 114/65 03/04/20 03:50 Pulse Ox 94 L 03/04/20 03:50 Intake & Output 03/03/20 03/04/20 03/04/20 18:59 06:59 18:59 Weight 78.925 kg - Labs CBC & Chem 7: 03/04/20 05:48 03/03/20 04:35 Labs: Abnormal Lab Results - Last 24 Hours (Table) 03/04/20 Range/Units 05:48 WBC 2.7 L (3.8-10.6) k/uL RBC 3.12 L (4.30-5.90) m/uL Hgb 9.9 L (13.0-17.5) gm/dL Hct 28.8 L (39.0-53.0) % Lymphocytes # 0.3 L (1.0-4.8) k/uL
[2020-03-04] MEDS: FLUCONAZOLE IN NACL,ISO-OSM 100 MG in SALINE 1 50ML.BAG IVPB SCH (11:37)
--- NOTE | 2020-03-04 16:30 | P.PN ---
Subjective Progress Note Date: 03/04/20 Principal diagnosis: fever, neck swelling In f/u today pt states his neck is less full, oral and throat irritation are better. No fevers or new symptoms to report Objective - Vital Signs Vital signs: Vital Signs Temp 98.0 F 03/04/20 14:00 Pulse 91 03/04/20 14:00 Resp 18 03/04/20 14:00 BP 121/75 03/04/20 14:00 Pulse Ox 98 03/04/20 14:00 Intake & Output 03/03/20 03/04/20 03/04/20 18:59 06:59 18:59 Weight 78.925 kg 77 kg - Constitutional General appearance: Present: average body habitus, cooperative, no acute distress - EENT EENT Comment(s): the thrush on his tongue is peeling off, the tongue underneath is red and irritated but no open lesion Eyes: Present: anicteric sclerae ENT: Present: thrush - Neck Details: less fullness, redness is gone, not as tender, skin feels normal temp - Respiratory Respiratory: bilateral: CTA - Cardiovascular Rhythm: regular Heart sounds: normal: S1, S2 Abnormal Heart Sounds: Absent: systolic murmur, diastolic murmur, rub, S3 Gal lop, S4 Gallop, click, other - Gastrointestinal General gastrointestinal: Present: normal bowel sounds, soft - Integumentary Integumentary: Present: normal - Musculoskeletal Musculoskeletal: Present: generalized weakness, strength equal bilaterally - Psychiatric Psychiatric: Present: A&O x's 3, appropriate affect, intact judgment & insight - Labs CBC & Chem 7: 03/04/20 05:48 03/03/20 04:35 Labs: Abnormal Lab Results - Last 24 Hours (Table) 03/04/20 Range/Units 05:48 WBC 2.7 L (3.8-10.6) k/uL RBC 3.12 L (4.30-5.90) m/uL Hgb 9.9 L (13.0-17.5) gm/dL Hct 28.8 L (39.0-53.0) % Lymphocytes # 0.3 L (1.0-4.8) k/uL Assessment and Plan (1) Fever, unknown origin Narrative/Plan: ID consulted, pancultures pending, empiric abx. Neck possible source? Current Visit: Yes Status: Acute Priority: High Code(s): R50.9 - FEVER, UNSPECIFIED SNOMED Code(s): 2553623 (2) Thrush Narrative/Plan: Pt can manage secretions-clotrimazole arlet, IV diflucan. Cont treatment- improvements. Use Salt and soda rinse. Current Visit: Yes Status: Acute Priority: High Code(s): B37.0 - CANDIDAL STOMATITIS SNOMED Code(s): 22265676 (3) Squamous cell carcinoma Narrative/Plan: Pt has been on Opdivo since early last year and doing well. CT of neck and chest reports prevertebral swelling, epiglottis and glottis swelling, SQ edema in anterior neck. Treatment restaging PET scan is due, pending treatment of suspected infection. Current Visit: No Status: Chronic Priority: Medium Code(s): C44.92 - SQUAMOUS CELL CARCINOMA OF SKIN, UNSPECIFIED SNOMED Code(s): 674331162
[2020-03-04] MEDS: ATORVASTATIN 10 MG TAB PEG/G-TUBE SCH (21:13)
[2020-03-04] MEDS: PARoxetine 10 MG TAB PEG/G-TUBE SCH (22:51)
--- NOTE | 2020-03-04 23:44 | PN ---
PROGRESS NOTE 65-year-old white male who was admitted with cellulitis of the neck with recurrent fevers. Cardiovascular: S1, S2. Lungs clear. GI soft. Hematology: Negative Homans. Cleared for ENT here to follow up with middleware administrator, Dr. Earl for repeat biopsy of his throat. O2 94 on room air. Blood pressure 114/65, heart rate 104, hemoglobin 9.9. ASSESSMENT: 1. Fever. 2. Possible retropharyngeal abscess or pharyngeal carcinoma status post radiation. Continue Unasyn and ENT, Infectious Disease. Continue with IV antibiotics. MMODL / IJN: [id number] /
[2020-03-05] MEDS: SODIUM CHLORIDE 0.9% 1,000 ML IV SCH ×3 (04:54→20:59)
[2020-03-05] MEDS: SALT AND SODA MOUTHWASH 1,000 ML PO SCH ×4 (05:29→22:43)
[2020-03-05] MEDS: AMPICILLIN-SULBACTAM 1.5 GM in SODIUM CHLORIDE 0.9% 50 ML IVPB SCH ×2 (09:50→15:40)
[2020-03-05] MEDS: ALPRAZolam 0.5 MG TAB PEG/G-TUBE SCH ×2 (09:55→20:56)
[2020-03-05] MEDS: TAMSULOSIN 0.4 MG CAP.ER.24H PO SCH (09:55)
[2020-03-05] MEDS: ASPIRIN 81 MG PEG/G-TUBE SCH (09:56)
[2020-03-05] MEDS: PANTOPRAZOLE SODIUM 40 MG GRANULE PKT PEG/G-TUBE SCH ×2 (10:09→20:56)
[2020-03-05] MEDS: CLOTRIMAZOLE TROCHE 10 MG TROCHE MUCOUS MEM SCH ×3 (11:21→22:43)
[2020-03-05 12:45] VITALS: BMI 28.3
--- NOTE | 2020-03-05 12:53 | P.PN ---
Subjective Progress Note Date: 03/05/20 HISTORY OF PRESENT ILLNESS This is 65-year-old male with history of right of oropharyngeal mass with inva sive poorly differential squamous cell carcinoma s/p chemotherapy and focal radiation, history of tobacco use, 50 year smoker and quit in 2018. tobacco user ([id number] smoker quit 2018. Patient has a PEG tube for nutrition and does not take oral intake which is chronic. Patient was seen during recent hospitalization by oncology with concern for appearance of progression on CAT scan soft tissue of the neck and patient was to have outpatient PET scan done and ENT to assess. Patient was discharged on February 20. Patient presents complaining of fever of 100.6 at home. He feels that he has not any and proved from when he was discharged and admitted last. He denies having any neck pain. He denies any nausea, vomiting. No abdominal pain. He denies any chest pain, shortness of breath or cough. Patient has been afebrile, heart rate 92, blood pressure 100/62 and pulse ox 96% on room air. CAT scan of the neck reveals mild subsegmental atelectasis and fibrotic changes in the lungs. No suspicious pulmonary mass. Mild atherosclerotic vascular disease. Mild prevertebral soft tissue swelling and also circumferential subglottic and glottic swelling consistent with edema and inflammatory process. Developing retropharyngeal abscess is possible. There is subcutaneous edema. Narrowing of the airway. Tumor is not excluded. Patient states that he last saw ENT and [place] a bout a year ago. 03/04: Patient denies any further fevers. He denies any chest pain, shortness of breath or cough. No abdominal pain. He states the swelling in his throat seems to be better. He has been seen by ENT and outs the patient has a retropharyngeal abscess. CAT scan irregularity could be a combination of radiation therapy and malignancy to the hypopharynx. Recommendations to follow up with his technical solution architect Dr. Grayson for hypopharyngeal assessment as he may consider repeat biopsy. Patient is afebrile, heart rate 104, blood pressure 114/65, pulse ox 94% on room air. Repeat WBC 2.7, hemoglobin 9.9. 03/05: Patient has had fever 101.6 with tachycardia of 103. Blood pressure 103/61, pulse ox 96% on room air. Patient denies difficulty swallowing, no chest pain, no shortness of breath or cough. He denies any abdominal pain. He denies feeling fevers or chills. WBC 2.7, hemoglobin 9.9 PHYSICAL EXAMINATION Gen: This is a 65-year-old male. He is resting but appears to be comfortable. HEENT: Head is atraumatic, normocephalic. Pupils equal, round. Sclerae is a nicteric. No stridor noted. NECK: Supple. No JVD. No lymphadenopathy. No thyromegaly. No stridor. LUNGS: Clear to auscultation. No wheezes or rhonchi. No intercostal retractions. HEART: Regular rate and rhythm. No murmur. ABDOMEN: Soft. Bowel sounds are present. No masses. No tenderness. EXTREMITIES: No pedal edema. No calf tenderness. NEUROLOGICAL: Patient is awake, alert and oriented x3. Cranial nerves 2 through 12 are grossly intact. 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 PLAN Continue Unasyn 1.5 g every 8 hours Consult with ENT appreciated Recommend transfer to tertiary care center possibly where Dr. Grayson practices for further evaluation of suspected retropharyngeal abscess and further treatment. The above dictated assessment and findings were discussed with Dr. Smith. The impression and plan of care have been directed as dictated. Angela Sow nurse practitioner acting as scribe for Dr. Smith. Objective - Vital Signs Vital signs: Vital Signs Temp 100.8 F H 03/05/20 09:53 Pulse 103 H 03/05/20 06:57 Resp 16 03/05/20 06:57 BP 103/61 03/05/20 06:57 Pulse Ox 96 03/05/20 06:57 Intake & Output 03/04/20 03/05/20 03/05/20 18:59 06:59 18:59 Intake Total 450 Balance 450 Weight 77 kg 79.5 kg Intake: Tube Feeding 360 Other 90 - Labs CBC & Chem 7: 03/04/20 05:48 03/03/20 04:35
--- NOTE | 2020-03-05 13:00 | XR ---
EXAMINATION TYPE: XR chest 2V DATE OF EXAM: 03/05/2020 COMPARISON: 03/02/2020 TECHNIQUE: PA and lateral views submitted. HISTORY: Persistent fever FINDINGS: Right basilar subsegmental consolidation. Biapical pleural thickening. Hyperinflation is seen correla te for COPD. Hypertrophic and degenerative change of the spine. Atherosclerotic change aorta. No over t failure. Arthropathy of the shoulders. IMPRESSION: 1. Right basilar infiltrate.
[2020-03-05] MEDS: FLUCONAZOLE IN NACL,ISO-OSM 100 MG in SALINE 1 50ML.BAG IVPB SCH (13:26)
[2020-03-05 15:05] LABS: Basophils % (A) 0 %; Eosinophils # (A) 0.1 k/uL (0-0.7); Eosinophils % (A) 3 %; HCT 30.7 % (39.0-53.0); HGB 10.7 gm/dL (13.0-17.5); Lymphocytes # (A) 0.3 k/uL (1.0-4.8); Lymphocytes % (A) 10 %; MCH 31.9 pg (25.0-35.0); MCHC 34.7 g/dL (31.0-37.0); MCV 91.8 fL (80.0-100.0); Mean Platelet Volume 7.6; Monocytes # (A) 0.1 k/uL (0-1.0); Monocytes % (A) 4 %; Neutrophils # (A) 2.6 k/uL (1.3-7.7); Neutrophils % (A) 81 %; Platelet Count 235 k/uL (150-450); RBC 3.34 m/uL (4.30-5.90); RDW 13.7 % (11.5-15.5); WBC 3.2 k/uL (3.8-10.6)
[2020-03-05 18:15] VITALS: RESP 18
[2020-03-05 20:46] VITALS: BP 133/82; PULSE 104; TEMP 97.9
[2020-03-05] MEDS: ATORVASTATIN 10 MG TAB PEG/G-TUBE SCH (20:56)
[2020-03-05] MEDS: PARoxetine 10 MG TAB PEG/G-TUBE SCH (20:56)
--- NOTE | 2020-03-05 21:11 | P.PN ---
Subjective Progress Note Date: 03/05/20 Principal diagnosis: Fever Still with persistent fevers despite antibiotics and antifungals. Further evaluation today with chest xray, influenza and blood cultures (last admission most recent) Objective - Vital Signs Vital signs: Vital Signs Temp 100.8 F H 03/05/20 09:53 Pulse 103 H 03/05/20 06:57 Resp 16 03/05/20 06:57 BP 103/61 03/05/20 06:57 Pulse Ox 96 03/05/20 06:57 Intake & Output 03/04/20 03/05/20 03/05/20 18:59 06:59 18:59 Intake Total 450 Balance 450 Weight 77 kg 79.5 kg Intake: Tube Feeding 360 Other 90 - Exam - Constitutional General appearance: Present: average body habitus, cooperative, no acute distress - EENT EENT Comment(s): the thrush on his tongue is peeling off, the tongue underneath is red and irritated but no open lesion Eyes: Present: anicteric sclerae ENT: Present: thrush - Neck Details: less fullness, redness is gone, not as tender, skin feels normal temp - Respiratory Respiratory: bilateral: CTA - Cardiovascular Rhythm: regular Heart sounds: normal: S1, S2 Abnormal Heart Sounds: Absent: systolic murmur, diastolic murmur, rub, S3 Gallop, S4 Gallop, click, other - Gastrointestinal General gastrointestinal: Present: normal bowel sounds, soft - Integumentary Integumentary: Present: normal - Musculoskeletal Musculoskeletal: Present: generalized weakness, strength equal bilaterally - Psychiatric Psychiatric: Present: A&O x's 3, appropriate affect, intact judgment & insight - Labs CBC & Chem 7: 03/05/20 14:17 03/03/20 04:35 Assessment and Plan Plan: Assessment and Plan Fever, unknown origin ID Following - pancultures pending, empiric abx. Neck possible source? - Further evaluation Blood cultures, Influenza, and Chest xray - Discussed with ID CHALK EXTRUDING MACHINE OPERATOR coverage - WBC Nuclear scan - CBC and CMP today Oral Thrush Pt can manage secretions-clotrimazole arlet, IV diflucan. Current Visit: Yes Status: Acute Priority: High Code(s): B37.0 - CANDIDAL STOMATITIS SNOMED Code(s): 55854712 Squamous cell carcinoma Pt has been on Opdivo since early last year and doing well. CT of neck and chest reports prevertebral swelling, epiglottis and glottis swelling, SQ edema in anterior neck. - Treatment restaging PET scan is due, pending treatment of suspected infection. Physician Attest: I have completed the full history and physical and agree with above dictation, dictated as a scribe
[2020-03-06 03:51] LABS: African American GFR (CKD) 114.8 (60.0-200.0); Albumin 3.4 g/dL (3.80-4.90); Albumin/Globulin Ratio 1.7 (1.60-3.17); Anion Gap 3.7 mmol/L (4.00-12.00); Calcium 8.1 mg/dL (8.7-10.3); Carbon Dioxide 23.3 mmol/L (21.6-31.8); Magnesium 1.8 mg/dL (1.5-2.4); Potassium 3.5 mmol/L (3.5-5.5); Total Bilirubin 0.6 mg/dL (0.3-1.2); Total Protein 5.4 g/dL (6.2-8.2)
== END 2020-03-05 23:39 | disposition short-term general hospital (02) | DRG 153 ==
LOC: EC 14:38 → 6NMEDSUR 18:49 → OBSVTOIN 03-04 16:44
PROVIDERS: ADMIT Family Medicine; ATTEND Family Medicine
DX: J39.0 Retropharyngeal and parapharyngeal abscess (principal); E87.2 Acidosis; L03.221 Cellulitis of neck; B37.0 Candidal stomatitis; J98.11 Atelectasis; Z20.822 Contact with and (suspected) exposure to COVID-19; M19.90 Unspecified osteoarthritis, unspecified site; F32.9 Major depressive disorder, single episode, unspecified; F41.9 Anxiety disorder, unspecified; E86.0 Dehydration; C10.9 Malignant neoplasm of oropharynx, unspecified; Z93.1 Gastrostomy status; Z92.3 Personal history of irradiation; Z92.21 Personal history of antineoplastic chemotherapy; Z87.891 Personal history of nicotine dependence; Z85.819 Personal history of malignant neoplasm of unspecified site of lip, oral cavity, and pharynx; Z85.01 Personal history of malignant neoplasm of esophagus; Z80.42 Family history of malignant neoplasm of prostate; Z80.3 Family history of malignant neoplasm of breast; Z79.899 Other long term (current) drug therapy; Z79.82 Long term (current) use of aspirin; Z91.040 Latex allergy status; Z91.09 Other allergy status, other than to drugs and biological substances; Z90.49 Acquired absence of other specified parts of digestive tract; Z98.890 Other specified postprocedural states
CPT/HCPCS: 36415; 70490; 71046; 71250; 80053; 81001; 83605; 83735; 85025; 85610; 85730; 87040; 87635; 93005; 99285

== ENCOUNTER → 2020-03-19 | Outpatient (CLI) | payer MEDICARE, OTHER ==
--- NOTE | 2020-03-22 10:27 | PE ---
Nuclear medicine PET/CT HISTORY: Head and neck carcinoma, subsequent, C 76.0 Patient received 10.02 mCi F-18 FDG intravenously in delayed scanning was performed from skull base t o the mid thighs. Localization and attenuation correction CT scan was performed. Correlation to prior CT of the neck and chest 03/02/2020, PET/CT 07/25/2019 Chest and neck: There is no pleural effusion, small pericardial effusion again seen. No mediastinal, axillary, or hilar adenopathy. Thyroid shows abnormal low attenuation within the left lobe. There is no cervical or supraclavicular adenopathy. No suspicious uptake. Soft tissue thickening noted at the level of the glottis as previously described. ABDOMEN: There is a focus of hypermetabolic uptake within the posterior right lobe of liver, correspo nding low-attenuation, SUV 6.5 question of peripheral focus of hyper metabolic uptake, SUV 3.1 and po sterior right lobe of the liver. There is no retroperitoneal adenopathy. Gastrostomy tube is in place . No evident adrenal mass. Postop changes are noted to be right colon. No other suspicious uptake, no ascites. No pelvic adenopathy. Osseous structures: There is abnormal uptake within the L5 vertebral body, punctate focus shows SUV 4 .5, posterior elements on the right shows a small focus of activity, SUV 3.3. Sclerosis present at th e thoracic vertebral level as noted on prior exam shows associated uptake, SUV 5.9. There is a sterna l focus of sclerosis, associated uptake, SUV 3.6. IMPRESSION: Metastatic disease.
== END | disposition home or self-care (01) ==
LOC: RADPETMAIN 12:44
PROVIDERS: ATTEND Internal Medicine Hematology & Oncology
DX: C76.0 Malignant neoplasm of head, face and neck (principal)
CPT/HCPCS: 78815; A9552

== ENCOUNTER → 2020-04-02 | Outpatient (CLI) | payer MEDICARE, OTHER ==
[2020-04-02 16:32] LABS: African American GFR (CKD) >90 (>60 ml/min/1.73 sqM); Blood Urea Nitrogen 15 mg/dL (9-20); Non-African American GFR(CKD) >90 (>60 ml/min/1.73 sqM)
--- NOTE | 2020-04-03 07:19 | CT ---
EXAMINATION TYPE: CT abdomen wo/w con DATE OF EXAM: 04/02/2020 COMPARISON: 02/19/2020 and PET/CT March 19, 2020 HISTORY: f/u liver lesions. hx of throat ca. CT DLP: 1447 mGycm CONTRAST: CT scan of the abdomen is performed with Oral Contrast and without and with IV Contrast, patient inje cted with 100 mL of Isovue 300. FINDINGS: LUNG BASES-: No visible nodule. No infiltrate. LIVER/GB: No calcified gallstones. The dome of the liver there is a 2.7 cm hypoattenuating lesion felt to reflect metastatic disease. Ad ditional peripheral lesion anterior segment right hepatic lobe measuring 1 cm. A third nonspecific to o small to characterize lesion medial anterior segment right hepatic lobe measures 5 mm. Biliary tree is of normal caliber. PANCREAS: No inflammation. No distinct mass. SPLEEN: No splenic enlargement. No lesion seen. ADRENALS: No nodule. No thickening. KIDNEYS/BLADDER: No hydronephrosis. No nephrolithiasis. No distinct renal mass. Urinary bladder g rossly unremarkable. BOWEL: Gastrostomy tube is in place. Normal appendix. Normal bowel caliber. No inflammation. LYMPH NODES: No greater than 1cm abdominal or pelvic lymph nodes are appreciated. AORTA: No significant abnormality. OSSEOUS STRUCTURES: Sclerotic metastases described previously. OTHER: No significant additional abnormality is seen. IMPRESSION: 1. Metastatic disease to the liver. 2.Sclerotic metastases described previously.
== END | disposition home or self-care (01) ==
LOC: RADCTMAIN 15:03
PROVIDERS: ATTEND Radiology Radiation Oncology
DX: C78.7 Secondary malignant neoplasm of liver and intrahepatic bile duct (principal); C79.51 Secondary malignant neoplasm of bone; C77.0 Secondary and unspecified malignant neoplasm of lymph nodes of head, face and neck; C10.9 Malignant neoplasm of oropharynx, unspecified; Z92.3 Personal history of irradiation; Z92.21 Personal history of antineoplastic chemotherapy; Z87.891 Personal history of nicotine dependence
CPT/HCPCS: 82565; 84520; 74170; 36415; Q9967

== ENCOUNTER 2020-04-15 09:43 | Day surgery (SDC) | payer MEDICARE, OTHER ==
[2020-04-15 10:20] VITALS: RESP 18; TEMP 99.8
[2020-04-15] MEDS ORDERED: LACTATED RINGERS 1,000 ML IV ONE (10:35)
[2020-04-15] MEDS ORDERED: PROPOFOL 10 MG/ML 20 ML VIAL IV ONE (12:42)
--- NOTE | 2020-04-15 13:00 | P.PCN ---
Date of Procedure: 04/15/20 Procedure(s) Performed: BRIEF HISTORY: Patient is a 65-year-old, pleasant, white male with history of head and neck cancer diagnosed 2 years ago, status post chemoradiation and surgery. Patient with tight esophageal stricture and hence has a PEG tube placed 2 years ago. He was seen in office with PEG tube malfunction yesterday. Hence he scheduled for an PEG tube replacement. I attempted deflating the procedure well but was not successful and despite multiple attempts was not able to withdraw the PEG tube from the anterior abdominal wall. Decided to proceed with an EGD for PEG tube replacement. PROCEDURE PERFORMED: Esophagogastroduodenoscopy with PEG tube replacement. PREOPERATIVE DIAGNOSIS: PEG tube malfunction. IV sedation per anesthesia. PROCEDURE: After informed consent was obtained, the patient was brought into the endoscopy unit. IV sedation was administered by Anesthesia under continuous monitoring. Initially the Olympus GIF-140 video endoscope was inserted into the mouth. Esophagus intubated without any difficulty. There was an esophageal stricture noted in the proximal cervical esophagus but the stone was gently advanced through the stricture. It was gradually advanced into the stomach and duodenum and carefully examined. The bulb and the second part of the duodenum appeared normal. The scope at this time was withdrawn to the stomach, adequately insufflated with air, and upon careful examination, mucosa of the antrum, body, cardia and the fundus appeared normal. The previously noted balloon replacement tube had a balloon that was inflated and at this time using a syringe the balloon was deflated and gently withdrawn. Following this a #20-[place] balloon replacement tube was placed from the existing gastrostomy site and was inflated with 20 mL of saline. It was flushed with water and was straightened. The scope was then withdrawn into the esophagus. The GE junction was located at 39 cm from the incisors. There was an esophageal stricture noted in the proximal cervical esophagus was slightly radiation-induced. Patient tolerated the procedure well. IMPRESSION: 1. Successful replacement of PEG tube with a 20-[place] Bard balloon replacement tube as described above. 2. Proximal esophageal stricture. RECOMMENDATIONS: The findings of this examination were discussed with the patient as well as his family. He will be discharged home and he was advised to use PEG tube for feeds today..
[2020-04-15 13:10] VITALS: PULSE 96
[2020-04-15 13:52] VITALS: BP 113/69
== END 2020-04-15 13:53 | disposition home or self-care (01) ==
LOC: ORWHC2ENDO 09:43
PROVIDERS: ATTEND Internal Medicine Gastroenterology
DX: K94.23 Gastrostomy malfunction (principal); K22.2 Esophageal obstruction; F17.210 Nicotine dependence, cigarettes, uncomplicated; F41.9 Anxiety disorder, unspecified; F32.9 Major depressive disorder, single episode, unspecified; Z79.82 Long term (current) use of aspirin; Z79.899 Other long term (current) drug therapy; Z85.01 Personal history of malignant neoplasm of esophagus; Z91.040 Latex allergy status; Z90.49 Acquired absence of other specified parts of digestive tract; Y83.3 Surgical operation with formation of external stoma as the cause of abnormal reaction of the patient, or of later complication, without mention of misadventure at the time of the procedure
CPT/HCPCS: 43246; J2704

== ENCOUNTER 2020-04-23 09:05 | Inpatient (IN) | payer MEDICARE, OTHER ==
[2020-04-23] MEDS ORDERED: SODIUM CHLORIDE 0.9% 1,000 ML IV ONE (09:25)
[2020-04-23] MEDS ORDERED: HYDROmorphone 0.5 MG/0.5 ML SYRINGE IVP STA (09:29)
[2020-04-23] MEDS ORDERED: ONDANSETRON 4 MG/2 ML VIAL IVP STA (09:34)
--- NOTE | 2020-04-23 09:37 | ED ---
General Adult HPI - General Chief complaint: Nausea/Vomiting/Diarrhea Stated complaint: Arelis dunlap Time Seen by Provider: 04/23/20 09:07 Source: patient, EMS, RN notes reviewed, old records reviewed Mode of arrival: EMS Limitations: no limitations - History of Present Illness Initial comments: 65-year-old male presenting with nausea vomiting and abdominal pain. Patient states that he called EMS for abdominal pain and vomiting but that he was supposed to be admitted either to his oncologist or primary care physician. He is a poor historian in the exact details of this or not well understood. He states that he's been treated with radiation for metastatic cancer. He reports increased abdominal pain. He has had a PEG tube placed and states it has been working well. No fevers. - Related Data Home Medications Medication Instructions Recorded Confirmed PARoxetine HCL [Paxil] 10 mg PEG/G-TUBE HS 08/28/19 04/23/20 Nivolumab [Opdivo] 100 mg IV QMONTHLY 10/27/19 04/23/20 ALPRAZolam [Xanax] 0.5 mg PEG/G-TUBE BID 02/16/20 04/23/20 Aspirin 81 mg PEG/G-TUBE DAILY 03/02/20 04/23/20 Atorvastatin [Lipitor] 10 mg PEG/G-TUBE HS 03/02/20 04/23/20 HYDROcodone/APAP 10-325MG [[place] 10 mg PO Q6HR PRN 04/15/20 04/23/20 10-325] Allergies Allergy/AdvReac Type Severity Reaction Status Date / Time adhesive tape Allergy Rash/Hives Verified 04/23/20 10:14 latex Allergy Rash/Hives Verified 04/23/20 10:14 Review of Systems ROS Statement: Those systems with pertinent positive or pertinent negative responses have been documented in the HPI. ROS Other: All systems not noted in ROS Statement are negative. Past Medical History Past Medical History: Cancer, Osteoarthritis (OA) Additional Past Medical History / Comment(s): Esophageal cancer with trach, PEG tube x2 years History of Any Multi-Drug Resistant Organisms: None Reported Past Surgical History: Bowel Resection Additional Past Surgical History / Comment(s): Tracheostomy, and PEG tube, colostomy reversed December (2018) Past Anesthesia/Blood Transfusion Reactions: No Reported Reaction Past Psychological History: Anxiety, Depression Smoking Status: Former smoker Past Alcohol Use History: None Reported Past Drug Use History: None Reported - Past Family History Father Family Medical History: Cancer Additional Family Medical History / Comment(s): prostate cancer that spread to the brain Mother Family Medical History: Cancer Additional Family Medical History / Comment(s): ovarian cancer Sister(s) Family Medical History: Cancer Additional Family Medical History / Comment(s): breast cancer General Exam Limitations: no limitations General appearance: alert, in no apparent distress Head exam: Present: atraumatic, normocephalic Eye exam: Present: normal appearance, PERRL ENT exam: Present: mucous membranes dry Neck exam: Present: normal inspection. Absent: tenderness, meningismus Respiratory exam: Present: normal lung sounds bilaterally. Absent: respiratory distress, wheezes, rales Cardiovascular Exam: Present: regular rate, normal rhythm GI/Abdominal exam: Present: soft, other (PEG tube with minimal surrounding erythema, no cellulitis, no induration or fluctuance at the PEG tube site). Absent: distended, tenderness, guarding, rebound Extremities exam: Present: normal capillary refill. Absent: pedal edema Neurological exam: Present: alert. Absent: motor sensory deficit Skin exam: Present: warm, dry, intact. Absent: cyanosis, diaphoretic Course Vital Signs 04/23/20 04/23/20 09:10 09:45 Temperature 97.6 F 97.6 F Pulse Rate 84 74 Respiratory 18 16 Rate Blood Pressure 114/64 102/63 O2 Sat by Pulse 98 99 Oximetry Medical Decision Making - Medical Decision Making 65-year-old male presenting for evaluation nausea vomiting abdominal pain and concern for PEG tube issues. I did discuss case with the patient's who is requesting evaluation by Dr. Yap, regarding the PEG tube. The tube has been working appropriately. There is no external signs of infection or tenderness. There is no abdominal tenderness on exam. I did discuss case with Dr. Kaufman who is familiar with the patient, will admit with both Dr. Marks and Dr. Barron on consult. - Lab Data Result diagrams: 04/23/20 09:33 04/23/20 09:33 Lab Results 04/23/20 04/23/20 Range/Units 09:33 09:33 WBC 1.5 L (3.8-10.6) k/uL RBC 3.21 L (4.30-5.90) m/uL Hgb 10.1 L (13.0-17.5) gm/dL Hct 29.8 L (39.0-53.0) % MCV 92.8 (80.0-100.0) fL MCH 31.4 (25.0-35.0) pg MCHC 33.8 (31.0-37.0) g/dL RDW 18.0 H (11.5-15.5) % Plt Count 153 (150-450) k/uL MPV 8.4 Neutrophils % 85 % Lymphocytes % 6 % Monocytes % 5 % Eosinophils % 2 % Basophils % 0 % Neutrophils # 1.3 (1.3-7.7) k/uL Lymphocytes # 0.1 L (1.0-4.8) k/uL Monocytes # 0.1 (0-1.0) k/uL Eosinophils # 0.0 (0-0.7) k/uL Basophils # 0.0 (0-0.2) k/uL Hypochromasia Slight Anisocytosis Slight Sodium 136 L (137-145) mmol/L Potassium 4.1 (3.5-5.1) mmol/L Chloride 101 (98-107) mmol/L Carbon Dioxide 25 (22-30) mmol/L Anion Gap 10 mmol/L BUN 12 (9-20) mg/dL Creatinine 0.51 L (0.66-1.25) mg/dL Est GFR (CKD-EPI)AfAm >90 (>60 ml/min/1.73 sqM) Est GFR (CKD-EPI)NonAf >90 (>60 ml/min/1.73 sqM) Glucose 116 H (74-99) mg/dL Calcium 8.7 (8.4-10.2) mg/dL Magnesium 1.8 (1.6-2.3) mg/dL Total Bilirubin 1.4 H (0.2-1.3) mg/dL AST 54 (17-59) U/L ALT 29 (4-49) U/L Alkaline Phosphatase 113 (38-126) U/L Total Protein 6.8 (6.3-8.2) g/dL Albumin 3.5 (3.5-5.0) g/dL Disposition Clinical Impression: Dehydration, Nausea & vomiting Disposition: ADMITTED IP TO THIS HOSP Condition: Stable Is patient prescribed a controlled substance at d/c from ED?: No Referrals: Raphael Kaufman MD [Primary Care Provider] - 1-2 days Decision to Admit Reason: Admit from EC Decision Date: 04/23/20 Decision Time: 10:26
[2020-04-23 09:46] LABS: Anisocytosis Slight; Basophils % (A) 0 %; Eosinophils % (A) 2 %; HCT 29.8 % (39.0-53.0); HGB 10.1 gm/dL (13.0-17.5); Hypochromasia Slight; Lymphocytes # (A) 0.1 k/uL (1.0-4.8); Lymphocytes % (A) 6 %; MCH 31.4 pg (25.0-35.0); MCHC 33.8 g/dL (31.0-37.0); MCV 92.8 fL (80.0-100.0); Mean Platelet Volume 8.4; Monocytes # (A) 0.1 k/uL (0-1.0); Monocytes % (A) 5 %; Neutrophils # (A) 1.3 k/uL (1.3-7.7); Neutrophils % (A) 85 %; Platelet Count 153 k/uL (150-450); RBC 3.21 m/uL (4.30-5.90); WBC 1.5 k/uL (3.8-10.6)
[2020-04-23 09:55] LABS: ALT 29 U/L (4-49); AST 54 U/L (17-59); African American GFR (CKD) >90 (>60 ml/min/1.73 sqM); Albumin 3.5 g/dL (3.5-5.0); Alkaline Phosphatase 113 U/L (38-126); Anion Gap 10 mmol/L; Blood Urea Nitrogen 12 mg/dL (9-20); Calcium 8.7 mg/dL (8.4-10.2); Carbon Dioxide 25 mmol/L (22-30); Chloride 101 mmol/L (98-107); Glucose 116 mg/dL (74-99); Magnesium 1.8 mg/dL (1.6-2.3); Non-African American GFR(CKD) >90 (>60 ml/min/1.73 sqM); Sodium 136 mmol/L (137-145); Total Bilirubin 1.4 mg/dL (0.2-1.3); Total Protein 6.8 g/dL (6.3-8.2)
[2020-04-23 09:56] LABS: Potassium 4.1 mmol/L (3.5-5.1)
[2020-04-23] MEDS ORDERED: NALOXONE 0.4 MG/ML 1 ML VIAL IV PRN (10:19)
[2020-04-23] MEDS: SODIUM CHLORIDE 0.9% 1,000 ML IV SCH (11:22)
--- NOTE | 2020-04-23 14:47 | P.CONS ---
History of Present Illness - Reason for Consult Consult date: 04/23/20 on immunotherapy Requesting physician: Carlos Washburn - Chief Complaint Abdominal Pain, Nausea and vomiting - History of Present Illness Mr Dotson is well known to our practice for treatment of his metastatic cancer. he is currently undergoing treatment with opdivo, status post 14 cycles, last 04/22/20. He now presents to [facility] for increased abdominal pain, nausea and vomiting. General surgery consult has been placed by Emergency to evaluate Peg tube functioning. Surgery has evaluated patient. Dr. Barron and myself have seen patient and on exam pain is localized around area of peg. He has bowel sounds and moving bowels adequately. He denies any fevers, but has had some subjective fevers. Last hospital admission March 03 for fever of unknown origin. Oncologic History: He was initially seen in consult at [facility] on 11/19/17. He had presented with the development of swelling in the right neck, progressively increasing over the last month. He had developed associated changes in speech, feeling of nasal congestion, as well as difficulty in swallowing. He also noted audible changes in his breath sounds. The mass was hard but not painful. CT scan of the neck showed a 4 by 3 cm mass involving the right tonsil extending inferiorly into the hypopharynx on the right. The downward extension measuring approximately 6 cm. The mass was noted to cross the midline. Tumor was also felt to involve anterior triangle right-sided cervical lymph nodes. CT chest abdomen and pelvis was negative other than a 1.5 x 2 cm focus in the liver, which was felt to be indeterminate. The patient was seen by various specialties, including ENT, gastroenterology, and pulmonary medicine. He was felt to be in danger of imminent airway compromise and underwent tracheostomy. As he was having significant difficulty in swallowing already, he also had an EGD with PEG placement. He had biopsies on 11/22/17, from the pharyngeal mass, as well as FNA of one of the right-sided neck nodes. 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 The patient was subsequently discharged, and had a PET scan as an outpatient. This was done on 12/03/17. This showed a very large hypermetabolic fungating ma ss extending along the lower nasopharynx, involving the soft palate, and the region of the palatine tonsils with extension into the right base of tongue and the right parapharyngeal space. The lower right nasopharyngeal airway was obliterated. The mass measured 6.6 cm by 5.6 cm. 1.3 cm nodularity in the right parapharyngeal space was noted showing intense uptake with SUV of 8.4, while SUV in the mass was 22.2. There was large, dominant soft tissue mass in the right level IIA measuring 4 cm with max SUV 11. A couple of submandibular nodes were involved measuring 1.7 cm with SUV of 7.1 There was evidence of right cervical lymph node involvement, with level 2/3 lymph nodes measuring 1.9 cm, SUV 8.4, level IV lymph node measuring 1.7 cm, SUV 9.2. Inflammatory uptake was noted around the tracheostomy, and PEG tube site. There is no evidence of distant metastatic disease. He was seen for his first office visit on 12/04/17. He was referred to Rad Onc. After their evaluation of his PET, it was felt that he would benefit from induction chemo. he was set up to start Cisplatin and Taxotere, but then decided to proceed with hospice, as apparently he could not handle the impact of the diagnosis and treatment plan psychologically In late 01/29 he and his family decided to come off hospice and seek active treatment. He was seen by Rad Onc. Case was d/w them and PET ordered. This showed additional disease in the rt c area, left upper cervical node. He had 2 areas of uptake in the t spine, with low SUV in the 2 range, and no corresponding lesion on CT. These were felt to be non specific It was thus decided to proceed with the same plan for induction chemo. The regimen was changed to Carbo/Taxol/Erbitux, due to some drop in his PS. He was admitted to [facility] due upper airway congestion, bleedng from trach site and possible aspiration penumonia. He improved with steroids, antibiotics, and change of the trach to a longer one, and was discharged on 02/25/18 He completed 3 cycles on 05/13/18, with an excellent response, clinically and by PET. PET incidentally showed a pneumomediastinum. The pt was sent to the ER, with no intervention needed as it resolved on f/u X ray. He was then started on RT, and continued the same regimen , on a weekly schedule. He completed chemoRT in the 1st wk of 07/31. Tracheostomy was removed in 08/30. PET scan in 09/30 showed improved uptake in the temi area, with decrease in soft tissue at the primary site though uptake was slightly increased. He was then seen by Dr Grayson, with multiple biopsies. Per the pt, one area was suspicious, but felt to be most likely negative on second opinion PET from 01/11/19 showed further decrease in uptake in the base of the tongue and temi areas, but new uptake with sclerosis in transverse process of T9 , and the rt hip the patient had an MRI, which did not show suspicious findings in the thoracic spine, but did indicate that the lesions in the right hip area more s uspicious. The case was discussed with radiation oncology, who also felt that the findings were suspicious. The patient was therefore referred for a bone biopsy which he had on 03/12/19, from T9. This came back positive for squamous cell carcinoma consistent with metastatic head and neck primary. he received radiation to the T9 lesion, completing that in 04/07 The pt was then started on 2 nd line systemic therapy with Opdivo on 04/18/19 and is s/p 13 cycles Telemedicine 06/25/19: the patient is tolerating his regimen well subjectively. He denied any changes in respiratory status, or diarrhea. He denied any f/c/n/v. Swallowing is still quite compromised, with aspiration occurring with attempts. He is thus using the PEG exclusively, and is up to 6 cans/d. He is continuing speech therapy. He is tolerating TFs well. His respiratory status is fair . He has improved upper airway secretions. No recurrence of bleeding noted. he denied any new bone pains, but his significant other indicated that he has been having some mid back pain off and on.. He does have b/l hip roper, R > L, but this is chronic , due to DJD, and occurs usually on increased activity. this is actually improved His ROS is otherwise as per HPI and negative out of 10. as above. PET scan from 07/27/19 showed further improvement in upper airway uptake. Distribution in osseous structures were stable. he was referred back to radiation oncology and received SB RT to the right hip lesion in 08/31 the patient had 2 admissions in 03/03, for fever. CT scans appeared to show some inflammatory changes versus neoplastic recurrence in the left submandibular/left neck area. ENT examination was nonspecific. The patient did improve with antibiotics. He had follow-up PET scan post discharge on 03/22/20. This actually showed no significant uptake in the left submandibular/left neck area. However there was concern for progression with new areas of uptake in the left sternum, right lobe of the liver, and at L5. he had an ENT examination at [facility] after discharge, with no evidence of local progression or abscess noted the case was discussed with radiation oncology, Dr. Perera, who on review of his PET scan did feel that there was progression at L5 and in the right lobe of the liver, with the sternal lesion being less specific. The involvement appeared to be limited, and was felt to be amenable to SB RT. The patient completed the same to the spine on 04/13/20. He will start radi ation to the liver lesion on 04/21/20. he denied any fever/chills/nausea/vomiting. in energy level is reduced but stable, and according to his family he sleeps a lot. He continues to have significant prominent soft tissue in the submandibular area. He continues to feed himself exclusively for the PEG tube. He required PEG replacement last wk. He also has a mild scattered skin rash on the distal upper extremities and on the scalp. He is able to swallow his secretions without a problem, but has not been doing any speech therapy because of the coronavirus epidemic. Upper airway secretions are further improved. he is not able to swallow any food, however. Back and hip pain have markedly improved. Review of systems otherwise as per HPI and negative out of 10 the patient has completed radiation to the L-spine. He will start SB RT to the liver lesion tomorrow. CBC shows hemoglobin of 9.8, WBC 2.1 with ANC 1.7, and platelets 1:15. The drop in blood counts is most likely related to radiation effect. - He is tolerating opdivo well. Continue same. Check labs - Repeat imaging in about 5-6 weeks after completion of radiation. If the patient is showing progression in the radiated areas and/or development of progressive disease in other areas, then we will discuss change of systemic therapy. As noted previously the options in this situation would be Taxotere or 5-FU. It was again discussed with the patient and his family, that chances of clinical benefit in the third line, would be comparatively low, usually less than 30%. Review of Systems All systems: negative Constitutional: Reports as per HPI Past Medical History Past Medical History: Cancer, Osteoarthritis (OA) Additional Past Medical History / Comment(s): Esophageal cancer with trach, PEG tube x2 years History of Any Multi-Drug Resistant Organisms: None Reported Past Surgical History: Bowel Resection Additional Past Surgical History / Comment(s): Tracheostomy, and PEG tube, colostomy reversed December (2018) Past Anesthesia/Blood Transfusion Reactions: No Reported Reaction Past Psychological History: Anxiety, Depression Smoking Status: Former smoker Past Alcohol Use History: None Reported Past Drug Use History: None Reported - Past Family History Father Family Medical History: Cancer Additional Family Medical History / Comment(s): prostate cancer that spread to the brain Mother Family Medical History: Cancer Additional Family Medical History / Comment(s): ovarian cancer Sister(s) Family Medical History: Cancer Additional Family Medical History / Comment(s): breast cancer Medications and Allergies Home Medications Medication Instructions Recorded Confirmed Type PARoxetine HCL [Paxil] 10 mg PEG/G-TUBE HS 08/28/19 04/23/20 History Nivolumab [Opdivo] 100 mg IV QMONTHLY 10/27/19 04/23/20 History ALPRAZolam [Xanax] 0.5 mg PEG/G-TUBE BID 02/16/20 04/23/20 History Aspirin 81 mg PEG/G-TUBE DAILY 03/02/20 04/23/20 History Atorvastatin [Lipitor] 10 mg PEG/G-TUBE HS 03/02/20 04/23/20 History HYDROcodone/APAP 10-325MG [[place] 10 mg PO Q6HR PRN 04/15/20 04/23/20 History 10-325] Allergies Allergy/AdvReac Type Severity Reaction Status Date / Time adhesive tape Allergy Rash/Hives Verified 04/23/20 10:14 latex Allergy Rash/Hives Verified 04/23/20 10:14 Physical Exam Vitals: Vital Signs Temp Pulse Resp BP Pulse Ox 04/23/20 14:00 97.6 F 74 20 116/67 98 04/23/20 11:15 97.6 F 72 20 111/72 98 04/23/20 09:45 97.6 F 74 16 102/63 99 04/23/20 09:10 97.6 F 84 18 114/64 98 Intake and Output 04/22/20 04/23/20 04/23/20 22:59 06:59 14:59 Other: Weight 72.575 kg - Exam - Constitutional General appearance: Present: average body habitus, cooperative, no acute distress - EENT EENT Comment(s): the thrush on his tongue is peeling off, the tongue underneath is red and irritated but no open lesion Eyes: Present: anicteric sclerae ENT: Present: thrush - Neck Details: less fullness, redness is gone, not as tender, skin feels normal temp - Respiratory Respiratory: bilateral: CTA - Cardiovascular Rhythm: regular Heart sounds: normal: S1, S2 Abnormal Heart Sounds: Absent: systolic murmur, diastolic murmur, rub, S3 Gallop, S4 Gallop, click, other - Gastrointestinal General gastrointestinal: Present: normal bowel sounds, soft - Integumentary Integumentary: Present: normal - Musculoskeletal Musculoskeletal: Present: generalized weakness, strength equal bilaterally - Psychiatric Psychiatric: Present: A&O x's 3, appropriate affect, intact judgment & insight Results CBC & Chem 7: 04/23/20 09:33 04/23/20 09:33 Labs: Abnormal Lab Results - Last 24 Hours (Table) 04/23/20 04/23/20 Range/Units 09:33 09:33 WBC 1.5 L (3.8-10.6) k/uL RBC 3.21 L (4.30-5.90) m/uL Hgb 10.1 L (13.0-17.5) gm/dL Hct 29.8 L (39.0-53.0) % RDW 18.0 H (11.5-15.5) % Lymphocytes # 0.1 L (1.0-4.8) k/uL Sodium 136 L (137-145) mmol/L Creatinine 0.51 L (0.66-1.25) mg/dL Glucose 116 H (74-99) mg/dL Total Bilirubin 1.4 H (0.2-1.3) mg/dL Assessment and Plan Plan: - Labs CBC & Chem 7: 03/05/20 14:17 03/03/20 04:35 Assessment and Plan: Nausea/Vomiting and Abdominal Pain: - Unknown Etiology - Recently placed PEG tube, which is working - Localized tenderness to area surrounding peg tube, no obvious infectious process on clinical exam. - CT abdomen and Pelvis ordered Pancytopenia/Neutropenia - Patient status post palliative radiation to L-Spine, with radiation and possible acute infection/inflammatory both likely contributing to his pancytopenia - Roper cultures are pending - Subjective fevers and recent hospitalization for fevers, growth factor has been started - Daily CBC with Differential - Supportive transfusions if Hemoglobin less than 7, platelet count less than 10K Squamous cell carcinoma - Pt has been and continues on Opdivo since early last year, last treatment dose was 04/22/20 #14 - Recent progression to L spine - Status POst palliaitive radiation - Recent progression in liver and SBRT last week with Dr. Perera. - Follow-up with dr. Barron after discharge regarding treatment plan continuation or next line. . Physician Attest: I have completed the full history and physical and agree with above dictation, dictated as a scribe
--- NOTE | 2020-04-23 14:52 | P.GSCN ---
History of Present Illness Consult date: 04/23/20 History of present illness: CHIEF COMPLAINT: Abdominal pain HISTORY OF PRESENT ILLNESS: This 65-year-old male with a known history of head and neck cancer that was diagnosed 2 years ago. He is status post chemo and radiation. Patient has tight esophageal stricture and initially had a PEG tube placed 2 years ago. It had been malfunctioning and GI service placed a new PEG tube on 04/15/2020. Patient has metastatic disease to the liver and back and has been undergoing radiation treatments. His last radiation treatment was yesterday. He has had diarrhea over the last 3 days. He is complaining of diffuse abdominal pain. And reports nausea and vomiting that started yesterday. Patient and are concerned about the PEG tube that was recently placed. Per patient's she was told it was a difficult PEG tube placement. The PEG tube is working and functioning. and patient are concerned that the PEG tube is advanced to far. Apparently it was about 3 inches out further to keep apparatus away from the skin. Patient has been having some chills. He denies any fevers or sweats. Denies any difficulty urinating. PAST MEDICAL HISTORY: See list. PAST SURGICAL HISTORY: See list. MEDICATIONS: See list. ALLERGIES: See list. SOCIAL HISTORY: No illicit drug use. REVIEW OF SYSTEMS: CONSTITUTIONAL: Denies fever or chills. HEENT: Denies blurred vision, vision changes, or eye pain. Denies hemoptysis ENDOCRINE: Denies heat or cold intolerance. CARDIOVASCULAR: Denies chest pain or pressure. RESPIRATORY: No shortness of breath. GASTROINTESTINAL: Denies abdominal pain. Denies nausea or vomiting. NEURO: Denies history of seizures. PSYCH: No depression or suicidal ideation HEMATOLOGIC: Denies bleeding disorders. LYMPHATIC: The patient denies any lumps and bumps around the neck. GENITOURINARY: Denies any blood in urine or increased urinary frequency. MUSCULOSKELETAL: Denies myalgias. Denies joint swelling. Denies decreased range of motion beyond patients baseline. SKIN: Denies pruitis. Denies rash. PHYSICAL EXAM: VITAL SIGNS: Reviewed GENERAL: Well-developed in no acute distress. HEENT: No sclera icterus. Extraocular movements grossly intact. Moist buccal mucosa. Head is atraumatic, normocephalic. Hears conversational speech. No nasal drainage. NECK: Supple without lymphadenopathy. CHEST: Non-labored respirations and equal bilateral excursions. CARDIOVASCULAR: Palpable 2+ radial pulses. ABDOMEN: Soft. Nondistended. Mild diffuse tenderness with palpation. PEG tube site clean dry and intact. Minimal surrounding erythema around PEG tube MUSCULOSKELETAL: No clubbing or cyanosis. NEUROLOGIC: No focal or lateralizing signs. Cranial nerves II through XII grossly intact. PSYCH: Appropriate affect. Alert and oriented to person, place and time. SKIN: Well perfused. Good skin turgor. LABORATORY DATA: WBC 1.5 HGB 10.1 platelets are 153 creatinine 0.51 BUN 12 total bili 1.4 AST ALT normal albumin 3.5 Covid not detected IMAGING: ASSESSMENT: 1. Abdominal pain with nausea vomiting and diarrhea status post radiation treatment yesterday 2. Possible PEG tube malpositioning 3. History of head and neck cancer status post chemoradiation 4. History of metastatic disease to the liver and back and currently undergoing radiation treatment PLAN: -Recommend GI consult. Dr. Medina recently placed PEG tube 04/15/2020 -We'll check computed tomography scan of the abdomen and pelvis with IV contrast for further evaluation of abdominal pain and PEG tube positioning -Agree with oncology consult -Continue IV fluids -Continue supportive care -Further recommendations forthcoming per surgeon Thank you for this consultation Physician Weaving Teacher note has been reviewed by physician. Signing provider agrees with the documented findings, assessment, and plan of care. Past Medical History Past Medical History: Cancer, Osteoarthritis (OA) Additional Past Medical History / Comment(s): Esophageal cancer with trach, PEG tube x2 years History of Any Multi-Drug Resistant Organisms: None Reported Past Surgical History: Bowel Resection Additional Past Surgical History / Comment(s): Tracheostomy, and PEG tube, colostomy reversed December (2018) Past Anesthesia/Blood Transfusion Reactions: No Reported Reaction Past Psychological History: Anxiety, Depression Smoking Status: Former smoker Past Alcohol Use History: None Reported Past Drug Use History: None Reported - Past Family History Father Family Medical History: Cancer Additional Family Medical History / Comment(s): prostate cancer that spread to the brain Mother Family Medical History: Cancer Additional Family Medical History / Comment(s): ovarian cancer Sister(s) Family Medical History: Cancer Additional Family Medical History / Comment(s): breast cancer Medications and Allergies Home Medications Medication Instructions Recorded Confirmed Type PARoxetine HCL [Paxil] 10 mg PEG/G-TUBE HS 08/28/19 04/23/20 History Nivolumab [Opdivo] 100 mg IV QMONTHLY 10/27/19 04/23/20 History ALPRAZolam [Xanax] 0.5 mg PEG/G-TUBE BID 02/16/20 04/23/20 History Aspirin 81 mg PEG/G-TUBE DAILY 03/02/20 04/23/20 History Atorvastatin [Lipitor] 10 mg PEG/G-TUBE HS 03/02/20 04/23/20 History HYDROcodone/APAP 10-325MG [[place] 10 mg PO Q6HR PRN 04/15/20 04/23/20 History 10-325] Allergies Allergy/AdvReac Type Severity Reaction Status Date / Time adhesive tape Allergy Rash/Hives Verified 04/23/20 10:14 latex Allergy Rash/Hives Verified 04/23/20 10:14 Surgical - Exam Vital Signs Temp Pulse Resp BP Pulse Ox 97.6 F 84 18 114/64 98 04/23/20 09:10 04/23/20 09:10 04/23/20 09:10 04/23/20 09:10 04/23/20 09:10 Results - Labs 04/23/20 09:33 04/23/20 09:33 Abnormal Lab Results - Last 24 Hours (Table) 04/23/20 04/23/20 Range/Units 09:33 09:33 WBC 1.5 L (3.8-10.6) k/uL RBC 3.21 L (4.30-5.90) m/uL Hgb 10.1 L (13.0-17.5) gm/dL Hct 29.8 L (39.0-53.0) % RDW 18.0 H (11.5-15.5) % Lymphocytes # 0.1 L (1.0-4.8) k/uL Sodium 136 L (137-145) mmol/L Creatinine 0.51 L (0.66-1.25) mg/dL Glucose 116 H (74-99) mg/dL Total Bilirubin 1.4 H (0.2-1.3) mg/dL Diabetes panel 04/23/20 Range/Units 09:33 Sodium 136 L (137-145) mmol/L Potassium 4.1 (3.5-5.1) mmol/L Chloride 101 (98-107) mmol/L Carbon Dioxide 25 (22-30) mmol/L BUN 12 (9-20) mg/dL Creatinine 0.51 L (0.66-1.25) mg/dL Glucose 116 H (74-99) mg/dL Calcium 8.7 (8.4-10.2) mg/dL AST 54 (17-59) U/L ALT 29 (4-49) U/L Alkaline Phosphatase 113 (38-126) U/L Total Protein 6.8 (6.3-8.2) g/dL Albumin 3.5 (3.5-5.0) g/dL Calcium panel 04/23/20 Range/Units 09:33 Calcium 8.7 (8.4-10.2) mg/dL Albumin 3.5 (3.5-5.0) g/dL Pituitary panel 04/23/20 Range/Units 09:33 Sodium 136 L (137-145) mmol/L Potassium 4.1 (3.5-5.1) mmol/L Chloride 101 (98-107) mmol/L Carbon Dioxide 25 (22-30) mmol/L BUN 12 (9-20) mg/dL Creatinine 0.51 L (0.66-1.25) mg/dL Glucose 116 H (74-99) mg/dL Calcium 8.7 (8.4-10.2) mg/dL Adrenal panel 04/23/20 Range/Units 09:33 Sodium 136 L (137-145) mmol/L Potassium 4.1 (3.5-5.1) mmol/L Chloride 101 (98-107) mmol/L Carbon Dioxide 25 (22-30) mmol/L BUN 12 (9-20) mg/dL Creatinine 0.51 L (0.66-1.25) mg/dL Glucose 116 H (74-99) mg/dL Calcium 8.7 (8.4-10.2) mg/dL Total Bilirubin 1.4 H (0.2-1.3) mg/dL AST 54 (17-59) U/L ALT 29 (4-49) U/L Alkaline Phosphatase 113 (38-126) U/L Total Protein 6.8 (6.3-8.2) g/dL Albumin 3.5 (3.5-5.0) g/dL
[2020-04-23] MEDS: HYDROmorphone 0.5 MG/0.5 ML SYRINGE IVP PRN ×2 (15:11→20:35)
[2020-04-23] MEDS: ONDANSETRON 4 MG/2 ML VIAL IVP PRN ×2 (15:21→19:36)
--- NOTE | 2020-04-23 16:36 | CT ---
EXAMINATION TYPE: CT abdomen pelvis w con DATE OF EXAM: 04/23/2020 COMPARISON: CT abdomen April 02, 2020. PET CT HISTORY: Abdominal pain and nausea. History of head and neck cancer. CT DLP: 708.1 mGycm, Automated Exposure Control for Dose Reduction was Utilized. CONTRAST: CT scan of the abdomen and pelvis is performed without oral but with IV Contrast, patient injected wi th 100ml mL of Isovue 300. FINDINGS: LUNG BASES: Peripheral fibrotic change and nodularity. LIVER/GB: Hepatic metastatic disease redemonstrated. . There is 0.7 cm rim-enhancing lesion right h epatic dome and peripheral 1.5 cm rim-enhancing lesion right hepatic lobe axial image 18 redemonstrat ed. PANCREAS: No significant abnormality is seen. SPLEEN: No significant abnormality is seen. ADRENALS: No significant abnormality is seen. KIDNEYS: No significant abnormality is seen. BOWEL: Stable PEG tube. Surgical sutures right upper to mid abdomen from partial colectomy and small bowel anastomosis redemonstrated. Suboptimal evaluation of bowel without enteric contrast. No suspici ous dilatation. PROSTATE/SEMINAL VESICLES: Upper limits of normal. LYMPH NODES: No greater than 1cm abdominal or pelvic lymph nodes are appreciated. OSSEOUS STRUCTURES: Sclerotic superior L5 vertebra extending posteriorly correlates with the area of concern on PET/CT. OTHER: [id number]-[id number] calcified plaque. IMPRESSION: Stable hepatic metastatic disease and L5 osseous metastatic disease. No bowel obstruction . No new or acute findings seen.
[2020-04-23 16:54] LABS: Amorphous Sediment,Urine Few /hpf; Appearance,Urine Cloudy (Clear); Bilirubin,Urine Negative (Negative); Blood,Urine Negative (Negative); Color,Urine Yellow; Glucose,Urine (UA) Negative (Negative); Ketones,Urine 1+ (Negative); Leukocyte Esterase,Urine Negative (Negative); Mucus,Urine Rare /hpf; Nitrite,Urine Negative (Negative); PH, Urine 7.5 (5.0-8.0); Protein,Urine Negative (Negative); Specific Gravity,Urine 1.015 (1.001-1.035); Squamous Epithelial Cell,Urine <1 /hpf (0-4); Urobilinogen,Urine <2.0 mg/dL (<2.0); WBC,Urine 2 /hpf (0-5)
[2020-04-23] MEDS ORDERED: HYDROcodone/APAP 10-325MG 1 EACH TAB PO PRN (17:59)
[2020-04-23] MEDS ORDERED: NIVOLUMAB 100 MG/10 ML IV SCH (18:00)
[2020-04-23] MEDS ORDERED: IOPAMIDOL CONTRAST (ORAL USE) VIAL PO PRN (20:04)
[2020-04-23] MEDS: ATORVASTATIN 10 MG TAB PEG/G-TUBE SCH (20:37)
[2020-04-23] MEDS: ALPRAZolam 0.5 MG TAB PEG/G-TUBE SCH (20:37)
[2020-04-23] MEDS: PARoxetine 10 MG TAB PEG/G-TUBE SCH (20:37)
--- NOTE | 2020-04-23 22:06 | HP ---
HISTORY AND PHYSICAL This is a 65-year-old white male with metastatic cancer, status post 14 cycles with Opdivo apparently some throat cancer. He came to the hospital with some kind of abdominal pain, nausea, weakness, vomiting. PAST MEDICAL HISTORY: Esophageal cancer with trach, PEG tube for 2 years, esophageal dysmobility, tracheostomy. FAMILY HISTORY: Father with cancer of prostate. Mother with ovarian cancer. Sister with breast cancer. HOME MEDICINES: 1. Paxil 10 per the PEG tube. 2. Opdivo 100 mg IV q. month. 3. Xanax 0.5 per PEG tube b.i.d. 4. Aspirin 81 mg per PEG tube daily. 5. Lipitor 10 mg daily. 6. [place] 10 q.6 p.r.n. ALLERGIES: ADHESIVE and LASIX. PHYSICAL EXAMINATION: Temperature 97.6, pulse 70s to 80s, respiratory rate 18 to 20, blood pressure 102 over 60s to 70s, oxygen 98%. CONSTITUTIONAL: Average body habitus. Cooperative. No acute distress. HEENT: on his tongue. Tongue is red. NECK: Supple. LUNGS: Clear to auscultation. CARDIOVASCULAR: S1, S2. GI present. Normal bowel sounds. INTEGUMENT: Normal. MUSCULOSKELETAL: Generalized weakness. Strength equal bilaterally. PSYCH: Alert and oriented x3. LABS: White count 1.5, hemoglobin 10.1. Sodium 136, potassium 4.1. ASSESSMENT: 1. Nausea, vomiting, abdominal pain, etiology unknown. CT scan of the abdomen and pelvis is reviewed. Recently replaced PEG tube, which is working. Localized tenderness in surrounding area. No significant infection. 2. Pancytopenia, neutropenia, status post palliative radiation lumbar spine with radiation and possible acute infection, inflammatory. Cultures are pending. Transfusion if her hemoglobin goes below 7. 3. Recent progression to the lumbar spine and to the liver. Continue current treatment. Await surgical recommendations. MMODL / IJN: [id number] /
[2020-04-23] MEDS ORDERED: ACETAMINOPHEN IV (For NPO) 1,000 MG in EMPTY BAG 1 BAG IVPB STA (22:10)
[2020-04-23] MEDS ORDERED: ACETAMINOPHEN IV (For NPO) 1,000 MG in EMPTY BAG 1 BAG IVPB PRN (22:10)
[2020-04-23] MEDS: AMPICILLIN-SULBACTAM 3 GM in SODIUM CHLORIDE 0.9% 100 ML IVPB SCH (23:09)
[2020-04-24] MEDS: SODIUM CHLORIDE 0.9% 1,000 ML IV SCH ×3 (01:00→22:40)
[2020-04-24] MEDS: HYDROmorphone 0.5 MG/0.5 ML SYRINGE IVP PRN (04:47)
[2020-04-24] MEDS: ASPIRIN 81 MG PEG/G-TUBE SCH (07:13)
[2020-04-24] MEDS: AMPICILLIN-SULBACTAM 3 GM in SODIUM CHLORIDE 0.9% 100 ML IVPB SCH ×2 (07:32→16:17)
[2020-04-24] MEDS: ALPRAZolam 0.5 MG TAB PEG/G-TUBE SCH ×2 (07:32→20:38)
[2020-04-24 07:57] LABS: Anisocytosis Slight; Basophils % (A) 0 %; Eosinophils # (A) 0.1 k/uL (0-0.7); Eosinophils % (A) 2 %; HCT 25.7 % (39.0-53.0); HGB 8.8 gm/dL (13.0-17.5); Lymphocytes # (A) 0.1 k/uL (1.0-4.8); Lymphocytes % (A) 1 %; MCH 31.5 pg (25.0-35.0); MCHC 34.3 g/dL (31.0-37.0); MCV 91.9 fL (80.0-100.0); Mean Platelet Volume 7.8; Monocytes # (A) 0.1 k/uL (0-1.0); Monocytes % (A) 4 %; Neutrophils # (A) 3.5 k/uL (1.3-7.7); Neutrophils % (A) 92 %; Platelet Count 135 k/uL (150-450); RBC 2.79 m/uL (4.30-5.90); RDW 17.9 % (11.5-15.5); WBC 3.7 k/uL (3.8-10.6)
[2020-04-24 08:09] LABS: ALT 20 U/L (4-49); AST 33 U/L (17-59); African American GFR (CKD) >90 (>60 ml/min/1.73 sqM); Albumin 2.8 g/dL (3.5-5.0); Alkaline Phosphatase 92 U/L (38-126); Anion Gap 9 mmol/L; Blood Urea Nitrogen 11 mg/dL (9-20); Calcium 8.4 mg/dL (8.4-10.2); Carbon Dioxide 22 mmol/L (22-30); Chloride 107 mmol/L (98-107); Globulin 2.8 g/dL; Glucose 103 mg/dL (74-99); Non-African American GFR(CKD) >90 (>60 ml/min/1.73 sqM); Potassium 3.4 mmol/L (3.5-5.1); Sodium 138 mmol/L (137-145); Total Bilirubin 1.1 mg/dL (0.2-1.3); Total Protein 5.6 g/dL (6.3-8.2)
--- NOTE | 2020-04-24 09:45 | CONS ---
CONSULTATION DATE OF DICTATION: April 24, 2020. REASON FOR CONSULTATION: Abdominal pain at the PEG site. HISTORY OF PRESENT ILLNESS: The patient is a 65-year-old pleasant white male with history of metastatic head and neck cancer diagnosed about a year and a half ago, follows with Dr. Barron on an outpatient basis. He was admitted to hospital. He underwent a PEG tube replacement about a week ago because of PEG tube malfunction. He started developing some abdominal pain diffusely all over the abdomen associated with nausea, vomiting and diarrhea, and hence he was admitted to the hospital yesterday for further evaluation. There was a concern about PEG tube malfunction and hence we are consulted in regards to this issue. The patient today is complaining of pain in the lower abdominal area, some pain in the periumbilical area and occasional epigastric area. He had several episodes of nausea and vomiting yesterday, but that has resolved. He had diarrhea prior to hospitalization, but for the last 2 days he did not have any bowel movements. No rectal bleeding or melena. He denies any fever, chills, or night sweats. The patient was started on radiation therapy 5 days ago and he finished 2 days, but because of the ongoing abdominal pain, he did not have any more radiation yesterday or the day before. Oncology has been consulted. The patient was evaluated by Dr. Barron. PAST MEDICAL HISTORY: Significant for metastatic head and neck CA, history of degenerative joint disease, esophageal stricture from radiation therapy, status post PEG tube insertion 2 years ago which was replaced a week ago, history of tracheostomy. MEDICATIONS: Medications at home include Paxil, Opdivo, Xanax, Lipitor, [place]. ALLERGIES: TO ADHESIVE TAPE AND LATEX. SOCIAL HISTORY: Remote history of smoking. No alcohol use. FAMILY HISTORY: Father had prostate cancer. Mother had ovarian cancer. REVIEW OF SYSTEMS: CARDIOPULMONARY: He denies any chest pain or shortness of breath. GENITOURINARY: No dysuria. No hematuria. MUSCULOSKELETAL: Back pain. NEUROLOGY: Unremarkable. PSYCHIATRIC unremarkable. ENT vision unremarkable. GI as mentioned above. HEMATOLOGY unremarkable. ONCOLOGY as mentioned above. ENDOCRINE unremarkable. PHYSICAL EXAMINATION: He appears comfortable. No apparent distress. Vital signs stable. Blood pressure is 98/55. Pulse rate 114. Temperature 100.3. HEENT examination unremarkable. Conjunctivae pink. Sclerae anicteric. Oral cavity no lesions. NECK no JVD. No lymph node enlargement. CHEST was clear to auscultation. HEART: Regular rate and rhythm. ABDOMEN was soft. The PEG tube in place. There was some erythema noted around the PEG site, but no obvious cellulitis noted. There was mild tenderness in the lower abdominal area. No distention noted. EXTREMITIES: No pedal edema. SKIN no rashes. NEURO: He is alert and oriented x3. No focal deficits. LABS: Labs done at the time of admission to the hospital, WBC 1.5, hemoglobin 10.1, platelets 153. Basic metabolic panel is within normal limits. AST, ALT, T-bilirubin and alkaline phosphatase are within normal limits. El virus PCR is negative. IMPRESSION: 1. Metastatic head and neck CA for which the patient recently started on radiation therapy to the liver lesion a week ago. 2. Abdominal pain, nausea, vomiting, diarrhea for the last few days, probably related to radiation induced side effects. 3. Recent PEG tube replacement with a 30-[place] [employer] balloon replacement. On examination, the PEG tube appears to be in good position with no malfunction noted. CT of the abdomen and pelvis done yesterday showed good position of the PEG tube. 4. Fever and pancytopenia. RECOMMENDATIONS: 1. Continue with broad-spectrum antibiotics. 2. Symptomatic and supportive care. 3. We will start the PEG tube feeds at 10 mL an hour and slowly advance to 20 mL an hour and gradually as tolerated. 4. Will follow with you closely. Thank you for this consultation. MMODL / IJN: [id number] /
--- NOTE | 2020-04-24 11:15 | P.PN ---
Progress Note - Text Progress Note Date: 04/24/20 Patient is resting comfortably in his bed. He denies any significant pain. His PEG tube appears to be in appropriate position. Abdomen soft nontender Patient will continue receive supportive care.
--- NOTE | 2020-04-24 12:01 | PN ---
PROGRESS NOTE The patient has rigors and chills. He was started on Unasyn. Dr. Smith for consultation for possible leukopenia due to sepsis. He has seen a GI doctor for progressive nausea, vomiting. Impression was metastatic neck cancer. Possible radiation side effects causing abdominal pain. PEG tube replacement recently and they do not see any malfunction. Fever and pancytopenia on broad-spectrum antibiotics. Await for Dr. Smith's recommendation as PEG tube function. Monitor leukopenia which is improved from 1.5 to 3.7 today. Hemoglobin from 10.1, down to 8.8. Continue current treatment. PROGNOSIS: Guarded. MMODL / IJN: [id number] /
--- NOTE | 2020-04-24 15:30 | PN ---
PROGRESS NOTE DATE OF SERVICE: 04/24/2020 CHIEF COMPLAINT: Nauseated and abdominal pain. Juwan is seen today as a followup. He still has some nausea and some abdominal discomfort but overall he stated that he feels better. No fever or chills. CURRENT MEDICATION: Reviewed in his electronic medical record. PHYSICAL EXAMINATION: He is alert and oriented x3. He does not appear to be in distress. His vital signs are temperature 98.1, pulse 96, respiration 14, blood pressure 112/69. HEENT: Normocephalic, atraumatic. NECK: Supple. CHEST: Equal expansion bilaterally. LUNGS: Clear. HEART: Regular. ABDOMEN: Soft. There is no tenderness. Bowel sounds present. EXTREMITIES: Revealed no edema. SKIN: No significant bruises. LABORATORY DATA: WBC of 3.7, hemoglobin 8.8, hematocrit 25.7, platelet 135. Sodium 135, potassium 3.4, chloride 107, creatinine 0.64. AST and LFTs are within normal limits. CT scan of the abdomen and pelvis done yesterday revealed stable liver lesion. IMPRESSION: 1. Metastatic squamous cell carcinoma of the head and neck. The patient appears to be stable on immunotherapy, which he has been on it for quite some time. 2. Nausea, nausea and abdominal pain appear to be better. It could be possibly related to recent SBRT to his liver lesion which was recently started. I doubt this is related to his feeding tube. IMPRESSION AND RECOMMENDATION: May proceed with the starting the use of feeding tube today and we will monitor the patient closely. The above was discussed with the patient and I answered all his questions. MMODL / IJN: [id number] /
[2020-04-24] MEDS: PARoxetine 10 MG TAB PEG/G-TUBE SCH (20:38)
[2020-04-24] MEDS: ATORVASTATIN 10 MG TAB PEG/G-TUBE SCH (20:38)
[2020-04-25] MEDS: AMPICILLIN-SULBACTAM 3 GM in SODIUM CHLORIDE 0.9% 100 ML IVPB SCH ×4 (00:43→23:43)
[2020-04-25 08:59] LABS: Basophils # (A) 0 X 10*3/uL (0.00-0.10); Basophils % (A) 0 %; Eosinophils # (A) 0.09 X 10*3/uL (0.04-0.35); Eosinophils % (A) 4.2 %; HCT 26.4 % (39.6-50.0); HGB 8.2 g/dL (13.0-17.0); Lymphocytes # (A) 0.06 X 10*3/uL (0.90-5.00); Lymphocytes % (A) 2.8 %; MCH 29.6 pg (27.0-32.0); MCHC 31.1 g/dL (32.0-37.0); MCV 95.3 fL (80.0-97.0); Mean Platelet Volume 10.4 fL (9.5-12.2); Monocytes # (A) 0.11 X 10*3/uL (0.20-1.00); Monocytes % (A) 5.1 %; Neutrophils # (A) 1.88 X 10*3/uL (1.80-7.70); Neutrophils % (A) 87.4 %; Platelet Count 143 X 10*3/uL (140-440); RBC 2.77 X 10*6/uL (4.40-5.60); WBC 2.15 X 10*3/uL (4.50-10.00)
--- NOTE | 2020-04-25 09:26 | CT ---
EXAMINATION TYPE: CT soft tissue neck w con DATE OF EXAM: 04/25/2020 9:01 AM COMPARISON: 02/18/2020 HISTORY: Esophageal cancer CT DLP: 349.2 mGycm Automated exposure control for dose reduction was used. CONTRAST: CT scan of the neck is performed following with IV Contrast, patient injected with 100 mL of Isovue 3 00. Axial images are obtained, coronal and sagittal reformatted images are reviewed. FINDINGS: There is enlargement of the left lobe of the thyroid gland which contains 2 nodules one measuring 1.4 cm and the other measuring 2 cm. These were seen previously and are stable. The larynx is intact and there is no abnormality of the thyroid, cricoid and arytenoid cartilages. Th e vocal cords are symmetric. The great vessels the neck are normal. The tongue base is normal without evidence of mass. The aryepiglottic folds and epiglottis are normal. The right vallecula is obscured by soft tissue and this was seen previously the piriform sinuses are normal and symmetric. There is prominence of the t onsillar pillars which was seen previously and is stable. The nasopharynx and retropharyngeal soft tissues are normal. The parotid glands are normal and symmetric without evidence of mass. The submandibular glands are at rophic. There is no evidence of adenopathy in the neck. IMPRESSION: Some prominence in the soft tissues of the oropharynx with prominence of the tonsillar pillars and lo ss of the right vallecula. No definite masses seen in has been no significant interval change since t he prior study. There is no new lesion. There is no adenopathy or abscess.
[2020-04-25] MEDS: ALPRAZolam 0.5 MG TAB PEG/G-TUBE SCH ×2 (09:29→17:42)
[2020-04-25] MEDS: ASPIRIN 81 MG PEG/G-TUBE SCH (09:51)
--- NOTE | 2020-04-25 09:57 | CONS ---
CONSULTATION DATE OF SERVICE: 04/24/2020 REASON FOR CONSULTATION: Fever and concern for infection. 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 This patient is status post chemo and radiation therapy and is currently on immunotherapy. The patient was recently admitted to this facility in February of 2020 and there was concern for possible retropharyngeal abscess. ENT at this facility recommended no drainage and wanted the patient to be transferred to his own ENT. The patient was subsequently transferred to the outside facility. However, when asked specifically, the patient stated there was no surgical intervention or drainage of any abscess. The patient is now presenting to [facility] yesterday morning for evaluation of nausea, vomiting, abdominal pain. The patient's symptoms started the day he presented to the hospital. The patient states pain is mostly in the upper abdominal area, more of a dull aching, at times sharp 5 to 6 out of 10 and no radiation. The patient complaining of nausea but no vomiting and denies having any diarrhea. On presentation to the hospital, the patient was afebrile. Did spike a low grade fever of 100.3 this morning that has prompted this infectious disease consultation. He is sating 96 to 97% on room air. The patient was slightly leukopenic on admission. Repeat is 3.7. Creatinine has been normal. Liver enzymes remain slightly elevated. normal. Urine was negative. El PCR was negative. The patient also had a CT of abdomen and pelvis stable hepatic metastatic disease. No bowel obstruction. The patient has been started on Unasyn. Infectious Disease was consulted for further management of antibiotic therapy. REVIEW OF SYSTEMS: Positive points have been mentioned in HPI. Rest of the systems are negative. 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 PAST SURGICAL HISTORY: Tracheostomy and a PEG tube placement, bowel resection. SOCIAL HISTORY: Remote history of smoking. No drinking or drug use. FAMILY HISTORY: Father with history of prostate cancer. Mother history of ovarian cancer. ALLERGIES: TO LATEX and ADHESIVE TAPE. MEDICATIONS: The patient is currently on Braman, Xanax, 3 grams q.8 hours, , Lipitor, Dilaudid, Narcan, Opdivo, Zofran, Paxil, and IV fluid. PHYSICAL EXAMINATION: Blood pressure 126/59 with pulse of 90, temperature 98.1, T-max 100.3. He is 95% on room air. General description: The patient is an elderly man lying in bed in no distress. No tachypnea or accessory muscles of respiration use. HEENT: Shows pallor. No scleral icterus. Oral mucous membranes dry. NECK: Trachea central. No thyromegaly. LUNGS: Unlabored breathing, decreased breath sounds at bases. No wheeze or crackles. HEART S1, S2. Regular rate and rhythm. ABDOMEN soft. No tenderness. No guarding. No rigidity. EXTREMITIES are no edema of the feet. Examination of the neck: site did have slight swelling. No redness, no induration or drainage. NEUROLOGICAL: Patient is awake, alert, oriented times three. Mood and affect normal. LABS: Hemoglobin 8.8, white count 3.7, BUN of 11, creatinine 0.64. Electrolytes have been normal. Liver enzymes normal. Urine is negative. DIAGNOSTIC IMPRESSION AND PLAN: Patient admitted to the hospital with abdominal pain in this patient who does have metastatic squamous cell carcinoma of oropharyngeal area with mets to the liver. A CT of abdomen and pelvis did not show any acute abnormality. The patient did have a low- grade fever and leukopenia could be related to the lateral pharyngeal either tumor necrosis or an abscess that was seen on the last CT scan. Apparently no surgical intervention was done for it. PLAN: 1. We will obtain a CT of the neck soft tissue to make sure no evidence of any abscess or tumor necrosis fluid, fever and elevated white count. 2. As currently no other obvious focus of infection, CT of abdomen and pelvis was negative and no evidence of any cellulitis at the PEG tube site. 3. We will check inflammatory markers. 4. Continue with empiric Unasyn at this point. 5. We will follow on clinical condition and investigations to further adjust medication if needed. Thank you for this consultation. Will follow this patient along with you. MMODL / IJN: [id number] /
--- NOTE | 2020-04-25 10:34 | PN ---
PROGRESS NOTE DATE OF DICTATION: April 25, 2020 Patient is a 65-year-old pleasant white male admitted to the hospital with abdominal pain and pain around the PEG site that was recently replaced a week ago. CT of the abdomen showed proper position of the PEG tube. The patient was started on radiation therapy for hepatic lesions for metastatic head and neck CA 3 days ago, he was started on PEG tube feeds at 10 mL an hour and was gradually increased to 20 mL an hour and patient is able to tolerate it well. He is overall feeling much better. The abdominal pain has resolved. No more episodes of nausea, vomiting, or diarrhea. PHYSICAL EXAMINATION: He appears comfortable. No apparent distress. Vital signs stable. Blood pressure is 112 by 75, pulse rate 76, temperature 98.9. HEENT examination unremarkable. Conjunctivae pink. Sclerae anicteric. Oral cavity no lesions. NECK no JVD or lymph node enlargement. Prominence on the right side of the neck noted. HEART: Regular rate and rhythm. ABDOMEN: Soft. PEG tube in place. It was nondistended, nontender. EXTREMITIES: No pedal edema. NEURO: He is alert and oriented x3. No focal deficits. LABS: From today WBC 2.5, hemoglobin 8.2, platelets normal. Basic metabolic panel was not done. He had a CT of the neck done early this morning that showed some prominence in the soft tissue of the oropharynx with prominence of the tonsillar pillars and loss of right valleculae. No definite mass identified. IMPRESSION: 1. Metastatic head and neck CA with liver lesions, undergoing radiation therapy. He finished 2 sessions early last week. 2. PEG tube replacement a week ago. Currently on continuous tube feeds started at 10 mL an hour yesterday and increased to 20 mL and so far patient tolerating well. Abdominal pain, nausea, vomiting, and diarrhea has resolved. 3. 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 4. Mild pancytopenia. RECOMMENDATIONS: 1. Increase tube feeds gradually to achieve a goal rate of 60 mL an hour. Continue with antiemetics as needed. 2. Continue with symptomatic and supportive care. 3. We will follow with you closely. Thank you for this consultation. MMODL / IJN: [id number] /
[2020-04-25 11:08] LABS: African American GFR (CKD) 122.3 (60.0-200.0); Albumin 3.2 g/dL (3.80-4.90); Albumin/Globulin Ratio 1.39 (1.60-3.17); Anion Gap 7.7 mmol/L (4.00-12.00); BUN/Creat Ratio 23.33 Ratio (12.00-20.00); Calcium 8.2 mg/dL (8.7-10.3); Carbon Dioxide 23.3 mmol/L (21.6-31.8); Globulin 2.3 g/dL (1.6-3.3); Non-African American GFR(CKD) 105.5 (60.0-200.0); Total Bilirubin 0.8 mg/dL (0.2-1.2); Total Protein 5.5 g/dL (6.2-8.2)
[2020-04-25 11:39] LABS: C Reactive Protein 8.7 mg/dL (0.0-0.8)
[2020-04-25] MEDS ORDERED: POTASSIUM BICARBONATE/CIT AC 20 MEQ TABLET.EFF PO ONE (13:00)
--- NOTE | 2020-04-25 14:28 | PN ---
PROGRESS NOTE HISTORY: 65-year-old white male came in the hospital with abdominal pain around the PEG tube. GI advanced his diet and increased the fluid through the PEG tube. PEG tube was stable they said. I think his symptoms are more secondary to the radiation side effects versus neutropenic fever. Broad-spectrum Unasyn has been given as he had rigors and chills a couple days ago. He feels better after starting the Unasyn. Cultures are all pending. Blood pressure 112/75, pulse 70 to 76, temp 98.9. HEART: Regular rate and rhythm. ABDOMEN is soft. PEG tube in place. EXTREMITIES: No cyanosis, clubbing or edema. White count 2.5, hemoglobin is 8.2, platelets normal. CT scan of the head and neck showed some thyroid nodules, otherwise negative. No definitive masses seen. IMPRESSION AND PLAN: 1. Apparently has some metastatic head and neck cancer into the bone and into the liver with for which radiation has been given. PEG tube replacement which is being advanced at this time. 2. Pancytopenia. 3. I suspect he has some sepsis due to neutropenia due to increased rigors, which improved with Unasyn. 4. Would look for some abscess, wait for Dr. Smith's recommendations. 5. Continue current treatments. 6. Advanced PEG tube feedings. MMODL / IJN: [id number] /
[2020-04-25] MEDS: SODIUM CHLORIDE 0.9% 1,000 ML IV SCH ×2 (16:11→19:50)
--- NOTE | 2020-04-25 19:14 | PN ---
PROGRESS NOTE DATE OF SERVICE: 04/25/2020 REASON FOR FOLLOWUP VISIT: Fever. INTERVAL HISTORY: Patient is currently afebrile. The patient is breathing comfortably. Denies having any chest pain. No shortness of breath or cough. No abdominal pain or diarrhea. PHYSICAL EXAMINATION: Blood pressure 123/70 with a pulse of 71. Temperature 99.7. He is 97% on room air. General description is an elderly male lying in bed in no distress. Respiratory system: Unlabored breathing, clear to auscultation anteriorly. Heart S1, S2. Regular rate and rhythm. ABDOMEN: Soft, no tenderness. LABS: Hemoglobin 8.8, white count 2.15, creatinine 0.6. CT of the neck did not show any abscess. DIAGNOSTIC IMPRESSION AND PLAN: Patient with a history of oropharyngeal cancer status post chemo and radiation with recent concern for possible abscess. However, CT this admission did not show any abscess. Did have a low-grade fever and did have some leukopenia. Fever responding to Unasyn to continue and monitor clinical course. MMODL / IJN: [id number] /
[2020-04-25] MEDS: PARoxetine 10 MG TAB PEG/G-TUBE SCH (20:26)
[2020-04-25] MEDS: ATORVASTATIN 10 MG TAB PEG/G-TUBE SCH (20:26)
[2020-04-26 00:27] LABS: Glucose,Whole Blood 112 mg/dL (75-99)
[2020-04-26] MEDS: AMPICILLIN-SULBACTAM 3 GM in SODIUM CHLORIDE 0.9% 100 ML IVPB SCH ×2 (07:37→16:17)
[2020-04-26] MEDS: ALPRAZolam 0.5 MG TAB PEG/G-TUBE SCH ×2 (07:38→20:34)
[2020-04-26] MEDS: ASPIRIN 81 MG PEG/G-TUBE SCH (07:38)
[2020-04-26 09:48] LABS: HCT 27.7 % (39.6-50.0); HGB 8.7 g/dL (13.0-17.0); MCH 30.1 pg (27.0-32.0); MCHC 31.4 g/dL (32.0-37.0); MCV 95.8 fL (80.0-97.0); Mean Platelet Volume 10.5 fL (9.5-12.2); Platelet Count 152 X 10*3/uL (140-440); RBC 2.89 X 10*6/uL (4.40-5.60); RDW 18.1 % (11.5-14.5); WBC 2.14 X 10*3/uL (4.50-10.00)
[2020-04-26 09:57] LABS: African American GFR (CKD) 122.3 (60.0-200.0); Albumin 3.4 g/dL (3.80-4.90); Albumin/Globulin Ratio 1.42 (1.60-3.17); Anion Gap 10.5 mmol/L (4.00-12.00); BUN/Creat Ratio 18.33 Ratio (12.00-20.00); Calcium 8.5 mg/dL (8.7-10.3); Carbon Dioxide 21.5 mmol/L (21.6-31.8); Globulin 2.4 g/dL (1.6-3.3); Magnesium 1.5 mg/dL (1.5-2.4); Non-African American GFR(CKD) 105.5 (60.0-200.0); Potassium 3.1 mmol/L (3.5-5.5); Total Bilirubin 0.7 mg/dL (0.2-1.2); Total Protein 5.8 g/dL (6.2-8.2)
[2020-04-26 11:03] LABS: Basophils # (A) 0 X 10*3/uL (0.00-0.10); Basophils % (A) 0 %; Eosinophils # (A) 0.11 X 10*3/uL (0.04-0.35); Eosinophils % (A) 5.1 %; Lymphocytes # (A) 0.09 X 10*3/uL (0.90-5.00); Lymphocytes % (A) 4.2 %; Monocytes # (A) 0.13 X 10*3/uL (0.20-1.00); Monocytes % (A) 6.1 %; Neutrophils % (A) 84.1 %
[2020-04-26 11:04] LABS: Hypochromasia (M) 2+
[2020-04-26 11:35] LABS: Glucose,Whole Blood 95 mg/dL (75-99)
--- NOTE | 2020-04-26 14:26 | P.PN ---
Subjective Progress Note Date: 04/26/20 Patient seen and evaluated. He reports improvement of his abdominal pain. Main concern includes type of gastrostomy tube for which they choose to change. Patient has progressive esophageal cancer. At this time, no further surgical intervention needed. He is tolerating tube feeds. Minimal erythema at G-tube insertion site without active infection. Objective - Vital Signs Vital signs: Vital Signs Temp 98.2 F 04/26/20 11:28 Pulse 83 04/26/20 11:28 Resp 18 04/26/20 11:28 BP 139/82 04/26/20 11:28 Pulse Ox 99 04/26/20 11:28 Intake & Output 04/25/20 04/26/20 04/26/20 18:59 06:59 18:59 Intake Total 260 1165 Balance 260 1165 Weight 71.6 kg 71.8 kg Intake: Intake, IV Titration 825 Amount Ampicillin-Sulbactam 3 gm 100 In Sodium Chloride 0.9% 100 ml @ 200 mls/hr IVPB Q8HR [facility] Rx#:[id number] Sodium Chloride 0.9% 1, 725 000 ml @ 75 mls/hr IV . [id number] [facility] Rx#:[id number] Tube Feeding 260 340 Other: Voiding Method Urinal Urinal Urinal # Voids 1 - Labs CBC & Chem 7: 04/26/20 04:59 04/26/20 04:59 Labs: Abnormal Lab Results - Last 24 Hours (Table) 04/26/20 04/26/20 04/26/20 Range/Units 00:25 04:59 04:59 WBC 2.14 L (4.50-10.00) X 10*3/uL RBC 2.89 L (4.40-5.60) X 10*6/uL Hgb 8.7 L (13.0-17.0) g/dL Hct 27.7 L (39.6-50.0) % MCHC 31.4 L (32.0-37.0) g/dL RDW 18.1 H (11.5-14.5) % Lymphocytes # 0.09 L (0.90-5.00) X 10*3/uL Monocytes # 0.13 L (0.20-1.00) X 10*3/uL Potassium 3.1 L (3.5-5.5) mmol/L Carbon Dioxide 21.5 L (21.6-31.8) mmol/L POC Glucose (mg/dL) 112 H (75-99) mg/dL Calcium 8.5 L (8.7-10.3) mg/dL AST 36 H (14-35) U/L Total Protein 5.8 L (6.2-8.2) g/dL Albumin 3.40 L (3.80-4.90) g/dL Albumin/Globulin Ratio 1.42 L (1.60-3.17) g/dL Microbiology - Last 24 Hours (Table) 04/23/20 22:11 Blood Culture - Preliminary Blood No Growth after 48 hours 04/23/20 21:55 Blood Culture - Preliminary Blood No Growth after 48 hours
--- NOTE | 2020-04-26 14:47 | PN ---
PROGRESS NOTE DATE OF SERVICE: 04/26/2020 REASON FOR FOLLOWUP: Fever. INTERVAL HISTORY: The patient is currently afebrile. He seems to be breathing comfortably. Denies having any chest pain or shortness of breath or cough. Abdominal pain has improved. No nausea, no vomiting. No diarrhea. PHYSICAL EXAMINATION: Blood pressure 139/82 with a pulse of 83, temperature 98.2. He is 99% on room air. General description is an elderly male up in the bed in no distress. RESPIRATORY SYSTEM: Unlabored breathing, clear to auscultation. HEART: S1, S2. Regular rate and rhythm. ABDOMEN: Soft, no tenderness. LABS: Hemoglobin is 8.7, white count 2.14, BUN of 11, creatinine 0.6. Blood culture has been negative. DIAGNOSTIC IMPRESSION AND PLAN: Patient with low-grade fever, leukopenia, in this patient who did have oropharyngeal cancer, metastatic with fever responding to the Unasyn continue with cultures negative. Finish therapy with short course of oral Augmentin and close outpatient followup. MMODL / IJN: [id number] /
--- NOTE | 2020-04-26 16:07 | P.PN ---
Subjective Progress Note Date: 04/26/20 Principal diagnosis: Nausea and vomiting, pain at PEG tube site This is a pleasant 65-year-old white male patient who was admitted to the hospital with abdominal pain and pain around the PEG tube site that was recently placed a week ago. CT of the abdomen showed proper position of the PEG tube. The patient was started on radiation therapy for hepatic lesions for metastatic head and neck cancer. Patient is seen and examined sitting up at the bedside. He states his nausea and vomiting has improved significantly. He is tolerating his tube feeds. His rate is at 50 mL per hour. He is denying any abdominal pain, nausea, or vomiting. Objective - Vital Signs Vital signs: Vital Signs Temp 97.8 F 04/26/20 05:35 Pulse 77 04/26/20 05:35 Resp 20 04/26/20 05:35 BP 137/73 04/26/20 05:35 Pulse Ox 96 04/26/20 05:35 Intake & Output 04/25/20 04/26/20 04/26/20 18:59 06:59 18:59 Intake Total 260 1165 Balance 260 1165 Weight 71.6 kg 71.8 kg Intake: Intake, IV Titration 825 Amount Ampicillin-Sulbactam 3 gm 100 In Sodium Chloride 0.9% 100 ml @ 200 mls/hr IVPB Q8HR [facility] Rx#:[id number] Sodium Chloride 0.9% 1, 725 000 ml @ 75 mls/hr IV . [id number] [facility] Rx#:[id number] Tube Feeding 260 340 Other: Voiding Method Urinal Urinal Urinal # Voids 1 - Exam General appearance: The patient is alert, oriented, appears in no acute distress. HET: Head is normocephalic and atraumatic. Conjunctiva pink. Sclera anicteric. Neck: Supple without lymphadenopathy. Abdomen: Soft, nontender, PEG tube intact without drainage, nondistended with bowel sounds. No guarding or rigidity. Extremities: Normal skin color and turgor. No pedal edema Skin: No rashes, no jaundice Neurological: No focal deficits. Alert and oriented 3. - Labs CBC & Chem 7: 04/26/20 04:59 04/26/20 04:59 Labs: Abnormal Lab Results - Last 24 Hours (Table) 04/25/20 04/26/20 04/26/20 Range/Units 05:14 00:25 04:59 WBC 2.14 L (4.50-10.00) X 10*3/uL RBC 2.89 L (4.40-5.60) X 10*6/uL Hgb 8.7 L (13.0-17.0) g/dL Hct 27.7 L (39.6-50.0) % MCHC 31.4 L (32.0-37.0) g/dL RDW 18.1 H (11.5-14.5) % Lymphocytes # 0.09 L (0.90-5.00) X 10*3/uL Monocytes # 0.13 L (0.20-1.00) X 10*3/uL Potassium (3.5-5.5) mmol/L Carbon Dioxide (21.6-31.8) mmol/L POC Glucose (mg/dL) 112 H (75-99) mg/dL Calcium (8.7-10.3) mg/dL AST (14-35) U/L C-Reactive Protein 8.7 H (0.0-0.8) mg/dL Total Protein (6.2-8.2) g/dL Albumin (3.80-4.90) g/dL Albumin/Globulin Ratio (1.60-3.17) g/dL 04/26/20 Range/Units 04:59 WBC (4.50-10.00) X 10*3/uL RBC (4.40-5.60) X 10*6/uL Hgb (13.0-17.0) g/dL Hct (39.6-50.0) % MCHC (32.0-37.0) g/dL RDW (11.5-14.5) % Lymphocytes # (0.90-5.00) X 10*3/uL Monocytes # (0.20-1.00) X 10*3/uL Potassium 3.1 L (3.5-5.5) mmol/L Carbon Dioxide 21.5 L (21.6-31.8) mmol/L POC Glucose (mg/dL) (75-99) mg/dL Calcium 8.5 L (8.7-10.3) mg/dL AST 36 H (14-35) U/L C-Reactive Protein (0.0-0.8) mg/dL Total Protein 5.8 L (6.2-8.2) g/dL Albumin 3.40 L (3.80-4.90) g/dL Albumin/Globulin Ratio 1.42 L (1.60-3.17) g/dL Microbiology - Last 24 Hours (Table) 04/23/20 22:11 Blood Culture - Preliminary Blood No Growth after 48 hours 04/23/20 21:55 Blood Culture - Preliminary Blood No Growth after 48 hours Assessment and Plan (1) Abdominal pain Narrative/Plan: This is a patient who has been diagnosed with 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 He had a PEG tube replacement a week ago. He came in with complaints of abdominal pain at the PEG tube. 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 The pain has now resolved and he has increased his tube feedings and is currently at 50 mL per hour. 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 Current Visit: Yes Status: Acute Code(s): R11.2 - NAUSEA WITH VOMITING, UNSPECIFIED SNOMED Code(s): 49810072 Plan: 1. Supportive care 2. Continue to increase tube feeding gradually local rate of 60 mL an hour. 3. Continue with antiemetics as needed Thank you for this consultation, We will continue to follow with you closely Dr. Lesia Medina I agree with the dictator's note, documented as a scribe by Lindsey Carvajal.
[2020-04-26] MEDS: SODIUM CHLORIDE 0.9% 1,000 ML IV SCH (16:17)
[2020-04-26 17:37] LABS: Glucose,Whole Blood 107 mg/dL (75-99)
--- NOTE | 2020-04-26 17:54 | P.PN ---
Subjective Progress Note Date: 04/26/20 Principal diagnosis: abdominal pain tolerating feedings, feeling better Objective - Vital Signs Vital signs: Vital Signs Temp 98.2 F 04/26/20 11:28 Pulse 83 04/26/20 11:28 Resp 18 04/26/20 11:28 BP 139/82 04/26/20 11:28 Pulse Ox 99 04/26/20 11:28 Intake & Output 04/25/20 04/26/20 04/26/20 18:59 06:59 18:59 Intake Total 260 1165 Balance 260 1165 Weight 71.6 kg 71.8 kg Intake: Intake, IV Titration 825 Amount Ampicillin-Sulbactam 3 gm 100 In Sodium Chloride 0.9% 100 ml @ 200 mls/hr IVPB Q8HR [facility] Rx#:[id number] Sodium Chloride 0.9% 1, 725 000 ml @ 75 mls/hr IV . [id number] [facility] Rx#:[id number] Tube Feeding 260 340 Other: Voiding Method Urinal Urinal Urinal # Voids 1 - Exam - Exam - Constitutional General appearance: Present: average body habitus, cooperative, no acute distress - EENT EENT Comment(s): the thrush on his tongue is peeling off, the tongue underneath is red and irritated but no open lesion Eyes: Present: anicteric sclerae ENT: Present: thrush - Neck Details: less fullness, redness is gone, not as tender, skin feels normal temp - Respiratory Respiratory: bilateral: CTA - Cardiovascular Rhythm: regular Heart sounds: normal: S1, S2 Abnormal Heart Sounds: Absent: systolic murmur, diastolic murmur, rub, S3 Gallop, S4 Gallop, click, other - Gastrointestinal General gastrointestinal: Present: normal bowel sounds, soft - Integumentary Integumentary: Present: normal - Musculoskeletal Musculoskeletal: Present: generalized weakness, strength equal bilaterally - Psychiatric Psychiatric: Present: A&O x's 3, appropriate affect, intact judgment & insight - Labs CBC & Chem 7: 04/26/20 04:59 04/26/20 04:59 Labs: Abnormal Lab Results - Last 24 Hours (Table) 04/26/20 04/26/20 04/26/20 Range/Units 00:25 04:59 04:59 WBC 2.14 L (4.50-10.00) X 10*3/uL RBC 2.89 L (4.40-5.60) X 10*6/uL Hgb 8.7 L (13.0-17.0) g/dL Hct 27.7 L (39.6-50.0) % MCHC 31.4 L (32.0-37.0) g/dL RDW 18.1 H (11.5-14.5) % Lymphocytes # 0.09 L (0.90-5.00) X 10*3/uL Monocytes # 0.13 L (0.20-1.00) X 10*3/uL Potassium 3.1 L (3.5-5.5) mmol/L Carbon Dioxide 21.5 L (21.6-31.8) mmol/L POC Glucose (mg/dL) 112 H (75-99) mg/dL Calcium 8.5 L (8.7-10.3) mg/dL AST 36 H (14-35) U/L Total Protein 5.8 L (6.2-8.2) g/dL Albumin 3.40 L (3.80-4.90) g/dL Albumin/Globulin Ratio 1.42 L (1.60-3.17) g/dL 04/26/20 Range/Units 17:01 WBC (4.50-10.00) X 10*3/uL RBC (4.40-5.60) X 10*6/uL Hgb (13.0-17.0) g/dL Hct (39.6-50.0) % MCHC (32.0-37.0) g/dL RDW (11.5-14.5) % Lymphocytes # (0.90-5.00) X 10*3/uL Monocytes # (0.20-1.00) X 10*3/uL Potassium (3.5-5.5) mmol/L Carbon Dioxide (21.6-31.8) mmol/L POC Glucose (mg/dL) 107 H (75-99) mg/dL Calcium (8.7-10.3) mg/dL AST (14-35) U/L Total Protein (6.2-8.2) g/dL Albumin (3.80-4.90) g/dL Albumin/Globulin Ratio (1.60-3.17) g/dL Microbiology - Last 24 Hours (Table) 04/23/20 22:11 Blood Culture - Preliminary Blood No Growth after 48 hours 04/23/20 21:55 Blood Culture - Preliminary Blood No Growth after 48 hours Assessment and Plan Plan: Assessment and Plan: Nausea/Vomiting and Abdominal Pain: - Unknown Etiology - Stable improving - Recently placed PEG tube, which is working and he is tolerating - gen surgery following Pancytopenia/Neutropenia - Subjective fevers and recent hospitalization for fevers, growth factor has been started - Daily CBC with Differential - Supportive transfusions if Hemoglobin less than 7, platelet count less than 10K Squamous cell carcinoma - Pt has been and continues on Opdivo since early last year, last treatment dose was 04/22/20 #14 - Recent progression to L spine - Status POst palliaitive radiation - Recent progression in liver and SBRT last week with Dr. Perera. - Follow-up with dr. Barron after discharge regarding treatment plan continuation or next line. . Review of CT liver and L4 without change from prior imaging. Physician Attest: I have completed the full history and physical and agree with above dictation, dictated as a scribe
--- NOTE | 2020-04-26 18:46 | PN ---
PROGRESS NOTE This is a 65-year-old white male who was admitted with progressive chills, tube feeding replacement with improved rigors with IV Unasyn. No nausea, vomiting or diarrhea. His blood pressure is 130s over 80s, pulse is 80s, temperature 98, oxygenation 99% on room air. He looks comfortable. Lungs are clear. CARDIOVASCULAR: S1, S2. Abdomen: His PEG tube is in place. White count 2.14, hemoglobin is 8.7, creatinine 0.6, BUN 11. Blood culture negative. ASSESSMENT: 1. Neutropenic sepsis,. 2. Oropharyngeal cancer. 3. 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 Responding to the Unasyn. So far cultures are all negative. oral Augmentin to go home with in the near future, pending Dr. Smith's recommendation. MMODL / IJN: [id number] /
[2020-04-26] MEDS: ATORVASTATIN 10 MG TAB PEG/G-TUBE SCH (20:35)
[2020-04-26] MEDS: PARoxetine 10 MG TAB PEG/G-TUBE SCH (20:35)
[2020-04-27 00:43] LABS: Glucose,Whole Blood 99 mg/dL (75-99)
[2020-04-27] MEDS: AMPICILLIN-SULBACTAM 3 GM in SODIUM CHLORIDE 0.9% 100 ML IVPB SCH ×3 (00:43→15:22)
[2020-04-27 06:44] LABS: Glucose,Whole Blood 100 mg/dL (75-99)
[2020-04-27] MEDS: ALPRAZolam 0.5 MG TAB PEG/G-TUBE SCH ×2 (08:33→21:25)
[2020-04-27] MEDS: ASPIRIN 81 MG PEG/G-TUBE SCH (08:33)
[2020-04-27 09:09] LABS: Basophils # (A) 0 X 10*3/uL (0.00-0.10); Basophils % (A) 0 %; Eosinophils # (A) 0.08 X 10*3/uL (0.04-0.35); Eosinophils % (A) 4.8 %; HGB 7.9 g/dL (13.0-17.0); Lymphocytes # (A) 0.11 X 10*3/uL (0.90-5.00); Lymphocytes % (A) 6.5 %; MCH 29.8 pg (27.0-32.0); MCHC 31.6 g/dL (32.0-37.0); MCV 94.3 fL (80.0-97.0); Mean Platelet Volume 10.2 fL (9.5-12.2); Monocytes # (A) 0.14 X 10*3/uL (0.20-1.00); Monocytes % (A) 8.3 %; Neutrophils # (A) 1.34 X 10*3/uL (1.80-7.70); Neutrophils % (A) 79.8 %; Platelet Count 137 X 10*3/uL (140-440); RBC 2.65 X 10*6/uL (4.40-5.60); RDW 18.1 % (11.5-14.5); WBC 1.68 X 10*3/uL (4.50-10.00)
--- NOTE | 2020-04-27 10:09 | P.CNNES ---
History of Present Illness Consult date: 04/27/20 Requesting physician: Raphael Kaufman Reason for Consult: altered mental status History of Present Illness: This is a 65-year-old gentleman with history of right oropharyngeal mass with invasive poorly differentiated squamous cell carcinoma seen on the pharyngeal biopsy status post chemo therapy and focal radiation, metastatic disease to the liver and back (L-spine), tight esophageal stricture that had a PEG tube placed 2 years ago that was malfunctioning at as a result he had a new PEG tube on 04/15/2020, ex-tobacco user [id number] smoker quit 2017 who presented to [facility] for emergency department on 04/23/2020 for nausea vomiting and abdominal pain. Neurology is consulted for altered mental status. Patient last radiation therapy was on 04/22/2020. Upon seeing the patient he denies any further confusion episodes. Patient continues to follow-up with Dr. Barron for his oncology management Workup in the hospital consisted of: Patient T-max in the hospital was on 04/24/2020 and it was 100.3 Fahrenheit, blood pressure around that time was 98/55, heart rate 114, respiratory of 18, pulse ox of 95 at room air. Other than that the patient has been afebrile and after that his temperature has resolved. CT soft tissue neck is reported as some prominence in the soft tissue of the oropharyngeal with prominence of the tonsillar pilar's and loss of the right Vallecula. No definite of mass seen at the in has been no significant interval change since the prior study. There is no new lesion. There is no abnormal akila or abscess. White blood cell on presentation is 1.5 and the last one is 1.68. Platelet is 153 and on initial presentation last one is 137. Hemoglobin is 10.1 and the last one is 7.9. POC glucose that was done last was the 100 but it's been ranging between 90s to 100 and TENS. The sodium has been 139 which is normal. BUN/creatinine has been normal. The magnesium is 1.5 as normal. AST is 36 was just minimally elevated but not that significant in the ALTs 22 which is normal. During this admission infection disease is on board and the the recommended the patient to continue oral Augmentin because of the patient low-grade fever or leukopenia with a history of oropharyngeal cancer metastasis GI is consulted for the patient's the abdominal pain nausea vomiting as well as the PEG tube issues I personally saw the patient on 02/17/2020 at the our facility for cervical pain A vision and headache I felt that intermittent blurry vision over the left eye with diplopia bilateral frontal headache which resolved unsure of the exact etiology possibly was a TIA. Patient had MRI the brain as well as orbit and was reported as scattered chronic appearing deep white matter changes with age-related atrophy. Normal-appearing orbit. No suspicious changes assessment metastatic disease at. He had a TSH was 2.53. And I recommended for the patient to continue aspirin and Lipitor 10 mg. He had an EEG on 02/18/2020 and it shows background slowing suggestive of mild encephalopathy of unspecified etiology. There are no focal slowing, multiple discharges or seizure on the EEG. Review of Systems Review of system: The 12 point system was reviewed and apparent positive and negative per HPI. Past Medical History Past Medical History: Cancer, Osteoarthritis (OA) Additional Past Medical History / Comment(s): Esophageal cancer with trach, PEG tube x2 years History of Any Multi-Drug Resistant Organisms: None Reported Past Surgical History: Bowel Resection Additional Past Surgical History / Comment(s): Tracheostomy, and PEG tube, colostomy reversed December (2018) Past Anesthesia/Blood Transfusion Reactions: No Reported Reaction Past Psychological History: Anxiety, Depression Smoking Status: Former smoker Past Alcohol Use History: None Reported Past Drug Use History: None Reported - Past Family History Father Family Medical History: Cancer Additional Family Medical History / Comment(s): prostate cancer that spread to the brain Mother Family Medical History: Cancer Additional Family Medical History / Comment(s): ovarian cancer Sister(s) Family Medical History: Cancer Additional Family Medical History / Comment(s): breast cancer Medications and Allergies Home Medications Medication Instructions Recorded Confirmed Type PARoxetine HCL [Paxil] 10 mg PEG/G-TUBE HS 08/28/19 04/23/20 History Nivolumab [Opdivo] 100 mg IV QMONTHLY 10/27/19 04/23/20 History ALPRAZolam [Xanax] 0.5 mg PEG/G-TUBE BID 02/16/20 04/23/20 History Aspirin 81 mg PEG/G-TUBE DAILY 03/02/20 04/23/20 History Atorvastatin [Lipitor] 10 mg PEG/G-TUBE HS 03/02/20 04/23/20 History HYDROcodone/APAP 10-325MG [[place] 10 mg PO Q6HR PRN 04/15/20 04/23/20 History 10-325] Allergies Allergy/AdvReac Type Severity Reaction Status Date / Time adhesive tape Allergy Rash/Hives Verified 04/23/20 10:14 latex Allergy Rash/Hives Verified 04/23/20 10:14 Physical Examination - Vital Signs Vital Signs: Vital Signs Temp Pulse Resp BP Pulse Ox 04/27/20 05:00 98.2 F 79 18 137/69 97 04/26/20 20:09 97.9 F 78 18 139/78 97 04/26/20 11:28 98.2 F 83 18 139/82 99 Intake and Output 04/26/20 04/27/20 04/27/20 22:59 06:59 14:59 Intake Total 480 Balance 480 Intake: Tube Feeding 480 Other: Voiding Method Urinal # Voids 0 3 # Bowel Movements 0 Weight 72.3 kg GENERAL: The patient is lying in bed and is not in acute distress. CHEST: The heart rate is regular rate rhythm. No murmurs to auscultation. LUNG: Clear to auscultation bilaterally no wheezing noted throughout. Not labored breathing. ABDOMEN/GI: Bowel sounds present in all 4 quadrants. No tenderness to palpation throughout. +ve PEG tube. NEUROLOGICAL: Higher mental function: The patient is awake, alert, oriented to self, place and time. Patient is following commands. No aphasia and no neglect. Cranial nerves: The pupils are round, equal and reactive to light and accommodation. Visual alegria are full to confrontation throughout. Extraocular movement is intact no nystagmus is noted. Facial sensation is normal to touch throughout. The facial strength is normal throughout. Hearing is normal bilaterally to hand rub. Tongue is midline and moved [id number] without any difficulty. Mild dysarthria is noted. Shoulder shrug is normal bilaterally. Motor: Gait is deferred. The strength is 5 over 5 throughout. Normal tone and bulk. Cerebellum: Normal finger to nose bilaterally. Sensation: Sensation is normal to touch throughout. Reflexes (right/left): 2+ throughout. Plantars are downgoing bilaterally. Results Urinalysis is negative for urinary tract infection. Le virus PCR was not detected - Laboratory Findings CBC and BMP: 04/27/20 04:40 04/26/20 04:59 Abnormal Lab Findings: Abnormal Labs 04/23/20 04/23/20 04/23/20 09:33 09:33 09:34 WBC 1.5 L RBC 3.21 L Hgb 10.1 L Hct 29.8 L MCHC RDW 18.0 H Plt Count Neutrophils # Lymphocytes # 0.1 L Monocytes # Sodium 136 L Potassium Carbon Dioxide Creatinine 0.51 L BUN/Creatinine Ratio Glucose 116 H POC Glucose (mg/dL) Calcium Total Bilirubin 1.4 H AST C-Reactive Protein Total Protein Albumin Albumin/Globulin Ratio Procalcitonin Urine Ketones 1+ H Amorphous Sediment Few H Urine Mucus Rare H 04/24/20 04/24/20 04/25/20 07:24 07:24 05:14 WBC 3.7 L 2.15 L RBC 2.79 L 2.77 L Hgb 8.8 L 8.2 L Hct 25.7 L 26.4 L MCHC 31.1 L RDW 17.9 H 18.0 H Plt Count 135 L Neutrophils # Lymphocytes # 0.1 L 0.06 L Monocytes # 0.11 L Sodium Potassium 3.4 L Carbon Dioxide Creatinine 0.64 L BUN/Creatinine Ratio Glucose 103 H POC Glucose (mg/dL) Calcium Total Bilirubin AST C-Reactive Protein Total Protein 5.6 L Albumin 2.8 L Albumin/Globulin Ratio Procalcitonin Urine Ketones Amorphous Sediment Urine Mucus 04/25/20 04/25/20 04/26/20 05:14 05:14 00:25 WBC RBC Hgb Hct MCHC RDW Plt Count Neutrophils # Lymphocytes # Monocytes # Sodium Potassium 3.0 L Carbon Dioxide Creatinine BUN/Creatinine Ratio 23.33 H Glucose POC Glucose (mg/dL) 112 H Calcium 8.2 L Total Bilirubin AST C-Reactive Protein 8.7 H Total Protein 5.5 L Albumin 3.20 L Albumin/Globulin Ratio 1.39 L Procalcitonin 0.34 H Urine Ketones Amorphous Sediment Urine Mucus 04/26/20 04/26/20 04/26/20 04:59 04:59 17:01 WBC 2.14 L RBC 2.89 L Hgb 8.7 L Hct 27.7 L MCHC 31.4 L RDW 18.1 H Plt Count Neutrophils # Lymphocytes # 0.09 L Monocytes # 0.13 L Sodium Potassium 3.1 L Carbon Dioxide 21.5 L Creatinine BUN/Creatinine Ratio Glucose POC Glucose (mg/dL) 107 H Calcium 8.5 L Total Bilirubin AST 36 H C-Reactive Protein Total Protein 5.8 L Albumin 3.40 L Albumin/Globulin Ratio 1.42 L Procalcitonin Urine Ketones Amorphous Sediment Urine Mucus 04/27/20 04/27/20 04:40 06:43 WBC 1.68 L RBC 2.65 L Hgb 7.9 L Hct 25.0 L MCHC 31.6 L RDW 18.1 H Plt Count 137 L Neutrophils # 1.34 L Lymphocytes # 0.11 L Monocytes # 0.14 L Sodium Potassium Carbon Dioxide Creatinine BUN/Creatinine Ratio Glucose POC Glucose (mg/dL) 100 H Calcium Total Bilirubin AST C-Reactive Protein Total Protein Albumin Albumin/Globulin Ratio Procalcitonin Urine Ketones Amorphous Sediment Urine Mucus Assessment and Plan Assessment: Altered mental status seems septic encephalopathy from pancytopenia/neutropenia with an episode of fever and history of oropharyngeal cancer with metastasis--resolved History of right oropharyngeal mass within invasive poorly differentiate squamous cell carcinoma on the pharyngeal biopsy status post chemo or therapy and focal radiation Metastatic disease or liver and back (lumbar region L5 per PET CT on 03/2020) Tight esophageal stricture Dysphagia due to hx of oropharygneal mass and tight esophageal stricture s/p PEG tube on 04/15/20 Mild dysarthria Cervical spondylosis X tobacco use ([id number] smoker quit 2017) Plan: There is no further neurological workup needed this time. Infection disease is on board Gastroenterology team is on board. There is no further workup needed at this time. Neurology was on-off. Please reconsult if needed. Kana Marte M.D. Neuro-hospitalist Time with Patient: Greater than 30
--- NOTE | 2020-04-27 10:19 | P.PN ---
Subjective Progress Note Date: 04/26/20 Principal diagnosis: abdominal/back pain Since first requiring hospital admission the patient reports he is doing much better. He states his thoracic back pain is now almost completely resolved - he has not required pain medication today (04/26) per nursing. His abdomen is feeli ng better as well and he has resumed tube feeds. Improved WBC. Objective - Vital Signs Vital signs: Vital Signs Temp 98.2 F 04/27/20 05:00 Pulse 79 04/27/20 05:00 Resp 18 04/27/20 05:00 BP 137/69 04/27/20 05:00 Pulse Ox 97 04/27/20 05:00 Intake & Output 04/26/20 04/27/20 04/27/20 18:59 06:59 18:59 Intake Total 480 Balance 480 Weight 72.3 kg Intake: Tube Feeding 480 Other: Voiding Method Urinal Urinal # Voids 3 # Bowel Movements 0 - Constitutional General appearance: Present: no acute distress - EENT Eyes: Present: EOMI, PERRLA - Respiratory Respiratory: bilateral: CTA - Cardiovascular Rhythm: regular - Gastrointestinal General gastrointestinal: Absent: distended, tenderness - Integumentary Integumentary: Present: pale - Neurologic Neurologic: Present: CNII-XII intact - Psychiatric Psychiatric: Present: A&O x's 3, appropriate affect - Labs CBC & Chem 7: 04/27/20 04:40 04/26/20 04:59 Labs: Abnormal Lab Results - Last 24 Hours (Table) 04/26/20 04/26/20 04/27/20 Range/Units 04:59 17:01 04:40 WBC 1.68 L (4.50-10.00) X 10*3/uL RBC 2.65 L (4.40-5.60) X 10*6/uL Hgb 7.9 L (13.0-17.0) g/dL Hct 25.0 L (39.6-50.0) % MCHC 31.6 L (32.0-37.0) g/dL RDW 18.1 H (11.5-14.5) % Plt Count 137 L (140-440) X 10*3/uL Neutrophils # 1.34 L (1.80-7.70) X 10*3/uL Lymphocytes # 0.09 L 0.11 L (0.90-5.00) X 10*3/uL Monocytes # 0.13 L 0.14 L (0.20-1.00) X 10*3/uL POC Glucose (mg/dL) 107 H (75-99) mg/dL 04/27/20 Range/Units 06:43 WBC (4.50-10.00) X 10*3/uL RBC (4.40-5.60) X 10*6/uL Hgb (13.0-17.0) g/dL Hct (39.6-50.0) % MCHC (32.0-37.0) g/dL RDW (11.5-14.5) % Plt Count (140-440) X 10*3/uL Neutrophils # (1.80-7.70) X 10*3/uL Lymphocytes # (0.90-5.00) X 10*3/uL Monocytes # (0.20-1.00) X 10*3/uL POC Glucose (mg/dL) 100 H (75-99) mg/dL Microbiology - Last 24 Hours (Table) 04/23/20 22:11 Blood Culture - Preliminary Blood No Growth after 72 hours 04/23/20 21:55 Blood Culture - Preliminary Blood No Growth after 72 hours Assessment and Plan Assessment: Jonathan Dotson is a 65-year-old male with an extensive squamous cell carcinoma of the head and neck. He opted not to undergo therapy and instead enroll on hospice. Secondary to worsening pain and interest in improved quality of life he d/cd hospice. PET CT identified progression of disease. Juwan started induction chemotherapy with a dramatic tumor response. He subsequently received concurrent chemoradiation completed on 07/26/18 with appropriate tolerance. PET/CT unfort unately noted FDG avidity in the transverse process of T9 and the right hip. CT guided biopsy revealed squamous cell carcinoma from the T9 site. He finished a palliative course of RT on 04/11/19. As he had no elsewhere progression he underwent a course of SBRT to a persistently avid/symptomatic site in the right hip finishing on 09/08/2019. He more recently finished a course of SBRT to the T-9 area as this had progressed and completed 2/5 liver SBRT treatments prior to this hospitalization. He was admitted with increased abdominal pain. Plan: 1. Abdominal pain: Improved; tolerating tube feeds, no discomfort at PEG site. Counts have improved. Possible related to RT (although minimal bowel in field). Therefore will wait until to resume RT and will treat every other day to attempt to improve tolerance. 2. Thoracic spine pain: Patient finished radiotherapy to this lesion 2 weeks ago and is now reporting much improved pain today. 3. Head/Neck cancer: Patient on Keytruda - SBRT to oligoprogression in liver currently under way. Time with Patient: Less than 30
[2020-04-27 10:43] LABS: African American GFR (CKD) 122.3 (60.0-200.0); Albumin 3.2 g/dL (3.80-4.90); Albumin/Globulin Ratio 1.52 (1.60-3.17); Anion Gap 8.8 mmol/L (4.00-12.00); BUN/Creat Ratio 18.33 Ratio (12.00-20.00); Calcium 7.8 mg/dL (8.7-10.3); Carbon Dioxide 22.2 mmol/L (21.6-31.8); Globulin 2.1 g/dL (1.6-3.3); Non-African American GFR(CKD) 105.5 (60.0-200.0); Potassium 2.9 mmol/L (3.5-5.5); Total Bilirubin 0.6 mg/dL (0.2-1.2); Total Protein 5.3 g/dL (6.2-8.2)
--- NOTE | 2020-04-27 11:34 | MR ---
EXAMINATION TYPE: MR brain wo/w con DATE OF EXAM: 04/27/2020 COMPARISON: HISTORY: confusion, possible Brain mets, Hx of CA, Oropharyngeal mass CONTRAST: Performed utilizing 7 mL intravenous Gadavist gadolinium contrast. TECHNIQUE: Multiplanar, multiecho imaging on a 3.0 Larisa magnet is performed through the brain. Stud y is performed within 24 hours of arrival to the hospital. The craniovertebral junction is normal. The pituitary is normal. Optic hasn't appears normal. Diffusion-weighted imaging is performed. No abnormal hyperintensity is present to suggest an acute i ntracranial infarct or acute ischemic change. There are scattered subcortical white matter changes in the left frontal lobe measuring 0.5 cm , seri es 501 image 23. Right steele radiata region, series 501 image 21. Subcortical white matter of the pa rietal lobes. Series 501 image 19. And in the subcortical left frontal lobe white matter more inferio rly measuring 0.4 cm. Series 501 image 18. Ventricles and sulci are appropriate for the patient age. No abnormal enhancement is evident. IMPRESSIONS: 1. Scattered white matter changes are nonspecific but can be related to microvascular ischemic change among other etiologies. 2. No suspicious changes to suggest metastasis are identified.
[2020-04-27] MEDS ORDERED: Potassium Replacement Protocol 1 EACH MISC MISCELLANE PRN (11:42)
[2020-04-27 11:48] LABS: Glucose,Whole Blood 78 mg/dL (75-99)
[2020-04-27] MEDS: POTASSIUM BICARBONATE/CIT AC 20 MEQ TABLET.EFF NG-TUBE SCH ×3 (12:10→15:24)
[2020-04-27 13:35] VITALS: BMI 25.7
[2020-04-27] MEDS: SODIUM CHLORIDE 0.9% 1,000 ML IV SCH ×2 (13:50→21:34)
--- NOTE | 2020-04-27 15:18 | P.PN ---
Subjective Progress Note Date: 04/27/20 Principal diagnosis: Nausea and vomiting, pain at PEG tube site This is a pleasant 65-year-old white male patient who was admitted to the hospital with abdominal pain and pain around the PEG tube site that was recently placed a week ago. CT of the abdomen showed proper position of the PEG tube. The patient was started on radiation therapy for hepatic lesions for metastatic head and neck cancer. Patient is seen and examined sitting up at the bedside. He states his nausea and vomiting has improved significantly. He is tolerating his tube feeds. His rate is at 60 mL per hour. He is denying any abdominal pain, nausea, or vomiting. Objective - Vital Signs Vital signs: Vital Signs Temp 98.0 F 04/27/20 11:34 Pulse 80 04/27/20 11:34 Resp 18 04/27/20 11:34 BP 136/75 04/27/20 11:34 Pulse Ox 96 04/27/20 11:34 Intake & Output 04/26/20 04/27/20 04/27/20 18:59 06:59 18:59 Intake Total 480 Balance 480 Weight 72.3 kg Intake: Tube Feeding 480 Other: Voiding Method Urinal Urinal # Voids 3 # Bowel Movements 0 - Exam General appearance: The patient is alert, oriented, appears in no acute distress. HET: Head is normocephalic and atraumatic. Conjunctiva pink. Sclera anicteric. Neck: Supple without lymphadenopathy. Abdomen: Soft, nontender, PEG tube intact without drainage, nondistended with bowel sounds. No guarding or rigidity. Extremities: Normal skin color and turgor. No pedal edema Skin: No rashes, no jaundice Neurological: No focal deficits. Alert and oriented 3. - Labs CBC & Chem 7: 04/27/20 04:40 04/27/20 04:40 Labs: Abnormal Lab Results - Last 24 Hours (Table) 04/26/20 04/27/20 04/27/20 Range/Units 17:01 04:40 04:40 WBC 1.68 L (4.50-10.00) X 10*3/uL RBC 2.65 L (4.40-5.60) X 10*6/uL Hgb 7.9 L (13.0-17.0) g/dL Hct 25.0 L (39.6-50.0) % MCHC 31.6 L (32.0-37.0) g/dL RDW 18.1 H (11.5-14.5) % Plt Count 137 L (140-440) X 10*3/uL Neutrophils # 1.34 L (1.80-7.70) X 10*3/uL Lymphocytes # 0.11 L (0.90-5.00) X 10*3/uL Monocytes # 0.14 L (0.20-1.00) X 10*3/uL Potassium 2.9 L (3.5-5.5) mmol/L POC Glucose (mg/dL) 107 H (75-99) mg/dL Calcium 7.8 L (8.7-10.3) mg/dL Total Protein 5.3 L (6.2-8.2) g/dL Albumin 3.20 L (3.80-4.90) g/dL Albumin/Globulin Ratio 1.52 L (1.60-3.17) g/dL 04/27/20 Range/Units 06:43 WBC (4.50-10.00) X 10*3/uL RBC (4.40-5.60) X 10*6/uL Hgb (13.0-17.0) g/dL Hct (39.6-50.0) % MCHC (32.0-37.0) g/dL RDW (11.5-14.5) % Plt Count (140-440) X 10*3/uL Neutrophils # (1.80-7.70) X 10*3/uL Lymphocytes # (0.90-5.00) X 10*3/uL Monocytes # (0.20-1.00) X 10*3/uL Potassium (3.5-5.5) mmol/L POC Glucose (mg/dL) 100 H (75-99) mg/dL Calcium (8.7-10.3) mg/dL Total Protein (6.2-8.2) g/dL Albumin (3.80-4.90) g/dL Albumin/Globulin Ratio (1.60-3.17) g/dL Microbiology - Last 24 Hours (Table) 04/23/20 22:11 Blood Culture - Preliminary Blood No Growth after 72 hours 04/23/20 21:55 Blood Culture - Preliminary Blood No Growth after 72 hours Assessment and Plan (1) Abdominal pain Narrative/Plan: This is a patient who has been diagnosed with 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 He had a PEG tube replacement a week ago. He came in with complaints of abdominal pain at the PEG tube. 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 The pain has now resolved and he has increased his tube feedings and is currently at 50 mL per hour. 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 Current Visit: Yes Status: Acute Code(s): R11.2 - NAUSEA WITH VOMITING, UNSPECIFIED SNOMED Code(s): 72658407 Plan: 1. Supportive care 2. Maintain tube feeding at 60 mL per hour 3. Continue with antiemetics as needed 4. Consult case management for request of tube feeding pump for patient at home. Patient was doing manual feedings at home, and unable to tolerate well. Patient will likely tolerate tube feedings better with tube feedings per pump. Thank you for this consultation, We will continue to follow with you closely Dr. Lesia Medina I agree with the dictator's note, documented as a scribe by Lindsey Carvajal.
[2020-04-27 17:03] LABS: Glucose,Whole Blood 91 mg/dL (75-99)
--- NOTE | 2020-04-27 21:05 | P.PN ---
Subjective Progress Note Date: 04/27/20 Principal diagnosis: abdominal pain Patient is doing better Objective - Vital Signs Vital signs: Vital Signs Temp 98.6 F 04/27/20 20:19 Pulse 84 04/27/20 20:19 Resp 16 04/27/20 20:19 BP 120/61 04/27/20 20:19 Pulse Ox 97 04/27/20 20:19 Intake & Output 04/27/20 04/27/20 04/28/20 06:59 18:59 06:59 Intake Total 480 Balance 480 Weight 72.3 kg 72.3 kg Intake: Tube Feeding 480 Other: Voiding Method Urinal # Voids 3 # Bowel Movements 0 - Exam - Exam - Constitutional General appearance: Present: average body habitus, cooperative, no acute d istress - EENT EENT Comment(s): the thrush on his tongue is peeling off, the tongue underneath is red and irritated but no open lesion Eyes: Present: anicteric sclerae ENT: Present: thrush - Neck Details: less fullness, redness is gone, not as tender, skin feels normal temp - Respiratory Respiratory: bilateral: CTA - Cardiovascular Rhythm: regular Heart sounds: normal: S1, S2 Abnormal Heart Sounds: Absent: systolic murmur, diastolic murmur, rub, S3 Gallop, S4 Gallop, click, other - Gastrointestinal General gastrointestinal: Present: normal bowel sounds, soft - Integumentary Integumentary: Present: normal - Musculoskeletal Musculoskeletal: Present: generalized weakness, strength equal bilaterally - Psychiatric Psychiatric: Present: A&O x's 3, appropriate affect, intact judgment & insight - Labs CBC & Chem 7: 04/27/20 04:40 04/27/20 04:40 Labs: Abnormal Lab Results - Last 24 Hours (Table) 04/27/20 04/27/20 04/27/20 Range/Units 04:40 04:40 06:43 WBC 1.68 L (4.50-10.00) X 10*3/uL RBC 2.65 L (4.40-5.60) X 10*6/uL Hgb 7.9 L (13.0-17.0) g/dL Hct 25.0 L (39.6-50.0) % MCHC 31.6 L (32.0-37.0) g/dL RDW 18.1 H (11.5-14.5) % Plt Count 137 L (140-440) X 10*3/uL Neutrophils # 1.34 L (1.80-7.70) X 10*3/uL Lymphocytes # 0.11 L (0.90-5.00) X 10*3/uL Monocytes # 0.14 L (0.20-1.00) X 10*3/uL Potassium 2.9 L (3.5-5.5) mmol/L POC Glucose (mg/dL) 100 H (75-99) mg/dL Calcium 7.8 L (8.7-10.3) mg/dL Total Protein 5.3 L (6.2-8.2) g/dL Albumin 3.20 L (3.80-4.90) g/dL Albumin/Globulin Ratio 1.52 L (1.60-3.17) g/dL Microbiology - Last 24 Hours (Table) 04/23/20 22:11 Blood Culture - Preliminary Blood No Growth after 72 hours 04/23/20 21:55 Blood Culture - Preliminary Blood No Growth after 72 hours Assessment and Plan Plan: Assessment and Plan: Concern of Mental status changes: - MRI of Brain ordered per primary team - No evidence of metastatic disease Nausea/Vomiting and Abdominal Pain: - Unknown Etiology - Stable improving - Recently placed PEG tube, which is working and he is tolerating - gen surgery following Pancytopenia/Neutropenia - Subjective fevers and recent hospitalization for fevers, growth factor has been started - Daily CBC with Differential - Supportive transfusions if Hemoglobin less than 7, platelet count less than 10K Squamous cell carcinoma - Pt has been and continues on Opdivo since early last year, last treatment dose was 04/22/20 #14 - Recent progression to L spine - Status POst palliaitive radiation - Recent progression in liver and SBRT last week with Dr. Perera. - Follow-up with dr. Barron after discharge regarding treatment plan continuation or next line. . Review of CT liver and L4 without change from prior imaging. DISPO: Hopefully within next 24 hours Physician Attest: I have completed the full history and physical and agree with above dictation, dictated as a scribe
[2020-04-27] MEDS: AMOXIC-POT CLAV 875-125MG 1 EACH TAB PO SCH (21:25)
[2020-04-27] MEDS: ATORVASTATIN 10 MG TAB PEG/G-TUBE SCH (21:25)
[2020-04-27] MEDS: PARoxetine 10 MG TAB PEG/G-TUBE SCH (21:25)
--- NOTE | 2020-04-27 21:59 | DS ---
DISCHARGE SUMMARY DISCHARGE MEDICINES: 1. Augmentin 875 one b.i.d. 2. Paxil 10 mg daily. 3. Opdivo 100 mg IV monthly. 4. Xanax 0.5 mg PEG tube b.i.d. 5. Aspirin 81 mg daily. 6. Lipitor 10 mg per PEG tube daily. 7. Murphys 10/325 q.6 hours p.r.n. for pain. CONDITION: Stable. PROGNOSIS: Guarded. Ambulate as tolerated. Follow up in office in 3-4 days. HISTORY OF PRESENT ILLNESS: This is a white male who came in with fevers, dehydration, nausea, vomiting, abdominal pain. PEG tube was readjusted. Tube feedings were restarted. All cultures were negative for ruling out sepsis. He was started on Augmentin after IV antibiotics were given for Unasyn, which he improved with from an abdominal standpoint. Abdominal pain symptoms could have been due to radiation type fever, unsure, and all the cultures came back negative. Will continue with Augmentin for another week. Follow up in the office. MMODL / IJN: [id number] /
[2020-04-28] LABS: Glucose,Whole Blood 100 mg/dL (75-99)
--- NOTE | 2020-04-28 01:21 | PN ---
PROGRESS NOTE DATE OF SERVICE: 04/27/2020. REASON FOR FOLLOW UP: Fever, possible infection. INTERVAL HISTORY: The patient is currently afebrile. The patient has been breathing comfortably. Denies having any chest pain or shortness of breath or cough. No abdominal pain. No diarrhea. EXAMINATION: Blood pressure 120/64, pulse 84, temperature 99.6. She is 97% on room air. General description is an elderly male up in the bed in no distress. Respiratory system: Unlabored breathing, decreased breath sounds in the bases. No wheeze. Heart S1, S2. Regular rate and rhythm. ABDOMEN: Soft, no tenderness. Extremities: No edema of the feet. LABS: Hemoglobin 7.1. White count 1.68, creatinine 0.6. DIAGNOSTIC IMPRESSION AND PLAN: Patient with a low-grade fever and leukopenia in this patient who did have retropharyngeal metastatic with possible retropharyngeal infection. As the patient white count responded to the Unasyn, antibiotic has been switched over to Augmentin to continue while monitoring clinical course closely. Continue supportive care. MMODL / IJN: [id number] /
[2020-04-28 05:07] VITALS: BP 121/65; PULSE 88; RESP 18; TEMP 98.1
[2020-04-28 06:07] LABS: Glucose,Whole Blood 106 mg/dL (75-99)
[2020-04-28] MEDS: AMOXIC-POT CLAV 875-125MG 1 EACH TAB PO SCH (08:18)
[2020-04-28] MEDS: ASPIRIN 81 MG PEG/G-TUBE SCH (08:18)
[2020-04-28] MEDS: ALPRAZolam 0.5 MG TAB PEG/G-TUBE SCH (08:18)
== END 2020-04-28 12:40 | disposition home health service (06) | DRG 641 ==
LOC: EC 09:05 → 5NMEDONC 10:23
PROVIDERS: ADMIT Family Medicine; ATTEND Family Medicine
PROC: 3E0G76Z Introduction of Nutritional Substance into Upper GI, Via Natural or Artificial Opening (ICD-10-PCS; principal; 2020-04-24)
DX: E86.0 Dehydration (principal); D61.818 Other pancytopenia; C15.9 Malignant neoplasm of esophagus, unspecified; C78.7 Secondary malignant neoplasm of liver and intrahepatic bile duct; K52.0 Gastroenteritis and colitis due to radiation; C79.51 Secondary malignant neoplasm of bone; G93.40 Encephalopathy, unspecified; C10.9 Malignant neoplasm of oropharynx, unspecified; J98.2 Interstitial emphysema; K22.2 Esophageal obstruction; M19.90 Unspecified osteoarthritis, unspecified site; M47.812 Spondylosis without myelopathy or radiculopathy, cervical region; Y84.2 Radiological procedure and radiotherapy as the cause of abnormal reaction of the patient, or of later complication, without mention of misadventure at the time of the procedure; Z79.82 Long term (current) use of aspirin; Z79.899 Other long term (current) drug therapy; Z80.3 Family history of malignant neoplasm of breast; Z80.41 Family history of malignant neoplasm of ovary; Z80.42 Family history of malignant neoplasm of prostate; Z87.891 Personal history of nicotine dependence; Z92.21 Personal history of antineoplastic chemotherapy; Z92.3 Personal history of irradiation; R50.81 Fever presenting with conditions classified elsewhere; Z20.822 Contact with and (suspected) exposure to COVID-19; Z91.040 Latex allergy status; Z90.49 Acquired absence of other specified parts of digestive tract; F32.9 Major depressive disorder, single episode, unspecified; F41.9 Anxiety disorder, unspecified; R13.10 Dysphagia, unspecified
CPT/HCPCS: 36415; 70491; 70553; 74177; 80053; 81001; 83735; 84132; 84145; 85025; 86140; 87040; 87635; 96361; 96374; 96375; 99285

== ENCOUNTER 2020-05-20 04:55 | Inpatient (IN) | payer MEDICARE, OTHER ==
[2020-05-20] MEDS ORDERED: MORPHINE SULFATE 4 MG/ML SYRINGE IV STA (05:24)
[2020-05-20] MEDS ORDERED: SODIUM CHLORIDE 0.9% 1,000 ML IV STA (05:24)
[2020-05-20] MEDS ORDERED: ONDANSETRON 4 MG/2 ML VIAL IVP STA (05:24)
[2020-05-20 06:26] LABS: ALT 22 U/L (4-49); African American GFR (CKD) >90 (>60 ml/min/1.73 sqM); Albumin 4.1 g/dL (3.5-5.0); Amylase 57 U/L (30-110); Anion Gap 11 mmol/L; Blood Urea Nitrogen 17 mg/dL (9-20); Calcium 9.2 mg/dL (8.4-10.2); Carbon Dioxide 24 mmol/L (22-30); Chloride 101 mmol/L (98-107); Glucose 117 mg/dL (74-99); Lipase 117 U/L (23-300); Non-African American GFR(CKD) >90 (>60 ml/min/1.73 sqM); Sodium 136 mmol/L (137-145); Total Bilirubin 1.2 mg/dL (0.2-1.3); Total Protein 7.7 g/dL (6.3-8.2)
--- NOTE | 2020-05-20 06:32 | XR ---
EXAM: XR Chest, 1 View CLINICAL HISTORY: ITS.REASON XR Reason: cough TECHNIQUE: Frontal view of the chest. COMPARISON: 03/05/20 FINDINGS: Lungs: Mild increased interstitial markings which may partly reflect chronic change. Mild bibasilar atelectasis. Asymmetric increased density in the right lung base which may reflect focal infiltrate. Pleural space: Biapical pleural thickening, unchanged and likely chronic. No pneumothorax. Heart: Unremarkable. No cardiomegaly. Mediastinum: Unremarkable. Bones/joints: Degenerative changes in the spine. Vasculature: Mildly tortuous thoracic aorta, unchanged. IMPRESSION: 1. Bibasilar atelectasis. 2. Suspect focal infiltrate in the right lung base.
[2020-05-20 06:33] LABS: Anisocytosis Slight; Basophils % (A) 0 %; Eosinophils # (A) 0.2 k/uL (0-0.7); Eosinophils % (A) 4 %; HCT 33.5 % (39.0-53.0); HGB 11.1 gm/dL (13.0-17.5); Lymphocytes # (A) 0.1 k/uL (1.0-4.8); Lymphocytes % (A) 3 %; MCH 31.2 pg (25.0-35.0); MCHC 33.3 g/dL (31.0-37.0); MCV 93.7 fL (80.0-100.0); Macrocytosis Slight; Mean Platelet Volume 8.4; Monocytes # (A) 0.4 k/uL (0-1.0); Monocytes % (A) 9 %; Neutrophils # (A) 3.5 k/uL (1.3-7.7); Neutrophils % (A) 83 %; Platelet Count 173 k/uL (150-450); RBC 3.58 m/uL (4.30-5.90); WBC 4.3 k/uL (3.8-10.6)
[2020-05-20 06:39] LABS: AST 42 U/L (17-59); Alkaline Phosphatase 132 U/L (38-126)
[2020-05-20] MEDS ORDERED: MORPHINE SULFATE 4 MG/ML SYRINGE IVP STA (07:17)
--- NOTE | 2020-05-20 07:18 | ED ---
Abdominal Pain HPI - General Chief Complaint: Abdominal Pain Stated Complaint: Abd Pain Time Seen by Provider: 05/20/20 04:59 Source: patient, family, RN notes reviewed, old records reviewed Mode of arrival: wheelchair Limitations: no limitations - History of Present Illness Initial Comments: This is a 65-year-old male DF for evaluation patient has known significant cancer history coming in for epigastric in his back. Positive nausea type symptoms. No fevers. Patient has PEG tube for 2 years and has severe pain with PEG tube feedings currently. Otherwise no significant complaints MD Complaint: abdominal pain, other (Epigastric pain) -: hour(s), days(s) Location: epigastric Radiation: epigastric Migration to: epigastric Severity: moderate Severity scale (1-10): 7 Quality: stabbing, sharp Consistency: constant Improves With: nothing Worsens With: eating Context: recent surgery/procedure (history of) Associated Symptoms: nausea, vomiting Treatments Prior to Arrival: other (none) - Related Data Home Medications Medication Instructions Recorded Confirmed PARoxetine HCL [Paxil] 10 mg PEG/G-TUBE HS 08/28/19 05/28/20 Nivolumab [Opdivo] 100 mg IV QMONTHLY 10/27/19 05/28/20 ALPRAZolam [Xanax] 0.5 mg PEG/G-TUBE BID 02/16/20 05/28/20 Aspirin 81 mg PEG/G-TUBE DAILY 03/02/20 05/28/20 Atorvastatin [Lipitor] 10 mg PEG/G-TUBE HS 03/02/20 05/28/20 Esomeprazole Magnesium 20 mg PEG/G-TUBE DAILY 05/20/20 05/28/20 Fluconazole [Diflucan] 150 mg PEG/G-TUBE Q72H 05/20/20 05/28/20 Nystatin 100,000 Unit/ml Susp 500,000 units PO QID 05/20/20 05/28/20 [Mycostatin Oral Susp] Doxycycline [Vibramycin] 100 mg PEG/G-TUBE BID 05/28/20 05/28/20 HYDROcodone/APAP 5-325MG [[place] 1 tab PEG/G-TUBE Q6HR PRN 05/28/20 05/28/20 5-325] atenoloL [Tenormin] 12.5 mg PEG/G-TUBE BID 05/28/20 05/28/20 Allergies Allergy/AdvReac Type Severity Reaction Status Date / Time adhesive tape Allergy Rash/Hives Verified 05/28/20 21:25 latex Allergy Rash/Hives Verified 05/28/20 21:25 Review of Systems ROS Statement: Those systems with pertinent positive or pertinent negative responses have been documented in the HPI. ROS Other: All systems not noted in ROS Statement are negative. Past Medical History Past Medical History: Cancer, Osteoarthritis (OA) Additional Past Medical History / Comment(s): Esophageal cancer with trach, PEG tube x2 years History of Any Multi-Drug Resistant Organisms: None Reported Past Surgical History: Bowel Resection Additional Past Surgical History / Comment(s): Tracheostomy, and PEG tube, colostomy reversed December (2018) Past Anesthesia/Blood Transfusion Reactions: No Reported Reaction Past Psychological History: Anxiety, Depression Smoking Status: Former smoker Past Alcohol Use History: None Reported Past Drug Use History: None Reported - Past Family History Father Family Medical History: Cancer Additional Family Medical History / Comment(s): prostate cancer that spread to the brain Mother Family Medical History: Cancer Additional Family Medical History / Comment(s): ovarian cancer Sister(s) Family Medical History: Cancer Additional Family Medical History / Comment(s): breast cancer General Exam - General Exam Comments Initial Comments: Positive PEG tube Limitations: no limitations General appearance: alert, in no apparent distress Head exam: Present: atraumatic, normocephalic, normal inspection Eye exam: Present: normal appearance, PERRL, EOMI. Absent: scleral icterus, conjunctival injection, periorbital swelling ENT exam: Present: normal exam, mucous membranes moist Neck exam: Present: normal inspection. Absent: tenderness, meningismus, lymphadenopathy Respiratory exam: Present: normal lung sounds bilaterally. Absent: respiratory distress, wheezes, rales, rhonchi, stridor Cardiovascular Exam: Present: regular rate, normal rhythm, normal heart sounds. Absent: systolic murmur, diastolic murmur, rubs, gallop, clicks GI/Abdominal exam: Present: tenderness, guarding, normal bowel sounds. Absent: distended, rebound, rigid Extremities exam: Present: normal inspection, full ROM, normal capillary refill. Absent: tenderness, pedal edema, joint swelling, calf tenderness Back exam: Present: normal inspection Neurological exam: Present: alert, oriented X3, CN II-XII intact Psychiatric exam: Present: normal affect, normal mood Skin exam: Present: warm, dry, intact, normal color. Absent: rash Course Vital Signs 05/20/20 05/20/20 04:58 12:14 Temperature 97.4 F L Pulse Rate 79 95 Respiratory 18 17 Rate Blood Pressure 139/79 110/59 O2 Sat by Pulse 91 L 98 Oximetry - Reevaluation(s) Reevaluation #1: Medical record is reviewed Patient symptoms are improved here in the emergency department Patient informed of results and questions have been answered Patient will be admitted for further evaluation and treatment Medical Decision Making - Medical Decision Making 65 male DF for evaluation acute abdominal pain, abdominal pain radiating to his back. Cystitis will admit for surgical consult and persistent evaluation treatment significant pain. - Lab Data Result diagrams: 05/22/20 07:10 05/22/20 07:10 Lab Results 05/20/20 05/20/20 05/20/20 Range/Units 05:35 05:35 05:35 WBC 4.3 (3.8-10.6) k/uL RBC 3.58 L (4.30-5.90) m/uL Hgb 11.1 L (13.0-17.5) gm/dL Hct 33.5 L (39.0-53.0) % MCV 93.7 (80.0-100.0) fL MCH 31.2 (25.0-35.0) pg MCHC 33.3 (31.0-37.0) g/dL RDW 19.0 H (11.5-15.5) % Plt Count 173 (150-450) k/uL MPV 8.4 Neutrophils % 83 % Lymphocytes % 3 % Monocytes % 9 % Eosinophils % 4 % Basophils % 0 % Neutrophils # 3.5 (1.3-7.7) k/uL Lymphocytes # 0.1 L (1.0-4.8) k/uL Monocytes # 0.4 (0-1.0) k/uL Eosinophils # 0.2 (0-0.7) k/uL Basophils # 0.0 (0-0.2) k/uL Hypochromasia Anisocytosis Slight Macrocytosis Slight Sodium 136 L (137-145) mmol/L Potassium 4.0 (3.5-5.1) mmol/L Chloride 101 (98-107) mmol/L Carbon Dioxide 24 (22-30) mmol/L Anion Gap 11 mmol/L BUN 17 (9-20) mg/dL Creatinine 0.56 L (0.66-1.25) mg/dL Est GFR (CKD-EPI)AfAm >90 (>60 ml/min/1.73 sqM) Est GFR (CKD-EPI)NonAf >90 (>60 ml/min/1.73 sqM) BUN/Creatinine Ratio (12.00-20.00) Ratio Glucose 117 H (74-99) mg/dL Lactic Ac Sepsis Rflx Plasma Lactic Acid Sherman 2.9 H* (0.7-2.0) mmol/L Calcium 9.2 (8.4-10.2) mg/dL Total Bilirubin 1.2 (0.2-1.3) mg/dL AST 42 (17-59) U/L ALT 22 (4-49) U/L Alkaline Phosphatase 132 H (38-126) U/L Lactate Dehydrogenase (313-618) U/L C-Reactive Protein (<10.0) mg/L Total Protein 7.7 (6.3-8.2) g/dL Albumin 4.1 (3.5-5.0) g/dL Globulin (1.6-3.3) g/dL Albumin/Globulin Ratio (1.60-3.17) g/dL Amylase 57 (30-110) U/L Lipase 117 (23-300) U/L Coronavirus (PCR) (Not Detectd) 05/20/20 05/20/20 05/20/20 Range/Units 05:35 06:38 07:51 WBC (3.8-10.6) k/uL RBC (4.30-5.90) m/uL Hgb (13.0-17.5) gm/dL Hct (39.0-53.0) % MCV (80.0-100.0) fL MCH (25.0-35.0) pg MCHC (31.0-37.0) g/dL RDW (11.5-15.5) % Plt Count (150-450) k/uL MPV Neutrophils % % Lymphocytes % % Monocytes % % Eosinophils % % Basophils % % Neutrophils # (1.3-7.7) k/uL Lymphocytes # (1.0-4.8) k/uL Monocytes # (0-1.0) k/uL Eosinophils # (0-0.7) k/uL Basophils # (0-0.2) k/uL Hypochromasia Anisocytosis Macrocytosis Sodium (137-145) mmol/L Potassium (3.5-5.1) mmol/L Chloride (98-107) mmol/L Carbon Dioxide (22-30) mmol/L Anion Gap mmol/L BUN (9-20) mg/dL Creatinine (0.66-1.25) mg/dL Est GFR (CKD-EPI)AfAm (>60 ml/min/1.73 sqM) Est GFR (CKD-EPI)NonAf (>60 ml/min/1.73 sqM) BUN/Creatinine Ratio (12.00-20.00) Ratio Glucose (74-99) mg/dL Lactic Ac Sepsis Rflx Y Plasma Lactic Acid Sherman (0.7-2.0) mmol/L Calcium (8.4-10.2) mg/dL Total Bilirubin (0.2-1.3) mg/dL AST (17-59) U/L ALT (4-49) U/L Alkaline Phosphatase (38-126) U/L Lactate Dehydrogenase 642 H (313-618) U/L C-Reactive Protein 25.5 H (<10.0) mg/L Total Protein (6.3-8.2) g/dL Albumin (3.5-5.0) g/dL Globulin (1.6-3.3) g/dL Albumin/Globulin Ratio (1.60-3.17) g/dL Amylase (30-110) U/L Lipase (23-300) U/L Coronavirus (PCR) Not Detected (Not Detectd) 05/20/20 05/21/20 05/21/20 Range/Units 09:19 08:21 08:21 WBC 7.6 (3.8-10.6) k/uL RBC 2.98 L (4.30-5.90) m/uL Hgb 9.5 L D (13.0-17.5) gm/dL Hct 28.8 L (39.0-53.0) % MCV 96.7 (80.0-100.0) fL MCH 31.8 (25.0-35.0) pg MCHC 32.9 (31.0-37.0) g/dL RDW 19.2 H (11.5-15.5) % Plt Count 167 (150-450) k/uL MPV 8.1 Neutrophils % 89 % Lymphocytes % 1 % Monocytes % 8 % Eosinophils % 1 % Basophils % 0 % Neutrophils # 6.8 (1.3-7.7) k/uL Lymphocytes # 0.1 L (1.0-4.8) k/uL Monocytes # 0.6 (0-1.0) k/uL Eosinophils # 0.1 (0-0.7) k/uL Basophils # 0.0 (0-0.2) k/uL Hypochromasia Slight Anisocytosis Slight Macrocytosis Slight Sodium 138 (137-145) mmol/L Potassium 4.3 (3.5-5.1) mmol/L Chloride 105 (98-107) mmol/L Carbon Dioxide 23.6 (22-30) mmol/L Anion Gap 9.40 mmol/L BUN 22.0 (9-20) mg/dL Creatinine 0.8 (0.66-1.25) mg/dL Est GFR (CKD-EPI)AfAm 108.6 (>60 ml/min/1.73 sqM) Est GFR (CKD-EPI)NonAf 93.7 (>60 ml/min/1.73 sqM) BUN/Creatinine Ratio 27.50 H (12.00-20.00) Ratio Glucose 129 H (74-99) mg/dL Lactic Ac Sepsis Rflx Plasma Lactic Acid Sherman 1.9 (0.7-2.0) mmol/L Calcium 8.7 (8.4-10.2) mg/dL Total Bilirubin 1.6 H (0.2-1.3) mg/dL AST 66 H (17-59) U/L ALT 49 (4-49) U/L Alkaline Phosphatase 106 (38-126) U/L Lactate Dehydrogenase (313-618) U/L C-Reactive Protein (<10.0) mg/L Total Protein 6.2 (6.3-8.2) g/dL Albumin 3.80 (3.5-5.0) g/dL Globulin 2.4 (1.6-3.3) g/dL Albumin/Globulin Ratio 1.58 L (1.60-3.17) g/dL Amylase (30-110) U/L Lipase (23-300) U/L Coronavirus (PCR) (Not Detectd) - Radiology Data Radiology results: report reviewed (CT of the abdomen and pelvis is possible for acute cholecystitis), image reviewed Disposition Clinical Impression: Nausea & vomiting, Abdominal colic, Abdominal pain, Fever, unknown origin, Cholecystitis Disposition: ADMITTED IP TO THIS HOSP Condition: Stable Is patient prescribed a controlled substance at d/c from ED?: No
--- NOTE | 2020-05-20 07:23 | CT ---
EXAMINATION TYPE: CT abdomen pelvis w con DATE OF EXAM: 05/20/2020 COMPARISON: 04/23/2020 HISTORY: Abdominal pain CT DLP: 841.9 mGycm CONTRAST: CT scan of the abdomen and pelvis is performed without Oral Contrast and with IV Contrast, patient in jected with 100 ml mL of Isovue 300. FINDINGS: LUNG BASES-: No visible nodule. No infiltrate. LIVER/GB: No calcified gallstones. Mild gallbladder wall thickening without surrounding fluid or in flammatory change. Lesion dome of the liver is smaller in size and measures 1.5 cm versus 2.7 cm prev iously. Also smaller in size is a peripheral lesion within the right hepatic lobe currently measuring 6.6 mm versus 1.5 cm previously. Biliary tree is of normal caliber. PANCREAS: No inflammation. No distinct mass. SPLEEN: No splenic enlargement. No lesion seen. ADRENALS: No nodule. No thickening. KIDNEYS/BLADDER: No hydronephrosis. No nephrolithiasis. No distinct renal mass. Urinary bladder g rossly unremarkable. BOWEL: Normal bowel caliber. No inflammation. Gastrostomy tube is noted to be in place. Partial righ t hemicolectomy noted. GENITAL ORGANS: No gross abnormality. LYMPH NODES: No greater than 1cm abdominal or pelvic lymph nodes are appreciated. AORTA: No significant abnormality. OSSEOUS STRUCTURES: No significant abnormality is seen. OTHER: No significant additional abnormality is seen. IMPRESSION: 1. Mild gallbladder wall thickening without surrounding fluid or inflammatory change. 2. Lesion within the dome of the liver seen previously is currently smaller in size. Also smaller in size is a peripheral lesion within the right hepatic lobe currently measuring 6.6 mm versus 1.5 cm pr eviously.
[2020-05-20] MEDS ORDERED: IPRATROPIUM-ALBUTEROL 3 ML NEB INHALATION PRN (07:35)
[2020-05-20] MEDS ORDERED: PIPERACILLIN-TAZOBACTAM 3.375 GM in SODIUM CHLORIDE 0.9% 100 ML IVPB STA (07:35)
[2020-05-20] MEDS ORDERED: AZITHROMYCIN 500 MG in SODIUM CHLORIDE 0.9% 250 ML IVPB STA (07:35)
[2020-05-20] MEDS ORDERED: PNEUMONIA PROTOCOL UTILIZED 1 EACH MISC PO PRN (07:35)
[2020-05-20 08:16] LABS: C Reactive Protein 25.5 mg/L (<10.0)
--- NOTE | 2020-05-20 08:30 | US ---
EXAMINATION TYPE: US gallbladder DATE OF EXAM: 05/20/2020 COMPARISON: NONE CLINICAL HISTORY: pain. EXAM MEASUREMENTS: Liver Length: 15.8 cm Gallbladder Wall: 0.9 cm CBD: 0.4 cm Right Kidney: 10.7 x 4.6 x 5.0 cm Patient has midline tube, unable to scan midline. Extensive midline bowel gas. Pancreas: not seen Liver: limited views, unable to visualize lesions seen in CT Gallbladder: stones, there appears to be cholecystic fluid, thickened wall, comet tail artifact anter ior wall Evidence for sonographic Gayle's sign: no CBD: limited visualization Right Kidney: wnl IMPRESSION: 1. Cholelithiasis with gallbladder wall thickening and pericholecystic fluid. Correlate for underlyin g acute cholecystitis.
[2020-05-20] MEDS ORDERED: HYDROcodone/APAP 10-325MG 1 EACH TAB PO PRN (08:49)
[2020-05-20] MEDS ORDERED: NIVOLUMAB 100 MG/10 ML IV SCH (09:00)
[2020-05-20] MEDS: SODIUM CHLORIDE 0.9% 1,000 ML IV SCH ×2 (09:34→20:28)
[2020-05-20] MEDS: ALPRAZolam 1 MG TAB PEG/G-TUBE SCH ×2 (09:39→22:22)
[2020-05-20] MEDS: ASPIRIN 81 MG PEG/G-TUBE SCH (09:39)
[2020-05-20] MEDS: HYDROcodone/APAP 10-325MG 1 EACH TAB PO PRN (09:40)
[2020-05-20] MEDS ORDERED: ONDANSETRON 4 MG/2 ML VIAL IVP PRN (12:12)
--- NOTE | 2020-05-20 12:13 | P.GSCN ---
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 Patient has history of PEG tube placement due to an esophageal stricture and dysphagia. Patient also has past history of bowel resection with colostomy and colostomy reversal in 2019. Patient presents to the emergency room with complaints of right upper quadrant abdominal pain. Patient did have nausea and vomiting at home. Ultrasound of the gallbladder shows cholelithiasis with gallbladder wall thickening and pericholecystic fluid. He had elevated lactic acid level on admission. Surgical consult was placed for an acute cholecystitis. Patient remains on IV antibiotics and IV fluids. Patient seen and examined with Dr. meade PAST MEDICAL HISTORY: See list. PAST SURGICAL HISTORY: See list. MEDICATIONS: See list. ALLERGIES: See list. SOCIAL HISTORY: No illicit drug use. REVIEW OF SYSTEMS: CONSTITUTIONAL: Denies fever or chills. HEENT: Denies blurred vision, vision changes, or eye pain. Denies hemoptysis CARDIOVASCULAR: Denies chest pain or pressure. RESPIRATORY: No shortness of breath. GASTROINTESTINAL: See HPI for pertinent findings HEMATOLOGIC: Denies bleeding disorders. GENITOURINARY: Denies any blood in urine or increased urinary frequency. SKIN: Denies pruitis. Denies rash. PHYSICAL EXAM: VITAL SIGNS: Reviewed GENERAL: Well-developed in no acute distress. HEENT: No sclera icterus. Extraocular movements grossly intact. Moist buccal mucosa. Head is atraumatic, normocephalic. No nasal drainage. ABDOMEN: Soft. Nondistended. Right upper quadrant tenderness. Old mid abdomen incisional scar NEUROLOGIC: Alert and oriented. Cranial nerves II through XII grossly intact. LABORATORY DATA: IMAGING: Abdominal ultrasound shows cholelithiasis with gallbladder wall thickening and pericholecystic fluid. Correlate for underlying acute cholecystitis Computed tomography scan of the abdomen and pelvis shows mild gallbladder wall thickening with surrounding fluid or inflammatory change. Lesion within the dome of the liver seen previously is currently similar in size. Also smaller in size is a peripheral lesion within the right hepatic lobe currently measuring 6.6 mm versus 1.5 cm previously Chest x-ray bibasilar atelectasis. Suspect focal infiltrate in the right lung base ASSESSMENT: WBC 4.3 Hgb 11.1 platelets 173 sodium 136 potassium 4 BUN 17 creatinine 0.56 lactic acid 2.9 down to 1.9 AST and ALT normal alk phos 132 lactate dehydrogenase 642 C-reactive protein 25.5 Lipase normal Covid not detected PLAN: -Patient is tentatively scheduled for laparoscopic possible open cholecystectomy today, 05/20/[address] Meade -Keep patient nothing by mouth for now -Continue IV antibiotics -Continue IV fluids -Continue pain medication as needed -Continue antiemetics as needed Thank you for this consultation Physician Wrong Address Clerk note has been reviewed by physician. Signing provider agrees with the documented findings, assessment, and plan of care. Past Medical History Past Medical History: Cancer, GI Bleed, Hyperlipidemia, Osteoarthritis (OA) Additional Past Medical History / Comment(s): Pt recently admitted to [facility] on 04/23/20 with abdominal pain, nausea/vomiting/fevers and was tx with antibiotics. 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 Past Anesthesia/Blood Transfusion Reactions: No Reported Reaction Smoking Status: Former smoker - Past Family History Father Family Medical History: Cancer Additional Family Medical History / Comment(s): prostate cancer that spread to the brain Mother Family Medical History: Cancer Additional Family Medical History / Comment(s): ovarian cancer Sister(s) Family Medical History: Cancer Additional Family Medical History / Comment(s): breast cancer Medications and Allergies Home Medications Medication Instructions Recorded Confirmed Type PARoxetine HCL [Paxil] 10 mg PEG/G-TUBE HS 08/28/19 05/20/20 History Nivolumab [Opdivo] 100 mg IV QMONTHLY 10/27/19 05/20/20 History ALPRAZolam [Xanax] 0.5 mg PEG/G-TUBE BID 02/16/20 05/20/20 History Aspirin 81 mg PEG/G-TUBE DAILY 03/02/20 05/20/20 History Atorvastatin [Lipitor] 10 mg PEG/G-TUBE HS 03/02/20 05/20/20 History HYDROcodone/APAP 10-325MG [[place] 10 mg PEG/G-TUBE TID PRN 04/15/20 05/20/20 History 10-325] Esomeprazole Magnesium 20 mg PEG/G-TUBE DAILY 05/20/20 05/20/20 History Fluconazole [Diflucan] 150 mg PEG/G-TUBE Q72H 05/20/20 05/20/20 History Nystatin 100,000 Unit/ml Susp 500,000 units PO QID 05/20/20 05/20/20 History [Mycostatin Oral Susp] Allergies Allergy/AdvReac Type Severity Reaction Status Date / Time adhesive tape Allergy Rash/Hives Verified 05/20/20 10:21 latex Allergy Rash/Hives Verified 05/20/20 10:21 Surgical - Exam Vital Signs Temp Pulse Resp BP Pulse Ox 97.4 F L 79 18 139/79 91 L 05/20/20 04:58 05/20/20 04:58 05/20/20 04:58 05/20/20 04:58 05/20/20 04:58 Results - Labs 05/20/20 05:35 05/20/20 05:35 Abnormal Lab Results - Last 24 Hours (Table) 05/20/20 05/20/20 05/20/20 Range/Units 05:35 05:35 05:35 RBC 3.58 L (4.30-5.90) m/uL Hgb 11.1 L (13.0-17.5) gm/dL Hct 33.5 L (39.0-53.0) % RDW 19.0 H (11.5-15.5) % Lymphocytes # 0.1 L (1.0-4.8) k/uL Sodium 136 L (137-145) mmol/L Creatinine 0.56 L (0.66-1.25) mg/dL Glucose 117 H (74-99) mg/dL Plasma Lactic Acid Sherman 2.9 H* (0.7-2.0) mmol/L Alkaline Phosphatase 132 H (38-126) U/L Lactate Dehydrogenase (313-618) U/L C-Reactive Protein (<10.0) mg/L 05/20/20 Range/Units 05:35 RBC (4.30-5.90) m/uL Hgb (13.0-17.5) gm/dL Hct (39.0-53.0) % RDW (11.5-15.5) % Lymphocytes # (1.0-4.8) k/uL Sodium (137-145) mmol/L Creatinine (0.66-1.25) mg/dL Glucose (74-99) mg/dL Plasma Lactic Acid Sherman (0.7-2.0) mmol/L Alkaline Phosphatase (38-126) U/L Lactate Dehydrogenase 642 H (313-618) U/L C-Reactive Protein 25.5 H (<10.0) mg/L Diabetes panel 05/20/20 Range/Units 05:35 Sodium 136 L (137-145) mmol/L Potassium 4.0 (3.5-5.1) mmol/L Chloride 101 (98-107) mmol/L Carbon Dioxide 24 (22-30) mmol/L BUN 17 (9-20) mg/dL Creatinine 0.56 L (0.66-1.25) mg/dL Glucose 117 H (74-99) mg/dL Calcium 9.2 (8.4-10.2) mg/dL AST 42 (17-59) U/L ALT 22 (4-49) U/L Alkaline Phosphatase 132 H (38-126) U/L Total Protein 7.7 (6.3-8.2) g/dL Albumin 4.1 (3.5-5.0) g/dL Calcium panel 05/20/20 Range/Units 05:35 Calcium 9.2 (8.4-10.2) mg/dL Albumin 4.1 (3.5-5.0) g/dL Pituitary panel 05/20/20 Range/Units 05:35 Sodium 136 L (137-145) mmol/L Potassium 4.0 (3.5-5.1) mmol/L Chloride 101 (98-107) mmol/L Carbon Dioxide 24 (22-30) mmol/L BUN 17 (9-20) mg/dL Creatinine 0.56 L (0.66-1.25) mg/dL Glucose 117 H (74-99) mg/dL Calcium 9.2 (8.4-10.2) mg/dL Adrenal panel 05/20/20 Range/Units 05:35 Sodium 136 L (137-145) mmol/L Potassium 4.0 (3.5-5.1) mmol/L Chloride 101 (98-107) mmol/L Carbon Dioxide 24 (22-30) mmol/L BUN 17 (9-20) mg/dL Creatinine 0.56 L (0.66-1.25) mg/dL Glucose 117 H (74-99) mg/dL Calcium 9.2 (8.4-10.2) mg/dL Total Bilirubin 1.2 (0.2-1.3) mg/dL AST 42 (17-59) U/L ALT 22 (4-49) U/L Alkaline Phosphatase 132 H (38-126) U/L Total Protein 7.7 (6.3-8.2) g/dL Albumin 4.1 (3.5-5.0) g/dL
[2020-05-20] MEDS ORDERED: IV FLUID CONTINUATION 1,000 ML IV ONE (15:59)
[2020-05-20] MEDS: ONDANSETRON 4 MG/2 ML VIAL IVP ONE ×2 (16:05→18:55)
[2020-05-20] MEDS ORDERED: HEPARIN SODIUM,PORCINE/PF 5,000 UNIT/0.5 ML SYRINGE SQ ONE (16:10)
--- NOTE | 2020-05-20 16:28 | P.CONS ---
History of Present Illness - Reason for Consult Consult date: 05/20/20 pain Requesting physician: Curtis Johnson - Chief Complaint Abdominal pain - History of Present Illness Mr. sexton is a very pleasant male patient of Dr. Arnold, seen initially 11/19/17. Presented with swelling in the right neck, 1 month, associated symptoms of altered speech, nasal congestion, difficulty swallowing, audible changes and breath sounds. The mass was hard but not painful. CT showed a 4 x 3 cm mass involving the right tonsil, extending inferiorly into the hypopharynx on the right, downward extension measured 6 cm. Mass crossed the midline. Tumor felt to involve anterior triangle right side cervical lymph nodes. CTC AP was negative other than a 1.5 x 2 cm focus in the liver, felt indeterminate. Patient was seen by ENT, GI and pulmonary. She underwent tracheostomy due to concerns for airway compromise. PEG placed. Biopsies 11/22/17 from pharyngeal mass and FNA right-sided neck node positive for invasive, poorly differentiated, squamous cell carcinoma, P 16 positive. Staging PET scan 12/03/17 fungating mass along the lower nasopharynx, involved soft palate and pontine tonsils, extended to the right base of the tongue and right pharyngeal space, right nasopharyngeal airway was obliterated, some submandibular nodes, right cervical lymph node involvement. No evidence of metastatic disease. Patient was going to have induction chemotherapy with cisplatin and Taxotere but, was unable to mentally handle the diagnosis and treatment so he proceeded to hospice care. 01/29 he decided to come off hospice and seek treatment. He was restaged with a PET. Same diseases previous with additional disease in the right cervical area, left upper cervical node 2 areas of uptake in the T-spine. He was started on Carbo/Taxol/Erbitux. He completed 3 cycles on 05/13/18, with an excellent response, clinically and by PET. He was then started on RT, and continued the same chemo regimen on a weekly schedule. Completed chemoRT in the 1st wk of 07/31. Trach was removed in 08/30. PET 09/30 showed improved uptake in the temi area, with decrease in soft tissue at the primary site though uptake was slightly increased. He was then seen by Dr. Grayson, with multiple biopsies. Per the pt, one area was suspicious, but felt to be most likely negative on second opinion. PET 01/11/19 showed further decrease in uptake in the base of the tongue and temi areas but, new uptake with sclerosis in transverse process of T9, and the rt hip. MRI did not show suspicious findings in the thoracic spine, but right hip area was more suspicious. Referred for a bone biopsy, 03/12/19 from T9, positive for squamous cell carcinoma consistent with metastatic head and neck primary. He received radiation to the T9 lesion, completing that in 04/07. Started on 2nd line systemic therapy with Opdivo 04/18/19. He had follow- up scans in July/2019 and 03/22/20. He received SBRT to the right hip lesion in August 2019. He had an ENT examination that was nonspecific. PET earlier this year had some concern for left sternum, right lobe of the liver and at L5. Case was reviewed by corey veliz. L5 and the liver lesion were more suspicious, the sternal lesion was less specific. SBRT to treat those lesions was done completed at the end of April. Patient is currently s/p 14 cycles of up D well, due for cycle 15 today. Follow-up planned and scans are already scheduled for 06/01. Patient states that he has had this intermittent epigastric pain since about [place], never been as severe as it was last night. It is associated with nausea, he vomited once, became persistent last night, pain is localized to the epigastric area, radiates through to the back. Denies any acute changes in his bowel habits, his appetite is down due to nausea. He does not recall any recent fevers, he uses his PEG tube appropriately. He is experiencing some increase in his back pain right now. No acute changes in ability to swallow, breathing, no bleeding or swelling. Past Medical History Past Medical History: Cancer, GI Bleed, Hyperlipidemia, Osteoarthritis (OA) Additional Past Medical History / Comment(s): Pt recently admitted to [facility] on 04/23/20 with abdominal pain, nausea/vomiting/fevers and was tx with antibiotics. 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 Past Anesthesia/Blood Transfusion Reactions: No Reported Reaction Smoking Status: Former smoker - Past Family History Father Family Medical History: Cancer Additional Family Medical History / Comment(s): prostate cancer that spread to the brain Mother Family Medical History: Cancer Additional Family Medical History / Comment(s): ovarian cancer Sister(s) Family Medical History: Cancer Additional Family Medical History / Comment(s): breast cancer Medications and Allergies Home Medications Medication Instructions Recorded Confirmed Type PARoxetine HCL [Paxil] 10 mg PEG/G-TUBE HS 08/28/19 05/20/20 History Nivolumab [Opdivo] 100 mg IV QMONTHLY 10/27/19 05/20/20 History ALPRAZolam [Xanax] 0.5 mg PEG/G-TUBE BID 02/16/20 05/20/20 History Aspirin 81 mg PEG/G-TUBE DAILY 03/02/20 05/20/20 History Atorvastatin [Lipitor] 10 mg PEG/G-TUBE HS 03/02/20 05/20/20 History HYDROcodone/APAP 10-325MG [[place] 10 mg PEG/G-TUBE TID PRN 04/15/20 05/20/20 History 10-325] Esomeprazole Magnesium 20 mg PEG/G-TUBE DAILY 05/20/20 05/20/20 History Fluconazole [Diflucan] 150 mg PEG/G-TUBE Q72H 05/20/20 05/20/20 History Nystatin 100,000 Unit/ml Susp 500,000 units PO QID 05/20/20 05/20/20 History [Mycostatin Oral Susp] Allergies Allergy/AdvReac Type Severity Reaction Status Date / Time adhesive tape Allergy Rash/Hives Verified 05/20/20 10:21 latex Allergy Rash/Hives Verified 05/20/20 10:21 Physical Exam Vitals: Vital Signs Temp Pulse Pulse Resp BP BP Pulse Ox 05/20/20 12:37 98.2 F 84 16 122/74 97 05/20/20 12:14 95 17 110/59 98 05/20/20 04:58 97.4 F L 79 18 139/79 91 L Intake and Output 05/19/20 05/20/20 05/20/20 22:59 06:59 14:59 Other: Weight 71.214 kg 71.214 kg Results CBC & Chem 7: 05/20/20 05:35 05/20/20 05:35 Labs: Abnormal Lab Results - Last 24 Hours (Table) 05/20/20 05/20/20 05/20/20 Range/Units 05:35 05:35 05:35 RBC 3.58 L (4.30-5.90) m/uL Hgb 11.1 L (13.0-17.5) gm/dL Hct 33.5 L (39.0-53.0) % RDW 19.0 H (11.5-15.5) % Lymphocytes # 0.1 L (1.0-4.8) k/uL Sodium 136 L (137-145) mmol/L Creatinine 0.56 L (0.66-1.25) mg/dL Glucose 117 H (74-99) mg/dL Plasma Lactic Acid Sherman 2.9 H* (0.7-2.0) mmol/L Alkaline Phosphatase 132 H (38-126) U/L Lactate Dehydrogenase (313-618) U/L C-Reactive Protein (<10.0) mg/L 05/20/20 Range/Units 05:35 RBC (4.30-5.90) m/uL Hgb (13.0-17.5) gm/dL Hct (39.0-53.0) % RDW (11.5-15.5) % Lymphocytes # (1.0-4.8) k/uL Sodium (137-145) mmol/L Creatinine (0.66-1.25) mg/dL Glucose (74-99) mg/dL Plasma Lactic Acid Sherman (0.7-2.0) mmol/L Alkaline Phosphatase (38-126) U/L Lactate Dehydrogenase 642 H (313-618) U/L C-Reactive Protein 25.5 H (<10.0) mg/L Assessment and Plan (1) Abdominal pain Narrative/Plan: Reviewed patient's chart. Discussed with patient. He is diagnosed with acute cholecystitis. There are plans for laparoscopic cholecystectomy. Agree with surgical intervention. Current Visit: Yes Status: Acute Priority: High Code(s): R10.9 - UNSPECIFIED ABDOMINAL PAIN SNOMED Code(s): 41635019 (2) Esophageal cancer Narrative/Plan: Patient has been on nivolumab, tolerating very well. There are no contraindications for laparoscopic cholecystectomy procedure. Patient recently completed SBRT to very local disease and the bone and liver. Due for follow-up scans, these are artery scheduled Current Visit: No Status: Chronic Priority: Medium Code(s): C15.9 - MALIGNANT NEOPLASM OF ESOPHAGUS, UNSPECIFIED SNOMED Code(s): 311287568
[2020-05-20] MEDS ORDERED: HEPARIN SODIUM,PORCINE 5,000 UNIT/ML 1 ML VIAL SQ ONE (16:57)
[2020-05-20] MEDS ORDERED: PROPOFOL 10 MG/ML 20 ML VIAL IV ONE (17:07)
[2020-05-20] MEDS ORDERED: MIDAZOLAM 2 MG/2 ML VIAL ONE (17:07)
[2020-05-20] MEDS ORDERED: NEOSTIGMINE 1 MG/ML 10 ML VIAL ONE (17:07)
[2020-05-20] MEDS ORDERED: fentaNYL (PF) 50 MCG/ML 2 ML AMP ONE (17:07)
[2020-05-20] MEDS ORDERED: SUCCINYLCHOLINE CHLORIDE 100 MG/5 ML SYR IV ONE (17:07)
[2020-05-20] MEDS ORDERED: VASOPRESSIN 20 UNIT/ML 1 ML VIAL ONE (17:07)
[2020-05-20] MEDS ORDERED: LIDOCAINE 1% INJ 10MG/ML (20 ML MDV) ONE (17:07)
[2020-05-20] MEDS ORDERED: PHENYLEPHRINE-0.9% NACL SYG 1,000 MCG/10 ML SYRINGE ONE (17:07)
[2020-05-20] MEDS ORDERED: GLYCOPYRROLATE 0.2 MG/ML 2 ML VIAL ONE (17:07)
[2020-05-20] MEDS ORDERED: ROCURONIUM 10 MG/ML (5 ML VIAL) IV ONE (17:07)
[2020-05-20] MEDS ORDERED: BUPIVACAINE (PF) 0.25% 30 ML VIAL SQ ONE (17:30)
[2020-05-20] MEDS ORDERED: LACTATED RINGERS 1,000 ML IV ONE (17:47)
--- NOTE | 2020-05-20 18:14 | P.OP ---
Date of Procedure: 05/20/20 Preoperative Diagnosis: Cholecystitis Postoperative Diagnosis: Cholecystitis Procedure(s) Performed: Diagnostic laparoscopy Open cholecystectomy Anesthesia: BLAINE Surgeon: Raheem Zaragoza Estimated Blood Loss (ml): 5 Pathology: other (Gallbladder) Condition: stable Disposition: PACU Description of Procedure: The patient's placed on the operating table in supine position. He received general anesthesia. His abdomen was then prepped and draped in sterile fashion. Using a 5 mm optical trocar and left upper quadrant the peritoneal cavity was entered. The abdomen was insufflate. After adequate insufflation the laparoscope was placed in the pleural cavity. There are dense adhesions seen throughout the peritoneal cavity. At this point decided to proceed open procedure. The trocar and laps were withdrawn. Steroid subcostal incision was made. R is divide the abdominal wall. The [place] retractors placed a wound. The gallbladder. Be very inflamed. The colon was attached to the gallbladder this was bluntly dissected off the gallbladder. The gallbladder was then taken down in a dome down technique. The cystic duct and cystic artery bluntly dissected. A critical view of safety was seen. The cystic duct was then ligated with 2-0 Ethibond suture and the tie knot device. The cystic artery was ligated similar fashion. The cystic artery and cystic duct were then transected with the metastases months scissors. The gallbladder to pathology. Liver bed was achieved scissors. Several small bleeding points were quadrant.. Abdomen was irrigated. The fascia was closed with looped #1 PDS suture. Skin was closed monae. Patient top she will was sent to recovery room in stable condition.
[2020-05-20] MEDS: MORPHINE SULFATE 4 MG/ML SYRINGE IVP ONE ×2 (18:39→18:44)
[2020-05-20] MEDS: PIPERACILLIN-TAZOBACTAM 3.375 GM in SODIUM CHLORIDE 0.9% 100 ML IVPB SCH (20:26)
[2020-05-20] MEDS: ATORVASTATIN 10 MG TAB PEG/G-TUBE SCH (20:28)
[2020-05-20] MEDS: SALT AND SODA MOUTHWASH 1,000 ML PO SCH ×2 (21:50→21:52)
[2020-05-20] MEDS: LIDOCAINE 5% PATCH TOPICAL SCH (22:22)
[2020-05-20] MEDS: PARoxetine 10 MG TAB PEG/G-TUBE SCH (22:29)
[2020-05-20] MEDS: HYDROmorphone 1 MG/ML 1 ML SYRINGE IVP PRN (23:35)
[2020-05-21] MEDS: SALT AND SODA MOUTHWASH 1,000 ML PO SCH ×6 (01:54→23:56)
[2020-05-21] MEDS: PIPERACILLIN-TAZOBACTAM 3.375 GM in SODIUM CHLORIDE 0.9% 100 ML IVPB SCH ×4 (01:55→20:19)
[2020-05-21] MEDS: HYDROmorphone 1 MG/ML 1 ML SYRINGE IVP PRN ×6 (04:02→23:56)
[2020-05-21] MEDS: SODIUM CHLORIDE 0.9% 1,000 ML IV SCH ×4 (04:08→20:29)
--- NOTE | 2020-05-21 08:38 | XR ---
EXAMINATION TYPE: XR chest 2V DATE OF EXAM: 05/21/2020 COMPARISON: 05/20/2020 HISTORY: 65-year-old male pneumonia, recent cholecystectomy TECHNIQUE: Frontal and lateral views FINDINGS: Heart normal size. Aortopulmonary vasculature within normal limits. Right apical pleural-parenchymal scarring. Mild strandy density at the left base suggesting atelectasis. Some improving aeration of th e right base probably mild free air noted below the right hemidiaphragm. No pleural effusion. IMPRESSION: Improving aeration at the right base but with new mild free air below the right hemidiaphragm. Given history of recent cholecystectomy, this likely is postoperative. Clinically correlate.
[2020-05-21 09:31] LABS: Anisocytosis Slight; Basophils % (A) 0 %; Eosinophils # (A) 0.1 k/uL (0-0.7); Eosinophils % (A) 1 %; HCT 28.8 % (39.0-53.0); Hypochromasia Slight; Lymphocytes # (A) 0.1 k/uL (1.0-4.8); Lymphocytes % (A) 1 %; MCH 31.8 pg (25.0-35.0); MCHC 32.9 g/dL (31.0-37.0); MCV 96.7 fL (80.0-100.0); Macrocytosis Slight; Mean Platelet Volume 8.1; Monocytes # (A) 0.6 k/uL (0-1.0); Monocytes % (A) 8 %; Neutrophils # (A) 6.8 k/uL (1.3-7.7); Neutrophils % (A) 89 %; Platelet Count 167 k/uL (150-450); RBC 2.98 m/uL (4.30-5.90); RDW 19.2 % (11.5-15.5); WBC 7.6 k/uL (3.8-10.6)
[2020-05-21 09:34] LABS: HGB 9.5 gm/dL (13.0-17.5)
[2020-05-21] MEDS: AZITHROMYCIN 500 MG in SODIUM CHLORIDE 0.9% 250 ML IVPB SCH (10:02)
[2020-05-21] MEDS: ENOXAPARIN 40 MG/0.4 ML SYRINGE SQ SCH (10:04)
[2020-05-21] MEDS: LIDOCAINE 5% PATCH TOPICAL SCH (10:06)
[2020-05-21] MEDS: ALPRAZolam 1 MG TAB PEG/G-TUBE SCH ×2 (10:07→20:19)
[2020-05-21] MEDS: ASPIRIN 81 MG PEG/G-TUBE SCH (10:07)
[2020-05-21 11:17] VITALS: BMI 25.3
--- NOTE | 2020-05-21 14:20 | P.PN ---
Subjective Progress Note Date: 05/21/20 CHIEF COMPLAINT: Abdominal pain HISTORY OF PRESENT ILLNESS: Patient status post diagnostic laparoscopy and open cholecystectomy for cholecystitis. Postop day #1. Patient lying in bed comfortably. Pain is controlled. Denies any nausea or vomiting. His tube feedings have been restarted. Afebrile. Heart rate 107 WBC 7.6 hemoglobin 9.5 platelets 167 Chest x-ray improving aeration at the right base but with new mild free air below the right hemidiaphragm. Given history of recent cholecystectomy this is likely postoperative. Patient seen and examined with Dr. Zaragoza PHYSICAL EXAM: VITAL SIGNS: Reviewed. GENERAL: Well-developed in no acute distress. HEENT: No sclera icterus. Extraocular movements grossly intact. Moist buccal mucosa. Head is atraumatic, normocephalic. ABDOMEN: Soft. Nondistended. Incisional dressing saturated with blood. This was removed. Incision site clean, dry and intact NEUROLOGIC: Alert and oriented. Cranial nerves II through XII grossly intact. ASSESSMENT: 1. Acute Cholecystitis status post diagnostic laparoscopy and open cholecystectomy 2. History of esophageal cancer PLAN: -Resume tube feedings -Continue IV fluids -Continue antibiotics -Continue pain medication as needed -Surgical dressing changed -Encourage incentive spirometer use -Encourage patient to increase activity Physician Slack Line Yarder note has been reviewed by physician. Signing provider agrees with the documented findings, assessment, and plan of care. Objective - Vital Signs Vital signs: Vital Signs Temp 98.2 F 05/21/20 07:22 Pulse 107 H 05/21/20 07:22 Resp 18 05/21/20 07:22 BP 129/72 05/21/20 07:22 Pulse Ox 97 05/21/20 07:22 Intake & Output 05/20/20 05/21/20 05/21/20 18:59 06:59 18:59 Intake Total 1000 Output Total 50 200 Balance 950 -200 Weight 71.214 kg 71.214 kg 71.214 kg Intake: IV 800 Intake, IV Titration 200 Amount Sodium Chloride 0.9% 1, 200 000 ml @ 100 mls/hr IV . Q10H DIANE Rx#:[id number] Output: Urine 200 Estimated Blood Loss 50 Other: Voiding Method Urinal # Voids 2 - Labs CBC & Chem 7: 05/21/20 08:21 05/20/20 05:35 Labs: Abnormal Lab Results - Last 24 Hours (Table) 05/21/20 Range/Units 08:21 RBC 2.98 L (4.30-5.90) m/uL Hgb 9.5 L D (13.0-17.5) gm/dL Hct 28.8 L (39.0-53.0) % RDW 19.2 H (11.5-15.5) % Lymphocytes # 0.1 L (1.0-4.8) k/uL Microbiology - Last 24 Hours (Table) 05/20/20 09:21 Blood Culture - Preliminary Blood No Growth after 24 hours 05/20/20 09:09 Blood Culture - Preliminary Blood No Growth after 24 hours
--- NOTE | 2020-05-21 14:35 | P.PN ---
Subjective Progress Note Date: 05/21/20 Principal diagnosis: Acute Cholecystitis [place] is status post diagnostic laparoscopy and open cholecystectomy for cholecystitis. Objective - Vital Signs Vital signs: Vital Signs Temp 98.2 F 05/21/20 07:22 Pulse 107 H 05/21/20 07:22 Resp 18 05/21/20 07:22 BP 129/72 05/21/20 07:22 Pulse Ox 97 05/21/20 07:22 Intake & Output 05/20/20 05/21/20 05/21/20 18:59 06:59 18:59 Intake Total 1000 Output Total 50 200 Balance 950 -200 Weight 71.214 kg 71.214 kg 71.214 kg Intake: IV 800 Intake, IV Titration 200 Amount Sodium Chloride 0.9% 1, 200 000 ml @ 100 mls/hr IV . Q10H DIANE Rx#:[id number] Output: Urine 200 Estimated Blood Loss 50 Other: Voiding Method Urinal # Voids 2 - Constitutional General appearance: Present: cooperative, no acute distress - EENT Eyes: Present: EOMI, PERRLA, poor dentition ENT: Present: NA/AT, normal oropharynx - Neck Neck: Present: normal ROM - Respiratory Respiratory: bilateral: CTA - Cardiovascular Rhythm: regular - Gastrointestinal Gastrointestinal Comment(s): Evidence of laparoscopic procedure General gastrointestinal: Present: distended, tenderness - Integumentary Integumentary: Present: pale - Neurologic Neurologic: Present: CNII-XII intact - Musculoskeletal Musculoskeletal: Present: generalized weakness, strength equal bilaterally - Psychiatric Psychiatric: Present: A&O x's 3, appropriate affect, intact judgment & insight - Labs CBC & Chem 7: 05/21/20 08:21 05/21/20 08:21 Labs: Abnormal Lab Results - Last 24 Hours (Table) 05/21/20 Range/Units 08:21 RBC 2.98 L (4.30-5.90) m/uL Hgb 9.5 L D (13.0-17.5) gm/dL Hct 28.8 L (39.0-53.0) % RDW 19.2 H (11.5-15.5) % Lymphocytes # 0.1 L (1.0-4.8) k/uL Microbiology - Last 24 Hours (Table) 05/20/20 09:21 Blood Culture - Preliminary Blood No Growth after 24 hours 05/20/20 09:09 Blood Culture - Preliminary Blood No Growth after 24 hours Assessment and Plan Plan: Assessment and Plan (1) Abdominal pain - Surgery is following for acute cholecystitis. - TStatus Post laparoscopic cholecystectomy on 05/20/20 - tolerated well and recovering (2) Esophageal cancer - Patient has been on nivolumab, tolerating very well. - There was no contraindications for laparoscopic cholecystectomy procedure. - Patient recently completed SBRT to very local disease and the bone and liver. - Due for follow-up scans, which are scheduled Physician Attest: I have completed the full history and physical and agree with above dictation, dictated as a scribe.
[2020-05-21 16:14] LABS: African American GFR (CKD) 108.6 (60.0-200.0); Albumin 3.8 g/dL (3.80-4.90); Albumin/Globulin Ratio 1.58 (1.60-3.17); Anion Gap 9.4 mmol/L (4.00-12.00); BUN/Creat Ratio 27.5 Ratio (12.00-20.00); Calcium 8.7 mg/dL (8.7-10.3); Carbon Dioxide 23.6 mmol/L (21.6-31.8); Globulin 2.4 g/dL (1.6-3.3); Non-African American GFR(CKD) 93.7 (60.0-200.0); Potassium 4.3 mmol/L (3.5-5.5); Total Bilirubin 1.6 mg/dL (0.3-1.2); Total Protein 6.2 g/dL (6.2-8.2)
--- NOTE | 2020-05-21 17:36 | PN ---
PROGRESS NOTE This is a 65-year-old who is still having mild tachycardia at 105. His blood pressure has been low at around 105 systolic, so we are going to hold off on beta nacho at this time and give him fluids; increase his fluids from 100 to 125. He is status post open cholecystectomy and pneumonia with right pleural effusion. He continues on Lovenox subcutaneously, azithromycin for possible pneumonia as well as Zosyn. Pulse is 105, blood pressure 153/85, temperature 98.3, O2 saturation 97% on room air. CARDIOVASCULAR: S1, S2. Mild tachycardia. HEMATOLOGY: Negative Homans. GI: Bandage over the abdomen with open incision. ASSESSMENT: 1. Status post open cholecystectomy. 2. Tachycardia; was hypotensive, now hypertensive. Will add low-dose beta nacho for tachycardia. Continue with broad-spectrum antibiotics for community-acquired pneumonia. Prognosis guarded. MMODL / IJN: [id number] /
[2020-05-21] MEDS: ATORVASTATIN 10 MG TAB PEG/G-TUBE SCH (20:20)
[2020-05-21] MEDS: PARoxetine 10 MG TAB PEG/G-TUBE SCH (20:20)
[2020-05-22] MEDS: HYDROmorphone 1 MG/ML 1 ML SYRINGE IVP PRN ×4 (03:22→19:32)
[2020-05-22] MEDS: PIPERACILLIN-TAZOBACTAM 3.375 GM in SODIUM CHLORIDE 0.9% 100 ML IVPB SCH ×3 (03:23→19:17)
[2020-05-22] MEDS: SALT AND SODA MOUTHWASH 1,000 ML PO SCH ×4 (05:30→19:18)
[2020-05-22 08:06] LABS: Anisocytosis Slight; Basophils % (A) 0 %; Eosinophils # (A) 0.1 k/uL (0-0.7); Eosinophils % (A) 2 %; HGB 10.2 gm/dL (13.0-17.5); Hypochromasia Moderate; Lymphocytes # (A) 0.3 k/uL (1.0-4.8); Lymphocytes % (A) 5 %; MCH 30.8 pg (25.0-35.0); MCHC 31.7 g/dL (31.0-37.0); MCV 97.2 fL (80.0-100.0); Macrocytosis Slight; Mean Platelet Volume 8.3; Monocytes # (A) 0.7 k/uL (0-1.0); Monocytes % (A) 9 %; Neutrophils # (A) 5.7 k/uL (1.3-7.7); Neutrophils % (A) 82 %; Platelet Count 159 k/uL (150-450); Poikilocytosis Slight; RBC 3.29 m/uL (4.30-5.90); RDW 19.3 % (11.5-15.5); WBC 6.9 k/uL (3.8-10.6)
[2020-05-22 08:25] LABS: ALT 37 U/L (4-49); African American GFR (CKD) >90 (>60 ml/min/1.73 sqM); Albumin 3.3 g/dL (3.5-5.0); Anion Gap 12 mmol/L; Blood Urea Nitrogen 16 mg/dL (9-20); Calcium 8.6 mg/dL (8.4-10.2); Carbon Dioxide 18 mmol/L (22-30); Chloride 106 mmol/L (98-107); Globulin 3.3 g/dL; Glucose 113 mg/dL (74-99); Non-African American GFR(CKD) >90 (>60 ml/min/1.73 sqM); Sodium 136 mmol/L (137-145); Total Bilirubin 1.4 mg/dL (0.2-1.3); Total Protein 6.6 g/dL (6.3-8.2)
[2020-05-22 08:29] LABS: AST 76 U/L (17-59); Alkaline Phosphatase 93 U/L (38-126); Potassium 3.9 mmol/L (3.5-5.1)
[2020-05-22] MEDS: ASPIRIN 81 MG PEG/G-TUBE SCH (09:16)
[2020-05-22] MEDS: ENOXAPARIN 40 MG/0.4 ML SYRINGE SQ SCH (09:16)
[2020-05-22] MEDS: ALPRAZolam 1 MG TAB PEG/G-TUBE SCH ×2 (09:16→19:17)
[2020-05-22] MEDS: AZITHROMYCIN 500 MG in SODIUM CHLORIDE 0.9% 250 ML IVPB SCH (09:17)
[2020-05-22] MEDS: LIDOCAINE 5% PATCH TOPICAL SCH (09:18)
--- NOTE | 2020-05-22 11:07 | P.PN ---
Subjective Progress Note Date: 05/22/20 Principal diagnosis: Cholecystitis Patient doing well today. Pain is well-controlled. Tolerating tube feeds at goal. White blood cell count is normal. Objective - Vital Signs Vital signs: Vital Signs Temp 98.2 F 05/22/20 07:00 Pulse 94 05/22/20 07:00 Resp 16 05/22/20 07:00 BP 151/76 05/22/20 07:00 Pulse Ox 97 05/22/20 07:00 Intake & Output 05/21/20 05/22/20 05/22/20 18:59 06:59 18:59 Weight 71.6 kg Other: Voiding Method Urinal - Exam Abdomen: Soft, nondistended, incision clean and dry - Labs CBC & Chem 7: 05/22/20 07:10 05/22/20 07:10 Labs: Abnormal Lab Results - Last 24 Hours (Table) 05/21/20 05/22/20 05/22/20 Range/Units 08: 07:10 07:10 RBC 3.29 L (4.30-5.90) m/uL Hgb 10.2 L (13.0-17.5) gm/dL Hct 32.0 L (39.0-53.0) % RDW 19.3 H (11.5-15.5) % Sodium 136 L (137-145) mmol/L Carbon Dioxide 18 L (22-30) mmol/L Creatinine 0.54 L (0.66-1.25) mg/dL BUN/Creatinine Ratio 27.50 H (12.00-20.00) Ratio Glucose 129 H 113 H (70-110) mg/dL Total Bilirubin 1.6 H 1.4 H (0.3-1.2) mg/dL AST 66 H 76 H (14-35) U/L Albumin 3.3 L (3.5-5.0) g/dL Albumin/Globulin Ratio 1.58 L (1.60-3.17) g/dL Microbiology - Last 24 Hours (Table) 05/20/20 09:21 Blood Culture - Preliminary Blood No Growth after 24 hours 05/20/20 09:09 Blood Culture - Preliminary Blood No Growth after 24 hours Assessment and Plan (1) Abdominal pain Narrative/Plan: Patient doing well today. Continue tube feeds at goal. Continue pain control. Increase activity. Current Visit: Yes Status: Acute Priority: High Code(s): R10.9 - UNSPECIFIED ABDOMINAL PAIN SNOMED Code(s): 54278690
[2020-05-22] MEDS: SODIUM CHLORIDE 0.9% 1,000 ML IV SCH ×2 (14:13→16:21)
[2020-05-22] MEDS: HYDROcodone/APAP 10-325MG 1 EACH TAB PO PRN ×2 (16:22→23:28)
[2020-05-22] MEDS: ATORVASTATIN 10 MG TAB PEG/G-TUBE SCH (19:18)
[2020-05-22] MEDS: PARoxetine 10 MG TAB PEG/G-TUBE SCH (19:18)
[2020-05-22] MEDS ORDERED: MAGNESIUM HYDROXIDE 2,400 MG/10 ML CUP PO PRN (19:49)
[2020-05-23] MEDS: SODIUM CHLORIDE 0.9% 1,000 ML IV SCH ×2 (01:15→10:35)
[2020-05-23] MEDS: SALT AND SODA MOUTHWASH 1,000 ML PO SCH ×3 (01:15→10:34)
[2020-05-23] MEDS: PIPERACILLIN-TAZOBACTAM 3.375 GM in SODIUM CHLORIDE 0.9% 100 ML IVPB SCH (03:06)
[2020-05-23 03:22] VITALS: RESP 16
--- NOTE | 2020-05-23 05:17 | PN ---
PROGRESS NOTE 65-year-old white male status post open cholecystectomy, starting out tube feedings. He is constipated today. We will give milk of magnesia through his gastric tube. Pain level 6/10. He has a bandage over his right abdomen. Cardiovascular S1-S2. Lungs clear. Psych: Fair mood and affect. Neurologic: Alert orient x3. Ophthalmologic: Pupils equal, round, reactive. ASSESSMENT: 1. Status post cholecystitis, open cholecystectomy due to multiple abdominal adhesions. 2. Prior esophageal cancer, esophageal dysmobility with feeding tube. Oral intake is not possible. Continue current treatment. Standard postop care. Possible discharge home soon after clearance from surgeon. MMODL / IJN: [id number] /
[2020-05-23 07:22] VITALS: BP 138/71; PULSE 79; TEMP 98.2
[2020-05-23] MEDS: HYDROcodone/APAP 10-325MG 1 EACH TAB PO PRN (07:31)
[2020-05-23] MEDS: ASPIRIN 81 MG PEG/G-TUBE SCH (09:21)
[2020-05-23] MEDS: ENOXAPARIN 40 MG/0.4 ML SYRINGE SQ SCH (09:21)
[2020-05-23] MEDS: ALPRAZolam 1 MG TAB PEG/G-TUBE SCH (09:21)
[2020-05-23] MEDS: LIDOCAINE 5% PATCH TOPICAL SCH (09:25)
[2020-05-23] MEDS: AZITHROMYCIN 500 MG in SODIUM CHLORIDE 0.9% 250 ML IVPB SCH (10:32)
--- NOTE | 2020-05-23 10:47 | P.PN ---
Subjective Progress Note Date: 05/23/20 Principal diagnosis: Cholecystitis Patient doing well today. Tolerating tube feeds. Denies pain. Objective - Vital Signs Vital signs: Vital Signs Temp 98.2 F 05/23/20 07:00 Pulse 79 05/23/20 07:00 Resp 16 05/23/20 07:00 BP 138/71 05/23/20 07:00 Pulse Ox 96 05/23/20 07:00 Intake & Output 05/22/20 05/23/20 05/23/20 18:59 06:59 18:59 Weight 72.6 kg 71.5 kg Other: Voiding Method Urinal - Exam Abdomen: Soft, nondistended, PEG tube in place, incision clean and dry - Labs CBC & Chem 7: 05/22/20 07:10 05/22/20 07:10 Labs: Abnormal Lab Results - Last 24 Hours (Table) 05/22/20 Range/Units 07:10 Lymphocytes # 0.3 L (1.0-4.8) k/uL Microbiology - Last 24 Hours (Table) 05/20/20 09:21 Blood Culture - Preliminary Blood No Growth after 48 hours 05/20/20 09:09 Blood Culture - Preliminary Blood No Growth after 48 hours Assessment and Plan (1) Abdominal pain Narrative/Plan: Patient doing well at this time. Continue tube feeds as tolerated. Stable for discharge 24-48 hours. Current Visit: Yes Status: Acute Priority: High Code(s): R10.9 - UNS PECIFIED ABDOMINAL PAIN SNOMED Code(s): 27462033
--- NOTE | 2020-05-23 11:01 | PN ---
PROGRESS NOTE A 65-year-old white male status post cholecystitis, open cholecystectomy. Pain is controlled. He is doing better and he is getting up out of bed. White count is normal. Temperature 98.2, pulse 90 to 94, respiratory rate 16 to 18, blood pressure 150s over 70s, O2 97. He is getting tube feedings. White count 6.9, hemoglobin is 10.2. Continue tube feeds. Continue pain control. Increase activity. Possible discharge home whenever he is cleared by Surgery. He is doing much better. MMODL / IJN: [id number] /
--- NOTE | 2020-05-23 13:32 | DS ---
DISCHARGE SUMMARY 65-year-old white male came in with acute abdominal pain, acute colic, acute cholecystitis. Had open cholecystectomy due to severe adhesions. He underwent open cholecystectomy. He was restarted on tube feedings after his pain has been controlled. He has a long incision that looks clean, dry, intact. On discharge he will follow up as an outpatient. Home medicine. He had to add atenolol for hypertension and tachycardia and Vibramycin for community-acquired pneumonia secondary to gallbladder. He will finish up with doxycycline 100 b.i.d. for seven days and add Tenormin b.i.d. as his new medicines. He will continue on Paxil 10 mg per PEG tube daily, Opdivo 100 mg IV monthly, Xanax 0.5 PEG tube b.i.d., aspirin 81 mg daily, Lipitor 10 mg daily, Lexapro 20 mg through PEG tube, Diflucan 150 mg per PEG tube, Nystatin suspension 500,000 units p.o. q.i.d. CONDITION: Stable. PROGNOSIS: Guarded. FOLLOW UP: In my office. DIET: Per PEG tube. Continue tube feeds as normal at home. MMODL / IJN: [id number] /
[2020-05-23] MEDS ORDERED: DOXYCYCLINE 100 MG CAP PO SCH (21:00)
== END 2020-05-23 13:12 | disposition home or self-care (01) | DRG 414 ==
LOC: EC 04:55 → 6NMEDSUR 07:35 → OBSVTOIN 05-21 09:40
PROVIDERS: ADMIT Family Medicine; ATTEND Family Medicine
PROC: 0FT40ZZ Resection of Gallbladder, Open Approach (ICD-10-PCS; principal; 2020-05-21)
PROC: 0WJG4ZZ Inspection of Peritoneal Cavity, Percutaneous Endoscopic Approach (ICD-10-PCS; principal; 2020-05-21)
DX: K80.00 Calculus of gallbladder with acute cholecystitis without obstruction (principal); J18.9 Pneumonia, unspecified organism; C15.9 Malignant neoplasm of esophagus, unspecified; C78.7 Secondary malignant neoplasm of liver and intrahepatic bile duct; C79.51 Secondary malignant neoplasm of bone; Z43.1 Encounter for attention to gastrostomy; E78.5 Hyperlipidemia, unspecified; M19.90 Unspecified osteoarthritis, unspecified site; F32.9 Major depressive disorder, single episode, unspecified; K59.00 Constipation, unspecified; Z20.822 Contact with and (suspected) exposure to COVID-19; F41.9 Anxiety disorder, unspecified; Z87.891 Personal history of nicotine dependence; Z90.49 Acquired absence of other specified parts of digestive tract; Z80.42 Family history of malignant neoplasm of prostate; Z80.41 Family history of malignant neoplasm of ovary; Z80.3 Family history of malignant neoplasm of breast; Z80.8 Family history of malignant neoplasm of other organs or systems; Z91.040 Latex allergy status; Z91.048 Other nonmedicinal substance allergy status; Z79.82 Long term (current) use of aspirin; Z79.899 Other long term (current) drug therapy
CPT/HCPCS: 36415; 71045; 71046; 74177; 76705; 80053; 82150; 83605; 83615; 83690; 85025; 86140; 87040; 87635; 88304; 96361; 96374; 96375; 96376; 99285

== ENCOUNTER 2020-05-28 18:36 | Inpatient (IN) | payer MEDICARE, OTHER ==
[2020-05-28 20:05] LABS: ALT 21 U/L (4-49); AST 34 U/L (17-59); African American GFR (CKD) >90 (>60 ml/min/1.73 sqM); Albumin 3.6 g/dL (3.5-5.0); Alkaline Phosphatase 120 U/L (38-126); Anion Gap 15 mmol/L; Blood Urea Nitrogen 21 mg/dL (9-20); Calcium 9.3 mg/dL (8.4-10.2); Carbon Dioxide 24 mmol/L (22-30); Chloride 101 mmol/L (98-107); Glucose 148 mg/dL (74-99); Non-African American GFR(CKD) >90 (>60 ml/min/1.73 sqM); Potassium 3.7 mmol/L (3.5-5.1); Sodium 140 mmol/L (137-145); Total Bilirubin 1.1 mg/dL (0.2-1.3); Total Protein 6.9 g/dL (6.3-8.2)
[2020-05-28] MEDS ORDERED: SODIUM CHLORIDE 0.9% 500 ML 500 ML IV ONE (20:16)
[2020-05-28] MEDS ORDERED: ONDANSETRON 4 MG/2 ML VIAL IVP STA (20:16)
--- NOTE | 2020-05-28 20:28 | XR ---
EXAMINATION TYPE: XR chest 2V DATE OF EXAM: 05/28/2020 COMPARISON: 05/21/2020 HISTORY: Pneumonia. Cholecystectomy. TECHNIQUE: 2 views FINDINGS: There is some mild subsegmental atelectasis and interstitial infiltrate at both lung bases. Heart size is normal. There is no heart failure. There are no hilar masses. IMPRESSION: Interstitial infiltrate and atelectasis at the lung bases increased on the right side com pared to old exam. No heart failure. Normal heart.
--- NOTE | 2020-05-28 20:30 | XR ---
EXAMINATION TYPE: XR KUB DATE OF EXAM: 05/28/2020 COMPARISON: 08/31/2019 HISTORY: Abdominal pain. Cholecystectomy. TECHNIQUE: 2 views upright FINDINGS: There are multiple gas distended loops of small bowel in the mid abdomen. There are skin st aples over the right upper quadrant. There is no evidence of free air. There is some vas deferens emily cification. Bony structures are intact. There is some mild atelectasis and infiltrate at the lung bas es. IMPRESSION: There is small bowel ileus that is new compared to old exam. Mild atelectasis at the lung bases.
[2020-05-28 20:35] LABS: Anisocytosis Slight; Basophils % (A) 0 %; Eosinophils % (A) 0 %; HCT 29.3 % (39.0-53.0); HGB 9.8 gm/dL (13.0-17.5); Hypochromasia Slight; Lymphocytes # (A) 0.2 k/uL (1.0-4.8); Lymphocytes % (A) 2 %; MCH 31.2 pg (25.0-35.0); MCHC 33.5 g/dL (31.0-37.0); MCV 93.3 fL (80.0-100.0); Mean Platelet Volume 8.4; Monocytes # (A) 0.5 k/uL (0-1.0); Monocytes % (A) 4 %; Neutrophils # (A) 11.7 k/uL (1.3-7.7); Neutrophils % (A) 93 %; Platelet Count 211 k/uL (150-450); Poikilocytosis Slight; RBC 3.14 m/uL (4.30-5.90); RDW 18.2 % (11.5-15.5); WBC 12.6 k/uL (3.8-10.6)
--- NOTE | 2020-05-28 21:50 | CT ---
EXAMINATION TYPE: CT abdomen pelvis w con DATE OF EXAM: 05/28/2020 COMPARISON: 05/20/2020 HISTORY: Nausea, vomiting, recent cholecystectomy CT DLP: 774.7 mGycm Automated exposure control for dose reduction was used. CONTRAST: Performed with IV Contrast, patient injected with 100 mL of Isovue 300. Images obtained from the diaphragm to the floor the pelvis with IV contrast. There is some patchy interstitial infiltrate and subsegmental atelectasis in both lower lobes. Heart size is normal. There is no pericardial effusion. There is no pleural effusion. There is gastrostomy tube noted in the anterior stomach. Liver shows no focal defect. The gallbladder fossa appears complex fluid and air bubbles. There is apparent cholecystectomy compared to previous exam. This is not definitely within the bowel.. There is previous surgery at the hepatic flexure of t he colon. Spleen is intact. There is no pancreatic mass. There are multiple dilated loops of air and fluid-filled small bowel in the mid abdomen. Small bowel dilated up to 3.8 cm. Bladder distends sharan hly. There is no inguinal hernia. There is no free fluid in the pelvis. There is no free air in the a nterior abdomen. The lumbar vertebra have normal alignment. There is anterior spurring in the upper lumbar spine. Ther e is no compression fracture. The bony pelvis is intact. The hip joints are intact. IMPRESSION: Multiple dilated small bowel loops suggestive of ileus. Previous large bowel surgery. Large bowel gas pattern does not suggest a mechanical small bowel obstruction. There is probably some large bowel il eus. This is seen in the transverse colon. Complex air and fluid in the right upper quadrant at the gallbladder fossa could relate to an abscess . Bile leak not excluded. This area measures 6.5 x 3.2 cm. There are some interstitial and airspace infiltrates at the lung bases which are mostly new compared to old exam.
--- NOTE | 2020-05-28 22:28 | ED ---
Abdominal Pain HPI - General Chief Complaint: Abdominal Pain Stated Complaint: 1wk post surg/vomiting/fever/pain Time Seen by Provider: 05/28/20 18:40 Source: patient Mode of arrival: wheelchair Limitations: no limitations - History of Present Illness Initial Comments: Patient is a 65-year-old male past medical history of esophageal cancer, ischemic colitis with colostomy and reversal who presents to the emergency room with reported nausea, vomiting and abdominal pain. Patient was hospitalized from the through the . He did have his gallbladder removed on the from Dr. Zaragoza. States that since his discharge he has had abdominal blo ating, nausea and vomiting. States that he is still having bowel movements however are small. Denies any fevers or chills. No black or tarry stools. Patient does have a PEG tube and states that he has had difficulty with his feeds. No other alleviating, precipitating or modifying factors - Related Data Home Medications Medication Instructions Recorded Confirmed PARoxetine HCL [Paxil] 10 mg PEG/G-TUBE HS 08/28/19 06/10/20 Nivolumab [Opdivo] 100 mg IV QMONTHLY 10/27/19 06/10/20 ALPRAZolam [Xanax] 0.5 mg PEG/G-TUBE BID 02/16/20 06/10/20 Aspirin 81 mg PEG/G-TUBE DAILY 03/02/20 06/10/20 Atorvastatin [Lipitor] 10 mg PEG/G-TUBE HS 03/02/20 06/10/20 Esomeprazole Magnesium 20 mg PEG/G-TUBE QAM 05/20/20 06/10/20 Nystatin 100,000 Unit/ml Susp 500,000 units PO QID 05/20/20 06/10/20 [Mycostatin Oral Susp] HYDROcodone/APAP 5-325MG [[place] 1 tab PEG/G-TUBE Q6HR PRN 05/28/20 06/10/20 5-325] atenoloL [Tenormin] 12.5 mg PEG/G-TUBE BID 05/28/20 06/10/20 Jevity 2 can PEG/G-TUBE QID 06/10/20 Allergies Allergy/AdvReac Type Severity Reaction Status Date / Time adhesive tape Allergy Rash/Hives Verified 06/10/20 13:14 latex Allergy Rash/Hives Verified 06/10/20 13:14 Review of Systems ROS Statement: Those systems with pertinent positive or pertinent negative responses have been documented in the HPI. ROS Other: All systems not noted in ROS Statement are negative. Past Medical History Past Medical History: Cancer, GI Bleed, Hyperlipidemia, Osteoarthritis (OA) Additional Past Medical History / Comment(s): Pt recently admitted to [facility] on 04/23/20 with abdominal pain, nausea/vomiting/fevers and was tx with antibiotics. 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 Past Anesthesia/Blood Transfusion Reactions: No Reported Reaction Past Psychological History: Anxiety, Depression Smoking Status: Former smoker Past Alcohol Use History: None Reported Past Drug Use History: None Reported - Past Family History Father Family Medical History: Cancer Additional Family Medical History / Comment(s): prostate cancer that spread to the brain Mother Family Medical History: Cancer Additional Family Medical History / Comment(s): ovarian cancer Sister(s) Family Medical History: Cancer Additional Family Medical History / Comment(s): breast cancer General Exam Limitations: no limitations General appearance: alert, in no apparent distress Head exam: Present: atraumatic, normocephalic, normal inspection Eye exam: Present: normal appearance, PERRL, EOMI. Absent: scleral icterus, conjunctival injection, periorbital swelling ENT exam: Present: normal exam, mucous membranes moist Neck exam: Present: normal inspection. Absent: tenderness, meningismus, lymphadenopathy Respiratory exam: Present: normal lung sounds bilaterally. Absent: respiratory distress, wheezes, rales, rhonchi, stridor Cardiovascular Exam: Present: regular rate, normal rhythm, normal heart sounds. Absent: systolic murmur, diastolic murmur, rubs, gallop, clicks GI/Abdominal exam: Present: distended, tenderness, hypoactive bowel sounds. Absent: guarding, rebound, rigid Extremities exam: Present: normal inspection, full ROM, normal capillary refill. Absent: tenderness, pedal edema, joint swelling, calf tenderness Back exam: Present: normal inspection Neurological exam: Present: alert, oriented X3, CN II-XII intact Psychiatric exam: Present: normal affect, normal mood Skin exam: Present: warm, dry, intact, normal color. Absent: rash Course Vital Signs 05/28/20 05/28/20 05/28/20 18:37 21:09 23:32 Temperature 98.4 F Pulse Rate 94 87 65 Respiratory 24 18 16 Rate Blood Pressure 131/80 130/75 105/56 O2 Sat by Pulse 96 97 94 L Oximetry Procedures - Holmes Protocol (Time Out) Nurse: Val Ramirez Medical Decision Making - Medical Decision Making Upon arrival patient was placed into room 3. History and physical exam is performed. IV is established. Patient was given a 500 bolus of normal saline and 4 mg of Zofran. Laboratory studies were conducted. Lactic acid is 3. Covid not detected. X-ray demonstrated ileus. CT was performed which demons trates multiple dilated small bowel loops suggestive of ileus. Complex air fluid in the right upper quadrant in the gallbladder fossa which could relate to an abscess. Bile leak not excluded. Because of these findings blood cultures were obtained the patient is initiated on Zosyn patient is placed on 130 mL/h for normal saline. Tube feeds will be held at this time. Recommended admission to the hospital for which the patient did agree to. I spoke with Dr. Kaufman who agreed to admit the patient. Dr. Zaragoza and Dr. Smith will be placed on consult. He remained in stable condition awaiting a bed - Lab Data Result diagrams: 06/01/20 05:29 06/01/20 05:29 Lab Results 05/28/20 05/28/20 05/28/20 Range/Units 18:46 18:56 18:56 WBC 12.6 H (3.8-10.6) k/uL RBC 3.14 L (4.30-5.90) m/uL Hgb 9.8 L (13.0-17.5) gm/dL Hct 29.3 L (39.0-53.0) % MCV 93.3 (80.0-100.0) fL MCH 31.2 (25.0-35.0) pg MCHC 33.5 (31.0-37.0) g/dL RDW 18.2 H (11.5-15.5) % Plt Count 211 (150-450) k/uL MPV 8.4 Neutrophils % 93 % Lymphocytes % 2 % Monocytes % 4 % Eosinophils % 0 % Basophils % 0 % Neutrophils # 11.7 H (1.3-7.7) k/uL Lymphocytes # 0.2 L (1.0-4.8) k/uL Monocytes # 0.5 (0-1.0) k/uL Eosinophils # 0.0 (0-0.7) k/uL Basophils # 0.0 (0-0.2) k/uL Hypochromasia Slight Poikilocytosis Slight Anisocytosis Slight Sodium 140 (137-145) mmol/L Potassium 3.7 (3.5-5.1) mmol/L Chloride 101 (98-107) mmol/L Carbon Dioxide 24 (22-30) mmol/L Anion Gap 15 mmol/L BUN 21 H (9-20) mg/dL Creatinine 0.86 (0.66-1.25) mg/dL Est GFR (CKD-EPI)AfAm >90 (>60 ml/min/1.73 sqM) Est GFR (CKD-EPI)NonAf >90 (>60 ml/min/1.73 sqM) Glucose 148 H (74-99) mg/dL Lactic Ac Sepsis Rflx Plasma Lactic Acid Sherman (0.7-2.0) mmol/L Calcium 9.3 (8.4-10.2) mg/dL Total Bilirubin 1.1 (0.2-1.3) mg/dL AST 34 (17-59) U/L ALT 21 (4-49) U/L Alkaline Phosphatase 120 (38-126) U/L Total Protein 6.9 (6.3-8.2) g/dL Albumin 3.6 (3.5-5.0) g/dL Coronavirus (PCR) Not Detected (Not Detectd) 05/28/20 05/28/20 Range/Units 18:56 20:37 WBC (3.8-10.6) k/uL RBC (4.30-5.90) m/uL Hgb (13.0-17.5) gm/dL Hct (39.0-53.0) % MCV (80.0-100.0) fL MCH (25.0-35.0) pg MCHC (31.0-37.0) g/dL RDW (11.5-15.5) % Plt Count (150-450) k/uL MPV Neutrophils % % Lymphocytes % % Monocytes % % Eosinophils % % Basophils % % Neutrophils # (1.3-7.7) k/uL Lymphocytes # (1.0-4.8) k/uL Monocytes # (0-1.0) k/uL Eosinophils # (0-0.7) k/uL Basophils # (0-0.2) k/uL Hypochromasia Poikilocytosis Anisocytosis Sodium (137-145) mmol/L Potassium (3.5-5.1) mmol/L Chloride (98-107) mmol/L Carbon Dioxide (22-30) mmol/L Anion Gap mmol/L BUN (9-20) mg/dL Creatinine (0.66-1.25) mg/dL Est GFR (CKD-EPI)AfAm (>60 ml/min/1.73 sqM) Est GFR (CKD-EPI)NonAf (>60 ml/min/1.73 sqM) Glucose (74-99) mg/dL Lactic Ac Sepsis Rflx Y Plasma Lactic Acid Sherman 3.0 H* (0.7-2.0) mmol/L Calcium (8.4-10.2) mg/dL Total Bilirubin (0.2-1.3) mg/dL AST (17-59) U/L ALT (4-49) U/L Alkaline Phosphatase (38-126) U/L Total Protein (6.3-8.2) g/dL Albumin (3.5-5.0) g/dL Coronavirus (PCR) (Not Detectd) Disposition Clinical Impression: Nausea & vomiting, Ileus, Abdominal pain, S/P cholecystectomy Disposition: ADMITTED IP TO THIS HOSP Condition: Stable Is patient prescribed a controlled substance at d/c from ED?: No Decision to Admit Reason: Admit from EC Decision Date: 05/28/20 Decision Time: 22:31
[2020-05-28] MEDS ORDERED: PIPERACILLIN-TAZOBACTAM 3.375 GM in SODIUM CHLORIDE 0.9% 100 ML IVPB ONE (22:30)
[2020-05-28] MEDS ORDERED: ONDANSETRON 4 MG/2 ML VIAL IVP PRN (22:31)
[2020-05-28] MEDS ORDERED: NALOXONE 0.4 MG/ML 1 ML VIAL IV PRN (22:31)
[2020-05-29] MEDS: SODIUM CHLORIDE 0.9% 1,000 ML IV SCH ×3 (05:56→16:13)
[2020-05-29 06:35] LABS: Anisocytosis Slight; Basophils % (A) 0 %; Eosinophils # (A) 0.1 k/uL (0-0.7); Eosinophils % (A) 1 %; HCT 29.7 % (39.0-53.0); HGB 9.5 gm/dL (13.0-17.5); Hypochromasia Moderate; Lymphocytes # (A) 0.1 k/uL (1.0-4.8); Lymphocytes % (A) 1 %; MCHC 32.1 g/dL (31.0-37.0); MCV 96.5 fL (80.0-100.0); Macrocytosis Slight; Mean Platelet Volume 8.4; Monocytes # (A) 0.5 k/uL (0-1.0); Monocytes % (A) 4 %; Neutrophils # (A) 11.9 k/uL (1.3-7.7); Neutrophils % (A) 94 %; Platelet Count 235 k/uL (150-450); RBC 3.08 m/uL (4.30-5.90); WBC 12.7 k/uL (3.8-10.6)
[2020-05-29 06:46] LABS: African American GFR (CKD) >90 (>60 ml/min/1.73 sqM); Anion Gap 14 mmol/L; Blood Urea Nitrogen 22 mg/dL (9-20); Calcium 9.2 mg/dL (8.4-10.2); Carbon Dioxide 25 mmol/L (22-30); Chloride 104 mmol/L (98-107); Glucose 106 mg/dL (74-99); Non-African American GFR(CKD) 86 (>60 ml/min/1.73 sqM); Potassium 3.8 mmol/L (3.5-5.1); Sodium 143 mmol/L (137-145)
[2020-05-29] MEDS: PIPERACILLIN-TAZOBACTAM 3.375 GM in SODIUM CHLORIDE 0.9% 100 ML IVPB SCH ×2 (09:13→16:05)
[2020-05-29] MEDS: atenoloL 25 MG TAB PEG/G-TUBE SCH ×2 (09:14→21:26)
[2020-05-29 14:18] VITALS: BMI 25.3
--- NOTE | 2020-05-29 16:54 | P.GSCN ---
History of Present Illness Consult date: 05/29/20 History of present illness: Patient returns for 5th re-admission in 4 months, 3rd re-admission in 30 days. He is status post open cholecystectomy, 1 week ago. He reports he was doing well at the time of discharge then his bowels would not work. He could not tolerate tube feeds. He reports his pre-existing abdominal pain prior to surgery is back. Per discussion with nurse, patient cannot tolerate any medications down his G- tube or pills. ABDOMEN: No peritonitis. Dressing intact. Tender along epigastrium. STUDIES: CT of the abdomen and pelvis reviewed with fluid collection and post-op changes at the hepatic fossa to be expected. Air throughout colon and small bowel. This is my independent interpretation. PLAN: 1. Correction of electrolyte dyscrasias advised. 2. Will repeat labs to include CBC, CMP, and Magnesium Past Medical History Past Medical History: Cancer, GI Bleed, Hyperlipidemia, Osteoarthritis (OA) Additional Past Medical History / Comment(s): Pt recently admitted to [facility] on 02/01 with abdominal pain, nausea/vomiting/fevers and was tx with antibiotics. 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 Past Anesthesia/Blood Transfusion Reactions: No Reported Reaction Past Psychological History: Anxiety, Depression Additional Psychological History / Comment(s): Pt resides with his spouse and 16 yo granddaughter. He uses no assistive device. He drives. He has a peg tube. Smoking Status: Former smoker Past Alcohol Use History: None Reported Additional Past Alcohol Use History / Comment(s): Used to drink quite a bit of beer, quit 2006. Pt started smoking in 1968 and quit in 2017 Past Drug Use History: None Reported - Past Family History Father Family Medical History: Cancer Additional Family Medical History / Comment(s): prostate cancer that spread to the brain Mother Family Medical History: Cancer Additional Family Medical History / Comment(s): ovarian cancer Sister(s) Family Medical History: Cancer Additional Family Medical History / Comment(s): breast cancer Medications and Allergies Home Medications Medication Instructions Recorded Confirmed Type PARoxetine HCL [Paxil] 10 mg PEG/G-TUBE HS 08/28/19 05/28/20 History Nivolumab [Opdivo] 100 mg IV QMONTHLY 10/27/19 05/28/20 History ALPRAZolam [Xanax] 0.5 mg PEG/G-TUBE BID 02/16/20 05/28/20 History Aspirin 81 mg PEG/G-TUBE DAILY 03/02/20 05/28/20 History Atorvastatin [Lipitor] 10 mg PEG/G-TUBE HS 03/02/20 05/28/20 History Esomeprazole Magnesium 20 mg PEG/G-TUBE DAILY 05/20/20 05/28/20 History Fluconazole [Diflucan] 150 mg PEG/G-TUBE Q72H 05/20/20 05/28/20 History Nystatin 100,000 Unit/ml Susp 500,000 units PO QID 05/20/20 05/28/20 History [Mycostatin Oral Susp] Doxycycline [Vibramycin] 100 mg PEG/G-TUBE BID 05/28/20 05/28/20 History HYDROcodone/APAP 5-325MG [[place] 1 tab PEG/G-TUBE Q6HR PRN 05/28/20 05/28/20 History 5-325] atenoloL [Tenormin] 12.5 mg PEG/G-TUBE BID 05/28/20 05/28/20 History Allergies Allergy/AdvReac Type Severity Reaction Status Date / Time adhesive tape Allergy Rash/Hives Verified 05/28/20 21:25 latex Allergy Rash/Hives Verified 05/28/20 21:25 Surgical - Exam Vital Signs Temp Pulse Resp BP Pulse Ox 98.4 F 94 24 131/80 96 05/28/20 18:37 05/28/20 18:37 05/28/20 18:37 05/28/20 18:37 05/28/20 18:37 Results - Labs 05/29/20 05:30 05/29/20 05:30 Abnormal Lab Results - Last 24 Hours (Table) 05/28/20 05/28/20 05/28/20 Range/Units 18:56 18:56 18:56 WBC 12.6 H (3.8-10.6) k/uL RBC 3.14 L (4.30-5.90) m/uL Hgb 9.8 L (13.0-17.5) gm/dL Hct 29.3 L (39.0-53.0) % RDW 18.2 H (11.5-15.5) % Neutrophils # 11.7 H (1.3-7.7) k/uL Lymphocytes # 0.2 L (1.0-4.8) k/uL BUN 21 H (9-20) mg/dL Glucose 148 H (74-99) mg/dL Plasma Lactic Acid Sherman 3.0 H* (0.7-2.0) mmol/L 05/29/20 05/29/20 Range/Units 05:30 05:30 WBC 12.7 H (3.8-10.6) k/uL RBC 3.08 L (4.30-5.90) m/uL Hgb 9.5 L (13.0-17.5) gm/dL Hct 29.7 L (39.0-53.0) % RDW 18.0 H (11.5-15.5) % Neutrophils # 11.9 H (1.3-7.7) k/uL Lymphocytes # 0.1 L (1.0-4.8) k/uL BUN 22 H (9-20) mg/dL Glucose 106 H (74-99) mg/dL Plasma Lactic Acid Sherman (0.7-2.0) mmol/L Diabetes panel 05/28/20 05/29/20 Range/Units 18:56 05:30 Sodium 140 143 (137-145) mmol/L Potassium 3.7 3.8 (3.5-5.1) mmol/L Chloride 101 104 (98-107) mmol/L Carbon Dioxide 24 25 (22-30) mmol/L BUN 21 H 22 H (9-20) mg/dL Creatinine 0.86 0.93 (0.66-1.25) mg/dL Glucose 148 H 106 H (74-99) mg/dL Calcium 9.3 9.2 (8.4-10.2) mg/dL AST 34 (17-59) U/L ALT 21 (4-49) U/L Alkaline Phosphatase 120 (38-126) U/L Total Protein 6.9 (6.3-8.2) g/dL Albumin 3.6 (3.5-5.0) g/dL Calcium panel 05/28/20 05/29/20 Range/Units 18:56 05:30 Calcium 9.3 9.2 (8.4-10.2) mg/dL Albumin 3.6 (3.5-5.0) g/dL Pituitary panel 05/28/20 05/29/20 Range/Units 18:56 05:30 Sodium 140 143 (137-145) mmol/L Potassium 3.7 3.8 (3.5-5.1) mmol/L Chloride 101 104 (98-107) mmol/L Carbon Dioxide 24 25 (22-30) mmol/L BUN 21 H 22 H (9-20) mg/dL Creatinine 0.86 0.93 (0.66-1.25) mg/dL Glucose 148 H 106 H (74-99) mg/dL Calcium 9.3 9.2 (8.4-10.2) mg/dL Adrenal panel 05/28/20 05/29/20 Range/Units 18:56 05:30 Sodium 140 143 (137-145) mmol/L Potassium 3.7 3.8 (3.5-5.1) mmol/L Chloride 101 104 (98-107) mmol/L Carbon Dioxide 24 25 (22-30) mmol/L BUN 21 H 22 H (9-20) mg/dL Creatinine 0.86 0.93 (0.66-1.25) mg/dL Glucose 148 H 106 H (74-99) mg/dL Calcium 9.3 9.2 (8.4-10.2) mg/dL Total Bilirubin 1.1 (0.2-1.3) mg/dL AST 34 (17-59) U/L ALT 21 (4-49) U/L Alkaline Phosphatase 120 (38-126) U/L Total Protein 6.9 (6.3-8.2) g/dL Albumin 3.6 (3.5-5.0) g/dL
[2020-05-29] MEDS ORDERED: FLUCONAZOLE 150 MG TAB PEG/G-TUBE SCH (17:00)
--- NOTE | 2020-05-29 17:37 | HP ---
HISTORY AND PHYSICAL DATE OF SERVICE: 05/28/2020 HISTORY OF PRESENT ILLNESS: 65-year-old white male with a history of esophageal cancer, ischemic colitis, colostomy reversal. He has nausea, vomiting, abdominal pain since his gallbladder surgery. CT scan of the abdomen shows possible abscess or fluid collection around the gallbladder area. He is also having trouble with his PEG tube, unable to get enough feeding in there. Something blocking the feeding tube, unable to get his medications through there. He has esophageal dysphagia, unable to swallow orally secondary to radiation from esophageal cancer. MEDICATIONS: Home medicines: Paxil 10 mg PEG tube, Optiva 100 mg IV monthly, Xanax 0.5 PEG tube b.i.d., aspirin 81 mg daily, PEG tube, Lipitor 10 mg daily, PEG tube, Lexapro 20 mg daily, PEG tube, Diflucan 150 mg daily, PEG tube, nystatin oral solution 500,000 q.i.d. He has been getting doxycycline 100 mg b.i.d. for recent community-acquired pneumonia thru his PEG tube. [place] 5/325 every 6 hours p.r.n., PEG tube, and Tenormin 12.5 mg b.i.d. for PEG tube. ALLERGIES: ALLERGIES ARE ADHESIVE TAPE AND LASIX. REVIEW OF SYMPTOMS: 14-point review of systems otherwise negative. PAST MEDICAL HISTORY: Esophageal cancer, GI bleeding, dyslipidemia, osteoarthritis, cholecystitis status post surgery, esophageal invasive squamous cell cancer, metastases to the bone, liver, multiple treatments in the past, bowel resection, cholecystectomies. He had open gallbladder surgery secondary to multiple adhesions. FAMILY HISTORY: Father prostate cancer. Mother with ovarian cancer. Sister with breast cancer. PHYSICAL EXAMINATION: Temperature 98.4, pulse 87 to 94, respiratory 18 to 24, blood pressure 130s/75-80, O2 96 to 97. CARDIOVASCULAR S1-S2. LUNGS transmitted upper sounds. GI shows incision with monae, looks clean, dry and intact with no fluctuance or mass or tenderness. LABORATORY DATA: White count is 12.6, hemoglobin is 9.3, BUN 21, creatinine 0.86. ASSESSMENT: 1. Nausea, vomiting. 2. Ileus. 3. Abdominal pain. 4. Abnormal CAT scan. 5. Possible abscess around the gallbladder area. 6. Rule out PEG tube obstruction. 7. Status post cholecystectomy. 8. History of esophageal cancer. 9. Esophageal dysmobility. 10.Prognosis guarded. Please see further orders. MMODL / IJN: [id number] /
[2020-05-29] MEDS: NYSTATIN 100,000 UNIT/ML SUSP 500,000 UNIT/5 ML CUP PO SCH ×2 (18:00→21:26)
--- NOTE | 2020-05-29 19:48 | CONS ---
CONSULTATION DATE OF SERVICE: May 29, 2020. REASON FOR CONSULTATION: Post cholecystectomy, possible abscess. 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 The patient was recently admitted at this facility for acute cholecystitis and the patient is status post open cholecystectomy on 05/20/2020. Patient was discharged home on 05/23/2020. The patient now presented back to the hospital yesterday for evaluation of abdominal pain and pain has been getting worse for the last 2-3 days. Pain has been mostly in the right upper quadrant area. Described the pain to be more of a sharp pain nature, intensity almost 10 out of 10 with associated nausea but no vomiting. The patient denies any high-grade fever. Did have some chills. No diarrhea. With these symptoms, the patient was evaluated by the ER physician. On arrival to the ER, the patient was afebrile. However, did have a low-grade fever of 99.9 this morning. The patient did have white count of 12.6 with left shift. Did have elevated lactic acid. El PCR was negative. Patient did have a CT of abdomen and pelvis completed which was read as multiple dilated small bowel loops suggestive of ileus. Probably complex air-fluid in the right upper quadrant cause for the abscess, bile leak not excluded. Area was measured as 6.5 x 3.2 cm. The patient was admitted to the hospital. General surgery and Infectious disease was consulted for further management. REVIEW OF SYSTEMS: Positive points have been mentioned in HPI. Rest of the systems are negative. PAST MEDICAL HISTORY: Poorly differentiated metastatic carcinoma of oropharyngeal area, osteomyelitis and pharyngeal abscess and cholecystitis. PAST SURGICAL HISTORY: History of tracheostomy, PEG tube placement, bowel resection, and recent open cholecystectomy. SOCIAL HISTORY: Remote history of smoking. No drinking or drug use. FAMILY HISTORY: Mother history of lung cancer. Father history of prostate cancer. ALLERGIES: TO LATEX and ADHESIVE TAPE. MEDICATIONS: The patient is currently on [place], Xanax, aspirin, Tenormin, Lipitor, fluconazole, Diflucan, Zofran, Protonix, Paxil, and Zosyn along with IV fluid. PHYSICAL EXAMINATION: Blood pressure 113/66, pulse of 90, temperature 99.9, he is 93% on room air. General description: The patient is an elderly male lying in bed in no distress. No tachypnea or accessory muscles of respiration use. HEENT examination: Pallor. No scleral icterus. Oral mucous membranes dry. NECK: Trachea central. No thyromegaly. LUNGS unlabored breathing. Clear to auscultation anteriorly. No wheeze or crackles. HEART: S1, S2. Regular rate and rhythm. ABDOMEN is soft, mildly distended. Incision is currently intact. No swelling. No redness. No drainage. EXTREMITIES: No edema of the feet. SKIN examination: No rash or mass palpable. NEUROLOGICAL: Patient awake, alert and oriented times three. Mood and affect normal. LABS: Hemoglobin is 9.5, white count 12.7, BUN of 22, creatinine 0.93. CT report mentioned above. DIAGNOSTIC IMPRESSION AND PLAN: Patient admitted to the hospital with abdominal pain, did have a fever, elevated white count with an area of collection on the CT concerning for possible postop seroma versus abscess not entirely excluded and we will need to cover for enteric gram-negative, both aerobes and anaerobes. PLAN: 1. The patient will benefit from CT guided drainage of this fluid, which should be sent for culture both aerobic, anaerobes. 2. Keep the patient on Zosyn 3.375 g while workup is completed. 3. We will follow on clinical condition and further adjust medication if needed. Thank you for this consultation. We will follow this patient along with you. MMODL / IJN: [id number] /
[2020-05-29] MEDS: PARoxetine 10 MG TAB PEG/G-TUBE SCH (21:26)
[2020-05-29] MEDS: DOXYCYCLINE 100 MG CAP PEG/G-TUBE SCH (21:26)
[2020-05-29] MEDS: ATORVASTATIN 10 MG TAB PEG/G-TUBE SCH (21:27)
[2020-05-29] MEDS: ALPRAZolam 0.5 MG TAB PEG/G-TUBE SCH (21:37)
[2020-05-29] MEDS: HYDROcodone/APAP 5-325MG 1 EACH TAB PEG/G-TUBE PRN (21:38)
[2020-05-30] MEDS: PIPERACILLIN-TAZOBACTAM 3.375 GM in SODIUM CHLORIDE 0.9% 100 ML IVPB SCH ×4 (00:32→23:30)
[2020-05-30] MEDS: SODIUM CHLORIDE 0.9% 1,000 ML IV SCH ×4 (00:33→22:48)
[2020-05-30] MEDS: HYDROcodone/APAP 5-325MG 1 EACH TAB PEG/G-TUBE PRN (04:54)
[2020-05-30 05:41] LABS: Anisocytosis Slight; Basophils % (A) 0 %; Eosinophils # (A) 0.2 k/uL (0-0.7); Eosinophils % (A) 2 %; HCT 27.3 % (39.0-53.0); HGB 8.8 gm/dL (13.0-17.5); Hypochromasia Marked; Lymphocytes # (A) 0.2 k/uL (1.0-4.8); Lymphocytes % (A) 2 %; MCH 31.5 pg (25.0-35.0); MCHC 32.3 g/dL (31.0-37.0); MCV 97.6 fL (80.0-100.0); Macrocytosis Slight; Mean Platelet Volume 8.5; Monocytes # (A) 0.3 k/uL (0-1.0); Monocytes % (A) 4 %; Neutrophils % (A) 90 %; Platelet Count 192 k/uL (150-450); RDW 17.8 % (11.5-15.5); WBC 7.8 k/uL (3.8-10.6)
[2020-05-30] MEDS: atenoloL 25 MG TAB PEG/G-TUBE SCH ×2 (08:40→20:13)
[2020-05-30] MEDS: ASPIRIN 81 MG PEG/G-TUBE SCH (08:41)
[2020-05-30] MEDS: PANTOPRAZOLE SODIUM 40 MG GRANULE PKT PEG/G-TUBE SCH (08:42)
[2020-05-30] MEDS: DOXYCYCLINE 100 MG CAP PEG/G-TUBE SCH ×2 (08:43→20:13)
[2020-05-30] MEDS: ALPRAZolam 0.5 MG TAB PEG/G-TUBE SCH ×2 (08:43→20:13)
[2020-05-30] MEDS: NYSTATIN 100,000 UNIT/ML SUSP 500,000 UNIT/5 ML CUP PO SCH ×4 (08:43→20:13)
[2020-05-30 09:10] LABS: African American GFR (CKD) 108.6 (60.0-200.0); Albumin 3.3 g/dL (3.80-4.90); Albumin/Globulin Ratio 1.43 (1.60-3.17); Anion Gap 8.2 mmol/L (4.00-12.00); BUN/Creat Ratio 26.25 Ratio (12.00-20.00); Calcium 8.4 mg/dL (8.7-10.3); Carbon Dioxide 22.8 mmol/L (21.6-31.8); Globulin 2.3 g/dL (1.6-3.3); Magnesium 1.8 mg/dL (1.5-2.4); Non-African American GFR(CKD) 93.7 (60.0-200.0); Potassium 3.8 mmol/L (3.5-5.5); Total Bilirubin 0.9 mg/dL (0.2-1.2); Total Protein 5.6 g/dL (6.2-8.2)
--- NOTE | 2020-05-30 13:09 | CONS ---
CONSULTATION DATE OF SERVICE: 05/30/2020 REASON FOR CONSULTATION: Discomfort around the PEG tube. HISTORY OF PRESENT ILLNESS: The patient is a 65-year-old pleasant white male with history of oropharyngeal cancer for which he is status post chemo radiation therapy and a PEG tube placement about 2 years ago. The PEG tube was recently changed with balloon replacement tube about 3 weeks ago. He recently had an episode of acute cholecystitis and underwent open cholecystectomy by Dr. Zaragoza on May 20, 2020. The patient was discharged home 3 days later. Since then he has been having some epigastric pain as well as right upper quadrant abdominal pain, but progressively got worse and yesterday it became very intense. Came to the emergency room and subsequently admitted to the hospital for further evaluation. He did have a CT of the abdomen and pelvis done which showed multiple dilated small bowel loops suggestive of an ileus and possibly of complex air fluid in the right upper quadrant measuring 6.5 x 3.2 cm in size. Hence Dr. Smith has been consulted and patient is on broad-spectrum antibiotics. GI has been consulted because of pain with tube feeds. He denies any fever, chills, or night sweats. He reports no nausea or vomiting. PAST MEDICAL HISTORY: Significant for head and neck CA, recent cholecystitis, status post gallbladder surgery about a week ago, history of hypertension, hyperlipidemia, gastroesophageal reflux disease, anxiety, depression. MEDICATIONS: Medications at home Tenormin, [place], Vibramycin, Nexium, Lipitor, aspirin, Opdivo, Diflucan, Paxil, nystatin, and Xanax. ALLERGIES: LATEX AND ADHESIVE TAPE. SOCIAL HISTORY: Remote history of smoking. No alcohol use. FAMILY HISTORY: Unremarkable. PAST SURGICAL HISTORY: Cholecystectomy, EGD with PEG tube placement 3 years ago, lithotripsy, bowel resection with colostomy followed by reversal. REVIEW OF SYSTEMS: CARDIOPULMONARY: No chest pain or shortness of breath. GENITOURINARY: No dysuria or hematuria. MUSCULOSKELETAL: Unremarkable. SKIN: Unremarkable. ENDOCRINE: Unremarkable. PSYCHIATRIC: Unremarkable. GI: Severe dysphagia. NEUROLOGY: Unremarkable. ENT/VISION: Unremarkable. CONSTITUTIONAL: No recent weight loss. No fevers, chills, night sweats. PHYSICAL EXAMINATION: VITAL SIGNS: Blood pressure 128/74, pulse rate 87, temperature 97.7. HEENT: Examination unremarkable. Conjunctivae are pink. Sclerae anicteric. Oral cavity no lesions. NECK: No JVD or lymph node enlargement. CHEST: Clear to auscultation. HEART: Regular rate and rhythm. ABDOMEN: Soft, it was slightly distended. There was tenderness in the right upper quadrant, as well as in the epigastric area. PEG tube appears to be in good position. EXTREMITIES: No pedal edema. SKIN: No rashes. NEURO: He is alert and oriented x3. No focal deficits. LAB: WBC at the time of admission to the hospital was 12.6, hemoglobin 9.8, platelets 211. BUN and creatinine are within normal limits. Basic metabolic panel is normal. Lactic acid was 3 it was down to 1.7 yesterday. Labs from today WBC is down to 7.8, hemoglobin 8.8, platelets normal. Basic metabolic panel is within normal limits. Coronavirus PCR is negative. CT of the abdomen and pelvis done in the emergency room did show multiple dilated loops of small bowel, complex air and fluid collection in the right upper quadrant at the gallbladder fossa and possibility of an abscess versus bile leak could not be excluded. The patient presently is on broad-spectrum antibiotics and ID following the patient closely. ASSESSMENT: 1. Discomfort with PEG tube feeds probably related to recent cholecystectomy and abnormal findings on the CT scan. The PEG tube itself is patent and there is no evidence of obstruction in the PEG tubing. 2. History of head and neck cancer, status post chemo radiation therapy in the past. 3. Oropharyngeal dysphagia. 4. Leukocytosis which is resolving. RECOMMENDATIONS: 1. Continue with broad-spectrum antibiotics. 2. We will continue to hold the PEG tube feeds because of the small bowel ileus. 3. Continue to monitor labs closely. 4. No need for any PEG tube replacement at the present time. 5. We will follow with you closely. Thank you for this consultation. MMODL / IJN: [id number] /
--- NOTE | 2020-05-30 15:36 | P.PN ---
Subjective Progress Note Date: 05/30/20 HPI: He is resting comfortably in bed. No new complaints or events. He has been seen by GI regarding his G-tube. ABDOMEN: No peritonitis. LABS: WBC normal. ASSESSMENT: 1. Ileus PLAN: 1. Continue IV antibiotics. 2. Adjust pain medications with scheduled non-narcotics. Objective - Vital Signs Vital signs: Vital Signs Temp 97.8 F 05/30/20 11:13 Pulse 78 05/30/20 11:13 Resp 18 05/30/20 11:13 BP 104/71 05/30/20 11:13 Pulse Ox 96 05/30/20 11:13 Intake & Output 05/29/20 05/30/20 05/30/20 18:59 06:59 18:59 Intake Total 1760 Balance 1760 Weight 71.214 kg Intake: Intake, IV Titration 1760 Amount Piperacillin-Tazobactam 3 200 .375 gm In Sodium Chloride 0.9% 100 ml @ 25 mls/hr IVPB Q8H [facility] Rx#: [id number] Sodium Chloride 0.9% 1, 1560 000 ml @ 130 mls/hr IV . Q7H42M [facility] Rx#:[id number] Other: Voiding Method Bedside Commode # Bowel Movements 2 - Labs CBC & Chem 7: 05/30/20 04:44 05/30/20 04:44 Labs: Abnormal Lab Results - Last 24 Hours (Table) 05/30/20 05/30/20 Range/Units 04:44 04:44 RBC 2.80 L (4.30-5.90) m/uL Hgb 8.8 L (13.0-17.5) gm/dL Hct 27.3 L (39.0-53.0) % RDW 17.8 H (11.5-15.5) % Lymphocytes # 0.2 L (1.0-4.8) k/uL Chloride 113 H (96-109) mmol/L BUN/Creatinine Ratio 26.25 H (12.00-20.00) Ratio Calcium 8.4 L (8.7-10.3) mg/dL AST 43 H (14-35) U/L Total Protein 5.6 L (6.2-8.2) g/dL Albumin 3.30 L (3.80-4.90) g/dL Albumin/Globulin Ratio 1.43 L (1.60-3.17) g/dL Microbiology - Last 24 Hours (Table) 05/29/20 05:30 Blood Culture - Preliminary Blood No Growth after 24 hours
--- NOTE | 2020-05-30 18:33 | PN ---
PROGRESS NOTE DATE OF SERVICE: 05/30/2020. REASON FOR FOLLOW UP: Abnormal fluid collection, question of abscess. INTERVAL HISTORY: Patient is afebrile. The patient is feeling slightly better. Abdominal pain has slightly decreased. No nausea, vomiting. No chest pain, shortness of breath or cough. No diarrhea. PHYSICAL EXAMINATION: Blood pressure 104/71, pulse of 78. Temperature is 97.8. He is 96% on room air. General description: The patient is an elderly male lying in bed in no distress. Respiratory system: Unlabored breathing, clear to auscultation anteriorly. Heart S1, S2. Regular rate and rhythm. Abdomen: Soft. No tenderness. LABS: Hemoglobin 8.8, white count 7.8. BUN of 21, creatinine 0.8. DIAGNOSTIC IMPRESSION AND PLAN: Patient with abdominal pain, fever, elevated white count with right upper quadrant fluid collection, status post cholecystectomy, possible abscess. The patient to continue Zosyn. Recommend a CT-guided drainage of this fluid which should be sent for cultures. Continue supportive care. MMODL / IJN: [id number] /
[2020-05-30] MEDS: MORPHINE SULFATE 4 MG/ML SYRINGE IV PRN (19:16)
[2020-05-30] MEDS: ATORVASTATIN 10 MG TAB PEG/G-TUBE SCH (20:13)
[2020-05-30] MEDS: PARoxetine 10 MG TAB PEG/G-TUBE SCH (20:13)
[2020-05-31] MEDS: SODIUM CHLORIDE 0.9% 1,000 ML IV SCH ×2 (05:32→15:47)
[2020-05-31] MEDS: NYSTATIN 100,000 UNIT/ML SUSP 500,000 UNIT/5 ML CUP PO SCH ×4 (08:11→22:18)
[2020-05-31] MEDS: ALPRAZolam 0.5 MG TAB PEG/G-TUBE SCH ×2 (08:12→21:16)
[2020-05-31] MEDS: PANTOPRAZOLE SODIUM 40 MG GRANULE PKT PEG/G-TUBE SCH (08:12)
[2020-05-31] MEDS: atenoloL 25 MG TAB PEG/G-TUBE SCH ×2 (08:12→21:16)
[2020-05-31] MEDS: ASPIRIN 81 MG PEG/G-TUBE SCH (08:12)
[2020-05-31] MEDS: PIPERACILLIN-TAZOBACTAM 3.375 GM in SODIUM CHLORIDE 0.9% 100 ML IVPB SCH ×3 (08:12→23:39)
[2020-05-31] MEDS: HYDROcodone/APAP 5-325MG 1 EACH TAB PEG/G-TUBE PRN ×2 (08:16→21:33)
--- NOTE | 2020-05-31 11:13 | PN ---
PROGRESS NOTE DATE OF SERVICE: 05/30/2020. He is resting comfortably. He said he is going to get kind of abscess drained in his belly. He has benign abdomen. His white count is normal. He has an ileus. He is on IV antibiotics. His PEG tube is going to be adjusted per GI. CARDIOVASCULAR: S1, S2. LUNGS: Clear. PSYCH: Fair mood and affect. NEUROLOGIC: Alert and oriented x3. OPHTHALMOLOGIC: Pupils equal, round, reactive to light and accommodation. ASSESSMENT: 1. Abnormal CT scan of the abdomen. 2. Abdominal pain. 3. Fever. 4. Elevated white count. 5. Right upper quadrant fluid collection. 6. Cholecystectomy, possible abscess. Continue on Zosyn. CT-guided drainage of fluid should be sent for cultures. Awaiting on that to be done. Prognosis guarded. MMODL / IJN: [id number] /
--- NOTE | 2020-05-31 13:09 | P.PN ---
Subjective Progress Note Date: 05/31/20 CHIEF COMPLAINT: Abdominal pain HISTORY OF PRESENT ILLNESS: Surgical service is following in regards patient's abdominal pain. He had evidence of ileus and possible abscess with fluid collection in the right upper quadrant. Measuring 6.5 x 3.2 cm. He is currently on IV Zosyn. Followed by infectious disease. Patient is nothing by mouth and tube feeds are on hold. Patient reports that his pain is improving. He had 2 loose bowel movements yesterday and is passing gas. He has been having nausea. Afebrile. WBC from yesterday 7.8 PHYSICAL EXAM: VITAL SIGNS: Reviewed. GENERAL: Well-developed in no acute distress. HEENT: No sclera icterus. Extraocular movements grossly intact. Moist buccal mucosa. Head is atraumatic, normocephalic. ABDOMEN: Soft. Nondistended. Mild tenderness in the right upper quadrant. Incision site clean dry and intact. NEUROLOGIC: Alert and oriented. Cranial nerves II through XII grossly intact. ASSESSMENT: 1. Abdominal pain 2. Ileus 3. Right upper quadrant fluid collection is likely a seroma and doubt that it would be an abscess 4. Status post recent open cholecystectomy 05/20/20 PLAN: -Continue to observe. No plans for any surgical intervention -Okay to resume tube feedings -Continue antibiotics per ID -Continue pain medication as needed -Continue supportive care Physician Entertainment Manager note has been reviewed by physician. Signing provider agrees with the documented findings, assessment, and plan of care. Objective - Vital Signs Vital signs: Vital Signs Temp 97.8 F 05/31/20 12:21 Pulse 67 05/31/20 12:21 Resp 20 05/31/20 12:21 BP 142/84 05/31/20 12:21 Pulse Ox 98 05/31/20 12:21 Intake & Output 05/30/20 05/31/20 05/31/20 18:59 06:59 18:59 Intake Total 1760 1560 Output Total 600 Balance 1160 1560 Weight 71.214 kg Intake: Intake, IV Titration 1760 1560 Amount Piperacillin-Tazobactam 3 200 .375 gm In Sodium Chloride 0.9% 100 ml @ 25 mls/hr IVPB Q8H [facility] Rx#: [id number] Sodium Chloride 0.9% 1, 1560 1560 000 ml @ 130 mls/hr IV . Q7H42M [facility] Rx#:[id number] Oral 0 Output: Urine 600 Other: Voiding Method Bedside Commode Bedside Commode Bedside Commode # Voids 2 - Labs CBC & Chem 7: 05/30/20 04:44 05/30/20 04:44 Labs: Microbiology - Last 24 Hours (Table) 05/29/20 05:30 Blood Culture - Preliminary Blood No Growth after 48 hours
--- NOTE | 2020-05-31 13:32 | P.PN ---
Subjective Progress Note Date: 05/31/20 Principal diagnosis: Abdominal pain A pleasant 65-year-old male with a history of oropharyngeal cancer for which he is status post chemoradiation therapy and a PEG tube placement about 2 years ago. The PEG tube recently changed with balloon replacement tube about 3 weeks ago. He recently had an episode of acute cholecystitis and underwent open cholecystectomy by Dr. Zaragoza on 05/20/2020. The patient started having some epigastric pain about 3 days after being discharged as well as a right upper quadrant pain is progressively got worse and came to the emergency department for further evaluation. On CT of the abdomen and pelvis showed multiple dilated small bowel loops suggestive of an ileus and possibly of complex air-fluid in the right upper quadrant measuring 6.5 x 3.2 cm in size. Tetracycline and surgery on consult. GI was consulted because of pain with tube feedings. His tube feedings have been discontinued. He states he had 2 bowel movements today, abdominal pain is improved. He denies any nausea or vomiting. He is scheduled for drainage of the fluid pocket today. Objective - Vital Signs Vital signs: Vital Signs Temp 98.1 F 05/31/20 04:40 Pulse 74 05/31/20 04:40 Resp 20 05/31/20 04:40 BP 136/73 05/31/20 04:40 Pulse Ox 95 05/31/20 04:40 Intake & Output 05/30/20 05/31/20 05/31/20 18:59 06:59 18:59 Intake Total 1760 1560 Output Total 600 Balance 1160 1560 Intake: Intake, IV Titration 1760 1560 Amount Piperacillin-Tazobactam 3 200 .375 gm In Sodium Chloride 0.9% 100 ml @ 25 mls/hr IVPB Q8H [facility] Rx#: [id number] Sodium Chloride 0.9% 1, 1560 1560 000 ml @ 130 mls/hr IV . Q7H42M [facility] Rx#:[id number] Oral 0 Output: Urine 600 Other: Voiding Method Bedside Commode Bedside Commode Bedside Commode # Voids 2 - Exam General appearance: The patient is alert, oriented, appears in no acute distress. HET: Head is normocephalic and atraumatic. Conjunctiva pink. Sclera anicteric. Neck: Supple without lymphadenopathy. Abdomen: Soft, mild epigastric tenderness, PEG tube site clean dry and intact, nondistended with bowel sounds. Incision site clean dry and intact. No guarding or rigidity. Extremities: Normal skin color and turgor. No pedal edema Skin: No rashes, no jaundice Neurological: No focal deficits. Alert and oriented 3. - Labs CBC & Chem 7: 05/30/20 04:44 05/30/20 04:44 Labs: Abnormal Lab Results - Last 24 Hours (Table) 05/30/20 Range/Units 04:44 Chloride 113 H (96-109) mmol/L BUN/Creatinine Ratio 26.25 H (12.00-20.00) Ratio Calcium 8.4 L (8.7-10.3) mg/dL AST 43 H (14-35) U/L Total Protein 5.6 L (6.2-8.2) g/dL Albumin 3.30 L (3.80-4.90) g/dL Albumin/Globulin Ratio 1.43 L (1.60-3.17) g/dL Microbiology - Last 24 Hours (Table) 05/29/20 05:30 Blood Culture - Preliminary Blood No Growth after 48 hours Assessment and Plan (1) Abdominal pain Narrative/Plan: The 65-year-old male patient who was complaining of discomfort with PEG tube fe edings probably related to recent cholecystectomy and abnormal finding on the computed tomography scan. The PEG tube itself is patent and there is no evidence of obstruction and the PEG tubing. Current Visit: Yes Status: Acute Priority: High Code(s): R10.9 - UNSPECIFIED ABDOMINAL PAIN SNOMED Code(s): 51893452 (2) History of head and neck cancer Narrative/Plan: Status post chemoradiation therapy in the past Current Visit: Yes Status: Acute Code(s): Z85.89 - PERSONAL HISTORY OF MALIGNANT NEOPLASM OF ORGANS AND SYSTEMS SNOMED Code(s): 864995616 Plan: 1. Continue symptomatic supportive care 2. Continue with broad-spectrum antibiotics 3. Patient may begin tube feedings at 20 mL per hour after drainage of fluid pocket 4. No need for any PEG tube replacement at the present time Thank you for this consultation, we will continue to follow Dr. Lesia Medina I agree with the dictator's note, documented as a scribe by Lindsey Carvajal.
[2020-05-31 13:41] LABS: Prothrombin Time 10.3 sec (9.0-12.0)
[2020-05-31] MEDS: MORPHINE SULFATE 4 MG/ML SYRINGE IV PRN (14:46)
--- NOTE | 2020-05-31 16:34 | PN ---
PROGRESS NOTE DATE OF SERVICE: 05/31/2020. REASON FOR FOLLOWUP: Right upper quadrant collection, question of possible seroma versus abscess. INTERVAL HISTORY: The patient is currently afebrile. Patient is breathing comfortably. The patient's pain to the right upper quadrant has slightly decreased. Patient denies having any chest pain or shortness of breath or cough. No diarrhea. PHYSICAL EXAMINATION: Blood pressure 142/84, pulse of 67, temperature is 97.8. He is 98% on room air. General description is an elderly male lying in bed in no distress. RESPIRATORY SYSTEM: Unlabored breathing, clear to auscultation anteriorly. HEART: S1, S2. Regular rate and rhythm. ABDOMEN: Soft, no tenderness. LABS: White count normal. Blood cultures have been negative. DIAGNOSTIC IMPRESSION AND PLAN: Patient with admission to the hospital with right upper quadrant abdominal pain. Did have a fever, elevated white count with concern for possible abscess to the gallbladder fossa area. I did review the CT with the radiologist and recommend and asked for the CT-guided aspirate of this area; however, subsequently got a call from Interventional Radiology and thought more likely postop seroma rather than an abscess and considered to be high risk for any surgical or CT-guided drainage. We will hold on the drainage. Continue with Zosyn. Repeat his inflammatory markers tomorrow. Continue supportive care. MMODL / IJN: [id number] /
--- NOTE | 2020-05-31 20:32 | PN ---
PROGRESS NOTE He apparently has taken some oral feedings or taken tube feeding, which he does at home, as there is a shortage on apparent tubes to replace his tube. He has a seroma versus abscess, right upper quadrant. Radiology thought it was a postoperative seroma rather than an abscess and they do not want to do the drainage. Continue with Zosyn. Repeat inflammatory markers and possible discharge home soon once his PEG tube obstruction is fixed by GI. MMODL / IJN: [id number] /
[2020-05-31] MEDS: ATORVASTATIN 10 MG TAB PEG/G-TUBE SCH (21:17)
[2020-05-31] MEDS: PARoxetine 10 MG TAB PEG/G-TUBE SCH (21:17)
[2020-06-01] MEDS: SODIUM CHLORIDE 0.9% 1,000 ML IV SCH (04:41)
[2020-06-01 07:21] LABS: Anisocytosis Slight; Basophils % (A) 0 %; Eosinophils # (A) 0.2 k/uL (0-0.7); Eosinophils % (A) 6 %; HCT 23.5 % (39.0-53.0); HGB 7.4 gm/dL (13.0-17.5); Hypochromasia Moderate; Lymphocytes # (A) 0.2 k/uL (1.0-4.8); Lymphocytes % (A) 5 %; MCH 30.1 pg (25.0-35.0); MCHC 31.3 g/dL (31.0-37.0); MCV 95.9 fL (80.0-100.0); Macrocytosis Slight; Mean Platelet Volume 8.9; Monocytes # (A) 0.2 k/uL (0-1.0); Monocytes % (A) 6 %; Neutrophils # (A) 2.7 k/uL (1.3-7.7); Neutrophils % (A) 82 %; Platelet Count 204 k/uL (150-450); Poikilocytosis Slight; RBC 2.45 m/uL (4.30-5.90); RDW 18.4 % (11.5-15.5); WBC 3.3 k/uL (3.8-10.6)
[2020-06-01 07:25] VITALS: BP 145/76; PULSE 70; RESP 18; TEMP 98.1
[2020-06-01] MEDS: ASPIRIN 81 MG PEG/G-TUBE SCH (08:20)
[2020-06-01] MEDS: atenoloL 25 MG TAB PEG/G-TUBE SCH (08:20)
[2020-06-01] MEDS: ALPRAZolam 0.5 MG TAB PEG/G-TUBE SCH (08:20)
[2020-06-01] MEDS: PANTOPRAZOLE SODIUM 40 MG GRANULE PKT PEG/G-TUBE SCH (08:21)
[2020-06-01] MEDS: NYSTATIN 100,000 UNIT/ML SUSP 500,000 UNIT/5 ML CUP PO SCH (08:21)
[2020-06-01] MEDS: PIPERACILLIN-TAZOBACTAM 3.375 GM in SODIUM CHLORIDE 0.9% 100 ML IVPB SCH (10:45)
--- NOTE | 2020-06-01 13:06 | P.PN ---
Subjective Progress Note Date: 06/01/20 CHIEF COMPLAINT: Abdominal pain HISTORY OF PRESENT ILLNESS: Surgical service is following in regards to p atient's ileus and seroma. Patient is lying in bed comfortably. He reports improvement in his abdominal pain. His tube feedings were restarted and he is tolerating. Denies any nausea or vomiting. He is passing gas. Last bowel movement 2 days ago. Afebrile. WBC 3.3 hemoglobin 7.4 PHYSICAL EXAM: VITAL SIGNS: Reviewed. GENERAL: Well-developed in no acute distress. HEENT: No sclera icterus. Extraocular movements grossly intact. Moist buccal mucosa. Head is atraumatic, normocephalic. ABDOMEN: Soft. Nondistended. Nontender Incision site clean dry and intact. NEUROLOGIC: Alert and oriented. Cranial nerves II through XII grossly intact. ASSESSMENT: 1. Abdominal pain 2. Ileus 3. Right upper quadrant fluid collection is likely a seroma and doubt that it would be an abscess 4. Status post recent open cholecystectomy 05/20/20 PLAN: -No plans for any surgical intervention -Patient can be discharged from surgical standpoint -Continue tube feedings -Continue antibiotics per ID -Continue supportive care -Remove every other staple from incision site Physician Electric Blasting Cap Assembler note has been reviewed by physician. Signing provider agrees with the documented findings, assessment, and plan of care. Objective - Vital Signs Vital signs: Vital Signs Temp 98.1 F 06/01/20 07:24 Pulse 70 06/01/20 07:24 Resp 18 06/01/20 07:24 BP 145/76 06/01/20 07:24 Pulse Ox 96 06/01/20 05:00 Intake & Output 05/31/20 06/01/20 06/01/20 18:59 06:59 18:59 Intake Total 120 60 Output Total 400 Balance 120 60 -400 Weight 70.9 kg 70.896 kg Intake: Oral 0 Tube Feeding 60 60 Other 60 Output: Urine 400 Other: Voiding Method Bedside Commode Bedside Commode Urinal - Labs CBC & Chem 7: 06/01/20 05:29 06/01/20 05:29 Labs: Abnormal Lab Results - Last 24 Hours (Table) 06/01/20 06/01/20 Range/Units 05:29 05:29 WBC 3.3 L (3.8-10.6) k/uL RBC 2.45 L (4.30-5.90) m/uL Hgb 7.4 L (13.0-17.5) gm/dL Hct 23.5 L (39.0-53.0) % RDW 18.4 H (11.5-15.5) % Lymphocytes # 0.2 L (1.0-4.8) k/uL Procalcitonin 0.41 H (0.02-0.09) ng/mL Microbiology - Last 24 Hours (Table) 05/29/20 05:30 Blood Culture - Preliminary Blood No Growth after 72 hours
[2020-06-01 14:19] LABS: African American GFR (CKD) 122.3 (60.0-200.0); Anion Gap 8.9 mmol/L (4.00-12.00); BUN/Creat Ratio 18.33 Ratio (12.00-20.00); C Reactive Protein 8.5 mg/dL (0.0-0.8); Calcium 7.5 mg/dL (8.7-10.3); Carbon Dioxide 22.1 mmol/L (21.6-31.8); Non-African American GFR(CKD) 105.5 (60.0-200.0); Potassium 2.9 mmol/L (3.5-5.5)
--- NOTE | 2020-06-01 14:53 | PN ---
PROGRESS NOTE This is a 65-year-old white male who has a seroma of her right upper quadrant around the gallbladder area. He has been taking some PEG tube feedings that he normally takes at home. clear by GI and Surgery. Possible discharge home today. CARDIOVASCULAR: S1, S2. LUNGS: Clear. GI: Soft. HEMATOLOGY: Negative Homans. Please see further orders for discharge. MMODL / IJN: [id number] /
--- NOTE | 2020-06-01 16:26 | PN ---
PROGRESS NOTE DATE OF SERVICE: 06/01/2020 REASON FOR FOLLOWUP: Right upper quadrant postop seroma versus abscess. INTERVAL HISTORY: The patient is currently afebrile. The Interventional Radiologist saw the patient yesterday. Recommending against drainage of the collection as risk outweighs the benefit. The patient's pain is currently controlled. No chest pain, shortness of breath or cough. No diarrhea. PHYSICAL EXAMINATION: VITAL SIGNS: Blood pressure 145/76 with a pulse of 70, temperature 98.1, he is 96% on room air. GENERAL DESCRIPTION: Patient is an elderly male lying in bed in no distress. HEENT: Examination shows no pallor or scleral icterus. Oral mucous membrane is dry. LUNGS: Unlabored breathing, clear to auscultation anteriorly. HEART: S1-S2, regular rate and rhythm. ABDOMEN: Soft, no tenderness. Incision is currently intact. LABS: Hemoglobin 7.4, white count 3.3, BUN of 11, creatinine 0.6. DIAGNOSTIC IMPRESSION AND PLAN: Patient with right upper quadrant fluid collection, postop seroma versus abscess. Patient clinically responded to Zosyn to continue while monitor clinical course closely. Continue supportive care. MMODL / IJN: [id number] /
--- NOTE | 2020-06-02 12:57 | P.PN ---
Subjective Progress Note Date: 06/01/20 Principal diagnosis: Abdominal pain Was seen and examined sitting up in bed. He denies any abdominal pain. Tube feedings were started, however there are no pumps available so he is giving his feedings by syringe with no difficulty. He denies any nausea or vomiting. Objective - Vital Signs Vital signs: Vital Signs Temp 98.1 F 06/01/20 07:24 Pulse 70 06/01/20 07:24 Resp 18 06/01/20 07:24 BP 145/76 06/01/20 07:24 Pulse Ox 96 06/01/20 05:00 Intake & Output 05/31/20 06/01/20 06/01/20 18:59 06:59 18:59 Intake Total 120 60 Output Total 400 Balance 120 60 -400 Weight 70.9 kg 70.896 kg Intake: Oral 0 Tube Feeding 60 60 Other 60 Output: Urine 400 Other: Voiding Method Bedside Commode Bedside Commode Urinal - Exam General appearance: The patient is alert, oriented, appears in no acute distress. HET: Head is normocephalic and atraumatic. Conjunctiva pink. Sclera anicteric. Neck: Supple without lymphadenopathy. Abdomen: Soft, nontender, PEG tube site clean dry and intact, nondistended with bowel sounds. Incision site clean dry and intact. No guarding or rigidity. Extremities: Normal skin color and turgor. No pedal edema Skin: No rashes, no jaundice Neurological: No focal deficits. Alert and oriented 3. - Labs CBC & Chem 7: 06/01/20 05:29 06/01/20 05:29 Labs: Abnormal Lab Results - Last 24 Hours (Table) 06/01/20 Range/Units 05:29 WBC 3.3 L (3.8-10.6) k/uL RBC 2.45 L (4.30-5.90) m/uL Hgb 7.4 L (13.0-17.5) gm/dL Hct 23.5 L (39.0-53.0) % RDW 18.4 H (11.5-15.5) % Lymphocytes # 0.2 L (1.0-4.8) k/uL Microbiology - Last 24 Hours (Table) 05/29/20 05:30 Blood Culture - Preliminary Blood No Growth after 72 hours Assessment and Plan (1) Abdominal pain Narrative/Plan: The 65-year-old male patient who was complaining of discomfort with PEG tube feedings probably related to recent cholecystectomy and abnormal finding on the computed tomography scan. The PEG tube itself is patent and there is no evidence of obstruction and the PEG tubing. Tube feedings reinitiated per syringe feeding. Dietitian consult for tube feeding recommendations. Patient is tolerating well. Status: Acute Priority: High Code(s): R10.9 - UNSPECIFIED ABDOMINAL PAIN SNOMED Code(s): 76864887 (2) History of head and neck cancer Narrative/Plan: Status post chemoradiation therapy in the past Status: Acute Code(s): Z85.89 - PERSONAL HISTORY OF MALIGNANT NEOPLASM OF ORGANS AND SYSTEMS SNOMED Code(s): 070880114 Plan: 1. Continue symptomatic supportive care 2. Continue with broad-spectrum antibiotics 3. Tinea PEG tube feedings per recommendations from dietitian 4. No need for any PEG tube replacement at the present time Thank you for this consultation, we will sign off at this time. Dr. Delgado I agree with the dictator's note, documented as a scribe by Lindsey Carvajal.
[2020-06-12] MEDS ORDERED: NIVOLUMAB 100 MG/10 ML IV SCH (09:00)
== END 2020-06-01 16:00 | disposition home or self-care (01) | DRG 920 ==
LOC: EC 18:36 → 5NMEDONC 22:33
PROVIDERS: ADMIT Family Medicine; ATTEND Family Medicine
DX: K91.872 Postprocedural seroma of a digestive system organ or structure following a digestive system procedure (principal); K56.7 Ileus, unspecified; Z43.1 Encounter for attention to gastrostomy; C79.51 Secondary malignant neoplasm of bone; C78.7 Secondary malignant neoplasm of liver and intrahepatic bile duct; T81.49XA Infection following a procedure, other surgical site, initial encounter; Z20.822 Contact with and (suspected) exposure to COVID-19; R13.14 Dysphagia, pharyngoesophageal phase; R13.12 Dysphagia, oropharyngeal phase; I10 Essential (primary) hypertension; D72.829 Elevated white blood cell count, unspecified; E78.5 Hyperlipidemia, unspecified; F32.9 Major depressive disorder, single episode, unspecified; F41.9 Anxiety disorder, unspecified; K21.9 Gastro-esophageal reflux disease without esophagitis; M19.90 Unspecified osteoarthritis, unspecified site; Z79.82 Long term (current) use of aspirin; Z79.899 Other long term (current) drug therapy; Z87.891 Personal history of nicotine dependence; Z85.01 Personal history of malignant neoplasm of esophagus; Z90.49 Acquired absence of other specified parts of digestive tract; Z87.19 Personal history of other diseases of the digestive system; Z87.442 Personal history of urinary calculi; Z92.21 Personal history of antineoplastic chemotherapy; Z92.3 Personal history of irradiation; Z98.890 Other specified postprocedural states; Z91.040 Latex allergy status; Z91.048 Other nonmedicinal substance allergy status; Z80.42 Family history of malignant neoplasm of prostate; Z80.8 Family history of malignant neoplasm of other organs or systems; Z80.41 Family history of malignant neoplasm of ovary; Z80.3 Family history of malignant neoplasm of breast; Z85.89 Personal history of malignant neoplasm of other organs and systems; Z85.818 Personal history of malignant neoplasm of other sites of lip, oral cavity, and pharynx; Y83.6 Removal of other organ (partial) (total) as the cause of abnormal reaction of the patient, or of later complication, without mention of misadventure at the time of the procedure
CPT/HCPCS: 36415; 71046; 74018; 74177; 80048; 80053; 83605; 83735; 84145; 85025; 85610; 86140; 87040; 87635; 96361; 96374; 99285

== ENCOUNTER 2020-06-15 07:29 | Day surgery (SDC) | payer MEDICARE, OTHER ==
[2020-06-10 13:12] VITALS: BMI 25.7
[~2020-06-15 07:29] MED LIST changes: +ACETAMINOPHEN TAB 500 MG TAB PO PRN; +DEXAMETHASONE SOD PHOSPHATE 4 MG/ML 1 ML VIAL IV ONE; +HEPARIN SODIUM,PORCINE/PF 5,000 UNIT/0.5 ML SYRINGE SQ PRN; +HYDROmorphone 0.5 MG/0.5 ML SYRINGE IVP PRN; -LIDOCAINE 1% (10MG/ML) FOR IV START INTRADERMA PRN; +MIDAZOLAM 2 MG/2 ML VIAL IV PRN; +ONDANSETRON 4 MG/2 ML VIAL IVP ONE; +Pre Op ABX Message 1 EACH MISC MISCELLANE ONE
[2020-06-15 07:51] VITALS: TEMP 97.5
[2020-06-15] MEDS ORDERED: ACETAMINOPHEN IV (For NPO) 1,000 MG/100 ML VIAL IVPB ONE (08:08)
--- NOTE | 2020-06-15 08:59 | P.GSHP ---
History of Present Illness H&P Date: 06/15/20 Chief Complaint: Squamous cell carcinoma head neck 65-year-old male with history of squamous cell carcinoma head neck. Patient resents today for Port-A-Cath insertion. Past Medical History Past Medical History: Cancer, GI Bleed, Hyperlipidemia, Osteoarthritis (OA) Additional Past Medical History / Comment(s): Pt recently admitted to [facility] on 04/23/20 with abdominal pain, nausea/vomiting/fevers and was tx with antibiotics. 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 Past Anesthesia/Blood Transfusion Reactions: No Reported Reaction Past Psychological History: Anxiety, Depression Smoking Status: Former smoker Past Alcohol Use History: None Reported Past Drug Use History: None Reported - Past Family History Father Family Medical History: Cancer Additional Family Medical History / Comment(s): prostate cancer that spread to the brain Mother Family Medical History: Cancer Additional Family Medical History / Comment(s): ovarian cancer Sister(s) Family Medical History: Cancer Additional Family Medical History / Comment(s): breast cancer Medications and Allergies Home Medications Medication Instructions Recorded Confirmed Type PARoxetine HCL [Paxil] 10 mg PEG/G-TUBE HS 08/28/19 06/15/20 History Nivolumab [Opdivo] 100 mg IV QMONTHLY 10/27/19 06/15/20 History ALPRAZolam [Xanax] 0.5 mg PEG/G-TUBE BID 02/16/20 06/15/20 History Aspirin 81 mg PEG/G-TUBE DAILY 03/02/20 06/10/20 History Atorvastatin [Lipitor] 10 mg PEG/G-TUBE HS 03/02/20 06/15/20 History Esomeprazole Magnesium 20 mg PEG/G-TUBE QAM 05/20/20 06/15/20 History Nystatin 100,000 Unit/ml Susp 500,000 units PO QID 05/20/20 06/15/20 History [Mycostatin Oral Susp] HYDROcodone/APAP 5-325MG [Crosby 1 tab PEG/G-TUBE Q6HR PRN 05/28/20 06/15/20 History 5-325] atenoloL [Tenormin] 12.5 mg PEG/G-TUBE BID 05/28/20 06/15/20 History Jevity 2 can PEG/G-TUBE QID 06/10/20 History Allergies Allergy/AdvReac Type Severity Reaction Status Date / Time adhesive tape Allergy Rash/Hives Verified 06/15/20 07:47 latex Allergy Rash/Hives Verified 06/15/20 07:47 Surgical - Exam Vital Signs Temp Pulse Resp BP Pulse Ox 97.5 F L 73 17 132/76 98 06/15/20 07:50 06/15/20 07:50 06/15/20 07:50 06/15/20 07:50 06/15/20 07:50 - General well developed, well nourished, no distress - Eyes PERRL - ENT normal pinna - Neck no masses - Respiratory normal expansion - Cardiovascular Rhythm: regular - Abdomen Abdomen: soft, non tender Assessment and Plan Assessment: History of squamous cell carcinoma head neck. Patient will undergo Port-A-Cath insertion today. Patient aware the risk of pneumothorax.
[2020-06-15] MEDS ORDERED: KETAMINE 10 MG/ML 20 ML VIAL ONE (09:07)
[2020-06-15] MEDS ORDERED: MIDAZOLAM 2 MG/2 ML VIAL ONE (09:07)
[2020-06-15] MEDS ORDERED: fentaNYL (PF) 50 MCG/ML 2 ML AMP ONE (09:07)
[2020-06-15] MEDS ORDERED: SODIUM CHLORIDE 0.9% 100 ML with ceFAZolin 2,000 MG IV ONE ×2 (09:32)
[2020-06-15] MEDS ORDERED: BUPIVACAIN-EPI 0.5%-1:200,000 30 ML VIAL SQ ONE ×2 (09:33)
[2020-06-15] MEDS ORDERED: HEPARIN SODIUM,PORCINE 100 UNIT/ML 5 ML VIAL IV ONE (09:33)
--- NOTE | 2020-06-15 10:03 | P.OP ---
Date of Procedure: 06/15/20 Preoperative Diagnosis: Squamous cell carcinoma Postoperative Diagnosis: Squamous cell carcinoma head neck Procedure(s) Performed: Left subclavian Port-A-Cath Anesthesia: BLAINE Surgeon: Raheem Zaragoza Pathology: none sent Condition: stable Disposition: PACU Description of Procedure: MiROCEDURE: The patient was placed on the operating table in the supine position. She received MAC anesthetic. The [right] chest was prepped and draped in the usual sterile fashion. The skin underneath the right clavicle was anesthetized with 1% Xylocaine and using Seldinger technique, the right subclavian vein was cannulized. The wire was placed through the needle and positioned under fluoroscopy. Next, the needle was removed and the port site was anesthetized with 1% Xylocaine. Skin was incised with #15 blade and port pocket was made using blunt and sharp dissection. Following this the catheter was attached to the sport and the port was flushed. The port was positioned into the pocket site and was secured with 3-0 Vicryl suture. The catheter was then brought out through the wire site and then the dilator sheath was placed over the wire and the dilator and the wire were removed. The catheter was placed through the sheath and the sheath was removed. The port was flushed with hep-lock solution. Skin was closed with interrupted 3-0 Vicryl sutures. Steri-Strips were applied. The patient tolerated the procedure well. The patient was sent to recovery room for chest x-ray after the procedure.sangita left Port-A-Cath insertion
[2020-06-15 10:06] VITALS: RESP 16
--- NOTE | 2020-06-15 10:19 | FL ---
Fluoroscopy INDICATION: Pain FINDINGS: Fluoroscopy time: 1 seconds. Images obtained: 1. IMPRESSIONS: 1. Documentation of fluoroscopy.
[2020-06-15 10:31] VITALS: BP 115/71; PULSE 68
--- NOTE | 2020-06-15 10:35 | XR ---
EXAMINATION TYPE: XR chest 1V portable DATE OF EXAM: 06/15/2020 COMPARISON: 05/28/2020 INDICATION: Mediport placement TECHNIQUE: Single frontal view of the chest is obtained. FINDINGS: The heart size is normal. The pulmonary vasculature is normal. Mild bibasilar infiltrates are present. Port is placed on the left the tip in the superior vena cava region. No pneumothorax is evident. IMPRESSION: 1. Bibasilar infiltrates, similar to prior study. 2. Placement of a left-sided port with tip in the superior vena cava region. No pneumothorax is evide nt.
== END 2020-06-15 11:13 | disposition home or self-care (01) ==
LOC: OR 07:29
PROVIDERS: ATTEND Surgery
DX: C76.0 Malignant neoplasm of head, face and neck (principal); I10 Essential (primary) hypertension; E78.5 Hyperlipidemia, unspecified; M19.90 Unspecified osteoarthritis, unspecified site; F32.9 Major depressive disorder, single episode, unspecified; Z79.82 Long term (current) use of aspirin; Z79.899 Other long term (current) drug therapy; Z80.3 Family history of malignant neoplasm of breast; Z80.41 Family history of malignant neoplasm of ovary; Z80.42 Family history of malignant neoplasm of prostate; Z87.891 Personal history of nicotine dependence; Z90.49 Acquired absence of other specified parts of digestive tract; Z91.040 Latex allergy status; Z91.048 Other nonmedicinal substance allergy status; Z93.1 Gastrostomy status
CPT/HCPCS: 77001; 71045; 36561; C1788; J2250; J1642; J1100; J2405; J0690; J3010; J0131; J1644

== ENCOUNTER → 2020-06-23 | Outpatient (CLI) | payer MEDICARE, OTHER ==
[2020-06-23 10:38] LABS: African American GFR (CKD) >90 (>60 ml/min/1.73 sqM); Blood Urea Nitrogen 18 mg/dL (9-20); Non-African American GFR(CKD) >90 (>60 ml/min/1.73 sqM)
--- NOTE | 2020-06-23 13:18 | CT ---
EXAMINATION TYPE: CT ChestAbdPelvis w con DATE OF EXAM: 06/23/2020 INDICATION: Follow up for head, face and neck cancer. COMPARISON: 05/28/2020 CT DLP: 1369.2 mGycm CONTRAST: Performed with Oral Contrast and with IV Contrast, patient injected with 100ml mL of Isovue 300. TECHNIQUE: Axial images at 5 mm thick sections. Reconstructed images in the coronal plane. Delayed images through the kidneys. FINDINGS: CT CHEST: The inferior left lobe thyroid contains a hypodense area. Posterior hypodense areas within the mid thyroid. Additional workup of the thyroid with ultrasound is recommended. Emphysematous andrade es are present. There are some scattered peripheral infiltrates which are nonspecific. Metastatic dis ease is not excluded. Other etiologies including atypical pneumonia could be considered. Some pulmona ry fibrosis may be at the lung bases. No enlarged mediastinal or hilar adenopathy is evident. The ascending aorta diameter at the level of the main pulmonary artery is 3.2 cm. The main pulmonary artery diameter at the bifurcation is 2.4 cm. Coronary artery calcification is noted. CT ABDOMEN: PEG tube is within the stomach. Liver: There is a hypodensity within the right lobe liver medially 1.3 cm and 40 Hounsfield units. Th is is not a simple cyst. Spleen: Normal Pancreas: Normal Adrenal glands: The adrenal glands are normal. Gallbladder: There are scattered hypodensities within the gallbladder likely related to cholesterol g allstones. Kidneys: No masses are identified. No hydronephrosis is present. No cysts are present. There is a 0.3 cm hyperdensity within the mid left kidney. A nonobstructing renal stone could be considered. Aorta: Vascular calcification is within the aorta. Inferior vena cava: Normal. CT PELVIS: Loops of bowel within the abdomen and pelvis are normal. Scattered diverticuli within the sigmoid co carrie There are loops of bowel which are incompletely distended or lack oral contrast limiting their evaluation. Appendix: Normal as visualized. Urinary bladder: Normal. Genitourinary structures: The prostate is slightly prominent Osseous structures: No suspicious lytic or sclerotic lesions. Facet degenerative changes are within t he lumbar spine. IMPRESSIONS: 1. Hypodensities within the enlarged inferior pole left thyroid lobe. Additional workup with thyroid ultrasound is recommended. Neoplasm is not excluded. 2. 1.3 cm hypodensity within the medial hilum of the liver is not a simple cyst. This was present pre viously may be slightly larger. A metastatic lesion cannot be excluded. 3. Cholelithiasis. 4. Diverticulosis without acute diverticulitis.
--- NOTE | 2020-06-23 13:29 | CT ---
EXAMINATION TYPE: CT soft tissue neck w con DATE OF EXAM: 06/23/2020 COMPARISON: 04/25/2020 HISTORY: Follow up for head, face and neck cancer. CT DLP: 515.9 mGycm CONTRAST: Patient injected with 100ml mL of Isovue 300. TECHNIQUE: Axial images at 3 mm thick sections. Reconstructed images in the coronal plane and sagitt al plane are reviewed. FINDINGS: Limited CT sections are obtained the lung apices. There are some patchy infiltrates in the upper lung alegria. Some emphysematous changes present. CT neck: The torus tubarius and fossa of Rosenmuller are normal. Lasting Machine Operator spaces are normal. The thyroid appears heterogenous. Ultrasound is recommended for additional evaluation. Parotid glands appear normal and symmetrical. Submandibular glands, are normal. Parapharyngeal spac es are normal. No suspicious adenopathy is evident. There is some asymmetry of the posterior right tongue base, present previously Vocal cord level appear symmetrical. Some degenerative changes within the lower cervical spine. Epiglottis appears normal. IMPRESSIONS: 1. No suspicious new masses or recurrent mass is identified. 2. Heterogenous thyroid, evaluation with ultrasound is recommended.
== END | disposition home or self-care (01) ==
LOC: RADCTMAIN 09:41
PROVIDERS: ATTEND Internal Medicine Hematology & Oncology
DX: C76.0 Malignant neoplasm of head, face and neck (principal); K80.20 Calculus of gallbladder without cholecystitis without obstruction; K57.90 Diverticulosis of intestine, part unspecified, without perforation or abscess without bleeding
CPT/HCPCS: 82565; 84520; 70491; 71260; 74177; 36415; J1642; Q9967

== ENCOUNTER → 2020-07-06 | Outpatient (CLI) | payer MEDICARE, OTHER ==
--- NOTE | 2020-07-06 11:16 | US ---
EXAMINATION TYPE: US thyroid st tissue head/neck DATE OF EXAM: 07/06/2020 COMPARISON: CT CLINICAL HISTORY: E04.1 Thyroid nodule. Left thyroid nodules seen on CT GLAND SIZE: Right Lobe: 4.7 x 1.4 x 1.3 cm Overall Parenchyma: heterogenous Left Lobe: 4.5 x 2.0 x 1.7 cm Overall Parenchyma: heterogeneous Isthmus Thickness: 0.6 cm NODULES RIGHT: # of nodules measured on right: 0 LEFT: # of nodules measured on left: 2 1. 2.0 X 1.9 x 1.5 cm, lower lateral, mixed cystic and solid, hypoechoic nodule, which is wider onur n tall, with smooth margins, without echogenic foci. Prior size: Visualized on CT 2. 1.7 X 1.5 x 1.9 cm, lower, solid or almost completely solid, hypoechoic nodule, which is wider than tall, with ill-defined margins, without echogenic foci. Prior size: Visualized on CT Bilateral neck scanned, no evidence of lymphadenopathy. Two nodules left lobe > 1 cm. Pt has scar fro m prior trach midline neck, difficult to visualize isthmus. IMPRESSION: Mildly suspicious, additional follow-up thyroid ultrasound is recommended in 2 additional years 2017 ACR TI-RADS LEVEL: TR 3 *Highest TI-RADS level nodule reported
--- NOTE | 2020-07-06 11:32 | US ---
EXAMINATION TYPE: US abdomen limited DATE OF EXAM: 07/06/2020 COMPARISON: CT 06/23/2020 CLINICAL HISTORY: Liver ds unspec K76.89,. Possible liver lesion and gallstones visualized on prior C T/ pt has history of mouth/throat CA, pt states GB surgically removed EXAM MEASUREMENTS: Liver Length: 16.2 cm CBD: 0.4 cm Right Kidney: 9.9 x 4.8 x 4.9 cm Pancreas: Obscured by bowel gas, pt has feeding tube inserted midline ABD Liver: Hypoechoic, solid lesion appearing lesion adjacent to the lesa hepatis measuring 1.7 x 1.3 x 1.6 cm. Gallbladder: The gallbladder remains. The gallbladder wall is grossly thickened with internal heterog eneous material suggestive of tumefactive sludge or mass. Underlying mass is not excluded. Surgical e valuation is recommended. Evidence for sonographic Gayle's sign: No CBD: wnl Right Kidney: wnl IMPRESSION: 1. Pancreas is obscured due to overlying bowel gas. Patient has a feeding tube in the midline. 2. Hypoechoic solid-appearing lesion adjacent to the lesa hepatis within the liver measuring 1.7 cm likely corresponds to the CT dated 06/23/2020. 3. The gallbladder wall is grossly thickened with heterogeneous material within the gallbladder sugge stive of tumefactive sludge or mass. Underlying mass is not excluded. Surgical evaluation is recommen ded.
== END | disposition home or self-care (01) ==
LOC: RADUSWWP 09:38
PROVIDERS: ATTEND Family Medicine
DX: E04.2 Nontoxic multinodular goiter (principal); K76.9 Liver disease, unspecified
CPT/HCPCS: 76536; 76705

== ENCOUNTER → 2020-09-16 | Outpatient (CLI) | payer MEDICARE, OTHER ==
[2020-09-16 10:41] LABS: African American GFR (CKD) >90 (>60 ml/min/1.73 sqM); Blood Urea Nitrogen 25 mg/dL (9-20); Non-African American GFR(CKD) >90 (>60 ml/min/1.73 sqM)
--- NOTE | 2020-09-17 07:47 | CT ---
EXAMINATION TYPE: CT soft tissue neck w con DATE OF EXAM: 09/16/2020 COMPARISON: HISTORY: Follow up throat cancer per patient CT DLP: 1158.3 mGycm CONTRAST: Patient injected with 100 mL of Isovue 300. TECHNIQUE: Axial images at 3 mm thick sections. Reconstructed images in the coronal plane and sagitt al plane are reviewed. FINDINGS: Limited CT sections are obtained the lung apices. The lung apices appear clear. CT neck: The torus tubarius and fossa of Rosenmuller are normal. Pipe Fittings Molder spaces are normal. Para nasal sinuses and mastoid air cells are clear. Parotid glands appear normal and symmetrical. Submandibular glands are stable in appearance. Parapha ryngeal spaces are normal. No suspicious adenopathy is evident. Asymmetry within the tongue appears diminished over the interval. The hypopharynx appears within normal limits. Vocal cord level appear symmetrical. There is a 1.5 cm hypodensity within the left thyroid lobe. A second hypodensity is more inferior denia suring 1.5 cm in diameter. Thyroid ultrasound was performed 07/06/2020. Lung apices within the field of view are clear. Osseous structures appear intact. IMPRESSIONS: 1. Diminished asymmetry of the tongue. 2. No new or recurrent suspicious masses.
--- NOTE | 2020-09-17 12:33 | CT ---
EXAMINATION TYPE: CT ChestAbdPelvis w con DATE OF EXAM: 09/16/2020 INDICATION: Follow up throat cancer per patient COMPARISON: 06/23/2020 CT DLP: 1158.3 mGycm CONTRAST: Performed with Oral Contrast and with IV Contrast, patient injected with 100 mL of Isovue 300. TECHNIQUE: Axial images at 5 mm thick sections. Reconstructed images in the coronal plane. Delayed images through the kidneys. FINDINGS: CT CHEST: There is a hypodensity on the inferior pole left lobe thyroid measuring 1.5 cm. This could be evaluat ed with ultrasound. This was present previously There is thickening along the right apex. A couple punctate nodules at the left apex. Couple of punct ate densities are within the right lung, series 3 image 23, present previously Findings appear stable over the interval. There is a new nodular consolidation in the left lower lobe, series 3 image 41. More inferior consoli dation has worsened over the interval. Bronchograms are present. Pneumonia should be considered. This should be followed to clearing. Some milder consolidations at the left base. No enlarged mediastinal or hilar adenopathy is evident. The ascending aorta diameter at the level of the main pulmonary artery is 2.8 cm. The main pulmonary artery diameter at the bifurcation is 2.[address] ABDOMEN: PEG tube is present.1 Liver: Echodensities within the hilum of the liver have enlarged over the interval. This currently me asures 2.7 and 2.2 cm with ill-defined margins. Findings are suspicious for metastasis. Spleen: Normal Pancreas: Normal Adrenal glands: The adrenal glands are normal. Gallbladder: Small amount of air is within the gallbladder. Kidneys: No masses are evident. No hydronephrosis is present. No cysts are present. Delayed images were obtained through the kidneys, which remain unremarkable. Aorta: Vascular calcification is within the aorta. Inferior vena cava: Normal. CT PELVIS: Loops of bowel within the abdomen and pelvis are normal. A few diverticuli are present. There are loops of bowel which are incompletely distended or lack oral contrast limiting their evaluation. Appendix: Not visualized. No dilated tubular structure or inflammatory change is evident. Urinary bladder: Normal. Genitourinary structures: Prostate appears normal Osseous structures: No suspicious lytic or sclerotic lesions are evident. IMPRESSIONS: 1. Lower lobe consolidations or suspicious on the left. Pneumonia and atelectasis are most likely wit hin the differential. Metastasis cannot be excluded. Follow-up is recommended. 2. Enlarging ill-defined hypoechoic lesions within the liver suspicious for metastasis. 3. Diverticulosis without acute diverticulitis.
== END | disposition home or self-care (01) ==
LOC: RADCTMAIN 09:36
PROVIDERS: ATTEND Internal Medicine Hematology & Oncology
DX: C14.0 Malignant neoplasm of pharynx, unspecified (principal); J18.9 Pneumonia, unspecified organism; K57.90 Diverticulosis of intestine, part unspecified, without perforation or abscess without bleeding
CPT/HCPCS: 82565; 84520; 70491; 71260; 74177; J1642; Q9967

== ENCOUNTER 2020-10-03 07:39 | Inpatient (IN) | payer MEDICARE, OTHER ==
[2020-10-03] MEDS ORDERED: ONDANSETRON 4 MG/2 ML VIAL IVP STA (08:09)
[2020-10-03] MEDS ORDERED: SODIUM CHLORIDE 0.9% 1,000 ML IV ONE ×2 (08:09→15:03)
--- NOTE | 2020-10-03 08:14 | ED ---
General Adult HPI - General Chief complaint: Upper Respiratory Infection Stated complaint: upper airway obstruction Time Seen by Provider: 10/03/20 07:45 Source: patient, RN notes reviewed, old records reviewed Mode of arrival: EMS Limitations: no limitations - History of Present Illness Initial comments: This is a 65-year-old male who presents emergency Department with a history of esophageal cancer. Patient states she's received radiation in the past and he continues to be on opdivo. Patient's comes in today because he states over the last week is having more more difficult time swallowing. Patient denies any difficulty breathing or cough. Patient states she's also very nauseated. Patient denies any chest pain. Patient denies any fever chills. Patient denies any abdominal pain. Patient states he has had a history of thrush in the past. Patient states he recently was treated for pneumonia and just got done with his antibiotics. - Related Data Home Medications Medication Instructions Recorded Confirmed PARoxetine HCL [Paxil] 10 mg PEG/G-TUBE DAILY 08/28/19 10/03/20 ALPRAZolam [Xanax] 0.5 mg PEG/G-TUBE BID 02/16/20 10/03/20 Aspirin 81 mg PEG/G-TUBE DAILY 03/02/20 10/03/20 Jevity 1 can PEG/G-TUBE Q4H 06/10/20 10/03/20 Allergies Allergy/AdvReac Type Severity Reaction Status Date / Time adhesive tape Allergy Rash/Hives Verified 10/03/20 11:01 latex Allergy Rash/Hives Verified 10/03/20 11:01 Review of Systems ROS Statement: Those systems with pertinent positive or pertinent negative responses have been documented in the HPI. ROS Other: All systems not noted in ROS Statement are negative. Past Medical History Past Medical History: Cancer, GI Bleed, Hyperlipidemia, Osteoarthritis (OA) Additional Past Medical History / Comment(s): Pt recently admitted to [facility] on 04/23/20 with abdominal pain, nausea/vomiting/fevers and was tx with antibiotics. 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 Past Anesthesia/Blood Transfusion Reactions: No Reported Reaction Past Psychological History: Anxiety, Depression Smoking Status: Former smoker Past Alcohol Use History: None Reported Past Drug Use History: None Reported - Past Family History Father Family Medical History: Cancer Additional Family Medical History / Comment(s): prostate cancer that spread to t he brain Mother Family Medical History: Cancer Additional Family Medical History / Comment(s): ovarian cancer Sister(s) Family Medical History: Cancer Additional Family Medical History / Comment(s): breast cancer General Exam - General Exam Comments Initial Comments: GENERAL: Patient is well-developed and well-nourished. Patient is nontoxic and well- hydrated and is in mild distress. ENT: Neck is soft and supple. No significant lymphadenopathy is noted. Oropharynx is clear. Patient appears to have thrush on his cheeks and tongue. EYES: The sclera were anicteric and conjunctiva were pink and moist. Extraocular movements were intact and pupils were equal round and reactive to light. Eyelids were unremarkable. PULMONARY: Unlabored respirations. Patient is moving good air however have some crackles in the right base. CARDIOVASCULAR: Patient is tachycardic at about 100 beats a minute ABDOMEN: Soft and nontender with normal bowel sounds. SKIN: Patient has circular erythematous areas all over his arms neck and chest patient states is secondary to medication he is on that his with his oncologist told him. NEUROLOGIC: Patient is alert and oriented x3. Cranial nerves II through XII are grossly intact. Motor and sensory are also intact. Normal speech, volume and content. Symmetrical smile. MUSCULOSKELETAL: Normal extremities with adequate strength and full range of motion. LYMPHATICS: No significant lymphadenopathy is noted PSYCHIATRIC: Normal psychiatric evaluation. Limitations: no limitations Course Vital Signs 10/03/20 10/03/20 10/03/20 07:44 07:54 08:54 Temperature 98.8 F Pulse Rate 110 H 110 H Respiratory 20 18 20 Rate Blood Pressure 140/99 141/98 O2 Sat by Pulse 97 97 Oximetry 10/03/20 10/03/20 10/03/20 14:00 20:15 21:56 Temperature Pulse Rate 69 151 H Respiratory 18 30 H Rate Blood Pressure 118/56 140/83 131/84 O2 Sat by Pulse 100 98 Oximetry Medical Decision Making - Medical Decision Making Computed tomography scan of the abdomen and pelvis showed no acute abnormality. - Lab Data Result diagrams: 10/04/20 00:45 10/04/20 00:30 Lab Results 10/03/20 10/03/20 10/03/20 Range/Units 11:01 11:01 20:31 WBC 1.5 L 2.6 L (3.8-10.6) k/uL RBC 2.30 L 2.32 L (4.30-5.90) m/uL Hgb 8.5 L 8.7 L (13.0-17.5) gm/dL Hct 24.6 L 26.1 L (39.0-53.0) % MCV 107.1 H 112.3 H D (80.0-100.0) fL MCH 37.2 H 37.5 H (25.0-35.0) pg MCHC 34.7 33.3 (31.0-37.0) g/dL RDW 20.0 H 19.5 H (11.5-15.5) % Plt Count 35 L 53 L D (150-450) k/uL MPV 10.0 10.4 Neutrophils % (Manual) 82 55 % Band Neuts % (Manual) 1 27 % Lymphocytes % (Manual) 12 12 % Monocytes % (Manual) 4 3 % Metamyelocytes % 1 3 % Neutrophils # (Manual) 1.20 L 2.10 (1.3-7.7) k/uL Lymphocytes # (Manual) 0.18 L 0.31 L (1.0-4.8) k/uL Monocytes # (Manual) 0.06 0.08 (0-1.0) k/uL Metamyelocytes # (Man) 0.02 H 0.08 H (0) k/uL Nucleated RBCs 0 0 (0-0) /100 WBC Manual Slide Review Performed Performed Toxic Granulation Present Polychromasia Present Hypochromasia Slight Poikilocytosis Slight Anisocytosis Slight Slight Anisocytosis (manual) Present Macrocytosis Marked A Marked A Sodium 137 (137-145) mmol/L Potassium 3.3 L (3.5-5.1) mmol/L Chloride 110 H (98-107) mmol/L Carbon Dioxide 20 L (22-30) mmol/L Anion Gap 7 mmol/L BUN 24 H (9-20) mg/dL Creatinine 0.54 L (0.66-1.25) mg/dL Est GFR (CKD-EPI)AfAm >90 (>60 ml/min/1.73 sqM) Est GFR (CKD-EPI)NonAf >90 (>60 ml/min/1.73 sqM) Glucose 90 (74-99) mg/dL Calcium 7.1 L (8.4-10.2) mg/dL Total Bilirubin 0.9 (0.2-1.3) mg/dL AST 38 (17-59) U/L ALT 28 (4-49) U/L Alkaline Phosphatase 118 (38-126) U/L Total Protein 5.4 L (6.3-8.2) g/dL Albumin 2.6 L (3.5-5.0) g/dL Blood Type Blood Type Recheck Bld Type Recheck Status Antibody Screen Crossmatch Spec Expiration Date 10/03/20 Range/Units 20:31 WBC (3.8-10.6) k/uL RBC (4.30-5.90) m/uL Hgb (13.0-17.5) gm/dL Hct (39.0-53.0) % MCV (80.0-100.0) fL MCH (25.0-35.0) pg MCHC (31.0-37.0) g/dL RDW (11.5-15.5) % Plt Count (150-450) k/uL MPV Neutrophils % (Manual) % Band Neuts % (Manual) % Lymphocytes % (Manual) % Monocytes % (Manual) % Metamyelocytes % % Neutrophils # (Manual) (1.3-7.7) k/uL Lymphocytes # (Manual) (1.0-4.8) k/uL Monocytes # (Manual) (0-1.0) k/uL Metamyelocytes # (Man) (0) k/uL Nucleated RBCs (0-0) /100 WBC Manual Slide Review Toxic Granulation Polychromasia Hypochromasia Poikilocytosis Anisocytosis Anisocytosis (manual) Macrocytosis Sodium (137-145) mmol/L Potassium (3.5-5.1) mmol/L Chloride (98-107) mmol/L Carbon Dioxide (22-30) mmol/L Anion Gap mmol/L BUN (9-20) mg/dL Creatinine (0.66-1.25) mg/dL Est GFR (CKD-EPI)AfAm (>60 ml/min/1.73 sqM) Est GFR (CKD-EPI)NonAf (>60 ml/min/1.73 sqM) Glucose (74-99) mg/dL Calcium (8.4-10.2) mg/dL Total Bilirubin (0.2-1.3) mg/dL AST (17-59) U/L ALT (4-49) U/L Alkaline Phosphatase (38-126) U/L Total Protein (6.3-8.2) g/dL Albumin (3.5-5.0) g/dL Blood Type O Positive Blood Type Recheck O Pos Bld Type Recheck Status No Antibody Screen NEGATIVE Crossmatch See Detail Spec Expiration Date 10/06/20202330 Disposition Clinical Impression: Thrush, History of esophageal cancer, Dysphagia, Thrombocytopenia, Dehydration Disposition: ADMITTED IP TO THIS [facility] Time of Disposition: 13:05
--- NOTE | 2020-10-03 08:45 | XR ---
EXAMINATION TYPE: XR chest 2V DATE OF EXAM: 10/03/2020 COMPARISON: 06/15/2020 HISTORY: Shortness of breath TECHNIQUE: Frontal and lateral views of the chest are obtained. FINDINGS: There is mild blunting of the right costophrenic angle and mild densities in the lung base s posteriorly best seen on the lateral projection. The lungs are clear of consolidative or masslike opacity. There is no pneumothorax. There is a Mediport catheter in the left tip in the SVC. The heart size and pulmonary vasculature are normal. The osseous structures are intact IMPRESSION: Mild chronic changes in the lung bases with no acute cardiopulmonary disease.
[2020-10-03] MEDS ORDERED: KETOROLAC 15 MG/ML 1 ML VIAL IVP STA (11:20)
[2020-10-03 11:25] LABS: Anisocytosis Slight; HCT 24.6 % (39.0-53.0); HGB 8.5 gm/dL (13.0-17.5); MCH 37.2 pg (25.0-35.0); MCHC 34.7 g/dL (31.0-37.0); MCV 107.1 fL (80.0-100.0); Macrocytosis Marked; Poikilocytosis Slight; WBC 1.5 k/uL (3.8-10.6)
[2020-10-03 11:55] LABS: ALT 28 U/L (4-49); AST 38 U/L (17-59); African American GFR (CKD) >90 (>60 ml/min/1.73 sqM); Albumin 2.6 g/dL (3.5-5.0); Alkaline Phosphatase 118 U/L (38-126); Anion Gap 7 mmol/L; Blood Urea Nitrogen 24 mg/dL (9-20); Calcium 7.1 mg/dL (8.4-10.2); Carbon Dioxide 20 mmol/L (22-30); Chloride 110 mmol/L (98-107); Glucose 90 mg/dL (74-99); Non-African American GFR(CKD) >90 (>60 ml/min/1.73 sqM); Potassium 3.3 mmol/L (3.5-5.1); Sodium 137 mmol/L (137-145); Total Bilirubin 0.9 mg/dL (0.2-1.3); Total Protein 5.4 g/dL (6.3-8.2)
[2020-10-03 12:02] LABS: Platelet Count 35 k/uL (150-450)
[2020-10-03 12:09] LABS: Band Neutrophils % 1 %; Lymphocytes # (M) 0.18 k/uL (1.0-4.8); Metamyelocytes # (M) 0.02 k/uL (0); Metamyelocytes % 1 %; Monocytes # (M) 0.06 k/uL (0-1.0); Neutrophils % (M) 82 %; Nucleated Red Blood Cells 0 /100 WBC (0-0); Total Cells Counted 100
[2020-10-03] MEDS ORDERED: MORPHINE SULFATE 2 MG/ML SYRINGE IVP STA (14:29)
--- NOTE | 2020-10-03 14:36 | CT ---
EXAMINATION TYPE: CT abdomen pelvis w con DATE OF EXAM: 10/03/2020 COMPARISON: CT abdomen/pelvis 09/16/2020 HISTORY: Abdominal pain CT DLP: 846.3 mGycm Automated exposure control for dose reduction was used. TECHNIQUE: Helical acquisition of images was performed from the lung bases through the pelvis. Sagit ruth and coronal reformatted images were obtained. CONTRAST: Performed without Oral Contrast and with IV Contrast, patient injected with 100 ml mL of Isovue 300. FINDINGS: Similar-appearing bibasilar groundglass opacities and left basilar consolidation. Liver contains mult iple unchanged hepatic densities during up to 3.5 cm in the inferomedial right hepatic lobe. Spleen, pancreas, and bilateral adrenal glands appear unremarkable. Gallbladder is present and contains a foc us of air, similar to prior. No intrahepatic or extrahepatic biliary ductal dilatation. Kidneys are symmetric in size without hydronephrosis. Urinary bladder appears distended and unremarka ble. Prostate is not significantly enlarged. Percutaneous gastric tube is present with balloon inflated in the gastric lumen. Bowel is of normal c aliber without bowel obstruction. Scattered distal colonic diverticulosis without adjacent inflammato ry changes. Post surgical changes of the cecum with anastomotic sutures. Appendix is absent. No free air. Scattered atherosclerotic calcifications of the abdominal aorta and bilateral common iliac arteries w ithout aneurysm. No definite intra-abdominal or retroperitoneal lymphadenopathy. Osseous structures a ppear unchanged with moderate degenerative changes of the visualized thoracolumbar spine. Osseous les ion involving the posterior superior endplate of the L5 vertebral body which has progressed compared to 08/30/2019 and is unchanged compared to 02/19/2020, may represent a sclerotic metastatic lesion. IMPRESSION: 1. No acute intra-abdominal process. 2. Bibasilar groundglass opacities and left basilar consolidation, similar to prior. 3. Unchanged multiple hepatic metastatic lesions and likely sclerotic osseous metastatic lesion of th e posterior superior endplate of L5. 4. Postsurgical changes of the cecum. No evidence of bowel obstruction. 5. Scattered distal colonic diverticulosis without evidence of diverticulitis.
[2020-10-03] MEDS ORDERED: FLUCONAZOLE 150 MG TAB PEG/G-TUBE STA (15:05)
[2020-10-03] MEDS ORDERED: METOCLOPRAMIDE 5 MG/ML 2 ML VIAL IM PRN (20:20)
[2020-10-03 20:55] LABS: Anisocytosis Slight; HCT 26.1 % (39.0-53.0); HGB 8.7 gm/dL (13.0-17.5); Hypochromasia Slight; MCH 37.5 pg (25.0-35.0); MCHC 33.3 g/dL (31.0-37.0); Macrocytosis Marked; Mean Platelet Volume 10.4; RBC 2.32 m/uL (4.30-5.90); RDW 19.5 % (11.5-15.5); WBC 2.6 k/uL (3.8-10.6)
[2020-10-03 20:57] LABS: MCV 112.3 fL (80.0-100.0); Platelet Count 53 k/uL (150-450)
[2020-10-03] MEDS ORDERED: ALPRAZolam 0.5 MG TAB PEG/G-TUBE SCH (21:00)
[2020-10-03] MEDS ORDERED: PANTOPRAZOLE 40 MG/10 ML VIAL IVP SCH (21:00)
[2020-10-03] MEDS ORDERED: JEVITY PEG/G-TUBE SCH (21:00)
[2020-10-03 21:40] LABS: Band Neutrophils % 27 %; Lymphocytes # (M) 0.31 k/uL (1.0-4.8); Metamyelocytes # (M) 0.08 k/uL (0); Metamyelocytes % 3 %; Monocytes # (M) 0.08 k/uL (0-1.0); Neutrophils % (M) 55 %; Nucleated Red Blood Cells 0 /100 WBC (0-0); Total Cells Counted 200
[2020-10-03 21:41] LABS: Anisocytosis (M) Present; Polychromasia Present; Toxic Granulation Present
--- NOTE | 2020-10-03 21:47 | HP ---
HISTORY AND PHYSICAL This patient is a 65-year-old white male who came to the emergency room with history of esophageal cancer with radiation in the past. He continues to be an Opdivo. He has had pancytopenia, difficulty swelling today, difficulty breathing. He came to the emergency room, was admitted for nausea, possible severe thrush. He vomited up a large amount of blood in the ER. His hemoglobin is 8.5 on admission. He has pancytopenia. He can be typed and crossed unit of blood. Discussed the case with Dr. Zaragoza, who is going to take the case, as there is no GI coverage. He will come in and see the patient. He will be given one unit of blood. HOME MEDICINES: 1. Paxil 10 mg daily through the PEG tube. 2. Xanax 0.5 mg b.i.d. through the PEG tube. 3. Aspirin 81 mg daily through the PEG tube. 4. Jevity 1 can through the PEG tube every 4 hours. ALLERGIES: ADHESIVE AND LATEX. REVIEW OF SYSTEMS: Fourteen-point review of systems negative except for mentioned in HPI. PAST MEDICAL HISTORY: Cancer, GI bleed, dyslipidemia, osteoarthritis. PAST SURGICAL HISTORY: Bowel resection, cholecystectomy, tracheostomy, EGD, FNA, colostomy with reversal, anxiety, depression. Former smoker. FAMILY HISTORY: Father with cancer of the prostate. Mother with cancer of the ovaries. PHYSICAL EXAMINATION: He is thin, cachectic, nontoxic. His skin has dry poor skin turgor. ENT normal. Pupils equal, round, reactive. Lungs are clear. Cardiovascular: S1, S2. Abdomen has PEG tube. Soft, nontender. Skin: As mentioned above. No rashes. Neurologic: Cranial nerves intact. Psych: Fair mood and affect. Musculoskeletal: Moves all 4 extremities. Temperature 98, pulse rate is low 100s, respiratory rate 18-20, blood pressure is 140s over 90s, oxygen saturation is 97. White count is 1.5, hemoglobin 8.5, platelets 35, potassium 3.3, BUN 24, creatinine 0.54. ASSESSMENT: 1. Thrush. 2. History of esophageal cancer. 3. Dysphagia. 4. Thrombocytopenia. 5. Dehydration. Admit the patient. Treat as mentioned above. One unit of blood transfusion. Treat for thrush. Prognosis guarded. Dr. Zaragoza for GI bleeding. Get Dr. Barron for esophageal cancer, pancytopenia, chemo, chemo side effects. MMODL / IJN: [id number] /
[2020-10-03 22:33] LABS: Glucose,Whole Blood 118 mg/dL (75-99)
[2020-10-03] MEDS ORDERED: NALOXONE 0.4 MG/ML 1 ML VIAL IV PRN (22:58)
[2020-10-03] MEDS ORDERED: SUCCINYLCHOLINE CHLORIDE VIAL 200 MG/10 ML VIAL IV ONE (23:39)
[2020-10-03] MEDS ORDERED: propofoL 100 ML IV ONE (23:39)
[2020-10-03] MEDS ORDERED: NOREPINEPHRIN 4 MG-0.9% NS PMX 4 MG/250 ML ML IV ONE (23:46)
--- NOTE | 2020-10-03 23:59 | P.EN ---
A team note patient with esophageal cancer. started having GI bleeding in the ED. hem/onc notified , ordered transufsion of blood and platelets. Gen surgery consulted patient will be transferred to the ICU , Dr Ray notified and approved the transfer. close monitoring Hgb q6hr supportive care.
[2020-10-04] MEDS ORDERED: METOCLOPRAMIDE 5 MG/ML 2 ML VIAL IVP SCH
[2020-10-04] MEDS ORDERED: NOREPINEPHRINE 4 MG in SODIUM CHLORIDE 0.9% 250 ML IV SCH (00:30)
--- NOTE | 2020-10-04 00:34 | XR ---
EXAMINATION TYPE: XR chest 1V portable DATE OF EXAM: 10/04/2020 COMPARISON: Yesterday HISTORY: Short of breath TECHNIQUE: Single view endotracheal tube is 3 cm from the francisca. There is left-sided central venous catheter with tip in the superior vena cava. There are chest leads. There is no pneumothorax. There i s subsegmental atelectasis at the lung bases. IMPRESSION: Minimal subsegmental atelectasis at the lung bases. Mild stable scarring at the right lung apex. No c hange. No heart failure.
[2020-10-04 00:43] LABS: ABG Oxygen Saturation 99.3 % (94-97); ABG PCO2 23 mmHg (35-45); ABG PO2 >400 mmHg (83-108); ABG TCO2 4 mmol/L (19-24); Allen Test Performed? Yes
[2020-10-04 00:47] LABS: ABG Base Excess -30.5 mmol/L; ABG HCO3 4 mmol/L (21-25); ABG PH 6.82 (7.35-7.45)
[2020-10-04] MEDS ORDERED: SODIUM BICARB 8.4% 50 ML SYR (1 MEQ/ML) IV STA (00:54)
[2020-10-04] MEDS ORDERED: DEXTROSE 5% IN WATER 1,000 ML with SODIUM BICARB (1 MEQ/ML) 150 ML IV SCH (01:00)
[2020-10-04 01:01] LABS: Anisocytosis Slight; HCT 25.7 % (39.0-53.0); HGB 7.7 gm/dL (13.0-17.5); Hypochromasia Marked; Macrocytosis Marked; Mean Platelet Volume 11.5; RBC 2.14 m/uL (4.30-5.90); RDW 18.4 % (11.5-15.5)
[2020-10-04 01:03] LABS: MCV 120.1 fL (80.0-100.0)
[2020-10-04 01:04] LABS: Platelet Count 38 k/uL (150-450)
[2020-10-04 01:24] LABS: INR 1.2 (<1.2); Partial Thromboplastin Time 63.6 sec (22.0-30.0); Prothrombin Time 12.6 sec (9.0-12.0)
[2020-10-04 01:27] LABS: Band Neutrophils % 44 %; Lymphocytes # (M) 0.27 k/uL (1.0-4.8); Metamyelocytes # (M) 0.16 k/uL (0); Metamyelocytes % 4 %; Monocytes # (M) 0.23 k/uL (0-1.0); Myelocytes # (M) 0.23 k/uL (0); Myelocytes % 6 %; Neutrophils % (M) 33 %; Nucleated Red Blood Cells 4 /100 WBC (0-0); Total Cells Counted 200; WBC 3.9 k/uL (3.8-10.6)
[2020-10-04 01:28] LABS: Anisocytosis (M) Present; Crenated RBC Present; Poikilocytosis (M) Present; Polychromasia Present; RBC Fragments Present
[2020-10-04 02:09] LABS: Albumin 2.4 g/dL (3.5-5.0); Calcium 7.9 mg/dL (8.4-10.2); Magnesium 2.8 mg/dL (1.6-2.3); Total Bilirubin 1.4 mg/dL (0.2-1.3); Total Protein 4.9 g/dL (6.3-8.2)
[2020-10-04] MEDS ORDERED: SCOPOLAMINE 1.5MG/72HR PATCH TRANSDERM SCH (02:30)
[2020-10-04] MEDS ORDERED: MORPHINE SULFATE (100 MG/2 ML) 100 MG in SODIUM CHLORIDE 0.9% 100 ML IV SCH (02:30)
[2020-10-04 02:35] LABS: Potassium 6.8 mmol/L (3.5-5.1)
[2020-10-04 02:51] VITALS: TEMP 97.4
[2020-10-04 03:15] VITALS: BP 98/41; PULSE 112; RESP 29
[2020-10-04] MEDS ORDERED: FLUCONAZOLE 150 MG TAB PEG/G-TUBE SCH (09:00)
[2020-10-04] MEDS ORDERED: PARoxetine 10 MG TAB PEG/G-TUBE SCH (09:00)
[2020-10-04] MEDS ORDERED: CHLORHEXIDINE GLUCONATE 15 ML CUP MUCOUS MEM SCH (09:00)
--- NOTE | 2020-10-04 13:20 | P.CONS ---
History of Present Illness - Reason for Consult Consult date: 10/04/20 eso cancer Requesting physician: Curtis Gotti - Chief Complaint difficulty swallowing - History of Present Illness Mr. sexton is a very pleasant male patient of Dr. Arnold, seen initially 11/19/17. Presented with swelling in the right neck, 1 month, associated symptoms of altered speech, nasal congestion, difficulty swallowing, audible changes and breath sounds. The mass was hard but not painful. CT showed a 4 x 3 cm mass involving the right tonsil, extending inferiorly into the hypopharynx on the right, downward extension measured 6 cm. Mass crossed the midline. Tumor felt to involve anterior triangle right side cervical lymph nodes. CTC AP was negative other than a 1.5 x 2 cm focus in the liver, felt indeterminate. Patient was seen by ENT, GI and pulmonary. She underwent tracheostomy due to concerns for airway compromise. PEG placed. Biopsies 11/22/17 from pharyngeal mass and FNA right-sided neck node positive for invasive, poorly differentiated, squamous cell carcinoma, P 16 positive. Staging PET scan 12/03/17 fungating mass along the lower nasopharynx, involved soft palate and pontine tonsils, extended to the right base of the tongue and right pharyngeal space, right nasopharyngeal airway was obliterated, some submandibular nodes, right cervical lymph node involvement. No evidence of metastatic disease. Patient was going to have induction chemotherapy with cisplatin and Taxotere but, was unable to mentally handle the diagnosis and treatment so he proceeded to hospice care. 01/29 he decided to come off hospice and seek treatment. He was restaged with a PET. Same diseases previous with additional disease in the right cervical area, left upper cervical node 2 areas of uptake in the T-spine. He was started on Carbo/Taxol/Erbitux. He completed 3 cycles on 05/13/18, with an excellent response, clinically and by PET. He was then started on RT, and continued the same chemo regimen on a weekly schedule. Completed chemoRT in the 1st wk of 07/31. Trach was removed in 08/30. PET 09/30 showed improved uptake in the temi area, with decrease in soft tissue at the primary site though uptake was slightly increased. He was then seen by Dr. Grayson, with multiple biopsies. Per the pt, one area was suspicious, but felt to be most likely negative on second opinion. PET 01/11/19 showed further decrease in uptake in the base of the tongue and temi areas but, new uptake with sclerosis in transverse process of T9, and the rt hip. MRI did not show suspicious findings in the thoracic spine, but right hip area was more suspicious. Referred for a bone biopsy, 03/12/19 from T9, positive for squamous cell carcinoma consistent with metastatic head and neck primary. He received radiation to the T9 lesion, completing that in 04/07. Started on 2nd line systemic therapy with Opdivo 04/18/19. He had follow- up scans in July/2019 and 03/22/20. He received SBRT to the right hip lesion in August 2019. He had an ENT examination that was nonspecific. PET earlier this year had some concern for left sternum, right lobe of the liver and at L5. Case was reviewed by corey veliz. L5 and the liver lesion were more suspicious, the hawkins al lesion was less specific. SBRT to treat those lesions was done completed at the end of April. Patient is currently s/p 14 cycles of up D well, due for cycle 15 today. Follow-up planned and scans are already scheduled for 06/01. Admitted in May for abd pain, had choleycystectomy Pt admitted iwth progressive dysphagia. D-dimer 17.1, lactic acid 21. He had hematemesis, cardiopulmonary arrest and is before seen. Past Medical History Past Medical History: Cancer, GI Bleed, Hyperlipidemia, Osteoarthritis (OA) Additional Past Medical History / Comment(s): Pt recently admitted to [facility] on 04/23/20 with abdominal pain, nausea/vomiting/fevers and was tx with antibiotics. 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 Past Anesthesia/Blood Transfusion Reactions: No Reported Reaction Past Psychological History: Anxiety, Depression Smoking Status: Former smoker Past Alcohol Use History: None Reported Past Drug Use History: None Reported - Past Family History Father Family Medical History: Cancer Additional Family Medical History / Comment(s): prostate cancer that spread to the brain Mother Family Medical History: Cancer Additional Family Medical History / Comment(s): ovarian cancer Sister(s) Family Medical History: Cancer Additional Family Medical History / Comment(s): breast cancer Medications and Allergies Home Medications Medication Instructions Recorded Confirmed Type PARoxetine HCL [Paxil] 10 mg PEG/G-TUBE DAILY 08/28/19 10/03/20 History ALPRAZolam [Xanax] 0.5 mg PEG/G-TUBE BID 02/16/20 10/03/20 History Aspirin 81 mg PEG/G-TUBE DAILY 03/02/20 10/03/20 History Jevity 1 can PEG/G-TUBE Q4H 06/10/20 10/03/20 History Allergies Allergy/AdvReac Type Severity Reaction Status Date / Time adhesive tape Allergy Rash/Hives Verified 10/03/20 11:01 latex Allergy Rash/Hives Verified 10/03/20 11:01 Physical Exam Vitals: Vital Signs Temp Pulse Resp BP Pulse Ox 10/04/20 03:00 112 H 29 H 98/41 74 L 10/04/20 02:50 112 H 29 H 104/57 10/04/20 02:40 115 H 39 H 100/54 74 L 10/04/20 02:30 115 H 32 H 114/58 74 L 10/04/20 02:20 114 H 40 H 100/71 74 L 10/04/20 02:10 114 H 39 H 120/88 69 L 10/04/20 02:00 111 H 40 H 137/99 77 L 10/04/20 01:50 112 H 39 H 132/97 75 L 10/04/20 01:40 112 H 39 H 141/91 78 L 10/04/20 01:30 117 H 38 H 123/73 68 L 10/04/20 01:20 124 H 37 H 92/67 69 L 10/04/20 01:10 133 H 32 H 101/56 61 L 10/04/20 01:00 115 H 0 L 72/51 38 L 10/04/20 00:50 120 H 39 H 48 L 10/04/20 00:45 97.4 F L 109 H 24 100/85 10/04/20 00:40 109 H 18 100/85 10/04/20 00:30 107 H 31 H 101/69 64 L 10/04/20 00:20 107 H 10 L 59/45 63 L 10/04/20 00:10 109 H 29 H 97/66 10/04/20 00:07 97.4 F L 109 H 29 H 97/66 10/04/20 00:00 129 H 16 74/59 10/03/20 23:50 135 H 24 53/31 10/03/20 23:40 124 H 6 L 111/89 10/03/20 23:37 97.8 F 10/03/20 23:30 147 H 37 H 138/93 10/03/20 23:27 101.2 F H 149 H 38 H 138/93 10/03/20 23:20 158 H 32 H 138/93 10/03/20 23:10 152 H 43 H 138/93 10/03/20 23:00 152 H 44 H 148/112 52 L 10/03/20 22:50 152 H 41 H 148/112 65 L 10/03/20 22:40 163 H 24 136/114 58 L 10/03/20 22:31 40 H 10/03/20 21:56 151 H 30 H 131/84 98 10/03/20 20:15 140/83 10/03/20 14:00 69 18 118/56 100 10/03/20 08:54 110 H 20 141/98 97 Intake and Output 10/03/20 10/04/20 10/04/20 22:59 06:59 14:59 Intake Total 653.836 Output Total 30 Balance 623.836 Intake: Intake, IV Titration 343.836 Amount Dextrose 5% in Water 1, 300 000 ml @ 150 mls/hr IV . Q7H40M DIANE with Sodium Bicarb (1 Meq/ml) 150 ml Rx#:[id number] Morphine Sulfate (100 mg/ 0.68 2 ml) 100 mg In Sodium Chloride 0.9% 100 ml @ 1 MG/HR 1.02 mls/hr IV . Q24H DIANE Rx#:[id number] Norepinephrine 4 mg In 20.201 Sodium Chloride 0.9% 250 ml @ 0.05 MCG/KG/MIN 12. 097 mls/hr IV .Q21H DIANE Rx#:[id number] propofoL 1,000 mg In 22.955 Empty Bag 1 bag @ Titrate IV .Q0M DIANE Rx#: [id number] Blood Product 310 Rc As-1 Unit 310 [id number] Output: Urine 30 Other: Voiding Method Indwelling Catheter Results CBC & Chem 7: 10/04/20 00:45 10/04/20 00:30 Labs: Abnormal Lab Results - Last 24 Hours (Table) 10/03/20 10/03/20 10/03/20 Range/Units 11:01 11:01 20:31 WBC 1.5 L 2.6 L (3.8-10.6) k/uL RBC 2.30 L 2.32 L (4.30-5.90) m/uL Hgb 8.5 L 8.7 L (13.0-17.5) gm/dL Hct 24.6 L 26.1 L (39.0-53.0) % MCV 107.1 H 112.3 H D (80.0-100.0) fL MCH 37.2 H 37.5 H (25.0-35.0) pg MCHC (31.0-37.0) g/dL RDW 20.0 H 19.5 H (11.5-15.5) % Plt Count 35 L 53 L D (150-450) k/uL Neutrophils # (Manual) 1.20 L (1.3-7.7) k/uL Lymphocytes # (Manual) 0.18 L 0.31 L (1.0-4.8) k/uL Metamyelocytes # (Man) 0.02 H 0.08 H (0) k/uL Myelocytes # (Manual) (0) k/uL Nucleated RBCs (0-0) /100 WBC Macrocytosis Marked A Marked A PT (9.0-12.0) sec INR (<1.2) APTT (22.0-30.0) sec D-Dimer (<0.60) mg/L FEU ABG pH (7.35-7.45) ABG pCO2 (35-45) mmHg ABG pO2 (83-108) mmHg ABG HCO3 (21-25) mmol/L ABG Total CO2 (19-24) mmol/L ABG O2 Saturation (94-97) % Potassium 3.3 L (3.5-5.1) mmol/L Chloride 110 H (98-107) mmol/L Carbon Dioxide 20 L (22-30) mmol/L BUN 24 H (9-20) mg/dL Creatinine 0.54 L (0.66-1.25) mg/dL Glucose (74-99) mg/dL POC Glucose (mg/dL) (75-99) mg/dL Plasma Lactic Acid Sherman (0.7-2.0) mmol/L Calcium 7.1 L (8.4-10.2) mg/dL Magnesium (1.6-2.3) mg/dL Total Bilirubin (0.2-1.3) mg/dL AST (17-59) U/L ALT (4-49) U/L Total Protein 5.4 L (6.3-8.2) g/dL Albumin 2.6 L (3.5-5.0) g/dL Crossmatch 10/03/20 10/03/20 10/04/20 Range/Units 20:31 22:31 00:30 WBC (3.8-10.6) k/uL RBC (4.30-5.90) m/uL Hgb (13.0-17.5) gm/dL Hct (39.0-53.0) % MCV (80.0-100.0) fL MCH (25.0-35.0) pg MCHC (31.0-37.0) g/dL RDW (11.5-15.5) % Plt Count (150-450) k/uL Neutrophils # (Manual) (1.3-7.7) k/uL Lymphocytes # (Manual) (1.0-4.8) k/uL Metamyelocytes # (Man) (0) k/uL Myelocytes # (Manual) (0) k/uL Nucleated RBCs (0-0) /100 WBC Macrocytosis PT 12.6 H (9.0-12.0) sec INR 1.2 H (<1.2) APTT 63.6 H (22.0-30.0) sec D-Dimer 17.17 H (<0.60) mg/L FEU ABG pH (7.35-7.45) ABG pCO2 (35-45) mmHg ABG pO2 (83-108) mmHg ABG HCO3 (21-25) mmol/L ABG Total CO2 (19-24) mmol/L ABG O2 Saturation (94-97) % Potassium (3.5-5.1) mmol/L Chloride (98-107) mmol/L Carbon Dioxide (22-30) mmol/L BUN (9-20) mg/dL Creatinine (0.66-1.25) mg/dL Glucose (74-99) mg/dL POC Glucose (mg/dL) 118 H (75-99) mg/dL Plasma Lactic Acid Sherman (0.7-2.0) mmol/L Calcium (8.4-10.2) mg/dL Magnesium (1.6-2.3) mg/dL Total Bilirubin (0.2-1.3) mg/dL AST (17-59) U/L ALT (4-49) U/L Total Protein (6.3-8.2) g/dL Albumin (3.5-5.0) g/dL Crossmatch See Detail 10/04/20 10/04/20 10/04/20 Range/Units 00:30 00:30 00:40 WBC (3.8-10.6) k/uL RBC (4.30-5.90) m/uL Hgb (13.0-17.5) gm/dL Hct (39.0-53.0) % MCV (80.0-100.0) fL MCH (25.0-35.0) pg MCHC (31.0-37.0) g/dL RDW (11.5-15.5) % Plt Count (150-450) k/uL Neutrophils # (Manual) (1.3-7.7) k/uL Lymphocytes # (Manual) (1.0-4.8) k/uL Metamyelocytes # (Man) (0) k/uL Myelocytes # (Manual) (0) k/uL Nucleated RBCs (0-0) /100 WBC Macrocytosis PT (9.0-12.0) sec INR (<1.2) APTT (22.0-30.0) sec D-Dimer (<0.60) mg/L FEU ABG pH 6.82 L* (7.35-7.45) ABG pCO2 23 L (35-45) mmHg ABG pO2 >400 H (83-108) mmHg ABG HCO3 4 L* (21-25) mmol/L ABG Total CO2 4 L (19-24) mmol/L ABG O2 Saturation 99.3 H (94-97) % Potassium 6.8 H* (3.5-5.1) mmol/L Chloride 110 H (98-107) mmol/L Carbon Dioxide 5 L* (22-30) mmol/L BUN 29 H (9-20) mg/dL Creatinine 1.54 H (0.66-1.25) mg/dL Glucose 104 H (74-99) mg/dL POC Glucose (mg/dL) (75-99) mg/dL Plasma Lactic Acid Sherman 21.0 H* (0.7-2.0) mmol/L Calcium 7.9 L (8.4-10.2) mg/dL Magnesium 2.8 H (1.6-2.3) mg/dL Total Bilirubin 1.4 H (0.2-1.3) mg/dL AST 346 H (17-59) U/L ALT 283 H (4-49) U/L Total Protein 4.9 L (6.3-8.2) g/dL Albumin 2.4 L (3.5-5.0) g/dL Crossmatch 10/04/20 Range/Units 00:45 WBC (3.8-10.6) k/uL RBC 2.14 L (4.30-5.90) m/uL Hgb 7.7 L (13.0-17.5) gm/dL Hct 25.7 L (39.0-53.0) % MCV 120.1 H D (80.0-100.0) fL MCH 36.0 H (25.0-35.0) pg MCHC 30.0 L (31.0-37.0) g/dL RDW 18.4 H (11.5-15.5) % Plt Count 38 L (150-450) k/uL Neutrophils # (Manual) (1.3-7.7) k/uL Lymphocytes # (Manual) 0.27 L (1.0-4.8) k/uL Metamyelocytes # (Man) 0.16 H (0) k/uL Myelocytes # (Manual) 0.23 H (0) k/uL Nucleated RBCs 4 H (0-0) /100 WBC Macrocytosis Marked A PT (9.0-12.0) sec INR (<1.2) APTT (22.0-30.0) sec D-Dimer (<0.60) mg/L FEU ABG pH (7.35-7.45) ABG pCO2 (35-45) mmHg ABG pO2 (83-108) mmHg ABG HCO3 (21-25) mmol/L ABG Total CO2 (19-24) mmol/L ABG O2 Saturation (94-97) % Potassium (3.5-5.1) mmol/L Chloride (98-107) mmol/L Carbon Dioxide (22-30) mmol/L BUN (9-20) mg/dL Creatinine (0.66-1.25) mg/dL Glucose (74-99) mg/dL POC Glucose (mg/dL) (75-99) mg/dL Plasma Lactic Acid Sherman (0.7-2.0) mmol/L Calcium (8.4-10.2) mg/dL Magnesium (1.6-2.3) mg/dL Total Bilirubin (0.2-1.3) mg/dL AST (17-59) U/L ALT (4-49) U/L Total Protein (6.3-8.2) g/dL Albumin (3.5-5.0) g/dL Crossmatch
--- NOTE | 2020-10-06 15:06 | CDI ---
Documentation Clarification Form Mortality Review Date: 10/06/2020 02:55:58 PM From: Sarah Ramos RN, CCDS Admit Date: 10/03/2020 10:01:00 PM Patient Name: Jonathan Dotson Visit Number: [id number] Discharge Date: 10/04/2020 03:20:00 AM ATTENTION: The Clinical Documentation Specialists (CDI) and [facility] Coding Staff appreciate your assistance in clarifying documentation. Please respond to the clarification below the line at the bottom and electronically sign. The CDI & [facility] Coding staff will review the response and follow-up if needed. Please note: Queries are made part of the Legal Health Record. If you have any questions, please contact the author of this message via ITS. Dr. Raphael Kaufman Your patient has a declining hemoglobin/hematocrit level in the presence of hematemesis. Please clarify if there is an additional diagnosis and/or clinical significance related to these lab values. History/Risk Factors: Esophageal CA, Pancytopenia, thrush, Dysphagia, Dehydration, GIB, Colostomy with reversal, Cachectic Clinical indicators: Hgb: 8.5/8.7/7.7 Hct: 24.6/26.1/25.7 10/04 Oncology Consult: "He had hematemesis." 10/03 A-team Note: "patient with esophageal cancer. Started having GI bleeding in the ED. Hem/Onc notified, ordered transfusion of blood and platelets. Gen surgery consulted patient will be transferred to the ICU , Dr. Ray notified and approved the transfer. Close monitoring Hgb q6hr. Supportive care. Treatment: 1 Unit PRBC's transfused 8221L IVF bolus 0.9% NS Is there an additional diagnosis and/or clinical significance related to the above lab result/information? [ ] Acute blood loss anemia secondary to hematemesis [ ] Anemia due to malignancy [ ] Nutritional anemia [ ] Unable to determine [ ] Other, please specify (Template Last Revised: March 2020) MTDD
--- NOTE | 2020-10-06 15:17 | CDI ---
Documentation Clarification Form Date: 10/06/2020 03:13:55 PM From: Sarah Ramos RN, CCDS Admit Date: 10/03/2020 10:01:00 PM Patient Name: Jonathan Dotson Visit Number: [id number] Discharge Date: 10/04/2020 03:20:00 AM ATTENTION: The Clinical Documentation Specialists (CDI) and [facility] Coding Staff appreciate your assistance in clarifying documentation. Please respond to the clarification below the line at the bottom and electronically sign. The CDI & [facility] Coding staff will review the response and follow-up if needed. Please note: Queries are made part of the Legal Health Record. If you have any questions, please contact the author of this message via ITS. Dr. Raphael Kaufman An acute increase in creatinine and decrease in GFR have been noted on 10/04. Additional clarification regarding the clinical significance of the acute increase in creatinine and decrease in GRF is requested. History/Risk factors: 09/23 Patients baseline BUN/CR and GFR: 2/.8/93.7 Dehydration, Esophageal CA, Hematemesis, Decreased B/P, Elevated HR, Elevated RR with decreased O2 sats for prolonged period Clinical Indicators: 10/03-10/04 BUN: 24/ Creatinine .054/1.54 GFR >90, 47 Urinalysis: not done Treatment: 10/03 1 unit PRBC's transfused 10/03 IV Levophed Gtt- titrate for B/P 10/03 0.9% NS IVF Bolus 1L 10/04 D5W w/ 3 amps HCO3 Gtt @ 150 ml/hr. Please clarify the clinical significance of the acute change in Creatinine and GFR, if known: [ ] Acute Renal Failure with Acute Tubular Necrosis [ ] Acute Renal Failure with other specified pathological cause, please specify [ ] Acute Renal Failure with other cause, please specify [ ] Unable to determine [ ] Other, please specify (Template Last Revised: April 2020) MTDD
--- NOTE | 2020-10-06 15:24 | CDI ---
Documentation Clarification Form Date: 10/06/2020 03:18:13 PM From: Sarah Ramos RN, CCDS Admit Date: 10/03/2020 10:01:00 PM Patient Name: Jonathan Dotson Visit Number: [id number] Discharge Date: 10/04/2020 03:20:00 AM ATTENTION: The Clinical Documentation Specialists (CDI) and [facility] Coding Staff appreciate your assistance in clarifying documentation. Please respond to the clarification below the line at the bottom and electronically sign. The CDI & [facility] Coding staff will review the response and follow-up if needed. Please note: Queries are made part of the Legal Health Record. If you have any questions, please contact the author of this message via ITS. Dr. Raphael Kaufman Your patient has an abnormal lab value noted with acute increase in potassium level on 10/04 from 3.3 to 6.8. Please clarify if there is an additional diagnosis and/or clinical significance related to this value. History/Risk Factors: Esophageal cancer, GIB, Hematemesis Clinical indicators: 10/03-10/04 Labs: K+ 3.3/6.8, BUN 24/29/, creatinine .54/1.54, GFR >90/47, lactic acid 21, AST 38/346, ALT 28/283 Treatment: 10/03 1L 0.9% NS IVF Bolus followed by 100 cc/hr. 10/03 I unit PRBC's Is there an additional diagnosis and/or clinical significance related to the above lab result/information? [ ] Hyperkalemia [ ] No additional diagnosis/Not clinically significant [ ] Other, please specify [ ] Unable to determine (Template Last Revised: March 2020) MTDD
--- NOTE | 2020-10-06 15:32 | CDI ---
Documentation Clarification Form Date: 10/06/2020 03:30:46 PM From: Sarah Ramos RN, CCDS Admit Date: 10/03/2020 10:01:00 PM Patient Name: Jonathan Dotson Visit Number: [id number] Discharge Date: 10/04/2020 03:20:00 AM ATTENTION: The Clinical Documentation Specialists (CDI) and [facility] Coding Staff appreciate your assistance in clarifying documentation. Please respond to the clarification below the line at the bottom and electronically sign. The CDI & [facility] Coding staff will review the response and follow-up if needed. Please note: Queries are made part of the Legal Health Record. If you have any questions, please contact the author of this message via ITS. Dr. Raphael Kaufman Your patient has an abnormal lab value: 10/04 Lactic Acid 21. Please clarify if there is an additional diagnosis and/or clinical significance related to this value. History/Risk Factors: Thrush, hematemesis, pancytopenia, dehydration, Esophageal CA Clinical indicators: 10/04 Lactic Acid 21 ABG: PH 6.82, pCO2 23, pO2 >400 on 100% FIO2, HCO3 4, Total CO2 4, Base Excess -30.5 Treatment: Pt intubated and placed on mechanical ventilation 1L 0.9% IVF Bolus followed by 100 cc/hr. Levophed Gtt titrate for B/P D5W with 3 amps of HCO3 Gtt at 150 cc/hr. 3 Amps HCO3 IVP x 1 Is there an additional diagnosis and/or clinical significance related to the above lab result/information? [ ] Lactic Acidosis (please specify cause if known) [ ] No additional diagnosis/Not clinically significant [ ] Other, please specify [ ] Unable to determine (Template Last Revised: March 2020) MTDD
--- NOTE | 2020-10-06 15:42 | CDI ---
Documentation Clarification Form Date: 10/06/2020 03:40:27 PM From: Sarah Ramso RN, CCDS Admit Date: 10/03/2020 10:01:00 PM Patient Name: Jonathan Dotson Visit Number: [id number] Discharge Date: 10/04/2020 03:20:00 AM ATTENTION: The Clinical Documentation Specialists (CDI) and [facility] Coding Staff appreciate your assistance in clarifying documentation. Please respond to the clarification below the line at the bottom and electronically sign. The CDI & [facility] Coding staff will review the response and follow-up if needed. Please note: Queries are made part of the Legal Health Record. If you have any questions, please contact the author of this message via ITS. Dr. Raphael Kaufman Your patient has an abnormal lab value with an acute increase in LFT's noted on 10/04. Please clarify if there is an additional diagnosis and/or clinical significance related to this value. History/Risk Factors: Thrush, Esophageal CA, Dysphagia, Hematemesis, Pancytopenia, Dehydration Clinical indicators: 10/03-09/14 AST: 38/346 ALT: 28/283 Lactic Acid: 21 10/04 2350 Pt Intubated at this time; HR 135, RR 24, B/P 53/31, SPO2 63% on 100% FIO2 Treatment: IVF Bolus 0.9% NS 1L followed by 100 cc/hr. D5W with 3 amps HCO3 @ 150 cc/hr. Levophed Gtt titrate for B/P Is there an additional diagnosis and/or clinical significance related to the above lab result/information? [ ] Acute Shocked Liver (specify cause if known) [ ] No additional diagnosis/Not clinically significant [ ] Other, please specify [ ] Unable to determine (Template Last Revised: March 2020) MTDD
--- NOTE | 2020-10-06 16:00 | CDI ---
Documentation Clarification Form Date: 10/06/2020 03:43:22 PM From: Sarah Ramos RN, CCDS Admit Date: 10/03/2020 10:01:00 PM Patient Name: Jonathan Dotson Visit Number: [id number] Discharge Date: 10/04/2020 03:20:00 AM ATTENTION: The Clinical Documentation Specialists (CDI) and [facility] Coding Staff appreciate your assistance in clarifying documentation. Please respond to the clarification below the line at the bottom and electronically sign. The CDI & [facility] Coding staff will review the response and follow-up if needed. Please note: Queries are made part of the Legal Health Record. If you have any questions, please contact the author of this message via ITS. Dr. Raphael Kaufman Your patient has presented with at Spo2 97% on room air and had increased O2 needs with decreasing saturations requiring mechanical ventilation. Based on this information and the findings below, is there an additional diagnosis that is clinically appropriate for this patient? History/Risk Factors: Dysphagia, Peg tube, Hematemesis, Esophageal CA, Thrush, Chemotherapy, Dehydration Tobacco use: former smoker Home oxygen: hx of Trach removed 08/2018 Clinical Indicators: 10/03 0744 Admission V/S: Temp 98.8, HR 110, RR 20, B/P 140/99, Spo2 97% RA 10/04 2239 Vital Signs: HR 163, RR 44, B/P 136/114, Spo2 58% on 5L NC 10/03 ED Lung/Breathing assessment: "Unlabored respirations. Patient is moving good air however have some crackles in the right base." ABG/CBG: pH 6.82 pO2 >400 on 100% FIO2 pCO2 23 HCO3 4 Lactate-30.5 10/04 0516 Nurses Note: Patient admitted from Emergency Room to Room 256 in critical condition. Heart rate 160's, SPO2 compromised, RR 40-50's, anxious and restless. Unable to get blood work on patient. Dr. Ray notified of patients deteriorating condition. Family updated and via phone call patient and spouse decided on FULL CODE status to initiate intubation. CEO NA paged to intubate patient and possible line placement. Intubation completed 2244, unable to place line. Emergency Room called for placement of IO line. At that time ABG was completed with critical results. Dr. Ray Notified of critical values and Bicarb order was obtained. Family was notified of patients condition and arrived at hospital. At that point family decided to move patient to a NO CODE and once daughter had arrived, moved to [facility]. Patient extubated per family wishes at 0319, 0320. Family expressed wishes of [address] for services. Body released from examiner and transferred to home. All questions answered. Treatment: Breathing TX: none ordered Continuous Pulse ox: Per ICU Protocol O2 increased from room air to 2l NC to 5L NC to 100% MV Mechanical Ventilation: AC 400, RR 24, FIO2 100%, PEEP 5 Pulmonary consult ordered- Pt was never seen before expiration Is there an additional diagnosis that is clinically appropriate for this patient? [ ] Acute on Chronic Hypoxic Respiratory Failure (pO2 <60 mm Hg or SpO2 <91% on room air) [ ] Acute on Chronic Hypercapnic Respiratory Failure (pCO2 >50 and pH <7.35) [ ] Other Diagnosis, please specify [ ] Unable to determine (Template Last Revised: April 2020) MTDD
--- NOTE | 2020-10-06 16:18 | CDI ---
Documentation Clarification Form Date: 10/06/2020 04:16:45 PM From: Sarah Ramos RN, CCDS Admit Date: 10/03/2020 10:01:00 PM Patient Name: Jonathan Dotson Visit Number: [id number] Discharge Date: 10/04/2020 03:20:00 AM ATTENTION: The Clinical Documentation Specialists (CDI) and [facility] Coding Staff appreciate your assistance in clarifying documentation. Please respond to the clarification below the line at the bottom and electronically sign. The CDI & [facility] Coding staff will review the response and follow-up if needed. Please note: Queries are made part of the Legal Health Record. If you have any questions, please contact the author of this message via ITS. Dr. Raphael Kaufman Several Low B/P reading have been documented. Additional clarification regarding the clinical significance is requested as patient was treated with vasopressors. History/Risk Factors: Esophageal CA, Thrush, Dehydration, Hematemesis Clinical Indicators: 10/03 Admission VS: Temp 98.8m, HR 110, RR 20, B/P 140/99, Spo2 97% RA 10/03 2350 HR 135, RR 24, D/P 53/31, Spo2 63% on 100% MV 10/04 0100 V/S; HR 115, RR 32, B/P 72/51, Spo2 38% on 100% MV Treatment: Levophed Gtt titrate for B/P 10/03 1L 0.9% NS IVF Bolus' 10/03 1 U PRBC's transfused 10/04 D5W with 3 Amps HCO3 @ 150 cc/hr. and 0.9% NS @ 100 cc/hr. Low B/P Readings be further specified? [ ] Hypovolemic shock secondary to hematemesis [ ] Septic shock secondary to Elle Sepsis r/t thrush [ ] Hypotension due to other causes (please specify) [ ] Hypotension is not clinically significant [ ] Other Condition, please specify [ ] Unable to determine (Template Last Revised: April 2020) MTDD
--- NOTE | 2020-10-07 20:02 | PN ---
PROGRESS NOTE Please add acute blood loss anemia secondary to hematemesis, acute renal failure with acute tubular necrosis, hyperkalemia, lactic acidosis due to shock liver secondary to GI bleed, acute on chronic hypoxemic respiratory failure, hypovolemic shock secondary to hematemesis. MMESAU / IJN: [id number] /
== END 2020-10-04 03:20 | disposition expired | DRG 377 ==
LOC: EC 07:39 → 4SSUR 15:03 → 2SICU 21:59 → OBSVTOIN 22:01 → 2SICU 22:11
PROVIDERS: ADMIT Family Medicine; ATTEND Family Medicine
PROC: 30233N1 Transfusion of Nonautologous Red Blood Cells into Peripheral Vein, Percutaneous Approach (ICD-10-PCS; principal; 2020-10-03)
DX: K92.0 Hematemesis (principal); N17.0 Acute kidney failure with tubular necrosis; K72.00 Acute and subacute hepatic failure without coma; J96.21 Acute and chronic respiratory failure with hypoxia; C15.9 Malignant neoplasm of esophagus, unspecified; D61.818 Other pancytopenia; B37.0 Candidal stomatitis; D62 Acute posthemorrhagic anemia; E87.2 Acidosis; R13.10 Dysphagia, unspecified; Z87.01 Personal history of pneumonia (recurrent); Z93.1 Gastrostomy status; Z80.42 Family history of malignant neoplasm of prostate; Z80.3 Family history of malignant neoplasm of breast; R57.1 Hypovolemic shock; Z20.822 Contact with and (suspected) exposure to COVID-19; Z51.5 Encounter for palliative care; Z66 Do not resuscitate; E78.5 Hyperlipidemia, unspecified; E86.0 Dehydration; J06.9 Acute upper respiratory infection, unspecified; E87.5 Hyperkalemia; Z79.899 Other long term (current) drug therapy; Z79.82 Long term (current) use of aspirin; Z92.3 Personal history of irradiation; Z87.891 Personal history of nicotine dependence
CPT/HCPCS: 36415; 36600; 71045; 71046; 74177; 80053; 82805; 83605; 83735; 85025; 85379; 85610; 85730; 86850; 86900; 86901; 86920; 87635; 94002; 96361; 96374; 96375; 99285